=== PATIENT | male | born 1965 | race African-American/Black ===

== ENCOUNTER 2017-01-31 15:53 | Inpatient (IN) | payer OTHER ==
[2017-01-31 17:00] VITALS: BMI 33.5
--- NOTE | 2017-01-31 19:27 | HP ---
CIWA Score - CIWA Score Nausea/Vomitin Muscle Tremors: 4-Moderate,w/Arms Extend Anxiety: 5 Agitation: 5 Paroxysmal Sweats: 2 Orientation: 0-Oriented Tacttile Disturbances: 0-None Auditory Disturbances: 0-None Visual Disturbances: 0-None Headache: 1-Very Mild CIWA-Ar Total Score: 20 Admission ROS BHS - HPI Chief Complaint: WITHDRAWAL SYMPTOMS Allergies/Adverse Reactions: Allergies Allergy/AdvReac Type Severity Reaction Status Date / Time RASHAD Inhibitors Allergy Severe Swelling Verified 12/21/16 18:37 lisinopril Allergy Severe Swelling Verified 12/21/16 18:37 History of Present Illness: 51 Y.O. MAN WITH AN EXTENSIVE HISTORY OF ALCOHOL DEPENDENCE IS SEEKING DETOX. HE WAS LAST HERE FOR DETOX IN 12/2016. HE DENIES ANY SIGNIFICANT PERIOD OF SOBRIETY. Exam Limitations: Intoxication - Ebola screening Have you traveled outside of the country in the last 21 days: No Have you had contact with anyone from an Ebola affected area: No Have you been sick,other than usual withdrawal symptoms: No Do you have a fever: No - Review of Systems Constitutional: Chills, Diaphoresis EENT: reports: No Symptoms Reported Respiratory: reports: No Symptoms reported Cardiac: reports: No Symptoms Reported GI: reports: No Symptoms Reported : reports: No Symptoms Reported Musculoskeletal: reports: No Symptoms Reported Integumentary: reports: No Symptoms Reported Neuro: reports: Tremors Endocrine: reports: No Symptoms Reported Hematology: reports: No Symptoms Reported Psychiatric: reports: Anxious, Depressed Other Systems: Reviewed and Negative Patient History - Patient Medical History Hx Anemia: No Hx Asthma: No Hx Chronic Obstructive Pulmonary Disease (COPD): No Hx Cancer: No Hx Cardiac Disorders: Yes (CAD, REPORTS [place] IN 2013) Hx Congestive Heart Failure: No Hx Hypertension: Yes (on meds.) Hx Hypercholesterolemia: Yes (gemfibrozil 600 mg po bid) Hx Pacemaker: No HX Cerebrovascular Accident: No Hx Seizures: No Hx Dementia: No Hx Diabetes: Yes (Type II) Hx Gastrointestinal Disorders: No Hx Liver Disease: No Hx Genitourinary Disorders: No Hx Sexually Transmitted Disorders: No Hx Renal Disease (ESRD): No Hx Thyroid Disease: No Hx Human Immunodeficiency Virus (HIV): No (NEGATIVE HX) Hx Hepatitis C: No Hx Depression: Yes Hx Suicide Attempt: No Hx Bipolar Disorder: No Hx Schizophrenia: No - Patient Surgical History Past Surgical History: No Hx Neurologic Surgery: No Hx Cataract Extraction: No Hx Cardiac Surgery: No Hx Lung Surgery: No Hx Breast Surgery: No Hx Breast Biopsy: No Hx Abdominal Surgery: No Hx Appendectomy: No Hx Cholecystectomy: No Hx Genitourinary Surgery: Yes (left kidney stone 2015) Hx Section: No Hx Orthopedic Surgery: No Other Surgical History: left kidney stone removed 11/2015 Anesthesia Reaction: No - Reproductive History Patient is a Female of Child Bearing Age (11 -55 yrs old): No - Smoking Cessation Smoking history: Never smoked Have you smoked in the past 12 months: No If you are a former smoker, when did you quit?: STOPPED "IN MY TEENS" Cigars Per Day: 0 Hx Chewing Tobacco Use: No - Substance & Tx. History Hx Alcohol Use: Yes Hx Substance Use: No Substance Use Type: Alcohol Hx Substance Use Treatment: Yes (DETOX AND REHAB ) - Substances Abused Alcohol Route: Oral Frequency: Daily Amount used: 1-2 PINTS OF VODKA; 2-3 CANS 24 OZ OF BEER Age of first use: 19 Date of Last Use: 01/31/17 Family Disease History - Family Disease History Family Disease History: Heart Disease: Mother (HTN), Other: Mother Admission Physical Exam S - Vital Signs Vital Signs: Vital Signs - 24 hr 01/31/17 16:58 Temperature 99.8 F H Pulse Rate 127 H Respiratory 20 Rate Blood Pressure 138/82 - Physical General Appearance: Yes: Disheveled, Tremorous, Irritable, Anxious HEENTM: Yes: Hearing grossly Normal, Normal ENT Inspection, Normal Voice Respiratory: Yes: Chest Non-Tender, Lungs Clear, Normal Breath Sounds, No Respiratory Distress, No Accessory Muscle Use Neck: Yes: Trachea in good position Breast: Yes: Breast Exam Deferred Cardiology: Yes: Tachycardia Abdominal: Yes: Flat, Soft Genitourinary: Yes: Other (NO COMPLAINTS REPORTED) Back: Yes: Normal Inspection Musculoskeletal: Yes: Other (UNSTEADY GAIT) Extremities: Yes: Tremors Neurological: Yes: Alert Integumentary: Yes: Dry, Warm Lymphatic: Yes: Within Normal Limits - Diagnostic (1) Alcohol dependence with uncomplicated withdrawal Current Visit: Yes Status: Chronic (2) Essential (primary) hypertension Current Visit: Yes Status: Chronic Comment: 169/ atenolon 100 mg + amlodipine 10 mg now (3) Hyperlipemia Current Visit: Yes Status: Chronic Qualifiers: Hyperlipidemia type: pure hypercholesterolemia (4) Type 2 diabetes mellitus Current Visit: Yes Status: Chronic Qualifiers: Diabetes mellitus complication status: with hypoglycemia Diabetes mellitus complication detail: without coma Diabetes mellitus long term care administrator insulin use: unspecified nursing home insulin use status Qualified Code(s): E11.649 - Type 2 diabetes mellitus with hypoglycemia without coma; Z79.4 - custodial (current) use of insulin Comment: refuse metformin begin bgm qid + insulin coverage hgb a1c pending (5) History of positive PPD Current Visit: Yes Status: Chronic Cleared for Admission [facility] - Detox or Rehab [facility] Level of Care: Medically Managed Detox Regimen/Protocol: Valium [facility] Breath Alcohol Content Breath Alcohol Content: 0.219 Urine Drug Screen - Results Drug Screen Negative: No Urine Drug Screen Results: BZO-Benzodiazepines
[2017-01-31] MEDS ORDERED: diazePAM 5 MG TABLET PO ONE (19:40)
[2017-01-31] MEDS ORDERED: P-EPHED 60MG/TRIPROLIDI 2.5MG TABLET PO PRN (19:40)
[2017-01-31] MEDS ORDERED: LOPERAMIDE HCL 2 MG CAPSULE PO PRN (19:40)
[2017-01-31] MEDS ORDERED: guaiFENesin/D-METHORPHAN HB 10 ML UNIT-DOSE CUPS PO PRN (19:40)
[2017-01-31] MEDS ORDERED: MAG HYDROX/AL HYDROX/SIMETH 30 ML UNIT-DOSE CUP PO PRN (19:40)
[2017-01-31] MEDS ORDERED: IBUPROFEN 400 MG TABLET (FP) PO PRN (19:40)
[2017-01-31] MEDS ORDERED: ACETAMINOPHEN 325 MG TABLET (FP) PO PRN (19:40)
[2017-01-31] MEDS ORDERED: MAGNESIUM CITRATE 300 ML BOTTLE PO PRN (19:40)
[2017-01-31] MEDS ORDERED: MENTHOL/PHENOL 1 EACH UD MM PRN (19:40)
[2017-01-31] MEDS ORDERED: hydrOXYzine PAMOATE 50 MG CAPSULE (FP) PO PRN (19:40)
[2017-01-31] MEDS ORDERED: MAGNESIUM HYDROX 2400MG/30ML ORAL SUSPENSION 30 ML CUP PO PRN (19:40)
[2017-01-31] MEDS ORDERED: diphenhydrAMINE HCL 50 MG CAPSULE PO PRN (19:40)
[2017-01-31] MEDS ORDERED: THIAMINE HCL 100 MG TABLET (FP) PO SCH (22:00)
[2017-01-31] MEDS ORDERED: ATORVASTATIN CA 20 MG TABLET (FP) PO SCH (22:00)
[2017-01-31] MEDS: diazePAM 5 MG TABLET PO SCH (23:55)
[2017-02-01] MEDS: diazePAM 5 MG TABLET PO SCH ×3 (06:03→22:16)
[2017-02-01] MEDS: INSULIN SLIDING SCALE (NOVOLOG) 1 VIAL SQ SCH ×2 (07:45→18:15)
[2017-02-01] MEDS: metFORMIN HCL 500 MG TABLET (FP) PO SCH ×2 (08:48→18:51)
--- NOTE | 2017-02-01 08:52 | CONSULT ---
[facility] Psychiatric Consult - Data Date of interview: 02/01/17 Admission source: [facility] Identifying data: This is 51 years old male with no psychiatric hospitalization history intoxicated with: Alcohol Substance Abuse History: - Smoking Cessation. Smoking history: Never smoked. Have you smoked in the past 12 months: No. If you are a former smoker, when did you quit?: STOPPED "IN MY TEENS". Cigars Per Day: 0. Hx Chewing Tobacco Use: No. - Substance & Tx. History. Hx Alcohol Use: Yes. Hx Substance Use: No. Substance Use Type: Alcohol. Hx Substance Use Treatment: Yes (DETOX AND REHAB ). - Substances Abused. Alcohol. Route: Oral. Frequency: Daily. Amount used: 1-2 PINTS OF VODKA; 2-3 CANS 24 OZ OF BEER. Age of first use: 19. Date of Last Use: 01/31/17 Medical History: HTN, PPD+ history, Hyperlipidemia. History of VT, DM-2, Obesity , CAD, Psychiatric History: Patient reports history of depression , reports taking prior to admission Zoloft 50mg poqd, refusing to restart it Physical/Sexual Abuse/Trauma History: Denies Additional Comment: Observation. Detox Unit Care Protocol Mental Status Exam - Mental Status Exam Alert and Oriented to: Person Cognitive Function: Fair Patient Appearance: Unkempt Mood: Sad Affect: Flat Patient Behavior: Sedated Speech Pattern: Delayed Voice Loudness: Mildly Soft/Quiet Thought Process: Circumstantial Thought Disorder: Being Controlled Hallucinations: Denies Suicidal Ideation: Denies Homicidal Ideation: Denies Insight/Judgement: Fair Sleep: Difficulty falling asleep Appetite: Weight gain Muscle strength/Tone: Mild Hypotonicity Gait/Station: Shuffling Additional Comments: Observation. Detox Unit Care Protocol Psychiatric Findings - Problem List ([place] 1, 2,3) (1) Alcohol dependence with uncomplicated withdrawal Current Visit: Yes Status: Chronic (2) Depressive disorder Current Visit: No Status: Acute (3) Substance induced mood disorder Current Visit: No Status: Acute (4) Obesity Current Visit: No Status: Chronic Qualifiers: Obesity type: unspecified obesity type Obesity severity: morbid Qualified Code(s): E66.01 - Morbid (severe) obesity due to excess calories (5) Alcohol-induced mood disorder Current Visit: Yes Status: Acute - Initial Treatment Plan Initial Treatment Plan: Observation. Detox Unit Care Protocol
[2017-02-01] MEDS ORDERED: ATENOLOL 50 MG TABLET (FP) PO SCH (10:00)
[2017-02-01] MEDS ORDERED: ASPIRIN 81 MG CHEWABLE TABLETS PO SCH (10:00)
[2017-02-01] MEDS ORDERED: PRENATAL VITAMINS W/ FOLIC ACID TABLET (FP) PO SCH (10:00)
[2017-02-01] MEDS ORDERED: amLODIPine BESYLATE 10 MG TABLET (FP) PO SCH (10:00)
[2017-02-01] MEDS: diazePAM 5 MG TABLET PO PRN ×2 (10:20→18:15)
--- NOTE | 2017-02-01 10:41 | PN ---
BHS CIWA - CIWA Score Nausea/Vomitin Muscle Tremors: 2 Anxiety: 2 Agitation: 2 Paroxysmal Sweats: 3 Orientation: 0-Oriented Tacttile Disturbances: 2-Mild Itch/Numbness/Burn Auditory Disturbances: 0-None Visual Disturbances: 0-None Headache: 0-None Present CIWA-Ar Total Score: 13 BHS Progress Note (SOAP) Subjective: interrupted sleep, sweats but better Objective: 02/01/17 10:40 Vital Signs Temperature 98.2 F 02/01/17 09:57 Pulse Rate 117 H 02/01/17 09:57 Respiratory Rate 18 02/01/17 09:57 Blood Pressure 160/100 02/01/17 09:57 O2 Sat by Pulse Oximetry (%) Laboratory Tests 01/31/17 02/01/17 20:33 06:03 POC Glucometer 177 128 Laboratory Tests 01/31/17 02/01/17 20:33 06:03 POC Glucometer 177 128 pt aox3 in nad ambulating Assessment: 02/01/17 10:41 withdrawal sx's Plan: cont. detox increase fluids
[2017-02-01 10:42] LABS: MCH 28.7 pg (25.7-33.7); MCHC 33.8 g/dl (32.0-35.9); MEAN PLT VOLUME 7.2 fl (7.5-11.1); PLATELET COUNT 289 K/MM3 (134-434); RDW 13.8 % (11.9-15.9); WHITE BLOOD COUNT 4.1 K/mm3 (4.0-10.0)
[2017-02-01 11:09] LABS: ALBUMIN 3.7 g/dl (3.4-5.0); ALK PHOS 105 U/L (45-117); ANION GAP 11 (8-16); BILIRUBIN,TOTAL 0.3 mg/dL (0.2-1.0); CALCIUM 8.7 mg/dL (8.5-10.1); CO2 26 mmol/L (21-32); COCKROFT - GAULT 162.15; CREATININE 0.8 mg/dL (0.7-1.3); GLUCOSE,RANDOM 124 mg/dL (74-106); SGOT/AST 59 U/L (15-37); SGPT/ALT 58 U/L (12-78); TOT PROT 7.5 g/dl (6.4-8.2)
[2017-02-01 11:45] LABS: HIV 1 & 2 AB NEGATIVE; HIV 1 AGp24 NEGATIVE
[2017-02-01] MEDS: GEMFIBROZIL 600 MG TABLET (FP) PO SCH ×2 (12:22→18:51)
--- NOTE | 2017-02-01 12:32 | EKG ---
Test Reason : Blood Pressure : / mmHG Vent. Rate : 110 BPM Atrial Rate : 110 BPM P-R Int : 174 ms QRS Dur : 080 ms QT Int : 314 ms P-R-T Axes : 040 043 181 degrees QTc Int : 424 ms SINUS TACHYCARDIA POSSIBLE LEFT ATRIAL ENLARGEMENT T WAVE ABNORMALITY, CONSIDER INFERIOR ISCHEMIA ABNORMAL ECG WHEN COMPARED WITH ECG OF 22-DEC-2016 07:22, T WAVE INVERSION NOW EVIDENT IN INFERIOR LEADS Confirmed by SAM BISHOP, LISANDRO ([id number]) on 02/01/2017 12:32:03 PM Referred By: Confirmed By:LISANDRO VARGAS MD
[2017-02-01] MEDS ORDERED: ACETAMINOPHEN 325 MG TABLET (FP) PO PRN (17:33)
[2017-02-01] MEDS ORDERED: P-EPHED 60MG/TRIPROLIDI 2.5MG TABLET PO PRN (17:34)
[2017-02-01] MEDS ORDERED: guaiFENesin/D-METHORPHAN HB 10 ML UNIT-DOSE CUPS PO PRN (17:35)
[2017-02-01] MEDS ORDERED: LOPERAMIDE HCL 2 MG CAPSULE PO PRN (17:36)
[2017-02-01] MEDS ORDERED: hydrOXYzine PAMOATE 50 MG CAPSULE (FP) PO PRN (17:36)
[2017-02-01] MEDS ORDERED: MAGNESIUM HYDROX 2400MG/30ML ORAL SUSPENSION 30 ML CUP PO PRN (17:37)
[2017-02-01] MEDS ORDERED: MAGNESIUM CITRATE 300 ML BOTTLE PO PRN (17:37)
[2017-02-01] MEDS ORDERED: MAG HYDROX/AL HYDROX/SIMETH 30 ML UNIT-DOSE CUP PO PRN (17:37)
[2017-02-01] MEDS ORDERED: MENTHOL/PHENOL 1 EACH UD MM PRN (17:37)
[2017-02-01 17:41] LABS: URINE APPEARANCE CLEAR; URINE BILIRUBIN NEGATIVE (NEGATIVE); URINE COLOR STRAW; URINE GLUCOSE (UA) NEGATIVE (NEGATIVE); URINE KETONE NEGATIVE (NEGATIVE); URINE LEUK ESTERASE NEGATIVE (NEGATIVE); URINE NITRITE NEGATIVE (NEGATIVE); URINE UROBILINOGEN NEGATIVE E.U./dl (0.2-1.0)
[2017-02-01] MEDS ORDERED: INSULIN (NOVOLOG) ASPART 100 UNITS/ML 10ML VIAL ONE (17:58)
[2017-02-01 18:08] LABS: URINE BLOOD 1+ (NEGATIVE); URINE PROTEIN 1+ (NEGATIVE)
[2017-02-01] MEDS ORDERED: metFORMIN HCL 500 MG TABLET (FP) PO ONE (18:15)
[2017-02-01] MEDS ORDERED: GEMFIBROZIL 600 MG TABLET (FP) PO ONE (18:15)
[2017-02-01 19:13] LABS: URINE MUCUS RARE; URINE RBC 3 /hpf (0-3); URINE WBC 1 /hpf (3-5)
[2017-02-01] MEDS: ATORVASTATIN CA 20 MG TABLET (FP) PO SCH (22:16)
[2017-02-01] MEDS: THIAMINE HCL 100 MG TABLET (FP) PO SCH (22:16)
[2017-02-01] MEDS: diphenhydrAMINE HCL 50 MG CAPSULE PO PRN (22:17)
[2017-02-02] MEDS: GEMFIBROZIL 600 MG TABLET (FP) PO SCH ×2 (07:05→18:27)
[2017-02-02] MEDS: metFORMIN HCL 500 MG TABLET (FP) PO SCH ×2 (07:05→18:30)
[2017-02-02] MEDS: INSULIN SLIDING SCALE (NOVOLOG) 1 VIAL SQ SCH ×2 (07:06→18:30)
[2017-02-02] MEDS: ASPIRIN 81 MG CHEWABLE TABLETS PO SCH (10:35)
[2017-02-02] MEDS: PRENATAL VITAMINS W/ FOLIC ACID TABLET (FP) PO SCH (10:35)
[2017-02-02] MEDS: diazePAM 5 MG TABLET PO SCH ×2 (10:35→22:14)
[2017-02-02] MEDS: ATENOLOL 50 MG TABLET (FP) PO SCH (10:35)
--- NOTE | 2017-02-02 12:44 | PN ---
[facility] CIWA - CIWA Score Nausea/Vomitin-No Nausea/No Vomiting Muscle Tremors: 4-Moderate,w/Arms Extend Anxiety: 4-Mod. Anxious/Guarded Agitation: 4-Moderately Restless Paroxysmal Sweats: 1-Minimal Palms Moist Orientation: 0-Oriented Tacttile Disturbances: 2-Mild Itch/Numbness/Burn Auditory Disturbances: 2-Mild Harshness/Frighten Visual Disturbances: 0-None Headache: 0-None Present CIWA-Ar Total Score: 17 BHS Progress Note (SOAP) Subjective: Interrupted sleep, Body Aches, Tremors. Objective: PT. A & O X 3. 02/02/17 12:41 Vital Signs Temperature 97.7 F 02/02/17 11:57 Pulse Rate 97 H 02/02/17 11:57 Respiratory Rate 20 02/02/17 11:57 Blood Pressure 172/99 02/02/17 11:57 O2 Sat by Pulse Oximetry (%) Laboratory Last Values WBC 4.1 K/mm3 (4.0-10.0) 02/01/17 07:00 RBC 4.11 M/mm3 (4.00-5.60) 02/01/17 07:00 Hgb 11.8 GM/dL (11.7-16.9) D 02/01/17 07:00 Hct 34.9 % (35.4-49) L 02/01/17 07:00 MCV 85.0 fl (80-96) 02/01/17 07:00 MCHC 33.8 g/dl (32.0-35.9) 02/01/17 07:00 RDW 13.8 % (11.9-15.9) 02/01/17 07:00 Plt Count 289 K/MM3 (134-434) D 02/01/17 07:00 MPV 7.2 fl (7.5-11.1) L 02/01/17 07:00 Sodium 142 mmol/L (136-145) 02/01/17 07:00 Potassium 4.0 mmol/L (3.5-5.1) D 02/01/17 07:00 Chloride 105 mmol/L (98-107) 02/01/17 07:00 Carbon Dioxide 26 mmol/L (21-32) 02/01/17 07:00 Anion Gap 11 (8-16) 02/01/17 07:00 BUN 23 mg/dL (7-18) H D 02/01/17 07:00 Creatinine 0.8 mg/dL (0.7-1.3) 02/01/17 07:00 Creat Clearance w eGFR > 60 (>60) 02/01/17 07:00 POC Glucometer 144 UNITS (()) 02/02/17 05:35 Random Glucose 124 mg/dL (74-106) H D 02/01/17 07:00 Calcium 8.7 mg/dL (8.5-10.1) 02/01/17 07:00 Total Bilirubin 0.3 mg/dL (0.2-1.0) D 02/01/17 07:00 AST 59 U/L (15-37) H D 02/01/17 07:00 ALT 58 U/L (12-78) D 02/01/17 07:00 Alkaline Phosphatase 105 U/L (45-117) D 02/01/17 07:00 Total Protein 7.5 g/dl (6.4-8.2) 02/01/17 07:00 Albumin 3.7 g/dl (3.4-5.0) 02/01/17 07:00 Urine Color Straw 02/01/17 14:00 Urine Appearance Clear 02/01/17 14:00 Urine pH 7.0 (5.0-8.0) D 02/01/17 14:00 Ur Specific [place] 1.016 (1.001-1.035) 02/01/17 14:00 Urine Protein 1+ (NEGATIVE) H 02/01/17 14:00 Urine Glucose (UA) Negative (NEGATIVE) 02/01/17 14:00 Urine Ketones Negative (NEGATIVE) 02/01/17 14:00 Urine Blood 1+ (NEGATIVE) H 02/01/17 14:00 Urine Nitrite Negative (NEGATIVE) 02/01/17 14:00 Urine Bilirubin Negative (NEGATIVE) 02/01/17 14:00 Urine Urobilinogen Negative E.U./dl (0.2-1.0) 02/01/17 14:00 Ur Leukocyte Esterase Negative (NEGATIVE) 02/01/17 14:00 Urine RBC 3 /hpf (0-3) 02/01/17 14:00 Urine WBC 1 /hpf (3-5) 02/01/17 14:00 Urine Mucus Rare 02/01/17 14:00 RPR Titer Nonreactive (NONREACTIVE) 02/01/17 07:00 HIV 1&2 Antibody Screen Negative 02/01/17 08:00 HIV P24 Antigen Negative 02/01/17 08:00 LABS NOTED. Assessment: 02/02/17 12:43 WITHDRAWAL SYMPTOMS. Plan: CONTINUE DETOX. ADVISED PATIENT TO FOLLOW-UP WITH [facility] / REHAB MEDICAL PROVIDER AFTER DISCHARGE FROM DETOX FOR GENERAL MEDICAL ASSESSMENT AND FOR ABNORMAL ADMISSION LAB VALUES.
[2017-02-02] MEDS: amLODIPine BESYLATE 10 MG TABLET (FP) PO SCH (14:12)
[2017-02-02] MEDS ORDERED: INSULIN (NOVOLOG) ASPART 100 UNITS/ML 10ML VIAL ONE (17:06)
[2017-02-02] MEDS: diphenhydrAMINE HCL 50 MG CAPSULE PO PRN (22:14)
[2017-02-02] MEDS: THIAMINE HCL 100 MG TABLET (FP) PO SCH (22:14)
[2017-02-02] MEDS: ATORVASTATIN CA 20 MG TABLET (FP) PO SCH (22:14)
[2017-02-03] MEDS: GEMFIBROZIL 600 MG TABLET (FP) PO SCH ×2 (07:34→17:34)
[2017-02-03] MEDS: metFORMIN HCL 500 MG TABLET (FP) PO SCH ×2 (07:34→17:33)
[2017-02-03] MEDS: INSULIN SLIDING SCALE (NOVOLOG) 1 VIAL SQ SCH ×2 (08:32→17:38)
[2017-02-03] MEDS: ASPIRIN 81 MG CHEWABLE TABLETS PO SCH (10:20)
[2017-02-03] MEDS: ATENOLOL 50 MG TABLET (FP) PO SCH (10:20)
[2017-02-03] MEDS: diazePAM 5 MG TABLET PO SCH ×2 (10:20→22:15)
[2017-02-03] MEDS: amLODIPine BESYLATE 10 MG TABLET (FP) PO SCH (10:20)
[2017-02-03] MEDS: PRENATAL VITAMINS W/ FOLIC ACID TABLET (FP) PO SCH (10:20)
[2017-02-03] MEDS ORDERED: INSULIN (NOVOLOG) ASPART 100 UNITS/ML 10ML VIAL ONE (16:53)
--- NOTE | 2017-02-03 17:16 | PN ---
BHS Progress Note (SOAP) Subjective: Tremors, Interrupted sleep. Objective: PT. A & O X 3, OBSERVED AMBULATING ON UNIT. 02/03/17 17:14 Vital Signs Temperature 97.9 F 02/03/17 14:32 Pulse Rate 85 02/03/17 14:32 Respiratory Rate 16 02/03/17 14:32 Blood Pressure 159/91 02/03/17 14:32 O2 Sat by Pulse Oximetry (%) Laboratory Last Values WBC 4.1 K/mm3 (4.0-10.0) 02/01/17 07:00 RBC 4.11 M/mm3 (4.00-5.60) 02/01/17 07:00 Hgb 11.8 GM/dL (11.7-16.9) D 02/01/17 07:00 Hct 34.9 % (35.4-49) L 02/01/17 07:00 MCV 85.0 fl (80-96) 02/01/17 07:00 MCHC 33.8 g/dl (32.0-35.9) 02/01/17 07:00 RDW 13.8 % (11.9-15.9) 02/01/17 07:00 Plt Count 289 K/MM3 (134-434) D 02/01/17 07:00 MPV 7.2 fl (7.5-11.1) L 02/01/17 07:00 Sodium 142 mmol/L (136-145) 02/01/17 07:00 Potassium 4.0 mmol/L (3.5-5.1) D 02/01/17 07:00 Chloride 105 mmol/L (98-107) 02/01/17 07:00 Carbon Dioxide 26 mmol/L (21-32) 02/01/17 07:00 Anion Gap 11 (8-16) 02/01/17 07:00 BUN 23 mg/dL (7-18) H D 02/01/17 07:00 Creatinine 0.8 mg/dL (0.7-1.3) 02/01/17 07:00 Creat Clearance w eGFR > 60 (>60) 02/01/17 07:00 POC Glucometer 199 UNITS (()) 02/03/17 16:27 Random Glucose 124 mg/dL (74-106) H D 02/01/17 07:00 Calcium 8.7 mg/dL (8.5-10.1) 02/01/17 07:00 Total Bilirubin 0.3 mg/dL (0.2-1.0) D 02/01/17 07:00 AST 59 U/L (15-37) H D 02/01/17 07:00 ALT 58 U/L (12-78) D 02/01/17 07:00 Alkaline Phosphatase 105 U/L (45-117) D 02/01/17 07:00 Total Protein 7.5 g/dl (6.4-8.2) 02/01/17 07:00 Albumin 3.7 g/dl (3.4-5.0) 02/01/17 07:00 Urine Color Straw 02/01/17 14:00 Urine Appearance Clear 02/01/17 14:00 Urine pH 7.0 (5.0-8.0) D 02/01/17 14:00 Ur Specific [place] 1.016 (1.001-1.035) 02/01/17 14:00 Urine Protein 1+ (NEGATIVE) H 02/01/17 14:00 Urine Glucose (UA) Negative (NEGATIVE) 02/01/17 14:00 Urine Ketones Negative (NEGATIVE) 02/01/17 14:00 Urine Blood 1+ (NEGATIVE) H 02/01/17 14:00 Urine Nitrite Negative (NEGATIVE) 02/01/17 14:00 Urine Bilirubin Negative (NEGATIVE) 02/01/17 14:00 Urine Urobilinogen Negative E.U./dl (0.2-1.0) 02/01/17 14:00 Ur Leukocyte Esterase Negative (NEGATIVE) 02/01/17 14:00 Urine RBC 3 /hpf (0-3) 02/01/17 14:00 Urine WBC 1 /hpf (3-5) 02/01/17 14:00 Urine Mucus Rare 02/01/17 14:00 RPR Titer Nonreactive (NONREACTIVE) 02/01/17 07:00 HIV 1&2 Antibody Screen Negative 02/01/17 08:00 HIV P24 Antigen Negative 02/01/17 08:00 LABS NOTED. Assessment: 02/03/17 17:15 WITHDRAWAL SYMPTOMS. Plan: CONTINUE DETOX. ADVISED PATIENT TO FOLLOW-UP WITH [facility] / REHAB MEDICAL PROVIDER AFTER DISCHARGE FROM DETOX FOR GENERAL MEDICAL ASSESSMENT AND FOR ABNORMAL ADMISSION LAB VALUES.
[2017-02-03] MEDS: THIAMINE HCL 100 MG TABLET (FP) PO SCH (22:14)
[2017-02-03] MEDS: ATORVASTATIN CA 20 MG TABLET (FP) PO SCH (22:14)
[2017-02-03] MEDS: diphenhydrAMINE HCL 50 MG CAPSULE PO PRN (22:15)
[2017-02-04] MEDS: metFORMIN HCL 500 MG TABLET (FP) PO SCH (06:10)
[2017-02-04] MEDS: GEMFIBROZIL 600 MG TABLET (FP) PO SCH (06:10)
[2017-02-04 06:41] VITALS: BP 145/87; PULSE 79; TEMP 97
[2017-02-04] MEDS: INSULIN SLIDING SCALE (NOVOLOG) 1 VIAL SQ SCH (07:24)
[2017-02-04] MEDS ORDERED: diazePAM 5 MG TABLET PO SCH (10:00)
--- NOTE | 2017-02-04 13:49 | DS ---
[facility] Detox Discharge Summary Admission Date: 01/31/17 Discharge Date: 02/04/17 - History Present History: Alcohol Dependence Pertinent Past History: HTN Type II DM - Physical Exam Results Vital Signs: Vital Signs Temperature 97.0 F L 02/04/17 06:00 Pulse Rate 79 02/04/17 06:00 Respiratory Rate 18 02/04/17 06:00 Blood Pressure 145/87 02/04/17 06:00 O2 Sat by Pulse Oximetry (%) Pertinent Admission Physical Exam Findings: Withdrawal sx. Laboratory Last Values WBC 4.1 K/mm3 (4.0-10.0) 02/01/17 07:00 RBC 4.11 M/mm3 (4.00-5.60) 02/01/17 07:00 Hgb 11.8 GM/dL (11.7-16.9) D 02/01/17 07:00 Hct 34.9 % (35.4-49) L 02/01/17 07:00 MCV 85.0 fl (80-96) 02/01/17 07:00 MCHC 33.8 g/dl (32.0-35.9) 02/01/17 07:00 RDW 13.8 % (11.9-15.9) 02/01/17 07:00 Plt Count 289 K/MM3 (134-434) D 02/01/17 07:00 MPV 7.2 fl (7.5-11.1) L 02/01/17 07:00 Sodium 142 mmol/L (136-145) 02/01/17 07:00 Potassium 4.0 mmol/L (3.5-5.1) D 02/01/17 07:00 Chloride 105 mmol/L (98-107) 02/01/17 07:00 Carbon Dioxide 26 mmol/L (21-32) 02/01/17 07:00 Anion Gap 11 (8-16) 02/01/17 07:00 BUN 23 mg/dL (7-18) H D 02/01/17 07:00 Creatinine 0.8 mg/dL (0.7-1.3) 02/01/17 07:00 Creat Clearance w eGFR > 60 (>60) 02/01/17 07:00 POC Glucometer 163 UNITS (()) 02/04/17 06:08 Random Glucose 124 mg/dL (74-106) H D 02/01/17 07:00 Calcium 8.7 mg/dL (8.5-10.1) 02/01/17 07:00 Total Bilirubin 0.3 mg/dL (0.2-1.0) D 02/01/17 07:00 AST 59 U/L (15-37) H D 02/01/17 07:00 ALT 58 U/L (12-78) D 02/01/17 07:00 Alkaline Phosphatase 105 U/L (45-117) D 02/01/17 07:00 Total Protein 7.5 g/dl (6.4-8.2) 02/01/17 07:00 Albumin 3.7 g/dl (3.4-5.0) 02/01/17 07:00 Urine Color Straw 02/01/17 14:00 Urine Appearance Clear 02/01/17 14:00 Urine pH 7.0 (5.0-8.0) D 02/01/17 14:00 Ur Specific [place] 1.016 (1.001-1.035) 02/01/17 14:00 Urine Protein 1+ (NEGATIVE) H 02/01/17 14:00 Urine Glucose (UA) Negative (NEGATIVE) 02/01/17 14:00 Urine Ketones Negative (NEGATIVE) 02/01/17 14:00 Urine Blood 1+ (NEGATIVE) H 02/01/17 14:00 Urine Nitrite Negative (NEGATIVE) 02/01/17 14:00 Urine Bilirubin Negative (NEGATIVE) 02/01/17 14:00 Urine Urobilinogen Negative E.U./dl (0.2-1.0) 02/01/17 14:00 Ur Leukocyte Esterase Negative (NEGATIVE) 02/01/17 14:00 Urine RBC 3 /hpf (0-3) 02/01/17 14:00 Urine WBC 1 /hpf (3-5) 02/01/17 14:00 Urine Mucus Rare 02/01/17 14:00 RPR Titer Nonreactive (NONREACTIVE) 02/01/17 07:00 HIV 1&2 Antibody Screen Negative 02/01/17 08:00 HIV P24 Antigen Negative 02/01/17 08:00 labs noted - Treatment Hospital Course: Detox Protocol Followed, Detoxed Safely, Responded well, Discharged Condition Good, Rehab Referral Accepted Patient has Accepted a Rehab Referral to: [facility] - Medication Discharge Medications: Ambulatory Orders Aspirin [ASA -] 81 mg PO DAILY 11/20/14 Thiamine HCl [Vitamin B-1] 100 mg PO DAILY 02/11/16 Amlodipine Besylate [Norvasc -] 10 mg PO DAILY #0 tablet 02/15/16 Atenolol [Tenormin -] 100 mg PO DAILY #0 tablet 02/15/16 Gemfibrozil [Lopid -] 600 mg PO BID #0 tablet 02/15/16 Metformin HCl [Glucophage -] 500 mg PO BIDAC #0 tablet 02/15/16 Atorvastatin Calcium 20 mg PO DAILY 12/21/16 Multivitamins [Tab-A-Vit -] 1 tab PO DAILY 12/21/16 Sertraline HCl [Zoloft -] 50 mg PO DAILY 12/21/16 Ranitidine [Zantac -] 150 mg PO BID #60 tablet 12/25/16 - Diagnosis (1) Alcohol-induced mood disorder Status: Acute (2) Substance induced mood disorder Status: Acute (3) Alcohol dependence with uncomplicated withdrawal Status: Chronic (4) Essential (primary) hypertension Status: Chronic (5) Hx of coronary artery disease Status: Chronic (6) Hyperlipemia Status: Chronic Qualifiers: Hyperlipidemia type: pure hypercholesterolemia (7) Obesity Status: Chronic Qualifiers: Obesity type: unspecified obesity type Obesity severity: morbid Qualified Code(s): E66.01 - Morbid (severe) obesity due to excess calories (8) Type 2 diabetes mellitus Status: Chronic Qualifiers: Diabetes mellitus complication status: with hypoglycemia Diabetes mellitus complication detail: without coma Diabetes mellitus assisted insulin use: unspecified assisted insulin use status Qualified Code(s): E11.649 - Type 2 diabetes mellitus with hypoglycemia without coma; Z79.4 - terminal gauger (current) use of insulin (9) Depressive disorder Status: Acute (10) Insomnia Status: Acute - AMA Did Patient Leave Against Medical Advice: No
== END 2017-02-04 07:25 | disposition home or self-care (01) | DRG 775 ==
LOC: YASAS 15:53 → Y6N 20:24 → UNDODISIN 02-01 15:29
PROVIDERS: ADMIT Internal Medicine Addiction Medicine; ATTEND Internal Medicine Addiction Medicine
PROC: HZ2ZZZZ Detoxification Services for Substance Abuse Treatment (ICD-10-PCS; principal; 2017-01-31)
DX: F10.230 Alcohol dependence with withdrawal, uncomplicated (principal); F10.24 Alcohol dependence with alcohol-induced mood disorder; F19.24 Other psychoactive substance dependence with psychoactive substance-induced mood disorder; F32.9 Major depressive disorder, single episode, unspecified; I10 Essential (primary) hypertension; I25.10 Atherosclerotic heart disease of native coronary artery without angina pectoris; I25.2 Old myocardial infarction; E78.5 Hyperlipidemia, unspecified; E66.01 Morbid (severe) obesity due to excess calories; Z68.33 Body mass index [BMI] 33.0-33.9, adult; E11.649 Type 2 diabetes mellitus with hypoglycemia without coma; Z79.4 Long term (current) use of insulin; G47.00 Insomnia, unspecified; R00.0 Tachycardia, unspecified; Z59.0 Homelessness
CPT/HCPCS: 36415; 80053; 81003; 81015; 85027; 86593; 87389; 93005; 93010

== ENCOUNTER 2017-03-12 09:34 | Inpatient (IN) | payer OTHER ==
[2017-03-12 11:10] VITALS: BMI 32.3
[2017-03-12] MEDS ORDERED: MAGNESIUM CITRATE 300 ML BOTTLE PO PRN (14:26)
[2017-03-12] MEDS ORDERED: MAG HYDROX/AL HYDROX/SIMETH 30 ML UNIT-DOSE CUP PO PRN (14:26)
[2017-03-12] MEDS ORDERED: MAGNESIUM HYDROX 2400MG/30ML ORAL SUSPENSION 30 ML CUP PO PRN (14:26)
[2017-03-12] MEDS ORDERED: LOPERAMIDE HCL 2 MG CAPSULE PO PRN (14:26)
[2017-03-12] MEDS ORDERED: ACETAMINOPHEN 325 MG TABLET (FP) PO PRN (14:26)
[2017-03-12] MEDS ORDERED: diphenhydrAMINE HCL 50 MG CAPSULE PO PRN (14:26)
[2017-03-12] MEDS ORDERED: MENTHOL/PHENOL 1 EACH UD MM PRN (14:26)
[2017-03-12] MEDS ORDERED: chlordiazePOXIDE HCL 25 MG CAPSULE PO PRN (14:26)
[2017-03-12] MEDS ORDERED: guaiFENesin/D-METHORPHAN HB 10 ML UNIT-DOSE CUPS PO PRN (14:26)
[2017-03-12] MEDS ORDERED: hydrOXYzine PAMOATE 50 MG CAPSULE (FP) PO PRN (14:26)
[2017-03-12] MEDS ORDERED: P-EPHED 60MG/TRIPROLIDI 2.5MG TABLET PO PRN (14:26)
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
[2017-03-12] MEDS ORDERED: chlordiazePOXIDE HCL 25 MG CAPSULE PO ONE (15:52)
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
[2017-03-12] MEDS: metFORMIN HCL 500 MG TABLET (FP) PO SCH (16:51)
[2017-03-12] MEDS: ASPIRIN COATED 81 MG TABLET.EC PO SCH (16:51)
[2017-03-12] MEDS: INSULIN (NOVOLOG) ASPART 100 UNITS/ML 10ML VIAL SQ SCH ×2 (16:52→22:33)
[2017-03-12] MEDS: chlordiazePOXIDE HCL 25 MG CAPSULE PO SCH ×2 (16:52→22:33)
[2017-03-12] MEDS: amLODIPine BESYLATE 10 MG TABLET (FP) PO SCH (16:52)
[2017-03-12] MEDS: GEMFIBROZIL 600 MG TABLET (FP) PO SCH (16:54)
[2017-03-12 19:09] LABS: URINE APPEARANCE CLEAR; URINE BILIRUBIN NEGATIVE (NEGATIVE); URINE BLOOD NEGATIVE (NEGATIVE); URINE COLOR STRAW; URINE GLUCOSE (UA) NEGATIVE (NEGATIVE); URINE KETONE NEGATIVE (NEGATIVE); URINE LEUK ESTERASE NEGATIVE (NEGATIVE); URINE NITRITE NEGATIVE (NEGATIVE); URINE PROTEIN NEGATIVE (NEGATIVE); URINE UROBILINOGEN NEGATIVE E.U./dl (0.2-1.0)
[2017-03-12] MEDS: METOPROLOL TARTRATE 50 MG TABLET (FP) PO SCH (22:33)
[2017-03-12] MEDS: RANITIDINE HCL 150 MG TABLET (FP) PO SCH (22:33)
[2017-03-12] MEDS: ATORVASTATIN CA 20 MG TABLET (FP) PO SCH (22:33)
[2017-03-12] MEDS: THIAMINE HCL 100 MG TABLET (FP) PO SCH (22:33)
[2017-03-13] MEDS: metFORMIN HCL 500 MG TABLET (FP) PO SCH ×2 (05:59→17:08)
[2017-03-13] MEDS: chlordiazePOXIDE HCL 25 MG CAPSULE PO SCH ×4 (05:59→22:17)
[2017-03-13] MEDS: GEMFIBROZIL 600 MG TABLET (FP) PO SCH ×2 (07:32→17:08)
[2017-03-13] MEDS: INSULIN (NOVOLOG) ASPART 100 UNITS/ML 10ML VIAL SQ SCH ×4 (07:33→23:03)
[2017-03-13] MEDS: PRENATAL VITAMINS W/ FOLIC ACID TABLET (FP) PO SCH (10:33)
[2017-03-13] MEDS: amLODIPine BESYLATE 10 MG TABLET (FP) PO SCH (10:33)
[2017-03-13] MEDS: RANITIDINE HCL 150 MG TABLET (FP) PO SCH ×2 (10:33→22:18)
[2017-03-13] MEDS: METOPROLOL TARTRATE 50 MG TABLET (FP) PO SCH ×2 (10:33→22:17)
[2017-03-13] MEDS: ASPIRIN COATED 81 MG TABLET.EC PO SCH (10:34)
--- NOTE | 2017-03-13 11:09 | PN ---
[facility] CIWA - CIWA Score Nausea/Vomitin-No Nausea/No Vomiting Muscle Tremors: 4-Moderate,w/Arms Extend Anxiety: 4-Mod. Anxious/Guarded Agitation: 4-Moderately Restless Paroxysmal Sweats: 1-Minimal Palms Moist Orientation: 0-Oriented Tacttile Disturbances: 3-Moderate Itch/Numb/Burn Auditory Disturbances: 0-None Visual Disturbances: 0-None Headache: 0-None Present CIWA-Ar Total Score: 16 BHS Progress Note (SOAP) Subjective: ANXIETY,TREMORS,SWEATS,INTERMITTENT SLEEP Objective: 03/13/17 11:09 Vital Signs Temperature 98.3 F 03/13/17 09:18 Pulse Rate 96 H 03/13/17 09:18 Respiratory Rate 20 03/13/17 09:18 Blood Pressure 140/85 03/13/17 09:18 O2 Sat by Pulse Oximetry (%) Laboratory Last Values POC Glucometer 137 UNITS (()) 03/13/17 05:58 Urine Color Straw 03/12/17 18:56 Urine Appearance Clear 03/12/17 18:56 Urine pH 5.0 (5.0-8.0) D 03/12/17 18:56 Ur Specific [place] 1.015 (1.005-1.025) 03/12/17 18:56 Urine Protein Negative (NEGATIVE) 03/12/17 18:56 Urine Glucose (UA) Negative (NEGATIVE) 03/12/17 18:56 Urine Ketones Negative (NEGATIVE) 03/12/17 18:56 Urine Blood Negative (NEGATIVE) 03/12/17 18:56 Urine Nitrite Negative (NEGATIVE) 03/12/17 18:56 Urine Bilirubin Negative (NEGATIVE) 03/12/17 18:56 Urine Urobilinogen Negative E.U./dl (0.2-1.0) 03/12/17 18:56 Ur Leukocyte Esterase Negative (NEGATIVE) 03/12/17 18:56 Assessment: 03/13/17 11:09 WITHDRAWAL SX Plan: CONTINUE DETOX
[2017-03-13 12:08] LABS: MCH 29.7 pg (25.7-33.7); MCHC 33.3 g/dl (32.0-35.9); MEAN CELL VOLUME 89.4 fl (80-96); MEAN PLT VOLUME 7.5 fl (7.5-11.1); PLATELET COUNT 341 K/MM3 (134-434); RDW 16.6 % (11.9-15.9); WHITE BLOOD COUNT 5.9 K/mm3 (4.0-10.0)
[2017-03-13 12:17] LABS: ALBUMIN 3.3 g/dl (3.4-5.0); ANION GAP 12 (8-16); CALCIUM 8.5 mg/dL (8.5-10.1); CO2 25 mmol/L (21-32); GLUCOSE,RANDOM 178 mg/dL (74-106)
[2017-03-13 12:21] LABS: ALK PHOS 91 U/L (45-117); BILIRUBIN,TOTAL 0.5 mg/dL (0.2-1.0); COCKROFT - GAULT 154.15; CREATININE 0.8 mg/dL (0.7-1.3); SGOT/AST 39 U/L (15-37); SGPT/ALT 38 U/L (12-78); TOT PROT 7.2 g/dl (6.4-8.2)
[2017-03-13 12:32] LABS: HIV 1 & 2 AB NEGATIVE; HIV 1 AGp24 NEGATIVE
--- NOTE | 2017-03-13 14:23 | EKG ---
Test Reason : Blood Pressure : / mmHG Vent. Rate : 100 BPM Atrial Rate : 100 BPM P-R Int : 174 ms QRS Dur : 082 ms QT Int : 324 ms P-R-T Axes : 046 046 269 degrees QTc Int : 417 ms NORMAL SINUS RHYTHM T WAVE ABNORMALITY, CONSIDER INFERIOR ISCHEMIA ABNORMAL ECG WHEN COMPARED WITH ECG OF 31-JAN-2017 20:28, NO SIGNIFICANT CHANGE WAS FOUND Confirmed by RANCHO BRUMFIELD MD ([id number]) on 03/13/2017 2:22:33 PM Referred By: Confirmed By:RANCHO BRUMFIELD MD
[2017-03-13] MEDS ORDERED: INSULIN (NOVOLOG) ASPART 100 UNITS/ML 10ML VIAL ONE (16:43)
[2017-03-13] MEDS: IBUPROFEN 400 MG TABLET (FP) PO PRN (21:12)
[2017-03-13] MEDS: THIAMINE HCL 100 MG TABLET (FP) PO SCH (22:17)
[2017-03-13] MEDS: ZOLPIDEM TARTRATE 5 MG TABLET PO PRN (22:17)
[2017-03-13] MEDS: ATORVASTATIN CA 20 MG TABLET (FP) PO SCH (22:18)
[2017-03-14] MEDS: chlordiazePOXIDE HCL 25 MG CAPSULE PO SCH ×2 (05:44→10:20)
[2017-03-14] MEDS: GEMFIBROZIL 600 MG TABLET (FP) PO SCH ×2 (07:35→16:30)
[2017-03-14] MEDS: INSULIN (NOVOLOG) ASPART 100 UNITS/ML 10ML VIAL SQ SCH ×5 (07:35→22:21)
[2017-03-14] MEDS: metFORMIN HCL 500 MG TABLET (FP) PO SCH ×2 (07:35→16:30)
[2017-03-14] MEDS ORDERED: INSULIN (NOVOLOG) ASPART 100 UNITS/ML 10ML VIAL ONE ×2 (07:38→11:17)
[2017-03-14] MEDS: amLODIPine BESYLATE 10 MG TABLET (FP) PO SCH (10:20)
[2017-03-14] MEDS: PRENATAL VITAMINS W/ FOLIC ACID TABLET (FP) PO SCH (10:20)
[2017-03-14] MEDS: RANITIDINE HCL 150 MG TABLET (FP) PO SCH ×2 (10:20→22:18)
[2017-03-14] MEDS: ASPIRIN COATED 81 MG TABLET.EC PO SCH (10:20)
[2017-03-14] MEDS: METOPROLOL TARTRATE 50 MG TABLET (FP) PO SCH ×2 (10:20→22:18)
--- NOTE | 2017-03-14 12:08 | PN ---
[facility] CIWA - CIWA Score Nausea/Vomitin-No Nausea/No Vomiting Muscle Tremors: 4-Moderate,w/Arms Extend Anxiety: 4-Mod. Anxious/Guarded Agitation: 4-Moderately Restless Paroxysmal Sweats: 1-Minimal Palms Moist Orientation: 0-Oriented Tacttile Disturbances: 3-Moderate Itch/Numb/Burn Auditory Disturbances: 0-None Visual Disturbances: 0-None Headache: 0-None Present CIWA-Ar Total Score: 16 BHS Progress Note (SOAP) Subjective: ANXIETY,SWEATS, INTERMITTENT SLEEP. Objective: 03/14/17 12:07 Vital Signs Temperature 98.8 F 03/14/17 09:31 Pulse Rate 89 03/14/17 09:31 Respiratory Rate 18 03/14/17 09:31 Blood Pressure 151/94 03/14/17 09:31 O2 Sat by Pulse Oximetry (%) Laboratory Last Values WBC 5.9 K/mm3 (4.0-10.0) D 03/13/17 07:00 RBC 3.94 M/mm3 (4.00-5.60) L 03/13/17 07:00 Hgb 11.7 GM/dL (11.7-16.9) 03/13/17 07:00 Hct 35.2 % (35.4-49) L 03/13/17 07:00 MCV 89.4 fl (80-96) 03/13/17 07:00 MCHC 33.3 g/dl (32.0-35.9) 03/13/17 07:00 RDW 16.6 % (11.9-15.9) H D 03/13/17 07:00 Plt Count 341 K/MM3 (134-434) 03/13/17 07:00 MPV 7.5 fl (7.5-11.1) 03/13/17 07:00 Sodium 140 mmol/L (136-145) 03/13/17 07:00 Potassium 3.8 mmol/L (3.5-5.1) 03/13/17 07:00 Chloride 103 mmol/L (98-107) 03/13/17 07:00 Carbon Dioxide 25 mmol/L (21-32) 03/13/17 07:00 Anion Gap 12 (8-16) 03/13/17 07:00 BUN 20 mg/dL (7-18) H 03/13/17 07:00 Creatinine 0.8 mg/dL (0.7-1.3) 03/13/17 07:00 Creat Clearance w eGFR > 60 (>60) 03/13/17 07:00 POC Glucometer 174 UNITS (()) 03/14/17 11:14 Random Glucose 178 mg/dL (74-106) H D 03/13/17 07:00 Calcium 8.5 mg/dL (8.5-10.1) 03/13/17 07:00 Total Bilirubin 0.5 mg/dL (0.2-1.0) D 03/13/17 07:00 AST 39 U/L (15-37) H D 03/13/17 07:00 ALT 38 U/L (12-78) D 03/13/17 07:00 Alkaline Phosphatase 91 U/L (45-117) 03/13/17 07:00 Total Protein 7.2 g/dl (6.4-8.2) 03/13/17 07:00 Albumin 3.3 g/dl (3.4-5.0) L 03/13/17 07:00 Urine Color Straw 03/12/17 18:56 Urine Appearance Clear 03/12/17 18:56 Urine pH 5.0 (5.0-8.0) D 03/12/17 18:56 Ur Specific [place] 1.015 (1.005-1.025) 03/12/17 18:56 Urine Protein Negative (NEGATIVE) 03/12/17 18:56 Urine Glucose (UA) Negative (NEGATIVE) 03/12/17 18:56 Urine Ketones Negative (NEGATIVE) 03/12/17 18:56 Urine Blood Negative (NEGATIVE) 03/12/17 18:56 Urine Nitrite Negative (NEGATIVE) 03/12/17 18:56 Urine Bilirubin Negative (NEGATIVE) 03/12/17 18:56 Urine Urobilinogen Negative E.U./dl (0.2-1.0) 03/12/17 18:56 Ur Leukocyte Esterase Negative (NEGATIVE) 03/12/17 18:56 RPR Titer Nonreactive (NONREACTIVE) 03/13/17 07:00 HIV 1&2 Antibody Screen Negative 03/13/17 07:00 HIV P24 Antigen Negative 03/13/17 07:00 Assessment: 03/14/17 12:08 WITHDRAWAL SX Plan: CONTINUE DETOX
[2017-03-14] MEDS: IBUPROFEN 400 MG TABLET (FP) PO PRN (15:32)
[2017-03-14] MEDS: chlordiazePOXIDE 5 MG CAPSULE PO SCH ×3 (17:34→22:18)
[2017-03-14] MEDS: THIAMINE HCL 100 MG TABLET (FP) PO SCH (22:18)
[2017-03-14] MEDS: ATORVASTATIN CA 20 MG TABLET (FP) PO SCH (22:18)
[2017-03-15] MEDS: chlordiazePOXIDE 5 MG CAPSULE PO SCH ×2 (06:08→10:19)
[2017-03-15] MEDS: GEMFIBROZIL 600 MG TABLET (FP) PO SCH ×2 (06:09→16:30)
[2017-03-15] MEDS: metFORMIN HCL 500 MG TABLET (FP) PO SCH ×2 (06:09→16:30)
[2017-03-15] MEDS: INSULIN (NOVOLOG) ASPART 100 UNITS/ML 10ML VIAL SQ SCH ×4 (07:05→22:26)
[2017-03-15] MEDS ORDERED: INSULIN (NOVOLOG) ASPART 100 UNITS/ML 10ML VIAL ONE ×2 (07:08→21:35)
[2017-03-15] MEDS: ASPIRIN COATED 81 MG TABLET.EC PO SCH (10:19)
[2017-03-15] MEDS: METOPROLOL TARTRATE 50 MG TABLET (FP) PO SCH ×2 (10:19→22:22)
[2017-03-15] MEDS: RANITIDINE HCL 150 MG TABLET (FP) PO SCH ×2 (10:19→22:23)
[2017-03-15] MEDS: amLODIPine BESYLATE 10 MG TABLET (FP) PO SCH (10:19)
[2017-03-15] MEDS: PRENATAL VITAMINS W/ FOLIC ACID TABLET (FP) PO SCH (10:19)
--- NOTE | 2017-03-15 10:33 | PN ---
BHS Progress Note (SOAP) Subjective: ANXIETY,SWEATS. Objective: 03/15/17 10:32 Vital Signs Temperature 96.4 F L 03/15/17 09:25 Pulse Rate 92 H 03/15/17 09:25 Respiratory Rate 20 03/15/17 09:25 Blood Pressure 141/82 03/15/17 09:25 O2 Sat by Pulse Oximetry (%) Laboratory Last Values WBC 5.9 K/mm3 (4.0-10.0) D 03/13/17 07:00 RBC 3.94 M/mm3 (4.00-5.60) L 03/13/17 07:00 Hgb 11.7 GM/dL (11.7-16.9) 03/13/17 07:00 Hct 35.2 % (35.4-49) L 03/13/17 07:00 MCV 89.4 fl (80-96) 03/13/17 07:00 MCHC 33.3 g/dl (32.0-35.9) 03/13/17 07:00 RDW 16.6 % (11.9-15.9) H D 03/13/17 07:00 Plt Count 341 K/MM3 (134-434) 03/13/17 07:00 MPV 7.5 fl (7.5-11.1) 03/13/17 07:00 Sodium 140 mmol/L (136-145) 03/13/17 07:00 Potassium 3.8 mmol/L (3.5-5.1) 03/13/17 07:00 Chloride 103 mmol/L (98-107) 03/13/17 07:00 Carbon Dioxide 25 mmol/L (21-32) 03/13/17 07:00 Anion Gap 12 (8-16) 03/13/17 07:00 BUN 20 mg/dL (7-18) H 03/13/17 07:00 Creatinine 0.8 mg/dL (0.7-1.3) 03/13/17 07:00 Creat Clearance w eGFR > 60 (>60) 03/13/17 07:00 POC Glucometer 163 UNITS (()) 03/15/17 06:07 Random Glucose 178 mg/dL (74-106) H D 03/13/17 07:00 Calcium 8.5 mg/dL (8.5-10.1) 03/13/17 07:00 Total Bilirubin 0.5 mg/dL (0.2-1.0) D 03/13/17 07:00 AST 39 U/L (15-37) H D 03/13/17 07:00 ALT 38 U/L (12-78) D 03/13/17 07:00 Alkaline Phosphatase 91 U/L (45-117) 03/13/17 07:00 Total Protein 7.2 g/dl (6.4-8.2) 03/13/17 07:00 Albumin 3.3 g/dl (3.4-5.0) L 03/13/17 07:00 Urine Color Straw 03/12/17 18:56 Urine Appearance Clear 03/12/17 18:56 Urine pH 5.0 (5.0-8.0) D 03/12/17 18:56 Ur Specific [place] 1.015 (1.005-1.025) 03/12/17 18:56 Urine Protein Negative (NEGATIVE) 03/12/17 18:56 Urine Glucose (UA) Negative (NEGATIVE) 03/12/17 18:56 Urine Ketones Negative (NEGATIVE) 03/12/17 18:56 Urine Blood Negative (NEGATIVE) 03/12/17 18:56 Urine Nitrite Negative (NEGATIVE) 03/12/17 18:56 Urine Bilirubin Negative (NEGATIVE) 03/12/17 18:56 Urine Urobilinogen Negative E.U./dl (0.2-1.0) 03/12/17 18:56 Ur Leukocyte Esterase Negative (NEGATIVE) 03/12/17 18:56 RPR Titer Nonreactive (NONREACTIVE) 03/13/17 07:00 HIV 1&2 Antibody Screen Negative 03/13/17 07:00 HIV P24 Antigen Negative 03/13/17 07:00 Assessment: 03/15/17 10:32 WITHDRAWAL SX Plan: CONTINUE DETOX
[2017-03-15] MEDS: chlordiazePOXIDE HCL 10 MG CAPSULE PO SCH ×2 (17:53→22:23)
[2017-03-15] MEDS: ATORVASTATIN CA 20 MG TABLET (FP) PO SCH (22:23)
[2017-03-15] MEDS: THIAMINE HCL 100 MG TABLET (FP) PO SCH (22:23)
[2017-03-15] MEDS: ZOLPIDEM TARTRATE 5 MG TABLET PO PRN (22:26)
[2017-03-16] MEDS: IBUPROFEN 400 MG TABLET (FP) PO PRN (02:20)
[2017-03-16] MEDS: chlordiazePOXIDE HCL 10 MG CAPSULE PO SCH (05:38)
[2017-03-16 06:46] VITALS: BP 152/93; PULSE 88; TEMP 97.7
[2017-03-16] MEDS: metFORMIN HCL 500 MG TABLET (FP) PO SCH (07:21)
[2017-03-16] MEDS: GEMFIBROZIL 600 MG TABLET (FP) PO SCH (07:22)
[2017-03-16] MEDS: INSULIN (NOVOLOG) ASPART 100 UNITS/ML 10ML VIAL SQ SCH (07:22)
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
== END 2017-03-16 09:25 | disposition home or self-care (01) | DRG 775 ==
LOC: YASAS 09:34 → Y3N 15:46
PROVIDERS: ADMIT Internal Medicine; ATTEND Internal Medicine
PROC: HZ2ZZZZ Detoxification Services for Substance Abuse Treatment (ICD-10-PCS; principal; 2017-03-16)
DX: F10.230 Alcohol dependence with withdrawal, uncomplicated (principal); F10.24 Alcohol dependence with alcohol-induced mood disorder; G47.00 Insomnia, unspecified; E11.9 Type 2 diabetes mellitus without complications; Z79.4 Long term (current) use of insulin; I25.2 Old myocardial infarction; I10 Essential (primary) hypertension; E78.2 Mixed hyperlipidemia; E66.01 Morbid (severe) obesity due to excess calories; Z68.32 Body mass index [BMI] 32.0-32.9, adult; R76.11 Nonspecific reaction to tuberculin skin test without active tuberculosis; F32.9 Major depressive disorder, single episode, unspecified; Z87.442 Personal history of urinary calculi; Z59.0 Homelessness
CPT/HCPCS: 36415; 71020-TC; 80053; 81003; 85027; 86593; 87389; 93005; 93010

== ENCOUNTER 2017-09-02 13:30 | Inpatient (IN) | payer OTHER ==
[2017-09-02 15:02] VITALS: BMI 33.5
--- NOTE | 2017-09-02 17:09 | HP ---
CIWA Score - CIWA Score Nausea/Vomitin Muscle Tremors: 4-Moderate,w/Arms Extend Anxiety: 4-Mod. Anxious/Guarded Agitation: 4-Moderately Restless Paroxysmal Sweats: 3 Orientation: 1-Uncertain about Date Tacttile Disturbances: 0-None Auditory Disturbances: 0-None Visual Disturbances: 0-None Headache: 0-None Present CIWA-Ar Total Score: 18 Admission ROS BHS - HPI Chief Complaint: Withdrawal sx. Allergies/Adverse Reactions: Allergies Allergy/AdvReac Type Severity Reaction Status Date / Time RASHAD Inhibitors Allergy Severe Swelling Verified 03/12/17 15:13 lisinopril Allergy Severe Swelling Verified 03/12/17 15:13 History of Present Illness: 52 y/o man with a long hx. of alcoholism is admitted for detox. Pt. has been in previous detox, denies significant sobriety. When he registered his AUTUMN was .195 now it's .250 Exam Limitations: No Limitations - Ebola screening Have you traveled outside of the country in the last 21 days: No (') Have you had contact with anyone from an Ebola affected area: No Have you been sick,other than usual withdrawal symptoms: No Do you have a fever: No - Review of Systems Constitutional: Diaphoresis EENT: reports: Nose Congestion Respiratory: reports: No Symptoms reported Cardiac: reports: No Symptoms Reported GI: reports: Nausea, Abdominal cramping : reports: Frequency Musculoskeletal: reports: No Symptoms Reported Integumentary: reports: Sweating Neuro: reports: Tremors Endocrine: reports: No Symptoms Reported Hematology: reports: No Symptoms Reported Psychiatric: reports: No Sypmtoms Reported Other Systems: Reviewed and Negative Patient History - Patient Medical History Hx Anemia: No Hx Asthma: No Hx Chronic Obstructive Pulmonary Disease (COPD): No Hx Cancer: No Hx Cardiac Disorders: No Hx Congestive Heart Failure: No Hx Hypertension: No Hx Hypercholesterolemia: Yes (gemfibrozil 600 mg po bid ) Hx Pacemaker: No HX Cerebrovascular Accident: No Hx Seizures: No Hx Dementia: No Hx Diabetes: Yes Hx Gastrointestinal Disorders: No Hx Liver Disease: No Hx Genitourinary Disorders: No Hx Sexually Transmitted Disorders: No Hx Renal Disease (ESRD): No Hx Thyroid Disease: No Hx Human Immunodeficiency Virus (HIV): No Hx Hepatitis C: No Hx Depression: No Hx Suicide Attempt: No Hx Bipolar Disorder: No Hx Schizophrenia: No - Patient Surgical History Past Surgical History: No Hx Neurologic Surgery: No Hx Cataract Extraction: No Hx Cardiac Surgery: No Hx Lung Surgery: No Hx Breast Surgery: No Hx Breast Biopsy: No Hx Abdominal Surgery: No Hx Appendectomy: No Hx Cholecystectomy: No Hx Genitourinary Surgery: Yes (left kidney stone 2015) Hx Section: No Hx Orthopedic Surgery: No Other Surgical History: left kidney stone removed 11/2015 Anesthesia Reaction: No - PPD History Previous Implant?: No Documented Results: Positive w/o proof Implanted On Prior [facility] Admission?: No Results: CX-ray 02/2017 PPD to be Administered?: No - Smoking Cessation Smoking history: Never smoked Have you smoked in the past 12 months: No If you are a former smoker, when did you quit?: STOPPED "IN MY TEENS" Cigars Per Day: 0 Hx Chewing Tobacco Use: Yes Initiated information on smoking cessation: No - Substance & Tx. History Hx Alcohol Use: Yes Substance Use Type: Alcohol Hx Substance Use Treatment: Yes (Detox at [facility] 03/13/17) - Substances Abused Alcohol Route: Oral Frequency: Daily Amount used: Vodka 1-2 pints with or without Beer 1-2(6pack) Age of first use: 18 Date of Last Use: 09/02/17 Family Disease History - Family Disease History Family Disease History: Heart Disease: Mother (HTN), Other: Father (Alcohol), Mother, Brother (Alcohol) Admission Physical Exam S - Vital Signs Vital Signs: Vital Signs - 24 hr 09/02/17 15:01 Temperature 97.4 F L Pulse Rate 102 H Respiratory 20 Rate Blood Pressure 157/101 - Physical General Appearance: Yes: Alcohol on Breath, Tremorous, Irritable, Sweating, Anxious HEENTM: Yes: Within Normal Limits Respiratory: Yes: Chest Non-Tender, Lungs Clear, Normal Breath Sounds Neck: Yes: Supple Breast: Yes: Breast Exam Deferred Cardiology: Yes: Regular Rhythm, Regular Rate, S1, S2 Genitourinary: Yes: Within Normal Limits Back: Yes: Within Normal Limits Extremities: Yes: Tremors Neurological: Yes: Fully Oriented, Alert Integumentary: Yes: Diaphoresis Lymphatic: Yes: Within Normal Limits - Diagnostic (1) Alcohol dependence with uncomplicated withdrawal Current Visit: Yes Status: Acute (2) Essential (primary) hypertension Current Visit: Yes Status: Chronic Comment: 169/99 atenolon 100 mg + amlodipine 10 mg now (3) History of positive PPD Current Visit: No Status: Chronic (4) Hyperlipemia Current Visit: Yes Status: Chronic Qualifiers: Hyperlipidemia type: mixed hyperlipidemia Qualified Code(s): E78.2 - Mixed hyperlipidemia (5) Type 2 diabetes mellitus Current Visit: Yes Status: Chronic Qualifiers: Diabetes mellitus complication detail: without coma Diabetes mellitus half-way insulin use: without terminologist use Cleared for Admission [facility] - Detox or Rehab [facility] Level of Care: Medically Managed Detox Regimen/Protocol: Librium [facility] Breath Alcohol Content Breath Alcohol Content: 0.195 Urine Drug Screen - Results Drug Screen Negative: No Urine Drug Screen Results: BZO-Benzodiazepines
[2017-09-02] MEDS ORDERED: chlordiazePOXIDE HCL 25 MG CAPSULE PO PRN (17:19)
[2017-09-02] MEDS ORDERED: MAG HYDROX/AL HYDROX/SIMETH 30 ML UNIT-DOSE CUP PO PRN (17:19)
[2017-09-02] MEDS ORDERED: MENTHOL/PHENOL 1 EACH UD MM PRN (17:19)
[2017-09-02] MEDS ORDERED: guaiFENesin/D-METHORPHAN HB 10 ML UNIT-DOSE CUPS PO PRN (17:19)
[2017-09-02] MEDS ORDERED: ACETAMINOPHEN 325 MG TABLET (FP) PO PRN (17:19)
[2017-09-02] MEDS ORDERED: IBUPROFEN 400 MG TABLET (FP) PO PRN (17:19)
[2017-09-02] MEDS ORDERED: chlordiazePOXIDE HCL 25 MG CAPSULE PO ONE (17:19)
[2017-09-02] MEDS ORDERED: LOPERAMIDE HCL 2 MG CAPSULE PO PRN (17:19)
[2017-09-02] MEDS ORDERED: MAGNESIUM HYDROX 2400MG/30ML ORAL SUSPENSION 30 ML CUP PO PRN (17:19)
[2017-09-02] MEDS ORDERED: P-EPHED 60MG/TRIPROLIDI 2.5MG TABLET PO PRN (17:19)
[2017-09-02] MEDS ORDERED: MAGNESIUM CITRATE 300 ML BOTTLE PO PRN (17:19)
[2017-09-02] MEDS: amLODIPine BESYLATE 10 MG TABLET (FP) PO SCH (19:00)
[2017-09-02] MEDS: METOPROLOL TARTRATE 50 MG TABLET (FP) PO SCH ×2 (19:01→22:12)
[2017-09-02] MEDS: chlordiazePOXIDE HCL 25 MG CAPSULE PO SCH (22:11)
[2017-09-02] MEDS: GEMFIBROZIL 600 MG TABLET (FP) PO SCH (22:12)
[2017-09-02] MEDS: THIAMINE HCL 100 MG TABLET (FP) PO SCH (22:12)
[2017-09-03 01:40] LABS: URINE APPEARANCE CLEAR; URINE BILIRUBIN NEGATIVE (NEGATIVE); URINE BLOOD 1+ (NEGATIVE); URINE COLOR STRAW; URINE GLUCOSE (UA) NEGATIVE (NEGATIVE); URINE KETONE NEGATIVE (NEGATIVE); URINE NITRITE NEGATIVE (NEGATIVE); URINE UROBILINOGEN NEGATIVE mg/dL (0.2-1.0)
[2017-09-03 01:45] LABS: URINE PROTEIN 2+ (NEGATIVE)
[2017-09-03 01:52] LABS: URINE BACTERIA MANY /hpf (NONE SEEN); URINE RBC 0; URINE WBC < 1
[2017-09-03] MEDS: chlordiazePOXIDE HCL 25 MG CAPSULE PO SCH ×4 (05:41→22:13)
[2017-09-03] MEDS: INSULIN (NOVOLOG) ASPART 100 UNITS/ML 10ML VIAL SQ SCH ×2 (08:00→17:05)
--- NOTE | 2017-09-03 09:42 | EKG ---
Test Reason : Blood Pressure : / mmHG Vent. Rate : 102 BPM Atrial Rate : 102 BPM P-R Int : 170 ms QRS Dur : 084 ms QT Int : 344 ms P-R-T Axes : 049 040 160 degrees QTc Int : 448 ms SINUS TACHYCARDIA MODERATE VOLTAGE CRITERIA FOR LVH, MAY BE NORMAL VARIANT T WAVE ABNORMALITY, CONSIDER INFEROLATERAL ISCHEMIA ABNORMAL ECG WHEN COMPARED WITH ECG OF 12-MAR-2017 15:58, INVERTED T WAVES HAVE REPLACED NONSPECIFIC T WAVE ABNORMALITY IN ANTERIOR LEADS Confirmed by JAMES BISHOP, JUANA ([id number]) on 09/03/2017 9:42:28 AM Referred By: Confirmed By:JUANA RAMIREZ MD
[2017-09-03] MEDS ORDERED: PATIENT'S OWN MEDICATION (NON-FORMULARY) (Metformin Hcl [Metformin Hcl Er] 500 MG) PO SCH (10:00)
[2017-09-03 10:12] LABS: MCH 28.2 pg (25.7-33.7); MCHC 32.8 g/dl (32.0-35.9); MEAN PLT VOLUME 6.9 fl (7.5-11.1); PLATELET COUNT 252 K/MM3 (134-434); RDW 15.4 % (11.9-15.9); WHITE BLOOD COUNT 5.3 K/mm3 (4.0-10.0)
[2017-09-03] MEDS: METOPROLOL TARTRATE 50 MG TABLET (FP) PO SCH ×2 (10:19→22:13)
[2017-09-03] MEDS: PRENATAL VITAMINS W/ FOLIC ACID TABLET (FP) PO SCH (10:19)
[2017-09-03] MEDS: ASPIRIN 81 MG CHEWABLE TABLETS PO SCH (10:19)
[2017-09-03] MEDS: amLODIPine BESYLATE 10 MG TABLET (FP) PO SCH (10:20)
--- NOTE | 2017-09-03 10:20 | PN ---
S CIWA - CIWA Score Nausea/Vomitin Muscle Tremors: 3 Anxiety: 3 Agitation: 2 Paroxysmal Sweats: 1-Minimal Palms Moist Orientation: 0-Oriented Tacttile Disturbances: 1-Very Mild Itch/Numbness Auditory Disturbances: 1-Very Mild Visual Disturbances: 0-None Headache: 2-Mild CIWA-Ar Total Score: 16 BHS Progress Note (SOAP) Subjective: alert,irritable,anxious,interrupted sleep,tremor Objective: 09/03/17 10:17 Vital Signs Temperature 98.1 F 09/03/17 06:05 Pulse Rate 81 09/03/17 06:05 Respiratory Rate 18 09/03/17 06:05 Blood Pressure 135/87 09/03/17 06:05 O2 Sat by Pulse Oximetry (%) ekg sinus tachycardia 102/min,invertet t in 2,3,avf and v3 to v6 no chest pain,no sob,no dizziness Laboratory Last Values WBC 5.3 K/mm3 (4.0-10.0) 09/03/17 07:00 RBC 4.89 M/mm3 (4.00-5.60) D 09/03/17 07:00 Hgb 13.8 GM/dL (11.7-16.9) D 09/03/17 07:00 Hct 42.0 % (35.4-49) D 09/03/17 07:00 MCV 86.0 fl (80-96) 09/03/17 07:00 MCH 28.2 pg (25.7-33.7) 09/03/17 07:00 MCHC 32.8 g/dl (32.0-35.9) 09/03/17 07:00 RDW 15.4 % (11.9-15.9) 09/03/17 07:00 Plt Count 252 K/MM3 (134-434) D 09/03/17 07:00 MPV 6.9 fl (7.5-11.1) L 09/03/17 07:00 POC Glucometer 133 UNITS (80-120) 09/03/17 05:43 Urine Color Straw 09/02/17 18:26 Urine Appearance Clear 09/02/17 18:26 Urine pH 6.0 (5.0-8.0) 09/02/17 18:26 Ur Specific [place] 1.005 (1.001-1.035) 09/02/17 18:26 Urine Protein 2+ (NEGATIVE) H 09/02/17 18:26 Urine Glucose (UA) Negative (NEGATIVE) 09/02/17 18:26 Urine Ketones Negative (NEGATIVE) 09/02/17 18:26 Urine Blood 1+ (NEGATIVE) H 09/02/17 18:26 Urine Nitrite Negative (NEGATIVE) 09/02/17 18:26 Urine Bilirubin Negative (NEGATIVE) 09/02/17 18:26 Urine Urobilinogen Negative mg/dL (0.2-1.0) 09/02/17 18:26 Urine WBC (Auto) < 1 09/02/17 18:26 Urine RBC (Auto) 0 09/02/17 18:26 Urine Bacteria Many /hpf (NONE SEEN) 09/02/17 18:26 labs pending Assessment: 09/03/17 10:19 withdrawal symptom Plan: continue detox
[2017-09-03] MEDS: GEMFIBROZIL 600 MG TABLET (FP) PO SCH ×2 (10:32→17:39)
[2017-09-03 10:44] LABS: ALBUMIN 3.6 g/dl (3.4-5.0); ALK PHOS 96 U/L (45-117); ANION GAP 12 (8-16); BILIRUBIN,TOTAL 0.7 mg/dL (0.2-1.0); CALCIUM 8.1 mg/dL (8.5-10.1); CO2 25 mmol/L (21-32); CREATININE 0.9 mg/dL (0.7-1.3); GLUCOSE,RANDOM 133 mg/dL (74-106); SGOT/AST 145 U/L (15-37); SGPT/ALT 75 U/L (12-78); TOT PROT 7.6 g/dl (6.4-8.2)
[2017-09-03 11:46] LABS: URINE LEUK ESTERASE Negative (NEGATIVE)
[2017-09-03] MEDS: THIAMINE HCL 100 MG TABLET (FP) PO SCH (22:13)
[2017-09-04] MEDS: chlordiazePOXIDE HCL 25 MG CAPSULE PO SCH ×3 (05:50→17:10)
[2017-09-04] MEDS: GEMFIBROZIL 600 MG TABLET (FP) PO SCH ×2 (07:20→17:11)
[2017-09-04] MEDS ORDERED: INSULIN (NOVOLOG) ASPART 100 UNITS/ML 10ML VIAL ONE (07:23)
[2017-09-04] MEDS: INSULIN (NOVOLOG) ASPART 100 UNITS/ML 10ML VIAL SQ SCH ×2 (07:27→17:12)
--- NOTE | 2017-09-04 09:08 | PN ---
S CIWA - CIWA Score Nausea/Vomitin Muscle Tremors: 3 Anxiety: 3 Agitation: 2 Paroxysmal Sweats: 1-Minimal Palms Moist Orientation: 0-Oriented Tacttile Disturbances: 1-Very Mild Itch/Numbness Auditory Disturbances: 1-Very Mild Visual Disturbances: 0-None Headache: 2-Mild CIWA-Ar Total Score: 16 BHS Progress Note (SOAP) Subjective: alert,irritable,anxious,interrupted sleep,tremor,pain in the body Objective: 09/04/17 09:06 Vital Signs Temperature 97.8 F 09/04/17 06:27 Pulse Rate 75 09/04/17 06:27 Respiratory Rate 18 09/04/17 06:27 Blood Pressure 125/78 09/04/17 06:27 O2 Sat by Pulse Oximetry (%) Laboratory Last Values WBC 5.3 K/mm3 (4.0-10.0) 09/03/17 07:00 RBC 4.89 M/mm3 (4.00-5.60) D 09/03/17 07:00 Hgb 13.8 GM/dL (11.7-16.9) D 09/03/17 07:00 Hct 42.0 % (35.4-49) D 09/03/17 07:00 MCV 86.0 fl (80-96) 09/03/17 07:00 MCH 28.2 pg (25.7-33.7) 09/03/17 07:00 MCHC 32.8 g/dl (32.0-35.9) 09/03/17 07:00 RDW 15.4 % (11.9-15.9) 09/03/17 07:00 Plt Count 252 K/MM3 (134-434) D 09/03/17 07:00 MPV 6.9 fl (7.5-11.1) L 09/03/17 07:00 Sodium 136 mmol/L (136-145) 09/03/17 07:00 Potassium 3.2 mmol/L (3.5-5.1) L 09/03/17 07:00 Chloride 99 mmol/L (98-107) 09/03/17 07:00 Carbon Dioxide 25 mmol/L (21-32) 09/03/17 07:00 Anion Gap 12 (8-16) 09/03/17 07:00 BUN 10 mg/dL (7-18) D 09/03/17 07:00 Creatinine 0.9 mg/dL (0.7-1.3) 09/03/17 07:00 Creat Clearance w eGFR > 60 (>60) 09/03/17 07:00 POC Glucometer 123 UNITS (80-120) 09/03/17 16:19 Random Glucose 133 mg/dL (74-106) H D 09/03/17 07:00 Calcium 8.1 mg/dL (8.5-10.1) L 09/03/17 07:00 Total Bilirubin 0.7 mg/dL (0.2-1.0) D 09/03/17 07:00 AST 145 U/L (15-37) H D 09/03/17 07:00 ALT 75 U/L (12-78) D 09/03/17 07:00 Alkaline Phosphatase 96 U/L (45-117) 09/03/17 07:00 Total Protein 7.6 g/dl (6.4-8.2) 09/03/17 07:00 Albumin 3.6 g/dl (3.4-5.0) 09/03/17 07:00 Urine Color Straw 09/02/17 18:26 Urine Appearance Clear 09/02/17 18:26 Urine pH 6.0 (5.0-8.0) 09/02/17 18:26 Ur Specific [place] 1.005 (1.001-1.035) 09/02/17 18:26 Urine Protein 2+ (NEGATIVE) H 09/02/17 18:26 Urine Glucose (UA) Negative (NEGATIVE) 09/02/17 18:26 Urine Ketones Negative (NEGATIVE) 09/02/17 18:26 Urine Blood 1+ (NEGATIVE) H 09/02/17 18:26 Urine Nitrite Negative (NEGATIVE) 09/02/17 18:26 Urine Bilirubin Negative (NEGATIVE) 09/02/17 18:26 Urine Urobilinogen Negative mg/dL (0.2-1.0) 09/02/17 18:26 Ur Leukocyte Esterase Negative (NEGATIVE) 09/02/17 18:26 Urine WBC (Auto) < 1 09/02/17 18:26 Urine RBC (Auto) 0 09/02/17 18:26 Urine Bacteria Many /hpf (NONE SEEN) 09/02/17 18:26 RPR Titer Nonreactive (NONREACTIVE) 09/03/17 07:00 Assessment: 09/04/17 09:07 withdrawal symptom Plan: continue detox,bgm monitoring
[2017-09-04] MEDS: METOPROLOL TARTRATE 50 MG TABLET (FP) PO SCH ×2 (10:28→22:06)
[2017-09-04] MEDS: amLODIPine BESYLATE 10 MG TABLET (FP) PO SCH (10:28)
[2017-09-04] MEDS: ASPIRIN 81 MG CHEWABLE TABLETS PO SCH (10:28)
[2017-09-04] MEDS: PRENATAL VITAMINS W/ FOLIC ACID TABLET (FP) PO SCH (10:28)
[2017-09-04] MEDS: chlordiazePOXIDE 5 MG CAPSULE PO SCH (22:05)
[2017-09-04] MEDS: THIAMINE HCL 100 MG TABLET (FP) PO SCH (22:06)
[2017-09-05] MEDS: chlordiazePOXIDE 5 MG CAPSULE PO SCH ×3 (05:24→18:50)
[2017-09-05] MEDS: GEMFIBROZIL 600 MG TABLET (FP) PO SCH ×2 (06:53→18:51)
[2017-09-05] MEDS ORDERED: INSULIN (NOVOLOG) ASPART 100 UNITS/ML 10ML VIAL ONE (06:55)
[2017-09-05] MEDS: INSULIN (NOVOLOG) ASPART 100 UNITS/ML 10ML VIAL SQ SCH ×2 (06:56→18:00)
--- NOTE | 2017-09-05 10:24 | PN ---
BHS Progress Note (SOAP) Subjective: alert,irritable,anxious,interrupted sleep,aching pain Objective: 09/05/17 10:22 Vital Signs Temperature 98.1 F 09/05/17 10:09 Pulse Rate 99 H 09/05/17 10:09 Respiratory Rate 18 09/05/17 10:09 Blood Pressure 138/92 09/05/17 10:09 O2 Sat by Pulse Oximetry (%) Assessment: 09/05/17 10:22 withdrawal symptom,bgm is 172 Plan: continue detox,bgm monitoring
[2017-09-05] MEDS: amLODIPine BESYLATE 10 MG TABLET (FP) PO SCH (10:44)
[2017-09-05] MEDS: PRENATAL VITAMINS W/ FOLIC ACID TABLET (FP) PO SCH (10:44)
[2017-09-05] MEDS: METOPROLOL TARTRATE 50 MG TABLET (FP) PO SCH ×2 (10:44→22:37)
[2017-09-05] MEDS: ASPIRIN 81 MG CHEWABLE TABLETS PO SCH (10:44)
[2017-09-05] MEDS: THIAMINE HCL 100 MG TABLET (FP) PO SCH (22:37)
[2017-09-05] MEDS: chlordiazePOXIDE HCL 10 MG CAPSULE PO SCH (22:37)
[2017-09-06] MEDS: chlordiazePOXIDE HCL 10 MG CAPSULE PO SCH ×3 (05:55→17:35)
[2017-09-06] MEDS: GEMFIBROZIL 600 MG TABLET (FP) PO SCH ×2 (07:58→17:35)
[2017-09-06] MEDS: INSULIN (NOVOLOG) ASPART 100 UNITS/ML 10ML VIAL SQ SCH ×2 (08:00→17:36)
[2017-09-06] MEDS: METOPROLOL TARTRATE 50 MG TABLET (FP) PO SCH ×2 (10:44→22:27)
[2017-09-06] MEDS: amLODIPine BESYLATE 10 MG TABLET (FP) PO SCH (10:44)
[2017-09-06] MEDS: PRENATAL VITAMINS W/ FOLIC ACID TABLET (FP) PO SCH (10:44)
[2017-09-06] MEDS: ASPIRIN 81 MG CHEWABLE TABLETS PO SCH (10:44)
--- NOTE | 2017-09-06 11:38 | PN ---
BHS Progress Note (SOAP) Subjective: irritable sweats Objective: 09/06/17 11:38 Vital Signs Temperature 97.9 F 09/06/17 09:47 Pulse Rate 90 09/06/17 09:47 Respiratory Rate 19 09/06/17 09:47 Blood Pressure 142/90 09/06/17 09:47 O2 Sat by Pulse Oximetry (%) aaox3 ambulating no acute distress Assessment: 09/06/17 11:38 mild withdrawal sx Plan: continue detox increase fluids d/c in am
[2017-09-06] MEDS: THIAMINE HCL 100 MG TABLET (FP) PO SCH (22:27)
[2017-09-07 06:15] VITALS: BP 140/85; PULSE 82; TEMP 97.7
[2017-09-07] MEDS: INSULIN (NOVOLOG) ASPART 100 UNITS/ML 10ML VIAL SQ SCH (06:41)
[2017-09-07] MEDS: GEMFIBROZIL 600 MG TABLET (FP) PO SCH (06:41)
--- NOTE | 2017-09-07 07:45 | DS ---
[facility] Detox Discharge Summary Admission Date: 09/02/17 Discharge Date: 09/07/17 - History Present History: Alcohol Dependence Additional Comments: follow up with after care program as arrangement Pertinent Past History: essential hypertension hyperlipodemia history of coronary artery disease history of positive ppd - Physical Exam Results Vital Signs: Vital Signs Temperature 97.7 F 09/07/17 06:14 Pulse Rate 82 09/07/17 06:14 Respiratory Rate 18 09/07/17 06:14 Blood Pressure 140/85 09/07/17 06:14 O2 Sat by Pulse Oximetry (%) Pertinent Admission Physical Exam Findings: withdrawal symptom - Treatment Hospital Course: Detox Protocol Followed, Detoxed Safely, Responded well, Discharged Condition Good Patient has Accepted a Rehab Referral to: declined - Medication Discharge Medications: Ambulatory Orders Aspirin [ASA -] 81 mg PO DAILY 11/20/14 Thiamine HCl [Vitamin B-1] 100 mg PO DAILY 02/11/16 Amlodipine Besylate [Norvasc -] 10 mg PO DAILY #0 tablet 02/15/16 Atenolol [Tenormin -] 100 mg PO DAILY #0 tablet 02/15/16 Gemfibrozil [Lopid -] 600 mg PO BID #0 tablet 02/15/16 Multivitamins [Tab-A-Vit -] 1 tab PO DAILY 12/21/16 Metformin HCl [Metformin HCl ER] 500 mg PO DAILY 03/12/17 - Diagnosis (1) Alcohol dependence with uncomplicated withdrawal Status: Acute (2) Essential (primary) hypertension Status: Chronic (3) Hyperlipemia Status: Chronic Qualifiers: Hyperlipidemia type: mixed hyperlipidemia Qualified Code(s): E78.2 - Mixed hyperlipidemia (4) Type 2 diabetes mellitus Status: Chronic Qualifiers: Diabetes mellitus complication detail: without coma Diabetes mellitus halfway insulin use: without halfway use (5) History of positive PPD Status: Chronic (6) Hx of coronary artery disease Status: Chronic - AMA Did Patient Leave Against Medical Advice: No
== END 2017-09-07 06:39 | disposition home or self-care (01) | DRG 775 ==
LOC: YASAS 13:30 → Y6N 18:01
PROVIDERS: ADMIT Internal Medicine; ATTEND Internal Medicine
PROC: HZ2ZZZZ Detoxification Services for Substance Abuse Treatment (ICD-10-PCS; principal; 2017-09-02)
DX: F10.230 Alcohol dependence with withdrawal, uncomplicated (principal); I10 Essential (primary) hypertension; E11.9 Type 2 diabetes mellitus without complications; E78.2 Mixed hyperlipidemia; R00.0 Tachycardia, unspecified; R76.11 Nonspecific reaction to tuberculin skin test without active tuberculosis; I25.10 Atherosclerotic heart disease of native coronary artery without angina pectoris; Z88.8 Allergy status to other drugs, medicaments and biological substances; Z87.442 Personal history of urinary calculi; Z79.84 Long term (current) use of oral hypoglycemic drugs; Z59.0 Homelessness
CPT/HCPCS: 36415; 80053; 81003; 81015; 85027; 86593; 93005; 93010

== ENCOUNTER 2017-11-17 08:24 | Inpatient (IN) | payer OTHER ==
[2017-11-17 10:25] VITALS: BMI 34.4
--- NOTE | 2017-11-17 12:22 | HP ---
CIWA Score - CIWA Score Nausea/Vomitin-Mild Nausea/No Vomiting Muscle Tremors: 4-Moderate,w/Arms Extend Anxiety: 4-Mod. Anxious/Guarded Agitation: 1-Slight > Activity Paroxysmal Sweats: 1-Minimal Palms Moist Orientation: 3-Disoriented Date>2 days Tacttile Disturbances: 1-Very Mild Itch/Numbness Auditory Disturbances: 1-Very Mild Visual Disturbances: 1-Very Mild Sensitivity Headache: 1-Very Mild CIWA-Ar Total Score: 18 Admission ROS BHS - HPI Chief Complaint: I'm going to if I keep drinking like this Allergies/Adverse Reactions: Allergies Allergy/AdvReac Type Severity Reaction Status Date / Time RASHAD Inhibitors Allergy Severe Swelling Verified 11/17/17 10:45 lisinopril Allergy Severe Swelling Verified 11/17/17 10:45 History of Present Illness: 52 yo gentleman here for detox from alcohol - states he has black outs, no seizures, this is one of multiple detox admissions - also history of rehab. States last detox about two weeks ago - at [facility] but cannot remember well right now. Exam Limitations: Clinical Condition - Ebola screening Have you traveled outside of the country in the last 21 days: No (N) Have you had contact with anyone from an Ebola affected area: No Have you been sick,other than usual withdrawal symptoms: No Do you have a fever: No - Review of Systems Constitutional: Malaise, Changes in sleep EENT: reports: Blurred Vision Respiratory: reports: No Symptoms reported Cardiac: reports: No Symptoms Reported GI: reports: Indigestion : reports: Frequency Integumentary: reports: Dryness Neuro: reports: Headache Endocrine: reports: No Symptoms Reported Hematology: reports: No Symptoms Reported Psychiatric: reports: Judgement Intact, Mood/Affect Appropiate, Anxious Other Systems: Reviewed and Negative Patient History - Patient Medical History Hx Anemia: No Hx Asthma: No Hx Chronic Obstructive Pulmonary Disease (COPD): No Hx Cancer: No Hx Cardiac Disorders: No Hx Congestive Heart Failure: No Hx Hypertension: Yes Hx Hypercholesterolemia: Yes (gemfibrozil 600 mg po bid ) Hx Pacemaker: No HX Cerebrovascular Accident: No Hx Seizures: Yes (possible 'that's what they said') Hx Dementia: No Hx Diabetes: Yes (bgm-133) Hx Gastrointestinal Disorders: No Hx Liver Disease: No Hx Genitourinary Disorders: No Hx Sexually Transmitted Disorders: No Hx Renal Disease (ESRD): Yes (history renal stone 2016 removed) Hx Thyroid Disease: No Hx Human Immunodeficiency Virus (HIV): No Hx Hepatitis C: No Hx Depression: No (denies current problem) Hx Suicide Attempt: No Hx Bipolar Disorder: No Hx Schizophrenia: No - Patient Surgical History Past Surgical History: No Hx Neurologic Surgery: No Hx Cataract Extraction: No Hx Cardiac Surgery: No Hx Lung Surgery: No Hx Breast Surgery: No Hx Breast Biopsy: No Hx Abdominal Surgery: No Hx Appendectomy: No Hx Cholecystectomy: No Hx Genitourinary Surgery: Yes (left kidney stone 2016) Hx Section: No Hx Orthopedic Surgery: No Anesthesia Reaction: No - PPD History Previous Implant?: Yes Documented Results: Positive w/proof (took INH for six months in 1989) Results: CX-ray 02/2017 PPD to be Administered?: No - Reproductive History Patient is a Female of Child Bearing Age (11 -55 yrs old): No (male) - Smoking Cessation Smoking history: Current every day smoker (snuff 1/3 can daily) Have you smoked in the past 12 months: Yes Aproximately how many cigarettes per day: 1 (1/3 can snuff) Cigars Per Day: 0 Hx Chewing Tobacco Use: Yes Initiated information on smoking cessation: Yes 'Breaking Loose' booklet given: 11/17/17 (give on floor) - Substance & Tx. History Hx Alcohol Use: Yes Substance Use Type: Alcohol Hx Substance Use Treatment: Yes (detox) - Substances Abused Alcohol Route: Oral Frequency: Daily Amount used: beer(4-5 QUARTS)/VODKA(2 PINTS) Age of first use: 19 Date of Last Use: 11/17/17 Family Disease History - Family Disease History Family Disease History: Heart Disease: Mother (HTN), Other: Father (Alcohol), Mother, Brother (Alcohol) Admission Physical Exam BHS - Vital Signs Vital Signs: Vital Signs - 24 hr 11/17/17 10:22 Temperature 97.5 F L Pulse Rate 118 H Respiratory 18 Rate Blood Pressure 144/93 - Physical General Appearance: Yes: Nourished, Appropriately Dressed, Moderate Distress, Alcohol on Breath, Anxious HEENTM: Yes: Hearing grossly Normal, Normocephalic, Normal Voice, Pharynx Normal , Other (poor dentition) Respiratory: Yes: Normal Breath Sounds, No Respiratory Distress, Rhonchi Neck: Yes: No masses,lesions,Nodules, Supple Breast: Yes: Breast Exam Deferred Cardiology: Yes: Regular Rhythm, Regular Rate Abdominal: Yes: Soft, Protuberent Genitourinary: Yes: Frequency Musculoskeletal: Yes: full range of Motion, Gait Steady Extremities: Yes: Normal Inspection, Normal Range of Motion, Non-Tender Neurological: Yes: Alert, Normal Mood/Affect, Normal Response Integumentary: Yes: Normal Color, Warm Lymphatic: Yes: Within Normal Limits - Diagnostic (1) Alcohol dependence with uncomplicated withdrawal Current Visit: Yes Status: Acute (2) Essential (primary) hypertension Current Visit: Yes Status: Chronic Comment: atenolon 100 mg + amlodipine 10 mg now (3) Hx of coronary artery disease Current Visit: Yes Status: Chronic (4) Hyperlipemia Current Visit: Yes Status: Chronic Qualifiers: Hyperlipidemia type: unspecified Qualified Code(s): E78.5 - Hyperlipidemia , unspecified (5) Diabetes mellitus treated with oral medication Current Visit: Yes Status: Chronic (6) PPD positive, treated Current Visit: Yes Status: Chronic Comment: cxr 02/2017 normal Cleared for Admission [facility] - Detox or Rehab [facility] Level of Care: Medically Managed Detox Regimen/Protocol: Librium [facility] Breath Alcohol Content Breath Alcohol Content: 0.274 Urine Drug Screen - Results Drug Screen Negative: No Urine Drug Screen Results: BZO-Benzodiazepines
[2017-11-17] MEDS ORDERED: NICOTINE POLACRILEX 2 MG GUM BUC PRN (12:42)
[2017-11-17] MEDS ORDERED: IBUPROFEN 400 MG TABLET (FP) PO PRN (12:42)
[2017-11-17] MEDS ORDERED: guaiFENesin/D-METHORPHAN HB 10 ML UNIT-DOSE CUPS PO PRN (12:42)
[2017-11-17] MEDS ORDERED: MAG HYDROX/AL HYDROX/SIMETH 30 ML UNIT-DOSE CUP PO PRN (12:42)
[2017-11-17] MEDS ORDERED: chlordiazePOXIDE HCL 25 MG CAPSULE PO PRN (12:42)
[2017-11-17] MEDS ORDERED: chlordiazePOXIDE HCL 25 MG CAPSULE PO ONE (12:42)
[2017-11-17] MEDS ORDERED: P-EPHED 60MG/TRIPROLIDI 2.5MG TABLET PO PRN (12:42)
[2017-11-17] MEDS ORDERED: ACETAMINOPHEN 325 MG TABLET (FP) PO PRN (12:42)
[2017-11-17] MEDS ORDERED: hydrOXYzine PAMOATE 25 MG CAPSULE (FP) PO PRN (12:42)
[2017-11-17] MEDS ORDERED: LOPERAMIDE HCL 2 MG CAPSULE PO PRN (12:42)
[2017-11-17] MEDS ORDERED: MAGNESIUM HYDROX 2400MG/30ML ORAL SUSPENSION 30 ML CUP PO PRN (12:42)
[2017-11-17] MEDS ORDERED: MENTHOL/PHENOL 1 EACH UD MM PRN (12:42)
[2017-11-17] MEDS ORDERED: MAGNESIUM CITRATE 300 ML BOTTLE PO PRN (12:42)
[2017-11-17] MEDS: chlordiazePOXIDE HCL 25 MG CAPSULE PO SCH ×2 (17:13→22:18)
[2017-11-17 18:27] LABS: URINE APPEARANCE SLCLOUDY; URINE BILIRUBIN NEGATIVE (NEGATIVE); URINE BLOOD 1+ (NEGATIVE); URINE COLOR YELLOW; URINE GLUCOSE (UA) NEGATIVE (NEGATIVE); URINE KETONE NEGATIVE (NEGATIVE); URINE LEUK ESTERASE TRACE (NEGATIVE); URINE NITRITE NEGATIVE (NEGATIVE); URINE UROBILINOGEN NEGATIVE mg/dL (0.2-1.0)
[2017-11-17 18:46] LABS: URINE PROTEIN 2+ (NEGATIVE)
[2017-11-17 18:49] LABS: EPI CELLS RARE /HPF (FEW); URINE BACTERIA RARE /hpf (NONE SEEN); URINE MUCUS RARE
[2017-11-17] MEDS: THIAMINE HCL 100 MG TABLET (FP) PO SCH (22:18)
[2017-11-17] MEDS: GEMFIBROZIL 600 MG TABLET (FP) PO SCH (23:59)
[2017-11-18] MEDS: chlordiazePOXIDE HCL 25 MG CAPSULE PO SCH ×4 (05:20→22:22)
[2017-11-18] MEDS: metFORMIN HCL 500 MG TABLET (FP) PO SCH (06:25)
[2017-11-18 10:12] LABS: HEMATOCRIT 41.1 % (35.4-49); HEMOGLOBIN 14.4 GM/dL (11.7-16.9); MCH 29.8 pg (25.7-33.7); MCHC 35.1 g/dl (32.0-35.9); MEAN CELL VOLUME 84.8 fl (80-96); MEAN PLT VOLUME 7.3 fl (7.5-11.1); PLATELET COUNT 292 K/MM3 (134-434); RBC 4.85 M/mm3 (4.00-5.60); WHITE BLOOD COUNT 4.8 K/mm3 (4.0-10.0)
[2017-11-18] MEDS: ATENOLOL 50 MG TABLET (FP) PO SCH (10:13)
[2017-11-18] MEDS: PRENATAL VITAMINS W/ FOLIC ACID TABLET (FP) PO SCH (10:13)
[2017-11-18] MEDS: GEMFIBROZIL 600 MG TABLET (FP) PO SCH ×2 (10:13→22:22)
[2017-11-18] MEDS: amLODIPine BESYLATE 10 MG TABLET (FP) PO SCH (10:13)
[2017-11-18 10:16] LABS: ALBUMIN 3.6 g/dl (3.4-5.0); ANION GAP 9 (8-16); BILIRUBIN,TOTAL 0.9 mg/dL (0.2-1.0); CALCIUM 7.4 mg/dL (8.5-10.1); CHLORIDE 96 mmol/L (98-107); CO2 25 mmol/L (21-32); CREATININE 0.6 mg/dL (0.7-1.3); GLUCOSE,RANDOM 189 mg/dL (74-106); SODIUM 130 mmol/L (136-145)
[2017-11-18 10:17] LABS: ALK PHOS 110 U/L (45-117)
[2017-11-18 11:03] LABS: POTASSIUM 3.6 mmol/L (3.5-5.1)
[2017-11-18 11:22] LABS: TOT PROT 7.8 g/dl (6.4-8.2)
[2017-11-18 11:38] LABS: BLOOD UREA NITROGEN 14 mg/dL (7-18)
--- NOTE | 2017-11-18 13:15 | EKG ---
Test Reason : Blood Pressure : / mmHG Vent. Rate : 114 BPM Atrial Rate : 114 BPM P-R Int : 156 ms QRS Dur : 082 ms QT Int : 372 ms P-R-T Axes : 057 029 088 degrees QTc Int : 512 ms SINUS TACHYCARDIA NONSPECIFIC T WAVE ABNORMALITY ABNORMAL ECG WHEN COMPARED WITH ECG OF 02-SEP-2017 19:07, NON-SPECIFIC CHANGE IN ST SEGMENT IN ANTERIOR LEADS T WAVE INVERSION NO LONGER EVIDENT IN INFERIOR LEADS NONSPECIFIC T WAVE ABNORMALITY HAS REPLACED INVERTED T WAVES IN ANTERIOR LEADS CLINICAL CORRELATION IS RECOMMENDED BASELINE ARTIFACT Confirmed by TIM BISHOP, THOR ([id number]) on 11/18/2017 1:14:50 PM Referred By: Confirmed By:THOR DUMONT MD
--- NOTE | 2017-11-18 14:10 | PN ---
S CIWA - CIWA Score Nausea/Vomitin-Mild Nausea/No Vomiting Muscle Tremors: 3 Anxiety: 3 Agitation: 3 Paroxysmal Sweats: 1-Minimal Palms Moist Orientation: 0-Oriented Tacttile Disturbances: 1-Very Mild Itch/Numbness Auditory Disturbances: 0-None Visual Disturbances: 0-None Headache: 2-Mild CIWA-Ar Total Score: 14 BHS Progress Note (SOAP) Subjective: sweat tremor restlessness anxiety "feel better" Objective: 11/18/17 14:11 Vital Signs Temperature 98.6 F 11/18/17 10:12 Pulse Rate 115 H 11/18/17 10:12 Respiratory Rate 18 11/18/17 10:12 Blood Pressure 136/106 11/18/17 10:12 O2 Sat by Pulse Oximetry (%) Laboratory Last Values WBC 4.8 K/mm3 (4.0-10.0) 11/18/17 07:40 RBC 4.85 M/mm3 (4.00-5.60) 11/18/17 07:40 Hgb 14.4 GM/dL (11.7-16.9) 11/18/17 07:40 Hct 41.1 % (35.4-49) 11/18/17 07:40 MCV 84.8 fl (80-96) 11/18/17 07:40 MCH 29.8 pg (25.7-33.7) 11/18/17 07:40 MCHC 35.1 g/dl (32.0-35.9) 11/18/17 07:40 RDW 14.0 % (11.9-15.9) 11/18/17 07:40 Plt Count 292 K/MM3 (134-434) 11/18/17 07:40 MPV 7.3 fl (7.5-11.1) L 11/18/17 07:40 Sodium 130 mmol/L (136-145) L 11/18/17 07:40 Potassium 3.6 mmol/L (3.5-5.1) 11/18/17 07:40 Chloride 96 mmol/L (98-107) L 11/18/17 07:40 Carbon Dioxide 25 mmol/L (21-32) 11/18/17 07:40 Anion Gap 9 (8-16) 11/18/17 07:40 BUN 14 mg/dL (7-18) D 11/18/17 07:40 Creatinine 0.6 mg/dL (0.7-1.3) L D 11/18/17 07:40 Creat Clearance w eGFR > 60 (>60) 11/18/17 07:40 POC Glucometer 136 UNITS (80-120) 11/18/17 05:19 Random Glucose 189 mg/dL (74-106) H D 11/18/17 07:40 Calcium 7.4 mg/dL (8.5-10.1) L 11/18/17 07:40 Total Bilirubin 0.9 mg/dL (0.2-1.0) D 11/18/17 07:40 AST TNP 11/18/17 07:40 ALT TNP 11/18/17 07:40 Alkaline Phosphatase 110 U/L (45-117) 11/18/17 07:40 Total Protein 7.8 g/dl (6.4-8.2) 11/18/17 07:40 Albumin 3.6 g/dl (3.4-5.0) 11/18/17 07:40 Urine Color Yellow 11/17/17 10:30 Urine Appearance Slcloudy 11/17/17 10:30 Urine pH 5.0 (5.0-8.0) 11/17/17 10:30 Ur Specific [place] 1.024 (1.001-1.035) 11/17/17 10:30 Urine Protein 2+ (NEGATIVE) H 11/17/17 10:30 Urine Glucose (UA) Negative (NEGATIVE) 11/17/17 10:30 Urine Ketones Negative (NEGATIVE) 11/17/17 10:30 Urine Blood 1+ (NEGATIVE) H 11/17/17 10:30 Urine Nitrite Negative (NEGATIVE) 11/17/17 10:30 Urine Bilirubin Negative (NEGATIVE) 11/17/17 10:30 Urine Urobilinogen Negative mg/dL (0.2-1.0) 11/17/17 10:30 Ur Leukocyte Esterase Trace (NEGATIVE) 11/17/17 10:30 Urine WBC (Auto) 18 /hpf (3-5) 11/17/17 10:30 Urine RBC (Auto) 1 /hpf (0-3) 11/17/17 10:30 Ur Epithelial Cells Rare /HPF (FEW) 11/17/17 10:30 Urine Bacteria Rare /hpf (NONE SEEN) 11/17/17 10:30 Urine Mucus Rare 11/17/17 10:30 RPR Titer Nonreactive (NONREACTIVE) 11/18/17 07:40 lab noted Assessment: 11/18/17 14:11 withdrawal sx Plan: continue detox
[2017-11-18] MEDS: HYDROCHLOROTHIAZIDE 25 MG TABLET (FP) PO SCH (15:49)
[2017-11-18] MEDS: CALCIUM (OYSTER SHELL) 500 MG TABLET (FP) PO SCH (22:22)
[2017-11-18] MEDS: THIAMINE HCL 100 MG TABLET (FP) PO SCH (22:22)
[2017-11-19] MEDS: chlordiazePOXIDE HCL 25 MG CAPSULE PO SCH ×2 (05:35→10:08)
[2017-11-19] MEDS: metFORMIN HCL 500 MG TABLET (FP) PO SCH (06:28)
[2017-11-19] MEDS: ASPIRIN 81 MG CHEWABLE TABLETS PO SCH (10:07)
[2017-11-19] MEDS: GEMFIBROZIL 600 MG TABLET (FP) PO SCH ×2 (10:07→17:31)
[2017-11-19] MEDS: CALCIUM (OYSTER SHELL) 500 MG TABLET (FP) PO SCH ×2 (10:08→22:24)
[2017-11-19] MEDS: ATENOLOL 50 MG TABLET (FP) PO SCH (10:08)
[2017-11-19] MEDS: HYDROCHLOROTHIAZIDE 25 MG TABLET (FP) PO SCH (10:08)
[2017-11-19] MEDS: amLODIPine BESYLATE 10 MG TABLET (FP) PO SCH (10:08)
[2017-11-19] MEDS: PRENATAL VITAMINS W/ FOLIC ACID TABLET (FP) PO SCH (10:08)
--- NOTE | 2017-11-19 10:18 | PN ---
[facility] CIWA - CIWA Score Nausea/Vomitin-No Nausea/No Vomiting Muscle Tremors: 3 Anxiety: 3 Agitation: 3 Paroxysmal Sweats: 1-Minimal Palms Moist Orientation: 0-Oriented Tacttile Disturbances: 0-None Auditory Disturbances: 0-None Visual Disturbances: 0-None Headache: 0-None Present CIWA-Ar Total Score: 10 S Progress Note (SOAP) Subjective: sweat anxiety tremor agitation Objective: 11/19/17 10:17 Vital Signs Temperature 98.1 F 11/19/17 10:11 Pulse Rate 95 H 11/19/17 10:11 Respiratory Rate 20 11/19/17 10:11 Blood Pressure 149/94 11/19/17 10:11 O2 Sat by Pulse Oximetry (%) Laboratory Last Values WBC 4.8 K/mm3 (4.0-10.0) 11/18/17 07:40 RBC 4.85 M/mm3 (4.00-5.60) 11/18/17 07:40 Hgb 14.4 GM/dL (11.7-16.9) 11/18/17 07:40 Hct 41.1 % (35.4-49) 11/18/17 07:40 MCV 84.8 fl (80-96) 11/18/17 07:40 MCH 29.8 pg (25.7-33.7) 11/18/17 07:40 MCHC 35.1 g/dl (32.0-35.9) 11/18/17 07:40 RDW 14.0 % (11.9-15.9) 11/18/17 07:40 Plt Count 292 K/MM3 (134-434) 11/18/17 07:40 MPV 7.3 fl (7.5-11.1) L 11/18/17 07:40 Sodium 130 mmol/L (136-145) L 11/18/17 07:40 Potassium 3.6 mmol/L (3.5-5.1) 11/18/17 07:40 Chloride 96 mmol/L (98-107) L 11/18/17 07:40 Carbon Dioxide 25 mmol/L (21-32) 11/18/17 07:40 Anion Gap 9 (8-16) 11/18/17 07:40 BUN 14 mg/dL (7-18) D 11/18/17 07:40 Creatinine 0.6 mg/dL (0.7-1.3) L D 11/18/17 07:40 Creat Clearance w eGFR > 60 (>60) 11/18/17 07:40 POC Glucometer 198 UNITS (80-120) 11/19/17 05:37 Random Glucose 189 mg/dL (74-106) H D 11/18/17 07:40 Calcium 7.4 mg/dL (8.5-10.1) L 11/18/17 07:40 Total Bilirubin 0.9 mg/dL (0.2-1.0) D 11/18/17 07:40 AST 96 U/L (15-37) H D 11/19/17 07:00 ALT TNP 11/18/17 07:40 Alkaline Phosphatase 110 U/L (45-117) 11/18/17 07:40 Total Protein 7.8 g/dl (6.4-8.2) 11/18/17 07:40 Albumin 3.6 g/dl (3.4-5.0) 11/18/17 07:40 Urine Color Yellow 11/17/17 10:30 Urine Appearance Slcloudy 11/17/17 10:30 Urine pH 5.0 (5.0-8.0) 11/17/17 10:30 Ur Specific [place] 1.024 (1.001-1.035) 11/17/17 10:30 Urine Protein 2+ (NEGATIVE) H 11/17/17 10:30 Urine Glucose (UA) Negative (NEGATIVE) 11/17/17 10:30 Urine Ketones Negative (NEGATIVE) 11/17/17 10:30 Urine Blood 1+ (NEGATIVE) H 11/17/17 10:30 Urine Nitrite Negative (NEGATIVE) 11/17/17 10:30 Urine Bilirubin Negative (NEGATIVE) 11/17/17 10:30 Urine Urobilinogen Negative mg/dL (0.2-1.0) 11/17/17 10:30 Ur Leukocyte Esterase Trace (NEGATIVE) 11/17/17 10:30 Urine WBC (Auto) 18 /hpf (3-5) 11/17/17 10:30 Urine RBC (Auto) 1 /hpf (0-3) 11/17/17 10:30 Ur Epithelial Cells Rare /HPF (FEW) 11/17/17 10:30 Urine Bacteria Rare /hpf (NONE SEEN) 11/17/17 10:30 Urine Mucus Rare 11/17/17 10:30 RPR Titer Nonreactive (NONREACTIVE) 11/18/17 07:40 lab noted Assessment: 11/19/17 10:18 withdrawal sx Plan: continue detox
[2017-11-19] MEDS: chlordiazePOXIDE 5 MG CAPSULE PO SCH ×2 (17:31→22:22)
[2017-11-19] MEDS: THIAMINE HCL 100 MG TABLET (FP) PO SCH (22:22)
[2017-11-20] MEDS: chlordiazePOXIDE 5 MG CAPSULE PO SCH ×2 (05:18→10:26)
[2017-11-20] MEDS: GEMFIBROZIL 600 MG TABLET (FP) PO SCH ×2 (08:18→17:15)
[2017-11-20] MEDS: metFORMIN HCL 500 MG TABLET (FP) PO SCH (08:18)
--- NOTE | 2017-11-20 09:48 | PN ---
S Progress Note (SOAP) Subjective: reports less anxiety, no sweat, less tremor, no agitation Objective: 11/20/17 09:46 Vital Signs Temperature 97.3 F L 11/20/17 06:00 Pulse Rate 77 11/20/17 06:00 Respiratory Rate 18 11/20/17 06:00 Blood Pressure 119/70 11/20/17 06:00 O2 Sat by Pulse Oximetry (%) Laboratory Last Values WBC 4.8 K/mm3 (4.0-10.0) 11/18/17 07:40 RBC 4.85 M/mm3 (4.00-5.60) 11/18/17 07:40 Hgb 14.4 GM/dL (11.7-16.9) 11/18/17 07:40 Hct 41.1 % (35.4-49) 11/18/17 07:40 MCV 84.8 fl (80-96) 11/18/17 07:40 MCH 29.8 pg (25.7-33.7) 11/18/17 07:40 MCHC 35.1 g/dl (32.0-35.9) 11/18/17 07:40 RDW 14.0 % (11.9-15.9) 11/18/17 07:40 Plt Count 292 K/MM3 (134-434) 11/18/17 07:40 MPV 7.3 fl (7.5-11.1) L 11/18/17 07:40 Sodium 130 mmol/L (136-145) L 11/18/17 07:40 Potassium 3.6 mmol/L (3.5-5.1) 11/18/17 07:40 Chloride 96 mmol/L (98-107) L 11/18/17 07:40 Carbon Dioxide 25 mmol/L (21-32) 11/18/17 07:40 Anion Gap 9 (8-16) 11/18/17 07:40 BUN 14 mg/dL (7-18) D 11/18/17 07:40 Creatinine 0.6 mg/dL (0.7-1.3) L D 11/18/17 07:40 Creat Clearance w eGFR > 60 (>60) 11/18/17 07:40 POC Glucometer 205 UNITS (80-120) 11/20/17 05:17 Random Glucose 189 mg/dL (74-106) H D 11/18/17 07:40 Calcium 7.4 mg/dL (8.5-10.1) L 11/18/17 07:40 Total Bilirubin 0.9 mg/dL (0.2-1.0) D 11/18/17 07:40 AST 96 U/L (15-37) H D 11/19/17 07:00 ALT TNP 11/18/17 07:40 Alkaline Phosphatase 110 U/L (45-117) 11/18/17 07:40 Total Protein 7.8 g/dl (6.4-8.2) 11/18/17 07:40 Albumin 3.6 g/dl (3.4-5.0) 11/18/17 07:40 Urine Color Yellow 11/17/17 10:30 Urine Appearance Slcloudy 11/17/17 10:30 Urine pH 5.0 (5.0-8.0) 11/17/17 10:30 Ur Specific [place] 1.024 (1.001-1.035) 11/17/17 10:30 Urine Protein 2+ (NEGATIVE) H 11/17/17 10:30 Urine Glucose (UA) Negative (NEGATIVE) 11/17/17 10:30 Urine Ketones Negative (NEGATIVE) 11/17/17 10:30 Urine Blood 1+ (NEGATIVE) H 11/17/17 10:30 Urine Nitrite Negative (NEGATIVE) 11/17/17 10:30 Urine Bilirubin Negative (NEGATIVE) 11/17/17 10:30 Urine Urobilinogen Negative mg/dL (0.2-1.0) 11/17/17 10:30 Ur Leukocyte Esterase Trace (NEGATIVE) 11/17/17 10:30 Urine WBC (Auto) 18 /hpf (3-5) 11/17/17 10:30 Urine RBC (Auto) 1 /hpf (0-3) 11/17/17 10:30 Ur Epithelial Cells Rare /HPF (FEW) 11/17/17 10:30 Urine Bacteria Rare /hpf (NONE SEEN) 11/17/17 10:30 Urine Mucus Rare 11/17/17 10:30 RPR Titer Nonreactive (NONREACTIVE) 11/18/17 07:40 lab noted Assessment: 11/20/17 09:46 less withdrawal sx Plan: medically supervised detox
[2017-11-20] MEDS: ASPIRIN 81 MG CHEWABLE TABLETS PO SCH (10:26)
[2017-11-20] MEDS: HYDROCHLOROTHIAZIDE 25 MG TABLET (FP) PO SCH (10:26)
[2017-11-20] MEDS: amLODIPine BESYLATE 10 MG TABLET (FP) PO SCH (10:26)
[2017-11-20] MEDS: PRENATAL VITAMINS W/ FOLIC ACID TABLET (FP) PO SCH (10:26)
[2017-11-20] MEDS: ATENOLOL 50 MG TABLET (FP) PO SCH (10:27)
[2017-11-20] MEDS: CALCIUM (OYSTER SHELL) 500 MG TABLET (FP) PO SCH ×2 (10:27→22:33)
--- NOTE | 2017-11-20 15:04 | CONSULT ---
[facility] Psychiatric Consult - Data Date of interview: 11/20/17 Admission source: [facility] Identifying data: Pt. is a 52 year old single male, without kids, umemployed and currently homeless. This is one of multiple admissions for patient. Pt. admitted to for alcohol dependence. Substance Abuse History: Following information confirmed with Mr. Jade: - Smoking Cessation. Smoking history: Current every day smoker (snuff 1/3 can daily). Have you smoked in the past 12 months: Yes. Aproximately how many cigarettes per day: 1 (1/3 can snuff). Cigars Per Day: 0. Hx Chewing Tobacco Use: Yes. Initiated information on smoking cessation: Yes. 'Breaking Loose' booklet given: 11/17/17 (give on floor). - Substance & Tx. History. Hx Alcohol Use: Yes. Substance Use Type: Alcohol. Hx Substance Use Treatment: Yes (detox). - Substances Abused. Alcohol. Route: Oral. Frequency: Daily. Amount used: beer(4-5 QUARTS)/VODKA(2 PINTS). Age of first use: 19. Date of Last Use: 11/17/17 Medical History: Hypertension, hypercholesterolemia, Seizures, h/o renal stones Psychiatric History: Pt. denies h/o psychiatric hospitalization and suicide attempts. History of outpatient care is unclear. Pt. reports a diagnosis of MDD and was prescribed zoloft in December of 2016. Pt. reports medication nonadherence. Pt. denies suicidal and homicidal ideation. Physical/Sexual Abuse/Trauma History: Denies. Mental Status Exam - Mental Status Exam Alert and Oriented to: Time, Place, Person Cognitive Function: Good Patient Appearance: Well Groomed Mood: Withdrawn, Anxious Affect: Mood Congruent Patient Behavior: Cooperative Speech Pattern: Delayed Voice Loudness: Normal Thought Process: Goal Oriented Thought Disorder: Not Present Hallucinations: Denies Suicidal Ideation: Denies Homicidal Ideation: Denies Insight/Judgement: Poor Sleep: Fair Appetite: Fair Muscle strength/Tone: Normal Gait/Station: Normal Psychiatric Findings - Problem List ([place] 1, 2,3) (1) Alcohol dependence with uncomplicated withdrawal Current Visit: Yes Status: Acute (2) MDD (major depressive disorder) Current Visit: No Status: Suspected Comment: Self reports. Nonadherent to medications. (3) Substance induced mood disorder Current Visit: No Status: Suspected - Initial Treatment Plan Initial Treatment Plan: Psychoeducation provided. Detoxification provided. Observation.
[2017-11-20] MEDS: chlordiazePOXIDE HCL 10 MG CAPSULE PO SCH ×2 (17:14→22:33)
[2017-11-20] MEDS: THIAMINE HCL 100 MG TABLET (FP) PO SCH (22:33)
[2017-11-21] MEDS: chlordiazePOXIDE HCL 10 MG CAPSULE PO SCH (05:24)
[2017-11-21 06:22] VITALS: BP 140/90; PULSE 87; TEMP 97.8
[2017-11-21] MEDS: GEMFIBROZIL 600 MG TABLET (FP) PO SCH (06:35)
[2017-11-21] MEDS: metFORMIN HCL 500 MG TABLET (FP) PO SCH (06:35)
--- NOTE | 2017-11-21 08:53 | DS ---
[facility] Detox Discharge Summary Admission Date: 11/17/17 Discharge Date: 11/21/17 - History Present History: Alcohol Dependence - Physical Exam Results Vital Signs: Vital Signs Temperature 97.8 F 11/21/17 06:21 Pulse Rate 87 11/21/17 06:21 Respiratory Rate 19 11/21/17 06:21 Blood Pressure 140/90 11/21/17 06:21 O2 Sat by Pulse Oximetry (%) Pertinent Admission Physical Exam Findings: withdrawal sx Vital Signs Temperature 97.8 F 11/21/17 06:21 Pulse Rate 87 11/21/17 06:21 Respiratory Rate 19 11/21/17 06:21 Blood Pressure 140/90 11/21/17 06:21 O2 Sat by Pulse Oximetry (%) Laboratory Last Values WBC 4.8 K/mm3 (4.0-10.0) 11/18/17 07:40 RBC 4.85 M/mm3 (4.00-5.60) 11/18/17 07:40 Hgb 14.4 GM/dL (11.7-16.9) 11/18/17 07:40 Hct 41.1 % (35.4-49) 11/18/17 07:40 MCV 84.8 fl (80-96) 11/18/17 07:40 MCH 29.8 pg (25.7-33.7) 11/18/17 07:40 MCHC 35.1 g/dl (32.0-35.9) 11/18/17 07:40 RDW 14.0 % (11.9-15.9) 11/18/17 07:40 Plt Count 292 K/MM3 (134-434) 11/18/17 07:40 MPV 7.3 fl (7.5-11.1) L 11/18/17 07:40 Sodium 130 mmol/L (136-145) L 11/18/17 07:40 Potassium 3.6 mmol/L (3.5-5.1) 11/18/17 07:40 Chloride 96 mmol/L (98-107) L 11/18/17 07:40 Carbon Dioxide 25 mmol/L (21-32) 11/18/17 07:40 Anion Gap 9 (8-16) 11/18/17 07:40 BUN 14 mg/dL (7-18) D 11/18/17 07:40 Creatinine 0.6 mg/dL (0.7-1.3) L D 11/18/17 07:40 Creat Clearance w eGFR > 60 (>60) 11/18/17 07:40 POC Glucometer 195 UNITS (80-120) 11/21/17 05:23 Random Glucose 189 mg/dL (74-106) H D 11/18/17 07:40 Calcium 7.4 mg/dL (8.5-10.1) L 11/18/17 07:40 Total Bilirubin 0.9 mg/dL (0.2-1.0) D 11/18/17 07:40 AST 96 U/L (15-37) H D 11/19/17 07:00 ALT TNP 11/18/17 07:40 Alkaline Phosphatase 110 U/L (45-117) 11/18/17 07:40 Total Protein 7.8 g/dl (6.4-8.2) 11/18/17 07:40 Albumin 3.6 g/dl (3.4-5.0) 11/18/17 07:40 Urine Color Yellow 11/17/17 10:30 Urine Appearance Slcloudy 11/17/17 10:30 Urine pH 5.0 (5.0-8.0) 11/17/17 10:30 Ur Specific [place] 1.024 (1.001-1.035) 11/17/17 10:30 Urine Protein 2+ (NEGATIVE) H 11/17/17 10:30 Urine Glucose (UA) Negative (NEGATIVE) 11/17/17 10:30 Urine Ketones Negative (NEGATIVE) 11/17/17 10:30 Urine Blood 1+ (NEGATIVE) H 11/17/17 10:30 Urine Nitrite Negative (NEGATIVE) 11/17/17 10:30 Urine Bilirubin Negative (NEGATIVE) 11/17/17 10:30 Urine Urobilinogen Negative mg/dL (0.2-1.0) 11/17/17 10:30 Ur Leukocyte Esterase Trace (NEGATIVE) 11/17/17 10:30 Urine WBC (Auto) 18 /hpf (3-5) 11/17/17 10:30 Urine RBC (Auto) 1 /hpf (0-3) 11/17/17 10:30 Ur Epithelial Cells Rare /HPF (FEW) 11/17/17 10:30 Urine Bacteria Rare /hpf (NONE SEEN) 11/17/17 10:30 Urine Mucus Rare 11/17/17 10:30 RPR Titer Nonreactive (NONREACTIVE) 11/18/17 07:40 lab noted - Treatment Hospital Course: Detox Protocol Followed, Detoxed Safely, Responded well, Discharged Condition Good, Rehab Referral Accepted Patient has Accepted a Rehab Referral to: as per counselor arranged - Medication Discharge Medications: Ambulatory Orders Thiamine HCl [Vitamin B-1] 100 mg PO DAILY 02/11/16 Multivitamins [Tab-A-Vit -] 1 tab PO DAILY 12/21/16 Amlodipine Besylate [Norvasc -] 10 mg PO DAILY #30 tablet 11/21/17 Atenolol [Tenormin -] 100 mg PO DAILY #30 tablet 11/21/17 Gemfibrozil [Lopid -] 600 mg PO BID #60 tablet 11/21/17 Metformin HCl [Metformin HCl ER] 500 mg PO DAILY #30 tab.er.24 11/21/17 - Diagnosis (1) Alcohol dependence with uncomplicated withdrawal Status: Acute (2) Essential (primary) hypertension Status: Chronic - AMA Did Patient Leave Against Medical Advice: No
== END 2017-11-21 06:43 | disposition home or self-care (01) | DRG 775 ==
LOC: YASAS 08:24 → Y6N 11:13
PROVIDERS: ADMIT Internal Medicine; ATTEND Internal Medicine
PROC: HZ2ZZZZ Detoxification Services for Substance Abuse Treatment (ICD-10-PCS; principal; 2017-11-17)
DX: F10.230 Alcohol dependence with withdrawal, uncomplicated (principal); F33.9 Major depressive disorder, recurrent, unspecified; F19.24 Other psychoactive substance dependence with psychoactive substance-induced mood disorder; F17.228 Nicotine dependence, chewing tobacco, with other nicotine-induced disorders; I10 Essential (primary) hypertension; E78.5 Hyperlipidemia, unspecified; E11.9 Type 2 diabetes mellitus without complications; E66.9 Obesity, unspecified; Z68.34 Body mass index [BMI] 34.0-34.9, adult; Z87.442 Personal history of urinary calculi; Z88.8 Allergy status to other drugs, medicaments and biological substances; Z79.84 Long term (current) use of oral hypoglycemic drugs; Z59.0 Homelessness
CPT/HCPCS: 36415; 80053; 81003; 81015; 82962; 84450; 85027; 86593; 93005; 93010

== ENCOUNTER 2017-12-12 09:45 | Inpatient (IN) | payer OTHER ==
[2017-12-12 10:14] VITALS: BMI 34.4
--- NOTE | 2017-12-12 11:31 | HP ---
CIWA Score - CIWA Score Nausea/Vomitin-No Nausea/No Vomiting Muscle Tremors: 4-Moderate,w/Arms Extend Anxiety: 4-Mod. Anxious/Guarded Agitation: 4-Moderately Restless Paroxysmal Sweats: 3 Orientation: 0-Oriented Tacttile Disturbances: 0-None Auditory Disturbances: 0-None Visual Disturbances: 0-None Headache: 1-Very Mild CIWA-Ar Total Score: 16 Admission ROS BHS - HPI Chief Complaint: I am here for detox.I drink too much. Allergies/Adverse Reactions: Allergies Allergy/AdvReac Type Severity Reaction Status Date / Time RASHAD Inhibitors Allergy Severe Swelling Verified 12/12/17 11:10 lisinopril Allergy Severe Swelling Verified 12/12/17 11:10 History of Present Illness: pt is a 52yr old male with a history of alcohol dependence seeking detox for treatment. Exam Limitations: Intoxication - Ebola screening Have you traveled outside of the country in the last 21 days: No Have you had contact with anyone from an Ebola affected area: No Have you been sick,other than usual withdrawal symptoms: No Do you have a fever: No - Review of Systems Constitutional: Changes in sleep, Unintentional Wgt. Loss EENT: reports: Tearing Respiratory: reports: No Symptoms reported Cardiac: reports: No Symptoms Reported GI: reports: Poor Appetite, Poor Fluid Intake : reports: No Symptoms Reported Musculoskeletal: reports: Back Pain Integumentary: reports: Flushing, Sweating Endocrine: reports: Excessive Sweating, Flushing, Intolerance to Cold, Intolerance to Heat Hematology: reports: No Symptoms Reported Psychiatric: reports: Judgement Intact, Mood/Affect Appropiate, Orientated x3, Agitated, Anxious Other Systems: Reviewed and Negative Patient History - Patient Medical History Hx Anemia: No Hx Asthma: No Hx Chronic Obstructive Pulmonary Disease (COPD): No Hx Cancer: No Hx Cardiac Disorders: No Hx Congestive Heart Failure: No Hx Hypertension: Yes Hx Hypercholesterolemia: Yes (gemfibrozil 600 mg po bid ) Hx Pacemaker: No HX Cerebrovascular Accident: No Hx Seizures: Yes (possible 'that's what they said') Hx Dementia: No Hx Diabetes: Yes Hx Gastrointestinal Disorders: No Hx Liver Disease: No Hx Genitourinary Disorders: No Hx Sexually Transmitted Disorders: No Hx Renal Disease (ESRD): Yes (history renal stone 2016 removed) Hx Thyroid Disease: No Hx Human Immunodeficiency Virus (HIV): No Hx Hepatitis C: No Hx Depression: No (denies current problem) Hx Suicide Attempt: No Hx Bipolar Disorder: No Hx Schizophrenia: No - Patient Surgical History Past Surgical History: No Hx Neurologic Surgery: No Hx Cataract Extraction: No Hx Cardiac Surgery: No Hx Lung Surgery: No Hx Breast Surgery: No Hx Breast Biopsy: No Hx Abdominal Surgery: No Hx Appendectomy: No Hx Cholecystectomy: No Hx Genitourinary Surgery: Yes (left kidney stone 2015) Hx Section: No Hx Orthopedic Surgery: No Other Surgical History: left kidney stone removed 11/2015 Anesthesia Reaction: No - PPD History Previous Implant?: No Documented Results: Positive w/proof Results: CX-ray 02/2017 PPD to be Administered?: No - Reproductive History Patient is a Female of Child Bearing Age (11 -55 yrs old): No - Smoking Cessation Smoking history: Former smoker (snuff 1/3 can daily) Have you smoked in the past 12 months: No Aproximately how many cigarettes per day: 1 (1/3 can snuff) If you are a former smoker, when did you quit?: STOPPED "IN MY TEENS" Cigars Per Day: 0 Hx Chewing Tobacco Use: No Initiated information on smoking cessation: No 'Breaking Loose' booklet given: 12/12/17 - Substance & Tx. History Hx Alcohol Use: Yes Hx Substance Use: No Substance Use Type: Alcohol Hx Substance Use Treatment: Yes ([facility] last detox 11/2017) - Substances Abused Alcohol-vodka Route: Oral Frequency: Daily Amount used: 2 pts. Age of first use: 17 Date of Last Use: 12/12/17 Family Disease History - Family Disease History Family Disease History: Heart Disease: Mother (HTN), Other: Father (Alcohol), Mother, Brother (Alcohol) Admission Physical Exam BHS - Vital Signs Vital Signs: Vital Signs - 24 hr 12/12/17 10:12 Temperature 98.8 F Pulse Rate 110 H Respiratory 16 Rate Blood Pressure 121/77 - Physical General Appearance: Yes: Appropriately Dressed, Moderate Distress, Alcohol on Breath, Obese, Tremorous, Irritable, Sweating, Anxious HEENTM: Yes: Normal Voice, Nasal Congestion, Rhinorrhea Respiratory: Yes: Lungs Clear, Normal Breath Sounds, No Respiratory Distress Neck: Yes: No masses,lesions,Nodules Breast: Yes: Within Normal Limits Cardiology: Yes: Regular Rhythm, Regular Rate, S1, S2 Abdominal: Yes: Normal Bowel Sounds, Non Tender, Soft Genitourinary: Yes: Within Normal Limits Back: Yes: Normal Inspection Musculoskeletal: Yes: Within Normal Limits Extremities: Yes: Normal Capillary Refill, Normal Inspection, Non-Tender, Tremors Neurological: Yes: Fully Oriented, Alert, Normal Response Integumentary: Yes: Normal Color, Diaphoresis Lymphatic: Yes: Within Normal Limits - Diagnostic (1) Alcohol dependence with uncomplicated withdrawal Current Visit: Yes Status: Chronic (2) Diabetes mellitus treated with oral medication Current Visit: Yes Status: Chronic (3) Essential (primary) hypertension Current Visit: Yes Status: Chronic (4) Hx of coronary artery disease Current Visit: Yes Status: Chronic (5) Hyperlipemia Current Visit: Yes Status: Chronic Qualifiers: Hyperlipidemia type: pure hypercholesterolemia Qualified Code(s): E78.00 - Pure hypercholesterolemia, unspecified; E78.0 - Pure hypercholesterolemia (6) Obesity (BMI 30-39.9) Current Visit: Yes Status: Chronic (7) PPD positive, treated Current Visit: Yes Status: Chronic Comment: cxr 02/2017 normal Cleared for Admission [facility] - Detox or Rehab [facility] Level of Care: Medically Managed Detox Regimen/Protocol: Librium [facility] Breath Alcohol Content Breath Alcohol Content: 0.269 Urine Drug Screen - Results Drug Screen Negative: No Urine Drug Screen Results: BZO-Benzodiazepines
[2017-12-12] MEDS ORDERED: MAG HYDROX/AL HYDROX/SIMETH 30 ML UNIT-DOSE CUP PO PRN (11:37)
[2017-12-12] MEDS ORDERED: MAGNESIUM CITRATE 300 ML BOTTLE PO PRN (11:37)
[2017-12-12] MEDS ORDERED: MAGNESIUM HYDROX 2400MG/30ML ORAL SUSPENSION 30 ML CUP PO PRN (11:37)
[2017-12-12] MEDS ORDERED: IBUPROFEN 400 MG TABLET (FP) PO PRN (11:37)
[2017-12-12] MEDS ORDERED: LOPERAMIDE HCL 2 MG CAPSULE PO PRN (11:37)
[2017-12-12] MEDS ORDERED: P-EPHED 60MG/TRIPROLIDI 2.5MG TABLET PO PRN (11:37)
[2017-12-12] MEDS ORDERED: ACETAMINOPHEN 325 MG TABLET (FP) PO PRN (11:37)
[2017-12-12] MEDS ORDERED: guaiFENesin/D-METHORPHAN HB 10 ML UNIT-DOSE CUPS PO PRN (11:37)
[2017-12-12] MEDS ORDERED: hydrOXYzine PAMOATE 50 MG CAPSULE (FP) PO PRN (11:37)
[2017-12-12] MEDS ORDERED: MENTHOL/PHENOL 1 EACH UD MM PRN (11:37)
[2017-12-12] MEDS ORDERED: chlordiazePOXIDE HCL 25 MG CAPSULE PO PRN (11:37)
[2017-12-12] MEDS ORDERED: chlordiazePOXIDE HCL 25 MG CAPSULE PO ONE (12:10)
--- NOTE | 2017-12-12 15:05 | PN ---
[facility] Progress Note Note: received nurse reported that home medications had been modified
--- NOTE | 2017-12-12 15:45 | EKG ---
Test Reason : Blood Pressure : / mmHG Vent. Rate : 094 BPM Atrial Rate : 094 BPM P-R Int : 180 ms QRS Dur : 094 ms QT Int : 362 ms P-R-T Axes : 035 038 043 degrees QTc Int : 452 ms NORMAL SINUS RHYTHM NONSPECIFIC T WAVE ABNORMALITY ABNORMAL ECG WHEN COMPARED WITH ECG OF 17-NOV-2017 14:15, NO SIGNIFICANT CHANGE WAS FOUND Confirmed by JUANA RAMIREZ MD ([id number]) on 12/12/2017 3:45:32 PM Referred By: Confirmed By:JUANA RAMIREZ MD
[2017-12-12] MEDS: metFORMIN HCL 500 MG TABLET (FP) PO SCH (18:11)
[2017-12-12] MEDS: GEMFIBROZIL 600 MG TABLET (FP) PO SCH (18:12)
[2017-12-12] MEDS: chlordiazePOXIDE HCL 25 MG CAPSULE PO SCH ×2 (18:21→22:07)
[2017-12-12] MEDS: THIAMINE HCL 100 MG TABLET (FP) PO SCH (22:07)
[2017-12-12] MEDS: RANITIDINE HCL 150 MG TABLET (FP) PO SCH (22:07)
[2017-12-12 22:45] LABS: URINE APPEARANCE SLCLOUDY; URINE BILIRUBIN NEGATIVE (NEGATIVE); URINE BLOOD NEGATIVE (NEGATIVE); URINE COLOR YELLOW; URINE GLUCOSE (UA) NEGATIVE (NEGATIVE); URINE KETONE NEGATIVE (NEGATIVE); URINE LEUK ESTERASE NEGATIVE (NEGATIVE); URINE NITRITE POSITIVE (NEGATIVE); URINE UROBILINOGEN NEGATIVE mg/dL (0.2-1.0)
[2017-12-12 22:46] LABS: URINE PROTEIN 1+ (NEGATIVE)
[2017-12-12 23:18] LABS: EPI CELLS RARE /HPF (FEW); URINE BACTERIA RARE /hpf (NONE SEEN); URINE MUCUS RARE
[2017-12-13] MEDS: chlordiazePOXIDE HCL 25 MG CAPSULE PO SCH ×4 (05:48→22:08)
[2017-12-13] MEDS: metFORMIN HCL 500 MG TABLET (FP) PO SCH ×2 (06:42→17:23)
[2017-12-13] MEDS: GEMFIBROZIL 600 MG TABLET (FP) PO SCH ×2 (07:46→17:24)
[2017-12-13] MEDS ORDERED: ATENOLOL 50 MG TABLET (FP) PO SCH (10:00)
[2017-12-13 10:07] LABS: HEMOGLOBIN 12.5 GM/dL (11.7-16.9); MCHC 35.6 g/dl (32.0-35.9); MEAN CELL VOLUME 87.1 fl (80-96); MEAN PLT VOLUME 7.1 fl (7.5-11.1); PLATELET COUNT 230 K/MM3 (134-434); RBC 4.02 M/mm3 (4.00-5.60); RDW 15.6 % (11.9-15.9); WHITE BLOOD COUNT 4.3 K/mm3 (4.0-10.0)
[2017-12-13] MEDS: ATENOLOL 50 MG TABLET (FP) PO SCH (10:37)
[2017-12-13] MEDS: amLODIPine BESYLATE 10 MG TABLET (FP) PO SCH (10:37)
[2017-12-13] MEDS: PRENATAL VITAMINS W/ FOLIC ACID TABLET (FP) PO SCH (10:37)
[2017-12-13] MEDS: RANITIDINE HCL 150 MG TABLET (FP) PO SCH ×2 (10:37→22:08)
[2017-12-13] MEDS: ASPIRIN 81 MG CHEWABLE TABLETS PO SCH (10:38)
--- NOTE | 2017-12-13 11:14 | PN ---
[facility] CIWA - CIWA Score Nausea/Vomitin-No Nausea/No Vomiting Muscle Tremors: 4-Moderate,w/Arms Extend Anxiety: 4-Mod. Anxious/Guarded Agitation: 4-Moderately Restless Paroxysmal Sweats: 1-Minimal Palms Moist Orientation: 0-Oriented Tacttile Disturbances: 3-Moderate Itch/Numb/Burn Auditory Disturbances: 0-None Visual Disturbances: 0-None Headache: 0-None Present CIWA-Ar Total Score: 16 BHS Progress Note (SOAP) Subjective: ANXIETY,SWEATS,TREMORS,DIARRHEA. Objective: 12/13/17 11:10 Vital Signs Temperature 98.9 F 12/13/17 11:02 Pulse Rate 95 H 12/13/17 11:02 Respiratory Rate 19 12/13/17 11:02 Blood Pressure 149/93 12/13/17 11:02 O2 Sat by Pulse Oximetry (%) Laboratory Last Values WBC 4.3 K/mm3 (4.0-10.0) 12/13/17 06:00 RBC 4.02 M/mm3 (4.00-5.60) 12/13/17 06:00 Hgb 12.5 GM/dL (11.7-16.9) D 12/13/17 06:00 Hct 35.0 % (35.4-49) L 12/13/17 06:00 MCV 87.1 fl (80-96) 12/13/17 06:00 MCH 31.0 pg (25.7-33.7) 12/13/17 06:00 MCHC 35.6 g/dl (32.0-35.9) 12/13/17 06:00 RDW 15.6 % (11.9-15.9) D 12/13/17 06:00 Plt Count 230 K/MM3 (134-434) D 12/13/17 06:00 MPV 7.1 fl (7.5-11.1) L 12/13/17 06:00 POC Glucometer 139 UNITS (80-120) 12/13/17 05:47 Urine Color Yellow 12/12/17 20:00 Urine Appearance Slcloudy 12/12/17 20:00 Urine pH 5.0 (5.0-8.0) 12/12/17 20:00 Ur Specific [place] 1.016 (1.001-1.035) 12/12/17 20:00 Urine Protein 1+ (NEGATIVE) H 12/12/17 20:00 Urine Glucose (UA) Negative (NEGATIVE) 12/12/17 20:00 Urine Ketones Negative (NEGATIVE) 12/12/17 20:00 Urine Blood Negative (NEGATIVE) 12/12/17 20:00 Urine Nitrite Positive (NEGATIVE) 12/12/17 20:00 Urine Bilirubin Negative (NEGATIVE) 12/12/17 20:00 Urine Urobilinogen Negative mg/dL (0.2-1.0) 12/12/17 20:00 Ur Leukocyte Esterase Negative (NEGATIVE) 12/12/17 20:00 Urine WBC (Auto) 2 /hpf (3-5) 12/12/17 20:00 Urine RBC (Auto) <1 /hpf (0-3) 12/12/17 20:00 Ur Epithelial Cells Rare /HPF (FEW) 12/12/17 20:00 Urine Bacteria Rare /hpf (NONE SEEN) 12/12/17 20:00 Urine Mucus Rare 12/12/17 20:00 LABS NOTED OTHER RESULTS PENDING Assessment: 12/13/17 11:11 WITHDRAWAL SX Plan: CONTINUE DETOX
[2017-12-13 12:38] LABS: ALBUMIN 3.4 g/dl (3.4-5.0); ALK PHOS 134 U/L (45-117); ANION GAP 10 (8-16); BILIRUBIN,TOTAL 0.3 mg/dL (0.2-1.0); CALCIUM 7.5 mg/dL (8.5-10.1); CHLORIDE 108 mmol/L (98-107); CO2 23 mmol/L (21-32); CREATININE 0.8 mg/dL (0.7-1.3); GLUCOSE,RANDOM 210 mg/dL (74-106); POTASSIUM 3.6 mmol/L (3.5-5.1); SGOT/AST 118 U/L (15-37); SODIUM 141 mmol/L (136-145)
[2017-12-13 12:40] LABS: BLOOD UREA NITROGEN 23 mg/dL (7-18); TOT PROT 7.5 g/dl (6.4-8.2)
[2017-12-13 12:41] LABS: SGPT/ALT 118 U/L (12-78)
[2017-12-13] MEDS: THIAMINE HCL 100 MG TABLET (FP) PO SCH (22:08)
[2017-12-14] MEDS: chlordiazePOXIDE HCL 25 MG CAPSULE PO SCH ×2 (05:36→10:36)
[2017-12-14] MEDS: GEMFIBROZIL 600 MG TABLET (FP) PO SCH ×2 (08:24→17:53)
[2017-12-14] MEDS: metFORMIN HCL 500 MG TABLET (FP) PO SCH ×2 (08:24→17:53)
[2017-12-14] MEDS: ASPIRIN 81 MG CHEWABLE TABLETS PO SCH (10:36)
[2017-12-14] MEDS: ATENOLOL 50 MG TABLET (FP) PO SCH (10:36)
[2017-12-14] MEDS: RANITIDINE HCL 150 MG TABLET (FP) PO SCH ×2 (10:37→22:34)
[2017-12-14] MEDS: PRENATAL VITAMINS W/ FOLIC ACID TABLET (FP) PO SCH (10:37)
[2017-12-14] MEDS: amLODIPine BESYLATE 10 MG TABLET (FP) PO SCH (10:37)
--- NOTE | 2017-12-14 11:33 | PN ---
[facility] CIWA - CIWA Score Nausea/Vomitin-No Nausea/No Vomiting Muscle Tremors: 4-Moderate,w/Arms Extend Anxiety: 4-Mod. Anxious/Guarded Agitation: 3 Paroxysmal Sweats: 1-Minimal Palms Moist Orientation: 0-Oriented Tacttile Disturbances: 3-Moderate Itch/Numb/Burn Auditory Disturbances: 0-None Visual Disturbances: 0-None Headache: 0-None Present CIWA-Ar Total Score: 15 S Progress Note (SOAP) Subjective: ANXIETY,SWEATS,TREMORS,ACHES,FATIGUE. Objective: 12/14/17 11:30 Vital Signs Temperature 96.2 F L 12/14/17 09:36 Pulse Rate 88 12/14/17 09:36 Respiratory Rate 20 12/14/17 09:36 Blood Pressure 139/84 12/14/17 09:36 O2 Sat by Pulse Oximetry (%) Laboratory Last Values WBC 4.3 K/mm3 (4.0-10.0) 12/13/17 06:00 RBC 4.02 M/mm3 (4.00-5.60) 12/13/17 06:00 Hgb 12.5 GM/dL (11.7-16.9) D 12/13/17 06:00 Hct 35.0 % (35.4-49) L 12/13/17 06:00 MCV 87.1 fl (80-96) 12/13/17 06:00 MCH 31.0 pg (25.7-33.7) 12/13/17 06:00 MCHC 35.6 g/dl (32.0-35.9) 12/13/17 06:00 RDW 15.6 % (11.9-15.9) D 12/13/17 06:00 Plt Count 230 K/MM3 (134-434) D 12/13/17 06:00 MPV 7.1 fl (7.5-11.1) L 12/13/17 06:00 Sodium 141 mmol/L (136-145) 12/13/17 06:00 Potassium 3.6 mmol/L (3.5-5.1) 12/13/17 06:00 Chloride 108 mmol/L (98-107) H D 12/13/17 06:00 Carbon Dioxide 23 mmol/L (21-32) 12/13/17 06:00 Anion Gap 10 (8-16) 12/13/17 06:00 BUN 23 mg/dL (7-18) H D 12/13/17 06:00 Creatinine 0.8 mg/dL (0.7-1.3) D 12/13/17 06:00 Creat Clearance w eGFR > 60 (>60) 12/13/17 06:00 POC Glucometer 145 UNITS (80-120) 12/14/17 05:35 Random Glucose 210 mg/dL (74-106) H 12/13/17 06:00 Calcium 7.5 mg/dL (8.5-10.1) L 12/13/17 06:00 Total Bilirubin 0.3 mg/dL (0.2-1.0) D 12/13/17 06:00 AST 118 U/L (15-37) H D 12/13/17 06:00 ALT 118 U/L (12-78) H D 12/13/17 06:00 Alkaline Phosphatase 134 U/L (45-117) H D 12/13/17 06:00 Total Protein 7.5 g/dl (6.4-8.2) 12/13/17 06:00 Albumin 3.4 g/dl (3.4-5.0) 12/13/17 06:00 Urine Color Yellow 12/12/17 20:00 Urine Appearance Slcloudy 12/12/17 20:00 Urine pH 5.0 (5.0-8.0) 12/12/17 20:00 Ur Specific [place] 1.016 (1.001-1.035) 12/12/17 20:00 Urine Protein 1+ (NEGATIVE) H 12/12/17 20:00 Urine Glucose (UA) Negative (NEGATIVE) 12/12/17 20:00 Urine Ketones Negative (NEGATIVE) 12/12/17 20:00 Urine Blood Negative (NEGATIVE) 12/12/17 20:00 Urine Nitrite Positive (NEGATIVE) 12/12/17 20:00 Urine Bilirubin Negative (NEGATIVE) 12/12/17 20:00 Urine Urobilinogen Negative mg/dL (0.2-1.0) 12/12/17 20:00 Ur Leukocyte Esterase Negative (NEGATIVE) 12/12/17 20:00 Urine WBC (Auto) 2 /hpf (3-5) 12/12/17 20:00 Urine RBC (Auto) <1 /hpf (0-3) 12/12/17 20:00 Ur Epithelial Cells Rare /HPF (FEW) 12/12/17 20:00 Urine Bacteria Rare /hpf (NONE SEEN) 12/12/17 20:00 Urine Mucus Rare 12/12/17 20:00 RPR Titer Nonreactive (NONREACTIVE) 12/13/17 06:00 Assessment: 12/14/17 11:30 WITHDRAWAL SX Plan: CONTINUE DETOX REPEAT CMP;INR ON 12/16/17
[2017-12-14] MEDS: chlordiazePOXIDE 5 MG CAPSULE PO SCH ×2 (17:53→22:34)
[2017-12-14] MEDS: THIAMINE HCL 100 MG TABLET (FP) PO SCH (22:34)
[2017-12-15] MEDS: chlordiazePOXIDE 5 MG CAPSULE PO SCH ×2 (05:59→10:20)
[2017-12-15] MEDS: GEMFIBROZIL 600 MG TABLET (FP) PO SCH ×2 (07:13→18:09)
[2017-12-15] MEDS: metFORMIN HCL 500 MG TABLET (FP) PO SCH ×2 (07:13→18:08)
[2017-12-15] MEDS: RANITIDINE HCL 150 MG TABLET (FP) PO SCH ×2 (10:20→22:59)
[2017-12-15] MEDS: ASPIRIN 81 MG CHEWABLE TABLETS PO SCH (10:20)
[2017-12-15] MEDS: amLODIPine BESYLATE 10 MG TABLET (FP) PO SCH (10:20)
[2017-12-15] MEDS: PRENATAL VITAMINS W/ FOLIC ACID TABLET (FP) PO SCH (10:20)
[2017-12-15] MEDS: ATENOLOL 50 MG TABLET (FP) PO SCH (10:21)
--- NOTE | 2017-12-15 16:01 | PN ---
[facility] Progress Note (SOAP) Subjective: Diarrhea, Fatigue, Body Aches. Objective: PATIENT A & O X 3. NO ACUTE DISTRESS. 12/15/17 15:59 Vital Signs Temperature 96.0 F L 12/15/17 14:15 Pulse Rate 74 12/15/17 14:15 Respiratory Rate 18 12/15/17 14:15 Blood Pressure 130/83 12/15/17 14:15 O2 Sat by Pulse Oximetry (%) Laboratory Tests 12/12/17 12/12/17 12/12/17 11:32 16:39 20:00 WBC RBC Hgb Hct MCV MCH MCHC RDW Plt Count MPV Sodium Potassium Chloride Carbon Dioxide Anion Gap BUN Creatinine Creat Clearance w eGFR POC Glucometer 192 175 Random Glucose Calcium Total Bilirubin AST ALT Alkaline Phosphatase Total Protein Albumin Urine Color Yellow Urine Appearance Slcloudy Urine pH 5.0 Ur Specific [place] 1.016 Urine Protein 1+ H Urine Glucose (UA) Negative Urine Ketones Negative Urine Blood Negative Urine Nitrite Positive Urine Bilirubin Negative Urine Urobilinogen Negative Ur Leukocyte Esterase Negative Urine WBC (Auto) 2 Urine RBC (Auto) <1 Ur Epithelial Cells Rare Urine Bacteria Rare Urine Mucus Rare RPR Titer 12/13/17 12/13/17 12/13/17 05:47 06:00 06:00 WBC 4.3 RBC 4.02 Hgb 12.5 D Hct 35.0 L MCV 87.1 MCH 31.0 MCHC 35.6 RDW 15.6 D Plt Count 230 D MPV 7.1 L Sodium 141 Potassium 3.6 Chloride 108 H D Carbon Dioxide 23 Anion Gap 10 BUN 23 H D Creatinine 0.8 D Creat Clearance w eGFR > 60 POC Glucometer 139 Random Glucose 210 H Calcium 7.5 L Total Bilirubin 0.3 D AST 118 H D ALT 118 H D Alkaline Phosphatase 134 H D Total Protein 7.5 Albumin 3.4 Urine Color Urine Appearance Urine pH Ur Specific [place] Urine Protein Urine Glucose (UA) Urine Ketones Urine Blood Urine Nitrite Urine Bilirubin Urine Urobilinogen Ur Leukocyte Esterase Urine WBC (Auto) Urine RBC (Auto) Ur Epithelial Cells Urine Bacteria Urine Mucus RPR Titer 12/13/17 12/13/17 12/14/17 06:00 16:26 05:35 WBC RBC Hgb Hct MCV MCH MCHC RDW Plt Count MPV Sodium Potassium Chloride Carbon Dioxide Anion Gap BUN Creatinine Creat Clearance w eGFR POC Glucometer 182 145 Random Glucose Calcium Total Bilirubin AST ALT Alkaline Phosphatase Total Protein Albumin Urine Color Urine Appearance Urine pH Ur Specific [place] Urine Protein Urine Glucose (UA) Urine Ketones Urine Blood Urine Nitrite Urine Bilirubin Urine Urobilinogen Ur Leukocyte Esterase Urine WBC (Auto) Urine RBC (Auto) Ur Epithelial Cells Urine Bacteria Urine Mucus RPR Titer Nonreactive 12/15/17 06:01 WBC RBC Hgb Hct MCV MCH MCHC RDW Plt Count MPV Sodium Potassium Chloride Carbon Dioxide Anion Gap BUN Creatinine Creat Clearance w eGFR POC Glucometer 135 Random Glucose Calcium Total Bilirubin AST ALT Alkaline Phosphatase Total Protein Albumin Urine Color Urine Appearance Urine pH Ur Specific [place] Urine Protein Urine Glucose (UA) Urine Ketones Urine Blood Urine Nitrite Urine Bilirubin Urine Urobilinogen Ur Leukocyte Esterase Urine WBC (Auto) Urine RBC (Auto) Ur Epithelial Cells Urine Bacteria Urine Mucus RPR Titer LABS NOTED. CMP, PT/INR ALREADY SCHEDULED TO BE DRAWN TOMORROW AM. 12/15/17 16:03 Assessment: 12/15/17 15:59 WITHDRAWAL SYMPTOMS. Plan: CONTINUE DETOX.
[2017-12-15] MEDS: chlordiazePOXIDE HCL 10 MG CAPSULE PO SCH ×2 (18:08→22:59)
[2017-12-15] MEDS: THIAMINE HCL 100 MG TABLET (FP) PO SCH (22:59)
[2017-12-16] MEDS: chlordiazePOXIDE HCL 10 MG CAPSULE PO SCH ×2 (05:14→11:57)
[2017-12-16] MEDS: GEMFIBROZIL 600 MG TABLET (FP) PO SCH (08:05)
[2017-12-16] MEDS: metFORMIN HCL 500 MG TABLET (FP) PO SCH (08:05)
[2017-12-16 09:58] VITALS: BP 141/85; PULSE 92; TEMP 96.8
[2017-12-16 10:39] LABS: ALBUMIN 3.3 g/dl (3.4-5.0); ANION GAP 12 (8-16); BLOOD UREA NITROGEN 11 mg/dL (7-18); CALCIUM 8.5 mg/dL (8.5-10.1); CHLORIDE 105 mmol/L (98-107); CO2 23 mmol/L (21-32); CREATININE 0.8 mg/dL (0.7-1.3); GLUCOSE,RANDOM 163 mg/dL (74-106); POTASSIUM 3.7 mmol/L (3.5-5.1); SGOT/AST 51 U/L (15-37); SGPT/ALT 71 U/L (12-78); SODIUM 140 mmol/L (136-145)
[2017-12-16 10:41] LABS: ALK PHOS 87 U/L (45-117); BILIRUBIN,TOTAL 0.6 mg/dL (0.2-1.0); TOT PROT 7.5 g/dl (6.4-8.2)
[2017-12-16 10:57] LABS: INR 0.98 (0.82-1.09); PROTHROMBIN TIME (PATIENT) 11.1 SEC (9.98-11.88)
[2017-12-16] MEDS: ASPIRIN 81 MG CHEWABLE TABLETS PO SCH (11:57)
[2017-12-16] MEDS: ATENOLOL 50 MG TABLET (FP) PO SCH (11:57)
[2017-12-16] MEDS: PRENATAL VITAMINS W/ FOLIC ACID TABLET (FP) PO SCH (11:57)
[2017-12-16] MEDS: RANITIDINE HCL 150 MG TABLET (FP) PO SCH (11:57)
[2017-12-16] MEDS: amLODIPine BESYLATE 10 MG TABLET (FP) PO SCH (11:57)
--- NOTE | 2017-12-16 16:17 | DS ---
[facility] Detox Discharge Summary Admission Date: 12/12/17 - History Present History: Alcohol Dependence Pertinent Past History: DMT2 HLD HTN CAD PPD Positive Obesity - Physical Exam Results Vital Signs: Vital Signs Temperature 96.8 F L 12/16/17 09:57 Pulse Rate 92 H 12/16/17 09:57 Respiratory Rate 20 12/16/17 09:57 Blood Pressure 141/85 12/16/17 09:57 O2 Sat by Pulse Oximetry (%) Pertinent Admission Physical Exam Findings: Withdrawal symptoms Laboratory Tests 12/12/17 12/12/17 12/12/17 11:32 16:39 20:00 WBC RBC Hgb Hct MCV MCH MCHC RDW Plt Count MPV PT with INR INR Sodium Potassium Chloride Carbon Dioxide Anion Gap BUN Creatinine Creat Clearance w eGFR POC Glucometer 192 175 Random Glucose Calcium Total Bilirubin AST ALT Alkaline Phosphatase Total Protein Albumin Urine Color Yellow Urine Appearance Slcloudy Urine pH 5.0 Ur Specific [place] 1.016 Urine Protein 1+ H Urine Glucose (UA) Negative Urine Ketones Negative Urine Blood Negative Urine Nitrite Positive Urine Bilirubin Negative Urine Urobilinogen Negative Ur Leukocyte Esterase Negative Urine WBC (Auto) 2 Urine RBC (Auto) <1 Ur Epithelial Cells Rare Urine Bacteria Rare Urine Mucus Rare RPR Titer 12/13/17 12/13/17 12/13/17 05:47 06:00 06:00 WBC 4.3 RBC 4.02 Hgb 12.5 D Hct 35.0 L MCV 87.1 MCH 31.0 MCHC 35.6 RDW 15.6 D Plt Count 230 D MPV 7.1 L PT with INR INR Sodium 141 Potassium 3.6 Chloride 108 H D Carbon Dioxide 23 Anion Gap 10 BUN 23 H D Creatinine 0.8 D Creat Clearance w eGFR > 60 POC Glucometer 139 Random Glucose 210 H Calcium 7.5 L Total Bilirubin 0.3 D AST 118 H D ALT 118 H D Alkaline Phosphatase 134 H D Total Protein 7.5 Albumin 3.4 Urine Color Urine Appearance Urine pH Ur Specific [place] Urine Protein Urine Glucose (UA) Urine Ketones Urine Blood Urine Nitrite Urine Bilirubin Urine Urobilinogen Ur Leukocyte Esterase Urine WBC (Auto) Urine RBC (Auto) Ur Epithelial Cells Urine Bacteria Urine Mucus RPR Titer 12/13/17 12/13/17 12/14/17 06:00 16:26 05:35 WBC RBC Hgb Hct MCV MCH MCHC RDW Plt Count MPV PT with INR INR Sodium Potassium Chloride Carbon Dioxide Anion Gap BUN Creatinine Creat Clearance w eGFR POC Glucometer 182 145 Random Glucose Calcium Total Bilirubin AST ALT Alkaline Phosphatase Total Protein Albumin Urine Color Urine Appearance Urine pH Ur Specific [place] Urine Protein Urine Glucose (UA) Urine Ketones Urine Blood Urine Nitrite Urine Bilirubin Urine Urobilinogen Ur Leukocyte Esterase Urine WBC (Auto) Urine RBC (Auto) Ur Epithelial Cells Urine Bacteria Urine Mucus RPR Titer Nonreactive 12/15/17 12/15/17 12/16/17 06:01 16:14 07:01 WBC RBC Hgb Hct MCV MCH MCHC RDW Plt Count MPV PT with INR INR Sodium Potassium Chloride Carbon Dioxide Anion Gap BUN Creatinine Creat Clearance w eGFR POC Glucometer 135 187 204 Random Glucose Calcium Total Bilirubin AST ALT Alkaline Phosphatase Total Protein Albumin Urine Color Urine Appearance Urine pH Ur Specific [place] Urine Protein Urine Glucose (UA) Urine Ketones Urine Blood Urine Nitrite Urine Bilirubin Urine Urobilinogen Ur Leukocyte Esterase Urine WBC (Auto) Urine RBC (Auto) Ur Epithelial Cells Urine Bacteria Urine Mucus RPR Titer 12/16/17 12/16/17 08:00 08:00 WBC RBC Hgb Hct MCV MCH MCHC RDW Plt Count MPV PT with INR 11.10 INR 0.98 Sodium 140 Potassium 3.7 Chloride 105 Carbon Dioxide 23 Anion Gap 12 BUN 11 D Creatinine 0.8 Creat Clearance w eGFR > 60 POC Glucometer Random Glucose 163 H D Calcium 8.5 Total Bilirubin 0.6 D AST 51 H D ALT 71 D Alkaline Phosphatase 87 D Total Protein 7.5 Albumin 3.3 L Urine Color Urine Appearance Urine pH Ur Specific [place] Urine Protein Urine Glucose (UA) Urine Ketones Urine Blood Urine Nitrite Urine Bilirubin Urine Urobilinogen Ur Leukocyte Esterase Urine WBC (Auto) Urine RBC (Auto) Ur Epithelial Cells Urine Bacteria Urine Mucus RPR Titer Labs noted - Treatment Hospital Course: Detox Protocol Followed, Detoxed Safely, Responded well, Discharged Condition Good - Medication Discharge Medications: Ambulatory Orders Amlodipine Besylate [Norvasc -] 10 mg PO DAILY #30 tablet 11/21/17 Gemfibrozil [Lopid -] 600 mg PO BID #60 tablet 11/21/17 Aspirin [ASA -] 81 mg PO DAILY 12/12/17 Atenolol [Tenormin -] 50 mg PO DAILY 12/12/17 Folic Acid - 1 mg PO DAILY 12/12/17 Metformin HCl [Glucophage] 500 mg PO BID 12/12/17 Multivitamins [Tab-A-Vit -] 1 tab PO DAILY 12/12/17 Ranitidine [Zantac -] 150 mg PO BID 12/12/17 Thiamine HCl [Vitamin B1] 100 mg PO DAILY 12/12/17 - Diagnosis (1) Alcohol dependence with uncomplicated withdrawal Status: Acute (2) Insomnia Status: Acute (3) Diabetes mellitus treated with oral medication Status: Chronic (4) Essential (primary) hypertension Status: Chronic (5) Hx of coronary artery disease Status: Chronic (6) Hyperlipemia Status: Chronic Qualifiers: Hyperlipidemia type: pure hypercholesterolemia Qualified Code(s): E78.00 - Pure hypercholesterolemia, unspecified; E78.0 - Pure hypercholesterolemia (7) Obesity (BMI 30-39.9) Status: Chronic (8) PPD positive, treated Status: Chronic (9) Seizure disorder Status: Chronic (10) MDD (major depressive disorder) Status: Chronic (11) Substance induced mood disorder Status: Acute - AMA Did Patient Leave Against Medical Advice: No (Follow up with your PCP within 1- 2 weeks)
== END 2017-12-16 14:07 | disposition other institution (70) | DRG 775 ==
LOC: YASAS 09:45 → Y3N 12:06
PROVIDERS: ADMIT Internal Medicine; ATTEND Internal Medicine
PROC: HZ2ZZZZ Detoxification Services for Substance Abuse Treatment (ICD-10-PCS; principal; 2017-12-12)
DX: F10.230 Alcohol dependence with withdrawal, uncomplicated (principal); F33.9 Major depressive disorder, recurrent, unspecified; F19.24 Other psychoactive substance dependence with psychoactive substance-induced mood disorder; I10 Essential (primary) hypertension; E78.5 Hyperlipidemia, unspecified; G47.00 Insomnia, unspecified; I25.10 Atherosclerotic heart disease of native coronary artery without angina pectoris; E11.9 Type 2 diabetes mellitus without complications; E66.9 Obesity, unspecified; Z68.34 Body mass index [BMI] 34.0-34.9, adult; Z79.84 Long term (current) use of oral hypoglycemic drugs; Z86.69 Personal history of other diseases of the nervous system and sense organs; Z88.8 Allergy status to other drugs, medicaments and biological substances; Z87.442 Personal history of urinary calculi; Z87.891 Personal history of nicotine dependence
CPT/HCPCS: 36415; 80053; 81003; 81015; 82962; 85027; 85610; 86593; 93005; 93010

== ENCOUNTER 2017-12-16 15:12 | Inpatient (IN) | payer OTHER ==
--- NOTE | 2017-12-16 16:56 | HP ---
[facility] Rehab Assess/Revision - Admission History Date of Admission to Rehab: 12/16/17 - Vital signs Vital Signs: Vital Signs Period Temp Pulse Resp BP Sys/Torrez Pulse Ox Last 24 Hr 98.3 F 94 18 134/81 - Findings Detox History & Physical reviewed: Yes Concur with findings: Yes Comments/Additional Findings: FOR REHAB PROTOCOL Inpatient Rehab Admission - Initial Determination Are CD services needed?: Yes Free of communicable disease: Yes Not in need of hospitalization: Yes - Rehab Admission Criteria Previous failed treatment: Yes Poor recovery environment: Yes Comorbidities: Yes Lacks judgement: No Patient is meeting Inpatient Rehab admission criteria:: Yes
[2017-12-16] MEDS ORDERED: P-EPHED 60MG/TRIPROLIDI 2.5MG TABLET PO PRN (16:57)
[2017-12-16] MEDS ORDERED: ACETAMINOPHEN 325 MG TABLET (FP) PO PRN (16:57)
[2017-12-16] MEDS ORDERED: MENTHOL/PHENOL 1 EACH UD MM PRN (16:57)
[2017-12-16] MEDS ORDERED: MAG HYDROX/AL HYDROX/SIMETH 30 ML UNIT-DOSE CUP PO PRN (16:57)
[2017-12-16] MEDS ORDERED: MAGNESIUM HYDROX 2400MG/30ML ORAL SUSPENSION 30 ML CUP PO PRN (16:57)
[2017-12-16] MEDS ORDERED: NICOTINE POLACRILEX 2 MG GUM BUC PRN (16:57)
[2017-12-16] MEDS ORDERED: LOPERAMIDE HCL 2 MG CAPSULE PO PRN (16:57)
[2017-12-16] MEDS ORDERED: guaiFENesin/D-METHORPHAN HB 10 ML UNIT-DOSE CUPS PO PRN (16:57)
[2017-12-16] MEDS ORDERED: MAGNESIUM CITRATE 300 ML BOTTLE PO PRN (16:57)
[2017-12-16] MEDS ORDERED: IBUPROFEN 400 MG TABLET (FP) PO PRN (16:57)
[2017-12-16] MEDS: NICOTINE 21 MG/24 HOURS TOPICAL PATCH TD SCH (19:11)
[2017-12-16] MEDS: THIAMINE HCL 100 MG TABLET (FP) PO SCH (21:23)
--- NOTE | 2017-12-17 06:46 | HP ---
Psychiatrist Admission - Data Date of interview: 12/17/17 Admission source: 3N Identifying data: This is the third [facility] admission for this 52 years old single Black male, father of a 18 year ld son, unemployed with no source of income, homeless. , homeless Medical History: Significant for hypertension, hypercholesterolemia, alcohol- related seizures, diabetes mellitus, arthritis and a history of myocardial infarction in 2015, prophylactic treatment for TB and surgical procedure for removal of renal stones in 2016. Psychiatric History: Denies history of previous psychiatric treatment Physical/Sexual Abuse/Trauma History: Denies history of emotional, physical or sexual abuse as well as DV relationship. No service Additional Comment: Reports history of multiple pevious arrests including 2 felony convictions. Denies being on parole/probation at present Vital Signs: Vital Signs - 24 hr 12/16/17 12/17/17 12/17/17 15:29 00:30 03:30 Temperature 98.3 F Pulse Rate 94 H Respiratory 18 16 16 Rate Blood Pressure 134/81 12/17/17 06:42 Temperature 98.2 F Pulse Rate 87 Respiratory 16 Rate Blood Pressure 152/89 Allergies/Adverse Reactions: Allergies Allergy/AdvReac Type Severity Reaction Status Date / Time RASHAD Inhibitors Allergy Severe Swelling Verified 12/12/17 11:10 lisinopril Allergy Severe Swelling Verified 12/12/17 11:10 Date of last physical exam: 12/12/17 Concur with the findings of this exam: Yes - Substance Abuse/Tx History Hx Alcohol Use: Yes Hx Substance Use: No Substance Use Type: Alcohol (Started drinking alcohol at age 17, consumes 2 pints of vodka daily. Last drank on 12/12/17) Hx Substance Use Treatment: Yes (7 previous inpatient detox & 2 inpt rehab admissions @ [facility]) Mental Status Exam - Mental Status Exam Alert and Oriented to: Time, Place, Person Cognitive Function: Fair Patient Appearance: Disheveled Mood: Hopeful, Euthymic Patient Behavior: Cooperative Speech Pattern: Clear Voice Loudness: Normal Thought Process: Intact, Goal Oriented Thought Disorder: Not Present Hallucinations: Denies Suicidal Ideation: Denies Homicidal Ideation: Denies Insight/Judgement: Fair Sleep: Poorly Appetite: Good Muscle strength/Tone: Normal Gait/Station: Normal Psychiatric Findings - Problem List ([place] 1, 2,3) (1) Alcohol dependence Current Visit: Yes Status: Acute (2) Alcohol-induced sleep disorder Current Visit: Yes Status: Acute (3) Diabetes mellitus treated with oral medication Current Visit: No Status: Chronic (4) Essential (primary) hypertension Current Visit: No Status: Chronic (5) Hx of coronary artery disease Current Visit: No Status: Chronic (6) Hyperlipemia Current Visit: No Status: Chronic Qualifiers: Hyperlipidemia type: pure hypercholesterolemia Qualified Code(s): E78.00 - Pure hypercholesterolemia, unspecified; E78.0 - Pure hypercholesterolemia (7) Obesity (BMI 30-39.9) Current Visit: No Status: Chronic (8) PPD positive, treated Current Visit: No Status: Chronic Comment: cxr 02/2017 normal (9) Seizure disorder Current Visit: No Status: Chronic - Initial Treatment Plan Initial Treatment Plan: 1) Start Belsomra 10 mg po HS prn for insomnia. 2) Monitor progress
[2017-12-17] MEDS: NICOTINE 21 MG/24 HOURS TOPICAL PATCH TD SCH (09:58)
[2017-12-17] MEDS: PRENATAL VITAMINS W/ FOLIC ACID TABLET (FP) PO SCH (09:58)
[2017-12-17] MEDS: THIAMINE HCL 100 MG TABLET (FP) PO SCH (21:29)
[2017-12-17] MEDS: hydrOXYzine PAMOATE 50 MG CAPSULE (FP) PO PRN (21:42)
[2017-12-18] MEDS: metFORMIN HCL 500 MG TABLET (FP) PO SCH ×2 (06:19→17:07)
[2017-12-18] MEDS: GEMFIBROZIL 600 MG TABLET (FP) PO SCH ×2 (06:42→17:07)
[2017-12-18] MEDS ORDERED: MULTIVITAMINS (DAILY MVI) TABLET (FP) PO SCH (10:00)
[2017-12-18] MEDS ORDERED: FOLIC ACID 1 MG TABLET (FP) PO SCH (10:00)
[2017-12-18] MEDS: amLODIPine BESYLATE 10 MG TABLET (FP) PO SCH (10:06)
[2017-12-18] MEDS: NICOTINE 21 MG/24 HOURS TOPICAL PATCH TD SCH (10:06)
[2017-12-18] MEDS: ASPIRIN 81 MG CHEWABLE TABLETS PO SCH (10:06)
[2017-12-18] MEDS: PRENATAL VITAMINS W/ FOLIC ACID TABLET (FP) PO SCH (10:06)
[2017-12-18] MEDS: ATENOLOL 50 MG TABLET (FP) PO SCH (10:06)
[2017-12-18] MEDS: RANITIDINE HCL 150 MG TABLET (FP) PO SCH ×2 (10:06→22:08)
[2017-12-18] MEDS: THIAMINE HCL 100 MG TABLET (FP) PO SCH (22:08)
[2017-12-19] MEDS: GEMFIBROZIL 600 MG TABLET (FP) PO SCH ×2 (07:00→17:27)
[2017-12-19] MEDS: metFORMIN HCL 500 MG TABLET (FP) PO SCH ×2 (07:00→17:02)
[2017-12-19] MEDS: ASPIRIN 81 MG CHEWABLE TABLETS PO SCH (09:49)
[2017-12-19] MEDS: ATENOLOL 50 MG TABLET (FP) PO SCH (09:49)
[2017-12-19] MEDS: amLODIPine BESYLATE 10 MG TABLET (FP) PO SCH (09:49)
[2017-12-19] MEDS: NICOTINE 21 MG/24 HOURS TOPICAL PATCH TD SCH (09:49)
[2017-12-19] MEDS: RANITIDINE HCL 150 MG TABLET (FP) PO SCH ×2 (09:49→21:09)
[2017-12-19] MEDS: PRENATAL VITAMINS W/ FOLIC ACID TABLET (FP) PO SCH (09:49)
[2017-12-19] MEDS ORDERED: PT OWN MED DRAWER 7, Y5N ONE ×2 (17:04→20:20)
[2017-12-19] MEDS: THIAMINE HCL 100 MG TABLET (FP) PO SCH (21:09)
[2017-12-20] MEDS: GEMFIBROZIL 600 MG TABLET (FP) PO SCH ×2 (07:17→17:05)
[2017-12-20] MEDS: metFORMIN HCL 500 MG TABLET (FP) PO SCH ×2 (07:17→17:04)
[2017-12-20] MEDS: amLODIPine BESYLATE 10 MG TABLET (FP) PO SCH (09:46)
[2017-12-20] MEDS: ASPIRIN 81 MG CHEWABLE TABLETS PO SCH (09:46)
[2017-12-20] MEDS: RANITIDINE HCL 150 MG TABLET (FP) PO SCH ×2 (09:46→21:52)
[2017-12-20] MEDS: NICOTINE 21 MG/24 HOURS TOPICAL PATCH TD SCH (09:46)
[2017-12-20] MEDS: PRENATAL VITAMINS W/ FOLIC ACID TABLET (FP) PO SCH (09:46)
[2017-12-20] MEDS: ATENOLOL 50 MG TABLET (FP) PO SCH (09:46)
[2017-12-20] MEDS ORDERED: INSULIN (NOVOLOG) ASPART 100 UNITS/ML 10ML VIAL ONE (17:08)
[2017-12-20] MEDS: THIAMINE HCL 100 MG TABLET (FP) PO SCH (21:52)
[2017-12-21] MEDS: GEMFIBROZIL 600 MG TABLET (FP) PO SCH ×2 (07:10→16:44)
[2017-12-21] MEDS: metFORMIN HCL 500 MG TABLET (FP) PO SCH ×2 (07:10→16:44)
[2017-12-21] MEDS: ASPIRIN 81 MG CHEWABLE TABLETS PO SCH (10:15)
[2017-12-21] MEDS: RANITIDINE HCL 150 MG TABLET (FP) PO SCH ×2 (10:15→21:38)
[2017-12-21] MEDS: PRENATAL VITAMINS W/ FOLIC ACID TABLET (FP) PO SCH (10:15)
[2017-12-21] MEDS: ATENOLOL 50 MG TABLET (FP) PO SCH (10:15)
[2017-12-21] MEDS: amLODIPine BESYLATE 10 MG TABLET (FP) PO SCH (10:15)
[2017-12-21] MEDS: NICOTINE 21 MG/24 HOURS TOPICAL PATCH TD SCH (10:17)
[2017-12-21] MEDS: THIAMINE HCL 100 MG TABLET (FP) PO SCH (21:38)
[2017-12-22] MEDS: metFORMIN HCL 500 MG TABLET (FP) PO SCH ×2 (06:23→16:56)
[2017-12-22] MEDS: GEMFIBROZIL 600 MG TABLET (FP) PO SCH ×2 (07:16→16:56)
[2017-12-22] MEDS: amLODIPine BESYLATE 10 MG TABLET (FP) PO SCH (09:27)
[2017-12-22] MEDS: ASPIRIN 81 MG CHEWABLE TABLETS PO SCH (09:27)
[2017-12-22] MEDS: PRENATAL VITAMINS W/ FOLIC ACID TABLET (FP) PO SCH (09:27)
[2017-12-22] MEDS: RANITIDINE HCL 150 MG TABLET (FP) PO SCH ×2 (09:27→21:27)
[2017-12-22] MEDS: NICOTINE 21 MG/24 HOURS TOPICAL PATCH TD SCH (09:27)
[2017-12-22] MEDS: ATENOLOL 50 MG TABLET (FP) PO SCH (09:27)
[2017-12-22] MEDS: THIAMINE HCL 100 MG TABLET (FP) PO SCH (21:27)
[2017-12-22] MEDS ORDERED: INSULIN SLIDING SCALE (NOVOLOG) 1 VIAL SQ SCH (22:00)
[2017-12-23] MEDS: GEMFIBROZIL 600 MG TABLET (FP) PO SCH ×2 (07:00→17:25)
[2017-12-23] MEDS: INSULIN SLIDING SCALE (NOVOLOG) 1 VIAL SQ SCH ×2 (07:00→17:25)
[2017-12-23] MEDS: metFORMIN HCL 500 MG TABLET (FP) PO SCH ×2 (07:00→17:25)
[2017-12-23] MEDS: RANITIDINE HCL 150 MG TABLET (FP) PO SCH ×2 (09:50→21:46)
[2017-12-23] MEDS: NICOTINE 21 MG/24 HOURS TOPICAL PATCH TD SCH (09:50)
[2017-12-23] MEDS: ATENOLOL 50 MG TABLET (FP) PO SCH (09:50)
[2017-12-23] MEDS: PRENATAL VITAMINS W/ FOLIC ACID TABLET (FP) PO SCH (09:50)
[2017-12-23] MEDS: amLODIPine BESYLATE 10 MG TABLET (FP) PO SCH (09:50)
[2017-12-23] MEDS: ASPIRIN 81 MG CHEWABLE TABLETS PO SCH (09:50)
[2017-12-23] MEDS ORDERED: INSULIN (NOVOLOG) ASPART 100 UNITS/ML 10ML VIAL ONE ×2 (16:56→17:21)
[2017-12-23] MEDS: THIAMINE HCL 100 MG TABLET (FP) PO SCH (21:46)
[2017-12-24] MEDS: metFORMIN HCL 500 MG TABLET (FP) PO SCH ×2 (06:02→16:52)
[2017-12-24] MEDS ORDERED: INSULIN (NOVOLOG) ASPART 100 UNITS/ML 10ML VIAL ONE (06:04)
[2017-12-24] MEDS: INSULIN SLIDING SCALE (NOVOLOG) 1 VIAL SQ SCH ×2 (06:05→16:52)
[2017-12-24] MEDS: GEMFIBROZIL 600 MG TABLET (FP) PO SCH ×2 (06:40→16:52)
[2017-12-24] MEDS: PRENATAL VITAMINS W/ FOLIC ACID TABLET (FP) PO SCH (10:04)
[2017-12-24] MEDS: RANITIDINE HCL 150 MG TABLET (FP) PO SCH ×2 (10:04→21:32)
[2017-12-24] MEDS: ATENOLOL 50 MG TABLET (FP) PO SCH (10:04)
[2017-12-24] MEDS: amLODIPine BESYLATE 10 MG TABLET (FP) PO SCH (10:04)
[2017-12-24] MEDS: ASPIRIN 81 MG CHEWABLE TABLETS PO SCH (10:04)
[2017-12-24] MEDS: NICOTINE 21 MG/24 HOURS TOPICAL PATCH TD SCH (10:05)
[2017-12-24] MEDS: THIAMINE HCL 100 MG TABLET (FP) PO SCH (21:32)
[2017-12-25] MEDS ORDERED: INSULIN (NOVOLOG) ASPART 100 UNITS/ML 10ML VIAL ONE (07:08)
[2017-12-25] MEDS: INSULIN SLIDING SCALE (NOVOLOG) 1 VIAL SQ SCH ×2 (07:13→16:59)
[2017-12-25] MEDS: GEMFIBROZIL 600 MG TABLET (FP) PO SCH ×2 (07:13→16:58)
[2017-12-25] MEDS: metFORMIN HCL 500 MG TABLET (FP) PO SCH ×2 (07:13→16:58)
[2017-12-25] MEDS: amLODIPine BESYLATE 10 MG TABLET (FP) PO SCH (10:08)
[2017-12-25] MEDS: NICOTINE 21 MG/24 HOURS TOPICAL PATCH TD SCH (10:08)
[2017-12-25] MEDS: PRENATAL VITAMINS W/ FOLIC ACID TABLET (FP) PO SCH (10:08)
[2017-12-25] MEDS: ASPIRIN 81 MG CHEWABLE TABLETS PO SCH (10:08)
[2017-12-25] MEDS: ATENOLOL 50 MG TABLET (FP) PO SCH (10:08)
[2017-12-25] MEDS: RANITIDINE HCL 150 MG TABLET (FP) PO SCH ×2 (10:08→21:38)
[2017-12-25] MEDS: THIAMINE HCL 100 MG TABLET (FP) PO SCH (21:38)
[2017-12-26] MEDS: INSULIN SLIDING SCALE (NOVOLOG) 1 VIAL SQ SCH ×2 (07:12→16:57)
[2017-12-26] MEDS: metFORMIN HCL 500 MG TABLET (FP) PO SCH ×2 (07:12→16:56)
[2017-12-26] MEDS: GEMFIBROZIL 600 MG TABLET (FP) PO SCH ×2 (07:12→16:57)
[2017-12-26] MEDS: RANITIDINE HCL 150 MG TABLET (FP) PO SCH ×2 (10:02→21:33)
[2017-12-26] MEDS: amLODIPine BESYLATE 10 MG TABLET (FP) PO SCH (10:02)
[2017-12-26] MEDS: PRENATAL VITAMINS W/ FOLIC ACID TABLET (FP) PO SCH (10:02)
[2017-12-26] MEDS: NICOTINE 21 MG/24 HOURS TOPICAL PATCH TD SCH (10:02)
[2017-12-26] MEDS: ASPIRIN 81 MG CHEWABLE TABLETS PO SCH (10:02)
[2017-12-26] MEDS: ATENOLOL 50 MG TABLET (FP) PO SCH (10:02)
[2017-12-26] MEDS: THIAMINE HCL 100 MG TABLET (FP) PO SCH (21:33)
[2017-12-26] MEDS ORDERED: SUVOREXANT 10 MG TABLET PO PRN (22:00)
[2017-12-27] MEDS: metFORMIN HCL 500 MG TABLET (FP) PO SCH ×2 (06:21→16:52)
[2017-12-27] MEDS: INSULIN SLIDING SCALE (NOVOLOG) 1 VIAL SQ SCH ×2 (06:23→16:52)
[2017-12-27] MEDS: GEMFIBROZIL 600 MG TABLET (FP) PO SCH ×2 (06:40→16:53)
[2017-12-27] MEDS: RANITIDINE HCL 150 MG TABLET (FP) PO SCH ×2 (10:15→21:16)
[2017-12-27] MEDS: ASPIRIN 81 MG CHEWABLE TABLETS PO SCH (10:15)
[2017-12-27] MEDS: amLODIPine BESYLATE 10 MG TABLET (FP) PO SCH (10:15)
[2017-12-27] MEDS: PRENATAL VITAMINS W/ FOLIC ACID TABLET (FP) PO SCH (10:15)
[2017-12-27] MEDS: ATENOLOL 50 MG TABLET (FP) PO SCH (10:15)
[2017-12-27] MEDS ORDERED: INSULIN (NOVOLOG) ASPART 100 UNITS/ML 10ML VIAL ONE (16:52)
[2017-12-27] MEDS: THIAMINE HCL 100 MG TABLET (FP) PO SCH (21:16)
[2017-12-28] MEDS: metFORMIN HCL 500 MG TABLET (FP) PO SCH ×2 (07:31→17:02)
[2017-12-28] MEDS: INSULIN SLIDING SCALE (NOVOLOG) 1 VIAL SQ SCH ×2 (07:31→17:03)
[2017-12-28] MEDS: GEMFIBROZIL 600 MG TABLET (FP) PO SCH ×2 (07:31→17:02)
[2017-12-28] MEDS ORDERED: INSULIN (NOVOLOG) ASPART 100 UNITS/ML 10ML VIAL ONE (07:32)
[2017-12-28] MEDS: ATENOLOL 50 MG TABLET (FP) PO SCH (10:15)
[2017-12-28] MEDS: amLODIPine BESYLATE 10 MG TABLET (FP) PO SCH (10:15)
[2017-12-28] MEDS: RANITIDINE HCL 150 MG TABLET (FP) PO SCH ×2 (10:15→21:42)
[2017-12-28] MEDS: PRENATAL VITAMINS W/ FOLIC ACID TABLET (FP) PO SCH (10:15)
[2017-12-28] MEDS: ASPIRIN 81 MG CHEWABLE TABLETS PO SCH (10:15)
[2017-12-28] MEDS: THIAMINE HCL 100 MG TABLET (FP) PO SCH (21:42)
[2017-12-28] MEDS: SUVOREXANT 10 MG TABLET PO PRN (21:42)
[2017-12-29] MEDS: metFORMIN HCL 500 MG TABLET (FP) PO SCH ×2 (07:46→17:05)
[2017-12-29] MEDS: GEMFIBROZIL 600 MG TABLET (FP) PO SCH ×2 (07:46→17:05)
[2017-12-29] MEDS: INSULIN SLIDING SCALE (NOVOLOG) 1 VIAL SQ SCH ×2 (07:47→17:06)
[2017-12-29] MEDS ORDERED: INSULIN (NOVOLOG) ASPART 100 UNITS/ML 10ML VIAL ONE (07:47)
[2017-12-29] MEDS: PRENATAL VITAMINS W/ FOLIC ACID TABLET (FP) PO SCH (09:53)
[2017-12-29] MEDS: ATENOLOL 50 MG TABLET (FP) PO SCH (09:53)
[2017-12-29] MEDS: amLODIPine BESYLATE 10 MG TABLET (FP) PO SCH (09:53)
[2017-12-29] MEDS: RANITIDINE HCL 150 MG TABLET (FP) PO SCH ×2 (09:53→21:32)
[2017-12-29] MEDS: ASPIRIN 81 MG CHEWABLE TABLETS PO SCH (09:53)
[2017-12-29] MEDS: THIAMINE HCL 100 MG TABLET (FP) PO SCH (21:32)
[2017-12-29] MEDS: SUVOREXANT 10 MG TABLET PO PRN (21:33)
[2017-12-30] MEDS: metFORMIN HCL 500 MG TABLET (FP) PO SCH ×2 (07:11→16:59)
[2017-12-30] MEDS: GEMFIBROZIL 600 MG TABLET (FP) PO SCH ×2 (07:11→16:59)
[2017-12-30] MEDS: INSULIN SLIDING SCALE (NOVOLOG) 1 VIAL SQ SCH ×2 (07:11→17:00)
[2017-12-30] MEDS ORDERED: INSULIN (NOVOLOG) ASPART 100 UNITS/ML 10ML VIAL ONE (07:13)
[2017-12-30] MEDS: PRENATAL VITAMINS W/ FOLIC ACID TABLET (FP) PO SCH (10:37)
[2017-12-30] MEDS: amLODIPine BESYLATE 10 MG TABLET (FP) PO SCH (10:38)
[2017-12-30] MEDS: ATENOLOL 50 MG TABLET (FP) PO SCH (10:38)
[2017-12-30] MEDS: RANITIDINE HCL 150 MG TABLET (FP) PO SCH ×2 (10:38→21:37)
[2017-12-30] MEDS: ASPIRIN 81 MG CHEWABLE TABLETS PO SCH (10:38)
[2017-12-30] MEDS: hydrOXYzine PAMOATE 50 MG CAPSULE (FP) PO PRN (15:32)
[2017-12-30] MEDS: THIAMINE HCL 100 MG TABLET (FP) PO SCH (21:37)
[2017-12-30] MEDS: SUVOREXANT 10 MG TABLET PO PRN (21:37)
[2017-12-31] MEDS: metFORMIN HCL 500 MG TABLET (FP) PO SCH ×2 (06:22→16:59)
[2017-12-31] MEDS: GEMFIBROZIL 600 MG TABLET (FP) PO SCH ×2 (06:40→16:59)
[2017-12-31] MEDS: INSULIN SLIDING SCALE (NOVOLOG) 1 VIAL SQ SCH ×2 (06:40→17:00)
[2017-12-31] MEDS: ASPIRIN 81 MG CHEWABLE TABLETS PO SCH (10:14)
[2017-12-31] MEDS: RANITIDINE HCL 150 MG TABLET (FP) PO SCH ×2 (10:14→21:46)
[2017-12-31] MEDS: ATENOLOL 50 MG TABLET (FP) PO SCH (10:14)
[2017-12-31] MEDS: PRENATAL VITAMINS W/ FOLIC ACID TABLET (FP) PO SCH (10:14)
[2017-12-31] MEDS: amLODIPine BESYLATE 10 MG TABLET (FP) PO SCH (10:15)
[2017-12-31] MEDS: hydrOXYzine PAMOATE 50 MG CAPSULE (FP) PO PRN ×2 (10:16→21:46)
[2017-12-31] MEDS: SUVOREXANT 10 MG TABLET PO PRN (21:46)
[2017-12-31] MEDS: THIAMINE HCL 100 MG TABLET (FP) PO SCH (21:46)
[2018-01-01] MEDS: GEMFIBROZIL 600 MG TABLET (FP) PO SCH ×2 (07:24→17:01)
[2018-01-01] MEDS: metFORMIN HCL 500 MG TABLET (FP) PO SCH ×2 (07:24→17:01)
[2018-01-01] MEDS: INSULIN SLIDING SCALE (NOVOLOG) 1 VIAL SQ SCH ×2 (07:25→17:02)
[2018-01-01] MEDS ORDERED: INSULIN (NOVOLOG) ASPART 100 UNITS/ML 10ML VIAL ONE (07:25)
[2018-01-01] MEDS: RANITIDINE HCL 150 MG TABLET (FP) PO SCH ×2 (10:22→21:43)
[2018-01-01] MEDS: ATENOLOL 50 MG TABLET (FP) PO SCH (10:22)
[2018-01-01] MEDS: amLODIPine BESYLATE 10 MG TABLET (FP) PO SCH (10:22)
[2018-01-01] MEDS: ASPIRIN 81 MG CHEWABLE TABLETS PO SCH (10:22)
[2018-01-01] MEDS: PRENATAL VITAMINS W/ FOLIC ACID TABLET (FP) PO SCH (10:22)
[2018-01-01] MEDS: SUVOREXANT 10 MG TABLET PO PRN (21:43)
[2018-01-01] MEDS: THIAMINE HCL 100 MG TABLET (FP) PO SCH (21:43)
[2018-01-02] MEDS: INSULIN SLIDING SCALE (NOVOLOG) 1 VIAL SQ SCH ×2 (07:04→17:03)
[2018-01-02] MEDS: metFORMIN HCL 500 MG TABLET (FP) PO SCH ×2 (07:04→17:00)
[2018-01-02] MEDS: GEMFIBROZIL 600 MG TABLET (FP) PO SCH ×2 (07:04→17:00)
[2018-01-02] MEDS ORDERED: INSULIN (NOVOLOG) ASPART 100 UNITS/ML 10ML VIAL ONE (07:05)
[2018-01-02] MEDS: RANITIDINE HCL 150 MG TABLET (FP) PO SCH ×2 (10:20→21:35)
[2018-01-02] MEDS: ASPIRIN 81 MG CHEWABLE TABLETS PO SCH (10:20)
[2018-01-02] MEDS: ATENOLOL 50 MG TABLET (FP) PO SCH (10:20)
[2018-01-02] MEDS: amLODIPine BESYLATE 10 MG TABLET (FP) PO SCH (10:20)
[2018-01-02] MEDS: PRENATAL VITAMINS W/ FOLIC ACID TABLET (FP) PO SCH (10:20)
[2018-01-02] MEDS: THIAMINE HCL 100 MG TABLET (FP) PO SCH (21:34)
[2018-01-02] MEDS: SUVOREXANT 10 MG TABLET PO PRN (21:34)
[2018-01-03] MEDS: GEMFIBROZIL 600 MG TABLET (FP) PO SCH ×2 (07:19→17:35)
[2018-01-03] MEDS: INSULIN SLIDING SCALE (NOVOLOG) 1 VIAL SQ SCH ×2 (07:19→17:36)
[2018-01-03] MEDS: metFORMIN HCL 500 MG TABLET (FP) PO SCH ×2 (07:19→17:35)
[2018-01-03] MEDS ORDERED: INSULIN (NOVOLOG) ASPART 100 UNITS/ML 10ML VIAL ONE ×2 (07:20→17:10)
[2018-01-03] MEDS: RANITIDINE HCL 150 MG TABLET (FP) PO SCH ×2 (10:01→22:06)
[2018-01-03] MEDS: PRENATAL VITAMINS W/ FOLIC ACID TABLET (FP) PO SCH (10:01)
[2018-01-03] MEDS: ASPIRIN 81 MG CHEWABLE TABLETS PO SCH (10:01)
[2018-01-03] MEDS: amLODIPine BESYLATE 10 MG TABLET (FP) PO SCH (10:01)
[2018-01-03] MEDS: ATENOLOL 50 MG TABLET (FP) PO SCH (10:01)
[2018-01-03] MEDS ORDERED: SUVOREXANT 10 MG TABLET PO PRN (22:00)
[2018-01-03] MEDS: THIAMINE HCL 100 MG TABLET (FP) PO SCH (22:06)
[2018-01-04] MEDS: metFORMIN HCL 500 MG TABLET (FP) PO SCH ×2 (06:31→16:57)
[2018-01-04] MEDS: GEMFIBROZIL 600 MG TABLET (FP) PO SCH ×2 (06:31→16:57)
[2018-01-04] MEDS: INSULIN SLIDING SCALE (NOVOLOG) 1 VIAL SQ SCH ×2 (06:33→17:06)
[2018-01-04] MEDS ORDERED: INSULIN (NOVOLOG) ASPART 100 UNITS/ML 10ML VIAL ONE ×2 (06:38→17:07)
[2018-01-04] MEDS: ATENOLOL 50 MG TABLET (FP) PO SCH (10:17)
[2018-01-04] MEDS: RANITIDINE HCL 150 MG TABLET (FP) PO SCH ×2 (10:17→21:43)
[2018-01-04] MEDS: amLODIPine BESYLATE 10 MG TABLET (FP) PO SCH (10:17)
[2018-01-04] MEDS: ASPIRIN 81 MG CHEWABLE TABLETS PO SCH (10:17)
[2018-01-04] MEDS: PRENATAL VITAMINS W/ FOLIC ACID TABLET (FP) PO SCH (10:17)
[2018-01-04] MEDS: THIAMINE HCL 100 MG TABLET (FP) PO SCH (21:43)
[2018-01-05] MEDS ORDERED: INSULIN (NOVOLOG) ASPART 100 UNITS/ML 10ML VIAL ONE ×2 (06:24→17:07)
[2018-01-05] MEDS: metFORMIN HCL 500 MG TABLET (FP) PO SCH ×2 (06:24→17:08)
[2018-01-05] MEDS: INSULIN SLIDING SCALE (NOVOLOG) 1 VIAL SQ SCH ×2 (06:25→17:09)
[2018-01-05] MEDS: GEMFIBROZIL 600 MG TABLET (FP) PO SCH ×2 (06:49→17:08)
[2018-01-05] MEDS: amLODIPine BESYLATE 10 MG TABLET (FP) PO SCH (10:10)
[2018-01-05] MEDS: ASPIRIN 81 MG CHEWABLE TABLETS PO SCH (10:10)
[2018-01-05] MEDS: PRENATAL VITAMINS W/ FOLIC ACID TABLET (FP) PO SCH (10:10)
[2018-01-05] MEDS: RANITIDINE HCL 150 MG TABLET (FP) PO SCH ×2 (10:10→21:58)
[2018-01-05] MEDS: ATENOLOL 50 MG TABLET (FP) PO SCH (10:10)
[2018-01-05] MEDS: THIAMINE HCL 100 MG TABLET (FP) PO SCH (21:58)
[2018-01-06] MEDS ORDERED: SUVOREXANT 10 MG TABLET PO PRN (06:27)
[2018-01-06] MEDS: GEMFIBROZIL 600 MG TABLET (FP) PO SCH ×2 (06:30→16:46)
[2018-01-06] MEDS: metFORMIN HCL 500 MG TABLET (FP) PO SCH ×2 (06:30→16:46)
[2018-01-06] MEDS ORDERED: INSULIN (NOVOLOG) ASPART 100 UNITS/ML 10ML VIAL ONE ×2 (06:32→16:46)
[2018-01-06] MEDS: INSULIN SLIDING SCALE (NOVOLOG) 1 VIAL SQ SCH ×2 (06:33→16:45)
[2018-01-06] MEDS: PRENATAL VITAMINS W/ FOLIC ACID TABLET (FP) PO SCH (10:01)
[2018-01-06] MEDS: ASPIRIN 81 MG CHEWABLE TABLETS PO SCH (10:01)
[2018-01-06] MEDS: RANITIDINE HCL 150 MG TABLET (FP) PO SCH ×2 (10:01→21:36)
[2018-01-06] MEDS: ATENOLOL 50 MG TABLET (FP) PO SCH (10:01)
[2018-01-06] MEDS: amLODIPine BESYLATE 10 MG TABLET (FP) PO SCH (10:02)
--- NOTE | 2018-01-06 14:07 | PN ---
Psychiatric Progress Note Vital Signs: Vital Signs Period Temp Pulse Resp BP Sys/Torrez Pulse Ox Last 24 Hr 97.9 F 84-99 18-18 137-149/86-89 Date of Session: 01/06/18 Chief Complaint:: Discharge Note HPI: Patient addressing Alcohol Dependence comorbid with Alcohol-Induce Sleep Disorder ROS: HTN, HLD, DM, CAD/MS, PPD+ treated, Seizure were medically managed Current Medications: Active Medications Generic Name Dose Route Start Last Admin Trade Name Freq PRN Reason Stop Dose Admin Acetaminophen 650 mg 12/16/17 16:57 Tylenol - PO Q4H PRN FEVER Al Hydroxide/Mg Hydroxide 30 ml 12/16/17 16:57 Mylanta Oral Suspension - PO Q6H PRN DYSPEPSIA Amlodipine Besylate 10 mg 12/18/17 10:00 01/06/18 10:02 Norvasc - PO 10 mg DAILY GIACOMO Administration Aspirin 81 mg 12/18/17 10:00 01/06/18 10:01 Asa - PO 81 mg DAILY GIACOMO Administration Atenolol 50 mg 12/18/17 10:00 01/06/18 10:01 Tenormin - PO 50 mg DAILY GIACOMO Administration Eucalyptus/Menthol/Phenol/Sorbitol 1 each 12/16/17 16:57 Cepastat Lozenge - MM Q4H PRN SORE THROAT Gemfibrozil 600 mg 12/18/17 07:30 01/06/18 06:30 Lopid - PO 600 mg BID@0730,1700 GIACOMO Administration Guaifenesin 10 ml 12/16/17 16:57 Robitussin Dm - PO Q6H PRN COUGH Hydroxyzine Pamoate 50 mg 12/16/17 16:57 12/31/17 21:46 Vistaril - PO 50 mg Q4H PRN Administration AGITATION Insulin Aspart 1 vial 12/23/17 07:00 01/06/18 06:33 Novolog Vial Sliding Scale - SQ 2 units BIDAC GIACOMO Administration Protocol Loperamide HCl 4 mg 12/16/17 16:57 Imodium - PO Q6H PRN DIARRHEA Magnesium Citrate 300 ml 12/16/17 16:57 Citroma - PO Q48H PRN CONSTIPATION Magnesium Hydroxide 30 ml 12/16/17 16:57 Milk Of Magnesia - PO DAILY PRN CONSTIPATION Metformin HCl 500 mg 12/18/17 07:00 01/06/18 06:30 Glucophage - PO 500 mg BID@0700,1630 GIACOMO Administration Multivit/Folic Acid/Iron 1 tab 12/17/17 10:00 01/06/18 10:01 Vitamins (Sjr) - PO 1 tab DAILY GIACOMO Administration Pseudoephedrine/Triprolidine 1 combo 12/16/17 16:57 Actifed - PO TID PRN NASAL CONGESTION Ranitidine HCl 150 mg 12/18/17 10:00 01/06/18 10:01 Zantac - PO 150 mg BID GIACOMO Administration Thiamine HCl 100 mg 12/16/17 22:00 01/05/18 21:58 Vitamin B1 - PO 100 mg HS GIACOMO Administration Current Side Effect: No Lab tests ordered: Yes Lab tests reviewed: Yes Provider note:: Patient has completed this program. 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 He responded well to Belsomra as needed for insomnia. He is stable for discharge on 01/07/18 Total face to face time:: 35 Mental Status Exam - Mental Status Exam Alert and Oriented to: Time, Place, Person Cognitive Function: Fair Patient Appearance: Well Groomed Mood: Hopeful, Euthymic Affect: Appropriate Patient Behavior: Cooperative Speech Pattern: Clear Voice Loudness: Normal Thought Process: Intact, Goal Oriented Thought Disorder: Not Present Hallucinations: Denies Suicidal Ideation: Denies Homicidal Ideation: Denies Insight/Judgement: Fair Sleep: Fair Appetite: Good Muscle strength/Tone: Normal Gait/Station: Normal Psychiatric Treatment Plan - Problem List (1) Alcohol dependence Current Visit: Yes (2) Alcohol-induced sleep disorder Current Visit: Yes (3) Diabetes mellitus treated with oral medication Current Visit: No (4) Essential (primary) hypertension Current Visit: No (5) Hx of coronary artery disease Current Visit: No (6) Hyperlipemia Current Visit: No Qualifiers: Hyperlipidemia type: pure hypercholesterolemia Qualified Code(s): E78.00 - Pure hypercholesterolemia, unspecified; E78.0 - Pure hypercholesterolemia (7) Obesity (BMI 30-39.9) Current Visit: No (8) PPD positive, treated Current Visit: No Comment: cxr 02/2017 normal (9) Seizure disorder Current Visit: No Initial treatment plan: Patient will be discharged tomorrow and referred to [facility] for snf residential treatment
[2018-01-06] MEDS: THIAMINE HCL 100 MG TABLET (FP) PO SCH (21:36)
[2018-01-07 06:59] VITALS: BP 126/82; PULSE 83; TEMP 98.2
[2018-01-07] MEDS: INSULIN SLIDING SCALE (NOVOLOG) 1 VIAL SQ SCH (07:17)
[2018-01-07] MEDS: GEMFIBROZIL 600 MG TABLET (FP) PO SCH (07:17)
[2018-01-07] MEDS: metFORMIN HCL 500 MG TABLET (FP) PO SCH (07:17)
[2018-01-07] MEDS ORDERED: INSULIN (NOVOLOG) ASPART 100 UNITS/ML 10ML VIAL ONE (07:18)
[2018-01-07] MEDS: RANITIDINE HCL 150 MG TABLET (FP) PO SCH (09:16)
[2018-01-07] MEDS: amLODIPine BESYLATE 10 MG TABLET (FP) PO SCH (09:16)
[2018-01-07] MEDS: ATENOLOL 50 MG TABLET (FP) PO SCH (09:16)
[2018-01-07] MEDS: ASPIRIN 81 MG CHEWABLE TABLETS PO SCH (09:17)
[2018-01-07] MEDS: PRENATAL VITAMINS W/ FOLIC ACID TABLET (FP) PO SCH (09:17)
== END 2018-01-07 09:45 | disposition home or self-care (01) | DRG 58 ==
LOC: YASAS 15:12 → Y3W 15:15
PROVIDERS: ADMIT Psychiatry & Neurology Psychiatry; ATTEND Psychiatry & Neurology Psychiatry
PROC: HZ42ZZZ Group Counseling for Substance Abuse Treatment, Cognitive-Behavioral (ICD-10-PCS; principal; 2017-12-16)
DX: F10.282 Alcohol dependence with alcohol-induced sleep disorder (principal); I10 Essential (primary) hypertension; I25.2 Old myocardial infarction; I25.10 Atherosclerotic heart disease of native coronary artery without angina pectoris; E11.9 Type 2 diabetes mellitus without complications; E78.5 Hyperlipidemia, unspecified; E66.9 Obesity, unspecified; Z68.35 Body mass index [BMI] 35.0-35.9, adult; R76.11 Nonspecific reaction to tuberculin skin test without active tuberculosis; G40.909 Epilepsy, unspecified, not intractable, without status epilepticus; Z79.4 Long term (current) use of insulin; Z79.84 Long term (current) use of oral hypoglycemic drugs
CPT/HCPCS: 82962

== ENCOUNTER 2018-03-24 10:29 | Inpatient (IN) | payer OTHER ==
[2018-03-24 10:45] VITALS: BMI 43.9
--- NOTE | 2018-03-24 11:01 | HP ---
CIWA Score - CIWA Score Nausea/Vomitin Muscle Tremors: 3 Anxiety: 3 Agitation: 3 Paroxysmal Sweats: 1-Minimal Palms Moist Orientation: 0-Oriented Tacttile Disturbances: 1-Very Mild Itch/Numbness Auditory Disturbances: 1-Very Mild Visual Disturbances: 1-Very Mild Sensitivity Headache: 2-Mild CIWA-Ar Total Score: 18 Admission ROS BHS - HPI Chief Complaint: i need help to stop drinking alcohol Allergies/Adverse Reactions: Allergies Allergy/AdvReac Type Severity Reaction Status Date / Time RASHAD Inhibitors Allergy Severe Swelling Verified 03/24/18 13:12 lisinopril Allergy Severe Swelling Verified 03/24/18 13:12 History of Present Illness: this 53 years old male with alcohol dependence,seeking detox,last detox [facility] 12/16/17 to 01/07/18 htn and type 2 dm no significant period of sobriety Exam Limitations: No Limitations - Ebola screening Have you traveled outside of the country in the last 21 days: No (N) Have you had contact with anyone from an Ebola affected area: No Have you been sick,other than usual withdrawal symptoms: No Do you have a fever: No - Review of Systems Constitutional: Loss of Appetite, Night Sweats, Changes in sleep, Weakness EENT: reports: Nose Congestion Respiratory: reports: No Symptoms reported Cardiac: reports: No Symptoms Reported GI: reports: Nausea, Abdominal cramping : reports: No Symptoms Reported Musculoskeletal: reports: Back Pain, Muscle Pain Integumentary: reports: Dryness Neuro: reports: Headache, Tremors Endocrine: reports: No Symptoms Reported Hematology: reports: No Symptoms Reported Psychiatric: reports: No Sypmtoms Reported, Judgement Intact, Mood/Affect Appropiate Patient History - Patient Medical History Hx Anemia: No Hx Asthma: No Hx Chronic Obstructive Pulmonary Disease (COPD): No Hx Cancer: No Hx Cardiac Disorders: Yes Hx Congestive Heart Failure: No Hx Hypertension: Yes (non compliance) Hx Hypercholesterolemia: Yes (no med) Hx Pacemaker: No HX Cerebrovascular Accident: No Hx Seizures: No Hx Dementia: No Hx Diabetes: Yes (non compliance) Hx Gastrointestinal Disorders: No Hx Liver Disease: No Hx Genitourinary Disorders: No Hx Sexually Transmitted Disorders: No Hx Renal Disease (ESRD): No Hx Thyroid Disease: No Hx Human Immunodeficiency Virus (HIV): No Hx Hepatitis C: No Hx Depression: No Hx Suicide Attempt: No Hx Bipolar Disorder: No Hx Schizophrenia: No Other Medical History: no suicidal,no homicidal - Patient Surgical History Past Surgical History: No Hx Neurologic Surgery: No Hx Cataract Extraction: No Hx Cardiac Surgery: No Hx Lung Surgery: No Hx Breast Surgery: No Hx Breast Biopsy: No Hx Abdominal Surgery: No Hx Appendectomy: No Hx Cholecystectomy: No Hx Genitourinary Surgery: Yes (left kidney stone 2015) Hx Section: No Hx Orthopedic Surgery: No Other Surgical History: left kidney stone removed 11/2015 Anesthesia Reaction: No - PPD History Results: CX-ray 02/2017 - Smoking Cessation Smoking history: Former smoker Have you smoked in the past 12 months: No Aproximately how many cigarettes per day: 1 If you are a former smoker, when did you quit?: STOPPED "IN MY TEENS" Cigars Per Day: 0 Hx Chewing Tobacco Use: No Initiated information on smoking cessation: Yes 'Breaking Loose' booklet given: 03/24/18 - Substance & Tx. History Hx Alcohol Use: Yes Hx Substance Use: No Substance Use Type: Alcohol Hx Substance Use Treatment: Yes ([facility] 12/12/17 [facility] 12/16/17 to 01/07/18) - Substances Abused Alcohol Route: Oral Frequency: Daily Amount used: 1 pint of vodka/5 of 24 ozs of beer Age of first use: 19 Date of Last Use: 03/25/18 Family Disease History - Family Disease History Family Disease History: Heart Disease: Mother (HTN), Other: Father (Alcohol), Mother, Brother (Alcohol) Admission Physical Exam S - Vital Signs Vital Signs: Vital Signs - 24 hr 03/24/18 10:42 Temperature 96.6 F L Pulse Rate 88 Respiratory 19 Rate Blood Pressure 148/88 - Physical General Appearance: Yes: Moderate Distress, Tremorous, Irritable, Sweating, Anxious HEENTM: Yes: Normal ENT Inspection, FIDEL, Pharynx Normal Respiratory: Yes: Within Normal Limits, Lungs Clear, Normal Breath Sounds Neck: Yes: Within Normal Limits, Supple, Trachea in good position Breast: Yes: Within Normal Limits Cardiology: Yes: Within Normal Limits, Regular Rhythm, Regular Rate, S1, S2 Abdominal: Yes: Within Normal Limits, Normal Bowel Sounds, Non Tender, Soft Genitourinary: Yes: Within Normal Limits Back: Yes: Muscle Spasm Musculoskeletal: Yes: Back pain, Muscle Pain Extremities: Yes: Tremors Neurological: Yes: tenter feeder II-XII NML intact, Fully Oriented, Alert, Motor Strength 5/5 Integumentary: Yes: Dry Lymphatic: Yes: Within Normal Limits - Diagnostic (1) Alcohol dependence with uncomplicated withdrawal Current Visit: No Status: Acute (2) Essential (primary) hypertension Current Visit: No Status: Chronic (3) Hx of coronary artery disease Current Visit: No Status: Chronic (4) Hyperlipemia Current Visit: No Status: Chronic Qualifiers: Hyperlipidemia type: pure hypercholesterolemia Qualified Code(s): E78.00 - Pure hypercholesterolemia, unspecified; E78.0 - Pure hypercholesterolemia (5) Obesity (BMI 30-39.9) Current Visit: No Status: Chronic (6) PPD positive, treated Current Visit: No Status: Chronic Comment: cxr 02/2017 normal Cleared for Admission [facility] - Detox or Rehab [facility] Level of Care: Medically Managed Detox Regimen/Protocol: Valium [facility] Breath Alcohol Content Breath Alcohol Content: 0.158 Urine Drug Screen - Results Drug Screen Negative: No Urine Drug Screen Results: BZO-Benzodiazepines
[2018-03-24] MEDS ORDERED: diazePAM 5 MG TABLET PO ONE (11:16)
[2018-03-24] MEDS ORDERED: ACETAMINOPHEN 325 MG TABLET (FP) PO PRN (11:16)
[2018-03-24] MEDS ORDERED: MAG HYDROX/AL HYDROX/SIMETH 30 ML UNIT-DOSE CUP PO PRN (11:16)
[2018-03-24] MEDS ORDERED: IBUPROFEN 400 MG TABLET (FP) PO PRN (11:16)
[2018-03-24] MEDS ORDERED: hydrOXYzine PAMOATE 50 MG CAPSULE (FP) PO PRN (11:16)
[2018-03-24] MEDS ORDERED: MAGNESIUM HYDROX 2400MG/30ML ORAL SUSPENSION 30 ML CUP PO PRN (11:16)
[2018-03-24] MEDS ORDERED: MENTHOL/PHENOL 1 EACH UD MM PRN (11:16)
[2018-03-24] MEDS ORDERED: MAGNESIUM CITRATE 300 ML BOTTLE PO PRN (11:16)
[2018-03-24] MEDS ORDERED: P-EPHED 60MG/TRIPROLIDI 2.5MG TABLET PO PRN (11:16)
[2018-03-24] MEDS ORDERED: guaiFENesin/D-METHORPHAN HB 10 ML UNIT-DOSE CUPS PO PRN (11:16)
[2018-03-24] MEDS ORDERED: LOPERAMIDE HCL 2 MG CAPSULE PO PRN (11:16)
--- NOTE | 2018-03-24 11:19 | PN ---
[facility] Progress Note Note: patient requested valium regimen not librium
[2018-03-24] MEDS: diazePAM 5 MG TABLET PO PRN (14:06)
[2018-03-24 17:45] LABS: URINE APPEARANCE CLEAR; URINE BILIRUBIN NEGATIVE (<2.0 mg/dL); URINE COLOR LTYELLOW; URINE GLUCOSE (UA) NEGATIVE (NEGATIVE); URINE KETONE NEGATIVE (NEGATIVE); URINE LEUK ESTERASE NEGATIVE (NEGATIVE); URINE NITRITE NEGATIVE (NEGATIVE); URINE UROBILINOGEN NEGATIVE mg/dL (0.2-1.0)
[2018-03-24 17:54] LABS: URINE PROTEIN 2+ (NEGATIVE)
[2018-03-24 17:56] LABS: EPI CELLS RARE /HPF (FEW); URINE BACTERIA RARE /hpf (NONE SEEN); URINE MUCUS RARE
[2018-03-24] MEDS: metFORMIN HCL 500 MG TABLET (FP) PO SCH (19:09)
[2018-03-24] MEDS ORDERED: MELATONIN 5 MG TABLETS PO PRN (22:00)
[2018-03-24] MEDS: THIAMINE HCL 100 MG TABLET (FP) PO SCH (22:26)
[2018-03-24] MEDS: diazePAM 5 MG TABLET PO SCH (22:26)
[2018-03-24] MEDS: ATORVASTATIN CA 40 MG TABLET (FP) PO SCH (22:26)
[2018-03-25] MEDS: diazePAM 5 MG TABLET PO SCH ×3 (05:23→22:11)
[2018-03-25] MEDS: metFORMIN HCL 500 MG TABLET (FP) PO SCH ×2 (07:30→17:26)
--- NOTE | 2018-03-25 08:51 | EKG ---
Test Reason : Blood Pressure : / mmHG Vent. Rate : 082 BPM Atrial Rate : 082 BPM P-R Int : 178 ms QRS Dur : 096 ms QT Int : 410 ms P-R-T Axes : 046 024 090 degrees QTc Int : 479 ms NORMAL SINUS RHYTHM POSSIBLE LEFT ATRIAL ENLARGEMENT SEPTAL INFARCT , AGE UNDETERMINED ABNORMAL ECG WHEN COMPARED WITH ECG OF 12-DEC-2017 14:53, NO SIGNIFICANT CHANGE WAS FOUND Confirmed by NETTE EATON MD ([id number]) on 03/25/2018 8:51:37 AM Referred By: Confirmed By:NETTE EATON MD
[2018-03-25] MEDS: PRENATAL VITAMINS W/ FOLIC ACID TABLET (FP) PO SCH (10:08)
[2018-03-25] MEDS: amLODIPine BESYLATE 10 MG TABLET (FP) PO SCH (10:08)
[2018-03-25] MEDS: diazePAM 5 MG TABLET PO PRN (10:10)
--- NOTE | 2018-03-25 11:09 | PN ---
S CIWA - CIWA Score Nausea/Vomitin-No Nausea/No Vomiting Muscle Tremors: 4-Moderate,w/Arms Extend Anxiety: 4-Mod. Anxious/Guarded Agitation: 4-Moderately Restless Paroxysmal Sweats: 1-Minimal Palms Moist Orientation: 0-Oriented Tacttile Disturbances: 0-None Auditory Disturbances: 0-None Visual Disturbances: 0-None Headache: 0-None Present CIWA-Ar Total Score: 13 B[facility] Progress Note (SOAP) Subjective: ANXIETY,SWEATS,NAUSEA, FATIGUE. Objective: 03/25/18 11:08 Vital Signs 03/25/18 03/25/18 06:18 09:14 Temperature 98.8 F 98.7 F Pulse Rate 88 91 H Respiratory 20 20 Rate Blood Pressure 148/91 148/88 Laboratory Tests 03/24/18 03/24/18 03/24/18 13:34 16:18 Unknown POC Glucometer 155 229 Urine Color Ltyellow Urine Appearance Clear Urine pH 5.0 Ur Specific [place] 1.020 Urine Protein 2+ H Urine Glucose (UA) Negative Urine Ketones Negative Urine Blood 1+ H Urine Nitrite Negative Urine Bilirubin Negative Urine Urobilinogen Negative Ur Leukocyte Esterase Negative Urine WBC (Auto) 1 Urine RBC (Auto) 7 Ur Epithelial Cells Rare Urine Bacteria Rare Urine Mucus Rare 03/25/18 05:23 POC Glucometer 185 Urine Color Urine Appearance Urine pH Ur Specific [place] Urine Protein Urine Glucose (UA) Urine Ketones Urine Blood Urine Nitrite Urine Bilirubin Urine Urobilinogen Ur Leukocyte Esterase Urine WBC (Auto) Urine RBC (Auto) Ur Epithelial Cells Urine Bacteria Urine Mucus OTHER LABS PENDING Assessment: 03/25/18 11:08 WITHDRAWAL SX Plan: CONTINUE DETOX ALAN MALDONADO PRN
[2018-03-25 11:17] LABS: HEMATOCRIT 36.6 % (35.4-49); MCH 29.5 pg (25.7-33.7); MCHC 35.4 g/dl (32.0-35.9); MEAN CELL VOLUME 83.4 fl (80-96); MEAN PLT VOLUME 7.3 fl (7.5-11.1); PLATELET COUNT 199 K/MM3 (134-434); RBC 4.39 M/mm3 (4.00-5.60); RDW 16.7 % (11.9-15.9); WHITE BLOOD COUNT 4.1 K/mm3 (4.0-10.0)
[2018-03-25] MEDS ORDERED: ONDANSETRON *ODT* 4 MG TABLET SL PRN (11:34)
[2018-03-25 11:36] LABS: ALBUMIN 3.3 g/dl (3.4-5.0); ALK PHOS 108 U/L (45-117); ANION GAP 11 (8-16); BILIRUBIN,TOTAL 0.5 mg/dL (0.2-1.0); CALCIUM 7.2 mg/dL (8.5-10.1); CHLORIDE 99 mmol/L (98-107); CO2 25 mmol/L (21-32); CREATININE 0.7 mg/dL (0.7-1.3); SODIUM 135 mmol/L (136-145)
[2018-03-25 11:44] LABS: BLOOD UREA NITROGEN 13 mg/dL (7-18); GLUCOSE,RANDOM 188 mg/dL (74-106)
[2018-03-25 11:45] LABS: POTASSIUM 3.5 mmol/L (3.5-5.1); SGOT/AST 138 U/L (15-37); SGPT/ALT 78 U/L (12-78); TOT PROT 7.9 g/dl (6.4-8.2)
[2018-03-25] MEDS: ATORVASTATIN CA 40 MG TABLET (FP) PO SCH (22:11)
[2018-03-25] MEDS: THIAMINE HCL 100 MG TABLET (FP) PO SCH (22:11)
[2018-03-26] MEDS: diazePAM 5 MG TABLET PO PRN (05:57)
[2018-03-26] MEDS: metFORMIN HCL 500 MG TABLET (FP) PO SCH ×2 (06:21→17:30)
--- NOTE | 2018-03-26 10:08 | PN ---
S CIWA - CIWA Score Nausea/Vomitin-No Nausea/No Vomiting Muscle Tremors: 4-Moderate,w/Arms Extend Anxiety: 5 Agitation: 3 Paroxysmal Sweats: 1-Minimal Palms Moist Orientation: 0-Oriented Tacttile Disturbances: 0-None Auditory Disturbances: 0-None Visual Disturbances: 0-None Headache: 0-None Present CIWA-Ar Total Score: 13 BHS Progress Note (SOAP) Subjective: PT C/O ANXIETY,SWEATS,FATIGUE,TREMORS. REQUESTING PSYCH EVALUATION FOR ANXIETY AND PANIC ATTACKS. ALERT O X 3. DENIES S/I. PT DENIED PSYCH ON ADMISSION. Objective: 03/26/18 10:05 Vital Signs 03/26/18 03/26/18 03/26/18 03:30 06:19 06:30 Temperature 98.5 F Pulse Rate 88 Respiratory 18 18 18 Rate Blood Pressure 132/80 03/26/18 09:22 Temperature 97.6 F Pulse Rate 121 H Respiratory 20 Rate Blood Pressure 150/96 Laboratory Tests 03/24/18 03/24/18 03/24/18 13:34 16:18 Unknown WBC RBC Hgb Hct MCV MCH MCHC RDW Plt Count MPV Sodium Potassium Chloride Carbon Dioxide Anion Gap BUN Creatinine Creat Clearance w eGFR POC Glucometer 155 229 Random Glucose Calcium Total Bilirubin AST ALT Alkaline Phosphatase Total Protein Albumin Urine Color Ltyellow Urine Appearance Clear Urine pH 5.0 Ur Specific [place] 1.020 Urine Protein 2+ H Urine Glucose (UA) Negative Urine Ketones Negative Urine Blood 1+ H Urine Nitrite Negative Urine Bilirubin Negative Urine Urobilinogen Negative Ur Leukocyte Esterase Negative Urine WBC (Auto) 1 Urine RBC (Auto) 7 Ur Epithelial Cells Rare Urine Bacteria Rare Urine Mucus Rare RPR Titer 03/25/18 03/25/18 03/25/18 05:23 07:00 07:00 WBC 4.1 RBC 4.39 Hgb 13.0 Hct 36.6 MCV 83.4 MCH 29.5 MCHC 35.4 RDW 16.7 H Plt Count 199 MPV 7.3 L Sodium 135 L Potassium 3.5 Chloride 99 Carbon Dioxide 25 Anion Gap 11 BUN 13 Creatinine 0.7 Creat Clearance w eGFR > 60 POC Glucometer 185 Random Glucose 188 H Calcium 7.2 L Total Bilirubin 0.5 AST 138 H D ALT 78 Alkaline Phosphatase 108 D Total Protein 7.9 Albumin 3.3 L Urine Color Urine Appearance Urine pH Ur Specific [place] Urine Protein Urine Glucose (UA) Urine Ketones Urine Blood Urine Nitrite Urine Bilirubin Urine Urobilinogen Ur Leukocyte Esterase Urine WBC (Auto) Urine RBC (Auto) Ur Epithelial Cells Urine Bacteria Urine Mucus RPR Titer 03/25/18 03/25/18 03/26/18 07:00 16:18 05:56 WBC RBC Hgb Hct MCV MCH MCHC RDW Plt Count MPV Sodium Potassium Chloride Carbon Dioxide Anion Gap BUN Creatinine Creat Clearance w eGFR POC Glucometer 180 223 Random Glucose Calcium Total Bilirubin AST ALT Alkaline Phosphatase Total Protein Albumin Urine Color Urine Appearance Urine pH Ur Specific [place] Urine Protein Urine Glucose (UA) Urine Ketones Urine Blood Urine Nitrite Urine Bilirubin Urine Urobilinogen Ur Leukocyte Esterase Urine WBC (Auto) Urine RBC (Auto) Ur Epithelial Cells Urine Bacteria Urine Mucus RPR Titer Nonreactive Assessment: 03/26/18 10:06 WITHDRAWAL SX Plan: CONTINUE DETOX FOLLOW UP WITH PSYCH EVALUATION TODAY.
[2018-03-26] MEDS: PRENATAL VITAMINS W/ FOLIC ACID TABLET (FP) PO SCH (10:31)
[2018-03-26] MEDS: diazePAM 5 MG TABLET PO SCH ×2 (10:31→22:15)
[2018-03-26] MEDS: amLODIPine BESYLATE 10 MG TABLET (FP) PO SCH (11:31)
--- NOTE | 2018-03-26 15:03 | CONSULT ---
[facility] Psychiatric Consult - Data Date of interview: 03/26/18 Admission source: [facility] Identifying data: Readmission to [facility] for this 53 y/o AA male seeking detox treatment on for alcohol dependence.Patient is single without children,homeless (nursing home),unemployed and supported on food stamps. Substance Abuse History: Confirmed by patient in this interview.Smoking history : Former smoker. Have you smoked in the past 12 months: No. Aproximately how many cigarettes per day: 1. If you are a former smoker, when did you quit?: STOPPED "IN MY TEENS". Cigars Per Day: 0. Hx Chewing Tobacco Use: No. Initiated information on smoking cessation: Yes. 'Breaking Loose' booklet given : 03/24/18. - Substance & Tx. History. Hx Alcohol Use: Yes. Hx Substance Use : No. Substance Use Type: Alcohol. Hx [facility]). - Substances Abused. Alcohol. Route: Oral. Frequency: Daily. Amount used: 1 pint of vodka/5 of 24 ozs of beer. Age of first use: 19. Date of Last Use: 03/25/18 Medical History: Medical co-morbidities : obesity,arthritis,antecedent of withdrawal-related seizures,hypertension,dyslipidemia,diabetes mellitus, coronary artery disease and past history of myocardial infarction (2003).Noted history of + PPD and nephrolithiasis (lithototomy : left kidney in 2016). Psychiatric History: Patient is a bizarre,easily distracted and disorganized historian.Denies history of psychiatric hospitalizations but he endorses a three week stay at [facility] (psychiatric hospitalization versus admission to inpatient rehabilitation : still unclear).Indicates that, at the time, he was diagnosed with Panic Disorder and MDD.Prescribed sertraline (stopped due to sexual side effects).Also known to [facility].Mr Jade has been lost to follow up for several weeks." I don't take medications because they cause problems." Patient denies history of suicide attempts.Noted report of a previous elopement from [facility]- (2015). Physical/Sexual Abuse/Trauma History: No reported history of suicide attempts. Additional Comment: Urine Drug Screen Results: BZO-Benzodiazepines.Noted. Mental Status Exam - Mental Status Exam Alert and Oriented to: Time, Place, Person Cognitive Function: Good Patient Appearance: Unkempt (poor oral hygiene), Disheveled Mood: Withdrawn (neutral) Affect: Inappropriate (as evidence by bursts of inappropriate laughter) Patient Behavior: Talkative, Cooperative Speech Pattern: Slurred, Rambling (at times), Tangential (at intervals) Voice Loudness: Mildly Soft/Quiet Thought Process: Circumstantial, Disorganized Thought Disorder: Bizarre Hallucinations: Denies Suicidal Ideation: Denies Homicidal Ideation: Denies Insight/Judgement: Poor Sleep: Well Appetite: Good (patient has been observed eating all his meals) Muscle strength/Tone: Normal (no complaints offered) Gait/Station: Normal Psychiatric Findings - Problem List ([place] 1, 2,3) (1) Alcohol dependence with uncomplicated withdrawal Current Visit: Yes Status: Acute (2) Substance induced mood disorder Current Visit: Yes Status: Acute (3) Schizotypical personality disorder Current Visit: Yes Status: Suspected - Initial Treatment Plan Initial Treatment Plan: Psychoeducation and support.Sleep hygiene.Detoxification in progress.No clinical justification for addition of an SSRI agent to the current regimen of medications.Observation.
[2018-03-26] MEDS: THIAMINE HCL 100 MG TABLET (FP) PO SCH (22:15)
[2018-03-26] MEDS: ATORVASTATIN CA 40 MG TABLET (FP) PO SCH (22:15)
[2018-03-27] MEDS: diazePAM 5 MG TABLET PO PRN (06:04)
[2018-03-27] MEDS: metFORMIN HCL 500 MG TABLET (FP) PO SCH ×2 (06:04→17:31)
[2018-03-27] MEDS: diazePAM 5 MG TABLET PO SCH ×2 (10:50→22:15)
[2018-03-27] MEDS: PRENATAL VITAMINS W/ FOLIC ACID TABLET (FP) PO SCH (10:50)
[2018-03-27] MEDS: amLODIPine BESYLATE 10 MG TABLET (FP) PO SCH (10:50)
--- NOTE | 2018-03-27 12:02 | PN ---
[facility] Progress Note (SOAP) Subjective: ANXIETY SWEATS. OOB WITH STEADY GAIT. Objective: 03/27/18 12:00 Vital Signs 03/27/18 03/27/18 06:48 09:29 Temperature 98.4 F 98.9 F Pulse Rate 86 119 H Respiratory 18 20 Rate Blood Pressure 131/79 155/92 Laboratory Tests 03/24/18 03/24/18 03/24/18 13:34 16:18 Unknown WBC RBC Hgb Hct MCV MCH MCHC RDW Plt Count MPV Sodium Potassium Chloride Carbon Dioxide Anion Gap BUN Creatinine Creat Clearance w eGFR POC Glucometer 155 229 Random Glucose Calcium Total Bilirubin AST ALT Alkaline Phosphatase Total Protein Albumin Urine Color Ltyellow Urine Appearance Clear Urine pH 5.0 Ur Specific [place] 1.020 Urine Protein 2+ H Urine Glucose (UA) Negative Urine Ketones Negative Urine Blood 1+ H Urine Nitrite Negative Urine Bilirubin Negative Urine Urobilinogen Negative Ur Leukocyte Esterase Negative Urine WBC (Auto) 1 Urine RBC (Auto) 7 Ur Epithelial Cells Rare Urine Bacteria Rare Urine Mucus Rare RPR Titer 03/25/18 03/25/18 03/25/18 05:23 07:00 07:00 WBC 4.1 RBC 4.39 Hgb 13.0 Hct 36.6 MCV 83.4 MCH 29.5 MCHC 35.4 RDW 16.7 H Plt Count 199 MPV 7.3 L Sodium 135 L Potassium 3.5 Chloride 99 Carbon Dioxide 25 Anion Gap 11 BUN 13 Creatinine 0.7 Creat Clearance w eGFR > 60 POC Glucometer 185 Random Glucose 188 H Calcium 7.2 L Total Bilirubin 0.5 AST 138 H D ALT 78 Alkaline Phosphatase 108 D Total Protein 7.9 Albumin 3.3 L Urine Color Urine Appearance Urine pH Ur Specific [place] Urine Protein Urine Glucose (UA) Urine Ketones Urine Blood Urine Nitrite Urine Bilirubin Urine Urobilinogen Ur Leukocyte Esterase Urine WBC (Auto) Urine RBC (Auto) Ur Epithelial Cells Urine Bacteria Urine Mucus RPR Titer 03/25/18 03/25/18 03/26/18 07:00 16:18 05:56 WBC RBC Hgb Hct MCV MCH MCHC RDW Plt Count MPV Sodium Potassium Chloride Carbon Dioxide Anion Gap BUN Creatinine Creat Clearance w eGFR POC Glucometer 180 223 Random Glucose Calcium Total Bilirubin AST ALT Alkaline Phosphatase Total Protein Albumin Urine Color Urine Appearance Urine pH Ur Specific [place] Urine Protein Urine Glucose (UA) Urine Ketones Urine Blood Urine Nitrite Urine Bilirubin Urine Urobilinogen Ur Leukocyte Esterase Urine WBC (Auto) Urine RBC (Auto) Ur Epithelial Cells Urine Bacteria Urine Mucus RPR Titer Nonreactive 03/26/18 03/27/18 16:30 06:02 WBC RBC Hgb Hct MCV MCH MCHC RDW Plt Count MPV Sodium Potassium Chloride Carbon Dioxide Anion Gap BUN Creatinine Creat Clearance w eGFR POC Glucometer 232 196 Random Glucose Calcium Total Bilirubin AST ALT Alkaline Phosphatase Total Protein Albumin Urine Color Urine Appearance Urine pH Ur Specific [place] Urine Protein Urine Glucose (UA) Urine Ketones Urine Blood Urine Nitrite Urine Bilirubin Urine Urobilinogen Ur Leukocyte Esterase Urine WBC (Auto) Urine RBC (Auto) Ur Epithelial Cells Urine Bacteria Urine Mucus RPR Titer Assessment: 03/27/18 12:01 WITHDRAWAL SX Plan: CONTINUE DETOX
[2018-03-27 21:31] VITALS: BP 152/92; PULSE 105; TEMP 98.4
[2018-03-27] MEDS: THIAMINE HCL 100 MG TABLET (FP) PO SCH (22:15)
[2018-03-27] MEDS: ATORVASTATIN CA 40 MG TABLET (FP) PO SCH (22:15)
--- NOTE | 2018-03-28 09:40 | PN ---
BHS Progress Note (SOAP) Subjective: DETOX COMPLETED.
[2018-03-28] MEDS ORDERED: diazePAM 5 MG TABLET PO SCH (10:00)
--- NOTE | 2018-03-28 11:44 | DS ---
[facility] Detox Discharge Summary Admission Date: 03/24/18 Discharge Date: 03/28/18 - Physical Exam Results Vital Signs: Vital Signs Temperature 98.4 F 03/27/18 21:30 Pulse Rate 105 H 03/27/18 21:30 Respiratory Rate 18 03/28/18 00:30 Blood Pressure 152/92 03/27/18 21:30 O2 Sat by Pulse Oximetry (%) - Treatment Hospital Course: Detox Protocol Followed, Detoxed Safely, Responded well, Discharged Condition Good - Medication Discharge Medications: Ambulatory Orders Thiamine HCl [Vitamin B1] 100 mg PO DAILY 12/12/17 Amlodipine Besylate [Norvasc -] 10 mg PO DAILY #30 tablet 01/04/18 metFORMIN HCL [Glucophage -] 500 mg PO BID@0700,1630 #60 tablet 01/04/18 Atorvastatin Ca [Lipitor] 40 mg PO HS 03/24/18 - Diagnosis (1) Alcohol dependence with uncomplicated withdrawal Status: Acute (2) Diabetes mellitus treated with oral medication Status: Chronic (3) Essential (primary) hypertension Status: Chronic (4) Hx of coronary artery disease Status: Chronic (5) Hyperlipemia Status: Chronic Qualifiers: Hyperlipidemia type: pure hypercholesterolemia Qualified Code(s): E78.00 - Pure hypercholesterolemia, unspecified; E78.0 - Pure hypercholesterolemia (6) Obesity (BMI 30-39.9) Status: Chronic (7) Seizure disorder Status: Chronic - AMA Did Patient Leave Against Medical Advice: No
== END 2018-03-28 07:00 | disposition home or self-care (01) | DRG 775 ==
LOC: YASAS 10:29 → Y3N 11:27
PROVIDERS: ADMIT Surgery; ATTEND Surgery
PROC: HZ2ZZZZ Detoxification Services for Substance Abuse Treatment (ICD-10-PCS; principal; 2018-03-24)
DX: F10.230 Alcohol dependence with withdrawal, uncomplicated (principal); F19.24 Other psychoactive substance dependence with psychoactive substance-induced mood disorder; F60.1 Schizoid personality disorder; I10 Essential (primary) hypertension; I25.10 Atherosclerotic heart disease of native coronary artery without angina pectoris; E11.9 Type 2 diabetes mellitus without complications; E78.5 Hyperlipidemia, unspecified; E66.9 Obesity, unspecified; Z68.41 Body mass index [BMI] 40.0-44.9, adult; Z86.69 Personal history of other diseases of the nervous system and sense organs; Z88.8 Allergy status to other drugs, medicaments and biological substances; Z91.14 Patient's other noncompliance with medication regimen; Z87.891 Personal history of nicotine dependence; Z79.84 Long term (current) use of oral hypoglycemic drugs
CPT/HCPCS: 36415; 80053; 81003; 81015; 82962; 85027; 86593; 93005; 93010

== ENCOUNTER 2018-05-22 10:08 | Inpatient (IN) | payer OTHER ==
[2018-05-22 10:30] VITALS: BMI 35.9
--- NOTE | 2018-05-22 17:35 | HP ---
CIWA Score - CIWA Score Nausea/Vomitin-No Nausea/No Vomiting Muscle Tremors: 3 Anxiety: 4-Mod. Anxious/Guarded Agitation: 2 Paroxysmal Sweats: 3 Orientation: 1-Uncertain about Date (no distress) Tacttile Disturbances: 0-None Auditory Disturbances: 0-None Visual Disturbances: 1-Very Mild Sensitivity Headache: 0-None Present CIWA-Ar Total Score: 14 Admission ROS BHS - HPI Chief Complaint: alcohol withdrawal symptoms Allergies/Adverse Reactions: Allergies Allergy/AdvReac Type Severity Reaction Status Date / Time RASHAD Inhibitors Allergy Severe Swelling Verified 05/22/18 11:47 lisinopril Allergy Severe Swelling Verified 05/22/18 11:47 History of Present Illness: 53 yo male with hx of chronic alcohol dependence presents today for alcohol detox. Patient reports he was referred by his longterm to to be evaluated today at [facility] for alcohol intoxication. Last detox [facility] 04/26/18 -04/30/18. PMHX: HTN, DM II, cholesterol, Fatty Liver. Denies suicidal / homicidal ideation or hx of suicide attempts. Denies seizures or blackouts. Reports longest period of sobriety one month. Exam Limitations: No Limitations - Ebola screening Have you traveled outside of the country in the last 21 days: No Have you had contact with anyone from an Ebola affected area: No Have you been sick,other than usual withdrawal symptoms: No Do you have a fever: No - Review of Systems Constitutional: Chills, Changes in sleep EENT: reports: Dental Problems Respiratory: reports: No Symptoms reported Cardiac: reports: No Symptoms Reported GI: reports: Poor Fluid Intake, Indigestion : reports: No Symptoms Reported Musculoskeletal: reports: No Symptoms Reported Integumentary: reports: Pruritus Neuro: reports: No Symptoms reported Endocrine: reports: Increased Thirst Hematology: reports: No Symptoms Reported Psychiatric: reports: Orientated x3, Anxious Other Systems: Reviewed and Negative Patient History - Patient Medical History Hx Anemia: No Hx Asthma: No Hx Chronic Obstructive Pulmonary Disease (COPD): No Hx Cancer: No Hx Cardiac Disorders: No Hx Congestive Heart Failure: No Hx Hypertension: Yes Hx Hypercholesterolemia: Yes (no med) Hx Pacemaker: No HX Cerebrovascular Accident: No Hx Seizures: No Hx Dementia: No Hx Diabetes: Yes (NIDDM, on metformin ) Hx Gastrointestinal Disorders: Yes (acid reflux) Hx Liver Disease: No Hx Genitourinary Disorders: No Hx Sexually Transmitted Disorders: No Hx Renal Disease (ESRD): No Hx Thyroid Disease: No Hx Human Immunodeficiency Virus (HIV): No Hx Hepatitis C: No Hx Depression: No Hx Suicide Attempt: No Hx Bipolar Disorder: No Hx Schizophrenia: No - Patient Surgical History Past Surgical History: Yes Hx Neurologic Surgery: No Hx Cataract Extraction: No Hx Cardiac Surgery: No Hx Lung Surgery: No Hx Breast Surgery: No Hx Breast Biopsy: No Hx Abdominal Surgery: No Hx Appendectomy: No Hx Cholecystectomy: No Hx Genitourinary Surgery: Yes (left kidney stone removed in 2015) Hx Section: No Hx Orthopedic Surgery: No Other Surgical History: left kidney stone removed 11/2015 Anesthesia Reaction: No - PPD History Previous Implant?: Yes Documented Results: Positive w/o proof Results: cxray(-)04/29/18 PPD to be Administered?: No - Smoking Cessation Smoking history: Former smoker Have you smoked in the past 12 months: No Aproximately how many cigarettes per day: 1 If you are a former smoker, when did you quit?: at age 19 Cigars Per Day: 0 Hx Chewing Tobacco Use: No Initiated information on smoking cessation: No 'Breaking Loose' booklet given: 05/22/18 - Substance & Tx. History Hx Alcohol Use: Yes Hx Substance Use: Yes Substance Use Type: Alcohol Hx Substance Use Treatment: Yes (Last detox [facility] 04/26/18 -04/30/18.) - Substances Abused Alcohol-beer/vodka Route: Oral Frequency: Daily Amount used: 4-5 (40 oz.0/1 pt. Age of first use: 19 Date of Last Use: 05/22/18 Family Disease History - Family Disease History Family Disease History: Heart Disease: Mother (HTN), Other: Father (Alcohol), Mother, Brother (Alcohol) Admission Physical Exam BHS - Vital Signs Vital Signs: Vital Signs - 24 hr 05/22/18 10:28 Temperature 97.8 F Pulse Rate 105 H Respiratory 20 Rate Blood Pressure 153/88 - Physical General Appearance: Yes: Disheveled, Mild Distress, Sweating, Anxious HEENTM: Yes: EOMI, Hearing grossly Normal, Normal ENT Inspection, Normocephalic , Normal Voice, FIDEL, Pharynx Normal, Tm's normal, Other (poor dentition) Respiratory: Yes: Chest Non-Tender, Lungs Clear, Normal Breath Sounds, No Respiratory Distress, No Accessory Muscle Use Neck: Yes: No masses,lesions,Nodules, Trachea in good position Breast: Yes: Breast Exam Deferred Cardiology: Yes: Regular Rhythm, Regular Rate Abdominal: Yes: Normal Bowel Sounds, Non Tender, Flat, Protuberent Genitourinary: Yes: Within Normal Limits Back: Yes: Normal Inspection Musculoskeletal: Yes: full range of Motion, Gait Steady, Pelvis Stable Extremities: Yes: Normal Capillary Refill Neurological: Yes: prepress manager II-XII NML intact, Fully Oriented, Alert, Motor Strength 5/5, Depressed Affect Integumentary: Yes: Normal Color, Warm, Diaphoresis Lymphatic: Yes: Within Normal Limits - Diagnostic (1) Alcohol dependence with uncomplicated withdrawal Current Visit: Yes Status: Acute (2) Diabetes mellitus treated with oral medication Current Visit: Yes Status: Chronic (3) Essential (primary) hypertension Current Visit: Yes Status: Chronic (4) Hyperlipemia Current Visit: Yes Status: Chronic Qualifiers: Hyperlipidemia type: pure hypercholesterolemia Qualified Code(s): E78.00 - Pure hypercholesterolemia, unspecified; E78.0 - Pure hypercholesterolemia (5) Obesity (BMI 30-39.9) Current Visit: Yes Status: Chronic (6) Depressed Current Visit: Yes Status: Suspected Qualifiers: Depression Type: dysthymia Qualified Code(s): F34.1 - Dysthymic disorder Comment: los Cleared for Admission [facility] - Detox or Rehab [facility] Level of Care: Medically Managed Detox Regimen/Protocol: Valium [facility] Breath Alcohol Content Breath Alcohol Content: 0.215 Urine Drug Screen - Results Drug Screen Negative: No Urine Drug Screen Results: BZO-Benzodiazepines
[2018-05-22] MEDS ORDERED: guaiFENesin/D-METHORPHAN HB 10 ML UNIT-DOSE CUPS PO PRN (17:41)
[2018-05-22] MEDS ORDERED: P-EPHED 60MG/TRIPROLIDI 2.5MG TABLET PO PRN (17:41)
[2018-05-22] MEDS ORDERED: ACETAMINOPHEN 325 MG TABLET (FP) PO PRN (17:41)
[2018-05-22] MEDS ORDERED: diazePAM 5 MG TABLET PO PRN (17:41)
[2018-05-22] MEDS ORDERED: MAGNESIUM CITRATE 300 ML BOTTLE PO PRN (17:41)
[2018-05-22] MEDS ORDERED: LOPERAMIDE HCL 2 MG CAPSULE PO PRN (17:41)
[2018-05-22] MEDS ORDERED: MENTHOL/PHENOL 1 EACH UD MM PRN (17:41)
[2018-05-22] MEDS ORDERED: MAG HYDROX/AL HYDROX/SIMETH 30 ML UNIT-DOSE CUP PO PRN (17:41)
[2018-05-22] MEDS ORDERED: MAGNESIUM HYDROX 2400MG/30ML ORAL SUSPENSION 30 ML CUP PO PRN (17:41)
[2018-05-22] MEDS ORDERED: IBUPROFEN 400 MG TABLET (FP) PO PRN (17:41)
[2018-05-22] MEDS ORDERED: diazePAM 5 MG TABLET PO ONE (18:00)
[2018-05-22] MEDS ORDERED: MELATONIN 5 MG TABLETS PO PRN (22:00)
[2018-05-22] MEDS: diazePAM 5 MG TABLET PO SCH (22:35)
[2018-05-22] MEDS: THIAMINE HCL 100 MG TABLET (FP) PO SCH (22:35)
[2018-05-22] MEDS: RANITIDINE HCL 150 MG TABLET (FP) PO SCH (22:35)
[2018-05-22] MEDS: ATORVASTATIN CA 20 MG TABLET (FP) PO SCH (22:35)
[2018-05-23 02:21] LABS: URINE APPEARANCE SLCLOUDY; URINE BILIRUBIN NEGATIVE (<2.0 mg/dL); URINE COLOR YELLOW; URINE GLUCOSE (UA) NEGATIVE (NEGATIVE); URINE KETONE NEGATIVE (NEGATIVE); URINE LEUK ESTERASE NEGATIVE (NEGATIVE); URINE NITRITE POSITIVE (NEGATIVE); URINE UROBILINOGEN NEGATIVE mg/dL (0.2-1.0)
[2018-05-23 02:26] LABS: URINE PROTEIN 2+ (NEGATIVE)
[2018-05-23 02:37] LABS: EPI CELLS RARE /HPF (FEW); URINE BACTERIA MANY /hpf (NONE SEEN); URINE MUCUS RARE
[2018-05-23] MEDS: diazePAM 5 MG TABLET PO SCH ×3 (05:35→22:10)
[2018-05-23] MEDS: metFORMIN HCL 500 MG TABLET (FP) PO SCH ×2 (06:08→17:14)
[2018-05-23] MEDS: ATENOLOL 50 MG TABLET (FP) PO SCH (10:38)
[2018-05-23] MEDS: ASPIRIN 81 MG CHEWABLE TABLETS PO SCH (10:39)
[2018-05-23] MEDS: RANITIDINE HCL 150 MG TABLET (FP) PO SCH ×2 (10:39→22:11)
[2018-05-23] MEDS: amLODIPine BESYLATE 10 MG TABLET (FP) PO SCH (10:39)
[2018-05-23] MEDS: PRENATAL VITAMINS W/ FOLIC ACID TABLET (FP) PO SCH (10:39)
[2018-05-23 10:40] LABS: HEMATOCRIT 33.2 % (35.4-49); HEMOGLOBIN 12.8 GM/dL (11.7-16.9); MCH 32.6 pg (25.7-33.7); MCHC 38.5 g/dl (32.0-35.9); MEAN CELL VOLUME 84.6 fl (80-96); MEAN PLT VOLUME 7.5 fl (7.5-11.1); PLATELET COUNT 355 K/MM3 (134-434); RBC 3.92 M/mm3 (4.00-5.60); RDW 15.2 % (11.9-15.9)
[2018-05-23 11:10] LABS: ALBUMIN 3.4 g/dl (3.4-5.0); ANION GAP 13 (8-16); CHLORIDE 107 mmol/L (98-107); CO2 24 mmol/L (21-32); CREATININE 0.9 mg/dL (0.7-1.3); SODIUM 144 mmol/L (136-145)
[2018-05-23 11:35] LABS: ALK PHOS 102 U/L (45-117); BILIRUBIN,TOTAL 0.6 mg/dL (0.2-1.0)
--- NOTE | 2018-05-23 11:42 | CONSULT ---
[facility] Psychiatric Consult - Data Date of interview: 05/23/18 Admission source: [facility] Identifying data: Patient is a 53 year old single male, without kids, unemployed , homeless, and not receiving financial assistance. This is one of multiple admissions for patient. Pt admitted to for alcohol dependence. Substance Abuse History: Smoking Cessation. Smoking history: Former smoker. Have you smoked in the past 12 months: No. Aproximately how many cigarettes per day: 1. If you are a former smoker, when did you quit?: at age 19. Cigars Per Day: 0. Hx Chewing Tobacco Use: No. Initiated information on smoking cessation: No. 'Breaking Loose' booklet given: 05/22/18. - Substance & Tx. History. Hx Alcohol Use: Yes. Hx Substance Use: Yes. Substance Use Type: Alcohol. Hx Substance Use Treatment: Yes (Last detox [facility] 04/26/18 -04/30/18.). - Substances Abused. Alcohol-beer/vodka. Route: Oral. Frequency: Daily. Amount used: 4-5 (40 oz.0/1 pt. Age of first use: 19. Date of Last Use: Medical History: Left kidney stone removed in 2016, hypertension, diabetes, hypercholesterolemia Psychiatric History: Patient denies h/o psychiatric hospitalizations. Reports a history of accepting zoloft approximately 1-2 years ago while he was seeing a psychiatrist in [facility] and while receiving outpatient care at [facility]. Claims to have a diagnosis of anxiety and panic disorder. Pt. nonadherent to zoloft. Pt. denies h/o suicide attempt. Physical/Sexual Abuse/Trauma History: Denies. Mental Status Exam - Mental Status Exam Alert and Oriented to: Time, Place, Person Cognitive Function: Good Patient Appearance: Well Groomed Mood: Withdrawn, Euthymic Affect: Mood Congruent Patient Behavior: Appropriate Speech Pattern: Slurred Voice Loudness: Moderately Soft/Quiet Thought Process: Goal Oriented Thought Disorder: Not Present Hallucinations: Denies Suicidal Ideation: Denies Homicidal Ideation: Denies Insight/Judgement: Poor Sleep: Fair Appetite: Fair Muscle strength/Tone: Normal Gait/Station: Normal Psychiatric Findings - Problem List ([place] 1, 2,3) (1) Alcohol dependence with uncomplicated withdrawal Current Visit: Yes Status: Acute (2) Substance induced mood disorder Current Visit: Yes Status: Acute - Initial Treatment Plan Initial Treatment Plan: Psychoeducation provided. Detoxification provided. Observation.
[2018-05-23 12:14] LABS: GLUCOSE,RANDOM 230 mg/dL (74-106); POTASSIUM 3.6 mmol/L (3.5-5.1)
--- NOTE | 2018-05-23 13:23 | PN ---
S CIWA - CIWA Score Nausea/Vomitin Muscle Tremors: None Anxiety: 4-Mod. Anxious/Guarded Agitation: 4-Moderately Restless Paroxysmal Sweats: No Perspiration Orientation: 0-Oriented Tacttile Disturbances: 2-Mild Itch/Numbness/Burn Auditory Disturbances: 0-None Visual Disturbances: 3-Moderate Sensitivity Headache: 0-None Present CIWA-Ar Total Score: 16 BHS Progress Note (SOAP) Subjective: Anxious, Poor Appetite, Nausea. Objective: PATIENT A & O X 3, OBSERVED AMBULATING ON UNIT. NO ACUTE DISTRESS. 05/23/18 13:20 Vital Signs Temperature 98.3 F 05/23/18 09:35 Pulse Rate 96 H 05/23/18 09:35 Respiratory Rate 18 05/23/18 09:35 Blood Pressure 144/87 05/23/18 09:35 O2 Sat by Pulse Oximetry (%) Laboratory Tests 05/22/18 05/23/18 05/23/18 12:11 00:01 05:33 WBC RBC Hgb Hct MCV MCH MCHC RDW Plt Count MPV Sodium Potassium Chloride Carbon Dioxide Anion Gap BUN Creatinine Creat Clearance w eGFR POC Glucometer 197 166 Random Glucose Calcium Total Bilirubin AST ALT Alkaline Phosphatase Total Protein Albumin Urine Color Yellow Urine Appearance Slcloudy Urine pH 5.0 Ur Specific [place] 1.017 Urine Protein 2+ H Urine Glucose (UA) Negative Urine Ketones Negative Urine Blood Negative Urine Nitrite Positive Urine Bilirubin Negative Urine Urobilinogen Negative Ur Leukocyte Esterase Negative Urine WBC (Auto) 2 Urine RBC (Auto) <1 Ur Epithelial Cells Rare Urine Bacteria Many Urine Mucus Rare 05/23/18 05/23/18 06:00 06:00 WBC 6.0 RBC 3.92 L Hgb 12.8 Hct 33.2 L MCV 84.6 MCH 32.6 MCHC 38.5 H RDW 15.2 D Plt Count 355 D MPV 7.5 Sodium 144 Potassium 3.6 Chloride 107 Carbon Dioxide 24 Anion Gap 13 BUN TNP Creatinine 0.9 Creat Clearance w eGFR > 60 POC Glucometer Random Glucose 230 H D Calcium TNP Total Bilirubin 0.6 AST TNP ALT TNP Alkaline Phosphatase 102 D Total Protein TNP Albumin 3.4 Urine Color Urine Appearance Urine pH Ur Specific [place] Urine Protein Urine Glucose (UA) Urine Ketones Urine Blood Urine Nitrite Urine Bilirubin Urine Urobilinogen Ur Leukocyte Esterase Urine WBC (Auto) Urine RBC (Auto) Ur Epithelial Cells Urine Bacteria Urine Mucus LABS NOTED. RPR RESULT PENDING. 05/23/18 13:24 Assessment: 05/23/18 13:20 WITHDRAWAL SYMPTOMS. Plan: CONTINUE DETOX. INCREASE DAILY PO FLUID INTAKE.
--- NOTE | 2018-05-23 16:49 | EKG ---
Test Reason : Blood Pressure : / mmHG Vent. Rate : 100 BPM Atrial Rate : 100 BPM P-R Int : 180 ms QRS Dur : 096 ms QT Int : 360 ms P-R-T Axes : 047 049 106 degrees QTc Int : 464 ms NORMAL SINUS RHYTHM NONSPECIFIC T WAVE ABNORMALITY PROLONGED QT ABNORMAL ECG WHEN COMPARED WITH ECG OF 26-APR-2018 12:21, NONSPECIFIC T WAVE ABNORMALITY NOW EVIDENT IN INFERIOR LEADS NONSPECIFIC T WAVE ABNORMALITY, WORSE IN LATERAL LEADS Confirmed by SAM BISHOP, LISANDRO ([id number]) on 05/23/2018 3:51:24 PM Referred By: Confirmed By:LISANDRO VARGAS MD
[2018-05-23] MEDS ORDERED: hydrOXYzine PAMOATE 50 MG CAPSULE (FP) PO PRN (17:34)
--- NOTE | 2018-05-23 17:34 | PN ---
S Progress Note Note: Psychiatric nurse practitioner: Nursing staff informed filing writer of patient having a panic attack. Alarm Service Technician able to speak to patient. Pt. presented as calm, cooperative and mildly anxious. Pt. stated he jumped out of bed due to experiencing a panic attack. States he has had panic attacks in the past. Pt. with a history of nonadherence to medications. Will order vistaril 50mg q4h.
[2018-05-23] MEDS: ATORVASTATIN CA 20 MG TABLET (FP) PO SCH (22:10)
[2018-05-23] MEDS: THIAMINE HCL 100 MG TABLET (FP) PO SCH (22:10)
[2018-05-24] MEDS: metFORMIN HCL 500 MG TABLET (FP) PO SCH ×2 (06:40→17:37)
--- NOTE | 2018-05-24 08:45 | EKG ---
Test Reason : Blood Pressure : / mmHG Vent. Rate : 079 BPM Atrial Rate : 079 BPM P-R Int : 170 ms QRS Dur : 092 ms QT Int : 390 ms P-R-T Axes : 049 039 064 degrees QTc Int : 447 ms NORMAL SINUS RHYTHM NONSPECIFIC T WAVE ABNORMALITY ABNORMAL ECG Confirmed by CORY ONOFRE MD ([id number]) on 05/24/2018 8:45:44 AM Referred By: Confirmed By:CORY ONOFRE MD
[2018-05-24] MEDS: ASPIRIN 81 MG CHEWABLE TABLETS PO SCH (10:18)
[2018-05-24] MEDS: ATENOLOL 50 MG TABLET (FP) PO SCH (10:18)
[2018-05-24] MEDS: PRENATAL VITAMINS W/ FOLIC ACID TABLET (FP) PO SCH (10:18)
[2018-05-24] MEDS: amLODIPine BESYLATE 10 MG TABLET (FP) PO SCH (10:18)
[2018-05-24] MEDS: RANITIDINE HCL 150 MG TABLET (FP) PO SCH ×2 (10:18→22:06)
[2018-05-24] MEDS: diazePAM 5 MG TABLET PO SCH ×2 (10:18→22:06)
[2018-05-24 10:53] LABS: ALBUMIN 3.7 g/dl (3.4-5.0); ANION GAP 10 (8-16); BLOOD UREA NITROGEN 8 mg/dL (7-18); CALCIUM 8.6 mg/dL (8.5-10.1); CHLORIDE 96 mmol/L (98-107); CO2 30 mmol/L (21-32); CREATININE 0.8 mg/dL (0.7-1.3); GLUCOSE,RANDOM 191 mg/dL (74-106); POTASSIUM 3.2 mmol/L (3.5-5.1); SGOT/AST 56 U/L (15-37); SGPT/ALT 81 U/L (12-78); SODIUM 136 mmol/L (136-145)
[2018-05-24 10:55] LABS: ALK PHOS 95 U/L (45-117); BILIRUBIN,TOTAL 0.5 mg/dL (0.2-1.0); TOT PROT 8.3 g/dl (6.4-8.2)
--- NOTE | 2018-05-24 13:49 | PN ---
[facility] CIWA - CIWA Score Nausea/Vomitin-No Nausea/No Vomiting Muscle Tremors: 2 Anxiety: 4-Mod. Anxious/Guarded Agitation: 2 Paroxysmal Sweats: 3 Orientation: 2-Disoriented Date<2 days Tacttile Disturbances: 2-Mild Itch/Numbness/Burn Auditory Disturbances: 0-None Visual Disturbances: 0-None Headache: 0-None Present CIWA-Ar Total Score: 15 BHS Progress Note (SOAP) Subjective: Sweating, Anxious, Body Aches, Diarrhea. Objective: 05/24/18 13:48 Vital Signs Temperature 98.8 F 05/24/18 09:47 Pulse Rate 89 05/24/18 09:47 Respiratory Rate 20 05/24/18 09:47 Blood Pressure 153/91 05/24/18 09:47 O2 Sat by Pulse Oximetry (%) Laboratory Tests 05/22/18 05/23/18 05/23/18 12:11 00:01 05:33 WBC RBC Hgb Hct MCV MCH MCHC RDW Plt Count MPV Sodium Potassium Chloride Carbon Dioxide Anion Gap BUN Creatinine Creat Clearance w eGFR POC Glucometer 197 166 Random Glucose Calcium Total Bilirubin AST ALT Alkaline Phosphatase Total Protein Albumin Urine Color Yellow Urine Appearance Slcloudy Urine pH 5.0 Ur Specific [place] 1.017 Urine Protein 2+ H Urine Glucose (UA) Negative Urine Ketones Negative Urine Blood Negative Urine Nitrite Positive Urine Bilirubin Negative Urine Urobilinogen Negative Ur Leukocyte Esterase Negative Urine WBC (Auto) 2 Urine RBC (Auto) <1 Ur Epithelial Cells Rare Urine Bacteria Many Urine Mucus Rare 05/23/18 05/23/18 05/23/18 06:00 06:00 16:54 WBC 6.0 RBC 3.92 L Hgb 12.8 Hct 33.2 L MCV 84.6 MCH 32.6 MCHC 38.5 H RDW 15.2 D Plt Count 355 D MPV 7.5 Sodium 144 Potassium 3.6 Chloride 107 Carbon Dioxide 24 Anion Gap 13 BUN TNP Creatinine 0.9 Creat Clearance w eGFR > 60 POC Glucometer 142 Random Glucose 230 H D Calcium TNP Total Bilirubin 0.6 AST TNP ALT TNP Alkaline Phosphatase 102 D Total Protein TNP Albumin 3.4 Urine Color Urine Appearance Urine pH Ur Specific [place] Urine Protein Urine Glucose (UA) Urine Ketones Urine Blood Urine Nitrite Urine Bilirubin Urine Urobilinogen Ur Leukocyte Esterase Urine WBC (Auto) Urine RBC (Auto) Ur Epithelial Cells Urine Bacteria Urine Mucus 05/24/18 05/24/18 05:14 07:00 WBC RBC Hgb Hct MCV MCH MCHC RDW Plt Count MPV Sodium 136 Potassium 3.2 L Chloride 96 L D Carbon Dioxide 30 D Anion Gap 10 BUN 8 Creatinine 0.8 Creat Clearance w eGFR > 60 POC Glucometer 167 Random Glucose 191 H Calcium 8.6 Total Bilirubin 0.5 AST 56 H D ALT 81 H D Alkaline Phosphatase 95 Total Protein 8.3 H Albumin 3.7 Urine Color Urine Appearance Urine pH Ur Specific [place] Urine Protein Urine Glucose (UA) Urine Ketones Urine Blood Urine Nitrite Urine Bilirubin Urine Urobilinogen Ur Leukocyte Esterase Urine WBC (Auto) Urine RBC (Auto) Ur Epithelial Cells Urine Bacteria Urine Mucus LABS NOTED. RESULTS OF REPEAT CMP NOTED. 05/24/18 13:50 05/24/18 13:50 Assessment: 05/24/18 13:49 WITHDRAWAL SYMPTOMS. HYPOKALEMIA. 05/24/18 13:50 Plan: CONTINUE DETOX. K-DUR, 20 MEQ PO BID.
[2018-05-24] MEDS ORDERED: POTASSIUM CHLORIDE TABS 20 MEQ TABLET.ER (FP) PO ONE (14:05)
[2018-05-24] MEDS: POTASSIUM CHLORIDE TABS 20 MEQ TABLET.ER (FP) PO SCH (17:37)
[2018-05-24] MEDS: ATORVASTATIN CA 20 MG TABLET (FP) PO SCH (22:06)
[2018-05-24] MEDS: THIAMINE HCL 100 MG TABLET (FP) PO SCH (22:07)
[2018-05-25] MEDS: metFORMIN HCL 500 MG TABLET (FP) PO SCH ×2 (06:06→17:58)
[2018-05-25] MEDS: ASPIRIN 81 MG CHEWABLE TABLETS PO SCH (10:22)
[2018-05-25] MEDS: PRENATAL VITAMINS W/ FOLIC ACID TABLET (FP) PO SCH (10:22)
[2018-05-25] MEDS: POTASSIUM CHLORIDE TABS 20 MEQ TABLET.ER (FP) PO SCH ×2 (10:22→17:58)
[2018-05-25] MEDS: amLODIPine BESYLATE 10 MG TABLET (FP) PO SCH (10:22)
[2018-05-25] MEDS: RANITIDINE HCL 150 MG TABLET (FP) PO SCH ×2 (10:23→22:30)
[2018-05-25] MEDS: ATENOLOL 50 MG TABLET (FP) PO SCH (10:23)
[2018-05-25] MEDS: diazePAM 5 MG TABLET PO SCH ×2 (10:23→22:30)
--- NOTE | 2018-05-25 14:51 | PN ---
[facility] Progress Note (SOAP) Subjective: ANXIETY,IRRITABILITY,TREMORS,SWEATS. Objective: 05/25/18 14:48 Vital Signs 05/25/18 05/25/18 09:26 13:38 Temperature 96.1 F L 96.7 F L Pulse Rate 87 73 Respiratory 18 18 Rate Blood Pressure 146/87 102/61 Laboratory Tests 05/22/18 05/23/18 05/23/18 12:11 00:01 05:33 WBC RBC Hgb Hct MCV MCH MCHC RDW Plt Count MPV Sodium Potassium Chloride Carbon Dioxide Anion Gap BUN Creatinine Creat Clearance w eGFR POC Glucometer 197 166 Random Glucose Calcium Total Bilirubin AST ALT Alkaline Phosphatase Total Protein Albumin Urine Color Yellow Urine Appearance Slcloudy Urine pH 5.0 Ur Specific [place] 1.017 Urine Protein 2+ H Urine Glucose (UA) Negative Urine Ketones Negative Urine Blood Negative Urine Nitrite Positive Urine Bilirubin Negative Urine Urobilinogen Negative Ur Leukocyte Esterase Negative Urine WBC (Auto) 2 Urine RBC (Auto) <1 Ur Epithelial Cells Rare Urine Bacteria Many Urine Mucus Rare RPR Titer 05/23/18 05/23/18 05/23/18 06:00 06:00 06:00 WBC 6.0 RBC 3.92 L Hgb 12.8 Hct 33.2 L MCV 84.6 MCH 32.6 MCHC 38.5 H RDW 15.2 D Plt Count 355 D MPV 7.5 Sodium 144 Potassium 3.6 Chloride 107 Carbon Dioxide 24 Anion Gap 13 BUN TNP Creatinine 0.9 Creat Clearance w eGFR > 60 POC Glucometer Random Glucose 230 H D Calcium TNP Total Bilirubin 0.6 AST TNP ALT TNP Alkaline Phosphatase 102 D Total Protein TNP Albumin 3.4 Urine Color Urine Appearance Urine pH Ur Specific [place] Urine Protein Urine Glucose (UA) Urine Ketones Urine Blood Urine Nitrite Urine Bilirubin Urine Urobilinogen Ur Leukocyte Esterase Urine WBC (Auto) Urine RBC (Auto) Ur Epithelial Cells Urine Bacteria Urine Mucus RPR Titer Nonreactive 05/23/18 05/24/18 05/24/18 16:54 05:14 07:00 WBC RBC Hgb Hct MCV MCH MCHC RDW Plt Count MPV Sodium 136 Potassium 3.2 L Chloride 96 L D Carbon Dioxide 30 D Anion Gap 10 BUN 8 Creatinine 0.8 Creat Clearance w eGFR > 60 POC Glucometer 142 167 Random Glucose 191 H Calcium 8.6 Total Bilirubin 0.5 AST 56 H D ALT 81 H D Alkaline Phosphatase 95 Total Protein 8.3 H Albumin 3.7 Urine Color Urine Appearance Urine pH Ur Specific [place] Urine Protein Urine Glucose (UA) Urine Ketones Urine Blood Urine Nitrite Urine Bilirubin Urine Urobilinogen Ur Leukocyte Esterase Urine WBC (Auto) Urine RBC (Auto) Ur Epithelial Cells Urine Bacteria Urine Mucus RPR Titer 05/25/18 05:21 WBC RBC Hgb Hct MCV MCH MCHC RDW Plt Count MPV Sodium Potassium Chloride Carbon Dioxide Anion Gap BUN Creatinine Creat Clearance w eGFR POC Glucometer 226 Random Glucose Calcium Total Bilirubin AST ALT Alkaline Phosphatase Total Protein Albumin Urine Color Urine Appearance Urine pH Ur Specific [place] Urine Protein Urine Glucose (UA) Urine Ketones Urine Blood Urine Nitrite Urine Bilirubin Urine Urobilinogen Ur Leukocyte Esterase Urine WBC (Auto) Urine RBC (Auto) Ur Epithelial Cells Urine Bacteria Urine Mucus RPR Titer K+ =3.2 PT ON POTASSIUM SUPPLEMENT Assessment: 05/25/18 14:49 WOTHDRAWAL SX Plan: CONTINUE DETOX
[2018-05-25] MEDS: ATORVASTATIN CA 20 MG TABLET (FP) PO SCH (22:30)
[2018-05-25] MEDS: THIAMINE HCL 100 MG TABLET (FP) PO SCH (22:30)
[2018-05-26] MEDS: metFORMIN HCL 500 MG TABLET (FP) PO SCH (07:08)
[2018-05-26 09:18] VITALS: BP 147/88; PULSE 78; TEMP 98
[2018-05-26] MEDS ORDERED: diazePAM 5 MG TABLET PO SCH (10:00)
--- NOTE | 2018-05-26 16:26 | DS ---
[facility] Detox Discharge Summary Admission Date: 05/22/18 Discharge Date: 05/26/18 - History Present History: Alcohol Dependence Pertinent Past History: HLD HTN DMT2 PPD Positive Obesity - Physical Exam Results Vital Signs: Vital Signs Temperature 98.0 F 05/26/18 09:18 Pulse Rate 78 05/26/18 09:18 Respiratory Rate 18 05/26/18 09:18 Blood Pressure 147/88 05/26/18 09:18 O2 Sat by Pulse Oximetry (%) Pertinent Admission Physical Exam Findings: Withdrawal symptoms Laboratory Tests 05/22/18 05/23/18 05/23/18 12:11 00:01 05:33 WBC RBC Hgb Hct MCV MCH MCHC RDW Plt Count MPV Sodium Potassium Chloride Carbon Dioxide Anion Gap BUN Creatinine Creat Clearance w eGFR POC Glucometer 197 166 Random Glucose Calcium Total Bilirubin AST ALT Alkaline Phosphatase Total Protein Albumin Urine Color Yellow Urine Appearance Slcloudy Urine pH 5.0 Ur Specific [place] 1.017 Urine Protein 2+ H Urine Glucose (UA) Negative Urine Ketones Negative Urine Blood Negative Urine Nitrite Positive Urine Bilirubin Negative Urine Urobilinogen Negative Ur Leukocyte Esterase Negative Urine WBC (Auto) 2 Urine RBC (Auto) <1 Ur Epithelial Cells Rare Urine Bacteria Many Urine Mucus Rare RPR Titer 05/23/18 05/23/18 05/23/18 06:00 06:00 06:00 WBC 6.0 RBC 3.92 L Hgb 12.8 Hct 33.2 L MCV 84.6 MCH 32.6 MCHC 38.5 H RDW 15.2 D Plt Count 355 D MPV 7.5 Sodium 144 Potassium 3.6 Chloride 107 Carbon Dioxide 24 Anion Gap 13 BUN TNP Creatinine 0.9 Creat Clearance w eGFR > 60 POC Glucometer Random Glucose 230 H D Calcium TNP Total Bilirubin 0.6 AST TNP ALT TNP Alkaline Phosphatase 102 D Total Protein TNP Albumin 3.4 Urine Color Urine Appearance Urine pH Ur Specific [place] Urine Protein Urine Glucose (UA) Urine Ketones Urine Blood Urine Nitrite Urine Bilirubin Urine Urobilinogen Ur Leukocyte Esterase Urine WBC (Auto) Urine RBC (Auto) Ur Epithelial Cells Urine Bacteria Urine Mucus RPR Titer Nonreactive 05/23/18 05/24/18 05/24/18 16:54 05:14 07:00 WBC RBC Hgb Hct MCV MCH MCHC RDW Plt Count MPV Sodium 136 Potassium 3.2 L Chloride 96 L D Carbon Dioxide 30 D Anion Gap 10 BUN 8 Creatinine 0.8 Creat Clearance w eGFR > 60 POC Glucometer 142 167 Random Glucose 191 H Calcium 8.6 Total Bilirubin 0.5 AST 56 H D ALT 81 H D Alkaline Phosphatase 95 Total Protein 8.3 H Albumin 3.7 Urine Color Urine Appearance Urine pH Ur Specific [place] Urine Protein Urine Glucose (UA) Urine Ketones Urine Blood Urine Nitrite Urine Bilirubin Urine Urobilinogen Ur Leukocyte Esterase Urine WBC (Auto) Urine RBC (Auto) Ur Epithelial Cells Urine Bacteria Urine Mucus RPR Titer 05/24/18 05/24/18 05/25/18 16:26 16:28 05:21 WBC RBC Hgb Hct MCV MCH MCHC RDW Plt Count MPV Sodium Potassium Chloride Carbon Dioxide Anion Gap BUN Creatinine Creat Clearance w eGFR POC Glucometer 276 233 226 Random Glucose Calcium Total Bilirubin AST ALT Alkaline Phosphatase Total Protein Albumin Urine Color Urine Appearance Urine pH Ur Specific [place] Urine Protein Urine Glucose (UA) Urine Ketones Urine Blood Urine Nitrite Urine Bilirubin Urine Urobilinogen Ur Leukocyte Esterase Urine WBC (Auto) Urine RBC (Auto) Ur Epithelial Cells Urine Bacteria Urine Mucus RPR Titer 05/26/18 05:52 WBC RBC Hgb Hct MCV MCH MCHC RDW Plt Count MPV Sodium Potassium Chloride Carbon Dioxide Anion Gap BUN Creatinine Creat Clearance w eGFR POC Glucometer 282 Random Glucose Calcium Total Bilirubin AST ALT Alkaline Phosphatase Total Protein Albumin Urine Color Urine Appearance Urine pH Ur Specific [place] Urine Protein Urine Glucose (UA) Urine Ketones Urine Blood Urine Nitrite Urine Bilirubin Urine Urobilinogen Ur Leukocyte Esterase Urine WBC (Auto) Urine RBC (Auto) Ur Epithelial Cells Urine Bacteria Urine Mucus RPR Titer Labs reviewed: UA shows nitrite positive (ciprofloxacin 500mg PO q12hr x 10 days eRx to patient's pharmacy) - Treatment Hospital Course: Detox Protocol Followed, Detoxed Safely, Responded well, Discharged Condition Good - Medication Discharge Medications: Ambulatory Orders Amlodipine Besylate [Norvasc -] 10 mg PO DAILY #30 tablet 04/29/18 metFORMIN HCL [Glucophage -] 500 mg PO BID@0700,1630 #60 tablet 04/29/18 Aspirin [ASA -] 81 mg PO DAILY 05/22/18 Atenolol [Tenormin -] 100 mg PO DAILY 05/22/18 Atorvastatin Ca [Lipitor] 20 mg PO HS 05/22/18 Folic Acid - 1 mg PO DAILY 05/22/18 Ranitidine [Zantac -] 150 mg PO BID 05/22/18 Thiamine HCl [Vitamin B1] 100 mg PO DAILY 05/22/18 Ciprofloxacin [Cipro -] 500 mg PO Q12H #20 tablet 05/26/18 - Diagnosis (1) UTI (urinary tract infection) Status: Acute (2) Alcohol dependence with uncomplicated withdrawal Status: Acute (3) Diabetes mellitus treated with oral medication Status: Chronic (4) Essential (primary) hypertension Status: Chronic (5) Hyperlipemia Status: Chronic Qualifiers: Hyperlipidemia type: pure hypercholesterolemia Qualified Code(s): E78.00 - Pure hypercholesterolemia, unspecified; E78.0 - Pure hypercholesterolemia (6) Obesity (BMI 30-39.9) Status: Chronic (7) PPD positive, treated Status: Chronic (8) Depressive disorder Status: Chronic - AMA Did Patient Leave Against Medical Advice: No (F/U with your PCP within 1 week)
== END 2018-05-26 09:44 | disposition home or self-care (01) | DRG 775 ==
LOC: YASAS 10:08 → Y3N 16:24
PROVIDERS: ADMIT Surgery; ATTEND Surgery
PROC: HZ2ZZZZ Detoxification Services for Substance Abuse Treatment (ICD-10-PCS; principal; 2018-05-22)
DX: F10.230 Alcohol dependence with withdrawal, uncomplicated (principal); F34.1 Dysthymic disorder; F19.24 Other psychoactive substance dependence with psychoactive substance-induced mood disorder; I10 Essential (primary) hypertension; E11.9 Type 2 diabetes mellitus without complications; E78.5 Hyperlipidemia, unspecified; N39.0 Urinary tract infection, site not specified; R76.11 Nonspecific reaction to tuberculin skin test without active tuberculosis; E87.6 Hypokalemia; K21.9 Gastro-esophageal reflux disease without esophagitis; E66.9 Obesity, unspecified; Z68.35 Body mass index [BMI] 35.0-35.9, adult; Z79.84 Long term (current) use of oral hypoglycemic drugs; Z87.891 Personal history of nicotine dependence
CPT/HCPCS: 36415; 80053; 81003; 81015; 82962; 85027; 86593; 93005; 93010

== ENCOUNTER 2018-07-31 13:29 | Inpatient (IN) | payer OTHER ==
[2018-07-31 16:37] VITALS: BMI 35.2
--- NOTE | 2018-07-31 20:06 | HP ---
CIWA Score - CIWA Score Nausea/Vomitin-Mild Nausea/No Vomiting Muscle Tremors: 4-Moderate,w/Arms Extend Anxiety: 3 Agitation: 3 Paroxysmal Sweats: 1-Minimal Palms Moist Orientation: 2-Disoriented Date<2 days Tacttile Disturbances: 1-Very Mild Itch/Numbness Auditory Disturbances: 0-None Visual Disturbances: 0-None Headache: 0-None Present CIWA-Ar Total Score: 15 Admission ROS S - HPI Chief Complaint: Alcohol withdrawal symptoms Allergies/Adverse Reactions: Allergies Allergy/AdvReac Type Severity Reaction Status Date / Time RASHAD Inhibitors Allergy Severe Swelling Verified 07/31/18 17:46 lisinopril Allergy Severe Swelling Verified 07/31/18 17:46 History of Present Illness: 53 years old male with about 34 years of alcohol dependence is seeking admission to detox. Patient reports that he was referred from Hospital and reports insignificant period of sobriety. Patient reports that his last was at [facility] a month ago. He has medical history of hypertension, DM type 2, hyperlipidemia, seizure, obesity and fatty liver. He denies suicide attempt and suicidal ideation at this time Exam Limitations: Intoxication - Ebola screening Have you traveled outside of the country in the last 21 days: No (N) Have you had contact with anyone from an Ebola affected area: No Have you been sick,other than usual withdrawal symptoms: No Do you have a fever: No - Review of Systems Constitutional: Chills, Malaise, Changes in sleep EENT: reports: No Symptoms Reported Respiratory: reports: No Symptoms reported Cardiac: reports: No Symptoms Reported GI: reports: Poor Appetite, Poor Fluid Intake, Abdominal cramping : reports: No Symptoms Reported Musculoskeletal: reports: No Symptoms Reported Integumentary: reports: Dryness Neuro: reports: Headache, Tremors Endocrine: reports: No Symptoms Reported Hematology: reports: No Symptoms Reported Psychiatric: reports: Anxious Other Systems: Reviewed and Negative Patient History - Patient Medical History Hx Anemia: No Hx Asthma: No Hx Chronic Obstructive Pulmonary Disease (COPD): No Hx Cancer: No Hx Cardiac Disorders: No Hx Congestive Heart Failure: No Hx Hypertension: Yes (Atenolol and Novasc) Hx Hypercholesterolemia: Yes (Gemfibra) Hx Pacemaker: No HX Cerebrovascular Accident: No Hx Seizures: No Hx Dementia: No Hx Diabetes: Yes (Metformin) Hx Gastrointestinal Disorders: No Hx Liver Disease: No Hx Genitourinary Disorders: No Hx Sexually Transmitted Disorders: No Hx Renal Disease (ESRD): No Hx Thyroid Disease: No Hx Human Immunodeficiency Virus (HIV): No (Negative 2017) Hx Hepatitis C: No Hx Depression: No Hx Suicide Attempt: No (Denies suicidal ideation) Hx Bipolar Disorder: No Hx Schizophrenia: No - Patient Surgical History Past Surgical History: Yes Hx Neurologic Surgery: No Hx Cataract Extraction: No Hx Cardiac Surgery: No Hx Lung Surgery: No Hx Breast Surgery: No Hx Breast Biopsy: No Hx Abdominal Surgery: No Hx Appendectomy: No Hx Cholecystectomy: No Hx Genitourinary Surgery: Yes (left kidney stone removed in 2015) Hx Section: No Hx Orthopedic Surgery: No Other Surgical History: left kidney stone removed 11/2015 Anesthesia Reaction: No - PPD History Previous Implant?: Yes Documented Results: Positive w/proof Implanted On Prior [facility] Admission?: No Results: cxray(-)04/29/18 PPD to be Administered?: No - Reproductive History Patient is a Female of Child Bearing Age (11 -55 yrs old): No (Male) - Smoking Cessation Smoking history: Former smoker Have you smoked in the past 12 months: No If you are a former smoker, when did you quit?: at age 19 Cigars Per Day: 0 Hx Chewing Tobacco Use: No Initiated information on smoking cessation: No - Substance & Tx. History Hx Alcohol Use: Yes Hx Substance Use: No Substance Use Type: Alcohol Hx Substance Use Treatment: No - Substances Abused Alcohol Route: Oral Frequency: Daily Amount used: 1 PINT VODKA/ 2 QTS BEER Age of first use: 19 Date of Last Use: 07/31/18 Family Disease History - Family Disease History Family Disease History: Heart Disease: Mother (HTN), Other: Father (Alcohol), Mother, Brother (Alcohol) Admission Physical Exam BHS - Vital Signs Vital Signs: Vital Signs - 24 hr 07/31/18 16:35 Temperature 97.8 F Pulse Rate 120 H Respiratory 18 Rate Blood Pressure 160/100 - Physical General Appearance: Yes: Moderate Distress, Tremorous, Sweating HEENTM: Yes: EOMI, Normal ENT Inspection, Normocephalic, Normal Voice, FIDEL Respiratory: Yes: Within Normal Limits Neck: Yes: Supple Breast: Yes: Breast Exam Deferred Cardiology: Yes: Tachycardia Abdominal: Yes: Normal Bowel Sounds Genitourinary: Yes: Within Normal Limits Back: Yes: Normal Inspection Musculoskeletal: Yes: Muscle weakness Extremities: Yes: Tremors Neurological: Yes: Alert, Normal Mood/Affect Integumentary: Yes: Warm Lymphatic: Yes: Within Normal Limits - Diagnostic (1) Alcohol dependence with uncomplicated withdrawal Current Visit: Yes Status: Chronic (2) DM2 (diabetes mellitus, type 2) Current Visit: Yes Status: Chronic Qualifiers: Diabetes mellitus mcfp insulin use: without keno terminal operator use Diabetes mellitus complication status: without complication Qualified Code(s): E11.9 - Type 2 diabetes mellitus without complications (3) Essential (primary) hypertension Current Visit: Yes Status: Chronic (4) Hyperlipemia Current Visit: Yes Status: Chronic Qualifiers: Hyperlipidemia type: pure hypercholesterolemia Qualified Code(s): E78.00 - Pure hypercholesterolemia, unspecified; E78.0 - Pure hypercholesterolemia (5) Obesity (BMI 30-39.9) Current Visit: Yes Status: Chronic (6) Seizure disorder Current Visit: No Status: Chronic Cleared for Admission [facility] - Detox or Rehab [facility] Level of Care: Medically Managed Detox Regimen/Protocol: Librium [facility] Breath Alcohol Content Breath Alcohol Content: 0.100 Urine Drug Screen - Results Drug Screen Negative: No Urine Drug Screen Results: BZO-Benzodiazepines
[2018-07-31] MEDS ORDERED: MAGNESIUM CITRATE 300 ML BOTTLE PO PRN (20:15)
[2018-07-31] MEDS ORDERED: ACETAMINOPHEN 325 MG TABLET (FP) PO PRN (20:15)
[2018-07-31] MEDS ORDERED: MENTHOL/PHENOL 1 EACH UD MM PRN (20:15)
[2018-07-31] MEDS ORDERED: MAG HYDROX/AL HYDROX/SIMETH 30 ML UNIT-DOSE CUP PO PRN (20:15)
[2018-07-31] MEDS ORDERED: LOPERAMIDE HCL 2 MG CAPSULE PO PRN (20:15)
[2018-07-31] MEDS ORDERED: MAGNESIUM HYDROX 2400MG/30ML ORAL SUSPENSION 30 ML CUP PO PRN (20:15)
[2018-07-31] MEDS ORDERED: guaiFENesin/D-METHORPHAN HB 10 ML UNIT-DOSE CUPS PO PRN (20:15)
[2018-07-31] MEDS ORDERED: P-EPHED 60MG/TRIPROLIDI 2.5MG TABLET PO PRN (20:15)
[2018-07-31] MEDS: ATENOLOL 50 MG TABLET (FP) PO SCH (20:53)
[2018-07-31] MEDS: amLODIPine BESYLATE 10 MG TABLET (FP) PO SCH (20:53)
[2018-07-31] MEDS: chlordiazePOXIDE HCL 25 MG CAPSULE PO PRN (20:53)
[2018-07-31] MEDS: ASPIRIN 81 MG CHEWABLE TABLETS PO SCH (20:53)
[2018-07-31] MEDS ORDERED: MELATONIN 5 MG TABLETS PO PRN (22:00)
[2018-07-31] MEDS: THIAMINE HCL 100 MG TABLET (FP) PO SCH (23:40)
[2018-07-31] MEDS: ATORVASTATIN CA 40 MG TABLET (FP) PO SCH (23:40)
[2018-07-31] MEDS: chlordiazePOXIDE HCL 25 MG CAPSULE PO SCH (23:40)
[2018-08-01 01:08] LABS: URINE APPEARANCE CLEAR; URINE BILIRUBIN NEGATIVE (<2.0 mg/dL); URINE COLOR YELLOW; URINE GLUCOSE (UA) NEGATIVE (NEGATIVE); URINE KETONE NEGATIVE (NEGATIVE); URINE LEUK ESTERASE NEGATIVE (NEGATIVE); URINE NITRITE POSITIVE (NEGATIVE); URINE PROTEIN 2+ (NEGATIVE); URINE UROBILINOGEN NEGATIVE mg/dL (0.2-1.0)
[2018-08-01 02:32] LABS: EPI CELLS RARE /HPF (FEW); URINE BACTERIA MANY /hpf (NONE SEEN); URINE MUCUS RARE
[2018-08-01 02:34] LABS: AMORP URATES 1+ /hpf (NONE SEEN)
[2018-08-01] MEDS: chlordiazePOXIDE HCL 25 MG CAPSULE PO SCH ×4 (05:47→22:16)
[2018-08-01] MEDS: metFORMIN HCL 500 MG TABLET (FP) PO SCH ×2 (08:15→17:33)
--- NOTE | 2018-08-01 09:23 | EKG ---
Test Reason : Blood Pressure : / mmHG Vent. Rate : 121 BPM Atrial Rate : 121 BPM P-R Int : 162 ms QRS Dur : 076 ms QT Int : 308 ms P-R-T Axes : 050 039 108 degrees QTc Int : 437 ms SINUS TACHYCARDIA NONSPECIFIC T WAVE ABNORMALITY ABNORMAL ECG WHEN COMPARED WITH ECG OF 23-MAY-2018 11:30, VENT. RATE HAS INCREASED BY 42 BPM Confirmed by LISANDRO VARGAS MD ([id number]) on 08/01/2018 9:22:39 AM Referred By: Confirmed By:LISANDRO VARGAS MD
[2018-08-01 10:43] LABS: HEMATOCRIT 37.3 % (35.4-49); HEMOGLOBIN 12.1 GM/dL (11.7-16.9); MCH 28.3 pg (25.7-33.7); MCHC 32.5 g/dl (32.0-35.9); MEAN PLT VOLUME 7.4 fl (7.5-11.1); PLATELET COUNT 204 K/MM3 (134-434); RBC 4.28 M/mm3 (4.00-5.60); RDW 15.4 % (11.9-15.9); WHITE BLOOD COUNT 4.1 K/mm3 (4.0-10.0)
[2018-08-01 10:45] LABS: ALBUMIN 3.3 g/dl (3.4-5.0); ALK PHOS 112 U/L (45-117); ANION GAP 11 MMOL/L (8-16); BILIRUBIN,TOTAL 0.4 mg/dL (0.2-1); BLOOD UREA NITROGEN 10 mg/dL (7-18); CALCIUM 8.7 mg/dL (8.5-10.1); CHLORIDE 102 mmol/L (98-107); CO2 28 mmol/L (21-32); CREATININE 0.8 mg/dL (0.55-1.3); GLUCOSE,RANDOM 200 mg/dL (74-106); POTASSIUM 3.2 mmol/L (3.5-5.1); SGOT/AST 127 U/L (15-37); SGPT/ALT 187 U/L (13-61); SODIUM 140 mmol/L (136-145); TOT PROT 7.3 g/dl (6.4-8.2)
[2018-08-01] MEDS: amLODIPine BESYLATE 10 MG TABLET (FP) PO SCH (10:52)
[2018-08-01] MEDS: ASPIRIN 81 MG CHEWABLE TABLETS PO SCH (10:52)
[2018-08-01] MEDS: PRENATAL VITAMINS W/ FOLIC ACID TABLET (FP) PO SCH (10:52)
[2018-08-01] MEDS: ATENOLOL 50 MG TABLET (FP) PO SCH (10:52)
--- NOTE | 2018-08-01 11:45 | PN ---
[facility] CIWA - CIWA Score Nausea/Vomitin-No Nausea/No Vomiting Muscle Tremors: 4-Moderate,w/Arms Extend Anxiety: 3 Agitation: 3 Paroxysmal Sweats: 3 Orientation: 0-Oriented Tacttile Disturbances: 0-None Auditory Disturbances: 0-None Visual Disturbances: 0-None Headache: 1-Very Mild CIWA-Ar Total Score: 14 S Progress Note (SOAP) Subjective: body aches sweats shakes nausea interrupted sleep Objective: 08/01/18 11:46 Vital Signs Temperature 98.2 F 08/01/18 09:24 Pulse Rate 99 H 08/01/18 09:24 Respiratory Rate 19 08/01/18 09:24 Blood Pressure 157/80 08/01/18 09:24 O2 Sat by Pulse Oximetry (%) Laboratory Tests 07/31/18 08/01/18 08/01/18 17:56 00:05 05:48 WBC RBC Hgb Hct MCV MCH MCHC RDW Plt Count MPV Sodium Potassium Chloride Carbon Dioxide Anion Gap BUN Creatinine Creat Clearance w eGFR POC Glucometer 145 176 Random Glucose Calcium Total Bilirubin AST ALT Alkaline Phosphatase Total Protein Albumin Urine Color Yellow Urine Appearance Clear Urine pH 7.0 D Ur Specific [place] 1.019 Urine Protein 2+ H Urine Glucose (UA) Negative Urine Ketones Negative Urine Blood Negative Urine Nitrite Positive Urine Bilirubin Negative Urine Urobilinogen Negative Ur Leukocyte Esterase Negative Urine WBC (Auto) <1 Urine RBC (Auto) <1 Ur Epithelial Cells Rare Amorphous Urates 1+ Urine Bacteria Many Urine Mucus Rare 08/01/18 08/01/18 07:00 07:00 WBC 4.1 RBC 4.28 Hgb 12.1 Hct 37.3 MCV 87.0 MCH 28.3 D MCHC 32.5 RDW 15.4 Plt Count 204 D MPV 7.4 L Sodium 140 Potassium 3.2 L Chloride 102 Carbon Dioxide 28 Anion Gap 11 BUN 10 Creatinine 0.8 Creat Clearance w eGFR > 60 POC Glucometer Random Glucose 200 H Calcium 8.7 Total Bilirubin 0.4 AST 127 H ALT 187 H Alkaline Phosphatase 112 Total Protein 7.3 Albumin 3.3 L Urine Color Urine Appearance Urine pH Ur Specific [place] Urine Protein Urine Glucose (UA) Urine Ketones Urine Blood Urine Nitrite Urine Bilirubin Urine Urobilinogen Ur Leukocyte Esterase Urine WBC (Auto) Urine RBC (Auto) Ur Epithelial Cells Amorphous Urates Urine Bacteria Urine Mucus elevated ast/alt; d/c tylenol repeat labs aaox3 ambulating no acute distress Assessment: 08/01/18 11:49 withdrawal sx Plan: continue detox increase fluids f/u labs
[2018-08-01] MEDS: ATORVASTATIN CA 40 MG TABLET (FP) PO SCH (22:17)
[2018-08-01] MEDS: IBUPROFEN 400 MG TABLET (FP) PO PRN (22:18)
[2018-08-01] MEDS: THIAMINE HCL 100 MG TABLET (FP) PO SCH (22:19)
[2018-08-01] MEDS: ATORVASTATIN CA 20 MG TABLET (FP) PO SCH (23:06)
[2018-08-02] MEDS: chlordiazePOXIDE HCL 25 MG CAPSULE PO PRN (02:05)
[2018-08-02] MEDS: IBUPROFEN 400 MG TABLET (FP) PO PRN ×2 (04:20→21:13)
[2018-08-02] MEDS: chlordiazePOXIDE HCL 25 MG CAPSULE PO SCH ×3 (06:17→17:03)
[2018-08-02] MEDS: metFORMIN HCL 500 MG TABLET (FP) PO SCH ×2 (06:19→17:03)
[2018-08-02] MEDS: amLODIPine BESYLATE 10 MG TABLET (FP) PO SCH (10:19)
[2018-08-02] MEDS: ASPIRIN 81 MG CHEWABLE TABLETS PO SCH (10:19)
[2018-08-02] MEDS: ATENOLOL 50 MG TABLET (FP) PO SCH (10:19)
[2018-08-02] MEDS: PRENATAL VITAMINS W/ FOLIC ACID TABLET (FP) PO SCH (10:19)
[2018-08-02 10:29] LABS: SGOT/AST 111 U/L (15-37); SGPT/ALT 161 U/L (13-61)
[2018-08-02 10:38] LABS: INR 1.05 (0.83-1.09); PROTHROMBIN TIME (PATIENT) 12.4 SEC (9.7-13.0)
[2018-08-02] MEDS ORDERED: POTASSIUM CHLORIDE TABS 20 MEQ TABLET.ER (FP) PO ONE (10:50)
--- NOTE | 2018-08-02 11:38 | PN ---
S CIWA - CIWA Score Nausea/Vomitin-No Nausea/No Vomiting Muscle Tremors: 4-Moderate,w/Arms Extend Anxiety: 3 Agitation: 3 Paroxysmal Sweats: 3 Orientation: 0-Oriented Tacttile Disturbances: 0-None Auditory Disturbances: 0-None Visual Disturbances: 0-None Headache: 0-None Present CIWA-Ar Total Score: 13 BHS Progress Note (SOAP) Subjective: sweats irritable agitation interrupted sleep Objective: 08/02/18 11:35 Vital Signs Temperature 97.9 F 08/02/18 09:24 Pulse Rate 91 H 08/02/18 09:24 Respiratory Rate 20 08/02/18 09:24 Blood Pressure 144/81 08/02/18 09:24 O2 Sat by Pulse Oximetry (%) Laboratory Tests 07/31/18 08/01/18 08/01/18 17:56 00:05 05:48 WBC RBC Hgb Hct MCV MCH MCHC RDW Plt Count MPV PT with INR INR Sodium Potassium Chloride Carbon Dioxide Anion Gap BUN Creatinine Creat Clearance w eGFR POC Glucometer 145 176 Random Glucose Calcium Total Bilirubin AST ALT Alkaline Phosphatase Total Protein Albumin Urine Color Yellow Urine Appearance Clear Urine pH 7.0 D Ur Specific [place] 1.019 Urine Protein 2+ H Urine Glucose (UA) Negative Urine Ketones Negative Urine Blood Negative Urine Nitrite Positive Urine Bilirubin Negative Urine Urobilinogen Negative Ur Leukocyte Esterase Negative Urine WBC (Auto) <1 Urine RBC (Auto) <1 Ur Epithelial Cells Rare Amorphous Urates 1+ Urine Bacteria Many Urine Mucus Rare RPR Titer 08/01/18 08/01/18 08/01/18 07:00 07:00 07:00 WBC 4.1 RBC 4.28 Hgb 12.1 Hct 37.3 MCV 87.0 MCH 28.3 D MCHC 32.5 RDW 15.4 Plt Count 204 D MPV 7.4 L PT with INR INR Sodium 140 Potassium 3.2 L Chloride 102 Carbon Dioxide 28 Anion Gap 11 BUN 10 Creatinine 0.8 Creat Clearance w eGFR > 60 POC Glucometer Random Glucose 200 H Calcium 8.7 Total Bilirubin 0.4 AST 127 H ALT 187 H Alkaline Phosphatase 112 Total Protein 7.3 Albumin 3.3 L Urine Color Urine Appearance Urine pH Ur Specific [place] Urine Protein Urine Glucose (UA) Urine Ketones Urine Blood Urine Nitrite Urine Bilirubin Urine Urobilinogen Ur Leukocyte Esterase Urine WBC (Auto) Urine RBC (Auto) Ur Epithelial Cells Amorphous Urates Urine Bacteria Urine Mucus RPR Titer Nonreactive 08/01/18 08/02/18 08/02/18 16:45 06:18 07:00 WBC RBC Hgb Hct MCV MCH MCHC RDW Plt Count MPV PT with INR 12.40 INR 1.05 Sodium Potassium Chloride Carbon Dioxide Anion Gap BUN Creatinine Creat Clearance w eGFR POC Glucometer 219 213 Random Glucose Calcium Total Bilirubin AST ALT Alkaline Phosphatase Total Protein Albumin Urine Color Urine Appearance Urine pH Ur Specific [place] Urine Protein Urine Glucose (UA) Urine Ketones Urine Blood Urine Nitrite Urine Bilirubin Urine Urobilinogen Ur Leukocyte Esterase Urine WBC (Auto) Urine RBC (Auto) Ur Epithelial Cells Amorphous Urates Urine Bacteria Urine Mucus RPR Titer 08/02/18 07:00 WBC RBC Hgb Hct MCV MCH MCHC RDW Plt Count MPV PT with INR INR Sodium Potassium Chloride Carbon Dioxide Anion Gap BUN Creatinine Creat Clearance w eGFR POC Glucometer Random Glucose Calcium Total Bilirubin AST 111 H ALT 161 H Alkaline Phosphatase Total Protein Albumin Urine Color Urine Appearance Urine pH Ur Specific [place] Urine Protein Urine Glucose (UA) Urine Ketones Urine Blood Urine Nitrite Urine Bilirubin Urine Urobilinogen Ur Leukocyte Esterase Urine WBC (Auto) Urine RBC (Auto) Ur Epithelial Cells Amorphous Urates Urine Bacteria Urine Mucus RPR Titer potassium 3.2; kdur [id number] ordered liver enzymes improving aaox3 ambulating no acute distress Assessment: 08/02/18 11:36 withdrawal sx Plan: continue detox kdur ordered increase fluids
[2018-08-02] MEDS: THIAMINE HCL 100 MG TABLET (FP) PO SCH (22:14)
[2018-08-02] MEDS: ATORVASTATIN CA 20 MG TABLET (FP) PO SCH (22:14)
[2018-08-02] MEDS: chlordiazePOXIDE 5 MG CAPSULE PO SCH (22:14)
[2018-08-03] MEDS: chlordiazePOXIDE 5 MG CAPSULE PO SCH ×2 (06:10→10:29)
[2018-08-03] MEDS: metFORMIN HCL 500 MG TABLET (FP) PO SCH (06:53)
[2018-08-03 09:49] VITALS: BP 139/88; PULSE 85; TEMP 97.9
[2018-08-03] MEDS ORDERED: POTASSIUM CHLORIDE TABS 20 MEQ TABLET.ER (FP) PO SCH (10:00)
[2018-08-03] MEDS: ATENOLOL 50 MG TABLET (FP) PO SCH (10:29)
[2018-08-03] MEDS: PRENATAL VITAMINS W/ FOLIC ACID TABLET (FP) PO SCH (10:29)
[2018-08-03] MEDS: amLODIPine BESYLATE 10 MG TABLET (FP) PO SCH (10:29)
[2018-08-03] MEDS: ASPIRIN 81 MG CHEWABLE TABLETS PO SCH (10:29)
--- NOTE | 2018-08-03 14:48 | PN ---
[facility] Progress Note (SOAP) Subjective: Requesting to leave to go to [facility] to go get shoes and clothes Denies complaints Objective: 08/03/18 14:44 A & O x 3 Anxious agitated restless Vital Signs Temperature 97.9 F 08/03/18 09:49 Pulse Rate 85 08/03/18 09:49 Respiratory Rate 18 08/03/18 09:49 Blood Pressure 139/88 08/03/18 09:49 O2 Sat by Pulse Oximetry (%) Assessment: 08/03/18 14:45 withdrawal sx Anxiety Plan: continue detox This provider and Counselor Gloria told pt that we will attempt to get clothes and shoes for him Encouraged pt to stay to complete detox
--- NOTE | 2018-08-03 14:56 | PN ---
[facility] Progress Note Note: Pt very anxious, stating he wants to go to [facility] to go get shoes and clothes. pt also requesting refill of his meds. Encourgaed pt to stay to complete detox and that we will attempt to get him clothes. Also informed pt that he will get prescription refills sent to [place] [facility] at the time of d/c or wheever he is ready to leave. Pt will verbalize understanding one minute and asks again to leave the next. Explained to pt that the weather is cold and unsafe to go into without appropriate clothing for the weatehr. Spoke with pt numerous times to encourage him to stay. Pt insisted on leaving to his RN. Pt left unit against medical advice.
--- NOTE | 2018-08-03 14:59 | DS ---
[facility] Detox Discharge Summary Admission Date: 07/31/18 Discharge Date: 08/03/18 - History Additional Comments: Pt left the unit AMA - Physical Exam Results Vital Signs: Vital Signs Temperature 97.9 F 08/03/18 09:49 Pulse Rate 85 08/03/18 09:49 Respiratory Rate 18 08/03/18 09:49 Blood Pressure 139/88 08/03/18 09:49 O2 Sat by Pulse Oximetry (%) - Medication Discharge Medications: Ambulatory Orders Amlodipine Besylate [Norvasc -] 10 mg PO DAILY #30 tablet 04/29/18 metFORMIN HCL [Glucophage -] 500 mg PO BID@0700,1630 #60 tablet 04/29/18 Aspirin [ASA -] 81 mg PO DAILY 05/22/18 Atenolol [Tenormin -] 100 mg PO DAILY 05/22/18 Atorvastatin Ca [Lipitor] 20 mg PO HS 05/22/18 - Diagnosis (1) Alcohol dependence with uncomplicated withdrawal Current Visit: Yes Status: Chronic (2) DM2 (diabetes mellitus, type 2) Current Visit: Yes Status: Chronic Qualifiers: Diabetes mellitus fdc insulin use: without terminal gauger supervisor use Diabetes mellitus complication status: without complication Qualified Code(s): E11.9 - Type 2 diabetes mellitus without complications (3) Essential (primary) hypertension Current Visit: Yes Status: Chronic (4) Hyperlipemia Current Visit: Yes Status: Chronic Qualifiers: Hyperlipidemia type: pure hypercholesterolemia Qualified Code(s): E78.00 - Pure hypercholesterolemia, unspecified; E78.0 - Pure hypercholesterolemia (5) Obesity (BMI 30-39.9) Current Visit: Yes Status: Chronic (6) UTI (urinary tract infection) Current Visit: No Status: Acute (7) MDD (major depressive disorder) Current Visit: No Status: Chronic (8) PPD positive, treated Current Visit: No Status: Chronic (9) Seizure disorder Current Visit: No Status: Chronic - AMA Did Patient Leave Against Medical Advice: Yes
[2018-08-03] MEDS ORDERED: chlordiazePOXIDE HCL 10 MG CAPSULE PO SCH (23:00)
== END 2018-08-03 13:46 | disposition left against medical advice (07) | DRG 770 ==
LOC: YASAS 13:29 → Y6N 19:33
PROC: HZ2ZZZZ Detoxification Services for Substance Abuse Treatment (ICD-10-PCS; principal; 2018-07-31)
DX: F10.230 Alcohol dependence with withdrawal, uncomplicated (principal); F33.9 Major depressive disorder, recurrent, unspecified; I10 Essential (primary) hypertension; E78.00 Pure hypercholesterolemia, unspecified; E87.6 Hypokalemia; E11.9 Type 2 diabetes mellitus without complications; Z79.84 Long term (current) use of oral hypoglycemic drugs; G40.909 Epilepsy, unspecified, not intractable, without status epilepticus; N39.0 Urinary tract infection, site not specified; E66.9 Obesity, unspecified; Z68.30 Body mass index [BMI] 30.0-30.9, adult; Z59.0 Homelessness; Z88.8 Allergy status to other drugs, medicaments and biological substances
CPT/HCPCS: 36415; 80053; 81003; 81015; 82962; 84450; 84460; 85027; 85610; 86593; 93005; 93010

== ENCOUNTER 2018-09-27 10:18 | Inpatient (IN) | payer OTHER ==
[2018-09-27 10:47] VITALS: BMI 40.1
--- NOTE | 2018-09-27 16:56 | HP ---
CIWA Score Nausea/Vomitin Muscle Tremors: None Anxiety: 2 Agitation: 0-Normal Activity Paroxysmal Sweats: 3 Orientation: 2-Disoriented Date<2 days Tacttile Disturbances: 3-Moderate Itch/Numb/Burn Auditory Disturbances: 0-None Visual Disturbances: 0-None Headache: 0-None Present CIWA-Ar Total Score: 13 - Admission Criteria OASAS Guidelines: Admission for Medically Managed Detox: Requires at least one of the followin. CIWA greater than 12 2. Seizures within the past 24 hours 3. Delirium tremens within the past 24 hours 4. Hallucinations within the past 24 hours 5. Acute intervention needed for co occurring medical disorder 6. Acute intervention needed for co occurring psychiatric disorder 7. Severe withdrawal that cannot be handled at a lower level of care (continued vomiting, continued diarrhea, abnormal vital signs) requiring intravenous medication and/or fluids 8. Admission ROS S - [facility] Chief Complaint: ETOH WITHDRAWAL SYMPTOMS Allergies/Adverse Reactions: Allergies Allergy/AdvReac Type Severity Reaction Status Date / Time RASHAD Inhibitors Allergy Severe Swelling Verified 07/31/18 17:46 lisinopril Allergy Severe Swelling Verified 07/31/18 17:46 History of Present Illness: PATIENT PRESENTS INTOXICATED WITH AUTUMN 0.335. HAS LONG HX OF ETOH USE. PATIENT HAS HAD MULTIPLE ADMISSION TO [facility] FOR ALCOHOLISM AND IS HOMELESS. LIVES IN [place] AND WAS SENT TO ER RECENTLY, EXACT DATE UNSURE. UDS +BZO. PATIENT IS A + BINGE DRINKER, +H/O FALLS, DENIES H/O SEIZURES. REPORTS DRINKING ALL DAY WHEN HE CAN. PATIENT PMH DM, HTN, HLD AND +PPD. BLOOD SUGAR 163. PATIENT DENIES SI/ HI AND SUICIDE ATTEMPTS. Exam Limitations: Intoxication - Ebola screening Have you traveled outside of the country in the last 21 days: No Have you had contact with anyone from an Ebola affected area: No Have you been sick,other than usual withdrawal symptoms: No Do you have a fever: No - Review of Systems Constitutional: Changes in sleep EENT: reports: No Symptoms Reported Respiratory: reports: No Symptoms reported Cardiac: reports: No Symptoms Reported GI: reports: Diarrhea, Poor Fluid Intake, Abdominal cramping : reports: Frequency Musculoskeletal: reports: No Symptoms Reported Integumentary: reports: Sweating Neuro: reports: Numbness, Tingling, Unsteady Gait Endocrine: reports: No Symptoms Reported Hematology: reports: No Symptoms Reported Psychiatric: reports: Anxious, other (UNSURE OF DATE.) Patient History - Patient Medical History Hx Anemia: No Hx Asthma: No Hx Chronic Obstructive Pulmonary Disease (COPD): No Hx Cancer: No Hx Cardiac Disorders: No Hx Congestive Heart Failure: No Hx Hypertension: Yes (non compliant with meds.) Hx Hypercholesterolemia: Yes (Gemfibra) Hx Pacemaker: No HX Cerebrovascular Accident: No Hx Seizures: No Hx Dementia: No Hx Diabetes: Yes (Type II) Hx Gastrointestinal Disorders: No Hx Liver Disease: No Hx Genitourinary Disorders: No Hx Sexually Transmitted Disorders: No Hx Renal Disease (ESRD): No Hx Thyroid Disease: No Hx Human Immunodeficiency Virus (HIV): No (Negative 2017) Hx Hepatitis C: No Hx Depression: No Hx Suicide Attempt: No Hx Bipolar Disorder: No Hx Schizophrenia: No - Patient Surgical History Past Surgical History: Yes Hx Neurologic Surgery: No Hx Cataract Extraction: No Hx Cardiac Surgery: No Hx Lung Surgery: No Hx Breast Surgery: No Hx Breast Biopsy: No Hx Abdominal Surgery: No Hx Appendectomy: No Hx Cholecystectomy: No Hx Genitourinary Surgery: Yes (left kidney stone removed in 2015) Hx Section: No Hx Orthopedic Surgery: No Other Surgical History: left kidney stone removed 11/2015 Anesthesia Reaction: No - PPD History Previous Implant?: Yes Documented Results: Positive w/proof Implanted On Prior [facility] Admission?: No Results: cxray(-)04/29/18 PPD to be Administered?: No - Smoking Cessation Smoking history: Former smoker Have you smoked in the past 12 months: No Aproximately how many cigarettes per day: 1 If you are a former smoker, when did you quit?: at age 19 Cigars Per Day: 1 Hx Chewing Tobacco Use: No Initiated information on smoking cessation: No - Substance & Tx. History Hx Alcohol Use: Yes Hx Substance Use: No Substance Use Type: Alcohol Hx Substance Use Treatment: Yes - Substances Abused Alcohol Route: Oral Frequency: Daily Amount used: 1 CASE OF BEER Age of first use: 19 Date of Last Use: 09/27/18 Family Disease History - Family Disease History Family Disease History: Heart Disease: Mother (HTN), Other: Father (Alcohol), Mother, Brother (Alcohol) Admission Physical Exam [facility] - Vital Signs Vital Signs: Vital Signs - 24 hr 09/27/18 10:36 Temperature 98.1 F Pulse Rate 108 H Respiratory 20 Rate Blood Pressure 140/80 - Physical General Appearance: Yes: Disheveled, Intoxicated, Obese, Anxious HEENTM: Yes: EOMI, Hearing grossly Normal, Normocephalic, FIDEL, Pharynx Normal Respiratory: Yes: Chest Non-Tender, Lungs Clear, Normal Breath Sounds, No Respiratory Distress, No Accessory Muscle Use Neck: Yes: No masses,lesions,Nodules, Supple Breast: Yes: Breast Exam Deferred Cardiology: Yes: Regular Rhythm, Regular Rate, S1, S2 Abdominal: Yes: Normal Bowel Sounds, Non Tender, Soft Genitourinary: Yes: Frequency Back: Yes: Normal Inspection Musculoskeletal: Yes: full range of Motion, Other (UNSTEADY GAIT DUE TO INTOXICATION) Extremities: Yes: Normal Inspection Neurological: Yes: inspector structural bonding II-XII NML intact, Alert, Other (ANXIOUS) Integumentary: Yes: Normal Color, Warm, Moist Lymphatic: Yes: Within Normal Limits - Diagnostic (1) Alcohol dependence with uncomplicated withdrawal Current Visit: Yes Status: Acute (2) DM2 (diabetes mellitus, type 2) Current Visit: Yes Status: Chronic Qualifiers: Diabetes mellitus chcf insulin use: without chcf use Diabetes mellitus complication status: without complication Qualified Code(s): E11.9 - Type 2 diabetes mellitus without complications (3) Essential (primary) hypertension Current Visit: Yes Status: Chronic (4) Hyperlipemia Current Visit: Yes Status: Chronic Qualifiers: Hyperlipidemia type: pure hypercholesterolemia Qualified Code(s): E78.00 - Pure hypercholesterolemia, unspecified; E78.0 - Pure hypercholesterolemia (5) Alcohol-induced mood disorder Current Visit: Yes Status: Suspected Cleared for Admission [facility] - Detox or Rehab [facility] Level of Care: Medically Managed Detox Regimen/Protocol: Librium [facility] Breath Alcohol Content Breath Alcohol Content: 0.272 Urine Drug Screen - Results Drug Screen Negative: No Urine Drug Screen Results: BZO-Benzodiazepines
[2018-09-27] MEDS ORDERED: IBUPROFEN 400 MG TABLET (FP) PO PRN (17:08)
[2018-09-27] MEDS ORDERED: MAGNESIUM HYDROX 2400MG/30ML ORAL SUSPENSION 30 ML CUP PO PRN (17:08)
[2018-09-27] MEDS ORDERED: P-EPHED 60MG/TRIPROLIDI 2.5MG TABLET PO PRN (17:08)
[2018-09-27] MEDS ORDERED: LOPERAMIDE HCL 2 MG CAPSULE PO PRN (17:08)
[2018-09-27] MEDS ORDERED: MAGNESIUM CITRATE 300 ML BOTTLE PO PRN (17:08)
[2018-09-27] MEDS ORDERED: hydrOXYzine PAMOATE 50 MG CAPSULE (FP) PO PRN (17:08)
[2018-09-27] MEDS ORDERED: MENTHOL/PHENOL 1 EACH UD MM PRN (17:08)
[2018-09-27] MEDS ORDERED: MAG HYDROX/AL HYDROX/SIMETH 30 ML UNIT-DOSE CUP PO PRN (17:08)
[2018-09-27] MEDS ORDERED: guaiFENesin/D-METHORPHAN HB 10 ML UNIT-DOSE CUPS PO PRN (17:08)
[2018-09-27] MEDS ORDERED: ACETAMINOPHEN 325 MG TABLET (FP) PO PRN (17:08)
[2018-09-27] MEDS ORDERED: chlordiazePOXIDE HCL 25 MG CAPSULE PO PRN (17:13)
[2018-09-27] MEDS ORDERED: MELATONIN 5 MG TABLETS PO PRN (22:00)
[2018-09-27] MEDS: chlordiazePOXIDE HCL 25 MG CAPSULE PO SCH (22:36)
[2018-09-27] MEDS: THIAMINE HCL 100 MG TABLET (FP) PO SCH (22:36)
[2018-09-28] MEDS: chlordiazePOXIDE HCL 25 MG CAPSULE PO SCH ×4 (06:29→22:29)
[2018-09-28] MEDS: metFORMIN HCL 500 MG TABLET (FP) PO SCH ×2 (07:55→17:24)
[2018-09-28] MEDS: ASPIRIN 81 MG CHEWABLE TABLETS PO SCH (10:13)
[2018-09-28] MEDS: PRENATAL VITAMINS W/ FOLIC ACID TABLET (FP) PO SCH (10:13)
[2018-09-28] MEDS: amLODIPine BESYLATE 10 MG TABLET (FP) PO SCH (10:13)
[2018-09-28 10:48] LABS: HEMATOCRIT 37.4 % (35.4-49); RDW 15.5 % (11.9-15.9); WHITE BLOOD COUNT 3.8 K/mm3 (4.0-10.0)
[2018-09-28 10:53] LABS: HEMOGLOBIN 11.9 GM/dL (11.7-16.9); MCH 27.7 pg (25.7-33.7); MCHC 31.9 g/dl (32.0-35.9); MEAN PLT VOLUME 6.8 fl (7.5-11.1); PLATELET COUNT 221 K/MM3 (134-434); RBC 4.29 M/mm3 (4.00-5.60)
--- NOTE | 2018-09-28 10:53 | PN ---
[facility] CIWA - CIWA Score Nausea/Vomitin Muscle Tremors: 2 Anxiety: 2 Agitation: 2 Paroxysmal Sweats: 2 Orientation: 0-Oriented Tacttile Disturbances: 0-None Auditory Disturbances: 0-None Visual Disturbances: 0-None Headache: 1-Very Mild CIWA-Ar Total Score: 11 [facility] Progress Note (SOAP) Subjective: Interrupted sleep and generalized weakness Objective: 09/28/18 10:52 Vital Signs Temperature 98.6 F 09/28/18 09:41 Pulse Rate 117 H 09/28/18 09:41 Respiratory Rate 18 09/28/18 09:41 Blood Pressure 139/89 09/28/18 09:41 O2 Sat by Pulse Oximetry (%) Laboratory Last Values POC Glucometer 150 UNITS (80-120) 09/28/18 06:21 Labs pending Assessment: 09/28/18 10:52 Withdrawal sx Plan: Continue detox
[2018-09-28 11:04] LABS: ALBUMIN 3.1 g/dl (3.4-5.0); ALK PHOS 113 U/L (45-117); ANION GAP 8 MMOL/L (8-16); BILIRUBIN,TOTAL 0.2 mg/dL (0.2-1); BLOOD UREA NITROGEN 20 mg/dL (7-18); CALCIUM 7.6 mg/dL (8.5-10.1); CHLORIDE 109 mmol/L (98-107); CO2 25 mmol/L (21-32); CREATININE 0.8 mg/dL (0.55-1.3); GLUCOSE,RANDOM 145 mg/dL (74-106); SGOT/AST 94 U/L (15-37); SGPT/ALT 92 U/L (13-61); SODIUM 142 mmol/L (136-145); TOT PROT 7.3 g/dl (6.4-8.2)
[2018-09-28] MEDS: ATENOLOL 50 MG TABLET (FP) PO SCH (11:16)
[2018-09-28] MEDS: THIAMINE HCL 100 MG TABLET (FP) PO SCH (22:29)
[2018-09-29] MEDS: chlordiazePOXIDE HCL 25 MG CAPSULE PO SCH ×3 (05:55→17:33)
[2018-09-29] MEDS: metFORMIN HCL 500 MG TABLET (FP) PO SCH ×2 (07:55→17:20)
[2018-09-29] MEDS: PRENATAL VITAMINS W/ FOLIC ACID TABLET (FP) PO SCH (10:26)
[2018-09-29] MEDS: ATENOLOL 50 MG TABLET (FP) PO SCH (10:27)
[2018-09-29] MEDS: ASPIRIN 81 MG CHEWABLE TABLETS PO SCH (10:27)
[2018-09-29] MEDS: amLODIPine BESYLATE 10 MG TABLET (FP) PO SCH (10:27)
--- NOTE | 2018-09-29 16:01 | PN ---
[facility] CIWA - CIWA Score Nausea/Vomitin-No Nausea/No Vomiting Muscle Tremors: 2 Anxiety: 2 Agitation: 3 Paroxysmal Sweats: 2 Orientation: 0-Oriented Tacttile Disturbances: 0-None Auditory Disturbances: 0-None Visual Disturbances: 0-None Headache: 0-None Present CIWA-Ar Total Score: 9 S Progress Note (SOAP) Subjective: Sweating, interrupted sleep Objective: 09/29/18 15:55 Last Vital Signs Temp Pulse Resp BP Pulse Ox 99 F 87 18 101/70 09/29/18 13:16 09/29/18 13:16 09/29/18 13:16 09/29/18 13:16 Laboratory Tests 09/28/18 09/28/18 09/28/18 06:21 07:40 07:40 WBC 3.8 L RBC 4.29 Hgb 11.9 Hct 37.4 MCV 87.0 MCH 27.7 MCHC 31.9 L RDW 15.5 Plt Count 221 MPV 6.8 L Sodium 142 Potassium 4.0 Chloride 109 H Carbon Dioxide 25 Anion Gap 8 BUN 20 H Creatinine 0.8 Creat Clearance w eGFR > 60 POC Glucometer 150 Random Glucose 145 H Calcium 7.6 L Total Bilirubin 0.2 AST 94 H ALT 92 H Alkaline Phosphatase 113 Total Protein 7.3 Albumin 3.1 L RPR Titer 09/28/18 09/28/18 09/29/18 07:40 16:55 05:55 WBC RBC Hgb Hct MCV MCH MCHC RDW Plt Count MPV Sodium Potassium Chloride Carbon Dioxide Anion Gap BUN Creatinine Creat Clearance w eGFR POC Glucometer 134 182 Random Glucose Calcium Total Bilirubin AST ALT Alkaline Phosphatase Total Protein Albumin RPR Titer Nonreactive Labs reviewed: bun 20, calcium 7.6, elevated glucose due to DMT2 Assessment: 09/29/18 15:58 Withdrawal symptoms Noted with azotemia, hypocalcemia and hyperglycemia Plan: Continue detox Azotemia: encouraged PO water intake Hypocalcemia: start calcium carbonate 650mg PO bid, repeat serum calcium in 2 days Hyperglycemia secondary to DMT2: continue present regimen
[2018-09-29] MEDS: chlordiazePOXIDE 5 MG CAPSULE PO SCH (22:15)
[2018-09-29] MEDS: THIAMINE HCL 100 MG TABLET (FP) PO SCH (22:15)
[2018-09-29] MEDS: CALCIUM CARBONATE 650 MG TABLET PO SCH (22:15)
[2018-09-30] MEDS: chlordiazePOXIDE 5 MG CAPSULE PO SCH ×3 (05:10→17:10)
[2018-09-30] MEDS: metFORMIN HCL 500 MG TABLET (FP) PO SCH ×2 (06:20→17:10)
--- NOTE | 2018-09-30 09:45 | PN ---
[facility] Progress Note (SOAP) Subjective: feeling better no tremor sleep better at night social with peers in hallway and day room Objective: 09/30/18 09:44 Vital Signs Temperature 97.4 F L 09/30/18 05:56 Pulse Rate 73 09/30/18 05:56 Respiratory Rate 18 09/30/18 06:22 Blood Pressure 125/67 09/30/18 05:56 O2 Sat by Pulse Oximetry (%) Laboratory Last Values WBC 3.8 K/mm3 (4.0-10.0) L 09/28/18 07:40 RBC 4.29 M/mm3 (4.00-5.60) 09/28/18 07:40 Hgb 11.9 GM/dL (11.7-16.9) 09/28/18 07:40 Hct 37.4 % (35.4-49) 09/28/18 07:40 MCV 87.0 fl (80-96) 09/28/18 07:40 MCH 27.7 pg (25.7-33.7) 09/28/18 07:40 MCHC 31.9 g/dl (32.0-35.9) L 09/28/18 07:40 RDW 15.5 % (11.9-15.9) 09/28/18 07:40 Plt Count 221 K/MM3 (134-434) 09/28/18 07:40 MPV 6.8 fl (7.5-11.1) L 09/28/18 07:40 Sodium 142 mmol/L (136-145) 09/28/18 07:40 Potassium 4.0 mmol/L (3.5-5.1) 09/28/18 07:40 Chloride 109 mmol/L (98-107) H 09/28/18 07:40 Carbon Dioxide 25 mmol/L (21-32) 09/28/18 07:40 Anion Gap 8 MMOL/L (8-16) 09/28/18 07:40 BUN 20 mg/dL (7-18) H 09/28/18 07:40 Creatinine 0.8 mg/dL (0.55-1.3) 09/28/18 07:40 Creat Clearance w eGFR > 60 (>60) 09/28/18 07:40 POC Glucometer 174 UNITS (80-120) 09/30/18 05:09 Random Glucose 145 mg/dL (74-106) H 09/28/18 07:40 Calcium 7.6 mg/dL (8.5-10.1) L 09/28/18 07:40 Total Bilirubin 0.2 mg/dL (0.2-1) 09/28/18 07:40 AST 94 U/L (15-37) H 09/28/18 07:40 ALT 92 U/L (13-61) H 09/28/18 07:40 Alkaline Phosphatase 113 U/L (45-117) 09/28/18 07:40 Total Protein 7.3 g/dl (6.4-8.2) 09/28/18 07:40 Albumin 3.1 g/dl (3.4-5.0) L 09/28/18 07:40 RPR Titer Nonreactive (NONREACTIVE) 09/28/18 07:40 lab noted low calcium Assessment: 09/30/18 09:45 mild alcohol withdrawal sx Plan: medically supervised detox
[2018-09-30] MEDS: amLODIPine BESYLATE 10 MG TABLET (FP) PO SCH (10:19)
[2018-09-30] MEDS: CALCIUM CARBONATE 650 MG TABLET PO SCH ×2 (10:19→22:21)
[2018-09-30] MEDS: ATENOLOL 50 MG TABLET (FP) PO SCH (10:19)
[2018-09-30] MEDS: ASPIRIN 81 MG CHEWABLE TABLETS PO SCH (10:19)
[2018-09-30] MEDS: PRENATAL VITAMINS W/ FOLIC ACID TABLET (FP) PO SCH (10:19)
[2018-09-30] MEDS: THIAMINE HCL 100 MG TABLET (FP) PO SCH (22:21)
[2018-09-30] MEDS: chlordiazePOXIDE HCL 10 MG CAPSULE PO SCH (22:21)
[2018-10-01 06:14] VITALS: BP 149/98; PULSE 96; TEMP 97.3
[2018-10-01] MEDS: metFORMIN HCL 500 MG TABLET (FP) PO SCH (06:14)
[2018-10-01] MEDS: chlordiazePOXIDE HCL 10 MG CAPSULE PO SCH (06:14)
--- NOTE | 2018-10-01 11:37 | DS ---
[facility] Detox Discharge Summary Admission Date: 09/27/18 Discharge Date: 10/01/18 - History Present History: Alcohol Dependence Additional Comments: 53 years old male admitted on 09/27/18 for alcohol withdrawal stability completed detox regimen tolerated well alert no acute distress [facility] Pertinent Past History: patient preferred to [facility] today recommend path to sobriety through [facility] - Physical Exam Results Vital Signs: Vital Signs Temperature 97.3 F L 10/01/18 06:13 Pulse Rate 96 H 10/01/18 06:13 Respiratory Rate 18 10/01/18 06:13 Blood Pressure 149/98 10/01/18 06:13 O2 Sat by Pulse Oximetry (%) Pertinent Admission Physical Exam Findings: alcohol withdrawal sx Vital Signs Temperature 97.3 F L 10/01/18 06:13 Pulse Rate 96 H 10/01/18 06:13 Respiratory Rate 18 10/01/18 06:13 Blood Pressure 149/98 10/01/18 06:13 O2 Sat by Pulse Oximetry (%) Laboratory Last Values WBC 3.8 K/mm3 (4.0-10.0) L 09/28/18 07:40 RBC 4.29 M/mm3 (4.00-5.60) 09/28/18 07:40 Hgb 11.9 GM/dL (11.7-16.9) 09/28/18 07:40 Hct 37.4 % (35.4-49) 09/28/18 07:40 MCV 87.0 fl (80-96) 09/28/18 07:40 MCH 27.7 pg (25.7-33.7) 09/28/18 07:40 MCHC 31.9 g/dl (32.0-35.9) L 09/28/18 07:40 RDW 15.5 % (11.9-15.9) 09/28/18 07:40 Plt Count 221 K/MM3 (134-434) 09/28/18 07:40 MPV 6.8 fl (7.5-11.1) L 09/28/18 07:40 Sodium 142 mmol/L (136-145) 09/28/18 07:40 Potassium 4.0 mmol/L (3.5-5.1) 09/28/18 07:40 Chloride 109 mmol/L (98-107) H 09/28/18 07:40 Carbon Dioxide 25 mmol/L (21-32) 09/28/18 07:40 Anion Gap 8 MMOL/L (8-16) 09/28/18 07:40 BUN 20 mg/dL (7-18) H 09/28/18 07:40 Creatinine 0.8 mg/dL (0.55-1.3) 09/28/18 07:40 Creat Clearance w eGFR > 60 (>60) 09/28/18 07:40 POC Glucometer 207 UNITS (80-120) 09/30/18 16:30 Random Glucose 145 mg/dL (74-106) H 09/28/18 07:40 Calcium 7.6 mg/dL (8.5-10.1) L 09/28/18 07:40 Total Bilirubin 0.2 mg/dL (0.2-1) 09/28/18 07:40 AST 94 U/L (15-37) H 09/28/18 07:40 ALT 92 U/L (13-61) H 09/28/18 07:40 Alkaline Phosphatase 113 U/L (45-117) 09/28/18 07:40 Total Protein 7.3 g/dl (6.4-8.2) 09/28/18 07:40 Albumin 3.1 g/dl (3.4-5.0) L 09/28/18 07:40 RPR Titer Nonreactive (NONREACTIVE) 09/28/18 07:40 lab noted discuss ca++ rich food - Treatment Hospital Course: Detox Protocol Followed, Detoxed Safely, Responded well, Discharged Condition Good, Rehab Referral Accepted Patient has Accepted a Rehab Referral to: [facility] - Medication Discharge Medications: Ambulatory Orders Aspirin [ASA -] 81 mg PO DAILY 05/22/18 Amlodipine Besylate [Norvasc -] 10 mg PO DAILY #30 tablet 09/30/18 Atenolol [Tenormin -] 100 mg PO DAILY #30 tablet 09/30/18 Atorvastatin Ca [Lipitor] 20 mg PO HS #30 tablet 09/30/18 metFORMIN HCL [Glucophage -] 500 mg PO BID@0700,1630 #60 tablet 09/30/18 - Diagnosis (1) Alcohol dependence with uncomplicated withdrawal Status: Acute (2) Hypocalcemia Status: Chronic (3) Substance induced mood disorder Status: Suspected (4) DM2 (diabetes mellitus, type 2) Status: Chronic Qualifiers: Diabetes mellitus watermaster insulin use: without watermaster use Diabetes mellitus complication status: without complication Qualified Code(s): E11.9 - Type 2 diabetes mellitus without complications (5) Obesity (BMI 30-39.9) Status: Chronic (6) Hypertension Status: Chronic Qualifiers: Hypertension type: essential hypertension Qualified Code(s): I10 - Essential (primary) hypertension (7) PPD positive, treated Status: Resolved - AMA Did Patient Leave Against Medical Advice: No
== END 2018-10-01 06:34 | disposition home or self-care (01) | DRG 775 ==
LOC: YASAS 10:18 → Y3N 17:29
PROC: HZ2ZZZZ Detoxification Services for Substance Abuse Treatment (ICD-10-PCS; principal; 2018-09-27)
DX: F10.230 Alcohol dependence with withdrawal, uncomplicated (principal); F10.282 Alcohol dependence with alcohol-induced sleep disorder; F19.24 Other psychoactive substance dependence with psychoactive substance-induced mood disorder; I10 Essential (primary) hypertension; E11.65 Type 2 diabetes mellitus with hyperglycemia; E78.5 Hyperlipidemia, unspecified; E83.51 Hypocalcemia; R76.11 Nonspecific reaction to tuberculin skin test without active tuberculosis; R79.89 Other specified abnormal findings of blood chemistry; E66.9 Obesity, unspecified; Z68.41 Body mass index [BMI] 40.0-44.9, adult; Z87.891 Personal history of nicotine dependence; Z91.14 Patient's other noncompliance with medication regimen; Z79.84 Long term (current) use of oral hypoglycemic drugs; Z59.0 Homelessness
CPT/HCPCS: 36415; 80053; 82962; 85027; 86593

== ENCOUNTER 2018-11-15 14:18 | Emergency (ER) | payer OTHER ==
[2018-11-15 14:30] VITALS: TEMP 98; BMI 46.5
--- NOTE | 2018-11-15 15:03 | PDOC ---
History of Present Illness - General Chief Complaint: Alcohol intoxication Stated Complaint: INTOX Time Seen by Provider: 11/15/18 14:42 History Source: Patient Exam Limitations: Clinical Condition - History of Present Illness Initial Comments: 53 yo M w a pmh of HTN, HLD, T2DM, Obesity, seizures, alcohol abuse, kidney stones presents to the [facility] ER intoxicated from [facility]. He reports he does not want to be here and continuously requests to be discharged from the ED. He was sent from [facility] for medical clearance. He admits to drinking a significant amount of alcohol today. He is not very cooperative with providing history as he is unhappy to be here and wants to leave. He denies any chest pain, SOB, difficulty breathing, headache, nausea, vomiting , diarrhea, constipation, neck pain, blurry vision, fevers, chills, infections, weakness, numbness, tingling, or chills. Past History - Past Medical History Allergies/Adverse Reactions: Allergies Allergy/AdvReac Type Severity Reaction Status Date / Time RASHAD Inhibitors Allergy Severe Swelling Verified 11/15/18 14:26 lisinopril Allergy Severe Swelling Verified 11/15/18 14:26 Home Medications: Ambulatory Orders Aspirin [ASA -] 81 mg PO DAILY 05/22/18 Amlodipine Besylate [Norvasc -] 10 mg PO DAILY #30 tablet 09/30/18 Atenolol [Tenormin -] 100 mg PO DAILY #30 tablet 09/30/18 Atorvastatin Ca [Lipitor] 20 mg PO HS #30 tablet 09/30/18 metFORMIN HCL [Glucophage -] 500 mg PO BID@0700,1630 #60 tablet 09/30/18 Anemia: No Asthma: No Cancer: No Cardiac Disorders: Yes (mi) CVA: No COPD: No CHF: No Dementia: No Diabetes: Yes (Type II) GI Disorders: No Disorders: No HTN: Yes (non compliant with meds.) Hypercholesterolemia: Yes (Gemfibra) Kidney Stones: Yes (in 2016) Liver Disease: No Psychiatric Problems: Yes (etoh/) Seizures: No Thyroid Disease: No - Surgical History Abdominal Surgery: No Appendectomy: No Cardiac Surgery: No Cholecystectomy: No Lung Surgery: No Neurologic Surgery: No Orthopedic Surgery: No - Reproductive History Testicular Surgery: No - Suicide/Smoking/Psychosocial Hx Smoking History: Never smoked Have you smoked in the past 12 months: No Number of Cigarettes Smoked Daily: 1 If you are a former smoker, when did you quit?: at age 19 Cigars Per Day: 1 Information on smoking cessation initiated: No 'Breaking Loose' booklet given: 05/22/18 Hx Alcohol Use: No Drug/Substance Use Hx: No Substance Use Type: Alcohol Hx Substance Use Treatment: Yes Review of Systems - Review of Systems Able to Perform ROS?: Yes Comments:: CONSTITUTIONAL: Absent: fever, no chills, no fatigue EYES: Absent: visual changes ENT: Absent: ear pain, no sore throat CARDIOVASCULAR: Absent: chest pain, no palpitations RESPIRATORY: Absent: cough, no SOB GI: Absent: abdominal pain, no nausea, no vomiting, no constipation, no diarrhea GENITOURINARY: Absent: dysuria, no frequency, no hematuria MUSKULOSKELETAL: Absent: back pain, no arthralgia, no myalgia SKIN: Absent: rash NEURO: Present: Patient is slurring his words, able to ambulate straight without difficulty. Absent: headache. *Physical Exam - Vital Signs Last Vital Signs Temp Pulse Resp BP Pulse Ox 98.0 F 96 H 16 139/99 100 11/15/18 14:26 11/15/18 14:26 11/15/18 14:26 11/15/18 14:26 11/15/18 14:26 - Physical Exam Comments: GENERAL: Patint appears intoxicated and agitated. Well-appearing, well-nourished. No apparent distress. HEENT: Normocephalic, atraumatic. PERRL, EOM intact. CARDIOVASCULAR: Normal S1, S2. Regular rate and rhythm. PULMONARY: No evidence of respiratory distress. Lungs clear to auscultation bilaterally. No wheezing, rales or rhonchi. ABDOMEN: Soft, non-distended, non-tender. EXTREMITIES: Normal ROM in all four extremities. No gross deformities. SKIN: Warm, dry. No rash NEUROLOGICAL: No focal neurological deficits. Moderate Sedation - Procedure Monitoring Vital Signs: Procedure Monitoring Vital Signs Temperature 98.0 F 11/15/18 14:26 Pulse Rate 96 H 11/15/18 14:26 Respiratory Rate 16 11/15/18 14:26 Blood Pressure 139/99 11/15/18 14:26 O2 Sat by Pulse Oximetry (%) 100 11/15/18 14:26 Medical Decision Making - Medical Decision Making 53 yo M w a pmh of HTN, HLD, T2DM, Obesity, seizures, alcohol abuse, kidney stones presents to the [facility] ER intoxicated from [facility]. He reports he does not want to be here and continuously requests to be discharged from the ED. He was sent from [facility] for medical clearance. He admits to drinking a significant amount of alcohol today. He is not very cooperative with providing history as he is unhappy to be here and wants to leave. DDx IBNLT: Intoxication with alcohol vs other substance, alcohol withdrawal seizures vs agitation. - Will allow patient to sober up in the ED - He has woken up from a nap. [facility] - He is mildly tremulous as well as ataxic. - He also appears to be quite agitated. Will have security bring patient [facility] to [facility]. *DC/Admit/Observation/Transfer Diagnosis at time of Disposition: Alcohol withdrawal - Discharge Dispostion Disposition: HOME Condition at time of disposition: Stable Decision to Admit order: No - Referrals Referrals: [facility] [place] [Provider Group] - Patient Instructions Printed Discharge Instructions: DI for Alcohol Abuse Additional Instructions: You came into the ER intoxicated. After a few hours of rest you sobered up and are medically cleared [facility]. Come back to the ER if you get a headache start vomiting, or have any other new or worsening concerns. Thank you for coming to the [facility] ER. We hope you feel better soon! Print Language: [place] - Post Discharge Activity
--- NOTE | 2018-11-15 15:32 | PDOC ---
Attending Attestation - HPI HPI: This patient is a 53 year old male with PMHx of HTN, HLD, DM, who was BIBA from [facility] for alcohol intoxication (AUTUMN.432). Patient has abrasion to left elbow with some blood on pants. Patient does not have any complaints at this time and seeks detox. Social Hx: EtOH use. Undomiciled. Allergies: RASHAD inhibitors, lisinopril (severe swelling) 11/15/18 15:35 - Physicial Exam PE: Vitals: Triage Vital signs reviewed General Appearance: no acute distress, well nourished well developed Head: Atraumatic Eyes: Pupils equal reactive round, extraocular movement intact Throat: Posterior oropharynx without erythema, mucous membranes moist Neck: Supple; No Nuchal rigidity Chest Wall: Nontender Cardiac: Regular rate and rhythm, no murmurs, no rubs, no gallops Lungs: Clear to auscultation bilateral, good air movement bilaterally Abdomen: Soft, non distended, normal bowel sounds, non tender to palpation Extremities: Full range of motion to all extremities, no cyanosis, clubbing, or edema Skin: Warm and dry, no rashes or lesions, no rash, no petechiae Neuro: AOX3; Cranial Nerves 2-12 grossly intact, Strength intact to all extremities, Sensation intact to all extremities. Slighty intoxicated, able to ambulate comfortably. Psych: Normal mood, normal affect <Lucille Singh - Last Filed: 11/15/18 15:37> - Resident Resident Name: Magdiel Escobar - ED Attending Attestation I have performed the following: I have examined & evaluated the patient, The case was reviewed & discussed with the resident, I agree w/resident's findings & plan, Exceptions are as noted - Medical Decision Making 11/15/18 16:24 Patient moderately intoxicated able to ambulate with steady gait slight slurred speech now sleeping comfortably Patient does have a spot at [facility] once sober can be discharged to [facility]. Dr. Galloway to follow up patient and dispel. <Mingo Bernal - Last Filed: 11/15/18 16:24>
[2018-11-15 18:53] VITALS: BP 132/86; PULSE 89
== END 2018-11-15 18:53 | disposition short-term general hospital (02) ==
LOC: JER 14:18
DX: F10.239 Alcohol dependence with withdrawal, unspecified (principal); I10 Essential (primary) hypertension; E78.5 Hyperlipidemia, unspecified; E11.9 Type 2 diabetes mellitus without complications; E66.9 Obesity, unspecified; Z87.891 Personal history of nicotine dependence
CPT/HCPCS: 99282-25

== ENCOUNTER 2018-11-17 00:09 | Emergency (ER) | payer OTHER ==
[2018-11-17 00:14] VITALS: BMI 33.0
--- NOTE | 2018-11-17 00:23 | PDOC ---
Attending Attestation - HPI HPI: This patient is a 53 year old male with a PMHx of HTN, HLD, T2DM, Obesity, seizures, alcohol abuse, kidney stones presents to the [facility] ER from [facility] for alcohol intoxication. Patient states that he drinks hard liquor and beer. He was sent from [facility] for medical clearance. He denies any chest pain, SOB, difficulty breathing, headache, nausea, vomiting , diarrhea, constipation, neck pain, blurry vision, fevers, chills, infections, weakness, numbness, tingling, or chills. 11/17/18 01:15 - Physicial Exam PE: GENERAL: The patient is in no acute distress. HEAD: Normal with no signs of trauma. EYES: PERRLA, EOMI, sclera anicteric, conjunctiva clear. ENT: Ears with some cerumen, nares patent, oropharynx clear without exudates. Moist mucous membranes. NECK: Normal range of motion, supple without lymphadenopathy, JVD, or masses. LUNGS: Breath sounds equal, clear to auscultation bilaterally. No wheezes, and no crackles. HEART:tachycardic. Regular rhythm, normal S1 and S2 without murmur, rub or gallop. ABDOMEN: Soft, nontender, normoactive bowel sounds. No guarding, no rebound. EXTREMITIES: Normal range of motion, no edema. No clubbing or cyanosis. No erythema, or tenderness. NEUROLOGICAL: Cranial nerves II through XII grossly intact. Normal speech. No focal neurological deficits. MUSCULOSKELETAL: b/l tibial tubercle deformity/prominence. Back nontender to palpation, no CVA tenderness SKIN: old abrasion on left arm. Warm, Dry, normal turgor, no rashes noted. 11/17/18 01:36 11/17/18 01:38 <Lucille Singh - Last Filed: 11/17/18 01:38> - Resident Resident Name: Karina Zazueta - ED Attending Attestation I have performed the following: I have examined & evaluated the patient, The case was reviewed & discussed with the resident, I agree w/resident's findings & plan - Medical Decision Making 11/17/18 21:06 Pt was detoxed in the ER and watched overnight and he has been medically cleared to go to [facility] detox; PA is aware. <Jillian Argueta - Last Filed: 11/17/18 21:07>
--- NOTE | 2018-11-17 00:47 | PDOC ---
History of Present Illness - General Chief Complaint: Alcohol intoxication Stated Complaint: INTOX Time Seen by Provider: 11/17/18 00:21 - History of Present Illness Initial Comments: 11/17/18 00:49 53 year old man w/ a pmh of HTN, HLD, T2DM, Obesity, seizures, alcohol abuse, kidney stones presents to the [facility] ER from [facility] in attempt to be admitted for detox. Per [facility] note, the patient is "very intoxicated and appears confused. His alcohol level is 358." The patient reports that he drank liquor and beer today. He denies falling or injuring himself today, but notes that he fell several days ago and now has scrapes on his elbows. The patient provides a limited history 2/2 to intoxication. The patient denies chest pain, shortness of breath, headache, neck pain abdominal pain or any other complaints. Past History - Past Medical History Allergies/Adverse Reactions: Allergies Allergy/AdvReac Type Severity Reaction Status Date / Time RASHAD Inhibitors Allergy Severe Swelling Verified 11/17/18 00:13 lisinopril Allergy Severe Swelling Verified 11/17/18 00:13 Home Medications: Ambulatory Orders Aspirin [ASA -] 81 mg PO DAILY 05/22/18 Amlodipine Besylate [Norvasc -] 10 mg PO DAILY #30 tablet 09/30/18 Atenolol [Tenormin -] 100 mg PO DAILY #30 tablet 09/30/18 Atorvastatin Ca [Lipitor] 20 mg PO HS #30 tablet 09/30/18 metFORMIN HCL [Glucophage -] 500 mg PO BID@0700,1630 #60 tablet 09/30/18 Anemia: No Asthma: No Cancer: No Cardiac Disorders: Yes (mi) CVA: No COPD: No CHF: No Dementia: No Diabetes: Yes (Type II) GI Disorders: No Disorders: No HTN: Yes (non compliant with meds.) Hypercholesterolemia: Yes (Gemfibra) Kidney Stones: Yes (in 2016) Liver Disease: No Psychiatric Problems: Yes (etoh/) Seizures: No Thyroid Disease: No - Surgical History Abdominal Surgery: No Appendectomy: No Cardiac Surgery: No Cholecystectomy: No Lung Surgery: No Neurologic Surgery: No Orthopedic Surgery: No - Reproductive History Testicular Surgery: No - Suicide/Smoking/Psychosocial Hx Smoking History: Unknown if ever smoked Have you smoked in the past 12 months: No Number of Cigarettes Smoked Daily: 1 If you are a former smoker, when did you quit?: at age 19 Cigars Per Day: 1 Information on smoking cessation initiated: No 'Breaking Loose' booklet given: 05/22/18 Hx Alcohol Use: No Drug/Substance Use Hx: No Substance Use Type: Alcohol Hx Substance Use Treatment: Yes *Physical Exam - Vital Signs Last Vital Signs Temp Pulse Resp BP Pulse Ox 97.7 F 111 H 18 163/99 96 11/17/18 00:13 11/17/18 00:13 11/17/18 00:13 11/17/18 00:13 11/17/18 00:13 - Physical Exam Comments: 11/17/18 01:19 elbow abrasions otherwise unremarkable 11/17/18 01:20 Moderate Sedation - Procedure Monitoring Vital Signs: Procedure Monitoring Vital Signs Temperature 97.7 F 11/17/18 00:13 Pulse Rate 111 H 11/17/18 00:13 Respiratory Rate 18 11/17/18 00:13 Blood Pressure 163/99 11/17/18 00:13 O2 Sat by Pulse Oximetry (%) 96 11/17/18 00:13 Medical Decision Making - Medical Decision Making 11/17/18 01:18 53 year old man w/ a pmh of HTN, HLD, T2DM, Obesity, seizures, alcohol abuse, kidney stones presents to the [facility] ER from [facility] in attempt to be admitted for detox. Per [facility] note, the patient is "very intoxicated and appears confused. His alcohol level is 358." The patient reports that he drank liquor and beer today. He denies falling or injuring himself today, but notes that he fell several days ago and now has scrapes on his elbows. The patient provides a limited history 2/2 to intoxication. ED Course: patient with alcohol intoxication and without acute trauma will dose tetanus booster for elbow abrasions observe patient and metabolism to [facility] and back to [facility]. 11/17/18 04:45 blood alcohol 225 Patient ready for discharge back to [facility]. *DC/Admit/Observation/Transfer Diagnosis at time of Disposition: Alcohol intoxication - Discharge Dispostion Disposition: HOME Condition at time of disposition: Stable Decision to Admit order: No - Referrals - Patient Instructions Printed Discharge Instructions: DI for Alcohol Abuse Additional Instructions: You were seen in the ED for alcohol intoxication. You were examined and you were given a tetanus booster for elbow abrasions. You showed improvement of blood alcohol level to go to [facility]. - Post Discharge Activity
[2018-11-17] MEDS ORDERED: DIPHTH,PERTUSS(ACELL),TET 0.5 ML DISP.SYRIN IM ONE ×2 (01:16→01:31)
[2018-11-17 05:22] VITALS: BP 139/84; PULSE 91; TEMP 97.9
== END 2018-11-17 05:25 | disposition short-term general hospital (02) ==
LOC: JER 00:09
PROC: 3E0234Z Introduction of Serum, Toxoid and Vaccine into Muscle, Percutaneous Approach (ICD-10-PCS; principal; 2018-11-17)
DX: F10.120 Alcohol abuse with intoxication, uncomplicated (principal); I10 Essential (primary) hypertension; E78.5 Hyperlipidemia, unspecified; E11.9 Type 2 diabetes mellitus without complications; R56.9 Unspecified convulsions; E66.9 Obesity, unspecified
CPT/HCPCS: 36415; 80307; 90471; 90715; 99282-25

== ENCOUNTER 2018-11-17 08:12 | Inpatient (IN) | payer OTHER ==
[2018-11-17 08:23] VITALS: BMI 32.3
--- NOTE | 2018-11-17 08:32 | HP ---
CIWA Score Nausea/Vomitin Muscle Tremors: 2 Anxiety: 2 Agitation: 2 Paroxysmal Sweats: 1-Minimal Palms Moist Orientation: 0-Oriented Tacttile Disturbances: 1-Very Mild Itch/Numbness Auditory Disturbances: 1-Very Mild Visual Disturbances: 0-None Headache: 2-Mild CIWA-Ar Total Score: 13 - Admission Criteria OASAS Guidelines: Admission for Medically Managed Detox: Requires at least one of the followin. CIWA greater than 12 2. Seizures within the past 24 hours 3. Delirium tremens within the past 24 hours 4. Hallucinations within the past 24 hours 5. Acute intervention needed for co occurring medical disorder 6. Acute intervention needed for co occurring psychiatric disorder 7. Severe withdrawal that cannot be handled at a lower level of care (continued vomiting, continued diarrhea, abnormal vital signs) requiring intravenous medication and/or fluids 8. Patient presents the following: CIWA greater than 12 Admission Criteria Met: Admission criteria met Admission ROS S - HPI Chief Complaint: i need help to stop drinking alcohol,medically clear from [facility] to come for alcohol detox Allergies/Adverse Reactions: Allergies Allergy/AdvReac Type Severity Reaction Status Date / Time RASHAD Inhibitors Allergy Severe Swelling Verified 11/17/18 17:22 lisinopril Allergy Severe Swelling Verified 11/17/18 17:22 History of Present Illness: this 53 years old male with alcohol dependence seeking detox,medically clear from [facility] er for detox, multiple admissions to detox but keep relapsing,last detox [facility] 09/27/18 to syncope hypertension,type 2 dm,non compliance no significant period of sobriety Exam Limitations: No Limitations - Ebola screening Have you traveled outside of the country in the last 21 days: No (N) Have you had contact with anyone from an Ebola affected area: No Have you been sick,other than usual withdrawal symptoms: No Do you have a fever: No - Review of Systems Constitutional: Loss of Appetite, Malaise, Night Sweats, Changes in sleep, Weakness EENT: reports: No Symptoms Reported, Nose Congestion Respiratory: reports: No Symptoms reported Cardiac: reports: No Symptoms Reported GI: reports: Nausea, Poor Appetite, Abdominal cramping : reports: No Symptoms Reported Musculoskeletal: reports: Back Pain, Muscle Pain Integumentary: reports: Dryness Neuro: reports: Headache, Tremors Endocrine: reports: No Symptoms Reported Hematology: reports: No Symptoms Reported Psychiatric: reports: No Sypmtoms Reported, Judgement Intact, Mood/Affect Appropiate, Orientated x3 Patient History - Patient Medical History Hx Anemia: No Hx Asthma: No Hx Chronic Obstructive Pulmonary Disease (COPD): No Hx Cancer: No Hx Cardiac Disorders: Yes (mi in 2013) Hx Congestive Heart Failure: No Hx Hypertension: Yes (non compliant with meds.) Hx Hypercholesterolemia: Yes (Gemfibra) Hx Pacemaker: No HX Cerebrovascular Accident: No Hx Seizures: No Hx Dementia: No Hx Diabetes: Yes (Type II non compliance) Hx Gastrointestinal Disorders: No Hx Liver Disease: No Hx Genitourinary Disorders: No Hx Sexually Transmitted Disorders: No Hx Renal Disease (ESRD): No Hx Thyroid Disease: No Hx Human Immunodeficiency Virus (HIV): No (Negative 2018 in 09/01) Hx Hepatitis C: No Hx Depression: No Hx Suicide Attempt: No Hx Bipolar Disorder: No Hx Schizophrenia: No Other Medical History: no suicidal,no homicidal - Patient Surgical History Past Surgical History: Yes Hx Neurologic Surgery: No Hx Cataract Extraction: No Hx Cardiac Surgery: No Hx Lung Surgery: No Hx Breast Surgery: No Hx Breast Biopsy: No Hx Abdominal Surgery: No Hx Appendectomy: No Hx Cholecystectomy: No Hx Genitourinary Surgery: Yes (left kidney stone removed in 2015) Hx Section: No Hx Orthopedic Surgery: No Other Surgical History: left kidney stone removed 11/2015 Anesthesia Reaction: No - PPD History Previous Implant?: Yes Documented Results: Positive w/proof Results: cxray(-)04/29/18 PPD to be Administered?: No - Smoking Cessation Smoking history: Unknown if ever smoked Have you smoked in the past 12 months: No Aproximately how many cigarettes per day: 1 If you are a former smoker, when did you quit?: at age 19 Cigars Per Day: 1 Hx Chewing Tobacco Use: No - Substance & Tx. History Hx Alcohol Use: Yes Hx Substance Use: No Substance Use Type: Alcohol Hx Substance Use Treatment: Yes ([facility] 09/27/18 to 10/01/18) - Substances Abused Alcohol Route: Oral Frequency: Daily Amount used: 2 pints of vodka/4 of 24 ozs of beer Age of first use: 18 Date of Last Use: 11/16/18 Family Disease History - Family Disease History Family Disease History: Heart Disease: Mother (HTN), Other: Father (Alcohol), Mother, Brother (Alcohol) Admission Physical Exam [facility] - Vital Signs Vital Signs: Vital Signs - 24 hr 11/17/18 08:21 Temperature 98.8 F Pulse Rate 98 H Respiratory 18 Rate Blood Pressure 137/78 - Physical General Appearance: Yes: Moderate Distress, Tremorous, Irritable, Sweating, Anxious HEENTM: Yes: Normal ENT Inspection, FIDEL, Pharynx Normal Respiratory: Yes: Lungs Clear, Normal Breath Sounds, No Respiratory Distress Neck: Yes: Within Normal Limits Breast: Yes: Within Normal Limits Cardiology: Yes: Within Normal Limits, Regular Rhythm, Regular Rate, S1, S2 Abdominal: Yes: Within Normal Limits, Normal Bowel Sounds, Non Tender, Soft Genitourinary: Yes: Within Normal Limits Back: Yes: Muscle Spasm Musculoskeletal: Yes: Back pain, Muscle Pain Extremities: Yes: Tremors Neurological: Yes: lead radiologic technologist II-XII NML intact, Fully Oriented, Alert, Motor Strength 5/5 Integumentary: Yes: Dry Lymphatic: Yes: Within Normal Limits - Diagnostic (1) Alcohol dependence with uncomplicated withdrawal Status: Acute (2) Essential (primary) hypertension Status: Chronic (3) Hx of coronary artery disease Status: Chronic (4) Hyperlipemia Status: Chronic Qualifiers: Hyperlipidemia type: pure hypercholesterolemia Qualified Code(s): E78.00 - Pure hypercholesterolemia, unspecified; E78.0 - Pure hypercholesterolemia (5) Obesity (BMI 30-39.9) Status: Chronic (6) Seizure disorder Status: Chronic (7) DM2 (diabetes mellitus, type 2) Status: Acute (8) Syncope Status: Acute Cleared for Admission [facility] - Detox or Rehab [facility] Level of Care: Medically Managed Detox Regimen/Protocol: Librium [facility] Breath Alcohol Content Breath Alcohol Content: 0.142 Urine Drug Screen - Results Drug Screen Negative: Yes Urine Drug Screen Results: BZO-Benzodiazepines
[2018-11-17] MEDS ORDERED: ACETAMINOPHEN 325 MG TABLET (FP) PO PRN (08:48)
[2018-11-17] MEDS ORDERED: MENTHOL/PHENOL 1 EACH UD MM PRN (08:48)
[2018-11-17] MEDS ORDERED: hydrOXYzine PAMOATE 50 MG CAPSULE (FP) PO PRN (08:48)
[2018-11-17] MEDS ORDERED: P-EPHED 60MG/TRIPROLIDI 2.5MG TABLET PO PRN (08:48)
[2018-11-17] MEDS ORDERED: MAGNESIUM HYDROX 2400MG/30ML ORAL SUSPENSION 30 ML CUP PO PRN (08:48)
[2018-11-17] MEDS ORDERED: MAG HYDROX/AL HYDROX/SIMETH 30 ML UNIT-DOSE CUP PO PRN (08:48)
[2018-11-17] MEDS ORDERED: guaiFENesin/D-METHORPHAN HB 10 ML UNIT-DOSE CUPS PO PRN (08:48)
[2018-11-17] MEDS ORDERED: chlordiazePOXIDE HCL 25 MG CAPSULE PO PRN (08:48)
[2018-11-17] MEDS ORDERED: MAGNESIUM CITRATE 300 ML BOTTLE PO PRN (08:48)
[2018-11-17] MEDS ORDERED: LOPERAMIDE HCL 2 MG CAPSULE PO PRN (08:48)
[2018-11-17] MEDS ORDERED: IBUPROFEN 400 MG TABLET (FP) PO PRN (08:48)
[2018-11-17] MEDS ORDERED: ASPIRIN 81 MG CHEWABLE TABLETS PO SCH (10:00)
[2018-11-17] MEDS ORDERED: RANITIDINE HCL 150 MG TABLET (FP) PO SCH (10:00)
[2018-11-17] MEDS ORDERED: amLODIPine BESYLATE 10 MG TABLET (FP) PO SCH (10:00)
[2018-11-17] MEDS ORDERED: PATIENT'S OWN MEDICATION (NON-FORMULARY) (Atenolol [Tenormin -] 100 MG) PO SCH (10:00)
[2018-11-17] MEDS ORDERED: PRENATAL VITAMINS W/ FOLIC ACID TABLET (FP) PO SCH (10:00)
[2018-11-17] MEDS: chlordiazePOXIDE HCL 25 MG CAPSULE PO SCH ×3 (10:46→22:53)
[2018-11-17] MEDS: METOPROLOL TARTRATE 50 MG TABLET (FP) PO SCH ×2 (10:46→22:53)
--- NOTE | 2018-11-17 16:11 | PN ---
[facility] Progress Note Note: 53 years old male admitted on for alcohol withdrawal stabilization long history of alcohol abuse, treated at ER 11/15/18 and 11/16/[address] [facility] for alcohol detox today 11/17/18 received librium 50 mg lopressor 50 mg amlodopin 10 mg and zantac 150 mg po around 4 pm patient had seizure jerking movement fell on the floor right temporal skull hit the ground ambulance wasl called information provided to ER DR. Maria Fernanda montague noted from mouth jerking movement last about 4 seconds, post ictal disoriented to place disposition: return to detox or rehab once medically cleared
[2018-11-17] MEDS ORDERED: metFORMIN HCL 500 MG TABLET (FP) PO SCH (16:30)
[2018-11-17 18:52] VITALS: BP 100/78; PULSE 102; TEMP 97.7
[2018-11-17] MEDS ORDERED: MELATONIN 5 MG TABLETS PO PRN (22:00)
[2018-11-17] MEDS ORDERED: THIAMINE HCL 100 MG TABLET (FP) PO SCH (22:00)
[2018-11-17] MEDS ORDERED: ATORVASTATIN CA 40 MG TABLET (FP) PO SCH (22:00)
[2018-11-18] MEDS ORDERED: chlordiazePOXIDE HCL 25 MG CAPSULE PO SCH (11:00)
[2018-11-19] MEDS ORDERED: chlordiazePOXIDE 5 MG CAPSULE PO SCH (11:00)
[2018-11-20] MEDS ORDERED: chlordiazePOXIDE HCL 10 MG CAPSULE PO SCH (11:00)
== END 2018-11-17 23:44 | disposition short-term general hospital (02) | DRG 775 ==
LOC: YASAS 08:12 → Y6N 09:19
PROVIDERS: ADMIT Neuromusculoskeletal Medicine & OMM; ATTEND Neuromusculoskeletal Medicine & OMM
PROC: HZ2ZZZZ Detoxification Services for Substance Abuse Treatment (ICD-10-PCS; principal; 2018-11-17)
DX: F10.230 Alcohol dependence with withdrawal, uncomplicated (principal); I10 Essential (primary) hypertension; I25.10 Atherosclerotic heart disease of native coronary artery without angina pectoris; I25.2 Old myocardial infarction; E78.5 Hyperlipidemia, unspecified; E11.9 Type 2 diabetes mellitus without complications; G40.89 Other seizures; E66.9 Obesity, unspecified; Z68.32 Body mass index [BMI] 32.0-32.9, adult; Z91.14 Patient's other noncompliance with medication regimen
CPT/HCPCS: 82962

== ENCOUNTER 2018-11-17 16:47 | Inpatient (IN) | payer OTHER ==
[2018-11-17 16:51] VITALS: BMI 33.7
[2018-11-17 17:54] LABS: BASO % 1.3 % (0-2.0); EOS % 0.8 % (0-4.5); HEMATOCRIT 38.1 % (35.4-49); HEMOGLOBIN 13.3 GM/dL (11.7-16.9); LYMPH % 18.4 % (8-40); MCH 29.3 pg (25.7-33.7); MCHC 34.8 g/dl (32.0-35.9); MEAN PLT VOLUME 6.7 fl (7.5-11.1); MONO % 6.4 % (3.8-10.2); NEUT % 73.1 % (42.8-82.8); PLATELET COUNT 212 K/MM3 (134-434); RBC 4.54 M/mm3 (4.00-5.60); WHITE BLOOD COUNT 5.9 K/mm3 (4.0-10.0)
[2018-11-17] MEDS ORDERED: LORazepam 2 MG/ML SDV VIAL ONE ×2 (18:05→19:39)
--- NOTE | 2018-11-17 18:13 | PDOC ---
Attending Attestation - Resident Resident Name: Kiara Antoine - ED Attending Attestation I have performed the following: I have examined & evaluated the patient, The case was reviewed & discussed with the resident, I agree w/resident's findings & plan, Exceptions are as noted - HPI HPI: 11/17/18 18:15 53 year old man w/ a pmh of alcohol abuse, kidney stones presents to the [facility] ER from [facility] This patient is a 53 year old male with PMHx of alcohol dependence HTN, HLD, T2DM, Obesity, kidney stones, seizures, multiple admissions to detox but keep relapsing, who presents from [facility] s/p seizure episode at 4pm. As per S note, patient fell on floor and hit his head. EMS was called. Blood noted from mouth with jerking movement that lasted for about 4 seconds. Patient was postictal following seizure. Upon arrival to ER, patient was unaware of what had occured. denies any cp, sob, abd pain, n/v, headache, fever/chills, cough Patient had another seizure at 1800 here in the ED lasting approx 30 sec, given 2mg ativan. +postictal peiod with return to [facility]. +blood visible for oralharanx with tongue laceration pt states he is on gabapentin for his seizures recently moved from [place] no neurologist - Physicial Exam PE: 11/17/18 18:27 (exam performed after his seizure) GENERAL: The patient is somnolent but arousable to voice oriented, Nontoxic - in no acute distress. HEAD: Normocephalic, atraumatic. EYES: extraocular movements intact, sclera anicteric, conjunctiva clear. ENT: Normal voice, Moist mucous membranes, blood in the mouth, tongue abrasion at tip of tongue NECK: Normal range of motion, supple LUNGS: Breath sounds equal, clear to auscultation bilaterally. No wheezes, no rhonchi, no rales. HEART: tachycardic, no mrg ABDOMEN: Soft, nontender, normoactive bowel sounds. No guarding, no rebound. . No CVA tenderness EXTREMITIES: Normal range of motion, no edema. No clubbing or cyanosis. No cords, erythema, or tenderness. NEUROLOGICAL: No facial assymetry, Normal speech, moving all 4 extremities spontanoeusly and symmetircally PSYCH: Normal mood, normal affect. SKIN: Warm, Dry, normal turgor, - Critical Care Time Total Critical Care Time: 45 Critical Care Statement: The care of this patient involved high complexity decision making to prevent further life threatening deterioration of the patient 's condition and/or to evaluate & treat vital organ system(s) failure or risk of failure. - Medical Decision Making 11/17/18 18:38 53y M hx of htn, hl, DM2, seizures, chronic alcoholism presents from [facility] for evaluation of seizures. pt had a witnessed seizure lasting approx [address] [facility] with a short post ictal period and EMS was notified. Upon arrival the pt was awake, alert, but during evaluation by the resident had a witnessed tonic clonic seizure lasting approx 20 seconds with tongue biting. Pt had approx 5-10 min post ictal period and his mental status is improvement. pt was given 2mg of ativan after his episode. History limited as pt is postictal here ddx - primary seizrue vs withdrawal seziure will ck labs to henrik echeverria seizure precautions, caradiac monitor ekg benzos as needed for seizures 11/17/18 18:54 pt more awake and alert. able to tell us he came from [place], has a doctor in [place] but doesnt see a neurologist. notse the only me he is on is gabapentin for his seizure will obtain CT head labs to christina echeverria ativan given will continue to ovserve here - will discusss with neurology regarding need for antieplieptic 11/17/18 18:59 The rmedication history from his pharmacy shows the patient is on gabapentin 600 mg 3 times a day the patient does not seem to be getting his gabapentin while at [facility]. This may be the cause of his seizures will discuss with a neurology regarding loading his gabapentin. Will sign out to the evening team for further evaluation Heart Score/ECG Review - ECG Impressions Comment:: 11/17/18 19:00 Twelve-lead EKG was performed and reviewed by me. There is normal sinus rhythm with a rate of 113 LVH nonspecific tw changes
[2018-11-17 18:22] LABS: ALBUMIN 3.9 g/dl (3.4-5.0); ALK PHOS 114 U/L (45-117); BILIRUBIN,TOTAL 0.7 mg/dL (0.2-1); BLOOD UREA NITROGEN 9 mg/dL (7-18); CALCIUM 8.5 mg/dL (8.5-10.1); CHLORIDE 98 mmol/L (98-107); CO2 26 mmol/L (21-32); CREATININE 0.8 mg/dL (0.55-1.3); GLUCOSE,RANDOM 158 mg/dL (74-106); SGPT/ALT 71 U/L (13-61); SODIUM 134 mmol/L (136-145); TOT PROT 8.5 g/dl (6.4-8.2)
[2018-11-17 18:23] LABS: ANION GAP 9 MMOL/L (8-16); POTASSIUM 4.7 mmol/L (3.5-5.1); SGOT/AST 115 U/L (15-37)
[2018-11-17] MEDS ORDERED: LACTATED RINGERS SOLUTION 1000 ML INFUS.BAG IV ONE (18:28)
--- NOTE | 2018-11-17 19:21 | PDOC ---
*Physical Exam - Vital Signs Last Vital Signs Temp Pulse Resp BP Pulse Ox 99.3 F 113 H 18 172/101 H 96 11/17/18 16:49 11/17/18 18:10 11/17/18 18:10 11/17/18 18:10 11/17/18 18:10 <Lucille Singh - Last Filed: 11/17/18 19:39> - Vital Signs Last Vital Signs Temp Pulse Resp BP Pulse Ox 99.3 F 113 H 18 172/101 H 96 11/17/18 16:49 11/17/18 18:10 11/17/18 18:10 11/17/18 18:10 11/17/18 18:10 <Jillian Argueta - Last Filed: 11/18/18 01:14> ED Treatment Course - LABORATORY CBC & Chemistry Diagram: 11/17/18 17:45 11/17/18 17:45 - ADDITIONAL ORDERS Additional order review: Laboratory Results 11/17/18 11/17/18 17:45 17:45 Sodium 134 L Potassium 4.7 Chloride 98 Carbon Dioxide 26 Anion Gap 9 BUN 9 Creatinine 0.8 Creat Clearance w eGFR > 60 Random Glucose 158 H Lactic Acid 3.0 H* Calcium 8.5 Total Bilirubin 0.7 AST 115 H ALT 71 H Alkaline Phosphatase 114 Total Protein 8.5 H Albumin 3.9 11/17/18 17:45 RBC 4.54 MCV 84.0 MCHC 34.8 RDW 16.0 H MPV 6.7 L Neutrophils % 73.1 Lymphocytes % 18.4 Monocytes % 6.4 Eosinophils % 0.8 Basophils % 1.3 - Medications Given in the ED: ED Medications Discontinued Medications Generic Name Dose Route Start Last Admin Trade Name Freq PRN Reason Stop Dose Admin Lactated Ringer's 1,000 ml 11/17/18 18:28 11/17/18 18:32 Lactated Ringers Solution IV 11/17/18 18:29 1,000 ml NOW ONE Administration Lorazepam 2 mg 11/17/18 18:09 11/17/18 18:10 Ativan Injection - IVPUSH 11/17/18 18:10 2 mg ONCE ONE Administration <Lucille Singh - Last Filed: 11/17/18 19:39> - LABORATORY CBC & Chemistry Diagram: 11/17/18 17:45 11/17/18 17:45 - ADDITIONAL ORDERS Additional order review: Laboratory Results 11/17/18 11/17/18 17:45 17:45 Sodium 134 L Potassium 4.7 Chloride 98 Carbon Dioxide 26 Anion Gap 9 BUN 9 Creatinine 0.8 Creat Clearance w eGFR > 60 Random Glucose 158 H Lactic Acid 3.0 H* Calcium 8.5 Total Bilirubin 0.7 AST 115 H ALT 71 H Alkaline Phosphatase 114 Total Protein 8.5 H Albumin 3.9 11/17/18 17:45 RBC 4.54 MCV 84.0 MCHC 34.8 RDW 16.0 H MPV 6.7 L Neutrophils % 73.1 Lymphocytes % 18.4 Monocytes % 6.4 Eosinophils % 0.8 Basophils % 1.3 - Medications Given in the ED: ED Medications Discontinued Medications Generic Name Dose Route Start Last Admin Trade Name Scottq PRN Reason Stop Dose Admin Lactated Ringer's 1,000 ml 11/17/18 18:28 11/17/18 18:32 Lactated Ringers Solution IV 11/17/18 18:29 1,000 ml NOW ONE Administration Lorazepam 2 mg 11/17/18 18:09 11/17/18 18:10 Ativan Injection - IVPUSH 11/17/18 18:10 2 mg ONCE ONE Administration <Jillian Argueta - Last Filed: 11/18/18 01:14> Progress Note - Progress Note Progress Note: Patient had a witnessed seizure episode at 19:39 <Lucille Singh - Last Filed: 11/17/18 19:39> Medical Decision Making - Medical Decision Making 11/18/18 01:12 Pt signed out to me; he was sent from [facility] for seizures; had another seizure in the ER and he will require admission. He is not medically stable to go pback to [facility]. Pt was completely worked up and he is ready for admission Patient Name: SCOTT ORDOÑEZ THIS IS A PRELIMINARY REPORT FROM [facility] EXAM: CT Head wo IMAGES: 153 EXAM DATE AND TIME: 2018-11-17 19:01:31 HISTORY: 53 year old man: Head trauma following a fall. Seizures. COMPARISON: None TECHNIQUE: Non-contrast axial images were obtained. Coronal and sagittal images were also generated. FINDINGS: There are no intracranial hemorrhages, brain parenchymal contusion injuries, or imaged calvarial, facial or skull base fractures. There is no subcutaneous soft tissue swelling. There are no extra-axial fluid collections or evidence of an intra-axial mass lesion. The cerebral sulci and ventricles are normal in size for the patient's age. There is no clear evidence of chronic ischemic demyelination. Cerebral guo/white matter differentiation is preserved, without clear evidence of an acute ischemic lesion at this time. Orbital and petrous structures, cerebellopontine angles, and posterior fossa appear unremarkable. There is mucosal thickening in the right maxillary sinus, suggesting mild sinusitis. The remaining paranasal and mastoid sinuses are clear. IMPRESSION: Right maxillary sinusitis. <Jillian Argueta - Last Filed: 11/18/18 01:14> *DC/Admit/Observation/Transfer <Lucille Singh - Last Filed: 11/17/18 19:39> - Discharge Dispostion Decision to Admit order: Yes <Jillian Argueta - Last Filed: 11/18/18 01:14> Diagnosis at time of Disposition: Seizure - Discharge Dispostion Condition at time of disposition: Guarded
--- NOTE | 2018-11-17 19:56 | PDOC ---
History of Present Illness - General Chief Complaint: Seizure Stated Complaint: SEIZURE Time Seen by Provider: 11/17/18 16:59 History Source: Patient, Old Records Exam Limitations: No Limitations - History of Present Illness Initial Comments: 11/18/18 00:26 Pt is a 53yo M with PMH of alcohol use, DM, HTN, seizures BIBA from [facility] for seizure. Per chart, pt had witnessed seizure episode and fell to the ground hitting R side of head. Pt was sent here for evaluation. Pt does not recall having the seizure but states he has had seizures before. He does not know if they were due to alcohol withdrawal. Pt does not remember exactly when last drink was, but states it was 2 or 3 days ago because that is when he went to [facility]. He denies headache, chest pain, sob, cough, changes in vision, weakness, numbness/tingling, abdominal pain, n/v/d. He states he takes Gabapentin for his seizures but has not taken them in a week or so. PMD? PMH: see hpi Meds: see med rec Allergies: ACEI Social: drinks 1pt and acouple of beers. Past History - Past Medical History Allergies/Adverse Reactions: Allergies Allergy/AdvReac Type Severity Reaction Status Date / Time RASHAD Inhibitors Allergy Severe Swelling Verified 11/17/18 17:22 lisinopril Allergy Severe Swelling Verified 11/17/18 17:22 Home Medications: Ambulatory Orders Aspirin [ASA -] 81 mg PO DAILY 05/22/18 Amlodipine Besylate [Norvasc -] 10 mg PO DAILY #30 tablet 09/30/18 Atenolol [Tenormin -] 100 mg PO DAILY #30 tablet 09/30/18 Atorvastatin Ca [Lipitor] 20 mg PO DAILY 11/17/18 Folic Acid - 1 mg PO DAILY 11/17/18 Gabapentin 600 mg PO TID 11/17/18 Metoprolol Tartrate [Lopressor -] 50 mg PO BID 11/17/18 Naltrexone HCl 50 mg PO DAILY 11/17/18 Ranitidine [Zantac -] 150 mg PO DAILY 11/17/18 Thiamine Mononitrate [Vitamin B-1] 100 mg PO DAILY 11/17/18 Thiamine Mononitrate [Vitamin B-1] 100 mg PO DAILY 11/17/18 metFORMIN HCL [Glucophage -] 1,000 mg PO BID@0700,1630 11/17/18 Anemia: No Asthma: No Cancer: No Cardiac Disorders: Yes (mi in 2014) CVA: No COPD: No CHF: No Dementia: No Diabetes: Yes (Type II non compliance) GI Disorders: Yes (GERD) Disorders: No HTN: Yes (non compliant with meds.) Hypercholesterolemia: Yes (Gemfibra) Kidney Stones: No Liver Disease: No Psychiatric Problems: Yes (etoh/) Seizures: Yes (SEIZURE 6 MONTHS AGO) Thyroid Disease: No - Surgical History Abdominal Surgery: No Appendectomy: No Cardiac Surgery: No Cholecystectomy: No Lung Surgery: No Neurologic Surgery: No Orthopedic Surgery: No - Reproductive History Testicular Surgery: No - Suicide/Smoking/Psychosocial Hx Smoking History: Never smoked Have you smoked in the past 12 months: No Number of Cigarettes Smoked Daily: 1 If you are a former smoker, when did you quit?: at age 19 Cigars Per Day: 1 Information on smoking cessation initiated: No 'Breaking Loose' booklet given: 05/22/18 Hx Alcohol Use: Yes Drug/Substance Use Hx: No Substance Use Type: Alcohol Hx Substance Use Treatment: Yes ([facility] 09/27/18 to 10/01/18) *Physical Exam - Vital Signs Last Vital Signs Temp Pulse Resp BP Pulse Ox 99.3 F 113 H 18 172/101 H 96 11/17/18 16:49 11/17/18 18:10 11/17/18 18:10 11/17/18 18:10 11/17/18 18:10 Moderate Sedation - Procedure Monitoring Vital Signs: Procedure Monitoring Vital Signs Temperature 99.3 F 11/17/18 16:49 Pulse Rate 113 H 11/17/18 18:10 Respiratory Rate 18 11/17/18 18:10 Blood Pressure 172/101 H 11/17/18 18:10 O2 Sat by Pulse Oximetry (%) 96 11/17/18 18:10 ED Treatment Course - LABORATORY CBC & Chemistry Diagram: 11/17/18 17:45 11/17/18 17:45 - ADDITIONAL ORDERS Additional order review: Laboratory Results 11/17/18 11/17/18 17:45 17:45 Sodium 134 L Potassium 4.7 Chloride 98 Carbon Dioxide 26 Anion Gap 9 BUN 9 Creatinine 0.8 Creat Clearance w eGFR > 60 Random Glucose 158 H Lactic Acid 3.0 H* Calcium 8.5 Total Bilirubin 0.7 AST 115 H ALT 71 H Alkaline Phosphatase 114 Total Protein 8.5 H Albumin 3.9 11/17/18 17:45 RBC 4.54 MCV 84.0 MCHC 34.8 RDW 16.0 H MPV 6.7 L Neutrophils % 73.1 Lymphocytes % 18.4 Monocytes % 6.4 Eosinophils % 0.8 Basophils % 1.3 - RADIOLOGY Radiology Studies Ordered: Category Date Time Status HEAD CT WITHOUT CONTRAST [CT] Stat CT Scan 11/17/18 17:04 Taken - Medications Given in the ED: ED Medications Discontinued Medications Generic Name Dose Route Start Last Admin Trade Name John PRN Reason Stop Dose Admin Lactated Ringer's 1,000 ml 11/17/18 18:28 11/17/18 18:32 Lactated Ringers Solution IV 11/17/18 18:29 1,000 ml NOW ONE Administration Lorazepam 2 mg 11/17/18 18:09 11/17/18 18:10 Ativan Injection - IVPUSH 11/17/18 18:10 2 mg ONCE ONE Administration Medical Decision Making - Medical Decision Making Pt is a 53yo M with PMH of alcohol use, DM, HTN, seizures BIBA from [facility] for seizure. Per chart, pt had witnessed seizure episode and fell to the ground hitting R side of head. Pt was sent here for evaluation. Pt does not recall having the seizure but states he has had seizures before. He does not know if they were due to alcohol withdrawal. Pt does not remember exactly when last drink was, but states it was 2 or 3 days ago because that is when he went to [facility]. He denies headache, chest pain, sob, cough, changes in vision, weakness, numbness/tingling, abdominal pain, n/v/d. He states he takes Gabapentin for his seizures but has not taken them in a week or so. Vitals: wnl PE: small tongue laceration, tongue does not separate. Normal neurological exam. No deficits. Alcohol withdrawal seizure v. non compliance with medications. -lactic acid, cbc, cmp, coags ekg, ct head -will monitor. PT had seizure in ED. Given 2mg Ativan. Placed on monitor, was hypertensive, tachycardic. placed on NRB EKG done. sinus tachycardia. No signs of ischemia. Pt post ictal, is opening eyes when asked and protecting airway. Vomited. Labs significant for lact 3.0 and elevated LFTs (near baseline). 11/17/18 19:[address] Ortega Recommended Keppra 250 BID and continue Gabapentin 600mg TID. Pt had another seizure. Will admit. Given 2mg Ativan. *DC/Admit/Observation/Transfer - Discharge Dispostion Decision to Admit order Date/Time: Decision to Admit Order Category Date Time Status Decision to Admit to Hospital Routine Admission 11/17/18 19:45 Active - Referrals - Patient Instructions - Post Discharge Activity
[2018-11-17 20:16] LABS: INR 0.99 (0.83-1.09); PROTHROMBIN TIME (PATIENT) 11.7 SEC (9.7-13.0)
[2018-11-17] MEDS ORDERED: FOLIC ACID INJECTION - 1 MG, THIAMINE HCL 100 MG, MULTIVIT INJECTION ADULT 10 ML in SOD... IVPB ONE (20:20)
[2018-11-17] MEDS ORDERED: levETIRAcetam 500 MG/5 ML INJECTION VIAL IVPB ONE ×2 (20:42→20:45)
--- NOTE | 2018-11-17 20:57 | PN ---
Teaching Attending Note Name of Resident: Suzi Avila ATTENDING PHYSICIAN STATEMENT I saw and evaluated the patient. I reviewed the resident's note and discussed the case with the resident. I agree with the resident's findings and plan as documented. SUBJECTIVE: Patient is a 53 year old man with PMH of alcohol dependence, HTN, HLD, T2DM, Obesity, kidney stones, seizures, multiple admissions to Detox but kept relapsing, who presents from [facility] after a seizure episode at 4pm. As per [facility] note, patient fell on floor and hit his head. EMS was called. Blood noted from mouth with jerking movement that lasted for about 4 seconds. Patient was postictal following seizure. Upon arrival to ER, patient was unaware of what had occured. denies any cp, sob, abd pain, n/v, headache, fever/chills, cough. Had two witnessed siezures in the ER. OBJECTIVE: Somnolent but arousable Vital Signs Period Temp Pulse Resp BP Sys/Torrez Pulse Ox Last 24 Hr 99.3 F 92-113 18-22 119-172/76-101 96-98 HEENT: No Jaundice, eye redness or discharge, PERRLA, EOMI. Tongue laceration. Normocephalic, atraumatic. External ears are normal and hearing is grossly intact. No nasal discharge. Neck: Supple, nontender. No palpable adenopathy or thyromegaly. No JVD Chest: Good effort. Clear to auscultation and percussion. Heart: Regular. No S3, rub or murmur Abdomen: Not distended, soft, nontender and no HSM. No rebound or guarding. Normoactive bowel sounds. Ext: Peripheral pulses intact. No leg edema. Skin: Warm and dry. No petechiae, rash or ecchymosis. Neuro: Somnolent but arousable. Oriented x3. CN 2-12 grossly intact. Sensation grossly intact in all four extremities and DTR are symmetric. Current Medications Generic Name Dose Route Start Last Admin Trade Name Freq PRN Reason Stop Dose Admin Folic Acid 1 mg/ Thiamine HCl 1,000 mls @ 125 mls/hr 11/17/18 20:20 100 mg/ Multivitamins/Minerals IVPB 11/18/18 04:19 10 ml/ Sodium Chloride ONCE ONE Home Medications Medication Instructions Recorded Aspirin [ASA -] 81 mg PO DAILY 05/22/18 Amlodipine Besylate [Norvasc -] 10 mg PO DAILY #30 tablet 09/30/18 Atenolol [Tenormin -] 100 mg PO DAILY #30 tablet 09/30/18 Atorvastatin Ca [Lipitor] 20 mg PO DAILY 11/17/18 Folic Acid - 1 mg PO DAILY 11/17/18 Gabapentin 600 mg PO TID 11/17/18 Metoprolol Tartrate [Lopressor -] 50 mg PO BID 11/17/18 Naltrexone HCl 50 mg PO DAILY 11/17/18 Ranitidine [Zantac -] 150 mg PO DAILY 11/17/18 Thiamine Mononitrate [Vitamin B-1] 100 mg PO DAILY 11/17/18 Thiamine Mononitrate [Vitamin B-1] 100 mg PO DAILY 11/17/18 metFORMIN HCL [Glucophage -] 1,000 mg PO BID@0700,1630 11/17/18 Abnormal Lab Results 11/17/18 11/17/18 11/17/18 17:45 17:45 17:45 RDW 16.0 H MPV 6.7 L Sodium 134 L Random Glucose 158 H Lactic Acid 3.0 H* AST 115 H ALT 71 H Total Protein 8.5 H ASSESSMENT AND PLAN: 1. Seizure - Patient unclear when he had his last drink. Also known to have seizures and has not been taking his Gabapentin. Neurology consulted. Results of head CT pending and tongue laceration being addressed. Will load with IV Keppra and continue keppra daily. Consult ICU for overnight ICU care. Will implement [facility] alcohol withdrawal protocol, fall and aspiration precautions. Treat with thiamine and folic acid and monitor electrolytes (Ca,Mg, K,P). Continue IV fluid and trend lactic acid level. Rn Research patient about abstaining from alcohol and refer to alcohol detox upon discharge. 2. Tobacco Use We will provide patient all the necessary assistance to facilitate smoking cessation and prescribe Nicotine patch. 3. Obesity - Will provide patient all the necessary assistance, counseling and positive reinforcement to facilitate weight loss. Consult meter reading clerk. 4. DM For now, we will hold the home diabetes drugs and implement sliding scale insulin regimen. Provide comprehensive diabetes care with patient teaching and counseling about the importance of adherence to prescribed diabetes regimen, euglycemia, eye care and foot care. 5. DVT prophylaxis - Lovenox 40 mg SQ q 24 hours. 6. Advance directives - Full code
[2018-11-17] MEDS ORDERED: chlordiazePOXIDE HCL 25 MG CAPSULE PO PRN (21:12)
--- NOTE | 2018-11-17 22:01 | HP ---
CHIEF COMPLAINT: seziures PCP:unknown HISTORY OF PRESENT ILLNESS: 53 y/o male with PMH of HTN, HLD, seizures, DM, alcohol abuse was sent in from [facility] where he was there for alcohol withdrawal where he suffered a witnessed seizure- the seizure was apparently 4 minutes long with jerking motions of the extremities and patient apparently hit his head and bit his tongue suffering a laceration - he was postictal after the seizure. when he got to the ED he suffered 2 more seizures where he was given 2mg of ativan each time. patient has a known seizure disorder where he usually takes gabapentin 600 TID, however he apparently ran out and has not taken it for over a week and a half. it is unclear when patients last drink was and he was unable to say specifically how much he drank or when he stopped drinking as he was very somnolent post seizure. ER course was notable for: (1) 2 witnesses seizures each lasting about 2 mins- receiving 2 mg of ativan each time (2) BP on arrival 173/92; tachy 10 113 (3)dr joseph contacted from ED Recent Travel: none PAST MEDICAL HISTORY: see above PAST SURGICAL HISTORY: unknown Social History: Smoking:unknown Alcohol:drinks alcohol; unclear how much or what type Drugs: Family History: Allergies RASHAD Inhibitors Allergy (Severe, Verified 11/17/18 17:22) Swelling lisinopril Allergy (Severe, Verified 11/17/18 17:22) Swelling HOME MEDICATIONS: Home Medications Medication Instructions Recorded Aspirin [ASA -] 81 mg PO DAILY 05/22/18 Amlodipine Besylate [Norvasc -] 10 mg PO DAILY #30 tablet 09/30/18 Atenolol [Tenormin -] 100 mg PO DAILY #30 tablet 09/30/18 Atorvastatin Ca [Lipitor] 20 mg PO DAILY 11/17/18 Folic Acid - 1 mg PO DAILY 11/17/18 Gabapentin 600 mg PO TID 11/17/18 Metoprolol Tartrate [Lopressor -] 50 mg PO BID 11/17/18 Naltrexone HCl 50 mg PO DAILY 11/17/18 Ranitidine [Zantac -] 150 mg PO DAILY 11/17/18 Thiamine Mononitrate [Vitamin B-1] 100 mg PO DAILY 11/17/18 Thiamine Mononitrate [Vitamin B-1] 100 mg PO DAILY 11/17/18 metFORMIN HCL [Glucophage -] 1,000 mg PO BID@0700,1630 11/17/18 REVIEW OF SYSTEMS: unable to obtain as patient was postictal and very somnolent CONSTITUTIONAL: Absent: fever, chills, diaphoresis, generalized weakness, malaise, loss of appetite, weight change HEENT: Absent: rhinorrhea, nasal congestion, throat pain, throat swelling, difficulty swallowing, mouth swelling, ear pain, eye pain, visual changes CARDIOVASCULAR: Absent: chest pain, syncope, palpitations, irregular heart rate, lightheadedness , peripheral edema RESPIRATORY: Absent: cough, shortness of breath, dyspnea with exertion, orthopnea, wheezing, stridor, hemoptysis GASTROINTESTINAL: Absent: abdominal pain, abdominal distension, nausea, vomiting, diarrhea, constipation, melena, hematochezia GENITOURINARY: Absent: dysuria, frequency, urgency, hesitancy, hematuria, flank pain, genital pain MUSCULOSKELETAL: Absent: myalgia, arthralgia, joint swelling, back pain, neck pain SKIN: Absent: rash, itching, pallor HEMATOLOGIC/IMMUNOLOGIC: Absent: easy bleeding, easy bruising, lymphadenopathy, frequent infections ENDOCRINE: Absent: unexplained weight gain, unexplained weight loss, heat intolerance, cold intolerance NEUROLOGIC: Absent: headache, focal weakness or paresthesias, dizziness, unsteady gait, seizure, mental status changes, bladder or bowel incontinence PSYCHIATRIC: Absent: anxiety, depression, suicidal or homicidal ideation, hallucinations. PHYSICAL EXAMINATION Vital Signs - 24 hr 11/17/18 11/17/18 11/17/18 16:49 18:10 20:01 Temperature 99.3 F Pulse Rate 92 H Pulse Rate [ 113 H 105 H Apical] Respiratory 18 18 22 H Rate Blood Pressure 153/86 Blood Pressure 172/101 H 119/76 [Right Arm] O2 Sat by Pulse 97 96 98 Oximetry (%) GENERAL:lethergic, somnolent HEAD: Normal with no signs of trauma. EYES: EOMI; PEERLA; no scleral icterus EARS, NOSE, THROAT: blood in oropharynx; blood at tongue. NECK:no JVD, no lymphadenopathy LUNGS: slight crackles at bases HEART: tachycardic normal S1 and S2 without murmur, rub or gallop. ABDOMEN: Soft, nontender, not distended, normoactive bowel sounds, no guarding, no rebound, no masses. No hepatomegaly or splenomegaly. MUSCULOSKELETAL: Normal range of motion at all joints. No bony deformities or tenderness. No CVA tenderness. EXTREMITIES: warm; well-perfused,no clubbing.cyanosis or edema NEUROLOGICAL: unable to obtain; patient somnolent. PSYCHIATRIC: Cooperative. Good eye contact. Appropriate mood and affect. SKIN: Warm, dry, normal turgor, no rashes or lesions noted, normal capillary refill. Laboratory Results - last 24 hr 11/17/18 11/17/18 11/17/18 17:45 17:45 17:45 WBC 5.9 RBC 4.54 Hgb 13.3 Hct 38.1 MCV 84.0 MCH 29.3 MCHC 34.8 RDW 16.0 H Plt Count 212 MPV 6.7 L Absolute Neuts (auto) 4.3 Neutrophils % 73.1 Lymphocytes % 18.4 Monocytes % 6.4 Eosinophils % 0.8 Basophils % 1.3 Nucleated RBC % 0 PT with INR INR Sodium 134 L Potassium 4.7 Chloride 98 Carbon Dioxide 26 Anion Gap 9 BUN 9 Creatinine 0.8 Creat Clearance w eGFR > 60 Random Glucose 158 H Lactic Acid 3.0 H* Calcium 8.5 Magnesium Total Bilirubin 0.7 AST 115 H ALT 71 H Alkaline Phosphatase 114 Total Protein 8.5 H Albumin 3.9 11/17/18 11/17/18 11/17/18 19:04 19:45 19:45 WBC RBC Hgb Hct MCV MCH MCHC RDW Plt Count MPV Absolute Neuts (auto) Neutrophils % Lymphocytes % Monocytes % Eosinophils % Basophils % Nucleated RBC % PT with INR 11.70 INR 0.99 Sodium Potassium Chloride Carbon Dioxide Anion Gap BUN Creatinine Creat Clearance w eGFR Random Glucose Lactic Acid Calcium Magnesium Cancelled 2.0 Total Bilirubin AST ALT Alkaline Phosphatase Total Protein Albumin ASSESSMENT/PLAN: 53 y/o male with PMH of HTN HLD DM alcohol abuse was brought in from [facility] after having a witnessed seizure and subsequently had 2 more witnessed seizures while being in the ED #Miguelures possibly 2/2 alcohol withdrawal v. medication non-compliance -loaded with 1gram of Keppra daily -c/w kepprra 500 BID in addition to patients Gabapentin 600 TID -seizure precautions -aspiration precautions -Dr. Joseph consulted from the ED -NPO for now -telemetry monitoring #Alcohol Withdrawal -c/w librium protocol -monitor CIWA -banana bag; thiamine/folate --monitor electrolytes #HTN -c/w home medications #DM -ISS -BGMS ACHS F/E/N LR monitor electrolytes NPO for now DVT PPX: lovenox Problem List - Problem (1) Seizure Code(s): R56.9 - UNSPECIFIED CONVULSIONS (2) DM2 (diabetes mellitus, type 2) Code(s): E11.9 - TYPE 2 DIABETES MELLITUS WITHOUT COMPLICATIONS (3) Alcohol dependence Code(s): F10.20 - ALCOHOL DEPENDENCE, UNCOMPLICATED Visit type - Emergency Visit Emergency Visit: Yes ED Registration Date: 11/17/18 Care time: The patient presented to the Emergency Department on the above date and was hospitalized for further evaluation of their emergent condition. - New Patient This patient is new to me today: Yes Date on this admission: 11/17/18 - Critical Care Critical Care patient: No
[2018-11-17] MEDS: GABAPENTIN 300 MG CAPSULE (FP) PO SCH (23:16)
[2018-11-17] MEDS: chlordiazePOXIDE HCL 25 MG CAPSULE PO SCH (23:20)
[2018-11-17] MEDS: INSULIN SLIDING SCALE (NOVOLOG) 1 VIAL SQ SCH (23:23)
[2018-11-17] MEDS: METOPROLOL TARTRATE 50 MG TABLET (FP) PO SCH (23:55)
[2018-11-18] MEDS ORDERED: IBUPROFEN 600 MG TABLET (FP) PO PRN ×2 (05:57→16:15)
[2018-11-18] MEDS: INSULIN SLIDING SCALE (NOVOLOG) 1 VIAL SQ SCH ×4 (06:18→21:13)
[2018-11-18] MEDS: chlordiazePOXIDE HCL 25 MG CAPSULE PO SCH ×4 (06:18→22:18)
[2018-11-18] MEDS: GABAPENTIN 300 MG CAPSULE (FP) PO SCH ×3 (06:18→21:09)
[2018-11-18 06:37] LABS: BASO % 0.5 % (0-2.0); EOS % 0.3 % (0-4.5); HEMATOCRIT 36.3 % (35.4-49); HEMOGLOBIN 12.5 GM/dL (11.7-16.9); LYMPH % 19.7 % (8-40); MCHC 34.5 g/dl (32.0-35.9); MEAN CELL VOLUME 84.2 fl (80-96); MEAN PLT VOLUME 6.9 fl (7.5-11.1); MONO % 5.1 % (3.8-10.2); NEUT % 74.4 % (42.8-82.8); PLATELET COUNT 172 K/MM3 (134-434); RBC 4.31 M/mm3 (4.00-5.60); RDW 16.2 % (11.9-15.9); WHITE BLOOD COUNT 8.8 K/mm3 (4.0-10.0)
[2018-11-18 07:27] LABS: ALBUMIN 3.7 g/dl (3.4-5.0); ALK PHOS 99 U/L (45-117); ANION GAP 10 MMOL/L (8-16); BILIRUBIN,TOTAL 0.8 mg/dL (0.2-1); BLOOD UREA NITROGEN 7 mg/dL (7-18); CALCIUM 8.2 mg/dL (8.5-10.1); CHLORIDE 100 mmol/L (98-107); CO2 27 mmol/L (21-32); CREATININE 0.9 mg/dL (0.55-1.3); GLUCOSE,RANDOM 124 mg/dL (74-106); MAGNESIUM 1.8 mg/dL (1.8-2.4); SGOT/AST 85 U/L (15-37); SGPT/ALT 58 U/L (13-61); SODIUM 136 mmol/L (136-145); TOT PROT 7.7 g/dl (6.4-8.2)
[2018-11-18 07:33] LABS: POTASSIUM 2.7 mmol/L (3.5-5.1)
--- NOTE | 2018-11-18 09:34 | CON.NEURO ---
Consult Consult Specialty:: Opal Referred by:: ER - History of Present Illness History of Present Illness: this is a 53-year-old right-handed -[place] man with history of alcohol abuse history of seizure disorder and asking me to the emergency room last night from the detox program with the breakthrough seizure. Patient was evaluated in the emergency room according to the patient was given before gabapentin 600 mg twice daily when necessary out of the medicine a week ago. Patient does not see a neurologist as an outpatient. Patient is a poor historian most of the history was obtained from the emergency room notes. Since admission to the telemetry patient has been stable I spoke to the emergency room physician last night regarding the patient's care - History Source History Provided By: Medical Record Limitations to Obtaining History: Clinical Condition - Alcohol/Substance Use Hx Alcohol Use: Yes - Smoking History Smoking history: Never smoked Have you smoked in the past 12 months: No Aproximately how many cigarettes per day: 1 If you are a former smoker, when did you quit?: at age 19 Home Medications - Allergies Allergies/Adverse Reactions: Allergies Allergy/AdvReac Type Severity Reaction Status Date / Time RASHAD Inhibitors Allergy Severe Swelling Verified 11/17/18 17:22 lisinopril Allergy Severe Swelling Verified 11/17/18 17:22 - Home Medications Home Medications: Ambulatory Orders Aspirin [ASA -] 81 mg PO DAILY 05/22/18 Amlodipine Besylate [Norvasc -] 10 mg PO DAILY #30 tablet 09/30/18 Atenolol [Tenormin -] 100 mg PO DAILY #30 tablet 09/30/18 Atorvastatin Ca [Lipitor] 20 mg PO DAILY 11/17/18 Folic Acid - 1 mg PO DAILY 11/17/18 Gabapentin 600 mg PO TID 11/17/18 Metoprolol Tartrate [Lopressor -] 50 mg PO BID 11/17/18 Naltrexone HCl 50 mg PO DAILY 11/17/18 Ranitidine [Zantac -] 150 mg PO DAILY 11/17/18 Thiamine Mononitrate [Vitamin B-1] 100 mg PO DAILY 11/17/18 Thiamine Mononitrate [Vitamin B-1] 100 mg PO DAILY 11/17/18 metFORMIN HCL [Glucophage -] 1,000 mg PO BID@0700,1630 11/17/18 Family Disease History - Family Disease History Family History: Unable to Obtain Family Disease History: Heart Disease: Mother (HTN), Other: Father (Alcohol), Mother, Brother (Alcohol) Review of Systems - Review of Systems Constitutional: reports: No Symptoms Eyes: reports: No Symptoms Neurological: reports: Headache, Incoordination, Numbness Physical Exam-Neuro Vital Signs: Vital Signs Temperature 101.0 F H 11/18/18 06:00 Pulse Rate 120 H 11/18/18 06:00 Respiratory Rate 18 11/18/18 06:00 Blood Pressure 148/88 11/18/18 06:00 O2 Sat by Pulse Oximetry (%) 98 11/18/18 05:24 Constitutional: Yes: Well Nourished Neck: Yes: WNL Cardiovascular: Yes: WNL Labs: CBC, BMP 11/18/18 05:30 11/18/18 05:30 INR, PTT INR 0.99 (0.83-1.09) 11/17/18 19:45 - Neuro Exam Level Of Consciousness: Yes: Oriented to Person, Oriented to Place, Oriented to Time Eyes: Yes: PERRLA Speech: Garbled Dominant Hand: Right Cranial Nerves II-XII Intact: Yes Gag: Present DTR's: 1+ Left Bicep, 1+ Right Bicep, 1+ Left Brachioradialis, 1+ Right Brachioradialis Response to light touch: Normal Response to pain prick: Normal Response to temperature: Normal Motor Strength: 3/5: Left Arm, Right Arm, Left Leg, Right Leg Gait: Deferred Imaging - Results Cat Scan: Image Reviewed Problem List - Problems (1) Seizure Assessment/Plan: questionable alcohol withdrawal seizure DT prophylaxis eepilepsy 1. Seizure precautions. 2. Librium protocol. 3. Thiamine 100 mg by mouth daily. 4. Keppra 500 mg once daily. 6. Neurontin 600 mg twice a day this is a very weak antiseizure medication. 7. EEG 8. Patient does not need to be on telemetry Code(s): R56.9 - UNSPECIFIED CONVULSIONS
--- NOTE | 2018-11-18 09:51 | EKG ---
Test Reason : Blood Pressure : / mmHG Vent. Rate : 113 BPM Atrial Rate : 113 BPM P-R Int : 160 ms QRS Dur : 086 ms QT Int : 332 ms P-R-T Axes : 069 073 -56 degrees QTc Int : 455 ms SINUS TACHYCARDIA POSSIBLE LEFT ATRIAL ENLARGEMENT LEFT VENTRICULAR HYPERTROPHY T WAVE ABNORMALITY, CONSIDER INFEROLATERAL ISCHEMIA ABNORMAL ECG WHEN COMPARED WITH ECG OF 31-JUL-2018 20:30, T WAVE VARIATION Confirmed by BRISSA BISHOP, RANCHO ([id number]) on 11/18/2018 9:51:23 AM Referred By: Confirmed By:RANCHO BRUMFIELD MD
[2018-11-18] MEDS ORDERED: PATIENT'S OWN MEDICATION (NON-FORMULARY) (Atenolol [Tenormin -] 100 MG) PO SCH (10:00)
[2018-11-18] MEDS ORDERED: levETIRAcetam 500 MG/5 ML INJECTION VIAL IVPB SCH (10:00)
[2018-11-18] MEDS ORDERED: THIAMINE HCL 200 MG/2 ML VIAL IVPB SCH (10:00)
[2018-11-18] MEDS ORDERED: ASPIRIN 81 MG CHEWABLE TABLETS PO SCH (10:00)
[2018-11-18] MEDS ORDERED: RANITIDINE HCL 150 MG TABLET (FP) PO SCH (10:00)
[2018-11-18] MEDS ORDERED: FOLIC ACID 1 MG TABLET (FP) PO SCH (10:00)
[2018-11-18] MEDS ORDERED: amLODIPine BESYLATE 10 MG TABLET (FP) PO SCH (10:00)
[2018-11-18] MEDS ORDERED: ENOXAPARIN NA (PORCINE) 40 MG/0.4 ML DISP.SYRIN SQ SCH (10:00)
[2018-11-18] MEDS ORDERED: POTASSIUM PHOSPHATE 30 MM in SODIUM CHLORIDE 500 ML IVPB ONE (10:05)
[2018-11-18] MEDS: KCL 10 MEQ IVPB 10 MEQ/100 ML INFUS.BAG IVPB SCH ×3 (10:49→12:55)
[2018-11-18] MEDS: METOPROLOL TARTRATE 50 MG TABLET (FP) PO SCH ×2 (11:04→21:09)
--- NOTE | 2018-11-18 12:45 | CONSULT ---
Admitting History and Physical - Primary Care Physician PCP: Caroline Villafuerte - Admission History of Present Illness: Per EMR: HISTORY OF PRESENT ILLNESS: 53 y/o male with PMH of HTN, HLD, seizures, DM, alcohol abuse was sent in from [facility] where he was there for alcohol withdrawal where he suffered a witnessed seizure- the seizure was apparently 4 minutes long with jerking motions of the extremities and patient apparently hit his head and bit his tongue suffering a laceration - he was postictal after the seizure. when he got to the ED he suffered 2 more seizures where he was given 2mg of ativan each time. patient has a known seizure disorder where he usually takes gabapentin 600 TID, however he apparently ran out and has not taken it for over a week and a half. it is unclear when patients last drink was and he was unable to say specifically how much he drank or when he stopped drinking as he was very somnolent post seizure. ER course was notable for: (1) 2 witnesses seizures each lasting about 2 mins- receiving 2 mg of ativan each time (2) BP on arrival 173/92; tachy 10 113 (3)dr carson contacted from ED Selected Entries 11/17/18 11/17/18 11/18/18 16:49 22:45 02:46 Temperature 99.3 F 98.8 F 98 F 11/18/18 11/18/18 06:00 09:10 Temperature 101.0 F H 98.6 F Laboratory Tests 11/17/18 11/17/18 11/17/18 17:45 17:45 17:45 WBC 5.9 Potassium 4.7 Lactic Acid 3.0 H* 11/18/18 11/18/18 11/18/18 00:24 05:30 05:30 WBC 8.8 Potassium 2.7 L* Lactic Acid 1.4 My first consult with this pt. History Source: Patient, Medical Record Limitations to Obtaining History: Clinical Condition - Smoking History Smoking history: Never smoked Have you smoked in the past 12 months: No Aproximately how many cigarettes per day: 1 If you are a former smoker, when did you quit?: at age 19 - Alcohol/Substance Use Hx Alcohol Use: Yes - Social History Usual Living Arrangement: Yes: Other (Homeless for many years, moves around to dif shelters.) History - Admission Reason For Visit: SEIZURE DISORDER - Diagnostics X-ray: Report Reviewed - General Mental Status: Alert and Oriented, Awake and Alert, Able to Follow Commands Attention: Distractible, Mild Impairment (eyes closed, slow to respond) Head/Neck Control: Good - Hearing Hearing: Normal Hearing Aide: No Speech Evaluation - Communication Primary Language: FRENCH Communication: Yes: Simple Responses Oral Expression Ability: Yes: Mild Impairment - Speech Production Able to Make Needs Known: Yes: Mildly Impaired Intelligibility: Yes: Mildly Impaired - Speech Characteristics Voice Loudness: Mildly Soft/Quiet Voice Pitch: Yes: Normal Voice Phonatory-based Quality: Yes: Normal Speech Clarity: < 75% Nasal Resonance: Normal Articulation: Yes: Imprecise (seems sleepy) Voice, Other Observations: Yes: Progressively Weak Voice - Language/Auditory Comprehension Follows: Yes: 1 Stage Simple Commands Observation: Able to respond to yes/no queries: Yes, Comprehends Conversational Speech: Yes, Benefits from Repetiton: Yes - Language/Verbal Expression Able to Communicate Wants and Needs: Yes: Mildly Impaired Functional Communication Status: Yes: Mildly Impaired - Swallow Evaluation/Bedside Assessment Current Nutritional Intake: NPO Oral Secretions: Yes: WFL Dentition: Yes: Adequate Facial Symmetry at Rest: Symmetrical Facial Symmetry on Retraction: Symmetrical Against Resistance Opening: Weak Against Resistance Closing: Weak Smile: Weak Lingual Movement: Symmetric Lingual Speed of Movement: Reduced Lingual Movement Strgth Against Opposition: Reduced Lingual Movement Characteristics: Normal Velopharyngeal Movement: Normal Laryngeal Elevation: WFL Laryngeal Movement: Able to Palpate Rate of Intake: WFL Bolus Size: WFL Labial Seal: WFL Chewing: WFL Oral Prep Time: WFL A-P Transit: WFL Pocketing: None Timing of Swallow: WFL Coughing/Throat Clear: No Change in Voice: No Recommendations - Speech Evaluation, Impression/Plan Impression: Responsive. Appropriate. Sleepy, Good mastication, (-) 3 oz water test - Dysphagia Impressions/Plan Dysphagia Impressions: Mild Impairment (sleepy), Ongoing Evaluation *Silent aspiration: cannot be R/O at bedside Dysphagia Treatment Plan: Small Bites, Chin Tuck/Down, Clear Pocket Food, 1/2 tsp. at a time, Elevate HOB during feed, Other (Assist withy meals if sleepy) - Recommendations Diet Consistency: Regular (soft) Medication Administration: Whole with water Liquids: Thin Liquids
--- NOTE | 2018-11-18 15:33 | PN ---
Physical Exam: SUBJECTIVE: Patient seen and examined at bedside. Pt very lethargic, unable to obtain ROS. Per patient, pt was previously awake earlier this morning and able to take PO meds. OBJECTIVE: Last Vital Signs Temp Pulse Resp BP Pulse Ox 98.4 F 99 H 20 142/80 97 11/18/18 14:00 11/18/18 14:00 11/18/18 14:00 11/18/18 14:00 11/18/18 09:20 GENERAL: Lethargic, somnolent. Babbling words, incomprehensible. Resting comfortably in bed. CBC, BMP 11/18/18 05:30 11/18/18 05:30 Active Medications Amlodipine Besylate (Norvasc -) 10 mg PO DAILY [facility] Last Admin: 11/18/18 11:04 Dose: 10 mg Aspirin (Asa -) 81 mg PO DAILY [facility] Last Admin: 11/18/18 11:05 Dose: 81 mg Atorvastatin Calcium (Lipitor -) 20 mg PO [facility] Chlordiazepoxide HCl (Librium -) 50 mg PO [id number] [facility] Stop: 11/18/18 17:01 Last Admin: 11/18/18 13:48 Dose: 50 mg Chlordiazepoxide HCl (Librium -) 25 mg PO [id number] [facility] Stop: 11/19/18 17:01 Chlordiazepoxide HCl (Librium -) 15 mg PO [id number] [facility] Stop: 11/20/18 17:01 Chlordiazepoxide HCl (Librium -) 25 mg PO Q4H PRN PRN Reason: WITHDRAWAL(CONT SUBST) Stop: 11/20/18 21:11 Chlordiazepoxide HCl (Librium -) 10 mg PO [id number] [facility] Stop: 11/21/18 17:01 Enoxaparin Sodium (Lovenox -) 40 mg SQ DAILY [facility] Last Admin: 11/18/18 09:30 Dose: 40 mg Folic Acid (Folic Acid -) 1 mg PO DAILY [facility] Last Admin: 11/18/18 11:05 Dose: 1 mg Gabapentin (Neurontin -) 600 mg PO TID [facility] Last Admin: 11/18/18 13:49 Dose: 600 mg Potassium Phosphate 30 mm/ (Sodium Chloride) 510 mls @ 62.5 mls/hr IVPB ONCE ONE Stop: 11/18/18 18:14 Last Admin: 11/18/18 13:54 Dose: 62.5 mls/hr Ibuprofen (Motrin -) 600 mg PO Q6H PRN PRN Reason: FEVER Last Admin: 11/18/18 06:19 Dose: 600 mg Insulin Aspart (Novolog Vial Sliding Scale -) 1 vial SQ ACHS [facility]; Protocol Last Admin: 11/18/18 12:30 Dose: Not Given Levetiracetam (Keppra Injection -) 500 mg IVPB BID [facility] Last Admin: 11/18/18 09:27 Dose: 500 mg Metoprolol Tartrate (Lopressor -) 50 mg PO BID [facility] Last Admin: 11/18/18 11:04 Dose: 50 mg Ranitidine HCl (Zantac -) 150 mg PO DAILY [facility] Last Admin: 11/18/18 11:04 Dose: 150 mg Thiamine HCl (Vitamin B1 Injection -) 200 mg IVPB DAILY [facility] Last Admin: 11/18/18 09:27 Dose: 200 mg ASSESSMENT/PLAN: 53 y/o male with PMH of HTN HLD DM alcohol abuse was brought in from [facility] after having a witnessed seizure and subsequently had 2 more witnessed seizures while being in the ED. #Seizures; possibly 2/2 alcohol withdrawal v. medication non-compliance -Keppra 500 mg BID -seizure precautions/aspiration precautions -Per neuro, cont Keppra, Gabapentin 600 mg TID (per neuro, this is a very weak seizure medication) -Per swallow eval, OK to start soft diet -telemetry monitoring #Alcohol Withdrawal; no signs of withdrawal at this time. -c/w librium protocol -monitor CIWA -banana bag; Thiamine 200 mg QD, Folate 1 mg QD -monitor electrolytes #Hypokalemia; today K+ 2.7 -K-Phos 30 mmol given -recheck BMP today -replete PRN #HTN Cont home meds: Amlodipine 10 QD, Lopressor 50 BID #HLD Cont home med: Atorvastatin 20 HS, Asp 81 #Ppx -Zantac 150 PO QD -Lovenox 40 #NIDDM -ISS -BGMS ACHS F/E/N -no IVf needed -monitor electrolytes -soft diet dispo -transfer to med-surg Visit type - Emergency Visit Emergency Visit: Yes ED Registration Date: 11/18/18 Care time: The patient presented to the Emergency Department on the above date and was hospitalized for further evaluation of their emergent condition. - New Patient This patient is new to me today: Yes Date on this admission: 11/18/18 - Critical Care Critical Care patient: No
[2018-11-18] MEDS ORDERED: chlordiazePOXIDE HCL 25 MG CAPSULE PO PRN (16:15)
[2018-11-18] MEDS ORDERED: chlordiazePOXIDE HCL 25 MG CAPSULE PO SCH ×2 (17:00→23:00)
--- NOTE | 2018-11-18 19:29 | PN ---
Teaching Attending Note Name of Resident: Nasima Byeer ATTENDING PHYSICIAN STATEMENT I saw and evaluated the patient. I reviewed the resident's note and discussed the case with the resident. I agree with the resident's findings and plan as documented. SUBJECTIVE: Patient is lying in bed comfortably, with no acute distress. OBJECTIVE: Vital Signs Temperature 98.4 F 11/18/18 14:00 Pulse Rate 99 H 11/18/18 14:00 Respiratory Rate 20 11/18/18 14:00 Blood Pressure 142/80 11/18/18 14:00 O2 Sat by Pulse Oximetry (%) 97 11/18/18 09:20 GENERAL:lethergic, somnolent HEAD: Normal with no signs of trauma. EYES: EOMI; PEERLA; no scleral icterus EARS, NOSE, THROAT: No exudate, no erythema. NECK:no JVD, no lymphadenopathy LUNGS: decreased BS at the bases. HEART: RRR, S1 and S2 positive , no murmur, rub or gallop appreciated. ABDOMEN: Soft,Nt, ND, normoactive bowel sounds, no guarding, no rebound, no masses. No hepatomegaly or splenomegaly. MUSCULOSKELETAL: Normal range of motion at all joints. No bony deformities or tenderness. No CVA tenderness. EXTREMITIES: warm; well-perfused,no clubbing.cyanosis or edema NEUROLOGICAL: unable to obtain; patient somnolent. PSYCHIATRIC: Cooperative. Good eye contact. Appropriate mood and affect. SKIN: Warm, dry, normal turgor, no rashes or lesions noted, normal capillary refill. CBCD WBC 8.8 K/mm3 (4.0-10.0) 11/18/18 05:30 RBC 4.31 M/mm3 (4.00-5.60) 11/18/18 05:30 Hgb 12.5 GM/dL (11.7-16.9) 11/18/18 05:30 Hct 36.3 % (35.4-49) 11/18/18 05:30 MCV 84.2 fl (80-96) 11/18/18 05:30 MCHC 34.5 g/dl (32.0-35.9) 11/18/18 05:30 RDW 16.2 % (11.9-15.9) H 11/18/18 05:30 Plt Count 172 K/MM3 (134-434) 11/18/18 05:30 MPV 6.9 fl (7.5-11.1) L 11/18/18 05:30 CMP Sodium 136 mmol/L (136-145) 11/18/18 05:30 Potassium 2.7 mmol/L (3.5-5.1) L* 11/18/18 05:30 Chloride 100 mmol/L (98-107) 11/18/18 05:30 Carbon Dioxide 27 mmol/L (21-32) 11/18/18 05:30 Anion Gap 10 MMOL/L (8-16) 11/18/18 05:30 BUN 7 mg/dL (7-18) 11/18/18 05:30 Creatinine 0.9 mg/dL (0.55-1.3) 11/18/18 05:30 Creat Clearance w eGFR > 60 (>60) 11/18/18 05:30 Random Glucose 124 mg/dL (74-106) H 11/18/18 05:30 Calcium 8.2 mg/dL (8.5-10.1) L 11/18/18 05:30 Total Bilirubin 0.8 mg/dL (0.2-1) 11/18/18 05:30 AST 85 U/L (15-37) H 11/18/18 05:30 ALT 58 U/L (13-61) 11/18/18 05:30 Alkaline Phosphatase 99 U/L (45-117) 11/18/18 05:30 Total Protein 7.7 g/dl (6.4-8.2) 11/18/18 05:30 Albumin 3.7 g/dl (3.4-5.0) 11/18/18 05:30 Current Medications Generic Name Dose Route Start Last Admin Trade Name Freq PRN Reason Stop Dose Admin Amlodipine Besylate 10 mg 11/19/18 10:00 Norvasc - PO DAILY [facility] Aspirin 81 mg 11/19/18 10:00 Asa - PO DAILY [facility] Atorvastatin Calcium 20 mg 11/18/18 22:00 Lipitor - PO HS [facility] Chlordiazepoxide HCl 25 mg 11/18/18 16:15 Librium - PO 11/20/18 21:11 Q4H PRN WITHDRAWAL(CONT SUBST) Chlordiazepoxide HCl 25 mg 11/18/18 23:00 Librium - PO 11/19/18 17:01 [id number] [facility] Chlordiazepoxide HCl 15 mg 11/19/18 23:00 Librium - PO 11/20/18 17:01 [id number] [facility] Chlordiazepoxide HCl 10 mg 11/20/18 23:00 Librium - PO 11/21/18 17:01 [id number] [facility] Enoxaparin Sodium 40 mg 11/19/18 10:00 Lovenox - SQ DAILY [facility] Folic Acid 1 mg 11/19/18 10:00 Folic Acid - PO DAILY [facility] Gabapentin 600 mg 11/18/18 22:00 Neurontin - PO TID [facility] Ibuprofen 600 mg 11/18/18 16:15 Motrin - PO Q6H PRN FEVER Insulin Aspart 1 vial 11/18/18 16:30 11/18/18 17:33 Novolog Vial Sliding Scale - SQ 2 unit ACHS [facility] Administration Protocol Levetiracetam 500 mg 11/18/18 22:00 Keppra Injection - IVPB BID [facility] Metoprolol Tartrate 50 mg 11/18/18 22:00 Lopressor - PO BID [facility] Ranitidine HCl 150 mg 11/19/18 10:00 Zantac - PO DAILY [facility] Thiamine HCl 200 mg 11/19/18 10:00 Vitamin B1 Injection - IVPB DAILY [facility] Home Medications Medication Instructions Recorded Aspirin [ASA -] 81 mg PO DAILY 05/22/18 Amlodipine Besylate [Norvasc -] 10 mg PO DAILY #30 tablet 09/30/18 Atenolol [Tenormin -] 100 mg PO DAILY #30 tablet 09/30/18 Atorvastatin Ca [Lipitor] 20 mg PO DAILY 11/17/18 Folic Acid - 1 mg PO DAILY 11/17/18 Gabapentin 600 mg PO TID 11/17/18 Metoprolol Tartrate [Lopressor -] 50 mg PO BID 11/17/18 Naltrexone HCl 50 mg PO DAILY 11/17/18 Ranitidine [Zantac -] 150 mg PO DAILY 11/17/18 Thiamine Mononitrate [Vitamin B-1] 100 mg PO DAILY 11/17/18 Thiamine Mononitrate [Vitamin B-1] 100 mg PO DAILY 11/17/18 metFORMIN HCL [Glucophage -] 1,000 mg PO BID@0700,1630 11/17/18 ASSESSMENT AND PLAN: 53 y/o male with PMH of HTN HLD DM alcohol abuse was brought in from [facility] after having a witnessed seizure and subsequently had 2 more witnessed seizures while being in the ED. #Hx of Seizures with seizure activity due to alcohol withdrawal on Keppra 500 mg BID, also patient is noncompliant with his seizure medications. seizure precautions/aspiration precautions, alcohol withdrawal. #Alcohol Withdrawal: on librium protocol, on Thiamine 200 mg QD, Folate 1 mg QD #Hypokalemia: K+ 2.7, will replete # hypophosphetemia will replete with K-Phos 30 mmol #HTN continue home meds: Amlodipine 10 QD, Lopressor 50 BID #HLD cont home med: Atorvastatin 20 HS, Asp 81 #NIDDM ss with coverage DVT px: Lovenox 40 GI Px: Zantac
[2018-11-18 20:30] LABS: ANION GAP 10 MMOL/L (8-16); BLOOD UREA NITROGEN 8 mg/dL (7-18); CALCIUM 7.9 mg/dL (8.5-10.1); CHLORIDE 104 mmol/L (98-107); CO2 24 mmol/L (21-32); CREATININE 0.8 mg/dL (0.55-1.3); GLUCOSE,RANDOM 115 mg/dL (74-106); POTASSIUM 3.4 mmol/L (3.5-5.1); SODIUM 138 mmol/L (136-145)
[2018-11-18] MEDS ORDERED: INSULIN (NOVOLOG) ASPART 100 UNITS/ML 10ML VIAL ONE (20:59)
[2018-11-18 21:03] LABS: URINE APPEARANCE CLEAR; URINE BILIRUBIN NEGATIVE (<2.0 mg/dL); URINE COLOR YELLOW; URINE GLUCOSE (UA) NEGATIVE (NEGATIVE); URINE KETONE NEGATIVE (NEGATIVE); URINE LEUK ESTERASE NEGATIVE (NEGATIVE); URINE NITRITE NEGATIVE (NEGATIVE); URINE PROTEIN 2+ (NEGATIVE); URINE UROBILINOGEN NEGATIVE mg/dL (0.2-1.0)
[2018-11-18] MEDS: ATORVASTATIN CA 20 MG TABLET (FP) PO SCH (21:09)
[2018-11-18] MEDS: levETIRAcetam 500 MG/5 ML INJECTION VIAL IVPB SCH (21:09)
[2018-11-18 21:17] LABS: EPI CELLS RARE /HPF (FEW); URINE BACTERIA RARE /hpf (NONE SEEN); URINE MUCUS RARE
[2018-11-18 21:26] LABS: COCAINE, UR NEGATIVE ng/ml (CUTOFF=300); METHADONE, UR NEGATIVE ng/ml (CUTOFF=300); OPIATES, URI NEGATIVE ng/ml (CUTOFF=300); PHENCYCLIDINE,URINE NEGATIVE ng/ml (CUTOFF=25); URINE AMPHETAMINES NEGATIVE ng/ml (CUTOFF=500); URINE BARBITURATES NEGATIVE ng/ml (CUTOFF=200)
[2018-11-18 21:34] LABS: URINE BENZODIAZEPINES POSITIVE ng/ml (CUTOFF=200)
[2018-11-18] MEDS ORDERED: ATORVASTATIN CA 20 MG TABLET (FP) PO SCH (22:00)
[2018-11-19] MEDS: chlordiazePOXIDE HCL 25 MG CAPSULE PO SCH ×3 (05:14→16:48)
[2018-11-19] MEDS: GABAPENTIN 300 MG CAPSULE (FP) PO SCH ×3 (05:37→21:10)
[2018-11-19] MEDS: INSULIN SLIDING SCALE (NOVOLOG) 1 VIAL SQ SCH ×4 (06:07→22:12)
--- NOTE | 2018-11-19 07:58 | PN ---
Teaching Attending Note Name of Resident: Nasima Beyer ATTENDING PHYSICIAN STATEMENT I saw and evaluated the patient. I reviewed the resident's note and discussed the case with the resident. I agree with the resident's findings and plan as documented. SUBJECTIVE: Patient is better with no acute distress. awake, alert. OBJECTIVE: Vital Signs Temperature 98.5 F 11/19/18 06:27 Pulse Rate 109 H 11/19/18 06:27 Respiratory Rate 20 11/19/18 06:27 Blood Pressure 113/74 11/19/18 06:27 O2 Sat by Pulse Oximetry (%) 96 11/18/18 21:00 GENERAL:lethergic, somnolent HEAD: Normal with no signs of trauma. EYES: EOMI; PEERLA; no scleral icterus EARS, NOSE, THROAT: No exudate, no erythema. NECK:no JVD, no lymphadenopathy LUNGS: decreased BS at the bases. HEART: RRR, S1 and S2 positive , no murmur, rub or gallop appreciated. ABDOMEN: Soft,Nt, ND, normoactive bowel sounds, no guarding, no rebound, no masses. No hepatomegaly or splenomegaly. MUSCULOSKELETAL: Normal range of motion at all joints. No bony deformities or tenderness. No CVA tenderness. EXTREMITIES: warm; well-perfused,no clubbing.cyanosis or edema NEUROLOGICAL: comfortable, CN 2-12 grossly intact. nt. PSYCHIATRIC: Cooperative. Good eye contact. Appropriate mood and affect. SKIN: Warm, dry, normal turgor, no rashes or lesions noted, normal capillary refill. CBCD WBC 8.8 K/mm3 (4.0-10.0) 11/18/18 05:30 RBC 4.31 M/mm3 (4.00-5.60) 11/18/18 05:30 Hgb 12.5 GM/dL (11.7-16.9) 11/18/18 05:30 Hct 36.3 % (35.4-49) 11/18/18 05:30 MCV 84.2 fl (80-96) 11/18/18 05:30 MCHC 34.5 g/dl (32.0-35.9) 11/18/18 05:30 RDW 16.2 % (11.9-15.9) H 11/18/18 05:30 Plt Count 172 K/MM3 (134-434) 11/18/18 05:30 MPV 6.9 fl (7.5-11.1) L 11/18/18 05:30 CMP Sodium 138 mmol/L (136-145) 11/18/18 19:00 Potassium 3.4 mmol/L (3.5-5.1) L 11/18/18 19:00 Chloride 104 mmol/L (98-107) 11/18/18 19:00 Carbon Dioxide 24 mmol/L (21-32) 11/18/18 19:00 Anion Gap 10 MMOL/L (8-16) 11/18/18 19:00 BUN 8 mg/dL (7-18) 11/18/18 19:00 Creatinine 0.8 mg/dL (0.55-1.3) 11/18/18 19:00 Creat Clearance w eGFR > 60 (>60) 11/18/18 19:00 Random Glucose 115 mg/dL (74-106) H 11/18/18 19:00 Calcium 7.9 mg/dL (8.5-10.1) L 11/18/18 19:00 Total Bilirubin 0.8 mg/dL (0.2-1) 11/18/18 05:30 AST 85 U/L (15-37) H 11/18/18 05:30 ALT 58 U/L (13-61) 11/18/18 05:30 Alkaline Phosphatase 99 U/L (45-117) 11/18/18 05:30 Total Protein 7.7 g/dl (6.4-8.2) 11/18/18 05:30 Albumin 3.7 g/dl (3.4-5.0) 11/18/18 05:30 Current Medications Generic Name Dose Route Start Last Admin Trade Name Freq PRN Reason Stop Dose Admin Amlodipine Besylate 10 mg 11/19/18 10:00 Norvasc - PO DAILY [facility] Aspirin 81 mg 11/19/18 10:00 Asa - PO DAILY [facility] Atorvastatin Calcium 20 mg 11/18/18 22:00 11/18/18 21:09 Lipitor - PO 20 mg HS [facility] Administration Chlordiazepoxide HCl 25 mg 11/18/18 16:15 Librium - PO 11/20/18 21:11 Q4H PRN WITHDRAWAL(CONT SUBST) Chlordiazepoxide HCl 25 mg 11/18/18 23:00 11/19/18 05:14 Librium - PO 11/19/18 17:01 25 mg [id number] [facility] Administration Chlordiazepoxide HCl 15 mg 11/19/18 23:00 Librium - PO 11/20/18 17:01 [id number] [facility] Chlordiazepoxide HCl 10 mg 11/20/18 23:00 Librium - PO 11/21/18 17:01 [id number] [facility] Enoxaparin Sodium 40 mg 11/19/18 10:00 Lovenox - SQ DAILY [facility] Folic Acid 1 mg 11/19/18 10:00 Folic Acid - PO DAILY [facility] Gabapentin 600 mg 11/18/18 22:00 11/19/18 05:37 Neurontin - PO 600 mg TID [facility] Administration Ibuprofen 600 mg 11/18/18 16:15 Motrin - PO Q6H PRN FEVER Insulin Aspart 1 vial 11/18/18 16:30 11/19/18 06:07 Novolog Vial Sliding Scale - SQ Not Given [facility] Protocol Levetiracetam 500 mg 11/18/18 22:00 11/18/18 21:09 Keppra Injection - IVPB 500 mg BID [facility] Administration Metoprolol Tartrate 50 mg 11/18/18 22:00 11/18/18 21:09 Lopressor - PO 50 mg BID [facility] Administration Ranitidine HCl 150 mg 11/19/18 10:00 Zantac - PO DAILY [facility] Thiamine HCl 200 mg 11/19/18 10:00 Vitamin B1 Injection - IVPB DAILY [facility] Home Medications Medication Instructions Recorded Aspirin [ASA -] 81 mg PO DAILY 05/22/18 Amlodipine Besylate [Norvasc -] 10 mg PO DAILY #30 tablet 09/30/18 Atenolol [Tenormin -] 100 mg PO DAILY #30 tablet 09/30/18 Atorvastatin Ca [Lipitor] 20 mg PO DAILY 11/17/18 Folic Acid - 1 mg PO DAILY 11/17/18 Gabapentin 600 mg PO TID 11/17/18 Metoprolol Tartrate [Lopressor -] 50 mg PO BID 11/17/18 Naltrexone HCl 50 mg PO DAILY 11/17/18 Ranitidine [Zantac -] 150 mg PO DAILY 11/17/18 Thiamine Mononitrate [Vitamin B-1] 100 mg PO DAILY 11/17/18 Thiamine Mononitrate [Vitamin B-1] 100 mg PO DAILY 11/17/18 metFORMIN HCL [Glucophage -] 1,000 mg PO BID@0700,1630 11/17/18 ASSESSMENT AND PLAN: 53 y/o male with PMH of HTN HLD DM alcohol abuse was brought in from [facility] after having a witnessed seizure and subsequently had 2 more witnessed seizures while being in the ED. #Hx of Seizures with seizure activity due to alcohol withdrawal on Keppra 500 mg BID, no further seizure , also patient is noncompliant with his seizure medications. seizure precautions/aspiration precautions, alcohol withdrawal. #Alcohol Withdrawal: on librium protocol, on Thiamine 200 mg QD, Folate 1 mg QD #Hypokalemia: K+ 2.7,-->3.4 willcontinue to monitor and replete # hypophosphetemia will replete with K-Phos 30 mmol #HTN continue home meds: Amlodipine 10 QD, Lopressor 50 BID #HLD cont home med: Atorvastatin 20 HS, Asp 81 #NIDDM ss with coverage DVT px: Lovenox 40 GI Px: Zantac once stable will tx back to detox.
[2018-11-19] MEDS: levETIRAcetam 500 MG/5 ML INJECTION VIAL IVPB SCH ×2 (09:17→21:10)
[2018-11-19] MEDS: METOPROLOL TARTRATE 50 MG TABLET (FP) PO SCH ×2 (09:20→21:09)
[2018-11-19 09:30] LABS: HEMATOCRIT 35.6 % (35.4-49); HEMOGLOBIN 12.3 GM/dL (11.7-16.9); MCH 29.2 pg (25.7-33.7); MCHC 34.5 g/dl (32.0-35.9); MEAN CELL VOLUME 84.7 fl (80-96); MEAN PLT VOLUME 7.4 fl (7.5-11.1); PLATELET COUNT 144 K/MM3 (134-434); RDW 16.1 % (11.9-15.9); WHITE BLOOD COUNT 9.6 K/mm3 (4.0-10.0)
[2018-11-19] MEDS ORDERED: RANITIDINE HCL 150 MG TABLET (FP) PO SCH (10:00)
[2018-11-19] MEDS ORDERED: ENOXAPARIN NA (PORCINE) 40 MG/0.4 ML DISP.SYRIN SQ SCH (10:00)
[2018-11-19] MEDS ORDERED: ASPIRIN 81 MG CHEWABLE TABLETS PO SCH (10:00)
[2018-11-19] MEDS ORDERED: FOLIC ACID 1 MG TABLET (FP) PO SCH (10:00)
[2018-11-19] MEDS ORDERED: amLODIPine BESYLATE 10 MG TABLET (FP) PO SCH (10:00)
[2018-11-19] MEDS ORDERED: THIAMINE HCL 200 MG/2 ML VIAL IVPB SCH (10:00)
[2018-11-19 10:04] LABS: ANION GAP 11 MMOL/L (8-16); BLOOD UREA NITROGEN 10 mg/dL (7-18); CALCIUM 8.1 mg/dL (8.5-10.1); CHLORIDE 102 mmol/L (98-107); CO2 24 mmol/L (21-32); GLUCOSE,RANDOM 235 mg/dL (74-106); SODIUM 137 mmol/L (136-145)
[2018-11-19 10:11] LABS: POTASSIUM 2.8 mmol/L (3.5-5.1)
[2018-11-19] MEDS ORDERED: POTASSIUM CHLORIDE TABS 10 MEQ TABLET.ER (FP) PO SCH (10:15)
[2018-11-19] MEDS ORDERED: MAGNESIUM CITRATE 300 ML BOTTLE PO ONE (10:30)
[2018-11-19 10:53] LABS: MAGNESIUM 1.5 mg/dL (1.8-2.4)
[2018-11-19] MEDS: KCL 10 MEQ IVPB 10 MEQ/100 ML INFUS.BAG IVPB SCH ×3 (10:55→14:37)
[2018-11-19] MEDS ORDERED: INSULIN (NOVOLOG) ASPART 100 UNITS/ML 10ML VIAL ONE ×2 (11:21→16:38)
--- NOTE | 2018-11-19 13:02 | PN ---
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
--- NOTE | 2018-11-19 13:51 | PN ---
Physical Exam: SUBJECTIVE: Patient seen and examined at bedside. Per nurse, pt kept getting out of bed overnight and had to be watched in hallway. Otherwise, no other acute events overnight. Pt requesting to have his "clothes and money" that he left in [facility] to be brought to him. No seizure activity witnessed overnight. Pt denies chest pain, sob, abd pain, urinary/bowel symptoms. OBJECTIVE: Last Vital Signs Temp Pulse Resp BP Pulse Ox 98.8 F 109 H 20 122/78 98 11/19/18 10:00 11/19/18 10:00 11/19/18 10:00 11/19/18 10:00 11/19/18 09:00 GENERAL: Awake and alert. Responds to commands. Resting comfortably. HEENT: AT/NC. EOMI. FIDEL. Facial symmetry noted. No droop. Slightly slurred speech. NECK:no JVD, no lymphadenopathy LUNGS: CTA B/L. No wheezes heard. HEART: RRR. Normal S1, S2. ABDOMEN: Obese. Soft, NT/ND. +BS in all 4Qs. MUSCULOSKELETAL: No deformities. EXTREMITIES: warm; well-perfused,no clubbing.cyanosis or edema PSYCHIATRIC: Cooperative. Good eye contact. Appropriate mood and affect. SKIN: Warm, dry, normal turgor, no rashes or lesions noted, normal capillary refill. CBCD WBC 9.6 K/mm3 (4.0-10.0) 11/19/18 08:50 RBC 4.20 M/mm3 (4.00-5.60) 11/19/18 08:50 Hgb 12.3 GM/dL (11.7-16.9) 11/19/18 08:50 Hct 35.6 % (35.4-49) 11/19/18 08:50 MCV 84.7 fl (80-96) 11/19/18 08:50 MCHC 34.5 g/dl (32.0-35.9) 11/19/18 08:50 RDW 16.1 % (11.9-15.9) H 11/19/18 08:50 Plt Count 144 K/MM3 (134-434) 11/19/18 08:50 MPV 7.4 fl (7.5-11.1) L 11/19/18 08:50 CMP Sodium 137 mmol/L (136-145) 11/19/18 08:50 Potassium 2.8 mmol/L (3.5-5.1) L* 11/19/18 08:50 Chloride 102 mmol/L (98-107) 11/19/18 08:50 Carbon Dioxide 24 mmol/L (21-32) 11/19/18 08:50 Anion Gap 11 MMOL/L (8-16) 11/19/18 08:50 BUN 10 mg/dL (7-18) 11/19/18 08:50 Creatinine 1.0 mg/dL (0.55-1.3) 11/19/18 08:50 Creat Clearance w eGFR > 60 (>60) 11/19/18 08:50 Calcium 8.1 mg/dL (8.5-10.1) L 11/19/18 08:50 Total Bilirubin 0.8 mg/dL (0.2-1) 11/18/18 05:30 AST 85 U/L (15-37) H 11/18/18 05:30 ALT 58 U/L (13-61) 11/18/18 05:30 Alkaline Phosphatase 99 U/L (45-117) 11/18/18 05:30 Total Protein 7.7 g/dl (6.4-8.2) 11/18/18 05:30 Albumin 3.7 g/dl (3.4-5.0) 11/18/18 05:30 Active Medications Amlodipine Besylate (Norvasc -) 10 mg PO DAILY [facility] Last Admin: 11/19/18 09:23 Dose: 10 mg Aspirin (Asa -) 81 mg PO DAILY [facility] Last Admin: 11/19/18 09:20 Dose: 81 mg Atorvastatin Calcium (Lipitor -) 20 mg PO HS [facility] Last Admin: 11/18/18 21:09 Dose: 20 mg Chlordiazepoxide HCl (Librium -) 25 mg PO Q4H PRN PRN Reason: WITHDRAWAL(CONT SUBST) Stop: 11/20/18 21:11 Chlordiazepoxide HCl (Librium -) 25 mg PO [id number] [facility] Stop: 11/19/18 17:01 Last Admin: 11/19/18 10:54 Dose: 25 mg Chlordiazepoxide HCl (Librium -) 15 mg PO [id number] [facility] Stop: 11/20/18 17:01 Chlordiazepoxide HCl (Librium -) 10 mg PO [id number] [facility] Stop: 11/21/18 17:01 Enoxaparin Sodium (Lovenox -) 40 mg SQ DAILY [facility] Last Admin: 11/19/18 09:20 Dose: 40 mg Folic Acid (Folic Acid -) 1 mg PO DAILY [facility] Last Admin: 11/19/18 09:20 Dose: 1 mg Gabapentin (Neurontin -) 600 mg PO TID [facility] Last Admin: 11/19/18 05:37 Dose: 600 mg Ibuprofen (Motrin -) 600 mg PO Q6H PRN PRN Reason: FEVER Insulin Aspart (Novolog Vial Sliding Scale -) 1 vial SQ ACHS [facility]; Protocol Last Admin: 11/19/18 11:22 Dose: 2 unit Levetiracetam (Keppra Injection -) 500 mg IVPB BID [facility] Last Admin: 11/19/18 09:17 Dose: 500 mg Metoprolol Tartrate (Lopressor -) 50 mg PO BID [facility] Last Admin: 11/19/18 09:20 Dose: 50 mg Potassium Chloride (K-Dur -) 40 meq PO DAILY [facility] Last Admin: 11/19/18 10:54 Dose: 40 meq Ranitidine HCl (Zantac -) 150 mg PO DAILY [facility] Last Admin: 11/19/18 09:21 Dose: 150 mg Thiamine HCl (Vitamin B1 Injection -) 200 mg IVPB DAILY [facility] Last Admin: 11/19/18 10:15 Dose: 200 mg ASSESSMENT/PLAN: 53 y/o male with PMH of HTN HLD DM alcohol abuse was brought in from [facility] after having a witnessed seizure and subsequently had 2 more witnessed seizures while being in the ED. #Seizures; possibly 2/2 alcohol withdrawal v. medication non-compliance. Pt states he was diagnosed with seizure disorder about 6 months ago and was started on Gabapentin by his PCP 2-3 months ago. He admits to non-compliance with his seizure med especially when he is drinking alcohol. He does not remember his last known seizure episode prior to this hospital admission. -Keppra 500 mg BID -Seizure precautions/aspiration precautions -Per neuro, cont Keppra 500 mg BID IVPB, Gabapentin 600 mg TID (Per neuro, this is a very weak seizure medication) -Per swallow eval, OK to start soft diet -telemetry monitoring -EEG results pending #Positive blood culture; seen only in 1 bottle, Gram + cocci in clusters -repeat BCx ordered -Pt w/o leukocytosis and with one febrile episode yesterday AM, but has been afebrile ever since. -Hold on IV abx for now #Alcohol Withdrawal; no signs of withdrawal at this time. -c/w librium protocol -monitor CIWA -banana bag; Thiamine 200 mg QD, Folate 1 mg QD -monitor electrolytes #Hypokalemia; today K+ 2.8 -KCl 40 PO, KCl 10 mEq x3 bags given -recheck BMP today -replete PRN #HTN Cont home meds: Amlodipine 10 QD, Lopressor 50 BID #HLD Cont home med: Atorvastatin 20 HS, Asp 81 #Ppx -Zantac 150 PO QD -Lovenox 40 #NIDDM -ISS -BGMS ACHS #F/E/N -no IVf needed -monitor electrolytes -soft diet dispo -monitor in med-surg Visit type - Emergency Visit Emergency Visit: Yes ED Registration Date: 11/18/18 Care time: The patient presented to the Emergency Department on the above date and was hospitalized for further evaluation of their emergent condition. - New Patient This patient is new to me today: No - Critical Care Critical Care patient: No
[2018-11-19 19:19] LABS: ANION GAP 10 MMOL/L (8-16); BLOOD UREA NITROGEN 13 mg/dL (7-18); CALCIUM 7.8 mg/dL (8.5-10.1); CHLORIDE 107 mmol/L (98-107); CO2 22 mmol/L (21-32); GLUCOSE,RANDOM 168 mg/dL (74-106); POTASSIUM 3.6 mmol/L (3.5-5.1); SODIUM 138 mmol/L (136-145)
[2018-11-19] MEDS: ATORVASTATIN CA 20 MG TABLET (FP) PO SCH (21:09)
[2018-11-19 21:29] VITALS: BP 123/79; PULSE 90; TEMP 98.3
[2018-11-19] MEDS: chlordiazePOXIDE 5 MG CAPSULE PO SCH (22:25)
[2018-11-19] MEDS ORDERED: chlordiazePOXIDE 5 MG CAPSULE PO SCH (23:00)
[2018-11-20] MEDS: chlordiazePOXIDE 5 MG CAPSULE PO SCH (05:32)
[2018-11-20] MEDS: GABAPENTIN 300 MG CAPSULE (FP) PO SCH (05:32)
[2018-11-20] MEDS: INSULIN SLIDING SCALE (NOVOLOG) 1 VIAL SQ SCH (06:29)
--- NOTE | 2018-11-20 09:44 | DS ---
Physical Exam: SUBJECTIVE: Patient seen and examined at bedside. Per nurse, pt seen trying to leave the building. Pt offer no complaints, but wants to go home. OBJECTIVE: Vital Signs Period Temp Pulse Resp BP Sys/Torrez Pulse Ox Last 24 Hr 98.1 F-98.8 F 90-109 16-20 122-132/75-79 96 PHYSICAL EXAM GENERAL: Awake and alert. Responds to commands. Resting comfortably. HEENT: AT/NC. EOMI. FIDEL. Facial symmetry noted. No droop. Slightly slurred speech. NECK:no JVD, no lymphadenopathy LUNGS: CTA B/L. No wheezes heard. HEART: RRR. Normal S1, S2. ABDOMEN: Obese. Soft, NT/ND. +BS in all 4Qs. MUSCULOSKELETAL: No deformities. EXTREMITIES: warm; well-perfused,no clubbing.cyanosis or edema PSYCHIATRIC: Cooperative. Good eye contact. Appropriate mood and affect. SKIN: Warm, dry, normal turgor, no rashes or lesions noted, normal capillary refill. LABS Laboratory Results - last 24 hr 11/19/18 11/19/18 11/19/18 08:50 08:50 11:16 Sodium 137 Potassium 2.8 L* Chloride 102 Carbon Dioxide 24 Anion Gap 11 BUN 10 Creatinine 1.0 Creat Clearance w eGFR > 60 POC Glucometer 156 Random Glucose 235 H Hemoglobin A1c % 8.0 H Calcium 8.1 L Magnesium 1.5 L 11/19/18 11/19/18 11/19/18 16:35 18:10 22:06 Sodium 138 Potassium 3.6 Chloride 107 Carbon Dioxide 22 Anion Gap 10 BUN 13 Creatinine 1.0 Creat Clearance w eGFR > 60 POC Glucometer 176 175 Random Glucose 168 H Hemoglobin A1c % Calcium 7.8 L Magnesium 11/20/18 05:55 Sodium Potassium Chloride Carbon Dioxide Anion Gap BUN Creatinine Creat Clearance w eGFR POC Glucometer 167 Random Glucose Hemoglobin A1c % Calcium Magnesium HOSPITAL COURSE: Date of Admission:11/18/18 IMAGING: * Head CT: No acute IC pathology * CXR: No acute chest process. 53 y/o male with PMH of HTN HLD DM alcohol abuse was brought in from [facility] after having a witnessed seizure and subsequently had 2 more witnessed seizures while being in the ED. In the ED pt, was given 2 doses of Ativan [address] and CXR were both neg. Neuro was contacted and pt was subsequently started on Keppra in addition to pt's home med of Gabapentin. Due to pt's hx of alcohol abuse, he was started on Librium protocol and admitted to tele for further monitoring. Upon further neurological eval, pt underwent EEG, results pending. Blood culture was done that showed +staph coag pos in 1 bottle. Before workup and treatment could be completed pt left AMA despite risks and benefits of treatment explained. He was advised to come back to the ED if he has any medical emergencies in the future. Date of Discharge: 11/20/18 Minutes to complete discharge: 36 Discharge Summary Reason For Visit: SEIZURE DISORDER Current Active Problems Seizure (Acute) Condition: Guarded - Instructions Disposition: AGAINST MEDICAL ADVICE - Home Medications Comprehensive Discharge Medication List: Ambulatory Orders Aspirin [ASA -] 81 mg PO DAILY 05/22/18 Amlodipine Besylate [Norvasc -] 10 mg PO DAILY #30 tablet 09/30/18 Atenolol [Tenormin -] 100 mg PO DAILY #30 tablet 09/30/18 Atorvastatin Ca [Lipitor] 20 mg PO DAILY 11/17/18 Folic Acid - 1 mg PO DAILY 11/17/18 Gabapentin 600 mg PO TID 11/17/18 Metoprolol Tartrate [Lopressor -] 50 mg PO BID 11/17/18 Naltrexone HCl 50 mg PO DAILY 11/17/18 Ranitidine [Zantac -] 150 mg PO DAILY 11/17/18 Thiamine Mononitrate [Vitamin B-1] 100 mg PO DAILY 11/17/18 Thiamine Mononitrate [Vitamin B-1] 100 mg PO DAILY 11/17/18 metFORMIN HCL [Glucophage -] 1,000 mg PO BID@0700,1630 11/17/18 This patient is new to me today: No Emergency Visit: Yes ED Registration Date: 11/18/18 Care time: The patient presented to the Emergency Department on the above date and was hospitalized for further evaluation of their emergent condition. Critical Care patient: No - Discharge Referral Referred to [facility] Med [facility].C.: No
--- NOTE | 2018-11-20 15:40 | HOSP ---
Subjective - Review of Symptoms Events since last encounter: patient left AMA before my evaluation Physical Examination Vital Signs: Vital Signs Temperature 98.3 F 11/19/18 21:27 Pulse Rate 90 11/19/18 21:27 Respiratory Rate 18 11/19/18 21:27 Blood Pressure 123/79 11/19/18 21:27 O2 Sat by Pulse Oximetry (%) 96 11/20/18 09:00 Labs: CBC, BMP 11/19/18 08:50 11/19/18 18:10
[2018-11-20] MEDS ORDERED: chlordiazePOXIDE 5 MG CAPSULE PO SCH ×2 (23:00)
== END 2018-11-20 10:03 | disposition left against medical advice (07) | DRG 770 ==
LOC: JER 16:47 → JERBED 19:45 → J4W 23:13 → OBSVTOIN 11-18 10:09 → J8W 11-18 16:47
PROVIDERS: ADMIT Internal Medicine; ATTEND Internal Medicine
DX: F10.239 Alcohol dependence with withdrawal, unspecified (principal); R56.9 Unspecified convulsions; E83.39 Other disorders of phosphorus metabolism; F32.0 Major depressive disorder, single episode, mild; S01.512A Laceration without foreign body of oral cavity, initial encounter; S09.90XA Unspecified injury of head, initial encounter; W01.0XXA Fall on same level from slipping, tripping and stumbling without subsequent striking against object, initial encounter; Y93.89 Activity, other specified; Y92.89 Other specified places as the place of occurrence of the external cause; Y99.8 Other external cause status; K21.9 Gastro-esophageal reflux disease without esophagitis; E66.9 Obesity, unspecified; F17.210 Nicotine dependence, cigarettes, uncomplicated; E87.6 Hypokalemia; Z68.33 Body mass index [BMI] 33.0-33.9, adult; I10 Essential (primary) hypertension; E11.9 Type 2 diabetes mellitus without complications; E78.5 Hyperlipidemia, unspecified; Z79.84 Long term (current) use of oral hypoglycemic drugs; I25.2 Old myocardial infarction; Z91.14 Patient's other noncompliance with medication regimen
CPT/HCPCS: 36415; 70450-TC; 71045-TC-FY; 80048; 80053; 80307; 81003; 81015; 82962; 83036; 83605; 83735; 84100; 85025; 85027; 85610; 87040; 87186; 93005; 93010; 95816; 99283-25; G0378; J7030

== ENCOUNTER 2018-11-21 02:05 | Emergency (ER) | payer OTHER ==
[2018-11-21 02:46] VITALS: TEMP 98.1; BMI 34.4
--- NOTE | 2018-11-21 04:30 | PDOC ---
History of Present Illness - General Chief Complaint: Pain, Acute Stated Complaint: ABD PAIN History Source: Patient Exam Limitations: No Limitations - History of Present Illness Initial Comments: 11/21/18 06:56 53 yo M with a hx of HTN, HLD, ETOH abuse, and DM presents to the emergency department with lower abdominal pain after drinking. The patient was recently discharged on 11/20/2018 for seizure possibly secondary to alcohol withdrawal. Per the patient, he began drinking that afternoon with 1 pint of vodka and a few 12 ox beers. The patient states he normally gets lower suprapubic pain when he drinks. Described as cramping, 8/10, without radiation, and no aggravating or relieving factors. Denies the following: fever, chills, nausea, vomiting, chest pain, SOB, visual changes, dysuria, hematuria, diarrhea, and leg pain/ swelling. Past History - Past Medical History Allergies/Adverse Reactions: Allergies Allergy/AdvReac Type Severity Reaction Status Date / Time RASHAD Inhibitors Allergy Severe Swelling Verified 11/21/18 02:38 lisinopril Allergy Severe Swelling Verified 11/21/18 02:38 Home Medications: Ambulatory Orders Aspirin [ASA -] 81 mg PO DAILY 05/22/18 Amlodipine Besylate [Norvasc -] 10 mg PO DAILY #30 tablet 09/30/18 Atenolol [Tenormin -] 100 mg PO DAILY #30 tablet 09/30/18 Atorvastatin Ca [Lipitor] 20 mg PO DAILY 11/17/18 Folic Acid - 1 mg PO DAILY 11/17/18 Gabapentin 600 mg PO TID 11/17/18 Metoprolol Tartrate [Lopressor -] 50 mg PO BID 11/17/18 Naltrexone HCl 50 mg PO DAILY 11/17/18 Ranitidine [Zantac -] 150 mg PO DAILY 11/17/18 Thiamine Mononitrate [Vitamin B-1] 100 mg PO DAILY 11/17/18 Thiamine Mononitrate [Vitamin B-1] 100 mg PO DAILY 11/17/18 metFORMIN HCL [Glucophage -] 1,000 mg PO BID@0700,1630 11/17/18 Anemia: No Asthma: No Cancer: No Cardiac Disorders: Yes (mi in 2013) CVA: No COPD: No CHF: No Dementia: No Diabetes: Yes (Type II non compliance) GI Disorders: No Disorders: No HTN: Yes (non compliant with meds.) Hypercholesterolemia: Yes (Gemfibra) Kidney Stones: No Liver Disease: No Psychiatric Problems: Yes (etoh/) Seizures: No Thyroid Disease: No - Surgical History Abdominal Surgery: No Appendectomy: No Cardiac Surgery: No Cholecystectomy: No Lung Surgery: No Neurologic Surgery: No Orthopedic Surgery: No - Reproductive History Testicular Surgery: No - Suicide/Smoking/Psychosocial Hx Smoking History: Never smoked Have you smoked in the past 12 months: No Number of Cigarettes Smoked Daily: 1 If you are a former smoker, when did you quit?: at age 19 Cigars Per Day: 1 Information on smoking cessation initiated: No 'Breaking Loose' booklet given: 05/22/18 Hx Alcohol Use: No Drug/Substance Use Hx: No Substance Use Type: Alcohol Hx Substance Use Treatment: Yes ([facility] 09/27/18 to 10/01/18) Review of Systems - Review of Systems Able to Perform ROS?: Yes Is the patient limited Citizen [place] proficient: No Constitutional: No: Chills, Diaphoresis, Fever, Weakness HEENTM: No: Eye Pain, Recent change in vision, Ear Pain, Nose Pain, Throat Pain , Mouth Pain Respiratory: No: Cough, Shortness of Breath, SOB with Exertion, Hemoptysis Cardiac (ROS): No: Chest Pain, Lightheadedness, Palpitations, Syncope, Chest Tightness ABD/GI: Yes: Abdominal cramping. No: Constipated, Diarrhea, Nausea, Rectal Bleeding, Vomiting, Tarry Stools : No: Burning, Dysuria, Hematuria Musculoskeletal: No: Back Pain, Joint Pain, Neck Pain Integumentary: No: Bruising, Erythema, Rash Neurological: No: Headache, Numbness, Tingling, Tremors, Ataxia, Dizziness Psychiatric: No: Change in Appetite Endocrine: No: Unexplained Weight Gain Hematologic/Lymphatic: No: Anemia *Physical Exam - Vital Signs Last Vital Signs Temp Pulse Resp BP Pulse Ox 98.1 F 97 H 20 133/70 98 11/21/18 02:10 11/21/18 02:10 11/21/18 02:10 11/21/18 02:10 11/21/18 02:10 - Physical Exam General Appearance: Yes: Nourished, Appropriately Dressed, Intoxicated. No: Apparent Distress HEENT: positive: EOMI, FIDEL, Normal Voice, Symmetrical, Pharynx Normal, Hearing Grossly Normal. negative: Pale Conjunctivae, Scleral Icterus (R), Scleral Icterus (L), Muffled/Hoarse voice, Pharyngeal Erythema, Tonsillar Exudate, Tonsillar Erythema, Nasal Congestion, Rhinorrhea, Sinus Tenderness, Excessive drooling Neck: positive: Trachea midline, Supple. negative: Tender, Lymphadenopathy (R) , Lymphadenopathy (L), Tender lateral, Tender midline Respiratory/Chest: positive: Lungs Clear, Normal Breath Sounds. negative: Chest Tender, Respiratory Distress, Accessory Muscle Use, Crackles, Rales, Rhonchi, Stridor, Wheezing, Hyperresonant Cardiovascular: positive: Regular Rhythm, Regular Rate, S1, S2. negative: Systolic Murmur Gastrointestinal/Abdominal: positive: Normal Bowel Sounds, Tender (suprapubic region), Flat, Soft. negative: Rebound, Tenderness Lymphatic: negative: Adenopathy Musculoskeletal: positive: Normal Inspection. negative: CVA Tenderness, Vertebral Tenderness Extremity: positive: Normal Capillary Refill, Normal Inspection, Normal Range of Motion. negative: Tender Integumentary: positive: Normal Color, Dry, Warm Neurologic: positive: blade balancer II-XII NML intact, Alert, Normal Mood/Affect Moderate Sedation - Procedure Monitoring Vital Signs: Procedure Monitoring Vital Signs Temperature 98.1 F 11/21/18 02:10 Pulse Rate 97 H 11/21/18 02:10 Respiratory Rate 20 11/21/18 02:10 Blood Pressure 133/70 11/21/18 02:10 O2 Sat by Pulse Oximetry (%) 98 11/21/18 02:10 ED Treatment Course - LABORATORY CBC & Chemistry Diagram: 11/21/18 06:26 11/21/18 06:26 Medical Decision Making - Medical Decision Making 53 yo M with a hx of HTN, HLD, ETOH abuse, and DM presents to the emergency department with lower abdominal pain after drinking. Initial vitals: Initial Vital Signs Temp Pulse Resp BP Pulse Ox 98.1 F 97 H 20 133/70 98 11/21/18 02:10 11/21/18 02:10 11/21/18 02:10 11/21/18 02:10 11/21/18 02:10 Work up: ddx: cystitis vs UTI vs colitis vs msk strain Patient was signed out to Dr. Zavala *DC/Admit/Observation/Transfer Diagnosis at time of Disposition: Alcohol dependence Qualifiers: Substance use status: unspecified alcohol-induced disorder Qualified Code(s): F10.29 - Alcohol dependence with unspecified alcohol-induced disorder - Referrals - Patient Instructions - Post Discharge Activity
--- NOTE | 2018-11-21 04:38 | PDOC ---
Attending Attestation - Resident Resident Name: Larry Griffin - ED Attending Attestation I have performed the following: I have examined & evaluated the patient, The case was reviewed & discussed with the resident, I agree w/resident's findings & plan - HPI HPI: 11/21/18 06:30 53-year-old male status post recent admission in this facility for possible alcohol withdrawal seizures now with diffuse abdominal pain. Patient is a poor historian, there is a noted history of alcohol abuse. He describes the pain as uncomfortable and involving the entire abdomen. - Physicial Exam PE: 11/21/18 06:30 Agree with resident's exam - Medical Decision Making 11/21/18 06:31 53-year-old male with a history of abdominal pain and alcohol abuse Labs and CT scan pending Case signed out with oncoming shift for further evaluation and disposition.
[2018-11-21] MEDS ORDERED: ACETAMINOPHEN 1000 MG/100 ML VIAL (NON FORMULARY) IVPB ONE (05:58)
[2018-11-21] MEDS ORDERED: ACETAMINOPHEN INJECTION 100 ML IVPB ONE (06:27)
[2018-11-21 07:15] LABS: BASO % 0.5 % (0-2.0); EOS % 0.9 % (0-4.5); HEMATOCRIT 32.2 % (35.4-49); LYMPH % 20.8 % (8-40); MCH 29.4 pg (25.7-33.7); MCHC 34.3 g/dl (32.0-35.9); MEAN PLT VOLUME 7.8 fl (7.5-11.1); MONO % 9.7 % (3.8-10.2); NEUT % 68.1 % (42.8-82.8); PLATELET COUNT 145 K/MM3 (134-434); RBC 3.74 M/mm3 (4.00-5.60); RDW 16.1 % (11.9-15.9); WHITE BLOOD COUNT 7.6 K/mm3 (4.0-10.0)
[2018-11-21 08:39] LABS: ALBUMIN 3.3 g/dl (3.4-5.0); ALK PHOS 78 U/L (45-117); ANION GAP 10 MMOL/L (8-16); BILIRUBIN,TOTAL 0.9 mg/dL (0.2-1); BLOOD UREA NITROGEN 22 mg/dL (7-18); CALCIUM 8.4 mg/dL (8.5-10.1); CHLORIDE 103 mmol/L (98-107); CO2 24 mmol/L (21-32); CREATININE 0.8 mg/dL (0.55-1.3); GLUCOSE,RANDOM 135 mg/dL (74-106); POTASSIUM 3.2 mmol/L (3.5-5.1); SGOT/AST 213 U/L (15-37); SGPT/ALT 73 U/L (13-61); SODIUM 137 mmol/L (136-145); TOT PROT 7.3 g/dl (6.4-8.2)
--- NOTE | 2018-11-21 08:53 | PDOC ---
*Physical Exam - Vital Signs Last Vital Signs Temp Pulse Resp BP Pulse Ox 98.1 F 97 H 20 133/70 98 11/21/18 02:10 11/21/18 02:10 11/21/18 02:10 11/21/18 02:10 11/21/18 02:10 ED Treatment Course - LABORATORY CBC & Chemistry Diagram: 11/21/18 06:26 11/21/18 06:26 - ADDITIONAL ORDERS Additional order review: Laboratory Results 11/21/18 06:26 Sodium 137 Potassium 3.2 L Chloride 103 Carbon Dioxide 24 Anion Gap 10 BUN 22 H Creatinine 0.8 Creat Clearance w eGFR > 60 Random Glucose 135 H Calcium 8.4 L Total Bilirubin 0.9 AST 213 H ALT 73 H Alkaline Phosphatase 78 Creatine Kinase 74265 H Troponin I 0.05 Total Protein 7.3 Albumin 3.3 L Alcohol, Quantitative < 3.0 11/21/18 06:26 RBC 3.74 L MCV 86.0 MCHC 34.3 RDW 16.1 H MPV 7.8 Neutrophils % 68.1 Lymphocytes % 20.8 Monocytes % 9.7 D Eosinophils % 0.9 D Basophils % 0.5 - Medications Given in the ED: ED Medications Discontinued Medications Generic Name Dose Route Start Last Admin Trade Name Freq PRN Reason Stop Dose Admin Acetaminophen 1,000 mg 11/21/18 05:58 11/21/18 06:31 Ofirmev Injection - IVPB 11/21/18 05:59 Not Given ONCE ONE Medical Decision Making - Medical Decision Making 11/21/18 08:[address] Griffin. Patient is a 53 yo male w/ pmh of HTN, HLD, ETOH abuse, DM who presents for evaluation of lower abdominal pain after drinking 1 pint vodka and several 12 oz beers. Currently pending CT abdomen for further evaluation. 11/21/18 10:56 Discussed patient with admitting doctor from [facility] [Irene Gallo )] who ok'ed patient for return for evaluation and rehab/detox following medical clearance. 11/21/18 11:40 Patient CK / CK-MB noted to be elevated as below. 11/21/18 12:03 CXR suspicious for right parahilar airspace opacitiy concerning for pneumonia vs. cancerious process. CT significant for enlarged left psoas muscle concerning for hematoma vs. neoplasm; inflammatory process tracking to left colon/kidney. Hepatomegaly with fatty liver and enhancing mass suspicious for hemangioma. Also large groundglass opacity right base and left lung concerning for neoplasm. Discussed with patient who verbalized understanding of his diagnosis and the possibility that this may be cancer. Suggested admission for further evaluation. Patient alert and oriented at this time, refuses admission and wishes to follow-up outpatient with [facility]. [facility] and discussed with "Kira" and will transfer results. Patient scheduled for evaluation tomorrow at 0945 am. Signing out patient AMA per patient's wishes. ABX sent for r/o pneumonia to patient's pharmacy. Laboratory Results - last 24 hr 11/21/18 11/21/18 11/21/18 06:26 06:26 10:57 WBC 7.6 RBC 3.74 L Hgb 11.0 L Hct 32.2 L MCV 86.0 MCH 29.4 MCHC 34.3 RDW 16.1 H Plt Count 145 MPV 7.8 Absolute Neuts (auto) 5.2 Neutrophils % 68.1 Lymphocytes % 20.8 Monocytes % 9.7 D Eosinophils % 0.9 D Basophils % 0.5 Nucleated RBC % 0 Sodium 137 Potassium 3.2 L Chloride 103 Carbon Dioxide 24 Anion Gap 10 BUN 22 H Creatinine 0.8 Creat Clearance w eGFR > 60 Random Glucose 135 H Calcium 8.4 L Total Bilirubin 0.9 AST 213 H ALT 73 H Alkaline Phosphatase 78 Creatine Kinase 58507 H Creatine Kinase Index 0.0 CK-MB (CK-2) 3.7 H Troponin I 0.05 Total Protein 7.3 Albumin 3.3 L Urine Color Yellow Urine Appearance Clear Urine pH 6.0 Ur Specific [place] 1.049 H Urine Protein 1+ H Urine Glucose (UA) Negative Urine Ketones Negative Urine Blood 1+ H Urine Nitrite Negative Urine Bilirubin Negative Urine Urobilinogen Negative Ur Leukocyte Esterase Negative Urine WBC (Auto) 1 Urine RBC (Auto) 4 Ur Epithelial Cells Rare Urine Mucus Rare Alcohol, Quantitative < 3.0 *DC/Admit/Observation/Transfer Diagnosis at time of Disposition: Hematoma Alcohol dependence Qualifiers: Substance use status: unspecified alcohol-induced disorder Qualified Code(s): F10.29 - Alcohol dependence with unspecified alcohol-induced disorder Pneumonia Qualifiers: Pneumonia type: due to unspecified organism Laterality: unspecified laterality Lung location: unspecified part of lung Qualified Code(s): J18.9 - Pneumonia, unspecified organism - Discharge Dispostion Disposition: AGAINST MEDICAL ADVICE - Prescriptions Prescriptions: Doxycycline Hyclate 100 mg PO BID #14 tablet - Referrals - Patient Instructions Printed Discharge Instructions: DI for Pneumonia -- Adult, DI for Hematoma ( [place]ise) Additional Instructions: You were evaluated today in the ER for your back pain and found to have findings concerning for pneumonia as well as lung cancer and a back mass. We discussed your results with you and suggested admission however you elected to sign out of the hospital against medical advice. We contacted [facility] per your request and discussed your case with them. They will evaluate you tomorrow at their facility at 9:45am. Please follow-up at this appointment. Return to ER immediately if any difficulty making appointment, fever, chills, or other concerning findings. - Post Discharge Activity
[2018-11-21 10:45] VITALS: BP 108/56; PULSE 101
[2018-11-21 11:31] LABS: URINE APPEARANCE CLEAR; URINE BILIRUBIN NEGATIVE (<2.0 mg/dL); URINE COLOR YELLOW; URINE GLUCOSE (UA) NEGATIVE (NEGATIVE); URINE KETONE NEGATIVE (NEGATIVE); URINE LEUK ESTERASE NEGATIVE (NEGATIVE); URINE NITRITE NEGATIVE (NEGATIVE); URINE PROTEIN 1+ (NEGATIVE); URINE UROBILINOGEN NEGATIVE mg/dL (0.2-1.0)
[2018-11-21 11:36] LABS: EPI CELLS RARE /HPF (FEW); URINE MUCUS RARE
--- NOTE | 2018-11-21 16:42 | EKG ---
Test Reason : Blood Pressure : / mmHG Vent. Rate : 107 BPM Atrial Rate : 107 BPM P-R Int : 160 ms QRS Dur : 084 ms QT Int : 334 ms P-R-T Axes : 048 032 140 degrees QTc Int : 445 ms SINUS TACHYCARDIA T WAVE ABNORMALITY, CONSIDER INFEROLATERAL ISCHEMIA ABNORMAL ECG WHEN COMPARED WITH ECG OF 17-NOV-2018 18:14, T WAVE INVERSION LESS EVIDENT IN INFERIOR LEADS Confirmed by SAM BISHOP, LISANDRO ([id number]) on 11/21/2018 4:42:44 PM Referred By: Confirmed By:LISANDRO VARGAS MD
== END 2018-11-21 12:15 | disposition left against medical advice (07) ==
LOC: JER 02:05
DX: F10.29 Alcohol dependence with unspecified alcohol-induced disorder (principal); I25.10 Atherosclerotic heart disease of native coronary artery without angina pectoris; I10 Essential (primary) hypertension; I25.2 Old myocardial infarction; E11.9 Type 2 diabetes mellitus without complications; Z79.4 Long term (current) use of insulin; E78.00 Pure hypercholesterolemia, unspecified; Z91.14 Patient's other noncompliance with medication regimen
CPT/HCPCS: 36415; 71045-TC-FY; 74177-TC; 80053; 80307; 81003; 81015; 82550; 82553; 84484; 85025; 93005; 93010; 99281-25

== ENCOUNTER 2018-12-08 08:19 | Inpatient (IN) | payer OTHER ==
[2018-12-08 08:37] VITALS: BMI 33.4
--- NOTE | 2018-12-08 10:18 | HP ---
CIWA Score Nausea/Vomitin-Mild Nausea/No Vomiting (pt is intoxicated- left [facility] after overnight stay and started drinking again) Muscle Tremors: 2 Anxiety: 1-Mildly Anxious Agitation: 1-Slight > Activity Paroxysmal Sweats: 1-Minimal Palms Moist Orientation: 0-Oriented Tacttile Disturbances: 0-None Auditory Disturbances: 0-None Visual Disturbances: 0-None Headache: 0-None Present CIWA-Ar Total Score: 6 - Admission Criteria OASAS Guidelines: Admission for Medically Managed Detox: Requires at least one of the followin. CIWA greater than 12 2. Seizures within the past 24 hours 3. Delirium tremens within the past 24 hours 4. Hallucinations within the past 24 hours 5. Acute intervention needed for co occurring medical disorder 6. Acute intervention needed for co occurring psychiatric disorder 7. Severe withdrawal that cannot be handled at a lower level of care (continued vomiting, continued diarrhea, abnormal vital signs) requiring intravenous medication and/or fluids 8. Patient presents the following: Seizures, delirium tremens or hallucinations in the past 12 hours Admission Criteria Met: Admission criteria met Admission [facility] Chief Complaint: here alcohol detox- 53 yo with long h/o alcohol use and multiple admissions here- h/o DM, HTN. States he was at [facility] last augustin, as soon as he was discharged from ER this morning, he went to liquor store and 2 bottles of beer. Pt was last here 11/17/18 in detox- was transferred to [facility] for eval of seizure- pt had 2 more episodes there. Seen by neurology- who thought his seizures were not due to alcohol withdrawal- headt CT- negative, suggested adding Keppra to neurontin- which he was not taking as an outpt. Pt was/is a poor historian re past history of seizures. Pt left AMA from [facility] on 11/20 alcohol- beer and vodka- 1 pint DUR-no meds, Utox-BZO ( from [place]) Allergies/Adverse Reactions: Allergies Allergy/AdvReac Type Severity Reaction Status Date / Time RASHAD Inhibitors Allergy Severe Swelling Verified 12/08/18 10:02 lisinopril Allergy Severe Swelling Verified 12/08/18 10:02 - Ebola screening Have you traveled outside of the country in the last 21 days: No (N) Have you had contact with anyone from an Ebola affected area: No Have you been sick,other than usual withdrawal symptoms: No Do you have a fever: No Patient History - Patient Medical History Hx Anemia: No Hx Asthma: No Hx Chronic Obstructive Pulmonary Disease (COPD): No Hx Cancer: No Hx Cardiac Disorders: No Hx Congestive Heart Failure: No Hx Hypertension: No Hx Hypercholesterolemia: Yes (Gemfibra) Hx Pacemaker: No HX Cerebrovascular Accident: No Hx Seizures: No Hx Dementia: No Hx Diabetes: Yes Hx Gastrointestinal Disorders: No Hx Liver Disease: No Hx Genitourinary Disorders: No Hx Sexually Transmitted Disorders: No Hx Renal Disease (ESRD): No Hx Thyroid Disease: No Hx Human Immunodeficiency Virus (HIV): No (Negative 2018 in 09/01) Hx Hepatitis C: No Hx Depression: No Hx Suicide Attempt: No Hx Bipolar Disorder: No Hx Schizophrenia: No - Patient Surgical History Past Surgical History: Yes Hx Neurologic Surgery: No Hx Cataract Extraction: No Hx Cardiac Surgery: No Hx Lung Surgery: No Hx Breast Surgery: No Hx Breast Biopsy: No Hx Abdominal Surgery: No Hx Appendectomy: No Hx Cholecystectomy: No Hx Genitourinary Surgery: Yes (left kidney stone removed in 2015) Hx Section: No Hx Orthopedic Surgery: No Other Surgical History: left kidney stone removed 11/2015 Anesthesia Reaction: No - PPD History Documented Results: Positive w/o proof Results: cxray(-)04/29/18 - Reproductive History Patient : No - Smoking Cessation Smoking history: Never smoked Have you smoked in the past 12 months: No Aproximately how many cigarettes per day: 1 If you are a former smoker, when did you quit?: at age 19 Cigars Per Day: 1 Hx Chewing Tobacco Use: No - Substance & Tx. History Hx Alcohol Use: Yes Hx Substance Use: No - Substances Abused etoh Route: Oral Frequency: Daily Amount used: 3 Pt. beer Age of first use: 19 Date of Last Use: 12/08/18 Family Disease History - Family Disease History Family Disease History: Heart Disease: Mother (HTN), Other: Father (Alcohol), Mother, Brother (Alcohol) Admission Physical Exam BHS - Vital Signs Vital Signs: Vital Signs - 24 hr 12/08/18 08:35 Temperature 98.3 F Pulse Rate 98 H Respiratory 18 Rate Blood Pressure 137/93 - Physical General Appearance: Yes: Disheveled, Intoxicated, Obese HEENTM: Yes: Normal ENT Inspection, Normal Voice, FIDEL Respiratory: Yes: Within Normal Limits Neck: Yes: Within Normal Limits Breast: Yes: Within Normal Limits Cardiology: Yes: Within Normal Limits, Regular Rhythm Abdominal: Yes: Within Normal Limits, Protuberent Back: Yes: Within Normal Limits Musculoskeletal: Yes: Within Normal Limits (pt is mildly intoxicated) Integumentary: Yes: Within Normal Limits Lymphatic: Yes: Within Normal Limits - Diagnostic (1) Alcohol dependence with uncomplicated withdrawal Current Visit: No Status: Acute (2) Alcohol intoxication Current Visit: No Status: Acute (3) DM2 (diabetes mellitus, type 2) Current Visit: No Status: Acute (4) Seizure disorder Current Visit: Yes Status: Chronic (5) Hypertension Current Visit: No Status: Chronic Qualifiers: Hypertension type: essential hypertension Qualified Code(s): I10 - Essential (primary) hypertension BHS Breath Alcohol Content Breath Alcohol Content: 0.223 Urine Drug Screen - Results Drug Screen Negative: No Urine Drug Screen Results: BZO-Benzodiazepines Inpatient Rehab Admission - Rehab Decision to Admit Inpatient rehab admission?: No
[2018-12-08] MEDS ORDERED: MAGNESIUM HYDROX 2400MG/30ML ORAL SUSPENSION 30 ML CUP PO PRN (10:44)
[2018-12-08] MEDS ORDERED: P-EPHED 60MG/TRIPROLIDI 2.5MG TABLET PO PRN (10:44)
[2018-12-08] MEDS ORDERED: MAGNESIUM CITRATE 300 ML BOTTLE PO PRN (10:44)
[2018-12-08] MEDS ORDERED: MENTHOL/PHENOL 1 EACH UD MM PRN (10:44)
[2018-12-08] MEDS ORDERED: IBUPROFEN 400 MG TABLET (FP) PO PRN (10:44)
[2018-12-08] MEDS ORDERED: MAG HYDROX/AL HYDROX/SIMETH 30 ML UNIT-DOSE CUP PO PRN (10:44)
[2018-12-08] MEDS ORDERED: guaiFENesin/D-METHORPHAN HB 10 ML UNIT-DOSE CUPS PO PRN (10:44)
[2018-12-08] MEDS ORDERED: hydrOXYzine PAMOATE 25 MG CAPSULE (FP) PO PRN (10:44)
[2018-12-08] MEDS ORDERED: ACETAMINOPHEN 325 MG TABLET (FP) PO PRN (10:44)
[2018-12-08] MEDS ORDERED: LOPERAMIDE HCL 2 MG CAPSULE PO PRN (10:44)
[2018-12-08] MEDS ORDERED: chlordiazePOXIDE HCL 25 MG CAPSULE PO PRN (10:45)
[2018-12-08] MEDS: GABAPENTIN 300 MG CAPSULE (FP) PO SCH ×2 (11:04→22:19)
[2018-12-08] MEDS: levETIRAcetam 500 MG TABLET (FP) PO SCH ×2 (11:04→22:19)
[2018-12-08 15:09] LABS: URINE APPEARANCE CLEAR; URINE BILIRUBIN NEGATIVE (<2.0 mg/dL); URINE COLOR LTYELLOW; URINE GLUCOSE (UA) NEGATIVE (NEGATIVE); URINE KETONE NEGATIVE (NEGATIVE); URINE LEUK ESTERASE 1+ (NEGATIVE); URINE NITRITE NEGATIVE (NEGATIVE); URINE PROTEIN 2+ (NEGATIVE); URINE UROBILINOGEN NEGATIVE mg/dL (0.2-1.0)
[2018-12-08 15:11] LABS: EPI CELLS RARE /HPF (FEW); URINE MUCUS RARE
[2018-12-08] MEDS: chlordiazePOXIDE HCL 25 MG CAPSULE PO SCH ×2 (18:03→22:19)
[2018-12-08] MEDS: metFORMIN HCL 500 MG TABLET (FP) PO SCH (18:03)
[2018-12-08] MEDS ORDERED: MELATONIN 5 MG TABLETS PO PRN (22:00)
[2018-12-08] MEDS: THIAMINE HCL 100 MG TABLET (FP) PO SCH (22:19)
[2018-12-08] MEDS: METOPROLOL TARTRATE 50 MG TABLET (FP) PO SCH (22:19)
[2018-12-09] MEDS: chlordiazePOXIDE HCL 25 MG CAPSULE PO SCH ×4 (05:24→22:41)
[2018-12-09] MEDS: metFORMIN HCL 500 MG TABLET (FP) PO SCH ×2 (06:56→17:42)
[2018-12-09 10:07] LABS: HEMATOCRIT 35.5 % (35.4-49); HEMOGLOBIN 12.1 GM/dL (11.7-16.9); MCH 29.5 pg (25.7-33.7); MCHC 34.2 g/dl (32.0-35.9); MEAN CELL VOLUME 86.5 fl (80-96); MEAN PLT VOLUME 6.8 fl (7.5-11.1); PLATELET COUNT 218 K/MM3 (134-434); RDW 16.8 % (11.9-15.9); WHITE BLOOD COUNT 3.3 K/mm3 (4.0-10.0)
[2018-12-09 10:38] LABS: ALBUMIN 3.3 g/dl (3.4-5.0); ALK PHOS 132 U/L (45-117); ANION GAP 13 MMOL/L (8-16); BILIRUBIN,TOTAL 0.9 mg/dL (0.2-1); BLOOD UREA NITROGEN 14 mg/dL (7-18); CALCIUM 8.2 mg/dL (8.5-10.1); CHLORIDE 98 mmol/L (98-107); CO2 26 mmol/L (21-32); CREATININE 0.7 mg/dL (0.55-1.3); GLUCOSE,RANDOM 119 mg/dL (74-106); POTASSIUM 3.4 mmol/L (3.5-5.1); SGOT/AST 163 U/L (15-37); SGPT/ALT 71 U/L (13-61); SODIUM 136 mmol/L (136-145); TOT PROT 7.7 g/dl (6.4-8.2)
[2018-12-09] MEDS: ATORVASTATIN CA 40 MG TABLET (FP) PO SCH (10:42)
[2018-12-09] MEDS: METOPROLOL TARTRATE 50 MG TABLET (FP) PO SCH ×2 (10:42→22:46)
[2018-12-09] MEDS: amLODIPine BESYLATE 10 MG TABLET (FP) PO SCH (10:43)
[2018-12-09] MEDS: ASPIRIN 81 MG CHEWABLE TABLETS PO SCH (10:43)
[2018-12-09] MEDS: RANITIDINE HCL 150 MG TABLET (FP) PO SCH (10:43)
[2018-12-09] MEDS: GABAPENTIN 300 MG CAPSULE (FP) PO SCH ×2 (10:43→22:39)
[2018-12-09] MEDS: levETIRAcetam 500 MG TABLET (FP) PO SCH ×2 (10:43→22:40)
[2018-12-09] MEDS: PRENATAL VITAMINS W/ FOLIC ACID TABLET (FP) PO SCH (10:43)
[2018-12-09] MEDS ORDERED: METOPROLOL TARTRATE 50 MG TABLET (FP) PO SCH (15:50)
--- NOTE | 2018-12-09 15:54 | PN ---
S CIWA - CIWA Score Nausea/Vomitin-Mild Nausea/No Vomiting Muscle Tremors: 3 Anxiety: 2 Agitation: 1-Slight > Activity Paroxysmal Sweats: 1-Minimal Palms Moist Orientation: 1-Uncertain about Date Tacttile Disturbances: 0-None Auditory Disturbances: 0-None Visual Disturbances: 0-None Headache: 1-Very Mild CIWA-Ar Total Score: 10 S Progress Note (SOAP) Subjective: tremor sweating low energy abscess left inner buttock tender on palpation skin color no drainage hard to determine the depth of the abscess about 2.5 cm wide irregular border Objective: 12/09/18 15:54 Vital Signs Temperature 98.5 F 12/09/18 13:24 Pulse Rate 86 12/09/18 13:24 Respiratory Rate 18 12/09/18 13:24 Blood Pressure 159/96 12/09/18 13:24 O2 Sat by Pulse Oximetry (%) Laboratory Last Values WBC 3.3 K/mm3 (4.0-10.0) L 12/09/18 07:40 RBC 4.10 M/mm3 (4.00-5.60) 12/09/18 07:40 Hgb 12.1 GM/dL (11.7-16.9) 12/09/18 07:40 Hct 35.5 % (35.4-49) 12/09/18 07:40 MCV 86.5 fl (80-96) 12/09/18 07:40 MCH 29.5 pg (25.7-33.7) 12/09/18 07:40 MCHC 34.2 g/dl (32.0-35.9) 12/09/18 07:40 RDW 16.8 % (11.9-15.9) H 12/09/18 07:40 Plt Count 218 K/MM3 (134-434) D 12/09/18 07:40 MPV 6.8 fl (7.5-11.1) L D 12/09/18 07:40 Sodium 136 mmol/L (136-145) 12/09/18 07:40 Potassium 3.4 mmol/L (3.5-5.1) L 12/09/18 07:40 Chloride 98 mmol/L (98-107) 12/09/18 07:40 Carbon Dioxide 26 mmol/L (21-32) 12/09/18 07:40 Anion Gap 13 MMOL/L (8-16) 12/09/18 07:40 BUN 14 mg/dL (7-18) 12/09/18 07:40 Creatinine 0.7 mg/dL (0.55-1.3) 12/09/18 07:40 Creat Clearance w eGFR > 60 (>60) 12/09/18 07:40 POC Glucometer 143 UNITS (80-120) 12/09/18 05:24 Random Glucose 119 mg/dL (74-106) H 12/09/18 07:40 Calcium 8.2 mg/dL (8.5-10.1) L 12/09/18 07:40 Total Bilirubin 0.9 mg/dL (0.2-1) 12/09/18 07:40 AST 163 U/L (15-37) H 12/09/18 07:40 ALT 71 U/L (13-61) H 12/09/18 07:40 Alkaline Phosphatase 132 U/L (45-117) H 12/09/18 07:40 Total Protein 7.7 g/dl (6.4-8.2) 12/09/18 07:40 Albumin 3.3 g/dl (3.4-5.0) L 12/09/18 07:40 Urine Color Ltyellow 12/08/18 14:12 Urine Appearance Clear 12/08/18 14:12 Urine pH 5.0 (5.0-8.0) 12/08/18 14:12 Ur Specific [place] 1.015 (1.010-1.035) 12/08/18 14:12 Urine Protein 2+ (NEGATIVE) H 12/08/18 14:12 Urine Glucose (UA) Negative (NEGATIVE) 12/08/18 14:12 Urine Ketones Negative (NEGATIVE) 12/08/18 14:12 Urine Blood 1+ (NEGATIVE) H 12/08/18 14:12 Urine Nitrite Negative (NEGATIVE) 12/08/18 14:12 Urine Bilirubin Negative (<2.0 mg/dL) 12/08/18 14:12 Urine Urobilinogen Negative mg/dL (0.2-1.0) 12/08/18 14:12 Ur Leukocyte Esterase 1+ (NEGATIVE) H 12/08/18 14:12 Urine WBC (Auto) 31 /hpf (3-5) 12/08/18 14:12 Urine RBC (Auto) <1 /hpf (0-3) 12/08/18 14:12 Ur Epithelial Cells Rare /HPF (FEW) 12/08/18 14:12 Urine Mucus Rare 12/08/18 14:12 RPR Titer Nonreactive (NONREACTIVE) 12/09/18 07:40 lab noted low K+ repeat ast low Ca++ Assessment: 12/09/18 15:57 withdrawal sx hypertension increase metoprolol to 75 mg bid potassium 40 meq x 2 Plan: continue detox repeat ast repeat K+
[2018-12-09] MEDS: POTASSIUM CHLORIDE ORAL LIQUID 20 MEQ/15 ML PO SCH ×2 (20:08→22:41)
[2018-12-09] MEDS: DOXYCYCLINE HYCLATE 100 MG TABLET PO SCH (20:08)
[2018-12-09] MEDS: THIAMINE HCL 100 MG TABLET (FP) PO SCH (22:40)
[2018-12-10] MEDS: chlordiazePOXIDE HCL 25 MG CAPSULE PO SCH ×2 (05:31→10:17)
[2018-12-10] MEDS: metFORMIN HCL 500 MG TABLET (FP) PO SCH ×2 (06:10→17:45)
[2018-12-10] MEDS: ASPIRIN 81 MG CHEWABLE TABLETS PO SCH (10:15)
[2018-12-10] MEDS: GABAPENTIN 300 MG CAPSULE (FP) PO SCH ×2 (10:16→22:22)
[2018-12-10] MEDS: levETIRAcetam 500 MG TABLET (FP) PO SCH ×2 (10:16→22:23)
[2018-12-10] MEDS: ATORVASTATIN CA 40 MG TABLET (FP) PO SCH (10:16)
[2018-12-10] MEDS: DOXYCYCLINE HYCLATE 100 MG TABLET PO SCH ×2 (10:18→18:10)
[2018-12-10] MEDS: METOPROLOL TARTRATE 50 MG TABLET (FP) PO SCH ×2 (10:18→22:23)
[2018-12-10] MEDS: RANITIDINE HCL 150 MG TABLET (FP) PO SCH (10:18)
[2018-12-10] MEDS: amLODIPine BESYLATE 10 MG TABLET (FP) PO SCH (10:18)
[2018-12-10] MEDS: PRENATAL VITAMINS W/ FOLIC ACID TABLET (FP) PO SCH (10:18)
--- NOTE | 2018-12-10 14:06 | PN ---
S CIWA - CIWA Score Nausea/Vomitin-Mild Nausea/No Vomiting Muscle Tremors: 1-None Visible, but [place] Anxiety: 1-Mildly Anxious Agitation: 1-Slight > Activity Paroxysmal Sweats: 1-Minimal Palms Moist Orientation: 0-Oriented Tacttile Disturbances: 0-None Auditory Disturbances: 0-None Visual Disturbances: 0-None Headache: 1-Very Mild CIWA-Ar Total Score: 6 BHS Progress Note (SOAP) Subjective: tremor sweating low energy Objective: 12/10/18 14:00 Vital Signs Temperature 98.8 F 12/10/18 13:28 Pulse Rate 84 12/10/18 13:28 Respiratory Rate 20 12/10/18 13:28 Blood Pressure 148/95 12/10/18 13:28 O2 Sat by Pulse Oximetry (%) Laboratory Last Values WBC 3.3 K/mm3 (4.0-10.0) L 12/09/18 07:40 RBC 4.10 M/mm3 (4.00-5.60) 12/09/18 07:40 Hgb 12.1 GM/dL (11.7-16.9) 12/09/18 07:40 Hct 35.5 % (35.4-49) 12/09/18 07:40 MCV 86.5 fl (80-96) 12/09/18 07:40 MCH 29.5 pg (25.7-33.7) 12/09/18 07:40 MCHC 34.2 g/dl (32.0-35.9) 12/09/18 07:40 RDW 16.8 % (11.9-15.9) H 12/09/18 07:40 Plt Count 218 K/MM3 (134-434) D 12/09/18 07:40 MPV 6.8 fl (7.5-11.1) L D 12/09/18 07:40 Sodium 136 mmol/L (136-145) 12/09/18 07:40 Potassium 3.4 mmol/L (3.5-5.1) L 12/09/18 07:40 Chloride 98 mmol/L (98-107) 12/09/18 07:40 Carbon Dioxide 26 mmol/L (21-32) 12/09/18 07:40 Anion Gap 13 MMOL/L (8-16) 12/09/18 07:40 BUN 14 mg/dL (7-18) 12/09/18 07:40 Creatinine 0.7 mg/dL (0.55-1.3) 12/09/18 07:40 Creat Clearance w eGFR > 60 (>60) 12/09/18 07:40 POC Glucometer 164 UNITS (80-120) 12/10/18 05:31 Random Glucose 119 mg/dL (74-106) H 12/09/18 07:40 Calcium 8.2 mg/dL (8.5-10.1) L 12/09/18 07:40 Total Bilirubin 0.9 mg/dL (0.2-1) 12/09/18 07:40 AST 163 U/L (15-37) H 12/09/18 07:40 ALT 71 U/L (13-61) H 12/09/18 07:40 Alkaline Phosphatase 132 U/L (45-117) H 12/09/18 07:40 Total Protein 7.7 g/dl (6.4-8.2) 12/09/18 07:40 Albumin 3.3 g/dl (3.4-5.0) L 12/09/18 07:40 Urine Color Ltyellow 12/08/18 14:12 Urine Appearance Clear 12/08/18 14:12 Urine pH 5.0 (5.0-8.0) 12/08/18 14:12 Ur Specific [place] 1.015 (1.010-1.035) 12/08/18 14:12 Urine Protein 2+ (NEGATIVE) H 12/08/18 14:12 Urine Glucose (UA) Negative (NEGATIVE) 12/08/18 14:12 Urine Ketones Negative (NEGATIVE) 12/08/18 14:12 Urine Blood 1+ (NEGATIVE) H 12/08/18 14:12 Urine Nitrite Negative (NEGATIVE) 12/08/18 14:12 Urine Bilirubin Negative (<2.0 mg/dL) 12/08/18 14:12 Urine Urobilinogen Negative mg/dL (0.2-1.0) 12/08/18 14:12 Ur Leukocyte Esterase 1+ (NEGATIVE) H 12/08/18 14:12 Urine WBC (Auto) 31 /hpf (3-5) 12/08/18 14:12 Urine RBC (Auto) <1 /hpf (0-3) 12/08/18 14:12 Ur Epithelial Cells Rare /HPF (FEW) 12/08/18 14:12 Urine Mucus Rare 12/08/18 14:12 RPR Titer Nonreactive (NONREACTIVE) 12/09/18 07:40 lab noted Assessment: 12/10/18 14:03 withdrawal sx chronic abscess formation around anus Plan: continue detox no discharge no bleeding at the present time continue doxycycline encourage the patient return to primary care provider for follow up if continue flare-up for underline cause
[2018-12-10 15:40] LABS: POTASSIUM 3.4 mmol/L (3.5-5.1)
[2018-12-10] MEDS: chlordiazePOXIDE 5 MG CAPSULE PO SCH ×2 (17:45→22:22)
[2018-12-10] MEDS: THIAMINE HCL 100 MG TABLET (FP) PO SCH (22:23)
[2018-12-11] MEDS: chlordiazePOXIDE 5 MG CAPSULE PO SCH ×2 (05:50→10:25)
[2018-12-11] MEDS: metFORMIN HCL 500 MG TABLET (FP) PO SCH ×2 (07:53→16:33)
[2018-12-11] MEDS: DOXYCYCLINE HYCLATE 100 MG TABLET PO SCH ×2 (10:24→18:13)
[2018-12-11] MEDS: ASPIRIN 81 MG CHEWABLE TABLETS PO SCH (10:24)
[2018-12-11] MEDS: METOPROLOL TARTRATE 50 MG TABLET (FP) PO SCH (10:24)
[2018-12-11] MEDS: ATORVASTATIN CA 40 MG TABLET (FP) PO SCH (10:24)
[2018-12-11] MEDS: GABAPENTIN 300 MG CAPSULE (FP) PO SCH ×2 (10:24→21:53)
[2018-12-11] MEDS: RANITIDINE HCL 150 MG TABLET (FP) PO SCH (10:24)
[2018-12-11] MEDS: amLODIPine BESYLATE 10 MG TABLET (FP) PO SCH (10:25)
[2018-12-11] MEDS: levETIRAcetam 500 MG TABLET (FP) PO SCH ×2 (10:25→21:57)
[2018-12-11] MEDS: PRENATAL VITAMINS W/ FOLIC ACID TABLET (FP) PO SCH (10:25)
--- NOTE | 2018-12-11 16:05 | PN ---
S CIWA - CIWA Score Nausea/Vomitin-No Nausea/No Vomiting Muscle Tremors: 1-None Visible, but [place] Anxiety: 1-Mildly Anxious Agitation: 1-Slight > Activity Paroxysmal Sweats: 1-Minimal Palms Moist Orientation: 1-Uncertain about Date Tacttile Disturbances: 0-None Auditory Disturbances: 0-None Visual Disturbances: 0-None Headache: 0-None Present CIWA-Ar Total Score: 5 BHS Progress Note (SOAP) Subjective: feeling better less sweating mild tremor Objective: 12/11/18 16:07 Vital Signs Temperature 97.7 F 12/11/18 09:23 Pulse Rate 78 12/11/18 09:23 Respiratory Rate 18 12/11/18 09:23 Blood Pressure 120/74 12/11/18 09:23 O2 Sat by Pulse Oximetry (%) Laboratory Last Values WBC 3.3 K/mm3 (4.0-10.0) L 12/09/18 07:40 RBC 4.10 M/mm3 (4.00-5.60) 12/09/18 07:40 Hgb 12.1 GM/dL (11.7-16.9) 12/09/18 07:40 Hct 35.5 % (35.4-49) 12/09/18 07:40 MCV 86.5 fl (80-96) 12/09/18 07:40 MCH 29.5 pg (25.7-33.7) 12/09/18 07:40 MCHC 34.2 g/dl (32.0-35.9) 12/09/18 07:40 RDW 16.8 % (11.9-15.9) H 12/09/18 07:40 Plt Count 218 K/MM3 (134-434) D 12/09/18 07:40 MPV 6.8 fl (7.5-11.1) L D 12/09/18 07:40 Sodium 136 mmol/L (136-145) 12/09/18 07:40 Potassium 3.4 mmol/L (3.5-5.1) L 12/10/18 11:20 Chloride 98 mmol/L (98-107) 12/09/18 07:40 Carbon Dioxide 26 mmol/L (21-32) 12/09/18 07:40 Anion Gap 13 MMOL/L (8-16) 12/09/18 07:40 BUN 14 mg/dL (7-18) 12/09/18 07:40 Creatinine 0.7 mg/dL (0.55-1.3) 12/09/18 07:40 Creat Clearance w eGFR > 60 (>60) 12/09/18 07:40 POC Glucometer 146 UNITS (80-120) 12/11/18 05:49 Random Glucose 119 mg/dL (74-106) H 12/09/18 07:40 Calcium 8.2 mg/dL (8.5-10.1) L 12/09/18 07:40 Total Bilirubin 0.9 mg/dL (0.2-1) 12/09/18 07:40 AST 134 U/L (15-37) H 12/10/18 11:20 ALT 71 U/L (13-61) H 12/09/18 07:40 Alkaline Phosphatase 132 U/L (45-117) H 12/09/18 07:40 Total Protein 7.7 g/dl (6.4-8.2) 12/09/18 07:40 Albumin 3.3 g/dl (3.4-5.0) L 12/09/18 07:40 Urine Color Ltyellow 12/08/18 14:12 Urine Appearance Clear 12/08/18 14:12 Urine pH 5.0 (5.0-8.0) 12/08/18 14:12 Ur Specific [place] 1.015 (1.010-1.035) 12/08/18 14:12 Urine Protein 2+ (NEGATIVE) H 12/08/18 14:12 Urine Glucose (UA) Negative (NEGATIVE) 12/08/18 14:12 Urine Ketones Negative (NEGATIVE) 12/08/18 14:12 Urine Blood 1+ (NEGATIVE) H 12/08/18 14:12 Urine Nitrite Negative (NEGATIVE) 12/08/18 14:12 Urine Bilirubin Negative (<2.0 mg/dL) 12/08/18 14:12 Urine Urobilinogen Negative mg/dL (0.2-1.0) 12/08/18 14:12 Ur Leukocyte Esterase 1+ (NEGATIVE) H 12/08/18 14:12 Urine WBC (Auto) 31 /hpf (3-5) 12/08/18 14:12 Urine RBC (Auto) <1 /hpf (0-3) 12/08/18 14:12 Ur Epithelial Cells Rare /HPF (FEW) 12/08/18 14:12 Urine Mucus Rare 12/08/18 14:12 RPR Titer Nonreactive (NONREACTIVE) 12/09/18 07:40 lab noted low K+ ast elevation 12/11/18 16:14 Assessment: 12/11/18 16:13 mild withdrawal sx Plan: continued detox K+ 40 meq bid repeat ast
[2018-12-11] MEDS ORDERED: METOPROLOL TARTRATE 50 MG TABLET (FP) PO SCH ×2 (16:10→22:00)
[2018-12-11] MEDS: chlordiazePOXIDE HCL 10 MG CAPSULE PO SCH ×2 (16:33→22:50)
[2018-12-11] MEDS: POTASSIUM CHLORIDE ORAL LIQUID 20 MEQ/15 ML PO SCH ×2 (18:20→21:52)
[2018-12-11] MEDS: THIAMINE HCL 100 MG TABLET (FP) PO SCH (21:53)
[2018-12-12 06:15] VITALS: BP 112/65; PULSE 67; TEMP 98
[2018-12-12] MEDS: chlordiazePOXIDE HCL 10 MG CAPSULE PO SCH (07:51)
[2018-12-12] MEDS: metFORMIN HCL 500 MG TABLET (FP) PO SCH (07:51)
--- NOTE | 2018-12-12 13:17 | DS ---
[facility] Detox Discharge Summary Admission Date: 12/08/18 Discharge Date: 12/12/18 - History Present History: Alcohol Dependence Additional Comments: 53 years old male admitted on 12/08/18 for alcohol withdrawal stabilization completed detox regimen aftercare [facility] services Pertinent Past History: keep medication list in wallet bring-in bottles of medication and medication list to aftercare appointment important of medication adherence update medication list when change of medication bring-in lab report to follow up and aftercare appointments patient agrees to follow up with his primary care provider for elevated liver enzyme and low K+ - Physical Exam Results Vital Signs: Vital Signs Temperature 98 F 12/12/18 06:15 Pulse Rate 67 12/12/18 06:15 Respiratory Rate 20 12/12/18 06:15 Blood Pressure 112/65 12/12/18 06:15 O2 Sat by Pulse Oximetry (%) Pertinent Admission Physical Exam Findings: alcohol withdrawal sx Laboratory Last Values WBC 3.3 K/mm3 (4.0-10.0) L 12/09/18 07:40 RBC 4.10 M/mm3 (4.00-5.60) 12/09/18 07:40 Hgb 12.1 GM/dL (11.7-16.9) 12/09/18 07:40 Hct 35.5 % (35.4-49) 12/09/18 07:40 MCV 86.5 fl (80-96) 12/09/18 07:40 MCH 29.5 pg (25.7-33.7) 12/09/18 07:40 MCHC 34.2 g/dl (32.0-35.9) 12/09/18 07:40 RDW 16.8 % (11.9-15.9) H 12/09/18 07:40 Plt Count 218 K/MM3 (134-434) D 12/09/18 07:40 MPV 6.8 fl (7.5-11.1) L D 12/09/18 07:40 Sodium 136 mmol/L (136-145) 12/09/18 07:40 Potassium 3.4 mmol/L (3.5-5.1) L 12/10/18 11:20 Chloride 98 mmol/L (98-107) 12/09/18 07:40 Carbon Dioxide 26 mmol/L (21-32) 12/09/18 07:40 Anion Gap 13 MMOL/L (8-16) 12/09/18 07:40 BUN 14 mg/dL (7-18) 12/09/18 07:40 Creatinine 0.7 mg/dL (0.55-1.3) 12/09/18 07:40 Creat Clearance w eGFR > 60 (>60) 12/09/18 07:40 POC Glucometer 141 UNITS (80-120) 12/12/18 06:08 Random Glucose 119 mg/dL (74-106) H 12/09/18 07:40 Calcium 8.2 mg/dL (8.5-10.1) L 12/09/18 07:40 Total Bilirubin 0.9 mg/dL (0.2-1) 12/09/18 07:40 AST 134 U/L (15-37) H 12/10/18 11:20 ALT 71 U/L (13-61) H 12/09/18 07:40 Alkaline Phosphatase 132 U/L (45-117) H 12/09/18 07:40 Total Protein 7.7 g/dl (6.4-8.2) 12/09/18 07:40 Albumin 3.3 g/dl (3.4-5.0) L 12/09/18 07:40 Urine Color Ltyellow 12/08/18 14:12 Urine Appearance Clear 12/08/18 14:12 Urine pH 5.0 (5.0-8.0) 12/08/18 14:12 Ur Specific [place] 1.015 (1.010-1.035) 12/08/18 14:12 Urine Protein 2+ (NEGATIVE) H 12/08/18 14:12 Urine Glucose (UA) Negative (NEGATIVE) 12/08/18 14:12 Urine Ketones Negative (NEGATIVE) 12/08/18 14:12 Urine Blood 1+ (NEGATIVE) H 12/08/18 14:12 Urine Nitrite Negative (NEGATIVE) 12/08/18 14:12 Urine Bilirubin Negative (<2.0 mg/dL) 12/08/18 14:12 Urine Urobilinogen Negative mg/dL (0.2-1.0) 12/08/18 14:12 Ur Leukocyte Esterase 1+ (NEGATIVE) H 12/08/18 14:12 Urine WBC (Auto) 31 /hpf (3-5) 12/08/18 14:12 Urine RBC (Auto) <1 /hpf (0-3) 12/08/18 14:12 Ur Epithelial Cells Rare /HPF (FEW) 12/08/18 14:12 Urine Mucus Rare 12/08/18 14:12 RPR Titer Nonreactive (NONREACTIVE) 12/09/18 07:40 lab noted - Treatment Hospital Course: Detox Protocol Followed, Detoxed Safely, Responded well, Discharged Condition Good, Rehab Referral Accepted Patient [facility] - Medication Discharge Medications: Ambulatory Orders Aspirin [ASA -] 81 mg PO DAILY 05/22/18 Folic Acid - 1 mg PO DAILY 11/17/18 Gabapentin 600 mg PO TID 11/17/18 Naltrexone HCl 50 mg PO DAILY 11/17/18 Ranitidine [Zantac -] 150 mg PO DAILY 11/17/18 Thiamine Mononitrate [Vitamin B-1] 100 mg PO DAILY 11/17/18 Thiamine Mononitrate [Vitamin B-1] 100 mg PO DAILY 11/17/18 Doxycycline Hyclate 100 mg PO BID #14 tablet 11/21/18 Amlodipine Besylate [Norvasc -] 10 mg PO DAILY #30 tablet 12/11/18 Atenolol [Tenormin -] 100 mg PO DAILY #30 tablet 12/11/18 Atorvastatin Ca [Lipitor] 20 mg PO DAILY #14 tablet 12/11/18 Metoprolol Tartrate [Lopressor -] 50 mg PO BID #60 tablet 12/11/18 levETIRAcetam [Keppra -] 500 mg PO BID #60 tablet 12/11/18 metFORMIN HCL [Glucophage -] 1,000 mg PO BID@0700,1630 #30 tablet 12/11/18 - Diagnosis (1) Alcohol dependence with uncomplicated withdrawal Status: Acute (2) Seizure Status: Chronic (3) DM2 (diabetes mellitus, type 2) Status: Chronic Qualifiers: Diabetes mellitus termination clerk insulin use: without intermediate use Diabetes mellitus complication status: without complication Qualified Code(s): E11.9 - Type 2 diabetes mellitus without complications (4) Essential (primary) hypertension Status: Chronic (5) Hyperlipemia Status: Chronic Qualifiers: Hyperlipidemia type: pure hypercholesterolemia Qualified Code(s): E78.00 - Pure hypercholesterolemia, unspecified; E78.0 - Pure hypercholesterolemia (6) Substance induced mood disorder Status: Suspected (7) PPD positive, treated Status: Resolved - AMA Did Patient Leave Against Medical Advice: No
== END 2018-12-12 08:50 | disposition home or self-care (01) | DRG 775 ==
LOC: YASAS 08:19 → Y3N 09:43
PROVIDERS: ADMIT Surgery; ATTEND Surgery
PROC: HZ2ZZZZ Detoxification Services for Substance Abuse Treatment (ICD-10-PCS; principal; 2018-12-08)
DX: F10.230 Alcohol dependence with withdrawal, uncomplicated (principal); F10.220 Alcohol dependence with intoxication, uncomplicated; F19.24 Other psychoactive substance dependence with psychoactive substance-induced mood disorder; I10 Essential (primary) hypertension; E78.5 Hyperlipidemia, unspecified; E11.9 Type 2 diabetes mellitus without complications; R76.11 Nonspecific reaction to tuberculin skin test without active tuberculosis; G40.909 Epilepsy, unspecified, not intractable, without status epilepticus; K61.0 Anal abscess; Z59.0 Homelessness
CPT/HCPCS: 36415; 80053; 81003; 81015; 82962; 84132; 84450; 85027; 86593

== ENCOUNTER 2019-01-31 08:47 | Inpatient (IN) | payer OTHER ==
[2019-01-31 09:46] VITALS: BMI 34.1
--- NOTE | 2019-01-31 10:30 | HP ---
CIWA Score Nausea/Vomitin Muscle Tremors: 2 Anxiety: 2 Agitation: 2 Paroxysmal Sweats: 1-Minimal Palms Moist Orientation: 0-Oriented Tacttile Disturbances: 1-Very Mild Itch/Numbness Auditory Disturbances: 1-Very Mild Visual Disturbances: 0-None Headache: 2-Mild CIWA-Ar Total Score: 13 - Admission Criteria OASAS Guidelines: Admission for Medically Managed Detox: Requires at least one of the followin. CIWA greater than 12 2. Seizures within the past 24 hours 3. Delirium tremens within the past 24 hours 4. Hallucinations within the past 24 hours 5. Acute intervention needed for co occurring medical disorder 6. Acute intervention needed for co occurring psychiatric disorder 7. Severe withdrawal that cannot be handled at a lower level of care (continued vomiting, continued diarrhea, abnormal vital signs) requiring intravenous medication and/or fluids 8. Admission ROS BHS - HPI Chief Complaint: i need help to stop drinking alcohol Allergies/Adverse Reactions: Allergies Allergy/AdvReac Type Severity Reaction Status Date / Time RASHAD Inhibitors Allergy Severe Swelling Verified 01/31/19 09:37 lisinopril Allergy Severe Swelling Verified 01/31/19 09:37 History of Present Illness: this 53 years old male with alcohol dependence seeking detox,withdrawal symptom, seen in [place] last night multiple admissions in detox,last [facility] 12/08/18 to 12/12/18 history of hypertension,type 2 d,hypercholesterolemia, old mi 5 years ago kidney stones multiple admissions in the past but keep relapsing plan for rehab after rehab Exam Limitations: No Limitations - Ebola screening Have you traveled outside of the country in the last 21 days: No (N) Have you had contact with anyone from an Ebola affected area: No Do you have a fever: No - Review of Systems Constitutional: Loss of Appetite, Malaise, Night Sweats, Changes in sleep EENT: reports: Nose Congestion Respiratory: reports: No Symptoms reported Cardiac: reports: No Symptoms Reported GI: reports: Nausea, Poor Appetite, Vomiting : reports: No Symptoms Reported Integumentary: reports: Dryness Neuro: reports: Headache, Seizure Endocrine: reports: No Symptoms Reported Hematology: reports: No Symptoms Reported Psychiatric: reports: No Sypmtoms Reported, Judgement Intact, Mood/Affect Appropiate, Orientated x3 Other Systems: Reviewed and Negative Patient History - Patient Medical History Hx Anemia: No Hx Asthma: No Hx Chronic Obstructive Pulmonary Disease (COPD): No Hx Cancer: No Hx Cardiac Disorders: No Hx Congestive Heart Failure: No Hx Hypertension: No Hx Hypercholesterolemia: Yes (Gemfibra) Hx Pacemaker: No HX Cerebrovascular Accident: No Hx Seizures: No Hx Dementia: No Hx Diabetes: Yes (type 2 dm) Hx Gastrointestinal Disorders: No Hx Liver Disease: No Hx Genitourinary Disorders: No Hx Sexually Transmitted Disorders: No Hx Renal Disease (ESRD): No Hx Thyroid Disease: No Hx Human Immunodeficiency Virus (HIV): No (Negative 2018 in 09/01) Hx Hepatitis C: No Hx Depression: No Hx Suicide Attempt: No Hx Bipolar Disorder: No Hx Schizophrenia: No Other Medical History: o suicidal,no homcidal,frequent falls - Patient Surgical History Past Surgical History: Yes Hx Neurologic Surgery: No Hx Cataract Extraction: No Hx Cardiac Surgery: No Hx Lung Surgery: No Hx Breast Surgery: No Hx Breast Biopsy: No Hx Abdominal Surgery: No Hx Appendectomy: No Hx Cholecystectomy: No Hx Genitourinary Surgery: Yes (left kidney stone removed in 2015) Hx Section: No Hx Orthopedic Surgery: No Other Surgical History: left kidney stone removed 11/2015 Anesthesia Reaction: No - PPD History Documented Results: Positive w/proof Implanted On Prior [facility] Admission?: No Results: cxray(-)04/29/18 PPD to be Administered?: No - Smoking Cessation Smoking history: Never smoked Have you smoked in the past 12 months: No Aproximately how many cigarettes per day: 1 If you are a former smoker, when did you quit?: at age 19 Cigars Per Day: 1 Hx Chewing Tobacco Use: No Initiated information on smoking cessation: Yes 'Breaking Loose' booklet given: 01/31/19 - Substances abused Alcohol Substance route: Oral Frequency: Daily Amount used: 1 PINT VODKA + 2PACK BEER Age of first use: 18 Date of last use: 01/31/19 Family Disease History - Family Disease History Family Disease History: Heart Disease: Mother (HTN), Other: Father (Alcohol), Mother, Brother (Alcohol) Admission Physical Exam BHS - Vital Signs Vital Signs: Vital Signs - 24 hr 01/31/19 09:36 Temperature 99 F Pulse Rate 94 H Respiratory 20 Rate Blood Pressure 107/70 - Physical General Appearance: Yes: Moderate Distress, Sweating, Anxious HEENTM: Yes: Normal ENT Inspection, FIDEL, Pharynx Normal Respiratory: Yes: Within Normal Limits, Lungs Clear, Normal Breath Sounds Neck: Yes: No masses,lesions,Nodules, Supple, Trachea in good position Breast: Yes: Within Normal Limits Cardiology: Yes: Within Normal Limits, Regular Rhythm, Regular Rate, S1, S2 Abdominal: Yes: Normal Bowel Sounds, Non Tender, Flat, Soft Genitourinary: Yes: Within Normal Limits Back: Yes: Muscle Spasm Musculoskeletal: Yes: Back pain, Muscle Pain Extremities: Yes: Tremors Neurological: Yes: inspector type II-XII NML intact, Fully Oriented, Alert, Motor Strength 5/5 Integumentary: Yes: Dry Lymphatic: Yes: Within Normal Limits - Diagnostic (1) Alcohol dependence with uncomplicated withdrawal Current Visit: No Status: Acute (2) Syncope Current Visit: No Status: Acute (3) DM2 (diabetes mellitus, type 2) Current Visit: No Status: Chronic Qualifiers: Diabetes mellitus correction insulin use: without correction use Diabetes mellitus complication status: without complication Qualified Code(s): E11.9 - Type 2 diabetes mellitus without complications (4) Seizure Current Visit: No Status: Chronic (5) Frequent falls Current Visit: Yes Status: Acute Cleared for Admission BHS - Detox or Rehab S Level of Care: Medically Managed (ativan regimen by patient's request) Breathalyzer - Breathalyzer Breathalyzer: 0.110 Urine Drug Screen - Test Device Lot number: [id number] Expiration date: 09/13/20 - Control Is test valid?: Yes - Results Drug screen NEGATIVE: No Urine drug screen results: BZO-Benzodiazepines Inpatient Rehab Admission - Rehab Decision to Admit Inpatient rehab admission?: No
[2019-01-31] MEDS ORDERED: METHOCARBAMOL 500 MG TABLET PO PRN (10:38)
[2019-01-31] MEDS ORDERED: LORazepam 1 MG TABLET PO PRN (10:38)
[2019-01-31] MEDS ORDERED: ACETAMINOPHEN 325 MG TABLET (FP) PO PRN ×2 (10:38)
[2019-01-31] MEDS ORDERED: MAGNESIUM CITRATE 300 ML BOTTLE PO PRN (10:38)
[2019-01-31] MEDS ORDERED: IBUPROFEN 400 MG TABLET (FP) PO PRN (10:38)
[2019-01-31] MEDS ORDERED: MAG HYDROX/AL HYDROX/SIMETH 30 ML UNIT-DOSE CUP PO PRN (10:38)
[2019-01-31] MEDS ORDERED: BISMUTH SUBSALICYLATE 262 MG/15 ML BTL PO PRN (10:38)
[2019-01-31] MEDS ORDERED: MAGNESIUM HYDROX 2400MG/30ML ORAL SUSPENSION 30 ML CUP PO PRN (10:38)
[2019-01-31] MEDS ORDERED: hydrOXYzine PAMOATE 25 MG CAPSULE (FP) PO PRN (10:38)
[2019-01-31] MEDS ORDERED: MENTHOL/PHENOL 1 EACH UD MM PRN (10:38)
[2019-01-31 14:54] LABS: HEMOGLOBIN 11.4 GM/dL (11.7-16.9); MCH 30.2 pg (25.7-33.7); MCHC 33.5 g/dl (32.0-35.9); MEAN CELL VOLUME 90.1 fl (80-96); MEAN PLT VOLUME 7.6 fl (7.5-11.1); PLATELET COUNT 177 K/MM3 (134-434); RBC 3.77 M/mm3 (4.00-5.60); RDW 15.8 % (11.9-15.9); WHITE BLOOD COUNT 5.1 K/mm3 (4.0-10.0)
[2019-01-31 15:06] LABS: ALBUMIN 3.3 g/dl (3.4-5.0); ALK PHOS 107 U/L (45-117); ANION GAP 10 MMOL/L (8-16); BILIRUBIN,TOTAL 0.3 mg/dL (0.2-1); BLOOD UREA NITROGEN 21 mg/dL (7-18); CALCIUM 8.5 mg/dL (8.5-10.1); CHLORIDE 107 mmol/L (98-107); CO2 24 mmol/L (21-32); CREATININE 0.8 mg/dL (0.55-1.3); GLUCOSE,RANDOM 144 mg/dL (74-106); POTASSIUM 3.2 mmol/L (3.5-5.1); SGOT/AST 101 U/L (15-37); SGPT/ALT 60 U/L (13-61); SODIUM 141 mmol/L (136-145); TOT PROT 7.2 g/dl (6.4-8.2)
[2019-01-31] MEDS: metFORMIN HCL 500 MG TABLET (FP) PO SCH (17:42)
[2019-01-31] MEDS: LORazepam 2 MG TABLET PO SCH ×2 (17:42→22:28)
[2019-01-31] MEDS: METOPROLOL TARTRATE 50 MG TABLET (FP) PO SCH (22:28)
[2019-01-31] MEDS: BACITRACIN 0.9 GM PACKET TP SCH (22:28)
[2019-01-31] MEDS: THIAMINE HCL 100 MG TABLET (FP) PO SCH (22:28)
[2019-02-01] MEDS ORDERED: POTASSIUM CHLORIDE TABS 20 MEQ TABLET.ER (FP) PO ONE (02:42)
[2019-02-01] MEDS: LORazepam 2 MG TABLET PO SCH ×2 (05:40→10:20)
[2019-02-01] MEDS: metFORMIN HCL 500 MG TABLET (FP) PO SCH ×2 (07:32→17:22)
[2019-02-01] MEDS: RANITIDINE HCL 150 MG TABLET (FP) PO SCH (10:19)
[2019-02-01] MEDS: ASPIRIN 81 MG CHEWABLE TABLETS PO SCH (10:19)
[2019-02-01] MEDS: BACITRACIN 0.9 GM PACKET TP SCH ×2 (10:19→22:36)
[2019-02-01] MEDS: PRENATAL VITAMINS W/ FOLIC ACID TABLET (FP) PO SCH (10:19)
[2019-02-01] MEDS: ATORVASTATIN CA 20 MG TABLET (FP) PO SCH (10:19)
[2019-02-01] MEDS: METOPROLOL TARTRATE 50 MG TABLET (FP) PO SCH (10:19)
--- NOTE | 2019-02-01 17:02 | PN ---
S CIWA - CIWA Score Nausea/Vomitin Muscle Tremors: None Anxiety: 0-No Anxiety, at Ease Agitation: 0-Normal Activity Paroxysmal Sweats: 2 Orientation: 0-Oriented Tacttile Disturbances: 2-Mild Itch/Numbness/Burn Auditory Disturbances: 2-Mild Harshness/Frighten Visual Disturbances: 3-Moderate Sensitivity Headache: 0-None Present CIWA-Ar Total Score: 12 BHS Progress Note (SOAP) Subjective: Body Aches, Nausea, Diarrhea, Sweating. Objective: PATIENT A & O X 3. IN NO ACUTE DISTRESS. PATIENT DENIES CHEST PAIN. 02/01/19 17:06 Vital Signs Temperature 98.8 F 02/01/19 13:57 Pulse Rate 78 02/01/19 13:57 Respiratory Rate 18 02/01/19 13:57 Blood Pressure 145/84 02/01/19 13:57 O2 Sat by Pulse Oximetry (%) Laboratory Tests 01/31/19 01/31/19 01/31/19 10:28 10:55 10:55 WBC 5.1 RBC 3.77 L Hgb 11.4 L Hct 34.0 L MCV 90.1 MCH 30.2 MCHC 33.5 RDW 15.8 Plt Count 177 MPV 7.6 D Sodium 141 Potassium 3.2 L Chloride 107 Carbon Dioxide 24 Anion Gap 10 BUN 21 H Creatinine 0.8 Creat Clearance w eGFR 100.74 POC Glucometer 166 Random Glucose 144 H Calcium 8.5 Total Bilirubin 0.3 AST 101 H ALT 60 Alkaline Phosphatase 107 Total Protein 7.2 Albumin 3.3 L RPR Titer HIV 1&2 Antibody Screen HIV P24 Antigen 01/31/19 01/31/19 01/31/19 10:55 10:55 17:19 WBC RBC Hgb Hct MCV MCH MCHC RDW Plt Count MPV Sodium Potassium Chloride Carbon Dioxide Anion Gap BUN Creatinine Creat Clearance w eGFR POC Glucometer 184 Random Glucose Calcium Total Bilirubin AST ALT Alkaline Phosphatase Total Protein Albumin RPR Titer Nonreactive HIV 1&2 Antibody Screen Negative HIV P24 Antigen Negative 02/01/19 02/01/19 05:39 16:45 WBC RBC Hgb Hct MCV MCH MCHC RDW Plt Count MPV Sodium Potassium Chloride Carbon Dioxide Anion Gap BUN Creatinine Creat Clearance w eGFR POC Glucometer 140 185 Random Glucose Calcium Total Bilirubin AST ALT Alkaline Phosphatase Total Protein Albumin RPR Titer HIV 1&2 Antibody Screen HIV P24 Antigen LABS NOTED. Assessment: 02/01/19 17:06 WITHDRAWAL SYMPTOMS. HYPOKALEMIA. ELEVATED AST LEVEL. HYPERTENSION. Plan: CONTINUE DETOX. INCREASE DAILY PO FLUID / WATER INTAKE. PATIENT REPORTED RECENT HISTORY OF TAKING ATENOLOL, 100 MG PO DAILY OUTPATIENT (THIS CONFIR[facility] [place] [facility] WILL START WITH ATENOLOL, 25 MG PO DAILY AND TITRATE UPWARD NECESSARY. K-DUR, 20 MEQ PO BID. RE-CHECK K LEVEL ON 02/03/2019. RE-CHECK AST LEVEL ON 02/03/2019 FOR ELEVATED ADMISSION AST LEVEL.
[2019-02-01] MEDS ORDERED: ATENOLOL 25 MG TABLET (FP) PO ONE (17:15)
[2019-02-01] MEDS: LORazepam 1 MG TABLET PO SCH ×2 (17:22→22:36)
[2019-02-01] MEDS: POTASSIUM CHLORIDE TABS 20 MEQ TABLET.ER (FP) PO SCH (18:28)
[2019-02-01] MEDS: MELATONIN 5 MG TABLETS PO PRN (22:36)
[2019-02-01] MEDS: THIAMINE HCL 100 MG TABLET (FP) PO SCH (22:36)
[2019-02-02] MEDS: LORazepam 1 MG TABLET PO SCH ×2 (05:48→10:27)
[2019-02-02] MEDS: metFORMIN HCL 500 MG TABLET (FP) PO SCH ×2 (07:07→16:38)
[2019-02-02 10:25] LABS: ALBUMIN 3.4 g/dl (3.4-5.0); ALK PHOS 87 U/L (45-117); ANION GAP 11 MMOL/L (8-16); BILIRUBIN,TOTAL 0.7 mg/dL (0.2-1); BLOOD UREA NITROGEN 13 mg/dL (7-18); CALCIUM 8.7 mg/dL (8.5-10.1); CHLORIDE 103 mmol/L (98-107); CO2 23 mmol/L (21-32); CREATININE 0.7 mg/dL (0.55-1.3); GLUCOSE,RANDOM 137 mg/dL (74-106); POTASSIUM 3.6 mmol/L (3.5-5.1); SGOT/AST 121 U/L (15-37); SGPT/ALT 79 U/L (13-61); SODIUM 137 mmol/L (136-145); TOT PROT 7.6 g/dl (6.4-8.2)
[2019-02-02] MEDS: ATORVASTATIN CA 20 MG TABLET (FP) PO SCH (10:25)
[2019-02-02] MEDS: PRENATAL VITAMINS W/ FOLIC ACID TABLET (FP) PO SCH (10:25)
[2019-02-02] MEDS: RANITIDINE HCL 150 MG TABLET (FP) PO SCH (10:25)
[2019-02-02] MEDS: ASPIRIN 81 MG CHEWABLE TABLETS PO SCH (10:25)
[2019-02-02] MEDS: BACITRACIN 0.9 GM PACKET TP SCH ×2 (10:25→22:37)
[2019-02-02] MEDS: ATENOLOL 25 MG TABLET (FP) PO SCH (10:25)
[2019-02-02] MEDS: POTASSIUM CHLORIDE TABS 20 MEQ TABLET.ER (FP) PO SCH ×2 (10:26→17:22)
--- NOTE | 2019-02-02 10:33 | PN ---
S CIWA - CIWA Score Nausea/Vomitin-Mild Nausea/No Vomiting Muscle Tremors: 2 Anxiety: 2 Agitation: 2 Paroxysmal Sweats: 1-Minimal Palms Moist Orientation: 0-Oriented Tacttile Disturbances: 0-None Auditory Disturbances: 0-None Visual Disturbances: 0-None Headache: 0-None Present CIWA-Ar Total Score: 8 BHS Progress Note (SOAP) Subjective: feeling better tolerate food well report long history of liver enzyme elevation patient agrees to bring in lab report to primary care follow up appointment Objective: 02/02/19 10:36 Vital Signs Temperature 97.8 F 02/02/19 09:13 Pulse Rate 95 H 02/02/19 09:13 Respiratory Rate 20 02/02/19 09:13 Blood Pressure 149/97 02/02/19 09:13 O2 Sat by Pulse Oximetry (%) Laboratory Last Values WBC 5.1 K/mm3 (4.0-10.0) 01/31/19 10:55 RBC 3.77 M/mm3 (4.00-5.60) L 01/31/19 10:55 Hgb 11.4 GM/dL (11.7-16.9) L 01/31/19 10:55 Hct 34.0 % (35.4-49) L 01/31/19 10:55 MCV 90.1 fl (80-96) 01/31/19 10:55 MCH 30.2 pg (25.7-33.7) 01/31/19 10:55 MCHC 33.5 g/dl (32.0-35.9) 01/31/19 10:55 RDW 15.8 % (11.9-15.9) 01/31/19 10:55 Plt Count 177 K/MM3 (134-434) 01/31/19 10:55 MPV 7.6 fl (7.5-11.1) D 01/31/19 10:55 Sodium 137 mmol/L (136-145) 02/02/19 07:40 Potassium 3.6 mmol/L (3.5-5.1) 02/02/19 07:40 Chloride 103 mmol/L (98-107) 02/02/19 07:40 Carbon Dioxide 23 mmol/L (21-32) 02/02/19 07:40 Anion Gap 11 MMOL/L (8-16) 02/02/19 07:40 BUN 13 mg/dL (7-18) 02/02/19 07:40 Creatinine 0.7 mg/dL (0.55-1.3) 02/02/19 07:40 Creat Clearance w eGFR 117.52 (>60) 02/02/19 07:40 POC Glucometer 130 UNITS (80-120) 02/02/19 05:48 Random Glucose 137 mg/dL (74-106) H 02/02/19 07:40 Calcium 8.7 mg/dL (8.5-10.1) 02/02/19 07:40 Total Bilirubin 0.7 mg/dL (0.2-1) 02/02/19 07:40 AST 121 U/L (15-37) H 02/02/19 07:40 ALT 79 U/L (13-61) H 02/02/19 07:40 Alkaline Phosphatase 87 U/L (45-117) 02/02/19 07:40 Total Protein 7.6 g/dl (6.4-8.2) 02/02/19 07:40 Albumin 3.4 g/dl (3.4-5.0) 02/02/19 07:40 RPR Titer Nonreactive (NONREACTIVE) 01/31/19 10:55 HIV 1&2 Antibody Screen Negative 01/31/19 10:55 HIV P24 Antigen Negative 01/31/19 10:55 lab noted repeat ast patient has month supply of medications at home last filled 01/10/19 02/02/19 10:39 Assessment: 02/02/19 10:37 mild withdrawal sx Plan: continue detox
[2019-02-02] MEDS: LORazepam 0.5 MG TABLET PO SCH ×2 (16:38→22:38)
[2019-02-02] MEDS ORDERED: LORazepam 0.5 MG TABLET PO PRN (17:00)
[2019-02-02] MEDS: THIAMINE HCL 100 MG TABLET (FP) PO SCH (22:38)
[2019-02-02] MEDS: MELATONIN 5 MG TABLETS PO PRN (22:39)
[2019-02-03] MEDS: LORazepam 0.5 MG TABLET PO SCH ×2 (05:28→10:37)
[2019-02-03] MEDS: metFORMIN HCL 500 MG TABLET (FP) PO SCH (07:36)
[2019-02-03 09:24] VITALS: BP 164/96; PULSE 84; TEMP 98.1
[2019-02-03 09:51] LABS: POTASSIUM 3.7 mmol/L (3.5-5.1)
[2019-02-03] MEDS: BACITRACIN 0.9 GM PACKET TP SCH (10:36)
[2019-02-03] MEDS: RANITIDINE HCL 150 MG TABLET (FP) PO SCH (10:36)
[2019-02-03] MEDS: ATENOLOL 25 MG TABLET (FP) PO SCH (10:36)
[2019-02-03] MEDS: ATORVASTATIN CA 20 MG TABLET (FP) PO SCH (10:36)
[2019-02-03] MEDS: POTASSIUM CHLORIDE TABS 20 MEQ TABLET.ER (FP) PO SCH (10:36)
[2019-02-03] MEDS: ASPIRIN 81 MG CHEWABLE TABLETS PO SCH (10:36)
[2019-02-03] MEDS: PRENATAL VITAMINS W/ FOLIC ACID TABLET (FP) PO SCH (10:37)
--- NOTE | 2019-02-03 17:20 | PN ---
S CIWA - CIWA Score Nausea/Vomitin-No Nausea/No Vomiting Muscle Tremors: None Anxiety: 1-Mildly Anxious Agitation: 0-Normal Activity Paroxysmal Sweats: No Perspiration Orientation: 0-Oriented Tacttile Disturbances: 1-Very Mild Itch/Numbness Auditory Disturbances: 0-None Visual Disturbances: 1-Very Mild Sensitivity Headache: 0-None Present CIWA-Ar Total Score: 3 BHS Progress Note (SOAP) Subjective: Body Aches (Mild). Objective: PATIENT A & O X 3, OBSERVED AMBULATING ON UNIT UNASSISTED. IN NO ACUTE DISTRESS. 02/03/19 17:19 Vital Signs Temperature 98.1 F 02/03/19 09:22 Pulse Rate 84 02/03/19 09:22 Respiratory Rate 20 02/03/19 09:22 Blood Pressure 164/96 02/03/19 09:22 O2 Sat by Pulse Oximetry (%) Laboratory Tests 01/31/19 01/31/19 01/31/19 10:28 10:55 10:55 WBC 5.1 RBC 3.77 L Hgb 11.4 L Hct 34.0 L MCV 90.1 MCH 30.2 MCHC 33.5 RDW 15.8 Plt Count 177 MPV 7.6 D Sodium 141 Potassium 3.2 L Chloride 107 Carbon Dioxide 24 Anion Gap 10 BUN 21 H Creatinine 0.8 Creat Clearance w eGFR 100.74 POC Glucometer 166 Random Glucose 144 H Calcium 8.5 Total Bilirubin 0.3 AST 101 H ALT 60 Alkaline Phosphatase 107 Total Protein 7.2 Albumin 3.3 L RPR Titer HIV 1&2 Antibody Screen HIV P24 Antigen 01/31/19 01/31/19 01/31/19 10:55 10:55 17:19 WBC RBC Hgb Hct MCV MCH MCHC RDW Plt Count MPV Sodium Potassium Chloride Carbon Dioxide Anion Gap BUN Creatinine Creat Clearance w eGFR POC Glucometer 184 Random Glucose Calcium Total Bilirubin AST ALT Alkaline Phosphatase Total Protein Albumin RPR Titer Nonreactive HIV 1&2 Antibody Screen Negative HIV P24 Antigen Negative 02/01/19 02/01/19 02/02/19 05:39 16:45 05:48 WBC RBC Hgb Hct MCV MCH MCHC RDW Plt Count MPV Sodium Potassium Chloride Carbon Dioxide Anion Gap BUN Creatinine Creat Clearance w eGFR POC Glucometer 140 185 130 Random Glucose Calcium Total Bilirubin AST ALT Alkaline Phosphatase Total Protein Albumin RPR Titer HIV 1&2 Antibody Screen HIV P24 Antigen 02/02/19 02/02/19 02/03/19 07:40 16:35 05:27 WBC RBC Hgb Hct MCV MCH MCHC RDW Plt Count MPV Sodium 137 Potassium 3.6 Chloride 103 Carbon Dioxide 23 Anion Gap 11 BUN 13 Creatinine 0.7 Creat Clearance w eGFR 117.52 POC Glucometer 132 124 Random Glucose 137 H Calcium 8.7 Total Bilirubin 0.7 AST 121 H ALT 79 H Alkaline Phosphatase 87 Total Protein 7.6 Albumin 3.4 RPR Titer HIV 1&2 Antibody Screen HIV P24 Antigen 02/03/19 07:45 WBC RBC Hgb Hct MCV MCH MCHC RDW Plt Count MPV Sodium Potassium 3.7 Chloride Carbon Dioxide Anion Gap BUN Creatinine Creat Clearance w eGFR POC Glucometer Random Glucose Calcium Total Bilirubin AST 149 H ALT 116 H Alkaline Phosphatase Total Protein Albumin RPR Titer HIV 1&2 Antibody Screen HIV P24 Antigen LABS NOTED. Assessment: 02/03/19 17:19 COMPLETION OF DETOX REGIMEN. Plan: SINCE PATIENT REPORTS THAT CURRENT WITHDRAWAL / DETOX SYMPTOMS ARE MINIMAL IN DEGREE AND THAT HE FEELS WELL OVERALL, AT PATIENTS REQUEST, HE WAS GRANTED AN EARLY DISCHARGE FROM DETOX UNIT TODAY SO THAT HE MAY PROCEED ON TO AFTERCARE PLAN - [facility] ([place], [place]).
--- NOTE | 2019-02-03 17:23 | DS ---
[facility] Detox Discharge Summary Admission Date: 01/31/19 Discharge Date: 02/03/19 - History Present History: Alcohol Dependence Additional Comments: PATIENT REPORTS THAT HE FEELS WELL OVERALL AT TIME OF DISCHARGE FROM DETOX UNIT. PATIENT SCHEDULED FOR DISCHARGE FROM DETOX UNIT TODAY. PATIENT WILL GO TO [facility] ([place], [place] FOR AFTERCARE. PATIENT DECLINED OFFER OF MEDICATION PRESCRIPTION FOR HOME MEDICATION AT TIME OF DISCHARGE FROM DETOX, NOTING THAT HE CURRENTLY HAS ADEQUATE SUPPLIES OF ALL PRESCRIBED HOME MEDICATIONS WITH THE BELONGINGS THAT HE BROUGHT WITH HIM AT TIME OF ADMISSION TO DETOX UNIT. PATIENT WAS DISCHARGED FROM DETOX UNIT IN STABLE MEDICAL CONDITION. Pertinent Past History: HTN, Hypercholesterolemia, History Of MD, History Of Kidney Stones, Type II DM, History Of Syncope, History Of Frequent Falls, History of Seizure, Elevated Liver Enzymes. - Physical Exam Results Vital Signs: Vital Signs Temperature 98.1 F 02/03/19 09:22 Pulse Rate 84 02/03/19 09:22 Respiratory Rate 20 02/03/19 09:22 Blood Pressure 164/96 02/03/19 09:22 O2 Sat by Pulse Oximetry (%) Pertinent Admission Physical Exam Findings: WITHDRAWAL SYMPTOMS. Laboratory Tests 01/31/19 01/31/19 01/31/19 10:28 10:55 10:55 WBC 5.1 RBC 3.77 L Hgb 11.4 L Hct 34.0 L MCV 90.1 MCH 30.2 MCHC 33.5 RDW 15.8 Plt Count 177 MPV 7.6 D Sodium 141 Potassium 3.2 L Chloride 107 Carbon Dioxide 24 Anion Gap 10 BUN 21 H Creatinine 0.8 Creat Clearance w eGFR 100.74 POC Glucometer 166 Random Glucose 144 H Calcium 8.5 Total Bilirubin 0.3 AST 101 H ALT 60 Alkaline Phosphatase 107 Total Protein 7.2 Albumin 3.3 L RPR Titer HIV 1&2 Antibody Screen HIV P24 Antigen 01/31/19 01/31/19 01/31/19 10:55 10:55 17:19 WBC RBC Hgb Hct MCV MCH MCHC RDW Plt Count MPV Sodium Potassium Chloride Carbon Dioxide Anion Gap BUN Creatinine Creat Clearance w eGFR POC Glucometer 184 Random Glucose Calcium Total Bilirubin AST ALT Alkaline Phosphatase Total Protein Albumin RPR Titer Nonreactive HIV 1&2 Antibody Screen Negative HIV P24 Antigen Negative 02/01/19 02/01/19 02/02/19 05:39 16:45 05:48 WBC RBC Hgb Hct MCV MCH MCHC RDW Plt Count MPV Sodium Potassium Chloride Carbon Dioxide Anion Gap BUN Creatinine Creat Clearance w eGFR POC Glucometer 140 185 130 Random Glucose Calcium Total Bilirubin AST ALT Alkaline Phosphatase Total Protein Albumin RPR Titer HIV 1&2 Antibody Screen HIV P24 Antigen 02/02/19 02/02/19 02/03/19 07:40 16:35 05:27 WBC RBC Hgb Hct MCV MCH MCHC RDW Plt Count MPV Sodium 137 Potassium 3.6 Chloride 103 Carbon Dioxide 23 Anion Gap 11 BUN 13 Creatinine 0.7 Creat Clearance w eGFR 117.52 POC Glucometer 132 124 Random Glucose 137 H Calcium 8.7 Total Bilirubin 0.7 AST 121 H ALT 79 H Alkaline Phosphatase 87 Total Protein 7.6 Albumin 3.4 RPR Titer HIV 1&2 Antibody Screen HIV P24 Antigen 02/03/19 07:45 WBC RBC Hgb Hct MCV MCH MCHC RDW Plt Count MPV Sodium Potassium 3.7 Chloride Carbon Dioxide Anion Gap BUN Creatinine Creat Clearance w eGFR POC Glucometer Random Glucose Calcium Total Bilirubin AST 149 H ALT 116 H Alkaline Phosphatase Total Protein Albumin RPR Titer HIV 1&2 Antibody Screen HIV P24 Antigen LABS NOTED. - Treatment Hospital Course: Detox Protocol Followed, Detoxed Safely, Responded well, Discharged Condition Good, Rehab Referral Accepted Patient has Accepted a Rehab Referral to: Pending sale to [facility] ([place], [place]). - Medication Discharge Medications: Ambulatory Orders Aspirin [ASA -] 81 mg PO DAILY 05/22/18 Gabapentin 600 mg PO TID 11/17/18 Ranitidine [Zantac -] 150 mg PO DAILY 11/17/18 Atenolol [Tenormin -] 100 mg PO DAILY #30 tablet 12/11/18 Atorvastatin Ca [Lipitor] 20 mg PO DAILY #14 tablet 12/11/18 Metoprolol Tartrate [Lopressor -] 50 mg PO BID #60 tablet 12/11/18 metFORMIN HCL [Glucophage -] 1,000 mg PO BID@0700,1630 #30 tablet 12/11/18 - Diagnosis (1) Elevated liver enzymes Status: Acute (2) Alcohol dependence with uncomplicated withdrawal Status: Acute (3) Frequent falls Status: Acute (4) Syncope Status: Acute Qualifiers: Syncope type: unspecified Qualified Code(s): R55 - Syncope and collapse (5) DM2 (diabetes mellitus, type 2) Status: Chronic Qualifiers: Diabetes mellitus longterm insulin use: without predatory animal exterminator use Diabetes mellitus complication status: without complication Qualified Code(s): E11.9 - Type 2 diabetes mellitus without complications (6) Seizure Status: Chronic - AMA Did Patient Leave Against Medical Advice: No
== END 2019-02-03 11:01 | disposition home or self-care (01) | DRG 775 ==
LOC: YASAS 08:47 → Y3N 10:47
PROVIDERS: ADMIT Surgery; ATTEND Surgery
PROC: HZ2ZZZZ Detoxification Services for Substance Abuse Treatment (ICD-10-PCS; principal; 2019-01-31)
DX: F10.230 Alcohol dependence with withdrawal, uncomplicated (principal); I10 Essential (primary) hypertension; E87.6 Hypokalemia; E11.9 Type 2 diabetes mellitus without complications; Z79.84 Long term (current) use of oral hypoglycemic drugs; R94.5 Abnormal results of liver function studies; M62.830 Muscle spasm of back; R29.6 Repeated falls; R55 Syncope and collapse; Z59.0 Homelessness; Z88.8 Allergy status to other drugs, medicaments and biological substances
CPT/HCPCS: 36415; 80053; 82962; 84132; 84450; 84460; 85027; 86593; 87389

== ENCOUNTER 2019-03-11 13:57 | Inpatient (IN) | payer OTHER ==
[2019-03-11 18:24] VITALS: BMI 33.0
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
[2019-03-11] MEDS ORDERED: chlordiazePOXIDE HCL 25 MG CAPSULE PO PRN (19:36)
[2019-03-11] MEDS ORDERED: MENTHOL/PHENOL 1 EACH UD MM PRN (19:36)
[2019-03-11] MEDS ORDERED: ACETAMINOPHEN 325 MG TABLET (FP) PO PRN ×2 (19:36)
[2019-03-11] MEDS ORDERED: IBUPROFEN 400 MG TABLET (FP) PO PRN (19:36)
[2019-03-11] MEDS ORDERED: MAGNESIUM CITRATE 300 ML BOTTLE PO PRN (19:36)
[2019-03-11] MEDS ORDERED: MAGNESIUM HYDROX 2400MG/30ML ORAL SUSPENSION 30 ML CUP PO PRN (19:36)
[2019-03-11] MEDS ORDERED: hydrOXYzine PAMOATE 25 MG CAPSULE (FP) PO PRN (19:36)
[2019-03-11] MEDS ORDERED: MELATONIN 5 MG TABLETS PO PRN (19:36)
[2019-03-11] MEDS ORDERED: MAG HYDROX/AL HYDROX/SIMETH 30 ML UNIT-DOSE CUP PO PRN (19:36)
[2019-03-11] MEDS ORDERED: BISMUTH SUBSALICYLATE 262 MG/15 ML BTL PO PRN (19:36)
[2019-03-11] MEDS: METOPROLOL TARTRATE 50 MG TABLET (FP) PO SCH (21:22)
[2019-03-11] MEDS: ATORVASTATIN CA 40 MG TABLET (FP) PO SCH (22:13)
[2019-03-11] MEDS: THIAMINE HCL 100 MG TABLET (FP) PO SCH (22:14)
[2019-03-11] MEDS: chlordiazePOXIDE HCL 25 MG CAPSULE PO SCH (22:14)
[2019-03-12] MEDS: chlordiazePOXIDE HCL 25 MG CAPSULE PO SCH ×4 (06:36→22:15)
[2019-03-12] MEDS ORDERED: metFORMIN HCL 500 MG TABLET (FP) PO SCH (07:00)
[2019-03-12] MEDS: metFORMIN HCL 500 MG TABLET (FP) PO SCH ×2 (07:40→17:16)
[2019-03-12] MEDS: INSULIN SLIDING SCALE (NOVOLOG) 1 VIAL SQ SCH ×2 (07:40→17:16)
[2019-03-12 10:10] LABS: HEMATOCRIT 35.8 % (35.4-49); HEMOGLOBIN 12.2 GM/dL (11.7-16.9); MCH 29.6 pg (25.7-33.7); MCHC 34.1 g/dl (32.0-35.9); MEAN CELL VOLUME 86.6 fl (80-96); MEAN PLT VOLUME 6.6 fl (7.5-11.1); PLATELET COUNT 197 K/MM3 (134-434); RBC 4.13 M/mm3 (4.00-5.60); RDW 14.8 % (11.9-15.9); WHITE BLOOD COUNT 3.5 K/mm3 (4.0-10.0)
[2019-03-12 10:27] LABS: ALBUMIN 3.2 g/dl (3.4-5.0); BILIRUBIN,TOTAL 0.7 mg/dL (0.2-1); CREATININE 0.8 mg/dL (0.55-1.3); TOT PROT 7.3 g/dl (6.4-8.2)
[2019-03-12] MEDS: RANITIDINE HCL 150 MG TABLET (FP) PO SCH (10:30)
[2019-03-12] MEDS: PRENATAL VITAMINS W/ FOLIC ACID TABLET (FP) PO SCH (10:30)
[2019-03-12] MEDS: METOPROLOL TARTRATE 50 MG TABLET (FP) PO SCH ×2 (10:30→22:15)
[2019-03-12] MEDS: ASPIRIN 81 MG CHEWABLE TABLETS PO SCH (10:30)
--- NOTE | 2019-03-12 11:11 | PN ---
[facility] CIWA - CIWA Score Nausea/Vomitin-Mild Nausea/No Vomiting Muscle Tremors: 3 Anxiety: 3 Agitation: 3 Paroxysmal Sweats: 1-Minimal Palms Moist Orientation: 1-Uncertain about Date Tacttile Disturbances: 0-None Auditory Disturbances: 0-None Visual Disturbances: 0-None Headache: 2-Mild CIWA-Ar Total Score: 14 [facility] Progress Note (SOAP) Subjective: tremor tired resting on bed hesitating to talk about relapse coping Objective: 03/12/19 11:10 Vital Signs Temperature 96 F L 03/12/19 09:13 Pulse Rate 94 H 03/12/19 10:30 Respiratory Rate 20 03/12/19 10:30 Blood Pressure 138/85 03/12/19 09:13 O2 Sat by Pulse Oximetry (%) Laboratory Last Values WBC 3.5 K/mm3 (4.0-10.0) L 03/12/19 07:00 RBC 4.13 M/mm3 (4.00-5.60) 03/12/19 07:00 Hgb 12.2 GM/dL (11.7-16.9) 03/12/19 07:00 Hct 35.8 % (35.4-49) 03/12/19 07:00 MCV 86.6 fl (80-96) 03/12/19 07:00 MCH 29.6 pg (25.7-33.7) 03/12/19 07:00 MCHC 34.1 g/dl (32.0-35.9) 03/12/19 07:00 RDW 14.8 % (11.9-15.9) 03/12/19 07:00 Plt Count 197 K/MM3 (134-434) 03/12/19 07:00 MPV 6.6 fl (7.5-11.1) L D 03/12/19 07:00 Sodium 135 mmol/L (136-145) L 03/12/19 07:00 Potassium 3.0 mmol/L (3.5-5.1) L 03/12/19 07:00 Chloride 97 mmol/L (98-107) L 03/12/19 07:00 Carbon Dioxide 26 mmol/L (21-32) 03/12/19 07:00 Anion Gap 13 MMOL/L (8-16) 03/12/19 07:00 BUN 11 mg/dL (7-18) 03/12/19 07:00 Creatinine 0.8 mg/dL (0.55-1.3) 03/12/19 07:00 Est GFR (CKD-EPI)AfAm 116.56 03/12/19 07:00 Est GFR (CKD-EPI)NonAf 100.57 03/12/19 07:00 POC Glucometer 133 UNITS (80-120) 03/12/19 05:43 Random Glucose 151 mg/dL (74-106) H 03/12/19 07:00 Calcium 8.0 mg/dL (8.5-10.1) L 03/12/19 07:00 Total Bilirubin 0.7 mg/dL (0.2-1) 03/12/19 07:00 AST 271 U/L (15-37) H 03/12/19 07:00 ALT 128 U/L (13-61) H 03/12/19 07:00 Alkaline Phosphatase 125 U/L (45-117) H 03/12/19 07:00 Total Protein 7.3 g/dl (6.4-8.2) 03/12/19 07:00 Albumin 3.2 g/dl (3.4-5.0) L 03/12/19 07:00 lab noted low K+ ast elevation 03/12/19 11:19 discontinue tylenal and motrin K+ 40 meq x 2 doses repeat K+ Assessment: 03/12/19 11:11 alcohol withdrawal sx Plan: continue detox repeat K+ repeat ast
[2019-03-12] MEDS: POTASSIUM CHLORIDE ORAL LIQUID 20 MEQ/15 ML PO SCH ×2 (14:21→17:15)
--- NOTE | 2019-03-12 17:18 | PN ---
[facility] Progress Note Note: pt has a BP 170/60, pt normally is prescribed atenalol 100mg daily; this medication was ordered first dose now.
[2019-03-12] MEDS ORDERED: PATIENT'S OWN MEDICATION (NON-FORMULARY) (Atenolol [Tenormin -] 100 MG) PO SCH (17:30)
[2019-03-12] MEDS ORDERED: amLODIPine BESYLATE 10 MG TABLET (FP) PO ONE (17:45)
[2019-03-12] MEDS: THIAMINE HCL 100 MG TABLET (FP) PO SCH (22:15)
[2019-03-12] MEDS: ATORVASTATIN CA 40 MG TABLET (FP) PO SCH (22:15)
[2019-03-13] MEDS: chlordiazePOXIDE HCL 25 MG CAPSULE PO SCH ×3 (05:43→17:10)
[2019-03-13] MEDS: INSULIN SLIDING SCALE (NOVOLOG) 1 VIAL SQ SCH ×2 (06:38→17:10)
[2019-03-13] MEDS: metFORMIN HCL 500 MG TABLET (FP) PO SCH ×2 (08:03→17:10)
[2019-03-13] MEDS ORDERED: POTASSIUM CHLORIDE ORAL LIQUID 20 MEQ/15 ML PO SCH (10:00)
[2019-03-13] MEDS: METOPROLOL TARTRATE 50 MG TABLET (FP) PO SCH (10:03)
[2019-03-13] MEDS: ASPIRIN 81 MG CHEWABLE TABLETS PO SCH (10:03)
[2019-03-13] MEDS: PRENATAL VITAMINS W/ FOLIC ACID TABLET (FP) PO SCH (10:03)
[2019-03-13] MEDS: RANITIDINE HCL 150 MG TABLET (FP) PO SCH (10:04)
[2019-03-13 10:09] LABS: POTASSIUM 3.2 mmol/L (3.5-5.1)
[2019-03-13] MEDS ORDERED: METOPROLOL TARTRATE 50 MG TABLET (FP) PO SCH (11:50)
--- NOTE | 2019-03-13 11:54 | PN ---
[facility] CIWA - CIWA Score Nausea/Vomitin-Mild Nausea/No Vomiting Muscle Tremors: 3 Anxiety: 2 Agitation: 3 Paroxysmal Sweats: 1-Minimal Palms Moist Orientation: 1-Uncertain about Date Tacttile Disturbances: 0-None Auditory Disturbances: 0-None Visual Disturbances: 0-None Headache: 0-None Present CIWA-Ar Total Score: 11 [facility] Progress Note (SOAP) Subjective: increase metoprolol to 75 mg po bid mild headache discuss important of medication adherence Objective: 03/13/19 11:56 Vital Signs Temperature 99.1 F 03/13/19 09:20 Pulse Rate 86 03/13/19 09:20 Respiratory Rate 20 03/13/19 09:20 Blood Pressure 116/69 03/13/19 09:20 O2 Sat by Pulse Oximetry (%) Laboratory Last Values WBC 3.5 K/mm3 (4.0-10.0) L 03/12/19 07:00 RBC 4.13 M/mm3 (4.00-5.60) 03/12/19 07:00 Hgb 12.2 GM/dL (11.7-16.9) 03/12/19 07:00 Hct 35.8 % (35.4-49) 03/12/19 07:00 MCV 86.6 fl (80-96) 03/12/19 07:00 MCH 29.6 pg (25.7-33.7) 03/12/19 07:00 MCHC 34.1 g/dl (32.0-35.9) 03/12/19 07:00 RDW 14.8 % (11.9-15.9) 03/12/19 07:00 Plt Count 197 K/MM3 (134-434) 03/12/19 07:00 MPV 6.6 fl (7.5-11.1) L D 03/12/19 07:00 Sodium 135 mmol/L (136-145) L 03/12/19 07:00 Potassium 3.2 mmol/L (3.5-5.1) L 03/13/19 07:30 Chloride 97 mmol/L (98-107) L 03/12/19 07:00 Carbon Dioxide 26 mmol/L (21-32) 03/12/19 07:00 Anion Gap 13 MMOL/L (8-16) 03/12/19 07:00 BUN 11 mg/dL (7-18) 03/12/19 07:00 Creatinine 0.8 mg/dL (0.55-1.3) 03/12/19 07:00 Est GFR (CKD-EPI)AfAm 116.56 03/12/19 07:00 Est GFR (CKD-EPI)NonAf 100.57 03/12/19 07:00 POC Glucometer 175 UNITS (80-120) 03/13/19 05:43 Random Glucose 151 mg/dL (74-106) H 03/12/19 07:00 Calcium 8.0 mg/dL (8.5-10.1) L 03/12/19 07:00 Total Bilirubin 0.7 mg/dL (0.2-1) 03/12/19 07:00 AST 191 U/L (15-37) H 03/13/19 07:30 ALT 128 U/L (13-61) H 03/12/19 07:00 Alkaline Phosphatase 125 U/L (45-117) H 03/12/19 07:00 Total Protein 7.3 g/dl (6.4-8.2) 03/12/19 07:00 Albumin 3.2 g/dl (3.4-5.0) L 03/12/19 07:00 RPR Titer Nonreactive (NONREACTIVE) 03/12/19 07:00 lab noted low K+ ast elevation Assessment: 03/13/19 12:00 alcohol withdrawal sx discuss alcohol misuse related cardiovascular complications Plan: continue detox
[2019-03-13] MEDS ORDERED: METOPROLOL TARTRATE 25 MG TABLET (FP) PO ONE (12:20)
[2019-03-13] MEDS: POTASSIUM CHLORIDE ORAL LIQUID 20 MEQ/15 ML PO SCH ×2 (13:47→17:11)
[2019-03-13] MEDS: THIAMINE HCL 100 MG TABLET (FP) PO SCH (22:11)
[2019-03-13] MEDS: METOPROLOL TARTRATE 25 MG TABLET (FP) PO SCH (22:11)
[2019-03-13] MEDS: ATORVASTATIN CA 40 MG TABLET (FP) PO SCH (22:11)
[2019-03-13] MEDS: chlordiazePOXIDE HCL 10 MG CAPSULE PO SCH (22:12)
[2019-03-13] MEDS ORDERED: chlordiazePOXIDE HCL 10 MG CAPSULE PO PRN (23:00)
[2019-03-14] MEDS: chlordiazePOXIDE HCL 10 MG CAPSULE PO SCH ×2 (05:46→10:24)
[2019-03-14] MEDS: metFORMIN HCL 500 MG TABLET (FP) PO SCH (06:25)
[2019-03-14] MEDS: INSULIN SLIDING SCALE (NOVOLOG) 1 VIAL SQ SCH (06:41)
[2019-03-14] MEDS ORDERED: POTASSIUM CHLORIDE TABS 20 MEQ TABLET.ER (FP) PO SCH (10:00)
[2019-03-14] MEDS: METOPROLOL TARTRATE 25 MG TABLET (FP) PO SCH (10:23)
[2019-03-14] MEDS: ASPIRIN 81 MG CHEWABLE TABLETS PO SCH (10:23)
[2019-03-14] MEDS: PRENATAL VITAMINS W/ FOLIC ACID TABLET (FP) PO SCH (10:23)
[2019-03-14] MEDS: RANITIDINE HCL 150 MG TABLET (FP) PO SCH (10:24)
[2019-03-14 12:11] LABS: POTASSIUM 3.5 mmol/L (3.5-5.1)
--- NOTE | 2019-03-14 12:41 | PN ---
[facility] CIWA - CIWA Score Nausea/Vomitin-No Nausea/No Vomiting Muscle Tremors: 1-None Visible, but [place] Anxiety: 1-Mildly Anxious Agitation: 1-Slight > Activity Paroxysmal Sweats: No Perspiration Orientation: 0-Oriented Tacttile Disturbances: 1-Very Mild Itch/Numbness Auditory Disturbances: 0-None Visual Disturbances: 0-None Headache: 1-Very Mild CIWA-Ar Total Score: 5 [facility] Progress Note (SOAP) Subjective: alert,irritable,anxious,interrupted sleep, Objective: 03/14/19 12:40 Vital Signs Temperature 97.1 F L 03/14/19 09:41 Pulse Rate 90 03/14/19 09:41 Respiratory Rate 20 03/14/19 09:41 Blood Pressure 140/91 03/14/19 09:41 O2 Sat by Pulse Oximetry (%) Assessment: 03/14/19 12:40 withdrawal symptom Plan: continue detox,discharge in am
[2019-03-14 13:04] VITALS: BP 137/89; PULSE 85; TEMP 98.9
--- NOTE | 2019-03-14 14:44 | PN ---
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
--- NOTE | 2019-03-14 14:45 | DS ---
[facility] Detox Discharge Summary Admission Date: 03/11/19 Discharge Date: 03/14/19 - History Present History: Alcohol Dependence Additional Comments: patient is stable for discharge today Pertinent Past History: hypertension gerd - Physical Exam Results Vital Signs: Vital Signs Temperature 98.9 F 03/14/19 13:04 Pulse Rate 85 03/14/19 13:04 Respiratory Rate 18 03/14/19 13:04 Blood Pressure 137/89 03/14/19 13:04 O2 Sat by Pulse Oximetry (%) Pertinent Admission Physical Exam Findings: withdrawal signs and symptom - Treatment Hospital Course: Detox Protocol Followed, Detoxed Safely, Responded well, Discharged Condition Good Patient has Accepted a Rehab Referral to: declined - Medication Discharge Medications: Ambulatory Orders Aspirin [ASA -] 81 mg PO DAILY 05/22/18 Gabapentin 600 mg PO TID 11/17/18 Ranitidine [Zantac -] 150 mg PO DAILY 11/17/18 Atenolol [Tenormin -] 100 mg PO DAILY #30 tablet 12/11/18 Atorvastatin Ca [Lipitor] 20 mg PO DAILY #14 tablet 12/11/18 Metoprolol Tartrate [Lopressor -] 50 mg PO BID #60 tablet 12/11/18 metFORMIN HCL [Glucophage -] 1,000 mg PO BID@0700,1630 #30 tablet 12/11/18 - Diagnosis (1) Alcohol dependence with uncomplicated withdrawal Current Visit: Yes Status: Acute (2) DM2 (diabetes mellitus, type 2) Current Visit: No Status: Chronic Qualifiers: Diabetes mellitus manager terminal insulin use: without halfway use Diabetes mellitus complication status: without complication Qualified Code(s): E11.9 - Type 2 diabetes mellitus without complications (3) Hypertension Current Visit: No Status: Chronic Qualifiers: Hypertension type: essential hypertension Qualified Code(s): I10 - Essential (primary) hypertension (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
--- NOTE | 2019-03-14 14:58 | PN ---
[facility] Progress Note Note: patient has his own pmd dr UGALDE ,has his medication and will see his PMD on Sun03/17/19for follow up
[2019-03-14] MEDS ORDERED: metFORMIN HCL 500 MG TABLET (FP) PO SCH (16:30)
[2019-03-14] MEDS ORDERED: chlordiazePOXIDE HCL 10 MG CAPSULE PO SCH (23:00)
== END 2019-03-14 15:22 | disposition home or self-care (01) | DRG 775 ==
LOC: YASAS 13:57 → Y3N 20:24
PROVIDERS: ADMIT Surgery; ATTEND Surgery
PROC: HZ2ZZZZ Detoxification Services for Substance Abuse Treatment (ICD-10-PCS; principal; 2019-03-11)
DX: F10.230 Alcohol dependence with withdrawal, uncomplicated (principal); F10.220 Alcohol dependence with intoxication, uncomplicated; F60.1 Schizoid personality disorder; I10 Essential (primary) hypertension; E11.9 Type 2 diabetes mellitus without complications; R74.0 Nonspecific elevation of levels of transaminase and lactic acid dehydrogenase [LDH]; E78.00 Pure hypercholesterolemia, unspecified; R00.0 Tachycardia, unspecified; Z59.0 Homelessness
CPT/HCPCS: 36415; 80053; 82962; 84132; 84450; 85027; 86593

== ENCOUNTER 2019-04-15 20:52 | Inpatient (IN) | payer OTHER ==
[2019-04-15 23:47] VITALS: BMI 33.0
--- NOTE | 2019-04-16 06:45 | HP ---
CIWA Score Nausea/Vomitin-Mild Nausea/No Vomiting Muscle Tremors: 4-Moderate,w/Arms Extend Anxiety: 3 Agitation: 3 Paroxysmal Sweats: No Perspiration Orientation: 2-Disoriented Date<2 days Tacttile Disturbances: 0-None Auditory Disturbances: 0-None Visual Disturbances: 0-None Headache: 3-Moderate CIWA-Ar Total Score: 16 - Admission Criteria OASAS Guidelines: Admission for Medically Managed Detox: Requires at least one of the followin. CIWA greater than 12 2. Seizures within the past 24 hours 3. Delirium tremens within the past 24 hours 4. Hallucinations within the past 24 hours 5. Acute intervention needed for co occurring medical disorder 6. Acute intervention needed for co occurring psychiatric disorder 7. Severe withdrawal that cannot be handled at a lower level of care (continued vomiting, continued diarrhea, abnormal vital signs) requiring intravenous medication and/or fluids 8. Admission ROS [facility] Chief Complaint: Alcohol withdrawal symptoms Allergies/Adverse Reactions: Allergies Allergy/AdvReac Type Severity Reaction Status Date / Time RASHAD Inhibitors Allergy Severe Swelling Verified 04/15/19 23:32 lisinopril Allergy Severe Swelling Verified 04/15/19 23:32 History of Present Illness: 54 years old male with a long history of alcohol dependence is seeking admission to detox. Patient has been in detox multiple times and reports insignificant period of sobriety. He has medical history of DM Type 2, hypertension and hyperlipidemia. He denies suicidal ideation at this time Exam Limitations: No Limitations - Ebola screening Have you traveled outside of the country in the last 21 days: No (N) Have you had contact with anyone from an Ebola affected area: No Do you have a fever: No - Review of Systems Constitutional: Chills, Loss of Appetite, Malaise, Weakness EENT: reports: Nose Congestion Respiratory: reports: No Symptoms reported Cardiac: reports: No Symptoms Reported GI: reports: Nausea, Poor Appetite, Poor Fluid Intake, Vomiting, Abdominal cramping : reports: No Symptoms Reported Musculoskeletal: reports: Back Pain, Muscle Pain Integumentary: reports: Dryness, Flushing Neuro: reports: Tremors Endocrine: reports: No Symptoms Reported Hematology: reports: No Symptoms Reported Psychiatric: reports: Anxious Other Systems: Reviewed and Negative Patient History - Patient Medical History Hx Anemia: No Hx Asthma: No Hx Chronic Obstructive Pulmonary Disease (COPD): No Hx Cancer: No Hx Cardiac Disorders: No Hx Congestive Heart Failure: No Hx Hypertension: Yes (Atenonol and Norvasc) Hx Hypercholesterolemia: Yes (Gemfibra) Hx Pacemaker: No HX Cerebrovascular Accident: No Hx Seizures: No Hx Dementia: No Hx Diabetes: Yes (DM Type 2 - Metformin) Hx Gastrointestinal Disorders: No Hx Liver Disease: No Hx Genitourinary Disorders: No Hx Sexually Transmitted Disorders: No Hx Renal Disease (ESRD): No Hx Thyroid Disease: No Hx Human Immunodeficiency Virus (HIV): No (Negative 2018 in 09/01) Hx Hepatitis C: No Hx Depression: No Hx Suicide Attempt: No Hx Bipolar Disorder: No Hx Schizophrenia: No - Patient Surgical History Past Surgical History: Yes Hx Neurologic Surgery: No Hx Cataract Extraction: No Hx Cardiac Surgery: No Hx Lung Surgery: No Hx Breast Surgery: No Hx Breast Biopsy: No Hx Abdominal Surgery: No Hx Appendectomy: No Hx Cholecystectomy: No Hx Genitourinary Surgery: Yes (left kidney stone removed in 2015) Hx Section: No Hx Orthopedic Surgery: No Other Surgical History: left kidney stone removed 11/2015 Anesthesia Reaction: No - PPD History Results: cxray(-)04/29/18 - Reproductive History Patient is a Female of Child Bearing Age (11 -55 yrs old): No (male) - Smoking Cessation Smoking history: Never smoked Have you smoked in the past 12 months: No Aproximately how many cigarettes per day: 1 If you are a former smoker, when did you quit?: at age 19 Cigars Per Day: 1 Hx Chewing Tobacco Use: No - Substance & Tx. History Hx Alcohol Use: Yes Hx Substance Use: No Substance Use Type: Alcohol Hx Substance Use Treatment: Yes ([facility]) - Substances abused Alcohol Substance route: Oral Frequency: Daily Amount used: 1 PINT VODKA + 2PACK BEER Age of first use: 18 Date of last use: 04/15/19 Family Disease History - Family Disease History Family Disease History: Heart Disease: Mother (HTN), Other: Father (Alcohol), Mother, Brother (Alcohol) Admission Physical Exam [facility] - Vital Signs Vital Signs: Vital Signs - 24 hr 04/15/19 23:32 Temperature 97.8 F Pulse Rate 101 H Respiratory 16 Rate Blood Pressure 138/79 - Physical General Appearance: Yes: Moderate Distress, Tremorous, Anxious HEENTM: Yes: Within Normal Limits, Normal Voice Respiratory: Yes: Normal Breath Sounds, Decreased Breath Sounds, No Respiratory Distress, No Accessory Muscle Use Neck: Yes: Supple Breast: Yes: Breast Exam Deferred Cardiology: Yes: Tachycardia Abdominal: Yes: Normal Bowel Sounds Genitourinary: Yes: Within Normal Limits Back: Yes: Normal Inspection Musculoskeletal: Yes: Back pain, Muscle Pain Extremities: Yes: Tremors Neurological: Yes: Normal Mood/Affect Integumentary: Yes: Warm Lymphatic: Yes: Within Normal Limits Cleared for Admission S - Detox or Rehab [facility] Level of Care: Medically Managed Detox Regimen/Protocol: Librium Breathalyzer - Breathalyzer Breathalyzer: 0.074 Urine Drug Screen - Test Device Lot number: [id number] Expiration date: 12/12/20 - Control Is test valid?: Yes - Results Drug screen NEGATIVE: No Urine drug screen results: BZO-Benzodiazepines Inpatient Rehab Admission - Rehab Decision to Admit Inpatient rehab admission?: No
[2019-04-16] MEDS ORDERED: chlordiazePOXIDE HCL 25 MG CAPSULE PO PRN (06:53)
[2019-04-16] MEDS: metFORMIN HCL 500 MG TABLET (FP) PO SCH ×2 (07:39→19:18)
[2019-04-16] MEDS: chlordiazePOXIDE HCL 25 MG CAPSULE PO SCH ×3 (07:41→19:19)
[2019-04-16] MEDS: GABAPENTIN 300 MG CAPSULE (FP) PO SCH ×3 (08:00→23:47)
[2019-04-16] MEDS ORDERED: ASPIRIN 81 MG CHEWABLE TABLETS PO SCH (10:00)
[2019-04-16] MEDS ORDERED: ATORVASTATIN CA 20 MG TABLET (FP) PO SCH (10:00)
[2019-04-16] MEDS ORDERED: PATIENT'S OWN MEDICATION (NON-FORMULARY) (Atenolol [Tenormin -] 100 MG) PO SCH (10:00)
--- NOTE | 2019-04-16 11:00 | PN ---
[facility] CIWA - CIWA Score Nausea/Vomitin-No Nausea/No Vomiting Muscle Tremors: 2 Anxiety: 2 Agitation: 0-Normal Activity Paroxysmal Sweats: 2 Orientation: 2-Disoriented Date<2 days Tacttile Disturbances: 2-Mild Itch/Numbness/Burn Auditory Disturbances: 0-None Visual Disturbances: 2-Mild Sensitivity Headache: 0-None Present CIWA-Ar Total Score: 12 S Progress Note (SOAP) Subjective: Diarrhea, Stomach Cramping, Fatigue, Anxious. Objective: PATIENT A & O X 2 (UNCERTAIN ABOUT CURRENT DAY / DATE). PATIENT OBSERVED AMBULATING ON UNIT UNASSISTED. IN NO ACUTE DISTRESS. 04/16/19 10:54 Vital Signs Temperature 97.7 F 04/16/19 09:09 Pulse Rate 96 H 04/16/19 10:30 Respiratory Rate 16 04/16/19 09:09 Blood Pressure 122/73 04/16/19 09:09 O2 Sat by Pulse Oximetry (%) Laboratory Tests 04/16/19 07:39 POC Glucometer 145 ADMISSION LAB RESULTS PENDING. Assessment: 04/16/19 10:55 WITHDRAWAL SYMPTOMS. Plan: CONTINUE DETOX. INCREASE DAILY PO WATER INTAKE. PER MONIKA VAZQUEZ AT PATIENT'S PHARMACY ([facility], [place]), PATIENT IS CURRENTLY PRESCRIBED ATENOLOL (100 MG PO DAILY), METOPROLOL TARTRATE (50 MG PO BID), AND AMLODIPINE (10 MG PO DAILY) ON AN OUTPATIENT BASIS FOR TREATMENT OF HYPERTENSION. PER MONIKA VAZQUEZ, PATIENT HAS BEEN PRESCRIBED ALL THREE OF THE AFOREMENTIONED MEDICATIONS ON THE SAME DATES BY THE SAME MEDICAL PROVIDER FOR AT LEAST THE LAST THREE MONTHS. DUE TO FACT THAT METOPROLOL TARTRATE AND ATENOLOL ARE IN SAME ANTI-HYPERTENSIVE CATEGORY, PER RECOMMENDATION OF [facility]IST MR. BROOKS, ATENOLOL TO BE HELD FOR TIME BEING. WILL CONTINUE TO MONITOR PATIENT'S BLOOD PRESSURE AND MAKE SUBSEQUENT MODIFICATIONS ACCORDINGLY.
[2019-04-16] MEDS: RANITIDINE HCL 150 MG TABLET (FP) PO SCH ×2 (11:33→23:47)
[2019-04-16] MEDS: METOPROLOL TARTRATE 50 MG TABLET (FP) PO SCH ×2 (11:33→23:46)
[2019-04-16 14:50] LABS: BASO % 1.2 % (0-2.0); EOS % 0.6 % (0-4.5); HEMATOCRIT 34.7 % (35.4-49); HEMOGLOBIN 12.1 GM/dL (11.7-16.9); MCH 30.8 pg (25.7-33.7); MEAN CELL VOLUME 87.9 fl (80-96); MEAN PLT VOLUME 6.8 fl (7.5-11.1); MONO % 4.7 % (3.8-10.2); NEUT % 58.5 % (42.8-82.8); PLATELET COUNT 272 K/MM3 (134-434); RBC 3.94 M/mm3 (4.00-5.60); RDW 15.6 % (11.9-15.9); WHITE BLOOD COUNT 5.1 K/mm3 (4.0-10.0)
[2019-04-16 15:28] LABS: ALBUMIN 2.8 g/dl (3.4-5.0); ALK PHOS 109 U/L (45-117); ANION GAP 11 MMOL/L (8-16); BILIRUBIN,TOTAL 0.5 mg/dL (0.2-1); BLOOD UREA NITROGEN 16.2 mg/dL (7-18); CALCIUM 7.3 mg/dL (8.5-10.1); CHLORIDE 99 mmol/L (98-107); CO2 22 mmol/L (21-32); CREATININE 0.9 mg/dL (0.55-1.3); GLUCOSE,RANDOM 222 mg/dL (74-106); POTASSIUM 3.1 mmol/L (3.5-5.1); SODIUM 132 mmol/L (136-145); TOT PROT 7.2 g/dl (6.4-8.2)
[2019-04-16 21:44] VITALS: TEMP 99.7
[2019-04-17] MEDS: chlordiazePOXIDE HCL 25 MG CAPSULE PO SCH (00:12)
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
[2019-04-17 01:05] VITALS: BP 149/96; PULSE 91
[2019-04-17] MEDS ORDERED: chlordiazePOXIDE HCL 25 MG CAPSULE PO SCH (05:00)
[2019-04-17] MEDS: metFORMIN HCL 500 MG TABLET (FP) PO SCH (06:22)
[2019-04-17] MEDS: GABAPENTIN 300 MG CAPSULE (FP) PO SCH (06:22)
[2019-04-18] MEDS ORDERED: chlordiazePOXIDE HCL 10 MG CAPSULE PO PRN
[2019-04-18] MEDS ORDERED: chlordiazePOXIDE HCL 10 MG CAPSULE PO SCH (05:00)
[2019-04-19] MEDS ORDERED: chlordiazePOXIDE HCL 10 MG CAPSULE PO SCH (05:00)
[2019-04-20] MEDS ORDERED: chlordiazePOXIDE HCL 10 MG CAPSULE PO ONE (05:00)
== END 2019-04-17 07:44 | disposition short-term general hospital (02) | DRG 775 ==
LOC: YASAS 20:52 → Y3N 04-16 07:00
PROVIDERS: ADMIT Surgery; ATTEND Surgery
PROC: HZ2ZZZZ Detoxification Services for Substance Abuse Treatment (ICD-10-PCS; principal; 2019-04-16)
DX: F10.230 Alcohol dependence with withdrawal, uncomplicated (principal); F13.20 Sedative, hypnotic or anxiolytic dependence, uncomplicated; G40.89 Other seizures; I10 Essential (primary) hypertension; E78.5 Hyperlipidemia, unspecified; E11.9 Type 2 diabetes mellitus without complications; Z79.84 Long term (current) use of oral hypoglycemic drugs; Z87.442 Personal history of urinary calculi; Z59.0 Homelessness
CPT/HCPCS: 36415; 80053; 82962; 85025

== ENCOUNTER 2019-04-17 00:52 | Inpatient (IN) | payer OTHER ==
--- NOTE | 2019-04-17 01:30 | PDOC ---
History of Present Illness - General Chief Complaint: Seizure Stated Complaint: SEIZURES - History of Present Illness Initial Comments: 04/17/19 01:16 54 yo M h/o HTN,DM, Seizure disorder, MDD, Etoh dependence, seizure disorder who p/w convulsions. Patient does not recall convulsions. EMS reports that patient with tonic-clonic whole body convulsions for 45 seconds en route to hospital. Received 5 Versed en route. [facility] reports patient with witnessed convulsion in facility less than one minute at rest. No fall, or LOC. POC GLU ~ 161. Pt. difficult to obtain history from patient. Patient somnolent, partially responsive, and difficult to arouse. He reports last alcoholic beverage x 2 days BALER. Patient reports typically drinks 1 pint of liquor a day. On home Librium 25 mg. Received Librium 04-16-19. Patient denies QUEZADA, vision change, palpitations, cough, wheezing, orthopena, PND , leg swelling/pain, N/V, F,C, CP, SOB, urinary complaints, hematuria, BPR, abdominal pain, diarrhea, constipation, lightheadedness, weakness, sensory changes. PMHx: as noted above ROS: as noted SHx: Denies IVDA Allergies:RASHAD-I Past History - Past Medical History Allergies/Adverse Reactions: Allergies Allergy/AdvReac Type Severity Reaction Status Date / Time RASHAD Inhibitors Allergy Severe Swelling Verified 04/17/19 01:04 lisinopril Allergy Severe Swelling Verified 04/17/19 01:04 Home Medications: Ambulatory Orders Atorvastatin Ca [Lipitor] 20 mg PO DAILY #14 tablet 12/11/18 metFORMIN HCL [Glucophage -] 1,000 mg PO BID@0700,1630 #30 tablet 12/11/18 Aspirin [ASA -] 81 mg PO DAILY #30 tab.chew 03/14/19 Metoprolol Tartrate [Lopressor -] 50 mg PO BID #60 tablet 03/14/19 Ranitidine [Zantac -] 150 mg PO BID 04/16/19 Gabapentin [Neurontin] 600 mg PO TID 04/17/19 Anemia: No Asthma: No Cancer: No Cardiac Disorders: No CVA: No COPD: No CHF: No Dementia: No Diabetes: Yes GI Disorders: No Disorders: No HTN: Yes Hypercholesterolemia: Yes (Gemfibra) Kidney Stones: No Liver Disease: No Psychiatric Problems: Yes (etoh/) Seizures: No Thyroid Disease: No - Surgical History Abdominal Surgery: No Appendectomy: No Cardiac Surgery: No Cholecystectomy: No Lung Surgery: No Neurologic Surgery: No Orthopedic Surgery: No - Reproductive History Testicular Surgery: No - Immunization History Immunization Up to Date: No - Suicide/Smoking/Psychosocial Hx Smoking History: Unknown if ever smoked Have you smoked in the past 12 months: No Number of Cigarettes Smoked Daily: 1 If you are a former smoker, when did you quit?: at age 19 Cigars Per Day: 1 Information on smoking cessation initiated: No 'Breaking Loose' booklet given: 01/31/19 Hx Alcohol Use: Yes Drug/Substance Use Hx: Yes Substance Use Type: Alcohol Hx Substance Use Treatment: No Review of Systems - Review of Systems Comments:: 04/17/19 01:47 GENERAL/CONSTITUTIONAL: No fever or chills. No weakness. HEAD, EYES, EARS, NOSE AND THROAT: No change in vision. No ear pain or discharge. No sore throat. CARDIOVASCULAR: No chest pain or shortness of breath RESPIRATORY: No cough, wheezing, or hemoptysis. GASTROINTESTINAL: No nausea, vomiting, diarrhea or constipation. GENITOURINARY: No dysuria, frequency, or change in urination. MUSCULOSKELETAL: No joint or muscle swelling or pain. No neck or back pain. SKIN: No rash NEUROLOGIC: + Convulsions. No headache, vertigo, loss of consciousness, or change in strength/sensation. ENDOCRINE: No increased thirst. No abnormal weight change HEMATOLOGIC/LYMPHATIC: No anemia, easy bleeding, or history of blood clots. ALLERGIC/IMMUNOLOGIC: No hives or skin allergy. *Physical Exam - Vital Signs Last Vital Signs Temp Pulse Resp BP Pulse Ox 98.7 F 94 H 18 167/104 H 96 04/17/19 01:04 04/17/19 01:04 04/17/19 01:04 04/17/19 01:04 04/17/19 01:04 - Physical Exam Comments: 04/17/19 01:48 GENERAL: Awake, alert, and fully oriented, in no acute distress HEAD: No signs of trauma, normocephalic, atraumatic EYES: PERRLA, EOMI, sclera anicteric, conjunctiva clear ENT: Auricles normal inspection, hearing grossly normal, nares patent, oropharynx clear without exudates. Moist mucosa NECK: Normal ROM, supple, no lymphadenopathy, JVD, or masses LUNGS: No distress, speaks full sentences, clear to auscultation bilaterally HEART: Regular rate and rhythm, normal S1 and S2, no murmurs, rubs or gallops, peripheral pulses normal and equal bilaterally. ABDOMEN: Soft, nontender, normoactive bowel sounds. No guarding, no rebound. No masses EXTREMITIES : Normal inspection, Normal range of motion, no edema. No clubbing or cyanosis. NEUROLOGICAL: Cranial nerves II through XII grossly intact. Normal speech, normal gait, no focal sensorimotor deficits SKIN: Warm, Dry, normal turgor, no rashes or lesions noted ED Treatment Course - LABORATORY CBC & Chemistry Diagram: 04/17/19 01:45 04/17/19 01:45 - RADIOLOGY Radiology Studies Ordered: Category Date Time Status CXRPORT [CHEST X-RAY PORTABLE*] [RAD] Stat Radiology 04/17/19 01:14 Ordered Medical Decision Making - Medical Decision Making 04/17/19 01:45 54 yo M h/o HTN,DM, Seizure disorder, MDD, Etoh dependence, seizure disorder who p/w witnessed tonic-clonic convulsions. BP 167/104, HR 94, vitals otherwise wnl, AF, A&Ox3. Physical exam unremarkable. Will consider DT, Etoh withdrawal. Will assess for hypoglycemia, electrolyte abnml, metabolic and toxic derangements, acid-base disturbances, infection. 04/17/19 01:48 Ed Course: 04/17/19 01:51 Patient with witnessed seizure in ED IV Ativan 2 mg EKG: NSR with LVH. Asbent CAROLINE, STD. Nml interval duration and axis. 04/17/19 04:15 Laboratory Tests 04/17/19 04/17/19 04/17/19 01:43 01:45 01:45 WBC 9.6 Hgb 13.8 Hct 40.7 D Plt Count 243 Sodium Potassium Lactic Acid 10.6 H* Creatine Kinase 716 H Troponin I < 0.02 Urine Color Urine Appearance Urine Blood Urine Nitrite Urine RBC (Auto) 04/17/19 04/17/19 01:45 02:00 WBC Hgb Hct Plt Count Sodium 135 L Potassium 5.6 H Lactic Acid Creatine Kinase Troponin I Urine Color Yellow Urine Appearance Cloudy Urine Blood 2+ H Urine Nitrite Negative Urine RBC (Auto) 3 04/17/19 05:36 CTH: Unremarkable Patient endorsed to medicine Dr. Avila Admit tele/inpt *DC/Admit/Observation/Transfer Diagnosis at time of Disposition: Alcohol withdrawal Qualifiers: Complication of substance-induced condition: with unspecified complication Qualified Code(s): F10.239 - Alcohol dependence with withdrawal, unspecified - Discharge Dispostion Condition at time of disposition: Stable Decision to Admit order: Yes - Referrals - Patient Instructions - Post Discharge Activity
--- NOTE | 2019-04-17 01:30 | PDOC ---
Attending Attestation - Resident Resident Name: Wesly Story - ED Attending Attestation I have performed the following: I have examined & evaluated the patient, The case was reviewed & discussed with the resident, I agree w/resident's findings & plan - HPI HPI: 04/17/19 01:53 54-year-old male with seizure activity while undergoing alcohol detox - Physicial Exam PE: 04/17/19 01:56 agree with resident exam - Medical Decision Making 04/17/19 01:57 54-year-old male with seizure activity, patient had a total of 3 witnessed seizures this evening Versed 5 mg IV given and route by EMS Ativan 2 mg IV given in the emergency department Patient is currently without seizure activity and resting comfortably, he is currently maintaining his airway Plan for labs and admission to ICU for multiple alcohol withdrawal seizures and impending DTs
[2019-04-17] MEDS ORDERED: LORazepam 2 MG/ML SDV VIAL ONE ×2 (01:37→02:31)
[2019-04-17] MEDS ORDERED: chlordiazePOXIDE HCL 25 MG CAPSULE PO ONE (01:37)
[2019-04-17 01:52] LABS: BASO % 1.2 % (0-2.0); EOS % 0.2 % (0-4.5); HEMATOCRIT 40.7 % (35.4-49); HEMOGLOBIN 13.8 GM/dL (11.7-16.9); MCH 30.2 pg (25.7-33.7); MCHC 33.9 g/dl (32.0-35.9); MEAN PLT VOLUME 6.6 fl (7.5-11.1); MONO % 4.3 % (3.8-10.2); NEUT % 65.3 % (42.8-82.8); PLATELET COUNT 243 K/MM3 (134-434); RBC 4.57 M/mm3 (4.00-5.60); RDW 15.6 % (11.9-15.9); WHITE BLOOD COUNT 9.6 K/mm3 (4.0-10.0)
[2019-04-17 02:19] LABS: EPI CELLS 0.5 /HPF (0-5/HPF); HYALINE CASTS 22 /lpf (0-8); PH,URINE 5.5 (5.0-8.0); URINE APPEARANCE CLOUDY; URINE BACTERIA 1467.6 /hpf (NEGATIVE); URINE BILIRUBIN NEGATIVE (NEGATIVE); URINE COLOR YELLOW; URINE GLUCOSE (UA) NEGATIVE (NEGATIVE); URINE KETONE NEGATIVE (NEGATIVE); URINE LEUK ESTERASE TRACE (NEGATIVE); URINE NITRITE NEGATIVE (NEGATIVE); URINE PROTEIN 4+ (NEGATIVE); URINE RBC 3 /hpf (0-4); URINE UROBILINOGEN 0.2 mg/dL (0.2-1.0); URINE WBC 92 /hpf (0-5)
[2019-04-17 02:42] LABS: MAGNESIUM 1.3 mg/dL (1.8-2.4)
[2019-04-17 02:44] LABS: ALBUMIN 3.3 g/dl (3.4-5.0); ALK PHOS 124 U/L (45-117); ANION GAP 11 MMOL/L (8-16); BILIRUBIN,TOTAL 0.6 mg/dL (0.2-1); BLOOD UREA NITROGEN 11.9 mg/dL (7-18); CALCIUM 8.4 mg/dL (8.5-10.1); CHLORIDE 99 mmol/L (98-107); CO2 26 mmol/L (21-32); CREATININE 1.3 mg/dL (0.55-1.3); GLUCOSE,RANDOM 177 mg/dL (74-106); POTASSIUM 5.6 mmol/L (3.5-5.1); SGOT/AST 162 U/L (15-37); SODIUM 135 mmol/L (136-145); TOT PROT 8.2 g/dl (6.4-8.2)
[2019-04-17] MEDS ORDERED: SODIUM CHLORIDE 1,000 ML IV STA ×2 (03:03→06:24)
[2019-04-17 03:36] LABS: SGPT/ALT 92 U/L (13-61)
[2019-04-17 03:55] LABS: INR 1.17 (0.83-1.09); PROTHROMBIN TIME (PATIENT) 13.8 SEC (9.7-13.0)
--- NOTE | 2019-04-17 04:23 | PN ---
Progress Note (short form) - Note Progress Note: ICU Resident HPI: 54yo M with h/o of HTN, DM, CAD, h/o nephrolithiasis and alcohol abuse who presents from [facility] today after witnessed seizure. Pt was noted to seize for roughly 1-2 minutes at facility, once more in EMS vehicle and during his ER visit. Pt received Versed 5mg once en route to ER which controlled his seizure and received another regiment of Ativan for his seizing in the ER which controlled his regiment. During his episodes pt was noted to only decrease saturation to mid 80's which resolved once seizure was under control. Pt currently is slightly hazy, however he is oriented x3 and verbal at this point. Pt reports he has had DT's in the past when he stopped drinking. He reports drinking a total of 1 pint of vodka daily for many years and recently stopped (~ 2-3 days prior) because he ran out of money for his vodka. Pt currently denies any blurry vision, headache, shortness of breath, chest pain, palpitations, abdominal pain, dysuria, polyuria. No tactile, auditory, or visual disturbances at this time. PE: VS at bedside: SpO2 100%, HR 80's, BP 170/90 GEN: alert, oriented x3, NAD HEENT: NC/AT, EOMI, SADIQ, sclera anicteric, no mucosal jaundice seen, dry-to- moist mucosa, no thrush NECK: No JVD noted, supple LUNGS: CTA b/l with good inspiratory effort without evidence of wheezes or crackles. Currently RA SpO2 100% CARDIAC: RRR, no murmurs appreciated ABDOMEN: Soft, nondistended, nontender, no guarding, hepatomegaly ~2cm past rib angle, no hepatic nodularity appreciated. No asterixis EXT: 2+ DP pulses b/l, no edema NEURO: CN II-XII currently intact. Strength 5/5 b/l throughout with sensation intact. No dysarthria, no dysmetria, no dysdiadocokinesia, normal speech, gait not assessed at this time. No tremulousness noted CIWA 2 A/P: Delerium tremens 2/2 to alcohol withdrawal HTN Transaminitis Lactic Acidosis Elevated CK Hyperkalemia HypoNatremia HypoMg Hypoalbuminemia --Given pt is controlled and protecting his airway at this time; would recommend monitoring telemetry vs. med/surg floor. --If pt continues to seize would likely intubate and start on Versed gtt due to severe DT's minimally controllable with IVP benzodiazepines --Pt noted to be on Librium outside of hospital, however would recommend switching to Ativan protocol given transaminitis and preclivity to seize --Lactic acidosis likely 2/2 to seizure episode --Continue to trend to note downtrending clearance of lactate --Recommend Banana bag plus daily thiamine and folic acid --Seizure precautions, fall precautions, aspiration precautions --Elevated CK likely 2/2 to muscle breakdown product given seizure activity --Recommend IVF given UA with Blood 2+ and minimal RBCs to avoid progression to rhabdomyolysis/myoglobinuria --Replete electrolytes --Monitor BP and if continues to have SBP of 160+ despite home dose Metoprolol would start second antihypertensive agent --Recommend holding Metformin in inpatient setting given elevated LA and switch to ISS coverage ACHS --Hypoalbuminemia likely multifactorial: nutritional status vs. renal losses given proteinuria FEN: Fluids: NS@100cc/hr Electrolyte abnormalities: HypoNa mild; trend, HypoMg; replete, HyperKalemia possibly 2/2 to metabolic breakdown; monitor and if steady increase would treat Nutrition: NPO until AM and advance as pt's seizures become more controlled PPX: DVT - Heparin SQ Dispo: Recommend Telemetry or Med-surg mgmt at this point given hemodynamically stable and airway is currently protected; if destabilizes or further seizures occur please recall for ICU placement Case discussed with EM Physicians Wilbert Holden, DO - IM PGY-3
[2019-04-17] MEDS ORDERED: hydrALAZINE HCL 20 MG/ML VIAL IVPUSH ONE (05:48)
[2019-04-17] MEDS ORDERED: hydrALAZINE HCL 20 MG/ML VIAL ONE (05:52)
--- NOTE | 2019-04-17 05:55 | PN ---
Teaching Attending Note Name of Resident: Suzi Avila ATTENDING PHYSICIAN STATEMENT I saw and evaluated the patient. I reviewed the resident's note and discussed the case with the resident. I agree with the resident's findings and plan as documented. SUBJECTIVE: Patient is a 54 year old man with PMH of HTN, NIDDM, Seizure disorder, MDD, Alcohol abuse and ?Seizure disorder who after three witnessed seizures while undergoing alcohol detox. Patient does not recall convulsions. EMS reports that patient with tonic-clonic whole body convulsions for 45 seconds en route to hospital. Received 5 Versed en route. [facility] reports patient with witnessed convulsion in facility less than one minute at rest. No fall, or LOC and glucose was ~ 161. Patient somnolent, partially responsive, and difficult to arouse on arrival in the ER. He reports last alcoholic beverage x 2 days [employer]. Patient reports typically drinks 1 pint of liquor a day and two cans of beer. On home Librium 25 mg. Received Librium 04-16-19. Patient denies headache, vision change, palpitations, cough, wheezing, orthopena, PND, leg swelling/pain , nausea, vomiting, chest pain, fever, chills, SOB, urinary complaints, hematuria, BPR, abdominal pain, diarrhea, constipation, lightheadedness, weakness, sensory changes. OBJECTIVE: Somnolent but arousable Vital Signs Period Temp Pulse Resp BP Sys/Torrez Pulse Ox Last 24 Hr 98.7 F 94-97 18-20 156-178/96-104 96-98 HEENT: No Jaundice, eye redness or discharge, PERRLA, EOMI. Normocephalic, atraumatic. External ears are normal and hearing is grossly intact. No nasal discharge. Neck: Supple, nontender. No palpable adenopathy or thyromegaly. No JVD Chest: Good effort. Clear to auscultation and percussion. Heart: Regular. No S3, rub or murmur Abdomen: Not distended, soft, nontender and no HSM. No rebound or guarding. Normal bowel sounds. Ext: Peripheral pulses intact. No leg edema. Skin: Warm and dry. No petechiae, rash or ecchymosis. Neuro: Somnolent but arousable. Oriented to person and place. CN 2-12 grossly intact. Sensation grossly intact in all four extremities and DTR are symmetric. Psych: Appropriate mood and affect. Good insight. Home Medications Medication Instructions Recorded Atorvastatin Ca [Lipitor] 20 mg PO DAILY #14 tablet 12/11/18 metFORMIN HCL [Glucophage -] 1,000 mg PO BID@0700,1630 #30 12/11/18 tablet Aspirin [ASA -] 81 mg PO DAILY #30 tab.chew 03/14/19 Metoprolol Tartrate [Lopressor -] 50 mg PO BID #60 tablet 03/14/19 Ranitidine [Zantac -] 150 mg PO BID 04/16/19 Gabapentin [Neurontin] 600 mg PO TID 04/17/19 Abnormal Lab Results 04/17/19 04/17/19 04/17/19 01:43 01:45 01:45 MPV 6.6 L PT with INR INR Sodium Potassium Random Glucose Lactic Acid 10.6 H* Calcium Magnesium 1.3 L AST ALT Alkaline Phosphatase Creatine Kinase 716 H CK-MB (CK-2) 5.8 H Albumin Urine Protein Urine Blood 04/17/19 04/17/19 04/17/19 01:45 02:00 03:37 MPV PT with INR 13.80 H INR 1.17 H Sodium 135 L Potassium 5.6 H Random Glucose 177 H Lactic Acid Calcium 8.4 L Magnesium AST 162 H ALT 92 H Alkaline Phosphatase 124 H Creatine Kinase CK-MB (CK-2) Albumin 3.3 L Urine Protein 4+ H Urine Blood 2+ H ASSESSMENT AND PLAN: 1. Seizures/Alcohol withdrawal - Unclear whether he has underlying seizure disorder as well as alcohol withdrawal seizures - he said he was prescribed Neurontin for seizures. Will consult neurology and get EEG. No acute pathology on head CT. Will get C-spine CT scan. Being treated with banana bag. Will monitor closely due to the risk of delirium tremens. Patient being evaluated by the ICU team. May have associated alcoholic hepatitis - will trend LFTs. Hyperglycemia may partly explain hyperkalemia -will continue hydration to enhance renal potassium excretion. Getting banana bag, IV MgSO4 and will trend lactic acid level. Will implement CIWA ativan alcohol withdrawal protocol and do neurochecks. Implement seizure, fall and aspiration precautions. Treat with thiamine and folic acid and monitor electrolytes (Ca,Mg,K,P). Counseled patient about abstaining from alcohol. Will consult [facility] specialists and refer to alcohol detox upon discharge. 2. Hypoalbuminemia - Possibly due to combined effects of proteinuria, malnutrition and inflammation associated with comorbid chronic conditions. Will ensure adequate dietary protein intake and also consult road monkey. 3. DM For now, we will hold the home diabetes drugs and implement sliding scale insulin regimen. Provide comprehensive diabetes care with patient teaching and counseling about the importance of adherence to prescribed diabetes regimen, euglycemia, eye care and foot care. 4. Hypertension - Restart suitable outpatient antihypertensive drugs when clinically appropriate. Revise regimen to ensure good BP control. Will add an ACEI/ARB upon discharge in view of NIDDM/proteinuria. Nonpharmacologic measures to control hypertension like weight loss, salt restriction and exercise discussed. 5. DVT prophylaxis - Lovenox 40 mg SQ q 24 hours. 6. Advance directives - Full code
[2019-04-17] MEDS ORDERED: chlordiazePOXIDE HCL 10 MG CAPSULE PO PRN (06:13)
[2019-04-17] MEDS ORDERED: D5-1/2NS+20 MEQ KCL - 20 MEQ/1,000 ML INFUS.BAG IV SCH (06:15)
[2019-04-17] MEDS ORDERED: chlordiazePOXIDE HCL 25 MG CAPSULE ONE (06:24)
[2019-04-17] MEDS ORDERED: INSULIN REGULAR HUMAN 100 UNITS/ML *VIAL SQ ONE (06:26)
[2019-04-17] MEDS: chlordiazePOXIDE HCL 25 MG CAPSULE PO SCH ×3 (06:29→21:01)
[2019-04-17] MEDS ORDERED: levETIRAcetam 500 MG/5 ML INJECTION VIAL IVPB ONE ×2 (06:30→06:42)
[2019-04-17] MEDS ORDERED: CALCIUM GLUCONATE 10% - 1,000 MG/10 ML VIAL IVPUSH ONE (06:45)
[2019-04-17] MEDS ORDERED: DEXTROSE 50%-WATER - 25 GM/50 ML VIAL IVPUSH ONE (06:45)
[2019-04-17] MEDS ORDERED: FOLIC ACID INJECTION - 1 MG, THIAMINE HCL 100 MG, MULTIVIT INJECTION ADULT 10 ML in SOD... IVPB ONE (07:00)
[2019-04-17] MEDS ORDERED: DEXTROSE 50%-WATER 25 GM/50 ML DISP.SYRIN ONE (07:14)
[2019-04-17] MEDS ORDERED: CALCIUM GLUCONATE 10% - 1,000 MG/10 ML VIAL ONE (07:14)
[2019-04-17] MEDS ORDERED: INSULIN REGULAR HUMAN 100 UNITS/ML *VIAL ONE (07:15)
--- NOTE | 2019-04-17 07:17 | HP ---
CHIEF COMPLAINT: seizure-like activity PCP: HISTORY OF PRESENT ILLNESS: 54M with PMH of homlessness, HTN, DM, CAD("minor [place]", 2013), h/o kidney stones, chronic EtOH usage(1-2 "quarts" beer/daily, 1-2 "pints" hard liquor/daily) with last drink on morning of ED presentation; presents to [facility] after witnessed seizure at [facility]. Has associated frontal headache, nausea, vomitting, difficulty initiating void. Reports previously having 5x episodes of seizures requiring hospital visits, occurring every few months. Was told that they were related to alcohol withdrawal. Had episode of seizure-like activity in the ED, given ativan. Denies h/o of hematemesis, lower GIB, PRBPR, hemorrhoids, esophageal varices, Hep C. ER course was notable for: (1) seizure, prompting ativan (2) CT H -- neg (3) CXR Recent Travel: PAST MEDICAL HISTORY: HTN, DM, CAD("minor [place]", 2013), h/o kidney stones, chronic EtOH usage(1-2 "quarts" beer/daily, 1-2 "pints" hard liquor/daily) PAST SURGICAL HISTORY: none Social History: Smoking: social in the Alcohol: 1-2 "quarts" beer/daily, 1-2 "pints" hard liquor/daily for 10ys Drugs: cocaine Family History: HTN, DM Allergies: RASHAD-I(neck swelling, mouth swelling) RASHAD Inhibitors Allergy (Severe, Verified 04/17/19 01:04) Swelling lisinopril Allergy (Severe, Verified 04/17/19 01:04) Swelling HOME MEDICATIONS: Home Medications Medication Instructions Recorded Atorvastatin Ca [Lipitor] 20 mg PO DAILY #14 tablet 12/11/18 metFORMIN HCL [Glucophage -] 1,000 mg PO BID@0700,1630 #30 12/11/18 tablet Aspirin [ASA -] 81 mg PO DAILY #30 tab.chew 03/14/19 Metoprolol Tartrate [Lopressor -] 50 mg PO BID #60 tablet 03/14/19 Ranitidine [Zantac -] 150 mg PO BID 04/16/19 Gabapentin [Neurontin] 600 mg PO TID 04/17/19 REVIEW OF SYSTEMS CONSTITUTIONAL: Absent: fever, chills, diaphoresis, generalized weakness, malaise, loss of appetite, weight change HEENT: Absent: visual changes CARDIOVASCULAR: Absent: chest pain, syncope, palpitations, lightheadedness, peripheral edema RESPIRATORY: Absent: cough, shortness of breath, dyspnea with exertion, orthopnea, wheezing, hemoptysis GASTROINTESTINAL: positive for nausea, vomiting Absent: abdominal pain, abdominal distension, , diarrhea, constipation, melena, hematochezia GENITOURINARY: positive for hesitancy Absent: dysuria, frequency, urgency, hematuria, flank pain, genital pain MUSCULOSKELETAL: Absent: back pain, neck pain SKIN: Absent: rash, itching, pallor HEMATOLOGIC/IMMUNOLOGIC: Absent: lymphadenopathy ENDOCRINE: Absent: unexplained weight gain, unexplained weight loss, heat intolerance, cold intolerance NEUROLOGIC: positive for QUEZADA Absent: focal weakness or paresthesias, dizziness, unsteady gait, seizure, mental status changes, bladder or bowel incontinence PSYCHIATRIC: Absent: anxiety, depression, suicidal or homicidal ideation, hallucinations. PHYSICAL EXAMINATION Vital Signs - 24 hr 04/17/19 04/17/19 04/17/19 01:00 01:04 02:00 Temperature 98.7 F Pulse Rate 94 H Pulse Rate [ Radial] Respiratory 18 Rate Blood Pressure 167/104 H Blood Pressure [Right Arm] O2 Sat by Pulse 98 96 98 Oximetry (%) 04/17/19 04/17/19 04/17/19 02:27 03:14 03:46 Temperature Pulse Rate Pulse Rate [ 97 H 94 H Radial] Respiratory 20 Rate Blood Pressure Blood Pressure 156/102 H 165/98 169/96 [Right Arm] O2 Sat by Pulse 98 96 Oximetry (%) 04/17/19 04/17/19 04/17/19 04:08 04:59 06:05 Temperature Pulse Rate Pulse Rate [ 94 H 94 H 108 H Radial] Respiratory Rate Blood Pressure Blood Pressure 178/98 H 163/102 H 163/100 [Right Arm] O2 Sat by Pulse 98 98 Oximetry (%) 04/17/19 04/17/19 06:06 06:20 Temperature Pulse Rate Pulse Rate [ 100 H Radial] Respiratory Rate Blood Pressure Blood Pressure 150/89 148/88 [Right Arm] O2 Sat by Pulse 100 Oximetry (%) GENERAL: no acute distress, A&O x2, GCS 14, somnolent-appearing HEAD: Normal with no signs of trauma. EYES: extraocular movements intact, sclera anicteric, conjunctiva clear. No lid lag. EARS, NOSE, THROAT: Ears normal, nares patent, oropharynx clear without exudates. Moist mucous membranes. NECK: Normal range of motion, supple without lymphadenopathy, JVD, or masses. LUNGS: Breath sounds equal, clear to auscultation bilaterally. No wheezes, and no crackles. No accessory muscle use. HEART: Regular rate and rhythm, normal S1 and S2 without murmur, rub or gallop. ABDOMEN: Soft, nontender, not distended, no guarding, no rebound, no masses. Umbilical henia w/ reducible fat MUSCULOSKELETAL: Normal range of motion at all joints. No bony deformities or tenderness. No CVA tenderness. UPPER EXTREMITIES:warm, well-perfused. No cyanosis. No peripheral edema. LOWER EXTREMITIES: 2+ pulses, warm, well-perfused. No calf tenderness. No peripheral edema. NEUROLOGICAL: grossly normal PSYCHIATRIC: Cooperative. Appropriate mood and affect. SKIN: Warm, dry, normal turgor, no rashes or lesions noted. Laboratory Results - last 24 hr 04/17/19 04/17/19 04/17/19 01:43 01:45 01:45 WBC 9.6 RBC 4.57 Hgb 13.8 Hct 40.7 D MCV 89.0 MCH 30.2 MCHC 33.9 RDW 15.6 Plt Count 243 MPV 6.6 L Absolute Neuts (auto) 6.3 Neutrophils % 65.3 Lymphocytes % 29.0 Monocytes % 4.3 Eosinophils % 0.2 Basophils % 1.2 Nucleated RBC % 0 PT with INR INR Sodium Potassium Chloride Carbon Dioxide Anion Gap BUN Creatinine Est GFR (CKD-EPI)AfAm Est GFR (CKD-EPI)NonAf POC Glucometer Random Glucose Lactic Acid 10.6 H* Calcium Magnesium 1.3 L Total Bilirubin AST ALT Alkaline Phosphatase Creatine Kinase 716 H Creatine Kinase Index 0.8 CK-MB (CK-2) 5.8 H Troponin I < 0.02 Total Protein Albumin Urine Color Urine Appearance Urine pH Ur Specific [place] Urine Protein Urine Glucose (UA) Urine Ketones Urine Blood Urine Nitrite Urine Bilirubin Urine Urobilinogen Ur Leukocyte Esterase Urine WBC (Auto) Urine RBC (Auto) Urine Casts (Auto) U Epithel Cells (Auto) Urine Bacteria (Auto) 04/17/19 04/17/19 04/17/19 01:45 02:00 02:24 WBC RBC Hgb Hct MCV MCH MCHC RDW Plt Count MPV Absolute Neuts (auto) Neutrophils % Lymphocytes % Monocytes % Eosinophils % Basophils % Nucleated RBC % PT with INR INR Sodium 135 L Potassium 5.6 H Chloride 99 Carbon Dioxide 26 Anion Gap 11 BUN 11.9 Creatinine 1.3 Est GFR (CKD-EPI)AfAm 71.19 Est GFR (CKD-EPI)NonAf 61.43 POC Glucometer 140 Random Glucose 177 H Lactic Acid Calcium 8.4 L Magnesium Total Bilirubin 0.6 AST 162 H ALT 92 H Alkaline Phosphatase 124 H Creatine Kinase Creatine Kinase Index CK-MB (CK-2) Troponin I Total Protein 8.2 Albumin 3.3 L Urine Color Yellow Urine Appearance Cloudy Urine pH 5.5 Ur Specific [place] 1.018 Urine Protein 4+ H Urine Glucose (UA) Negative Urine Ketones Negative Urine Blood 2+ H Urine Nitrite Negative Urine Bilirubin Negative Urine Urobilinogen 0.2 Ur Leukocyte Esterase Trace Urine WBC (Auto) 92 Urine RBC (Auto) 3 Urine Casts (Auto) 22 U Epithel Cells (Auto) 0.5 Urine Bacteria (Auto) 1467.6 04/17/19 03:37 WBC RBC Hgb Hct MCV MCH MCHC RDW Plt Count MPV Absolute Neuts (auto) Neutrophils % Lymphocytes % Monocytes % Eosinophils % Basophils % Nucleated RBC % PT with INR 13.80 H INR 1.17 H Sodium Potassium Chloride Carbon Dioxide Anion Gap BUN Creatinine Est GFR (CKD-EPI)AfAm Est GFR (CKD-EPI)NonAf POC Glucometer Random Glucose Lactic Acid Calcium Magnesium Total Bilirubin AST ALT Alkaline Phosphatase Creatine Kinase Creatine Kinase Index CK-MB (CK-2) Troponin I Total Protein Albumin Urine Color Urine Appearance Urine pH Ur Specific [place] Urine Protein Urine Glucose (UA) Urine Ketones Urine Blood Urine Nitrite Urine Bilirubin Urine Urobilinogen Ur Leukocyte Esterase Urine WBC (Auto) Urine RBC (Auto) Urine Casts (Auto) U Epithel Cells (Auto) Urine Bacteria (Auto) ASSESSMENT/PLAN: 54M with PMH of homelessness, HTN, DM, CAD("minor [place]", 2013), h/o kidney stones , chronic EtOH usage with possible alcohol withdrawal-related seizure vs seizure of other etiology. # seizure possibly 2/2 EtOH withdrawal >CT H(04/16/19) -- prelim read neg for path - Neuro consult, pending: rec Linette - tele floor admit # chronic EtOH usage - CIOK protocol - banana bag - fu serum EtOH # Hyperkalemia - calcium gluconate, D50, insulin 10U - fu BMP @1200 # elevated lactate(10.6) - bolus NS 1L - fu lactate 2h, post-bolus Nader Rodriguez DO PGY-1 Medicine, PM Float [id number] 04/17/19 Visit type - Emergency Visit Emergency Visit: Yes ED Registration Date: 04/17/19 Care time: The patient presented to the Emergency Department on the above date and was hospitalized for further evaluation of their emergent condition. - New Patient This patient is new to me today: Yes Date on this admission: 04/17/19 - Critical Care Critical Care patient: No
--- NOTE | 2019-04-17 07:24 | PN ---
Physical Exam: SUBJECTIVE: Patient seen and examined. Reported seizures broken with versed and ativan. Pt sent from [facility]. Report up to 4 prior seizures. last less than a month ago. Not documented to be on any AEDs. Pt is an everyday alcohol consumer last intake of liquor about a pint and quart prior to going to detox yesterday. During the seizure, was was said to have desated to 80s. Currently sating fine off supplemental oxygen. No CP, no SOB. Does not remember seizing. Reports he was told that he seized. Started on librium protocol. OBJECTIVE: Vital Signs Period Temp Pulse Resp BP Sys/Torrez Pulse Ox Last 24 Hr 98.7 F 94-108 18-24 148-178/88-104 96-100 Vital Signs Temp 98.7 F 04/17/19 01:04 Pulse 104 H 04/17/19 07:21 Resp 24 H 04/17/19 07:21 BP 166/92 04/17/19 07:21 Pulse Ox 100 04/17/19 07:21 Intake & Output 04/16/19 04/16/19 04/17/19 11:59 23:59 11:59 Weight 81.647 kg Other: Voiding Method Toilet Height 1.8 m Body Mass Index (BMI) 25.1 Weight Measurement Method Estimated by Staff GENERAL: The patient is obese, drowsy but arousable, fully oriented, in no acute distress. HEAD: Normal with no signs of trauma. EYES: PERRL, extraocular movements intact ENT: moist mucous membranes. NECK: supple. LUNGS: Breath sounds equal, clear to auscultation bilaterally, no wheezes, no crackles, no accessory muscle use. HEART: Regular rate and rhythm, S1, S2 ABDOMEN: Soft, nontender, obese, normoactive bowel sounds, no guarding EXTREMITIES: 2+ pulses, warm, well-perfused, no edema. NEUROLOGICAL: AAOx3. No tremors. No diaphoresis. CIWA-0. Cranial nerves II through XII grossly intact. Normal speech, gait not observed. CBC, BMP 04/17/19 01:45 04/17/19 08:45 Laboratory Results - last 24 hr 04/17/19 04/17/19 04/17/19 01:43 01:45 01:45 WBC 9.6 RBC 4.57 Hgb 13.8 Hct 40.7 D MCV 89.0 MCH 30.2 MCHC 33.9 RDW 15.6 Plt Count 243 MPV 6.6 L Absolute Neuts (auto) 6.3 Neutrophils % 65.3 Lymphocytes % 29.0 Monocytes % 4.3 Eosinophils % 0.2 Basophils % 1.2 Nucleated RBC % 0 PT with INR INR Sodium Potassium Chloride Carbon Dioxide Anion Gap BUN Creatinine Est GFR (CKD-EPI)AfAm Est GFR (CKD-EPI)NonAf POC Glucometer Random Glucose Lactic Acid 10.6 H* Calcium Magnesium 1.3 L Total Bilirubin AST ALT Alkaline Phosphatase Creatine Kinase 716 H Creatine Kinase Index 0.8 CK-MB (CK-2) 5.8 H Troponin I < 0.02 Total Protein Albumin Urine Color Urine Appearance Urine pH Ur Specific [place] Urine Protein Urine Glucose (UA) Urine Ketones Urine Blood Urine Nitrite Urine Bilirubin Urine Urobilinogen Ur Leukocyte Esterase Urine WBC (Auto) Urine RBC (Auto) Urine Casts (Auto) U Epithel Cells (Auto) Urine Bacteria (Auto) Alcohol, Quantitative 04/17/19 04/17/19 04/17/19 01:45 02:00 02:24 WBC RBC Hgb Hct MCV MCH MCHC RDW Plt Count MPV Absolute Neuts (auto) Neutrophils % Lymphocytes % Monocytes % Eosinophils % Basophils % Nucleated RBC % PT with INR INR Sodium 135 L Potassium 5.6 H Chloride 99 Carbon Dioxide 26 Anion Gap 11 BUN 11.9 Creatinine 1.3 Est GFR (CKD-EPI)AfAm 71.19 Est GFR (CKD-EPI)NonAf 61.43 POC Glucometer 140 Random Glucose 177 H Lactic Acid Calcium 8.4 L Magnesium Total Bilirubin 0.6 AST 162 H ALT 92 H Alkaline Phosphatase 124 H Creatine Kinase Creatine Kinase Index CK-MB (CK-2) Troponin I Total Protein 8.2 Albumin 3.3 L Urine Color Yellow Urine Appearance Cloudy Urine pH 5.5 Ur Specific [place] 1.018 Urine Protein 4+ H Urine Glucose (UA) Negative Urine Ketones Negative Urine Blood 2+ H Urine Nitrite Negative Urine Bilirubin Negative Urine Urobilinogen 0.2 Ur Leukocyte Esterase Trace Urine WBC (Auto) 92 Urine RBC (Auto) 3 Urine Casts (Auto) 22 U Epithel Cells (Auto) 0.5 Urine Bacteria (Auto) 1467.6 Alcohol, Quantitative < 3.0 04/17/19 04/17/19 03:37 06:32 WBC RBC Hgb Hct MCV MCH MCHC RDW Plt Count MPV Absolute Neuts (auto) Neutrophils % Lymphocytes % Monocytes % Eosinophils % Basophils % Nucleated RBC % PT with INR 13.80 H INR 1.17 H Sodium Potassium Chloride Carbon Dioxide Anion Gap BUN Creatinine Est GFR (CKD-EPI)AfAm Est GFR (CKD-EPI)NonAf POC Glucometer 132 Random Glucose Lactic Acid Calcium Magnesium Total Bilirubin AST ALT Alkaline Phosphatase Creatine Kinase Creatine Kinase Index CK-MB (CK-2) Troponin I Total Protein Albumin Urine Color Urine Appearance Urine pH Ur Specific [place] Urine Protein Urine Glucose (UA) Urine Ketones Urine Blood Urine Nitrite Urine Bilirubin Urine Urobilinogen Ur Leukocyte Esterase Urine WBC (Auto) Urine RBC (Auto) Urine Casts (Auto) U Epithel Cells (Auto) Urine Bacteria (Auto) Alcohol, Quantitative Active Medications Generic Name Dose Route Start Last Admin Trade Name Freq PRN Reason Stop Dose Admin Chlordiazepoxide HCl 10 mg 04/19/19 00:00 Librium - PO 04/20/19 00:00 Q12H PRN Signs/symptoms of Withdrawal Chlordiazepoxide HCl 10 mg 04/17/19 06:13 Librium - PO 04/18/19 06:12 Q8H PRN Signs/symptoms of Withdrawal Chlordiazepoxide HCl 25 mg 04/17/19 05:00 04/17/19 06:29 Librium - PO 04/17/19 21:01 25 mg Q8H GIACOMO Administration Chlordiazepoxide HCl 15 mg 04/18/19 05:00 Librium - PO 04/18/19 21:01 Q8H GIACOMO Chlordiazepoxide HCl 10 mg 04/19/19 05:00 Librium - PO 04/19/19 21:01 Q8H GIACOMO Chlordiazepoxide HCl 10 mg 04/20/19 05:00 Librium - PO 04/20/19 05:01 ONCE ONE Enoxaparin Sodium 40 mg 04/17/19 10:00 Lovenox - SQ DAILY [facility] Folic Acid 1 mg/ Thiamine HCl 1,000 mls @ 125 mls/hr 04/17/19 07:00 04/17/19 07:13 100 mg/ Multivitamins/Minerals IVPB 04/17/19 14:59 125 mls/hr 10 ml/ Sodium Chloride ONCE ONE Administration Levetiracetam 500 mg 04/18/19 10:00 Keppra Injection - IVPB BID [facility] Laboratory Tests 04/17/19 04/17/19 04/17/19 01:43 01:45 01:45 Sodium 135 L Potassium 5.6 H Random Glucose 177 H Lactic Acid 10.6 H* Magnesium 1.3 L 04/17/19 04/17/19 08:45 08:45 Sodium 135 L Potassium 2.7 L* Random Glucose 124 H Lactic Acid 1.4 Magnesium Ambulatory Orders Atorvastatin Ca [Lipitor] 20 mg PO DAILY #14 tablet 12/11/18 metFORMIN HCL [Glucophage -] 1,000 mg PO BID@0700,1630 #30 tablet 12/11/18 Aspirin [ASA -] 81 mg PO DAILY #30 tab.chew 03/14/19 Metoprolol Tartrate [Lopressor -] 50 mg PO BID #60 tablet 03/14/19 Ranitidine [Zantac -] 150 mg PO BID 04/16/19 Gabapentin [Neurontin] 600 mg PO TID 04/17/19 Current Medications Aspirin (Asa -) 81 mg PO DAILY [facility] Last Admin: 04/17/19 11:36 Dose: 81 mg Atorvastatin Calcium (Lipitor -) 20 mg PO HS [facility] Calcium Carbonate/Cholecalciferol (Os-Jarrett 500+D -) 2 tab PO DAILY [facility] Chlordiazepoxide HCl (Librium -) 10 mg PO Q12H PRN PRN Reason: Signs/symptoms of Withdrawal Stop: 04/20/19 00:00 Chlordiazepoxide HCl (Librium -) 10 mg PO Q8H PRN PRN Reason: Signs/symptoms of Withdrawal Stop: 04/18/19 06:12 Chlordiazepoxide HCl (Librium -) 25 mg PO Q8H [facility] Stop: 04/17/19 21:01 Last Admin: 04/17/19 06:29 Dose: 25 mg Chlordiazepoxide HCl (Librium -) 15 mg PO Q8H [facility] Stop: 04/18/19 21:01 Chlordiazepoxide HCl (Librium -) 10 mg PO Q8H [facility] Stop: 04/19/19 21:01 Chlordiazepoxide HCl (Librium -) 10 mg PO ONCE ONE Stop: 04/20/19 05:01 Enoxaparin Sodium (Lovenox -) 40 mg SQ DAILY [facility] Last Admin: 04/17/19 10:07 Dose: 40 mg Gabapentin (Neurontin -) 600 mg PO TID [facility] Folic Acid 1 mg/ Thiamine HCl 100 mg/ Multivitamins/Minerals 10 ml/ Sodium Chloride 1,000 mls @ 125 mls/hr IVPB ONCE ONE Stop: 04/17/19 14:59 Last Admin: 04/17/19 07:13 Dose: 125 mls/hr Potassium Chloride (Potassium Chloride 10 Meq Premix Ivpb -) 10 meq in 100 mls @ 100 mls/hr IVPB Q60M [facility] Stop: 04/17/19 13:44 Last Admin: 04/17/19 12:06 Dose: 100 mls/hr Potassium Chloride 20 meq/ (Sodium Chloride) 1,010 mls @ 100 mls/hr IVPB ASDIR [facility] Insulin Aspart (Novolog Vial Sliding Scale -) 1 vial SQ ACHS [facility]; Protocol Last Admin: 04/17/19 12:07 Dose: Not Given Levetiracetam (Keppra Injection -) 500 mg IVPB BID [facility] Magnesium Sulfate (Magnesium Sulfate) 2 gm IVPB ONCE ONE Stop: 04/17/19 12:08 Metoprolol Tartrate (Lopressor -) 50 mg PO BID [facility] Last Admin: 04/17/19 11:36 Dose: 50 mg Ranitidine HCl (Zantac -) 150 mg PO BID [facility] Last Admin: 04/17/19 11:36 Dose: 150 mg ASSESSMENT/PLAN: Pt is a 54M with PMH of homelessness, HTN, DM, CAD("minor [place]", 2013), h/o kidney stones, chronic EtOH usage with possible alcohol withdrawal-related seizure vs seizure of other etiology. # seizure possibly 2/[address] H(04/16/19) negative - Neuro consult, pending: rec Keppra - Keppra 500 bid -per Dr Joseph - tele floor admit #Elevated CK -Could be in setting of seizure -Received fluids, banana bag -Trend -LR @100 # chronic EtOH usage -Pt sent [facility] from [facility], pt started on librium protocol - banana bag - fu serum EtOH # Hyperkalemia -resolved, now hypok -Pt came in at 5.6 - calcium gluconate, D50, insulin 10U - fu BMP @1200 #Hypokalemia -2.7 Likely iatrogenic - KCL 10meq x3 runs -LR @100 # elevated lactate(10.6) -Likely secondary to seizure, has normalized - bolus NS 1L - resolved #Elevated transaminases -R/O alcoholic hepatitis -Maddrey's discriminant function-4.3 (good prognosis) Pt does not need glucocorticoid therapy #HTN -Cont home meds #DM ISS BGM DM diet #CAD("minor [place]", 2013) Cont metoprolol #h/o kidney stones No hx of colic #FEN Cont LR Visit type - Emergency Visit Emergency Visit: Yes ED Registration Date: 04/17/19 Care time: The patient presented to the Emergency Department on the above date and was hospitalized for further evaluation of their emergent condition. - New Patient This patient is new to me today: Yes Date on this admission: 04/17/19 - Critical Care Critical Care patient: No - Discharge Referral Referred to [facility] Med P.C.: No
[2019-04-17 09:28] LABS: BLOOD UREA NITROGEN 7.4 mg/dL (7-18); CALCIUM 7.4 mg/dL (8.5-10.1); CREATININE 0.8 mg/dL (0.55-1.3)
[2019-04-17 09:52] LABS: POTASSIUM 2.7 mmol/L (3.5-5.1)
[2019-04-17] MEDS: ENOXAPARIN NA (PORCINE) 40 MG/0.4 ML DISP.SYRIN SQ SCH (10:07)
--- NOTE | 2019-04-17 10:13 | EKG ---
Test Reason : Blood Pressure : / mmHG Vent. Rate : 092 BPM Atrial Rate : 092 BPM P-R Int : 166 ms QRS Dur : 088 ms QT Int : 358 ms P-R-T Axes : 050 053 053 degrees QTc Int : 442 ms NORMAL SINUS RHYTHM MINIMAL VOLTAGE CRITERIA FOR LVH, MAY BE NORMAL VARIANT NONSPECIFIC T WAVE ABNORMALITY ABNORMAL ECG WHEN COMPARED WITH ECG OF 21-NOV-2018 06:37, NO SIGNIFICANT CHANGE WAS FOUND Confirmed by CORY ONOFRE MD ([id number]) on 04/17/2019 10:13:17 AM Referred By: Confirmed By:CORY ONOFRE MD
[2019-04-17] MEDS ORDERED: CALCIUM GLUCONATE 10% - 1,000 MG/10 ML VIAL IVPB ONE (10:35)
[2019-04-17] MEDS ORDERED: LACTATED RINGERS SOLUTION 1,000 ML/1,000 ML INFUS.BAG IV SCH (10:45)
[2019-04-17] MEDS: METOPROLOL TARTRATE 50 MG TABLET (FP) PO SCH ×2 (11:36→21:01)
[2019-04-17] MEDS: ASPIRIN 81 MG CHEWABLE TABLETS PO SCH (11:36)
[2019-04-17] MEDS: RANITIDINE HCL 150 MG TABLET (FP) PO SCH ×2 (11:36→21:01)
[2019-04-17] MEDS: KCL 10 MEQ IVPB 10 MEQ/100 ML INFUS.BAG IVPB SCH ×3 (12:06→15:28)
[2019-04-17] MEDS: INSULIN SLIDING SCALE (NOVOLOG) 1 VIAL SQ SCH ×3 (12:07→21:02)
[2019-04-17] MEDS ORDERED: MAGNESIUM SULF 50% (8.12 MEQ/2 ML-1 GM VIAL) IVPB ONE (12:07)
[2019-04-17] MEDS ORDERED: MAGNESIUM OXIDE 400 MG TABLET (FP) PO ONE ×2 (12:07→17:05)
[2019-04-17] MEDS ORDERED: SODIUM CHLORIDE 1,000 ML with POTASSIUM CHLORIDE 20 MEQ IVPB SCH ×2 (12:15)
[2019-04-17] MEDS ORDERED: POTASSIUM CHLORIDE 20 MEQ in SODIUM CHLORIDE 1,000 ML IVPB SCH (12:15)
--- NOTE | 2019-04-17 12:24 | CON.NEURO ---
Consult Consult Specialty:: Opal Referred by:: ER Reason for Consultation:: Sz - History of Present Illness History of Present Illness: this is a very pleasant 54-year-old right-handed -Swiss man with history of alcohol abuse Coronary artery disease Bronchial asthma Questionable seizure in the past Presented from [facility] with a chief complaint of witnessed seizure. Patient had episodes similar to this patient drinks beer and hard liquor. Patient had 5 witnessed seizure in the past with multiple hospital admission. In the emergency room CAT scan of the head revealed no evidence of acute pathology. Patient is a poor historian seen on the telemetry she received Librium and Ativan Keppra. No seizure since admission patient was groggy he knew the Keppra - History Source History Provided By: Patient, Medical Record Limitations to Obtaining History: Clinical Condition - Alcohol/Substance Use Hx Alcohol Use: Yes - Smoking History Smoking history: Unknown if ever smoked Have you smoked in the past 12 months: No Aproximately how many cigarettes per day: 1 If you are a former smoker, when did you quit?: at age 19 Home Medications - Allergies Allergies/Adverse Reactions: Allergies Allergy/AdvReac Type Severity Reaction Status Date / Time RASHAD Inhibitors Allergy Severe Swelling Verified 04/17/19 01:04 lisinopril Allergy Severe Swelling Verified 04/17/19 01:04 - Home Medications Home Medications: Ambulatory Orders Atorvastatin Ca [Lipitor] 20 mg PO DAILY #14 tablet 12/11/18 metFORMIN HCL [Glucophage -] 1,000 mg PO BID@0700,1630 #30 tablet 12/11/18 Aspirin [ASA -] 81 mg PO DAILY #30 tab.chew 03/14/19 Metoprolol Tartrate [Lopressor -] 50 mg PO BID #60 tablet 03/14/19 Ranitidine [Zantac -] 150 mg PO BID 04/16/19 Gabapentin [Neurontin] 600 mg PO TID 04/17/19 Family Disease History - Family Disease History Family Disease History: Heart Disease: Mother (HTN), Other: Father (Alcohol), Mother, Brother (Alcohol) Review of Systems - Review of Systems Constitutional: reports: No Symptoms Eyes: reports: No Symptoms Neurological: reports: Headache, Incoordination, Numbness Physical Exam-Neuro Vital Signs: Vital Signs Temperature 98.7 F 04/17/19 01:04 Pulse Rate 104 H 04/17/19 07:21 Respiratory Rate 24 H 04/17/19 07:21 Blood Pressure 166/92 04/17/19 07:21 O2 Sat by Pulse Oximetry (%) 100 04/17/19 07:21 Constitutional: Yes: Well Nourished Neck: Yes: WNL Cardiovascular: Yes: WNL Labs: CBC, BMP 04/17/19 01:45 04/17/19 08:45 INR, PTT INR 1.17 (0.83-1.09) H 04/17/19 03:37 - Neuro Exam Level Of Consciousness: Yes: Oriented to Person, Oriented to Place Eyes: Yes: PERRLA Speech: WNL Dominant Hand: Right Cranial Nerves II-XII Intact: Yes Gag: Present DTR's: 0 Left Bicep, 0 Right Bicep, 0 Left Tricep, 0 Right Tricep, 0 Left Brachioradialis, 0 Right Brachioradialis Response to light touch: Normal Response to pain prick: Normal Response to temperature: Abnormal Response to vibration: Abnormal Motor Strength: 3/5: Left Arm, Right Arm, Left Leg, Right Leg Gait: Deferred Imaging - Results Cat Scan: Image Reviewed Assessment/Plan 54-year-old man with history of alcohol abuse presents with a breakthrough seizure witnessed Currently with no seizure Neurological differential diagnoses #1 alcohol withdrawal seizure #2 delirium terminus 1. Seizure precautions. 2. EEG. 3. Keppra 500 mg by mouth twice a day. 4. Ativan when necessary seizure. 5. DT prophylaxis with the Librium protocol/thiamine/folic acid Thank you very much for referring this patient for neurological consultation
[2019-04-17 13:45] VITALS: BMI 31.1
[2019-04-17] MEDS: CALCIUM 500MG/VIT-D 200 UNITS COMBO TABLET (FP) PO SCH (14:00)
[2019-04-17] MEDS: GABAPENTIN 300 MG CAPSULE (FP) PO SCH ×2 (14:01→21:01)
[2019-04-17] MEDS: POTASSIUM CHLORIDE 20 MEQ in SODIUM CHLORIDE 1,000 ML IVPB SCH (15:45)
[2019-04-17 16:37] LABS: BLOOD UREA NITROGEN 5.5 mg/dL (7-18); CREATININE 0.8 mg/dL (0.55-1.3); MAGNESIUM 1.8 mg/dL (1.8-2.4); POTASSIUM 3.1 mmol/L (3.5-5.1)
[2019-04-17] MEDS ORDERED: POTASSIUM CHLORIDE ORAL LIQUID 20 MEQ/15 ML PO ONE (18:49)
[2019-04-17] MEDS: levETIRAcetam 500 MG TABLET (FP) PO SCH (21:01)
[2019-04-17] MEDS ORDERED: ATORVASTATIN CA 20 MG TABLET (FP) PO SCH (22:00)
[2019-04-18] MEDS: chlordiazePOXIDE 5 MG CAPSULE PO SCH ×2 (05:44→12:50)
[2019-04-18] MEDS: GABAPENTIN 300 MG CAPSULE (FP) PO SCH (05:56)
[2019-04-18] MEDS: POTASSIUM CHLORIDE 20 MEQ in SODIUM CHLORIDE 1,000 ML IVPB SCH (05:59)
[2019-04-18] MEDS: INSULIN SLIDING SCALE (NOVOLOG) 1 VIAL SQ SCH ×2 (06:00→11:19)
[2019-04-18 08:18] LABS: BASO % 1.1 % (0-2.0); EOS % 3.4 % (0-4.5); HEMATOCRIT 35.6 % (35.4-49); LYMPH % 27.2 % (8-40); MCH 29.2 pg (25.7-33.7); MCHC 33.7 g/dl (32.0-35.9); MEAN CELL VOLUME 86.7 fl (80-96); MONO % 4.7 % (3.8-10.2); NEUT % 63.6 % (42.8-82.8); PLATELET COUNT 184 K/MM3 (134-434); RBC 4.11 M/mm3 (4.00-5.60); RDW 15.8 % (11.9-15.9); WHITE BLOOD COUNT 4.6 K/mm3 (4.0-10.0)
[2019-04-18] MEDS ORDERED: levETIRAcetam 500 MG/5 ML INJECTION VIAL IVPB SCH (10:00)
[2019-04-18] MEDS: RANITIDINE HCL 150 MG TABLET (FP) PO SCH (10:01)
[2019-04-18] MEDS: CALCIUM 500MG/VIT-D 200 UNITS COMBO TABLET (FP) PO SCH (10:01)
[2019-04-18] MEDS: ENOXAPARIN NA (PORCINE) 40 MG/0.4 ML DISP.SYRIN SQ SCH (10:01)
[2019-04-18] MEDS: METOPROLOL TARTRATE 50 MG TABLET (FP) PO SCH (10:01)
[2019-04-18] MEDS: levETIRAcetam 500 MG TABLET (FP) PO SCH (10:01)
[2019-04-18] MEDS: ASPIRIN 81 MG CHEWABLE TABLETS PO SCH (10:01)
--- NOTE | 2019-04-18 10:01 | PN ---
Physical Exam: SUBJECTIVE: Patient seen and examined OBJECTIVE: Vital Signs Period Temp Pulse Resp BP Sys/Torrez Pulse Ox Last 24 Hr 97.8 F-99.7 F 71-108 18-22 115-168/76-94 96-96 GENERAL: The patient is awake, alert, and fully oriented, in no acute distress. HEAD: Normal with no signs of trauma. EYES: PERRL, extraocular movements intact, sclera anicteric, conjunctiva clear. No ptosis. ENT: Ears normal, nares patent, oropharynx clear without exudates, moist mucous membranes. NECK: Trachea midline, full range of motion, supple. LUNGS: Breath sounds equal, clear to auscultation bilaterally, no wheezes, no crackles, no accessory muscle use. HEART: Regular rate and rhythm, S1, S2 without murmur, rub or gallop. ABDOMEN: Soft, nontender, nondistended, normoactive bowel sounds, no guarding, no rebound, no hepatosplenomegaly, no masses. EXTREMITIES: 2+ pulses, warm, well-perfused, no edema. NEUROLOGICAL: Cranial nerves II through XII grossly intact. Normal speech, gait not observed. PSYCH: Normal mood, normal affect. SKIN: Warm, dry, normal turgor, no rashes or lesions noted Laboratory Results - last 24 hr 04/17/19 04/17/19 04/17/19 08:45 13:04 15:56 WBC RBC Hgb Hct MCV MCH MCHC RDW Plt Count MPV Absolute Neuts (auto) Neutrophils % Lymphocytes % Monocytes % Eosinophils % Basophils % Nucleated RBC % Sodium 135 L 136 Potassium 2.7 L* 3.1 L Chloride 100 102 Carbon Dioxide 25 25 Anion Gap 11 9 BUN 7.4 5.5 L Creatinine 0.8 0.8 Est GFR (CKD-EPI)AfAm 116.56 116.56 Est GFR (CKD-EPI)NonAf 100.57 100.57 POC Glucometer Random Glucose 124 H 150 H Calcium 7.4 L 8.0 L Magnesium 1.8 Creatine Kinase 844 H Creatine Kinase Index 0.4 CK-MB (CK-2) 3.8 H Troponin I < 0.02 Albumin 3.0 L 04/17/19 04/18/19 04/18/19 20:59 05:55 07:00 WBC 4.6 RBC 4.11 Hgb 12.0 Hct 35.6 MCV 86.7 MCH 29.2 MCHC 33.7 RDW 15.8 Plt Count 184 D MPV 7.0 L Absolute Neuts (auto) 3.0 Neutrophils % 63.6 Lymphocytes % 27.2 Monocytes % 4.7 Eosinophils % 3.4 D Basophils % 1.1 Nucleated RBC % 0 Sodium Potassium Chloride Carbon Dioxide Anion Gap BUN Creatinine Est GFR (CKD-EPI)AfAm Est GFR (CKD-EPI)NonAf POC Glucometer 153 136 Random Glucose Calcium Magnesium Creatine Kinase Creatine Kinase Index CK-MB (CK-2) Troponin I Albumin Active Medications Generic Name Dose Route Start Last Admin Trade Name Freq PRN Reason Stop Dose Admin Aspirin 81 mg 04/17/19 10:45 04/17/19 11:36 Asa - PO 81 mg DAILY GIACOMO Administration Atorvastatin Calcium 20 mg 04/17/19 22:00 04/17/19 21:01 Lipitor - PO 20 mg HS GIACOMO Administration Calcium Carbonate/Cholecalciferol 2 tab 04/17/19 12:15 04/17/19 14:00 Os-Jarrett 500+D - PO 2 tab DAILY GIACOMO Administration Chlordiazepoxide HCl 10 mg 04/19/19 00:00 Librium - PO 04/20/19 00:00 Q12H PRN Signs/symptoms of Withdrawal Chlordiazepoxide HCl 15 mg 04/18/19 05:00 04/18/19 05:44 Librium - PO 04/18/19 21:01 15 mg Q8H GIACOMO Administration Chlordiazepoxide HCl 10 mg 04/19/19 05:00 Librium - PO 04/19/19 21:01 Q8H GIACOMO Chlordiazepoxide HCl 10 mg 04/20/19 05:00 Librium - PO 04/20/19 05:01 ONCE ONE Enoxaparin Sodium 40 mg 04/17/19 10:00 04/17/19 10:07 Lovenox - SQ 40 mg DAILY GIACOMO Administration Gabapentin 600 mg 04/17/19 14:00 04/18/19 05:56 Neurontin - PO 600 mg TID GIACOMO Administration Potassium Chloride 20 meq/ 1,010 mls @ 100 mls/hr 04/17/19 12:15 04/18/19 05: 59 Sodium Chloride IVPB 100 mls/hr ASDIR GIACOMO Administration Insulin Aspart 1 vial 04/17/19 11:00 04/18/19 06:00 Novolog Vial Sliding Scale - SQ Not Given ACHS GIACOMO Protocol Levetiracetam 500 mg 04/17/19 22:00 04/17/19 21:01 Keppra - PO 500 mg BID GIACOMO Administration Metoprolol Tartrate 50 mg 04/17/19 10:45 04/17/19 21:01 Lopressor - PO 50 mg BID GIACOMO Administration Ranitidine HCl 150 mg 04/17/19 10:45 04/17/19 21:01 Zantac - PO 150 mg BID GIACOMO Administration ASSESSMENT/PLAN:
[2019-04-18 10:10] LABS: ALBUMIN 2.8 g/dl (3.4-5.0); BILIRUBIN,TOTAL 0.7 mg/dL (0.2-1); BLOOD UREA NITROGEN 4.4 mg/dL (7-18); CALCIUM 7.5 mg/dL (8.5-10.1); CREATININE 0.7 mg/dL (0.55-1.3); MAGNESIUM 1.5 mg/dL (1.8-2.4); POTASSIUM 3.1 mmol/L (3.5-5.1); TOT PROT 7.1 g/dl (6.4-8.2)
[2019-04-18 10:37] LABS: PHOSPHOROUS 2.8 mg/dL (2.5-4.9)
[2019-04-18] MEDS ORDERED: MAGNESIUM SULF 50% (8.12 MEQ/2 ML-1 GM VIAL) IVPB ONE (10:39)
[2019-04-18] MEDS ORDERED: KCL 10 MEQ IVPB 10 MEQ/100 ML INFUS.BAG IVPB SCH (10:45)
[2019-04-18] MEDS ORDERED: POTASSIUM CHLORIDE TABS 20 MEQ TABLET.ER (FP) PO ONE (10:53)
[2019-04-18] MEDS ORDERED: MAGNESIUM OXIDE 400 MG TABLET (FP) PO ONE (10:58)
[2019-04-18 13:31] VITALS: BP 148/95; PULSE 78; TEMP 98.2
--- NOTE | 2019-04-18 13:45 | DS ---
Physical Exam: SUBJECTIVE: Patient seen and examined. No more seizures. No SOB, no chest pain, no nausea, no vomiting, no diaphoresis. Started on keppra yesterday. OBJECTIVE: Vital Signs Period Temp Pulse Resp BP Sys/Torrez Pulse Ox Last 24 Hr 97.8 F-99.7 F 71-89 17-20 115-164/76-95 96 Vital Signs Temp 98.2 F 04/18/19 09:00 Pulse 78 04/18/19 09:00 Resp 17 04/18/19 09:00 BP 148/95 04/18/19 09:00 Pulse Ox 98 04/18/19 09:00 Intake & Output 04/17/19 04/18/19 04/18/19 23:59 11:59 23:59 Intake Total 1250 240 Output Total 550 300 Balance 700 -60 Intake: IVPB 500 Oral 750 240 Output: Urine 550 300 Void 550 300 Other: Voiding Method Toilet Toilet # Unmeasured Voids Void 2 Bowel Movement No No # Bowel Movements 1 PHYSICAL EXAM GENERAL: The patient is awake, alert, and fully oriented, in no acute distress. HEAD: Normal with no signs of trauma. EYES: PERRL ENT: moist mucous membranes. NECK: supple. LUNGS: Breath sounds equal, clear to auscultation bilaterally, no wheezes, no crackles HEART: Regular rate and rhythm, S1, S2 ABDOMEN: Soft, nontender, nondistended, normoactive bowel sounds EXTREMITIES: 2+ pulses, warm, well-perfused, no edema. NEUROLOGICAL: Cranial nerves II through XII grossly intact. Normal speech, gait not observed. CIWA-0 LABS Laboratory Results - last 24 hr 04/17/19 04/17/19 04/17/19 13:04 15:56 20:59 WBC RBC Hgb Hct MCV MCH MCHC RDW Plt Count MPV Absolute Neuts (auto) Neutrophils % Lymphocytes % Monocytes % Eosinophils % Basophils % Nucleated RBC % Sodium 136 Potassium 3.1 L Chloride 102 Carbon Dioxide 25 Anion Gap 9 BUN 5.5 L Creatinine 0.8 Est GFR (CKD-EPI)AfAm 116.56 Est GFR (CKD-EPI)NonAf 100.57 POC Glucometer 153 Random Glucose 150 H Lactic Acid Calcium 8.0 L Phosphorus Magnesium 1.8 Total Bilirubin AST ALT Alkaline Phosphatase Creatine Kinase 844 H Creatine Kinase Index 0.4 CK-MB (CK-2) 3.8 H Troponin I < 0.02 Total Protein Albumin 04/18/19 04/18/19 04/18/19 05:55 07:00 07:00 WBC 4.6 RBC 4.11 Hgb 12.0 Hct 35.6 MCV 86.7 MCH 29.2 MCHC 33.7 RDW 15.8 Plt Count 184 D MPV 7.0 L Absolute Neuts (auto) 3.0 Neutrophils % 63.6 Lymphocytes % 27.2 Monocytes % 4.7 Eosinophils % 3.4 D Basophils % 1.1 Nucleated RBC % 0 Sodium 139 Potassium 3.1 L Chloride 104 Carbon Dioxide 25 Anion Gap 9 BUN 4.4 L Creatinine 0.7 Est GFR (CKD-EPI)AfAm 123.13 Est GFR (CKD-EPI)NonAf 106.24 POC Glucometer 136 Random Glucose 136 H Lactic Acid Calcium 7.5 L Phosphorus 2.8 Magnesium 1.5 L Total Bilirubin 0.7 AST 129 H ALT 60 Alkaline Phosphatase 96 Creatine Kinase 650 H Creatine Kinase Index 0.4 CK-MB (CK-2) 3.0 Troponin I Total Protein 7.1 Albumin 2.8 L 04/18/19 04/18/19 10:11 11:17 WBC RBC Hgb Hct MCV MCH MCHC RDW Plt Count MPV Absolute Neuts (auto) Neutrophils % Lymphocytes % Monocytes % Eosinophils % Basophils % Nucleated RBC % Sodium Potassium Chloride Carbon Dioxide Anion Gap BUN Creatinine Est GFR (CKD-EPI)AfAm Est GFR (CKD-EPI)NonAf POC Glucometer 147 Random Glucose Lactic Acid 0.3 L Calcium Phosphorus Magnesium Total Bilirubin AST ALT Alkaline Phosphatase Creatine Kinase Creatine Kinase Index CK-MB (CK-2) Troponin I Total Protein Albumin HOSPITAL COURSE: Date of Admission:04/17/19 Date of Discharge: 04/18/19 Pt is a 54M with PMH of homelessness, HTN, DM, CAD("minor [place]", 2014), h/o kidney stones, chronic EtOH usage with possible alcohol withdrawal-related seizure vs seizure of other etiology sent from [facility]. Seen by neurology and started on keppra and librium protocol. No more seizures since admission. Pt on librium protocol, noted to have elevated CK,and hyperk initially, then hypok, hypomagnesemia which were treated. Pt's statins were stopped due to CK elevation and mild transaminitis. He was transferred back to [facility] and continued on his home medications for diabetes and HTN/CAD. Minutes to complete discharge: 40 Discharge Summary Reason For Visit: ALCOHOL WITHDRAWAL SYNDROME Condition: Stable - Instructions Diet, Activity, Other Instructions: You came in with a seizure and you were treated. You have high numbers of your liver enzymes related to your alcohol drinking. Medications started You have been started on medications to prevent seizures Take Keppra 500mg daily twice a day by mouth Your potassium and magnesium numbers are low Continue potassium chloride 40mg by mouth daily for 3 days Cont magnesium oxide 800mg daily by mouth for the next 5 days Medication stopped We are holding your cholesterol medication -Lipitor in the meantime until your muscle and liver numbers get better Discuss with your primary care doctor about resuming your cholesterol medication. Increase water intake You had high numbers indicating breakdown of muscle, which could be as a result of the seizure. You received intravenous fluids, continue to drink a lot of fluids by mouth Laboratory Follow up Have repeat checks on potassium, magnesium, CPK and liver numbers (CMP) in 1 week Follow up Please follow up withy your primary care doctor in one week to have a repeat blood check for your muscle numbers -potassium, CPK and liver numbers CMP Follow up with your neurologist- Dr Joseph in one week Follow up with your primary care doctor Seizure related advise The seizures could be related to your alcohol ingestion/withdrawal. We recommend your stopping drinking. We are sending you back to [facility] for detoxication and rehabilitation. We advise you not to drive, not to swim alone, not be be around children alone or to be at heights Continue all your medications. If you have shortness of breath, chest pain, or worsening seizures despite being compliant on your medications, go to the nearest emergency room. Referrals: Ricardo Joseph MD [Staff Physician] - Disposition: I.P. ALCOHOL/SUBS ABUSE REHAB - Home Medications Comprehensive Discharge Medication List: Ambulatory Orders metFORMIN HCL [Glucophage -] 1,000 mg PO BID@0700,1630 #30 tablet 12/11/18 Aspirin [ASA -] 81 mg PO DAILY #30 tab.chew 03/14/19 Metoprolol Tartrate [Lopressor -] 50 mg PO BID #60 tablet 03/14/19 Ranitidine [Zantac -] 150 mg PO BID 04/16/19 Gabapentin [Neurontin] 600 mg PO TID 04/17/19 Magnesium Oxide [Mag-Ox -] 800 mg PO DAILY 5 Days #10 tablet 04/18/19 Potassium Chloride [K-Dur -] 40 meq PO DAILY 3 Days #2 tablet.er 04/18/19 levETIRAcetam [Keppra -] 500 mg PO BID #0 tablet 04/18/19 This patient is new to me today: No Emergency Visit: Yes ED Registration Date: 04/17/19 Care time: The patient presented to the Emergency Department on the above date and was hospitalized for further evaluation of their emergent condition. Critical Care patient: No - Discharge Referral Referred to [facility] No
[2019-04-19] MEDS ORDERED: chlordiazePOXIDE 5 MG CAPSULE PO PRN
[2019-04-19] MEDS ORDERED: chlordiazePOXIDE 5 MG CAPSULE PO SCH (05:00)
[2019-04-20] MEDS ORDERED: chlordiazePOXIDE 5 MG CAPSULE PO ONE (05:00)
== END 2019-04-18 13:40 | disposition other institution (70) | DRG 53 ==
LOC: JER 00:52 → UNDOADMIN 01:49 → JERBED 01:49 → J4S 10:31
PROVIDERS: ADMIT Internal Medicine; ATTEND Hospitalist
PROC: HZ2ZZZZ Detoxification Services for Substance Abuse Treatment (ICD-10-PCS; principal; 2019-04-17)
DX: G40.802 Other epilepsy, not intractable, without status epilepticus (principal); E88.09 Other disorders of plasma-protein metabolism, not elsewhere classified; I25.10 Atherosclerotic heart disease of native coronary artery without angina pectoris; R80.9 Proteinuria, unspecified; E11.9 Type 2 diabetes mellitus without complications; E87.6 Hypokalemia; E46 Unspecified protein-calorie malnutrition; F10.239 Alcohol dependence with withdrawal, unspecified; I10 Essential (primary) hypertension; F32.9 Major depressive disorder, single episode, unspecified; E87.2 Acidosis; E87.5 Hyperkalemia; E87.1 Hypo-osmolality and hyponatremia; E83.42 Hypomagnesemia; F10.231 Alcohol dependence with withdrawal delirium; Z59.0 Homelessness
CPT/HCPCS: 36415; 70450-TC; 71045-TC-FY; 72125-TC; 80048; 80053; 80307; 81003; 82040; 82550; 82553; 82962; 83605; 83735; 84100; 84484; 85025; 85610; 93005; 93010; 99285-25; J7030

== ENCOUNTER 2019-04-18 13:52 | Inpatient (IN) | payer OTHER ==
--- NOTE | 2019-04-18 14:18 | HP ---
CIWA Score Nausea/Vomitin-No Nausea/No Vomiting Muscle Tremors: None Anxiety: 0-No Anxiety, at Ease Agitation: 0-Normal Activity Paroxysmal Sweats: No Perspiration Orientation: 0-Oriented Tacttile Disturbances: 0-None Auditory Disturbances: 0-None Visual Disturbances: 0-None Headache: 0-None Present CIWA-Ar Total Score: 0 - Admission Criteria OASAS Guidelines: Admission for Medically Managed Detox: Requires at least one of the followin. CIWA greater than 12 2. Seizures within the past 24 hours 3. Delirium tremens within the past 24 hours 4. Hallucinations within the past 24 hours 5. Acute intervention needed for co occurring medical disorder 6. Acute intervention needed for co occurring psychiatric disorder 7. Severe withdrawal that cannot be handled at a lower level of care (continued vomiting, continued diarrhea, abnormal vital signs) requiring intravenous medication and/or fluids 8. Admission ROS S - HPI Allergies/Adverse Reactions: Allergies Allergy/AdvReac Type Severity Reaction Status Date / Time RASHAD Inhibitors Allergy Severe Swelling Verified 04/18/19 13:59 lisinopril Allergy Severe Swelling Verified 04/18/19 13:59 History of Present Illness: pt transferred from [facility] 2/ seizure while in detox , admitted 04/16/19 ,seen by neurology , started on Keppra 500 bid , on Librium taper while in facility , latest dose given today . . Exam Limitations: No Limitations - Ebola screening Have you traveled outside of the country in the last 21 days: No Have you had contact with anyone from an Ebola affected area: No Do you have a fever: No - Review of Systems Constitutional: No Symptoms Reported EENT: reports: No Symptoms Reported Respiratory: reports: No Symptoms reported Cardiac: reports: No Symptoms Reported GI: reports: No Symptoms Reported : reports: No Symptoms Reported Musculoskeletal: reports: No Symptoms Reported Integumentary: reports: No Symptoms Reported Neuro: reports: See HPI, Seizure Endocrine: reports: See HPI Psychiatric: reports: Orientated x3 Patient History - Patient Medical History Hx Anemia: No Hx Asthma: No Hx Chronic Obstructive Pulmonary Disease (COPD): No Hx Cancer: No Hx Cardiac Disorders: No Hx Congestive Heart Failure: No Hx Hypertension: Yes Hx Hypercholesterolemia: Yes (Gemfibra) Hx Pacemaker: No HX Cerebrovascular Accident: No Hx Seizures: No Hx Dementia: No Hx Diabetes: Yes Hx Gastrointestinal Disorders: No Hx Liver Disease: No Hx Genitourinary Disorders: No Hx Sexually Transmitted Disorders: No Hx Renal Disease (ESRD): No Hx Thyroid Disease: No Hx Human Immunodeficiency Virus (HIV): No (Negative 2018 in 09/01) Hx Hepatitis C: No Hx Depression: No Hx Suicide Attempt: No Hx Bipolar Disorder: No Hx Schizophrenia: No - Patient Surgical History Past Surgical History: Yes Hx Neurologic Surgery: No Hx Cataract Extraction: No Hx Cardiac Surgery: No Hx Lung Surgery: No Hx Breast Surgery: No Hx Breast Biopsy: No Hx Abdominal Surgery: No Hx Appendectomy: No Hx Cholecystectomy: No Hx Genitourinary Surgery: Yes (left kidney stone removed in 2016) Hx Section: No Hx Orthopedic Surgery: No Other Surgical History: left nephrectomy 2016 Anesthesia Reaction: No - PPD History Results: cxray(-)04/29/18 - Smoking Cessation Smoking history: Unknown if ever smoked Have you smoked in the past 12 months: No Aproximately how many cigarettes per day: 1 If you are a former smoker, when did you quit?: at age 19 Cigars Per Day: 1 Hx Chewing Tobacco Use: No - Substances abused Alcohol Substance route: Oral Frequency: Daily Amount used: 1 PINT VODKA + 2PACK BEER Age of first use: 18 Date of last use: 04/15/19 Family Disease History - Family Disease History Family Disease History: Heart Disease: Mother (HTN), Other: Father (Alcohol), Mother, Brother (Alcohol) Admission Physical Exam BHS - Physical General Appearance: Yes: No Apparent Distress HEENTM: Yes: Hearing grossly Normal, Normal Voice Respiratory: Yes: Lungs Clear Cardiology: Yes: Regular Rhythm, Regular Rate, S1, S2 Musculoskeletal: Yes: Gait Steady Neurological: Yes: Fully Oriented, Alert, Motor Strength 5/5 - Diagnostic (1) Alcohol dependence with uncomplicated withdrawal Current Visit: Yes Status: Acute Breathalyzer - Breathalyzer Breathalyzer: 0.074 Urine Drug Screen - Test Device Lot number: [id number] Expiration date: 12/12/20 - Control Is test valid?: Yes - Results Drug screen NEGATIVE: No Urine drug screen results: BZO-Benzodiazepines Inpatient Rehab Admission - Rehab Decision to Admit Inpatient rehab admission?: No
[2019-04-18] MEDS ORDERED: MAGNESIUM CITRATE 300 ML BOTTLE PO PRN (14:21)
[2019-04-18] MEDS ORDERED: MAGNESIUM HYDROX 2400MG/30ML ORAL SUSPENSION 30 ML CUP PO PRN (14:21)
[2019-04-18] MEDS ORDERED: BISMUTH SUBSALICYLATE 524 MG/30 ML UD PO PRN (14:21)
[2019-04-18] MEDS ORDERED: IBUPROFEN 400 MG TABLET (FP) PO PRN (14:21)
[2019-04-18] MEDS ORDERED: MENTHOL/PHENOL 1 EACH UD MM PRN (14:21)
[2019-04-18] MEDS ORDERED: ACETAMINOPHEN 325 MG TABLET (FP) PO PRN ×2 (14:21)
[2019-04-18] MEDS ORDERED: chlordiazePOXIDE HCL 10 MG CAPSULE PO PRN (14:21)
[2019-04-18] MEDS ORDERED: MAG HYDROX/AL HYDROX/SIMETH 30 ML UNIT-DOSE CUP PO PRN (14:21)
[2019-04-18] MEDS ORDERED: MELATONIN 5 MG TABLETS PO PRN (14:21)
[2019-04-18] MEDS ORDERED: hydrOXYzine PAMOATE 25 MG CAPSULE (FP) PO PRN (14:21)
[2019-04-18 14:48] VITALS: BMI 32.1
[2019-04-18] MEDS ORDERED: chlordiazePOXIDE HCL 25 MG CAPSULE PO ONE (15:20)
[2019-04-18] MEDS: metFORMIN HCL 500 MG TABLET (FP) PO SCH (16:59)
[2019-04-18] MEDS: INSULIN SLIDING SCALE (NOVOLOG) 1 VIAL SQ SCH (17:00)
[2019-04-18] MEDS: METOPROLOL TARTRATE 50 MG TABLET (FP) PO SCH (22:20)
[2019-04-18] MEDS: levETIRAcetam 500 MG TABLET (FP) PO SCH (22:20)
[2019-04-18] MEDS: ATORVASTATIN CA 10 MG TABLET (FP) PO SCH (22:20)
[2019-04-18] MEDS: GABAPENTIN 300 MG CAPSULE (FP) PO SCH (22:20)
[2019-04-18] MEDS: THIAMINE HCL 100 MG TABLET (FP) PO SCH (22:20)
[2019-04-18] MEDS: RANITIDINE HCL 150 MG TABLET (FP) PO SCH (22:20)
[2019-04-18] MEDS: chlordiazePOXIDE HCL 25 MG CAPSULE PO SCH (22:20)
[2019-04-19] MEDS: chlordiazePOXIDE HCL 25 MG CAPSULE PO SCH ×3 (05:33→22:29)
[2019-04-19] MEDS: GABAPENTIN 300 MG CAPSULE (FP) PO SCH ×3 (05:33→22:29)
[2019-04-19] MEDS: metFORMIN HCL 500 MG TABLET (FP) PO SCH ×2 (07:42→18:25)
[2019-04-19] MEDS: INSULIN SLIDING SCALE (NOVOLOG) 1 VIAL SQ SCH ×2 (07:44→16:25)
[2019-04-19] MEDS: METOPROLOL TARTRATE 50 MG TABLET (FP) PO SCH ×2 (10:36→22:29)
[2019-04-19] MEDS: POTASSIUM CHLORIDE TABS 20 MEQ TABLET.ER (FP) PO SCH (10:37)
[2019-04-19] MEDS ORDERED: hydrOXYzine HCL 25 MG TABLET (FP) PO PRN (10:38)
[2019-04-19] MEDS: ASPIRIN 81 MG CHEWABLE TABLETS PO SCH (10:40)
[2019-04-19] MEDS: levETIRAcetam 500 MG TABLET (FP) PO SCH ×2 (10:41→22:29)
[2019-04-19] MEDS: RANITIDINE HCL 150 MG TABLET (FP) PO SCH ×2 (10:41→22:29)
[2019-04-19] MEDS: PRENATAL VITAMINS W/ FOLIC ACID TABLET (FP) PO SCH (10:41)
[2019-04-19] MEDS: CALCIUM 500MG/VIT-D 200 UNITS COMBO TABLET (FP) PO SCH (10:42)
[2019-04-19] MEDS: MAGNESIUM OXIDE 400 MG TABLET (FP) PO SCH (13:33)
--- NOTE | 2019-04-19 13:51 | PN ---
[facility] CIWA - CIWA Score Nausea/Vomitin-No Nausea/No Vomiting Muscle Tremors: None Anxiety: 4-Mod. Anxious/Guarded Agitation: 1-Slight > Activity Paroxysmal Sweats: 2 Orientation: 0-Oriented Tacttile Disturbances: 0-None Auditory Disturbances: 0-None Visual Disturbances: 1-Very Mild Sensitivity Headache: 0-None Present CIWA-Ar Total Score: 8 S Progress Note (SOAP) Subjective: Anxious, Fatigue, Sweating. Objective: PATIENT A & O X 3, OBSERVED AMBULATING ON UNIT UNASSISTED. IN NO ACUTE DISTRESS. 04/19/19 13:47 Vital Signs Temperature 98.5 F 04/19/19 09:41 Pulse Rate 84 04/19/19 09:41 Respiratory Rate 18 04/19/19 09:41 Blood Pressure 158/97 04/19/19 09:41 O2 Sat by Pulse Oximetry (%) Laboratory Tests 04/18/19 04/18/19 04/19/19 14:42 16:16 05:35 POC Glucometer 147 192 148 RESULTS OF DETOX ADMISSION LABS NOTED. 04/19/19 13:49 Assessment: 04/19/19 13:49 WITHDRAWAL SYMPTOMS. HYPOKALEMIA. HYPOCALCEMIA. Plan: CONTINUE DETOX. CONTINUE K-DUR FOR LOW ADMISSION K LEVEL. RE-CHECK K LEVEL TOMORROW AM TO SEE IF ANY IMPROVEMENT. CONTINUE OSCAL FOR LOW ADMISSION CA LEVEL.
[2019-04-19] MEDS: THIAMINE HCL 100 MG TABLET (FP) PO SCH (22:29)
[2019-04-19] MEDS: ATORVASTATIN CA 10 MG TABLET (FP) PO SCH (22:29)
[2019-04-20] MEDS: chlordiazePOXIDE 5 MG CAPSULE PO SCH ×3 (05:48→22:22)
[2019-04-20] MEDS: GABAPENTIN 300 MG CAPSULE (FP) PO SCH ×3 (05:48→22:22)
[2019-04-20] MEDS: INSULIN SLIDING SCALE (NOVOLOG) 1 VIAL SQ SCH ×2 (08:31→16:59)
[2019-04-20] MEDS: metFORMIN HCL 500 MG TABLET (FP) PO SCH ×2 (08:33→16:58)
[2019-04-20] MEDS: POTASSIUM CHLORIDE TABS 20 MEQ TABLET.ER (FP) PO SCH (10:47)
[2019-04-20] MEDS: MAGNESIUM OXIDE 400 MG TABLET (FP) PO SCH (10:47)
[2019-04-20] MEDS: METOPROLOL TARTRATE 50 MG TABLET (FP) PO SCH ×2 (10:47→22:22)
[2019-04-20] MEDS: RANITIDINE HCL 150 MG TABLET (FP) PO SCH ×2 (10:48→22:23)
[2019-04-20] MEDS: ASPIRIN 81 MG CHEWABLE TABLETS PO SCH (10:48)
[2019-04-20] MEDS: levETIRAcetam 500 MG TABLET (FP) PO SCH ×2 (10:48→22:22)
[2019-04-20] MEDS: CALCIUM 500MG/VIT-D 200 UNITS COMBO TABLET (FP) PO SCH (10:48)
[2019-04-20] MEDS: PRENATAL VITAMINS W/ FOLIC ACID TABLET (FP) PO SCH (10:48)
[2019-04-20 10:56] LABS: POTASSIUM 3.6 mmol/L (3.5-5.1)
--- NOTE | 2019-04-20 11:39 | PN ---
S CIWA - CIWA Score Nausea/Vomitin-No Nausea/No Vomiting Muscle Tremors: 2 Anxiety: 1-Mildly Anxious Agitation: 2 Paroxysmal Sweats: No Perspiration Orientation: 0-Oriented Tacttile Disturbances: 0-None Auditory Disturbances: 0-None Visual Disturbances: 0-None Headache: 1-Very Mild CIWA-Ar Total Score: 6 BHS Progress Note (SOAP) Subjective: feeling fine today mild tremor social with peers in day room less anxious mild headache long history of hypertension resume amlodipine 10 mg po daily Objective: 04/20/19 11:40 Vital Signs Temperature 97.6 F 04/20/19 09:33 Pulse Rate 90 04/20/19 09:33 Respiratory Rate 20 04/20/19 09:33 Blood Pressure 149/94 04/20/19 09:33 O2 Sat by Pulse Oximetry (%) Laboratory Last Values Potassium 3.6 mmol/L (3.5-5.1) 04/20/19 07:42 POC Glucometer 114 UNITS (80-120) 04/20/19 05:51 AST 195 U/L (15-37) H 04/20/19 07:42 lab noted discontinue K+ supplement Assessment: 04/20/19 11:40 alcohol withdrawal sx Plan: continue alcohol detox
[2019-04-20] MEDS: amLODIPine BESYLATE 10 MG TABLET (FP) PO SCH (14:54)
[2019-04-20] MEDS: THIAMINE HCL 100 MG TABLET (FP) PO SCH (22:22)
[2019-04-20] MEDS: ATORVASTATIN CA 10 MG TABLET (FP) PO SCH (22:23)
[2019-04-21] MEDS ORDERED: chlordiazePOXIDE HCL 10 MG CAPSULE PO PRN
[2019-04-21] MEDS: GABAPENTIN 300 MG CAPSULE (FP) PO SCH ×3 (05:59→22:26)
[2019-04-21] MEDS: chlordiazePOXIDE HCL 10 MG CAPSULE PO SCH ×3 (05:59→22:26)
[2019-04-21] MEDS: metFORMIN HCL 500 MG TABLET (FP) PO SCH ×2 (06:00→17:37)
[2019-04-21] MEDS: INSULIN SLIDING SCALE (NOVOLOG) 1 VIAL SQ SCH ×2 (06:50→17:37)
[2019-04-21] MEDS: RANITIDINE HCL 150 MG TABLET (FP) PO SCH ×2 (10:18→22:26)
[2019-04-21] MEDS: levETIRAcetam 500 MG TABLET (FP) PO SCH ×2 (10:18→22:26)
[2019-04-21] MEDS: MAGNESIUM OXIDE 400 MG TABLET (FP) PO SCH (10:18)
[2019-04-21] MEDS: PRENATAL VITAMINS W/ FOLIC ACID TABLET (FP) PO SCH (10:18)
[2019-04-21] MEDS: amLODIPine BESYLATE 10 MG TABLET (FP) PO SCH (10:18)
[2019-04-21] MEDS: ASPIRIN 81 MG CHEWABLE TABLETS PO SCH (10:18)
[2019-04-21] MEDS: CALCIUM 500MG/VIT-D 200 UNITS COMBO TABLET (FP) PO SCH (10:20)
[2019-04-21] MEDS: METOPROLOL TARTRATE 50 MG TABLET (FP) PO SCH ×2 (10:21→22:26)
--- NOTE | 2019-04-21 11:56 | PN ---
S CIWA - CIWA Score Nausea/Vomitin-No Nausea/No Vomiting Muscle Tremors: 2 Anxiety: 1-Mildly Anxious Agitation: 1-Slight > Activity Paroxysmal Sweats: No Perspiration Orientation: 0-Oriented Tacttile Disturbances: 0-None Auditory Disturbances: 0-None Visual Disturbances: 0-None Headache: 0-None Present CIWA-Ar Total Score: 4 BHS Progress Note (SOAP) Subjective: feeling better today asking for clothing preparing for discharge tomorrow less tremor encourage aftercare at [facility] Objective: 04/21/19 11:57 Vital Signs Temperature 96.7 F L 04/21/19 09:02 Pulse Rate 79 04/21/19 09:02 Respiratory Rate 16 04/21/19 09:02 Blood Pressure 119/73 04/21/19 09:02 O2 Sat by Pulse Oximetry (%) Laboratory Last Values Potassium 3.6 mmol/L (3.5-5.1) 04/20/19 07:42 POC Glucometer 153 UNITS (80-120) 04/21/19 06:01 AST 195 U/L (15-37) H 04/20/19 07:42 04/21/19 11:57 lab noted patient has appointment with his primary care provider 04/22/10 Assessment: 04/21/19 12:01 alcohol withdrawal sx Plan: continue alcohol detox
[2019-04-21] MEDS: THIAMINE HCL 100 MG TABLET (FP) PO SCH (22:26)
[2019-04-21] MEDS: ATORVASTATIN CA 10 MG TABLET (FP) PO SCH (22:26)
[2019-04-22] MEDS ORDERED: chlordiazePOXIDE HCL 10 MG CAPSULE PO ONE (05:00)
[2019-04-22] MEDS: metFORMIN HCL 500 MG TABLET (FP) PO SCH (06:12)
[2019-04-22] MEDS: GABAPENTIN 300 MG CAPSULE (FP) PO SCH (06:12)
[2019-04-22] MEDS: INSULIN SLIDING SCALE (NOVOLOG) 1 VIAL SQ SCH (06:12)
[2019-04-22 06:53] VITALS: BP 137/88; PULSE 89; TEMP 98.7
--- NOTE | 2019-04-22 13:27 | DS ---
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 the opportunity to assess nor evaluate the patient Pertinent Past History: encourage the patient to bring in medication list and lab report to follow up health service - Physical Exam Results Vital Signs: Vital Signs Temperature 98.7 F 04/22/19 06:53 Pulse Rate 89 04/22/19 06:53 Respiratory Rate 18 04/22/19 06:53 Blood Pressure 137/88 04/22/19 06:53 O2 Sat by Pulse Oximetry (%) Pertinent Admission Physical Exam Findings: alcohol withdrawal sx Laboratory Last Values Potassium 3.6 mmol/L (3.5-5.1) 04/20/19 07:42 POC Glucometer 163 UNITS (80-120) 04/21/19 16:21 AST 195 U/L (15-37) H 04/20/19 07:42 see ER 04/18/19lab report - Treatment Hospital Course: Detox Protocol Followed, Detoxed Safely, Responded well, Discharged Condition Good, Rehab Referral Accepted Patient has Accepted a Rehab Referral to: [facility] - Medication Discharge Medications: Ambulatory Orders Aspirin [ASA -] 81 mg PO DAILY #30 tab.chew 03/14/19 Ranitidine [Zantac -] 150 mg PO BID 04/16/19 Atorvastatin Calcium [Lipitor] 10 mg PO HS 04/18/19 Calcium 500Mg/Vit-D 200 Units [Os-Jarrett 500+D -] 1 combo PO DAILY 04/18/19 Magnesium Oxide [Mag-Ox -] 800 mg PO DAILY 5 Days #10 tablet 04/18/19 Potassium Chloride [K-Dur -] 40 meq PO DAILY 3 Days #2 tablet.er 04/18/19 Amlodipine Besylate [Norvasc -] 10 mg PO DAILY #30 tablet 04/21/19 Gabapentin [Neurontin] 600 mg PO TID #90 tablet 04/21/19 Metoprolol Tartrate [Lopressor -] 50 mg PO BID #60 tablet 04/21/19 levETIRAcetam [Keppra -] 500 mg PO BID #60 tablet 07/08/19 metFORMIN HCL [Glucophage -] 1,000 mg PO BID@0700,0489 #60 tablet 04/21/19 - Diagnosis (1) Alcohol dependence with uncomplicated withdrawal Status: Acute (2) DM2 (diabetes mellitus, type 2) Status: Chronic Qualifiers: Diabetes mellitus nursing home insulin use: without nursing home use Diabetes mellitus complication status: without complication Qualified Code(s): E11.9 - Type 2 diabetes mellitus without complications (3) Essential (primary) hypertension Status: Chronic (4) Hyperlipemia Status: Chronic Qualifiers: Hyperlipidemia type: pure hypercholesterolemia Qualified Code(s): E78.00 - Pure hypercholesterolemia, unspecified; E78.0 - Pure hypercholesterolemia (5) Hypertension Status: Chronic Qualifiers: Hypertension type: essential hypertension Qualified Code(s): I10 - Essential (primary) hypertension (6) PPD positive, treated Status: Resolved - AMA Did Patient Leave Against Medical Advice: No
== END 2019-04-22 07:41 | disposition home or self-care (01) | DRG 775 ==
LOC: YASAS 13:52 → Y3N 14:52
PROVIDERS: ADMIT Surgery; ATTEND Surgery
PROC: HZ2ZZZZ Detoxification Services for Substance Abuse Treatment (ICD-10-PCS; principal; 2019-04-18)
DX: F10.230 Alcohol dependence with withdrawal, uncomplicated (principal); E83.51 Hypocalcemia; E87.6 Hypokalemia; I10 Essential (primary) hypertension; E78.00 Pure hypercholesterolemia, unspecified; E11.9 Type 2 diabetes mellitus without complications; Z59.0 Homelessness
CPT/HCPCS: 36415; 82962; 84132; 84450

== ENCOUNTER 2019-05-27 10:24 | Inpatient (IN) | payer OTHER ==
[2019-05-27 10:52] VITALS: BMI 33.0
--- NOTE | 2019-05-27 11:32 | HP ---
CIWA Score Nausea/Vomitin-Mild Nausea/No Vomiting Muscle Tremors: 3 Anxiety: 2 Agitation: 1-Slight > Activity Paroxysmal Sweats: 4-Forehead w/Sweat Beads Orientation: 3-Disoriented Date>2 days Tacttile Disturbances: 1-Very Mild Itch/Numbness Auditory Disturbances: 0-None Visual Disturbances: 0-None Headache: 1-Very Mild (appropriate for alcohol detox) CIWA-Ar Total Score: 16 - Admission Criteria [facility]AS[facility] Guidelines: Admission for Medically Managed Detox: Requires at least one of the followin. CIWA greater than 12 2. Seizures within the past 24 hours 3. Delirium tremens within the past 24 hours 4. Hallucinations within the past 24 hours 5. Acute intervention needed for co occurring medical disorder 6. Acute intervention needed for co occurring psychiatric disorder 7. Severe withdrawal that cannot be handled at a lower level of care (continued vomiting, continued diarrhea, abnormal vital signs) requiring intravenous medication and/or fluids 8. Admission ROS S - HPI Chief Complaint: " I am drinking too much and I had to go to the alf to sleep it off" Allergies/Adverse Reactions: Allergies Allergy/AdvReac Type Severity Reaction Status Date / Time RASHAD Inhibitors Allergy Severe Swelling Verified 05/27/19 10:37 lisinopril Allergy Severe Swelling Verified 05/27/19 10:37 History of Present Illness: Patient is 54 year old black male with multiple admissions to detox. Last admission in 04/2019. Patient has had blackouts in the past. Patient also has had seizures upon withdrawing. Patient is drinking 6 pack of beers daily. He is drinking a pint of vodka per day. Patient chew tobacco $10 per day PMHx: DM, SD 5 years ago, History of Pancreatitis, HTN , Hypercholesterolemia PsurgHx: Kidney stones 2 years ago, removed Patient has no legal issues pending. Homeless and in alf system. Patient has no family support here, but [place] . Exam Limitations: No Limitations - Ebola screening Have you traveled outside of the country in the last 21 days: No Have you had contact with anyone from an Ebola affected area: No Have you been sick,other than usual withdrawal symptoms: No Do you have a fever: No - Review of Systems Constitutional: Diaphoresis, Loss of Appetite EENT: reports: No Symptoms Reported Respiratory: reports: No Symptoms reported Cardiac: reports: No Symptoms Reported GI: reports: Nausea, Indigestion, Abdominal cramping : reports: No Symptoms Reported Musculoskeletal: reports: Muscle Pain Integumentary: reports: No Symptoms Reported Neuro: reports: Headache Endocrine: reports: No Symptoms Reported Hematology: reports: No Symptoms Reported Psychiatric: reports: Judgement Intact (not fully oriented to time.) Other Systems: Reviewed and Negative Patient History - Patient Medical History Hx Anemia: No Hx Asthma: No Hx Chronic Obstructive Pulmonary Disease (COPD): No Hx Cancer: No Hx Cardiac Disorders: No Hx Congestive Heart Failure: No Hx Hypertension: Yes Hx Hypercholesterolemia: Yes (Gemfibra) Hx Pacemaker: No HX Cerebrovascular Accident: No Hx Seizures: No Hx Dementia: No Hx Diabetes: Yes Hx Gastrointestinal Disorders: No Hx Liver Disease: No Hx Genitourinary Disorders: No Hx Sexually Transmitted Disorders: No Hx Renal Disease (ESRD): No Hx Thyroid Disease: No Hx Human Immunodeficiency Virus (HIV): No (Negative 2018 in 09/01) Hx Hepatitis C: No Hx Depression: No Hx Suicide Attempt: No Hx Bipolar Disorder: No Hx Schizophrenia: No - Patient Surgical History Past Surgical History: Yes Hx Neurologic Surgery: No Hx Cataract Extraction: No Hx Cardiac Surgery: No Hx Lung Surgery: No Hx Breast Surgery: No Hx Breast Biopsy: No Hx Abdominal Surgery: No Hx Appendectomy: No Hx Cholecystectomy: No Hx Genitourinary Surgery: Yes (left kidney stone removed in 2015) Hx Section: No Hx Orthopedic Surgery: No Other Surgical History: left nephrectomy 2016 Anesthesia Reaction: No - PPD History Results: cxray(-)04/29/18 - Smoking Cessation Smoking history: Unknown if ever smoked Have you smoked in the past 12 months: No Aproximately how many cigarettes per day: 1 If you are a former smoker, when did you quit?: at age 19 Cigars Per Day: 1 Hx Chewing Tobacco Use: No - Substances abused Alcohol Substance route: Oral Frequency: Daily Amount used: 1 PINT VODKA + 2PACK BEER Age of first use: 18 Date of last use: 05/27/19 Family Disease History - Family Disease History Family Disease History: Heart Disease: Mother (HTN), Other: Father (Alcohol), Mother, Brother (Alcohol) Admission Physical Exam BHS - Vital Signs Vital Signs: Vital Signs - 24 hr 05/27/19 10:36 Temperature 98.1 F Pulse Rate 113 H Respiratory 15 Rate Blood Pressure 125/77 - Physical General Appearance: Yes: Mild Distress, Alcohol on Breath HEENTM: Yes: EOMI, Hearing grossly Normal, Normal ENT Inspection, Normal Voice, FIDEL, Pharynx Normal Respiratory: Yes: Chest Non-Tender, Lungs Clear, Normal Breath Sounds Neck: Yes: No masses,lesions,Nodules, Supple, Trachea in good position Breast: Yes: Within Normal Limits Cardiology: Yes: Regular Rhythm, Regular Rate, S1, S2, Tachycardia Abdominal: Yes: Flat, Increased Bowel Sounds, Protuberent Genitourinary: Yes: Burning Back: Yes: Normal Inspection Musculoskeletal: Yes: full range of Motion, Other (unsteady gait, intoxicated.) Extremities: Yes: Normal Capillary Refill, Normal Inspection, Normal Range of Motion Neurological: Yes: traffic attendant II-XII NML intact, Fully Oriented, Alert, Motor Strength 5/5, Normal Mood/Affect Integumentary: Yes: Normal Color, Warm Lymphatic: Yes: Within Normal Limits - Diagnostic (1) Alcohol dependence with uncomplicated withdrawal Current Visit: Yes Status: Acute (2) Diabetes mellitus treated with oral medication Current Visit: Yes Status: Chronic (3) Essential (primary) hypertension Current Visit: Yes Status: Chronic (4) Hx of coronary artery disease Current Visit: No Status: Chronic (5) Hyperlipemia Current Visit: Yes Status: Chronic Qualifiers: Hyperlipidemia type: pure hypercholesterolemia Qualified Code(s): E78.00 - Pure hypercholesterolemia, unspecified; E78.0 - Pure hypercholesterolemia (6) Hypertension Current Visit: No Status: Chronic Qualifiers: Hypertension type: essential hypertension Qualified Code(s): I10 - Essential (primary) hypertension (7) Seizure disorder Current Visit: No Status: Chronic Cleared for Admission [facility] - Detox or Rehab [facility] Level of Care: Medically Managed Detox Regimen/Protocol: Librium Screened but not Admitted - Documentation of Visit Screened but not Admitted: No Breathalyzer - Breathalyzer Breathalyzer: 0.074 Vital Signs - Vital Signs Vital signs refused: No Temperature: 98.1 F Temperature source: Oral Pulse Rate: 113 Respiratory Rate: 15 Blood Pressure: 125/77 BP Location: Left Arm Blood Pressure position: Sitting - Height Height: 5 ft 11 in - Weight Weight: 237 lb Weight measurement method: Standing scale - BMI Body Mass Index (BMI): 33.0 - Bowel Function Bowel Movement: No Urine Drug Screen - Test Device Lot number: [id number] Expiration date: 12/12/20 - Control Is test valid?: Yes - Results Drug screen NEGATIVE: No Urine drug screen results: BZO-Benzodiazepines Inpatient Rehab Admission - Rehab Decision to Admit Inpatient rehab admission?: No
[2019-05-27] MEDS ORDERED: MELATONIN 5 MG TABLETS PO PRN (11:49)
[2019-05-27] MEDS ORDERED: IBUPROFEN 400 MG TABLET (FP) PO PRN (11:49)
[2019-05-27] MEDS ORDERED: MAG HYDROX/AL HYDROX/SIMETH 30 ML UNIT-DOSE CUP PO PRN (11:49)
[2019-05-27] MEDS ORDERED: MAGNESIUM CITRATE 300 ML BOTTLE PO PRN (11:49)
[2019-05-27] MEDS ORDERED: ACETAMINOPHEN 325 MG TABLET (FP) PO PRN ×2 (11:49)
[2019-05-27] MEDS ORDERED: MENTHOL/PHENOL 1 EACH UD MM PRN (11:49)
[2019-05-27] MEDS ORDERED: BISMUTH SUBSALICYLATE 524 MG/30 ML UD PO PRN (11:49)
[2019-05-27] MEDS ORDERED: MAGNESIUM HYDROX 2400MG/30ML ORAL SUSPENSION 30 ML CUP PO PRN (11:49)
[2019-05-27] MEDS ORDERED: METHOCARBAMOL 500 MG TABLET PO PRN (11:49)
[2019-05-27] MEDS ORDERED: hydrOXYzine PAMOATE 25 MG CAPSULE (FP) PO PRN (11:49)
[2019-05-27] MEDS ORDERED: PATIENT'S OWN MEDICATION (NON-FORMULARY) (Lisinopril [Prinivil -] 40 MG) PO SCH (12:00)
[2019-05-27] MEDS: ASPIRIN 81 MG CHEWABLE TABLETS PO SCH (13:31)
[2019-05-27] MEDS: ATENOLOL 50 MG TABLET (FP) PO SCH (13:32)
[2019-05-27] MEDS: GABAPENTIN 300 MG CAPSULE (FP) PO SCH ×2 (13:32→22:36)
[2019-05-27] MEDS: chlordiazePOXIDE HCL 25 MG CAPSULE PO PRN ×2 (13:32→22:45)
[2019-05-27] MEDS: levETIRAcetam 500 MG TABLET (FP) PO SCH ×2 (13:32→22:36)
[2019-05-27 15:38] LABS: HEMATOCRIT 32.3 % (35.4-49); MCHC 33.9 g/dl (32.0-35.9); MEAN CELL VOLUME 88.3 fl (80-96); PLATELET COUNT 271 K/MM3 (134-434); RBC 3.65 M/mm3 (4.00-5.60); RDW 16.1 % (11.9-15.9); WHITE BLOOD COUNT 4.8 K/mm3 (4.0-10.0)
[2019-05-27 15:45] LABS: ALBUMIN 3.4 g/dl (3.4-5.0); BILIRUBIN,TOTAL 0.2 mg/dL (0.2-1); BLOOD UREA NITROGEN 32.9 mg/dL (7-18); CALCIUM 8.3 mg/dL (8.5-10.1); CREATININE 1.1 mg/dL (0.55-1.3); POTASSIUM 3.9 mmol/L (3.5-5.1); TOT PROT 7.8 g/dl (6.4-8.2)
[2019-05-27] MEDS: metFORMIN HCL 500 MG TABLET (FP) PO SCH (16:43)
[2019-05-27] MEDS: GEMFIBROZIL 600 MG TABLET (FP) PO SCH (17:06)
[2019-05-27] MEDS: chlordiazePOXIDE HCL 25 MG CAPSULE PO SCH (22:36)
[2019-05-27] MEDS: THIAMINE HCL 100 MG TABLET (FP) PO SCH (22:37)
[2019-05-28] MEDS: GABAPENTIN 300 MG CAPSULE (FP) PO SCH ×3 (05:20→22:33)
[2019-05-28] MEDS: chlordiazePOXIDE HCL 25 MG CAPSULE PO SCH ×4 (05:21→22:33)
[2019-05-28] MEDS: metFORMIN HCL 500 MG TABLET (FP) PO SCH ×2 (07:47→18:00)
[2019-05-28] MEDS: GEMFIBROZIL 600 MG TABLET (FP) PO SCH ×2 (07:47→18:00)
[2019-05-28] MEDS: ATENOLOL 50 MG TABLET (FP) PO SCH (10:25)
[2019-05-28] MEDS: PRENATAL VITAMINS W/ FOLIC ACID TABLET (FP) PO SCH (10:26)
[2019-05-28] MEDS: levETIRAcetam 500 MG TABLET (FP) PO SCH ×2 (10:26→22:33)
[2019-05-28] MEDS: ASPIRIN 81 MG CHEWABLE TABLETS PO SCH (10:26)
--- NOTE | 2019-05-28 13:56 | PN ---
[facility] CIWA - CIWA Score Nausea/Vomitin-Mild Nausea/No Vomiting Muscle Tremors: 4-Moderate,w/Arms Extend Anxiety: 3 Agitation: 3 Paroxysmal Sweats: 2 Orientation: 0-Oriented Tacttile Disturbances: 1-Very Mild Itch/Numbness Auditory Disturbances: 0-None Visual Disturbances: 0-None Headache: 0-None Present CIWA-Ar Total Score: 14 S Progress Note (SOAP) Subjective: 54 years old male admitted on 05/27/19 for acute alcohol withdrawal sx management doing well with librium detox protocol less tremor worry about his insurance status collaborate with counselor that insurance asset management coordinator will contact the patient Objective: 05/28/19 14:00 Vital Signs Temperature 98.7 F 05/28/19 13:31 Pulse Rate 83 05/28/19 13:31 Respiratory Rate 18 05/28/19 13:31 Blood Pressure 137/83 05/28/19 13:31 O2 Sat by Pulse Oximetry (%) Laboratory Last Values WBC 4.8 K/mm3 (4.0-10.0) 05/27/19 11:40 RBC 3.65 M/mm3 (4.00-5.60) L 05/27/19 11:40 Hgb 11.0 GM/dL (11.7-16.9) L 05/27/19 11:40 Hct 32.3 % (35.4-49) L 05/27/19 11:40 MCV 88.3 fl (80-96) 05/27/19 11:40 MCH 30.0 pg (25.7-33.7) 05/27/19 11:40 MCHC 33.9 g/dl (32.0-35.9) 05/27/19 11:40 RDW 16.1 % (11.9-15.9) H 05/27/19 11:40 Plt Count 271 K/MM3 (134-434) D 05/27/19 11:40 MPV 7.0 fl (7.5-11.1) L 05/27/19 11:40 Sodium 142 mmol/L (136-145) 05/27/19 11:40 Potassium 3.9 mmol/L (3.5-5.1) 05/27/19 11:40 Chloride 110 mmol/L (98-107) H 05/27/19 11:40 Carbon Dioxide 24 mmol/L (21-32) 05/27/19 11:40 Anion Gap 8 MMOL/L (8-16) 05/27/19 11:40 BUN 32.9 mg/dL (7-18) H 05/27/19 11:40 Creatinine 1.1 mg/dL (0.55-1.3) 05/27/19 11:40 Est GFR (CKD-EPI)AfAm 87.13 05/27/19 11:40 Est GFR (CKD-EPI)NonAf 75.17 05/27/19 11:40 POC Glucometer 145 UNITS (80-120) 05/28/19 05:19 Random Glucose 150 mg/dL (74-106) H 05/27/19 11:40 Calcium 8.3 mg/dL (8.5-10.1) L 05/27/19 11:40 Total Bilirubin 0.2 mg/dL (0.2-1) 05/27/19 11:40 AST 106 U/L (15-37) H 05/27/19 11:40 ALT 74 U/L (13-61) H 05/27/19 11:40 Alkaline Phosphatase 123 U/L (45-117) H 05/27/19 11:40 Total Protein 7.8 g/dl (6.4-8.2) 05/27/19 11:40 Albumin 3.4 g/dl (3.4-5.0) 05/27/19 11:40 RPR Titer Nonreactive (NONREACTIVE) 05/27/19 11:40 lab noted bun 32.9 ast 106 encourage oral fluid and repeat K+ and bun discuss alcohol misuse related liver enzyme elevation 05/28/19 14:02 Assessment: 05/28/19 14:02 alcohol withdrawal sx Plan: continue librium detox regimen
[2019-05-28] MEDS ORDERED: cloNIDine HCL 0.1 MG TABLET PO PRN (21:51)
[2019-05-28] MEDS: THIAMINE HCL 100 MG TABLET (FP) PO SCH (22:33)
[2019-05-28] MEDS ORDERED: cloNIDine HCL 0.1 MG TABLET PO ONE (23:33)
[2019-05-29] MEDS: chlordiazePOXIDE HCL 25 MG CAPSULE PO SCH ×4 (05:18→22:34)
[2019-05-29] MEDS: metFORMIN HCL 500 MG TABLET (FP) PO SCH ×2 (06:08→17:20)
[2019-05-29] MEDS: GEMFIBROZIL 600 MG TABLET (FP) PO SCH ×2 (06:08→17:20)
[2019-05-29] MEDS: GABAPENTIN 300 MG CAPSULE (FP) PO SCH ×3 (06:13→22:34)
[2019-05-29 10:14] LABS: BLOOD UREA NITROGEN 10.3 mg/dL (7-18)
[2019-05-29] MEDS: levETIRAcetam 500 MG TABLET (FP) PO SCH ×2 (10:17→22:34)
[2019-05-29] MEDS: PRENATAL VITAMINS W/ FOLIC ACID TABLET (FP) PO SCH (10:17)
[2019-05-29] MEDS: ASPIRIN 81 MG CHEWABLE TABLETS PO SCH (10:17)
[2019-05-29] MEDS: ATENOLOL 50 MG TABLET (FP) PO SCH (10:18)
--- NOTE | 2019-05-29 16:49 | PN ---
[facility] CIWA - CIWA Score Nausea/Vomitin-Mild Nausea/No Vomiting Muscle Tremors: 3 Anxiety: 3 Agitation: 3 Paroxysmal Sweats: 2 Orientation: 0-Oriented Tacttile Disturbances: 1-Very Mild Itch/Numbness Auditory Disturbances: 0-None Visual Disturbances: 0-None Headache: 0-None Present CIWA-Ar Total Score: 13 S Progress Note (SOAP) Subjective: doing well with librium detox regimen less tremor encourage move slow avoid sudden movement Objective: 05/29/19 16:49 Vital Signs Temperature 99.4 F 05/29/19 13:46 Pulse Rate 93 H 05/29/19 13:46 Respiratory Rate 18 05/29/19 13:46 Blood Pressure 135/91 05/29/19 13:46 O2 Sat by Pulse Oximetry (%) Laboratory Last Values WBC 4.8 K/mm3 (4.0-10.0) 05/27/19 11:40 RBC 3.65 M/mm3 (4.00-5.60) L 05/27/19 11:40 Hgb 11.0 GM/dL (11.7-16.9) L 05/27/19 11:40 Hct 32.3 % (35.4-49) L 05/27/19 11:40 MCV 88.3 fl (80-96) 05/27/19 11:40 MCH 30.0 pg (25.7-33.7) 05/27/19 11:40 MCHC 33.9 g/dl (32.0-35.9) 05/27/19 11:40 RDW 16.1 % (11.9-15.9) H 05/27/19 11:40 Plt Count 271 K/MM3 (134-434) D 05/27/19 11:40 MPV 7.0 fl (7.5-11.1) L 05/27/19 11:40 Sodium 142 mmol/L (136-145) 05/27/19 11:40 Potassium 3.9 mmol/L (3.5-5.1) 05/27/19 11:40 Chloride 110 mmol/L (98-107) H 05/27/19 11:40 Carbon Dioxide 24 mmol/L (21-32) 05/27/19 11:40 Anion Gap 8 MMOL/L (8-16) 05/27/19 11:40 BUN 10.3 mg/dL (7-18) 05/29/19 07:00 Creatinine 1.1 mg/dL (0.55-1.3) 05/27/19 11:40 Est GFR (CKD-EPI)AfAm 87.13 05/27/19 11:40 Est GFR (CKD-EPI)NonAf 75.17 05/27/19 11:40 POC Glucometer 165 UNITS (80-120) 05/29/19 16:12 Random Glucose 150 mg/dL (74-106) H 05/27/19 11:40 Calcium 8.3 mg/dL (8.5-10.1) L 05/27/19 11:40 Total Bilirubin 0.2 mg/dL (0.2-1) 05/27/19 11:40 AST 73 U/L (15-37) H 05/29/19 07:00 ALT 74 U/L (13-61) H 05/27/19 11:40 Alkaline Phosphatase 123 U/L (45-117) H 05/27/19 11:40 Total Protein 7.8 g/dl (6.4-8.2) 05/27/19 11:40 Albumin 3.4 g/dl (3.4-5.0) 05/27/19 11:40 RPR Titer Nonreactive (NONREACTIVE) 05/27/19 11:40 lab noted
--- NOTE | 2019-05-29 16:54 | PN ---
[facility] CIWA - CIWA Score Nausea/Vomitin-Mild Nausea/No Vomiting Muscle Tremors: 3 Anxiety: 3 Agitation: 2 Paroxysmal Sweats: 2 Orientation: 0-Oriented Tacttile Disturbances: 0-None Auditory Disturbances: 0-None Visual Disturbances: 0-None Headache: 0-None Present CIWA-Ar Total Score: 11 [facility] Progress Note (SOAP) Subjective: doing better today tolerate librium well ambulating without assistance from bed to bathroom less tremor c/0 burning on urination Objective: 05/29/19 16:51 Vital Signs Temperature 99.4 F 05/29/19 13:46 Pulse Rate 93 H 05/29/19 13:46 Respiratory Rate 18 05/29/19 13:46 Blood Pressure 135/91 05/29/19 13:46 O2 Sat by Pulse Oximetry (%) Laboratory Last Values WBC 4.8 K/mm3 (4.0-10.0) 05/27/19 11:40 RBC 3.65 M/mm3 (4.00-5.60) L 05/27/19 11:40 Hgb 11.0 GM/dL (11.7-16.9) L 05/27/19 11:40 Hct 32.3 % (35.4-49) L 05/27/19 11:40 MCV 88.3 fl (80-96) 05/27/19 11:40 MCH 30.0 pg (25.7-33.7) 05/27/19 11:40 MCHC 33.9 g/dl (32.0-35.9) 05/27/19 11:40 RDW 16.1 % (11.9-15.9) H 05/27/19 11:40 Plt Count 271 K/MM3 (134-434) D 05/27/19 11:40 MPV 7.0 fl (7.5-11.1) L 05/27/19 11:40 Sodium 142 mmol/L (136-145) 05/27/19 11:40 Potassium 3.9 mmol/L (3.5-5.1) 05/27/19 11:40 Chloride 110 mmol/L (98-107) H 05/27/19 11:40 Carbon Dioxide 24 mmol/L (21-32) 05/27/19 11:40 Anion Gap 8 MMOL/L (8-16) 05/27/19 11:40 BUN 10.3 mg/dL (7-18) 05/29/19 07:00 Creatinine 1.1 mg/dL (0.55-1.3) 05/27/19 11:40 Est GFR (CKD-EPI)AfAm 87.13 05/27/19 11:40 Est GFR (CKD-EPI)NonAf 75.17 05/27/19 11:40 POC Glucometer 165 UNITS (80-120) 05/29/19 16:12 Random Glucose 150 mg/dL (74-106) H 05/27/19 11:40 Calcium 8.3 mg/dL (8.5-10.1) L 05/27/19 11:40 Total Bilirubin 0.2 mg/dL (0.2-1) 05/27/19 11:40 AST 73 U/L (15-37) H 05/29/19 07:00 ALT 74 U/L (13-61) H 05/27/19 11:40 Alkaline Phosphatase 123 U/L (45-117) H 05/27/19 11:40 Total Protein 7.8 g/dl (6.4-8.2) 05/27/19 11:40 Albumin 3.4 g/dl (3.4-5.0) 05/27/19 11:40 RPR Titer Nonreactive (NONREACTIVE) 05/27/19 11:40 lab noted ua 05/27/19 not collected reorder ua Assessment: 05/29/19 16:52 alcohol withdrawal sx alert oriented x 3 no wheezing no shortness of breathe Plan: continue librium detox regimen
[2019-05-29] MEDS: THIAMINE HCL 100 MG TABLET (FP) PO SCH (22:34)
[2019-05-30] MEDS ORDERED: chlordiazePOXIDE HCL 10 MG CAPSULE PO PRN
[2019-05-30] MEDS: GABAPENTIN 300 MG CAPSULE (FP) PO SCH ×3 (05:17→22:33)
[2019-05-30] MEDS: chlordiazePOXIDE HCL 10 MG CAPSULE PO SCH ×4 (05:18→22:33)
[2019-05-30] MEDS: GEMFIBROZIL 600 MG TABLET (FP) PO SCH ×2 (06:28→18:10)
[2019-05-30] MEDS: metFORMIN HCL 500 MG TABLET (FP) PO SCH ×2 (06:28→18:10)
[2019-05-30] MEDS: ASPIRIN 81 MG CHEWABLE TABLETS PO SCH (10:37)
[2019-05-30] MEDS: levETIRAcetam 500 MG TABLET (FP) PO SCH ×2 (10:37→22:34)
[2019-05-30] MEDS: PRENATAL VITAMINS W/ FOLIC ACID TABLET (FP) PO SCH (10:38)
[2019-05-30] MEDS: ATENOLOL 50 MG TABLET (FP) PO SCH (10:38)
[2019-05-30 15:35] LABS: EPI CELLS 5.1 /HPF (0-5/HPF); HYALINE CASTS 18 /lpf (0-8); URINE APPEARANCE CLEAR; URINE BACTERIA 2.2 /hpf (NEGATIVE); URINE BILIRUBIN NEGATIVE (NEGATIVE); URINE COLOR YELLOW; URINE GLUCOSE (UA) NEGATIVE (NEGATIVE); URINE KETONE NEGATIVE (NEGATIVE); URINE LEUK ESTERASE NEGATIVE (NEGATIVE); URINE NITRITE NEGATIVE (NEGATIVE); URINE PROTEIN TRACE (NEGATIVE); URINE RBC 1 /hpf (0-4); URINE UROBILINOGEN 0.2 mg/dL (0.2-1.0); URINE WBC 1 /hpf (0-5)
--- NOTE | 2019-05-30 16:07 | PN ---
[facility] CIWA - CIWA Score Nausea/Vomitin-No Nausea/No Vomiting Muscle Tremors: 3 Anxiety: 3 Agitation: 1-Slight > Activity Paroxysmal Sweats: No Perspiration Orientation: 2-Disoriented Date<2 days Tacttile Disturbances: 0-None Auditory Disturbances: 0-None Visual Disturbances: 2-Mild Sensitivity Headache: 0-None Present CIWA-Ar Total Score: 11 S Progress Note (SOAP) Subjective: Tremors, Fatigue, Anxious. Objective: PATIENT A & O X 2 (UNCERTAIN ABOUT CURRENT DAY / DATE). PATIENT OBSERVED AMBULATING ON UNIT UNASSISTED. IN NO ACUTE DISTRESS. 05/30/19 16:04 Vital Signs Temperature 96.8 F L 05/30/19 13:30 Pulse Rate 86 05/30/19 13:30 Respiratory Rate 18 05/30/19 13:30 Blood Pressure 148/93 05/30/19 13:30 O2 Sat by Pulse Oximetry (%) Laboratory Tests 05/27/19 05/27/19 05/27/19 11:40 11:40 11:40 WBC 4.8 RBC 3.65 L Hgb 11.0 L Hct 32.3 L MCV 88.3 MCH 30.0 MCHC 33.9 RDW 16.1 H Plt Count 271 D MPV 7.0 L Sodium 142 Potassium 3.9 Chloride 110 H Carbon Dioxide 24 Anion Gap 8 BUN 32.9 H Creatinine 1.1 Est GFR (CKD-EPI)AfAm 87.13 Est GFR (CKD-EPI)NonAf 75.17 POC Glucometer Random Glucose 150 H Calcium 8.3 L Total Bilirubin 0.2 AST 106 H ALT 74 H Alkaline Phosphatase 123 H Total Protein 7.8 Albumin 3.4 Urine Color Urine Appearance Urine pH Ur Specific [employer] Urine Protein Urine Glucose (UA) Urine Ketones Urine Blood Urine Nitrite Urine Bilirubin Urine Urobilinogen Ur Leukocyte Esterase Urine WBC (Auto) Urine RBC (Auto) Urine Casts (Auto) U Epithel Cells (Auto) Urine Bacteria (Auto) RPR Titer Nonreactive 05/27/19 05/27/19 05/28/19 12:16 16:20 05:19 WBC RBC Hgb Hct MCV MCH MCHC RDW Plt Count MPV Sodium Potassium Chloride Carbon Dioxide Anion Gap BUN Creatinine Est GFR (CKD-EPI)AfAm Est GFR (CKD-EPI)NonAf POC Glucometer 152 202 145 Random Glucose Calcium Total Bilirubin AST ALT Alkaline Phosphatase Total Protein Albumin Urine Color Urine Appearance Urine pH Ur Specific [employer] Urine Protein Urine Glucose (UA) Urine Ketones Urine Blood Urine Nitrite Urine Bilirubin Urine Urobilinogen Ur Leukocyte Esterase Urine WBC (Auto) Urine RBC (Auto) Urine Casts (Auto) U Epithel Cells (Auto) Urine Bacteria (Auto) RPR Titer 05/28/19 05/29/19 05/29/19 16:20 05:18 07:00 WBC RBC Hgb Hct MCV MCH MCHC RDW Plt Count MPV Sodium Potassium Chloride Carbon Dioxide Anion Gap BUN 10.3 Creatinine Est GFR (CKD-EPI)AfAm Est GFR (CKD-EPI)NonAf POC Glucometer 145 223 Random Glucose Calcium Total Bilirubin AST 73 H ALT Alkaline Phosphatase Total Protein Albumin Urine Color Urine Appearance Urine pH Ur Specific [employer] Urine Protein Urine Glucose (UA) Urine Ketones Urine Blood Urine Nitrite Urine Bilirubin Urine Urobilinogen Ur Leukocyte Esterase Urine WBC (Auto) Urine RBC (Auto) Urine Casts (Auto) U Epithel Cells (Auto) Urine Bacteria (Auto) RPR Titer 05/29/19 05/30/19 05/30/19 16:12 05:17 07:30 WBC RBC Hgb Hct MCV MCH MCHC RDW Plt Count MPV Sodium Potassium Chloride Carbon Dioxide Anion Gap BUN Creatinine Est GFR (CKD-EPI)AfAm Est GFR (CKD-EPI)NonAf POC Glucometer 165 162 Random Glucose Calcium Total Bilirubin AST ALT Alkaline Phosphatase Total Protein Albumin Urine Color Yellow Urine Appearance Clear Urine pH 6.0 Ur Specific [employer] 1.015 Urine Protein Trace Urine Glucose (UA) Negative Urine Ketones Negative Urine Blood 1+ H Urine Nitrite Negative Urine Bilirubin Negative Urine Urobilinogen 0.2 Ur Leukocyte Esterase Negative Urine WBC (Auto) 1 Urine RBC (Auto) 1 Urine Casts (Auto) 18 U Epithel Cells (Auto) 5.1 Urine Bacteria (Auto) 2.2 RPR Titer LABS NOTED. PATIENT HAS BEEN ANEMIC ON PREVIOUS ADMISSIONS. 05/30/19 16:06 Assessment: 05/30/19 16:05 WITHDRAWAL SYMPTOMS. ANEMIA. Plan: CONTINUE DETOX. INCREASE DAILY PO WATER INTAKE. PATIENT IS CURRENTLY RECEIVING DAILY MVI CONTAINING B VITAMINS AND IRON WHILE ADMITTED FOR DETOX.
[2019-05-30] MEDS: THIAMINE HCL 100 MG TABLET (FP) PO SCH (22:33)
[2019-05-31] MEDS: chlordiazePOXIDE HCL 10 MG CAPSULE PO SCH ×2 (05:58→17:52)
[2019-05-31] MEDS: GABAPENTIN 300 MG CAPSULE (FP) PO SCH ×3 (05:59→22:26)
[2019-05-31] MEDS: GEMFIBROZIL 600 MG TABLET (FP) PO SCH ×2 (05:59→17:52)
[2019-05-31] MEDS: metFORMIN HCL 500 MG TABLET (FP) PO SCH ×2 (05:59→17:52)
[2019-05-31] MEDS: ATENOLOL 50 MG TABLET (FP) PO SCH (11:05)
[2019-05-31] MEDS: levETIRAcetam 500 MG TABLET (FP) PO SCH ×2 (11:05→22:26)
[2019-05-31] MEDS: ASPIRIN 81 MG CHEWABLE TABLETS PO SCH (11:05)
[2019-05-31] MEDS: PRENATAL VITAMINS W/ FOLIC ACID TABLET (FP) PO SCH (11:05)
--- NOTE | 2019-05-31 14:52 | PN ---
[facility] CIWA - CIWA Score Nausea/Vomitin-No Nausea/No Vomiting Muscle Tremors: 2 Anxiety: 3 Agitation: 1-Slight > Activity Paroxysmal Sweats: No Perspiration Orientation: 0-Oriented Tacttile Disturbances: 0-None Auditory Disturbances: 0-None Visual Disturbances: 2-Mild Sensitivity Headache: 0-None Present CIWA-Ar Total Score: 8 [facility] Progress Note (SOAP) Subjective: Tremors, Fatigue, Anxious. Objective: PATIENT A & O X 3, OBSERVED AMBULATING ON UNIT UNASSISTED. IN NO ACUTE DISTRESS. 05/31/19 14:53 Vital Signs Temperature 97.4 F L 05/31/19 09:50 Pulse Rate 81 05/31/19 09:50 Respiratory Rate 18 05/31/19 09:50 Blood Pressure 161/96 05/31/19 09:50 O2 Sat by Pulse Oximetry (%) Laboratory Tests 05/27/19 05/27/19 05/27/19 11:40 11:40 11:40 WBC 4.8 RBC 3.65 L Hgb 11.0 L Hct 32.3 L MCV 88.3 MCH 30.0 MCHC 33.9 RDW 16.1 H Plt Count 271 D MPV 7.0 L Sodium 142 Potassium 3.9 Chloride 110 H Carbon Dioxide 24 Anion Gap 8 BUN 32.9 H Creatinine 1.1 Est GFR (CKD-EPI)AfAm 87.13 Est GFR (CKD-EPI)NonAf 75.17 POC Glucometer Random Glucose 150 H Calcium 8.3 L Total Bilirubin 0.2 AST 106 H ALT 74 H Alkaline Phosphatase 123 H Total Protein 7.8 Albumin 3.4 Urine Color Urine Appearance Urine pH Ur Specific [place] Urine Protein Urine Glucose (UA) Urine Ketones Urine Blood Urine Nitrite Urine Bilirubin Urine Urobilinogen Ur Leukocyte Esterase Urine WBC (Auto) Urine RBC (Auto) Urine Casts (Auto) U Epithel Cells (Auto) Urine Bacteria (Auto) RPR Titer Nonreactive 05/27/19 05/27/19 05/28/19 12:16 16:20 05:19 WBC RBC Hgb Hct MCV MCH MCHC RDW Plt Count MPV Sodium Potassium Chloride Carbon Dioxide Anion Gap BUN Creatinine Est GFR (CKD-EPI)AfAm Est GFR (CKD-EPI)NonAf POC Glucometer 152 202 145 Random Glucose Calcium Total Bilirubin AST ALT Alkaline Phosphatase Total Protein Albumin Urine Color Urine Appearance Urine pH Ur Specific [place] Urine Protein Urine Glucose (UA) Urine Ketones Urine Blood Urine Nitrite Urine Bilirubin Urine Urobilinogen Ur Leukocyte Esterase Urine WBC (Auto) Urine RBC (Auto) Urine Casts (Auto) U Epithel Cells (Auto) Urine Bacteria (Auto) RPR Titer 05/28/19 05/29/19 05/29/19 16:20 05:18 07:00 WBC RBC Hgb Hct MCV MCH MCHC RDW Plt Count MPV Sodium Potassium Chloride Carbon Dioxide Anion Gap BUN 10.3 Creatinine Est GFR (CKD-EPI)AfAm Est GFR (CKD-EPI)NonAf POC Glucometer 145 223 Random Glucose Calcium Total Bilirubin AST 73 H ALT Alkaline Phosphatase Total Protein Albumin Urine Color Urine Appearance Urine pH Ur Specific [place] Urine Protein Urine Glucose (UA) Urine Ketones Urine Blood Urine Nitrite Urine Bilirubin Urine Urobilinogen Ur Leukocyte Esterase Urine WBC (Auto) Urine RBC (Auto) Urine Casts (Auto) U Epithel Cells (Auto) Urine Bacteria (Auto) RPR Titer 05/29/19 05/30/19 05/30/19 16:12 05:17 07:30 WBC RBC Hgb Hct MCV MCH MCHC RDW Plt Count MPV Sodium Potassium Chloride Carbon Dioxide Anion Gap BUN Creatinine Est GFR (CKD-EPI)AfAm Est GFR (CKD-EPI)NonAf POC Glucometer 165 162 Random Glucose Calcium Total Bilirubin AST ALT Alkaline Phosphatase Total Protein Albumin Urine Color Yellow Urine Appearance Clear Urine pH 6.0 Ur Specific [place] 1.015 Urine Protein Trace Urine Glucose (UA) Negative Urine Ketones Negative Urine Blood 1+ H Urine Nitrite Negative Urine Bilirubin Negative Urine Urobilinogen 0.2 Ur Leukocyte Esterase Negative Urine WBC (Auto) 1 Urine RBC (Auto) 1 Urine Casts (Auto) 18 U Epithel Cells (Auto) 5.1 Urine Bacteria (Auto) 2.2 RPR Titer 05/30/19 05/31/19 05/31/19 16:32 05:57 05:57 WBC RBC Hgb Hct MCV MCH MCHC RDW Plt Count MPV Sodium Potassium Chloride Carbon Dioxide Anion Gap BUN Creatinine Est GFR (CKD-EPI)AfAm Est GFR (CKD-EPI)NonAf POC Glucometer 158 139 150 Random Glucose Calcium Total Bilirubin AST ALT Alkaline Phosphatase Total Protein Albumin Urine Color Urine Appearance Urine pH Ur Specific [place] Urine Protein Urine Glucose (UA) Urine Ketones Urine Blood Urine Nitrite Urine Bilirubin Urine Urobilinogen Ur Leukocyte Esterase Urine WBC (Auto) Urine RBC (Auto) Urine Casts (Auto) U Epithel Cells (Auto) Urine Bacteria (Auto) RPR Titer LABS NOTED. PATIENT HAS HAD ELEVATED LIVER ENZYME VALUES ON PREVIOUS ADMISSIONS. 05/31/19 14:53 Assessment: 05/31/19 14:53 WITHDRAWAL SYMPTOMS. ANEMIA. ELEVATED LIVER ENZYMES. Plan: CONTINUE DETOX. PATIENT SCHEDULED FOR D/C FROM DETOX UNIT TOMORROW.
[2019-05-31] MEDS: THIAMINE HCL 100 MG TABLET (FP) PO SCH (22:26)
[2019-06-01] MEDS ORDERED: chlordiazePOXIDE HCL 10 MG CAPSULE PO ONE (05:00)
[2019-06-01] MEDS: GABAPENTIN 300 MG CAPSULE (FP) PO SCH (05:38)
[2019-06-01] MEDS: metFORMIN HCL 500 MG TABLET (FP) PO SCH (07:18)
[2019-06-01] MEDS: GEMFIBROZIL 600 MG TABLET (FP) PO SCH (07:18)
[2019-06-01 09:35] VITALS: BP 149/99; PULSE 93; TEMP 97.9
[2019-06-01] MEDS: ATENOLOL 50 MG TABLET (FP) PO SCH (10:39)
[2019-06-01] MEDS: levETIRAcetam 500 MG TABLET (FP) PO SCH (10:39)
[2019-06-01] MEDS: ASPIRIN 81 MG CHEWABLE TABLETS PO SCH (10:39)
[2019-06-01] MEDS: PRENATAL VITAMINS W/ FOLIC ACID TABLET (FP) PO SCH (10:39)
--- NOTE | 2019-06-01 12:25 | DS ---
[facility] Detox Discharge Summary Admission Date: 05/27/19 Discharge Date: 06/01/19 - History Present History: Alcohol Dependence Additional Comments: 54 years old male admitted on 05/27/19 for acute alcohol withdrawal sx management doing well with libirum detox regimen no complication through out the detox stay , alert oriented x 3 speech clearly cardiac S1S2 regular pulmonary: clear lung bilaterally abdomen: soft none tenderness Pertinent Past History: anemia diabetes II hyper lipidemia - Physical Exam Results Vital Signs: Vital Signs Temperature 97.9 F 06/01/19 09:35 Pulse Rate 93 H 06/01/19 09:35 Respiratory Rate 19 06/01/19 09:35 Blood Pressure 149/99 06/01/19 09:35 O2 Sat by Pulse Oximetry (%) Pertinent Admission Physical Exam Findings: alcohol withdrawal sx Laboratory Last Values WBC 4.8 K/mm3 (4.0-10.0) 05/27/19 11:40 RBC 3.65 M/mm3 (4.00-5.60) L 05/27/19 11:40 Hgb 11.0 GM/dL (11.7-16.9) L 05/27/19 11:40 Hct 32.3 % (35.4-49) L 05/27/19 11:40 MCV 88.3 fl (80-96) 05/27/19 11:40 MCH 30.0 pg (25.7-33.7) 05/27/19 11:40 MCHC 33.9 g/dl (32.0-35.9) 05/27/19 11:40 RDW 16.1 % (11.9-15.9) H 05/27/19 11:40 Plt Count 271 K/MM3 (134-434) D 05/27/19 11:40 MPV 7.0 fl (7.5-11.1) L 05/27/19 11:40 Sodium 142 mmol/L (136-145) 05/27/19 11:40 Potassium 3.9 mmol/L (3.5-5.1) 05/27/19 11:40 Chloride 110 mmol/L (98-107) H 05/27/19 11:40 Carbon Dioxide 24 mmol/L (21-32) 05/27/19 11:40 Anion Gap 8 MMOL/L (8-16) 05/27/19 11:40 BUN 10.3 mg/dL (7-18) 05/29/19 07:00 Creatinine 1.1 mg/dL (0.55-1.3) 05/27/19 11:40 Est GFR (CKD-EPI)AfAm 87.13 05/27/19 11:40 Est GFR (CKD-EPI)NonAf 75.17 05/27/19 11:40 POC Glucometer 184 UNITS (80-120) 06/01/19 05:37 Random Glucose 150 mg/dL (74-106) H 05/27/19 11:40 Calcium 8.3 mg/dL (8.5-10.1) L 05/27/19 11:40 Total Bilirubin 0.2 mg/dL (0.2-1) 05/27/19 11:40 AST 73 U/L (15-37) H 05/29/19 07:00 ALT 74 U/L (13-61) H 05/27/19 11:40 Alkaline Phosphatase 123 U/L (45-117) H 05/27/19 11:40 Total Protein 7.8 g/dl (6.4-8.2) 05/27/19 11:40 Albumin 3.4 g/dl (3.4-5.0) 05/27/19 11:40 Urine Color Yellow 05/30/19 07:30 Urine Appearance Clear 05/30/19 07:30 Urine pH 6.0 (5.0-8.0) 05/30/19 07:30 Ur Specific [place] 1.015 (1.010-1.035) 05/30/19 07:30 Urine Protein Trace (NEGATIVE) 05/30/19 07:30 Urine Glucose (UA) Negative (NEGATIVE) 05/30/19 07:30 Urine Ketones Negative (NEGATIVE) 05/30/19 07:30 Urine Blood 1+ (NEGATIVE) H 05/30/19 07:30 Urine Nitrite Negative (NEGATIVE) 05/30/19 07:30 Urine Bilirubin Negative (NEGATIVE) 05/30/19 07:30 Urine Urobilinogen 0.2 mg/dL (0.2-1.0) 05/30/19 07:30 Ur Leukocyte Esterase Negative (NEGATIVE) 05/30/19 07:30 Urine WBC (Auto) 1 /hpf (0-5) 05/30/19 07:30 Urine RBC (Auto) 1 /hpf (0-4) 05/30/19 07:30 Urine Casts (Auto) 18 /lpf (0-8) 05/30/19 07:30 U Epithel Cells (Auto) 5.1 /HPF (0-5/HPF) 05/30/19 07:30 Urine Bacteria (Auto) 2.2 /hpf (NEGATIVE) 05/30/19 07:30 RPR Titer Nonreactive (NONREACTIVE) 05/27/19 11:40 lab noted - Treatment Hospital Course: Detox Protocol Followed, Detoxed Safely, Responded well, Discharged Condition Good, Rehab Referral Accepted Patient has Accepted a Rehab Referral to: [facility] - Medication Discharge Medications: Ambulatory Orders Aspirin [ASA -] 81 mg PO DAILY #30 tab.chew 03/14/19 Gabapentin [Neurontin] 600 mg PO TID #90 tablet 04/21/19 levETIRAcetam [Keppra -] 500 mg PO BID #60 tablet 04/21/19 metFORMIN HCL [Glucophage -] 1,000 mg PO BID@0700,1630 #60 tablet 04/21/19 Atenolol [Tenormin -] 100 mg PO DAILY 05/27/19 Gemfibrozil 600 mg PO ONCE 05/27/19 Lisinopril [Prinivil -] 40 mg PO DAILY 05/27/19 - Diagnosis (1) Anemia Status: Chronic Qualifiers: Anemia type: iron deficiency Iron deficiency anemia type: unspecified iron deficiency Qualified Code(s): D50.9 - Iron deficiency anemia, unspecified (2) Diabetes mellitus treated with oral medication Status: Chronic (3) Obesity (BMI 30-39.9) Status: Chronic (4) Seizure disorder Status: Chronic (5) Hypertension Status: Chronic Qualifiers: Hypertension type: essential hypertension Qualified Code(s): I10 - Essential (primary) hypertension (6) PPD positive, treated Status: Resolved (7) Substance induced mood disorder Status: Suspected - AMA Did Patient Leave Against Medical Advice: No
== END 2019-06-01 09:00 | disposition home or self-care (01) | DRG 775 ==
LOC: YASAS 10:24 → Y3N 11:54
PROVIDERS: ADMIT Surgery; ATTEND Surgery
PROC: HZ2ZZZZ Detoxification Services for Substance Abuse Treatment (ICD-10-PCS; principal; 2019-05-27)
DX: F10.230 Alcohol dependence with withdrawal, uncomplicated (principal); F19.24 Other psychoactive substance dependence with psychoactive substance-induced mood disorder; I10 Essential (primary) hypertension; I25.10 Atherosclerotic heart disease of native coronary artery without angina pectoris; I25.2 Old myocardial infarction; E11.9 Type 2 diabetes mellitus without complications; E78.5 Hyperlipidemia, unspecified; D50.9 Iron deficiency anemia, unspecified; G40.909 Epilepsy, unspecified, not intractable, without status epilepticus; R00.0 Tachycardia, unspecified; R76.11 Nonspecific reaction to tuberculin skin test without active tuberculosis; R94.5 Abnormal results of liver function studies; E66.9 Obesity, unspecified; Z68.33 Body mass index [BMI] 33.0-33.9, adult; Z79.84 Long term (current) use of oral hypoglycemic drugs; Z90.5 Acquired absence of kidney
CPT/HCPCS: 36415; 80053; 81003; 82962; 84450; 84520; 85027; 86593; J0735

== ENCOUNTER 2019-07-13 15:05 | Emergency (ER) | payer OTHER ==
[2019-07-13 15:14] VITALS: BMI 30.7
--- NOTE | 2019-07-13 15:18 | PDOC ---
History of Present Illness - General Chief Complaint: Alcohol intoxication Stated Complaint: INTOX - History of Present Illness Initial Comments: The pt is a 54M w/ a history of HTN, DM, EtOH abuse, hx of withdrawal seizures/ DTs who presents from [facility] for evaluation of alcohol intoxication, HTN to 152/103 and tachycardia to 135. Upon arrival the pt is intoxicated and history is limited. However, pt denies any current complaints, is unable to quantify how much he had to drink today, and states he wants detox. He denies pain and reports being compliant with his DM medications. 07/13/19 15:53 Past History - Past Medical History Allergies/Adverse Reactions: Allergies Allergy/AdvReac Type Severity Reaction Status Date / Time RASHAD Inhibitors Allergy Severe Swelling Verified 07/13/19 13:28 lisinopril Allergy Severe Swelling Verified 07/13/19 13:28 Home Medications: Ambulatory Orders Aspirin [ASA -] 81 mg PO DAILY #30 tab.chew 03/14/19 levETIRAcetam [Keppra -] 500 mg PO BID #60 tablet 04/21/19 metFORMIN HCL [Glucophage -] 1,000 mg PO BID@0700,1630 #60 tablet 04/21/19 Atenolol [Tenormin -] 100 mg PO DAILY 05/27/19 Gemfibrozil 600 mg PO BID 05/27/19 Lisinopril [Prinivil -] 40 mg PO DAILY 05/27/19 Folic Acid 1 tab PO DAILY 07/13/19 Gabapentin [Neurontin] 300 mg PO TID 07/13/19 Anemia: No Asthma: No Cancer: No Cardiac Disorders: Yes (heart attack 6 year ago, HTN, HLD) CVA: No COPD: No CHF: No Dementia: No Diabetes: Yes (on metformin) GI Disorders: No Disorders: No HTN: Yes Hypercholesterolemia: Yes (Gemfibra) Kidney Stones: Yes Liver Disease: No Psychiatric Problems: Yes (etoh/) Seizures: Yes (april 2019 while detoxing from alcohol) Thyroid Disease: No - Surgical History Abdominal Surgery: No Appendectomy: No Cardiac Surgery: No Cholecystectomy: No Lung Surgery: No Neurologic Surgery: No Orthopedic Surgery: No - Reproductive History Testicular Surgery: No - Immunization History Immunization Up to Date: No - Psycho Social/Smoking Cessation Hx Smoking History: Never smoked Have you smoked in the past 12 months: No Number of Cigarettes Smoked Daily: 1 If you are a former smoker, when did you quit?: at age 19 Cigars Per Day: 1 'Breaking Loose' booklet given: 01/31/19 Hx Alcohol Use: Yes (daily) Drug/Substance Use Hx: (denies) Substance Use Type: Alcohol Hx Substance Use Treatment: No Review of Systems - Review of Systems Able to Perform ROS?: Yes Comments:: GENERAL/CONSTITUTIONAL: No fever or chills HEAD, EYES, EARS, NOSE AND THROAT: No change in vision. No change in hearing CARDIOVASCULAR: No chest pain or shortness of breath RESPIRATORY: Denies cough GASTROINTESTINAL: No nausea, vomiting GENITOURINARY: No dysuria MUSCULOSKELETAL: No joint or muscle swelling or pain. No neck or back pain SKIN: No rash NEUROLOGIC: No headache or numbness/tingling 07/13/19 15:17 Is the patient limited Cuban proficient: No *Physical Exam - Vital Signs Last Vital Signs Temp Pulse Resp BP Pulse Ox 98.4 F 98 H 17 138/89 98 07/13/19 15:10 07/13/19 15:10 07/13/19 15:10 07/13/19 15:10 07/13/19 15:10 - Physical Exam Comments: GENERAL: Intoxicated, easily arousable, and oriented to person HEAD: No signs of trauma, normocephalic, atraumatic EYES: PERRLA, EOMI, sclera anicteric, conjunctiva clear ENT: Hearing grossly normal, nares patent, oropharynx clear without exudates. Moist mucosa LUNGS: No distress, speaks in full sentences, clear to auscultation bilaterally HEART: Regular rate and rhythm, normal S1 and S2, no murmurs appreciated, peripheral pulses normal and equal bilaterally ABDOMEN: Soft, nontender, normoactive bowel sounds. No guarding, no rebound EXTREMITIES: Normal inspection, Normal range of motion, no edema. No clubbing or cyanosis NEUROLOGICAL: Cranial nerves II through XII grossly intact. Slurred speech no focal sensorimotor deficits SKIN: Warm, Dry 07/13/19 15:18 ED Treatment Course - LABORATORY CBC & Chemistry Diagram: 07/13/19 15:45 07/13/19 15:45 Medical Decision Making - Medical Decision Making The pt is a 54M w/ a history of EtOH abuse w/ history of withdrawal seizure and DT who presents intoxicated for medical evaluation ED Course CMP, CBC, UA, UDS IVF Banana bag Ativan 1m IV once given for agitation 07/13/19 16:13 LFT elevation and anemia likely 2/2 EtOH abuse Lytes unremarkable No YAJAIRA UDS notable for benzos Pt continues to have slurred speech and unstable gait Receiving fluids and resting Will reassess 07/13/19 17:17 Pt speaking with clear speech Pt continues to have unsteady gait Pt requesting EtOH detox [facility] contacted, per staff, provider will call back 07/13/19 21:13 Discussed case w/ [facility] provider who stated a repeat EtOH and BGM was required for transfer despite pt having improved BP, HR, clearer speech and ambulating in ED. EtOH and BGM sent 07/13/19 22:12 Repeat EtOH 297 from 420 BGM 120 Pt accepted to , will transfer for detox 07/13/19 22:17 Discharge - Discharge Information Problems reviewed: Yes Clinical Impression/Diagnosis: Alcohol intoxication Qualifiers: Complication of substance-induced condition: uncomplicated Qualified Code(s): F10.920 - Alcohol use, unspecified with intoxication, uncomplicated Condition: Improved Disposition: HOME - Admission No - Follow up/Referral - Patient Discharge Instructions Patient Printed Discharge Instructions: DI for Alcohol Abuse Additional Instructions: You were seen in the Emergency Department for evaluation of alcohol intoxication. Review the handout provided at discharge. Per your request, your are being transferred to [facility] for detox. You were treated with Librium prior to departure for withdrawal prophylaxis. - Post Discharge Activity
[2019-07-13] MEDS ORDERED: SODIUM CHLORIDE 0.9% 500 ML INFUS.BAG IV ONE (15:22)
--- NOTE | 2019-07-13 15:45 | PDOC ---
Attending Attestation - Resident Resident Name: Riccardo Lei - ED Attending Attestation I have performed the following: I have examined & evaluated the patient, The case was reviewed & discussed with the resident, I agree w/resident's findings & plan, Exceptions are as noted - HPI HPI: 07/13/19 16:09 54yo male who is undomiciled and lives in a long term in [place] who presents for eval of alcohol intox from [facility]. Pt sent from [facility] for elevated bp and hr. Pt with elevated brac at [facility] to 400. Pt states drinking all day yesterday and today. Denies drug use. Pt speaking in clear sentences and moving all extremities. Pt denies falls. Denies si/hi. Denies all other complaints. - Physicial Exam PE: 07/13/19 16:13 Gen: sleeping, easily arousable, nad, intoxicated, smell of etoh on breath heart: +s1s2 reg lungs: cta b/l abd: soft, nt/nd +bs, obese ext: no c/c/e neuro: no focal deficits, speaking in clear sentences - Medical Decision Making 07/13/19 16:14 a/p: 54yo male from [facility] for clearance for detox -pt arrives with vss -pt intoxicated -will send labs, ivf hydration 07/13/19 16:15 pt now states he does not want to stay or go to detox, states he wants to call a medicaid cab and go to his long term in pt willing to wait for labs and medicaid cab 07/13/19 16:20 pt started to become angry - tried to get up and almost fell from etoh and intoxication given 1mg ativan will continue to monitor 07/13/19 16:39 elevated lft from etoh low wbc from etoh 07/13/19 16:39 +benzos in ua
[2019-07-13] MEDS ORDERED: FOLIC ACID INJECTION - 1 MG, THIAMINE HCL 100 MG, MULTIVIT INJECTION ADULT 10 ML in SOD... IVPB ONE (15:50)
[2019-07-13 15:55] LABS: PH,URINE 5.5 (5.0-8.0); URINE APPEARANCE CLEAR; URINE BILIRUBIN NEGATIVE (NEGATIVE); URINE COLOR YELLOW; URINE GLUCOSE (UA) NEGATIVE (NEGATIVE); URINE KETONE NEGATIVE (NEGATIVE); URINE LEUK ESTERASE NEGATIVE (NEGATIVE); URINE NITRITE NEGATIVE (NEGATIVE); URINE PROTEIN TRACE (NEGATIVE); URINE UROBILINOGEN 0.2 mg/dL (0.2-1.0)
[2019-07-13 15:58] LABS: BASO % 0.4 % (0-2.0); EOS % 0.4 % (0-4.5); HEMOGLOBIN 11.5 GM/dL (11.7-16.9); LYMPH % 45.1 % (8-40); MCH 30.3 pg (25.7-33.7); MCHC 33.9 g/dl (32.0-35.9); MEAN CELL VOLUME 89.4 fl (80-96); MEAN PLT VOLUME 7.2 fl (7.5-11.1); MONO % 17.9 % (3.8-10.2); NEUT % 36.2 % (42.8-82.8); PLATELET COUNT 184 K/MM3 (134-434); RDW 16.3 % (11.9-15.9); WHITE BLOOD COUNT 3.3 K/mm3 (4.0-10.0)
[2019-07-13] MEDS ORDERED: LORazepam 2 MG/ML SDV VIAL ONE (16:07)
[2019-07-13 16:20] LABS: COCAINE, UR NEGATIVE ng/ml (CUTOFF=300); METHADONE, UR NEGATIVE ng/ml (CUTOFF=300); OPIATES, URI NEGATIVE ng/ml (CUTOFF=300); PHENCYCLIDINE,URINE NEGATIVE ng/ml (CUTOFF=25); URINE AMPHETAMINES NEGATIVE ng/ml (CUTOFF=500); URINE BARBITURATES NEGATIVE ng/ml (CUTOFF=200)
[2019-07-13 16:25] LABS: URINE BENZODIAZEPINES POSITIVE ng/ml (CUTOFF=200)
[2019-07-13 16:29] LABS: ALBUMIN 3.4 g/dl (3.4-5.0); BILIRUBIN,TOTAL 0.4 mg/dL (0.2-1); BLOOD UREA NITROGEN 26.6 mg/dL (7-18); CALCIUM 7.9 mg/dL (8.5-10.1); CREATININE 1.1 mg/dL (0.55-1.3); POTASSIUM 4.1 mmol/L (3.5-5.1)
[2019-07-13 18:16] LABS: MAGNESIUM 2.1 mg/dL (1.8-2.4)
[2019-07-13 19:25] VITALS: BP 107/62; PULSE 89; TEMP 97.9
[2019-07-13] MEDS ORDERED: chlordiazePOXIDE HCL 25 MG CAPSULE PO ONE (22:16)
[2019-07-13] MEDS ORDERED: chlordiazePOXIDE HCL 25 MG CAPSULE ONE (22:19)
== END 2019-07-13 23:44 | disposition home or self-care (01) ==
LOC: JER 15:05
PROC: 3E033GC Introduction of Other Therapeutic Substance into Peripheral Vein, Percutaneous Approach (ICD-10-PCS; principal; 2019-07-13)
PROC: 3E033NZ Introduction of Analgesics, Hypnotics, Sedatives into Peripheral Vein, Percutaneous Approach (ICD-10-PCS; 2019-07-13)
DX: F10.220 Alcohol dependence with intoxication, uncomplicated (principal); Y90.8 Blood alcohol level of 240 mg/100 ml or more; I25.10 Atherosclerotic heart disease of native coronary artery without angina pectoris; I10 Essential (primary) hypertension; I25.2 Old myocardial infarction; E11.9 Type 2 diabetes mellitus without complications; Z79.84 Long term (current) use of oral hypoglycemic drugs; E78.00 Pure hypercholesterolemia, unspecified; G40.509 Epileptic seizures related to external causes, not intractable, without status epilepticus; Z88.8 Allergy status to other drugs, medicaments and biological substances; Z59.0 Homelessness
CPT/HCPCS: 36415; 80053; 80307; 81003; 82962; 83735; 85025; 96365; 96366; 96367; 99283-25; J7030

== ENCOUNTER 2019-07-13 23:55 | Inpatient (IN) | payer OTHER ==
--- NOTE | 2019-07-13 14:02 | HP ---
Screened but not Admitted - Documentation of Visit Screened but not Admitted: Yes Level of Care Recommended at this Time: ER Evaluation/Care Additional Information/Explanation: patient present in [facility] in alter mental status,unable to give information. isela is 0.420,bp 152/103,p135,r20,t98.5, unstable gait. bgm is 148. patient to be transfer to [facility] er for evaluation, stabilization,. to be transported by [facility]. spoke with Dr.Miriam Headley
--- NOTE | 2019-07-14 01:31 | HP ---
CIWA Score Nausea/Vomitin Muscle Tremors: 3 Anxiety: 3 Agitation: 3 Paroxysmal Sweats: 3 Orientation: 1-Uncertain about Date Tacttile Disturbances: 0-None Auditory Disturbances: 0-None Visual Disturbances: 0-None Headache: 2-Mild CIWA-Ar Total Score: 18 - Admission Criteria OASAS Guidelines: Admission for Medically Managed Detox: Requires at least one of the followin. CIWA greater than 12 2. Seizures within the past 24 hours 3. Delirium tremens within the past 24 hours 4. Hallucinations within the past 24 hours 5. Acute intervention needed for co occurring medical disorder 6. Acute intervention needed for co occurring psychiatric disorder 7. Severe withdrawal that cannot be handled at a lower level of care (continued vomiting, continued diarrhea, abnormal vital signs) requiring intravenous medication and/or fluids 8. Admission ROS [facility] Chief Complaint: Alcohol withdrawal symptoms Allergies/Adverse Reactions: Allergies Allergy/AdvReac Type Severity Reaction Status Date / Time RASHAD Inhibitors Allergy Severe Swelling Verified 07/14/19 00:03 lisinopril Allergy Severe Swelling Verified 07/14/19 00:03 History of Present Illness: Received 54 years old male with a long history of alcohol dependence seeking admission to detox from [facility]. Patient was transferred to ER earlier today from [facility] because his AUTUMN was .406 and his blood pressure was B/P 152/103 and HR 135n respectively. He has a history of withdrawal seizures, hypertension , hyperlipidemia, heart attack, and DM Type 2. Patient has slurred speech, unsteady gait and appears intoxicated but is able to answer questions. He denies suicidal ideation at this time Exam Limitations: Intoxication - Ebola screening Have you traveled outside of the country in the last 21 days: No (N) Have you had contact with anyone from an Ebola affected area: No Do you have a fever: No - Review of Systems Constitutional: Night Sweats, Changes in sleep, Unintentional Wgt. Loss EENT: reports: No Symptoms Reported Respiratory: reports: No Symptoms reported Cardiac: reports: No Symptoms Reported GI: reports: Poor Appetite, Poor Fluid Intake, Abdominal cramping : reports: No Symptoms Reported Musculoskeletal: reports: Back Pain Integumentary: reports: Dryness, Flushing Neuro: reports: Headache, Tremors Endocrine: reports: No Symptoms Reported Hematology: reports: No Symptoms Reported Psychiatric: reports: Anxious Other Systems: Reviewed and Negative Patient History - Patient Medical History Hx Anemia: No Hx Asthma: No Hx Chronic Obstructive Pulmonary Disease (COPD): No Hx Cancer: No Hx Cardiac Disorders: Yes (heart attack 6 year ago, HTN, HLD) Hx Congestive Heart Failure: No Hx Hypertension: Yes Hx Hypercholesterolemia: Yes (Gemfibra) Hx Pacemaker: No HX Cerebrovascular Accident: No Hx Seizures: Yes (april 2019 while detoxing from alcohol) Hx Dementia: No Hx Diabetes: Yes (on metformin) Hx Gastrointestinal Disorders: No Hx Liver Disease: No Hx Genitourinary Disorders: No Hx Sexually Transmitted Disorders: No Hx Renal Disease (ESRD): No Hx Thyroid Disease: No Hx Human Immunodeficiency Virus (HIV): No (Negative 2018 in 09/01) Hx Hepatitis C: No Hx Depression: No Hx Suicide Attempt: No Hx Bipolar Disorder: No Hx Schizophrenia: No - Patient Surgical History Past Surgical History: Yes Hx Neurologic Surgery: No Hx Cataract Extraction: No Hx Cardiac Surgery: No Hx Lung Surgery: No Hx Breast Surgery: No Hx Breast Biopsy: No Hx Abdominal Surgery: No Hx Appendectomy: No Hx Cholecystectomy: No Hx Genitourinary Surgery: Yes (left kidney stone removed in 2015) Hx Section: No Hx Orthopedic Surgery: No Other Surgical History: left nephrectomy 2016 Anesthesia Reaction: No - PPD History Previous Implant?: Yes Documented Results: Positive w/proof Implanted On Prior [facility] Admission?: No Results: cxray(-)04/29/18 PPD to be Administered?: No - Reproductive History Patient is a Female of Child Bearing Age (11 -55 yrs old): No (male) - Smoking Cessation Smoking history: Former smoker Have you smoked in the past 12 months: No Aproximately how many cigarettes per day: 1 If you are a former smoker, when did you quit?: at age 19 Cigars Per Day: 1 Hx Chewing Tobacco Use: No Initiated information on smoking cessation: No - Substance & Tx. History Hx Alcohol Use: Yes Hx Substance Use: No Substance Use Type: Alcohol Hx Substance Use Treatment: Yes ([facility]) - Substances abused Alcohol Substance route: Oral Frequency: Daily Amount used: 1 PINT VODKA + 2PACK BEER Age of first use: 18 Date of last use: 07/13/19 Admission Physical Exam BHS - Vital Signs Vital Signs: Vital Signs - 24 hr 07/13/19 07/14/19 07/14/19 13:16 00:04 01:20 Temperature 98.5 F 98.1 F 98.1 F Pulse Rate 135 H 102 H 102 H Respiratory 20 20 20 Rate Blood Pressure 152/103 H 150/95 150/95 - Physical General Appearance: Yes: Moderate Distress, Tremorous, Sweating, Anxious HEENTM: Yes: Within Normal Limits Respiratory: Yes: Within Normal Limits Breast: Yes: Breast Exam Deferred Cardiology: Yes: Tachycardia Abdominal: Yes: Normal Bowel Sounds, Soft Genitourinary: Yes: Within Normal Limits Back: Yes: Normal Inspection Extremities: Yes: Tremors Neurological: Yes: Within Normal Limits Integumentary: Yes: Warm Lymphatic: Yes: Within Normal Limits - Diagnostic (1) Alcohol dependence with uncomplicated withdrawal Current Visit: Yes Status: Chronic (2) Anemia Current Visit: Yes Status: Chronic Qualifiers: Anemia type: iron deficiency Iron deficiency anemia type: unspecified iron deficiency Qualified Code(s): D50.9 - Iron deficiency anemia, unspecified (3) DM2 (diabetes mellitus, type 2) Current Visit: Yes Status: Chronic Qualifiers: 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: without 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 use Diabetes mellitus complication status: without complication Qualified Code(s): E11.9 - Type 2 diabetes mellitus without complications (4) Hyperlipemia Current Visit: Yes Status: Chronic Qualifiers: Hyperlipidemia type: pure hypercholesterolemia Qualified Code(s): E78.00 - Pure hypercholesterolemia, unspecified; E78.0 - Pure hypercholesterolemia (5) Hypertension Current Visit: Yes Status: Chronic Qualifiers: Hypertension type: essential hypertension Qualified Code(s): I10 - Essential (primary) hypertension (6) Seizure disorder Current Visit: No Status: Chronic (7) PPD positive, treated Current Visit: Yes Status: Resolved Comment: cxr 02/2017 normal Cleared for Admission S - Detox or Rehab [facility] Level of Care: Medically Managed Detox Regimen/Protocol: Librium Breathalyzer - Breathalyzer Breathalyzer: 0.190 Urine Drug Screen - Test Device Lot number: [id number] Expiration date: 03/13/21 - Control Is test valid?: Yes - Results Drug screen NEGATIVE: No Urine drug screen results: BZO-Benzodiazepines Inpatient Rehab Admission - Rehab Decision to Admit Inpatient rehab admission?: No
[2019-07-14] MEDS ORDERED: BISMUTH SUBSALICYLATE 524 MG/30 ML UD PO PRN (01:53)
[2019-07-14] MEDS ORDERED: ACETAMINOPHEN 325 MG TABLET (FP) PO PRN ×2 (01:53)
[2019-07-14] MEDS ORDERED: MAG HYDROX/AL HYDROX/SIMETH 30 ML UNIT-DOSE CUP PO PRN (01:53)
[2019-07-14] MEDS ORDERED: IBUPROFEN 400 MG TABLET (FP) PO PRN (01:53)
[2019-07-14] MEDS ORDERED: MAGNESIUM CITRATE 300 ML BOTTLE PO PRN (01:53)
[2019-07-14] MEDS ORDERED: MELATONIN 5 MG TABLETS PO PRN (01:53)
[2019-07-14] MEDS ORDERED: METHOCARBAMOL 500 MG TABLET PO PRN (01:53)
[2019-07-14] MEDS ORDERED: hydrOXYzine PAMOATE 25 MG CAPSULE (FP) PO PRN (01:53)
[2019-07-14] MEDS ORDERED: MENTHOL/PHENOL 1 EACH UD MM PRN (01:53)
[2019-07-14] MEDS ORDERED: chlordiazePOXIDE HCL 25 MG CAPSULE PO PRN (01:53)
[2019-07-14] MEDS ORDERED: MAGNESIUM HYDROX 2400MG/30ML ORAL SUSPENSION 30 ML CUP PO PRN (01:53)
[2019-07-14 03:05] VITALS: TEMP 97.9
[2019-07-14] MEDS ORDERED: chlordiazePOXIDE HCL 25 MG CAPSULE PO SCH (05:00)
[2019-07-14] MEDS ORDERED: metFORMIN HCL 500 MG TABLET (FP) PO SCH (07:00)
[2019-07-14 07:44] VITALS: PULSE 118
--- NOTE | 2019-07-14 07:57 | PN ---
[facility] Progress Note Note: Patient fell in front of room 677 and had a seizure. As per nurse, Ms. Jane Dangelo, she heard a loud "thud" sound and found patient in tonic clonic seizure that lasted about 15 seconds. patient had bitten his tongue and was bleeding from the mouth. Vital Signs - 24 hr 07/14/19 07/14/19 07/14/19 00:04 01:20 03:04 Temperature 98.1 F 98.1 F 97.9 F Pulse Rate 102 H 102 H 97 H Respiratory 20 20 20 Rate Blood Pressure 150/95 150/95 147/87 07/14/19 07/14/19 07/14/19 03:56 07:43 07:50 Temperature Pulse Rate 97 H 118 H 118 H Respiratory 20 20 20 Rate Blood Pressure 181/71 H 161/71 PHYSICAL ASSESMEMT General: Patient is agitated. S/P tonic clonic seizure. Lying on the side . Aspiration precaution maintained Head: No signs of trauma, normocephalic, atraumatic Eyes: PERRLA, EOMI, sclera is white, conjunctiva clear ENT: Auricles normal inspection, hearing normal, nares patent, unable to assess oropharynx. Patient not cooperating .Bleeding tongue due a bite during seizure. Unable to evaluate as patient refused to open his mouth Neck: Supple, no lymphadenopathy, JVD, or masses Lungs: No distress, clear to auscultation bilaterally Heart: Regular rate and rhythm, normal S1 and S2, no murmurs, rubs or gallops, peripheral pulses normal and equal bilaterally. Abdomen: Soft, non-tender, bowel sounds normal. No guarding, no rebound. No palpable masses Extremities: Normal inspection, Normal range of motion, no edema. No clubbing or cyanosis. Neurological: +Unable to assess further. Skins: Warm, Dry, normal turgor, no rashes Home Medications: Ambulatory Orders Aspirin [ASA -] 81 mg PO DAILY #30 tab.chew 03/14/19 levETIRAcetam [Keppra -] 500 mg PO BID #60 tablet 04/21/19 metFORMIN HCL [Glucophage -] 1,000 mg PO BID@0700,1630 #60 tablet 04/21/19 Atenolol [Tenormin -] 100 mg PO DAILY 05/27/19 Gemfibrozil 600 mg PO BID 05/27/19 Lisinopril [Prinivil -] 40 mg PO DAILY 05/27/19 Folic Acid 1 tab PO DAILY 07/13/19 Gabapentin [Neurontin] 300 mg PO TID 07/13/19 Action: Transfer to ER for further evaluation Endorsed to Brionna Saini NP
[2019-07-14 08:16] VITALS: BP 161/71
--- NOTE | 2019-07-14 09:57 | DS ---
[facility] Detox Discharge Summary Admission Date: 07/14/19 Discharge Date: 07/14/19 - History Present History: Alcohol Dependence - Physical Exam Results Vital Signs: Vital Signs Temperature 97.9 F 07/14/19 03:04 Pulse Rate 118 H 07/14/19 07:50 Respiratory Rate 20 07/14/19 07:50 Blood Pressure 161/71 07/14/19 07:50 O2 Sat by Pulse Oximetry (%) Pertinent Admission Physical Exam Findings: pt arrived in withdrawals Laboratory Tests 07/13/19 07/14/19 07/14/19 13:57 07:16 08:22 POC Glucometer 148 170 183 pt was admitted to [facility] [place] [facility] after being sent there for a seizure episode pt experienced in detox. - Treatment Patient has Accepted a Rehab Referral to: sent to ED at [facility] - Medication Discharge Medications: Ambulatory Orders Aspirin [ASA -] 81 mg PO DAILY #30 tab.chew 03/14/19 levETIRAcetam [Keppra -] 500 mg PO BID #60 tablet 04/21/19 metFORMIN HCL [Glucophage -] 1,000 mg PO BID@0700,1630 #60 tablet 04/21/19 Atenolol [Tenormin -] 100 mg PO DAILY 05/27/19 Gemfibrozil 600 mg PO BID 05/27/19 Lisinopril [Prinivil -] 40 mg PO DAILY 05/27/19 Folic Acid 1 tab PO DAILY 07/13/19 Gabapentin [Neurontin] 300 mg PO TID 07/13/19 - Diagnosis (1) Alcohol dependence with uncomplicated withdrawal Current Visit: Yes Status: Chronic (2) Anemia Current Visit: Yes Status: Chronic Qualifiers: Anemia type: iron deficiency Iron deficiency anemia type: unspecified iron deficiency Qualified Code(s): D50.9 - Iron deficiency anemia, unspecified (3) DM2 (diabetes mellitus, type 2) Current Visit: Yes Status: Chronic Qualifiers: Diabetes mellitus director validation insulin use: without jail use Diabetes mellitus complication status: without complication Qualified Code(s): E11.9 - Type 2 diabetes mellitus without complications (4) Essential (primary) hypertension Current Visit: Yes Status: Chronic (5) Hyperlipemia Current Visit: Yes Status: Chronic Qualifiers: Hyperlipidemia type: unspecified Qualified Code(s): E78.5 - Hyperlipidemia , unspecified (6) Hypertension Current Visit: Yes Status: Chronic Qualifiers: Hypertension type: essential hypertension Qualified Code(s): I10 - Essential (primary) hypertension (7) PPD positive, treated Current Visit: Yes Status: Resolved (8) Alcohol-induced sleep disorder Current Visit: No Status: Acute (9) Elevated aspartate aminotransferase level Current Visit: Yes Status: Chronic (10) Frequent falls Current Visit: No Status: Acute (11) Hyperglycemia Current Visit: Yes Status: Chronic (12) Hypokalemia Current Visit: Yes Status: Chronic (13) Insomnia Current Visit: No Status: Acute (14) Syncope Current Visit: No Status: Acute Qualifiers: Syncope type: unspecified Qualified Code(s): R55 - Syncope and collapse (15) Alcohol dependence with uncomplicated withdrawal Current Visit: Yes Status: Chronic (16) Depressive disorder Current Visit: No Status: Chronic (17) Diabetes mellitus treated with oral medication Current Visit: No Status: Chronic (18) Hx of coronary artery disease Current Visit: No Status: Chronic (19) Hyperglycemia due to type 2 diabetes mellitus Current Visit: No Status: Chronic (20) MDD (major depressive disorder) Current Visit: Yes Status: Chronic (21) Obesity (BMI 30-39.9) Current Visit: No Status: Chronic (22) Seizure disorder Current Visit: Yes Status: Chronic (23) Alcohol-induced mood disorder Current Visit: No Status: Suspected (24) Depressed Current Visit: No Status: Suspected Qualifiers: Depression Type: dysthymia Qualified Code(s): F34.1 - Dysthymic disorder (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
[2019-07-14] MEDS ORDERED: ATENOLOL 50 MG TABLET (FP) PO SCH (10:00)
[2019-07-14] MEDS ORDERED: PRENATAL VITAMINS W/ FOLIC ACID TABLET (FP) PO SCH (10:00)
[2019-07-14] MEDS ORDERED: PATIENT'S OWN MEDICATION (NON-FORMULARY) (Atenolol [Tenormin -] 100 MG) PO SCH (10:00)
[2019-07-14] MEDS ORDERED: FOLIC ACID 1 MG TABLET (FP) PO SCH (10:00)
[2019-07-14] MEDS ORDERED: PATIENT'S OWN MEDICATION (NON-FORMULARY) (Lisinopril [Prinivil -] 40 MG) PO SCH (10:00)
[2019-07-14] MEDS ORDERED: ASPIRIN 81 MG CHEWABLE TABLETS PO SCH (10:00)
[2019-07-14] MEDS ORDERED: GEMFIBROZIL 600 MG TABLET (FP) PO SCH (10:00)
[2019-07-14] MEDS ORDERED: levETIRAcetam 500 MG TABLET (FP) PO SCH (10:00)
[2019-07-14] MEDS ORDERED: THIAMINE HCL 100 MG TABLET (FP) PO SCH (22:00)
[2019-07-15] MEDS ORDERED: chlordiazePOXIDE HCL 25 MG CAPSULE PO SCH (05:00)
[2019-07-16] MEDS ORDERED: chlordiazePOXIDE HCL 10 MG CAPSULE PO PRN
[2019-07-16] MEDS ORDERED: chlordiazePOXIDE HCL 10 MG CAPSULE PO SCH (05:00)
[2019-07-17] MEDS ORDERED: chlordiazePOXIDE HCL 10 MG CAPSULE PO SCH (05:00)
[2019-07-18] MEDS ORDERED: chlordiazePOXIDE HCL 10 MG CAPSULE PO ONE (05:00)
== END 2019-07-14 10:46 | disposition short-term general hospital (02) | DRG 775 ==
LOC: YASAS 23:55 → Y6N 07-14 02:06
PROVIDERS: ADMIT Surgery; ATTEND Surgery
PROC: HZ2ZZZZ Detoxification Services for Substance Abuse Treatment (ICD-10-PCS; principal; 2019-07-14)
DX: F10.230 Alcohol dependence with withdrawal, uncomplicated (principal); F10.24 Alcohol dependence with alcohol-induced mood disorder; F10.282 Alcohol dependence with alcohol-induced sleep disorder; F60.1 Schizoid personality disorder; F34.1 Dysthymic disorder; F19.24 Other psychoactive substance dependence with psychoactive substance-induced mood disorder; I10 Essential (primary) hypertension; D50.9 Iron deficiency anemia, unspecified; E78.5 Hyperlipidemia, unspecified; E11.65 Type 2 diabetes mellitus with hyperglycemia; R76.11 Nonspecific reaction to tuberculin skin test without active tuberculosis; R74.0 Nonspecific elevation of levels of transaminase and lactic acid dehydrogenase [LDH]; E87.6 Hypokalemia; G47.00 Insomnia, unspecified; G40.909 Epilepsy, unspecified, not intractable, without status epilepticus; Z87.891 Personal history of nicotine dependence; E66.9 Obesity, unspecified; Z68.30 Body mass index [BMI] 30.0-30.9, adult; Z86.79 Personal history of other diseases of the circulatory system; Z88.8 Allergy status to other drugs, medicaments and biological substances; Z90.5 Acquired absence of kidney; Z79.82 Long term (current) use of aspirin; Z59.0 Homelessness
CPT/HCPCS: 82962

== ENCOUNTER 2019-07-14 08:06 | Inpatient (IN) | payer OTHER ==
[2019-07-14] MEDS ORDERED: LORazepam 2 MG/ML SDV VIAL ONE ×2 (08:17→09:15)
[2019-07-14] MEDS ORDERED: diazePAM CARPU-JECT 10 MG/2 ML DISP.SYRIN IVPUSH ONE ×3 (08:21→10:29)
[2019-07-14] MEDS ORDERED: SODIUM CHLORIDE 1,000 ML IV STA (08:21)
--- NOTE | 2019-07-14 08:24 | PDOC ---
History of Present Illness - General Chief Complaint: Seizure Stated Complaint: SEIZURE Time Seen by Provider: 07/14/19 08:16 - History of Present Illness Initial Comments: 07/14/19 08:25 Mr. Jade is a 54 yo male w/ pmh of HTN, ETOH abuse w/ hx of withdrawal seizures, DM who presents from [facility] rehab facility for evaluation of seizure. Of note, patient was evaluated in same ER yesterday for alcohol intoxication and was sent to [facility] for management of withdrawal. Patient had limited seizure upon arrival to ED prior to interview for which IM ativan was given w/ seizure cessation. Past History - Past Medical History Allergies/Adverse Reactions: Allergies Allergy/AdvReac Type Severity Reaction Status Date / Time RASHAD Inhibitors Allergy Severe Swelling Verified 07/14/19 00:03 lisinopril Allergy Severe Swelling Verified 07/14/19 00:03 Home Medications: Ambulatory Orders Aspirin [ASA -] 81 mg PO DAILY #30 tab.chew 03/14/19 levETIRAcetam [Keppra -] 500 mg PO BID #60 tablet 04/21/19 metFORMIN HCL [Glucophage -] 1,000 mg PO BID@0700,1630 #60 tablet 04/21/19 Atenolol [Tenormin -] 100 mg PO DAILY 05/27/19 Gemfibrozil 600 mg PO BID 05/27/19 Lisinopril [Prinivil -] 40 mg PO DAILY 05/27/19 Folic Acid 1 tab PO DAILY 07/13/19 Gabapentin [Neurontin] 300 mg PO TID 07/13/19 Anemia: No Asthma: No Cancer: No Cardiac Disorders: Yes (heart attack 6 year ago, HTN, HLD) CVA: No COPD: No CHF: No Dementia: No Diabetes: Yes (on metformin) GI Disorders: No Disorders: No HTN: Yes Hypercholesterolemia: Yes (Gemfibra) Kidney Stones: No Liver Disease: No Psychiatric Problems: Yes (etoh/) Seizures: Yes (april 2019 while detoxing from alcohol) Thyroid Disease: No - Surgical History Abdominal Surgery: No Appendectomy: No Cardiac Surgery: No Cholecystectomy: No Lung Surgery: No Neurologic Surgery: No Orthopedic Surgery: No - Reproductive History Testicular Surgery: No - Immunization History Immunization Up to Date: No - Psycho Social/Smoking Cessation Hx Smoking History: Never smoked Have you smoked in the past 12 months: No Number of Cigarettes Smoked Daily: 1 If you are a former smoker, when did you quit?: at age 19 Cigars Per Day: 1 'Breaking Loose' booklet given: 01/31/19 Hx Alcohol Use: Yes (daily) Drug/Substance Use Hx: (denies) Substance Use Type: Alcohol Hx Substance Use Treatment: Yes ([facility]) Review of Systems - Review of Systems Comments:: 07/14/19 08:28 Unable to obtain further. *Physical Exam - Physical Exam Comments: 07/14/19 08:29 GENERAL: Patient sleeping soundly s/p ativan administration. In no acute distress HEAD: No signs of trauma, normocephalic, atraumatic EYES: PERRLA, EOMI, sclera anicteric, conjunctiva clear ENT: Auricles normal inspection, hearing grossly normal, nares patent, oropharynx clear without exudates. Moist mucosa NECK: Normal ROM, supple, no lymphadenopathy, JVD, or masses LUNGS: No distress, clear to auscultation bilaterally HEART: Regular rate and rhythm, normal S1 and S2, no murmurs, rubs or gallops, peripheral pulses normal and equal bilaterally. ABDOMEN: Soft, nontender, normoactive bowel sounds. No guarding, no rebound. No masses EXTREMITIES: Normal inspection, Normal range of motion, no edema. No clubbing or cyanosis. NEUROLOGICAL: +Unable to assess further. SKIN: Warm, Dry, normal turgor, no rashes or lesions noted. ED Treatment Course - LABORATORY CBC & Chemistry Diagram: 07/14/19 08:30 07/14/19 10:34 - RADIOLOGY Radiology Studies Ordered: Category Date Time Status CHEST X-RAY PORTABLE* [RAD] Stat Radiology 07/14/19 08:21 Ordered - Medications Given in the ED: ED Medications Discontinued Medications Generic Name Dose Route Start Last Admin Trade Name Freq PRN Reason Stop Dose Admin Lorazepam 2 mg 07/14/19 08:20 07/14/19 08:22 Ativan Injection - IM 07/14/19 08:21 2 mg ONCE ONE Administration Medical Decision Making - Medical Decision Making 07/14/19 08:30 Mr. Jade is a 54 yo male w/ pmh as described who presents for seizure evaluation w/ seizure upon arrival to ED concerning for active withdrawal from ETOH. Patient evaluation started with BGM (170's), EKG, laboratory evaluation, and cardiac monitoring. Given 10mg valium IV for prophylaxis 07/14/19 09:51 Patient noted to be seizing; additional 10mg valium given. Patient noted to have unclear history of seizures and has been on keppra in the past. 1gm Keppra given for prophylaxis. 07/14/19 11:29 Patient requiring another 10mg valium. Admitting to hospitalist for further withdrawal care. EKG normal sinus rhythm. 07/14/19 11:45 Patient admitted to hospitalist for further care. Discharge - Discharge Information Problems reviewed: Yes Clinical Impression/Diagnosis: Withdrawal symptoms, alcohol Qualifiers: Complication of substance-induced condition: with unspecified complication Qualified Code(s): F10.239 - Alcohol dependence with withdrawal, unspecified - Admission Yes - Follow up/Referral - Patient Discharge Instructions - Post Discharge Activity
[2019-07-14] MEDS ORDERED: diazePAM CARPU-JECT 10 MG/2 ML DISP.SYRIN ONE ×3 (08:27→10:30)
--- NOTE | 2019-07-14 08:56 | PDOC ---
Attending Attestation - Resident Resident Name: Petar Zavala - HPI HPI: 07/14/19 08:57 Pt presents to the ED after sent in from [facility] for seizure today. History of chronic heavy ETOH use. On arrival to the ED, found to be actively seizing. REsolved with 2 mg ativan IM. Patient is now sleeping, opens eyes to sternal rub but is unable to give history. - Physicial Exam PE: 07/14/19 09:18 agree with resident exam. Patient is post ictal and arousable to sternal rub. + small abrasion to upper lip. No other signs of trauma. - Medical Decision Making 07/14/19 09:20 Pt presents to the ED after sent in from [facility] for seizure. Patient found to be actively seizing on arrival to the ED, broke with 2 mg of ativan. Given 10mg valium to treat for ETOH withdrawal, but then had another witnessed tonic clonic seizure. Given another 10 mg valium and loaded with keppra. Will continue to treat with valium and admit to medicine for ETOH withdrawal.
[2019-07-14 09:03] LABS: BASO % 1.3 % (0-2.0); EOS % 0.2 % (0-4.5); HEMATOCRIT 32.9 % (35.4-49); HEMOGLOBIN 11.6 GM/dL (11.7-16.9); LYMPH % 62.4 % (8-40); MCH 31.1 pg (25.7-33.7); MCHC 35.1 g/dl (32.0-35.9); MEAN CELL VOLUME 88.5 fl (80-96); MEAN PLT VOLUME 7.2 fl (7.5-11.1); MONO % 10.8 % (3.8-10.2); NEUT % 25.3 % (42.8-82.8); PLATELET COUNT 201 K/MM3 (134-434); RBC 3.72 M/mm3 (4.00-5.60); RDW 16.9 % (11.9-15.9); WHITE BLOOD COUNT 4.2 K/mm3 (4.0-10.0)
[2019-07-14] MEDS ORDERED: levETIRAcetam 500 MG/5 ML INJECTION VIAL IVPB ONE ×2 (09:19→09:20)
[2019-07-14 11:10] LABS: ANISOCYTOSIS 0; MACROCYTOSIS 0; PLATELET ESTIMATE NORMAL
[2019-07-14 11:11] LABS: ALBUMIN 3.3 g/dl (3.4-5.0); BILIRUBIN,TOTAL 0.3 mg/dL (0.2-1); BLOOD UREA NITROGEN 16.4 mg/dL (7-18); CALCIUM 8.2 mg/dL (8.5-10.1); CREATININE 0.9 mg/dL (0.55-1.3); POTASSIUM 4.3 mmol/L (3.5-5.1); TOT PROT 7.9 g/dl (6.4-8.2)
[2019-07-14] MEDS ORDERED: ACETAMINOPHEN 500 MG TABLET (FP) PO ONE (14:54)
--- NOTE | 2019-07-14 17:37 | HP ---
Admitting History and Physical - Primary Care Physician PCP: Donato Castorena - Admission History of Present Illness: Mr. Jade is a 54 yo male w/ pmh of HTN, ETOH abuse w/ hx of withdrawal seizures, DM who presents from [facility] rehab facility for evaluation of seizure. Of note, patient was evaluated in same ER yesterday for alcohol intoxication and was sent to [facility] for management of withdrawal. Patient had limited seizure upon arrival to ED prior to interview for which IM ativan was given w/ seizure cessation. - Smoking History Smoking history: Never smoked Have you smoked in the past 12 months: No Aproximately how many cigarettes per day: 1 If you are a former smoker, when did you quit?: at age 19 - Alcohol/Substance Use Hx Alcohol Use: Yes (daily) Home Medications - Allergies Allergies/Adverse Reactions: Allergies Allergy/AdvReac Type Severity Reaction Status Date / Time RASHAD Inhibitors Allergy Severe Swelling Verified 07/14/19 00:03 lisinopril Allergy Severe Swelling Verified 07/14/19 00:03 - Home Medications Home Medications: Ambulatory Orders Aspirin [ASA -] 81 mg PO DAILY #30 tab.chew 03/14/19 levETIRAcetam [Keppra -] 500 mg PO BID #60 tablet 04/21/19 metFORMIN HCL [Glucophage -] 1,000 mg PO BID@0700,1630 #60 tablet 04/21/19 Atenolol [Tenormin -] 100 mg PO DAILY 05/27/19 Gemfibrozil 600 mg PO BID 05/27/19 Lisinopril [Prinivil -] 40 mg PO DAILY 05/27/19 Folic Acid 1 tab PO DAILY 07/13/19 Gabapentin [Neurontin] 300 mg PO TID 07/13/19 Physical Examination Vital Signs: Vital Signs Temperature 100 F H 07/14/19 11:45 Pulse Rate 106 H 07/14/19 14:56 Respiratory Rate 16 07/14/19 14:56 Blood Pressure 154/74 07/14/19 14:56 O2 Sat by Pulse Oximetry (%) 99 07/14/19 14:56 Constitutional: Yes: Calm HENT: Yes: Atraumatic Neck: Yes: Supple Cardiovascular: Yes: Regular Rate and Rhythm Respiratory: Yes: CTA Bilaterally Gastrointestinal: Yes: Normal Bowel Sounds Extremities: Yes: WNL Labs: CBC, BMP 07/14/19 08:30 07/14/19 10:34 Problem List - Problems (1) Withdrawal symptoms, alcohol Assessment/Plan: prn ativan detox consult Code(s): F10.239 - ALCOHOL DEPENDENCE WITH WITHDRAWAL, UNSPECIFIED Qualifiers: Complication of substance-induced condition: with unspecified complication Qualified Code(s): F10.239 - Alcohol dependence with withdrawal, unspecified (2) DM2 (diabetes mellitus, type 2) Assessment/Plan: monitor bgms Code(s): E11.9 - TYPE 2 DIABETES MELLITUS WITHOUT COMPLICATIONS Qualifiers: (3) Depressive disorder Code(s): F32.9 - MAJOR DEPRESSIVE DISORDER, SINGLE EPISODE, UNSPECIFIED (4) Essential (primary) hypertension Code(s): I10 - ESSENTIAL (PRIMARY) HYPERTENSION (5) Hyperlipemia Code(s): E78.5 - HYPERLIPIDEMIA, UNSPECIFIED Qualifiers: (6) Seizure disorder Assessment/Plan: on [facility] neuro consult Code(s): G40.909 - EPILEPSY, UNSP, NOT INTRACTABLE, WITHOUT STATUS EPILEPTICUS Assessment/Plan Laboratory Tests 07/14/19 07/14/19 07/14/19 08:30 08:30 08:30 WBC 4.2 RBC 3.72 L Hgb 11.6 L Hct 32.9 L MCV 88.5 MCH 31.1 MCHC 35.1 RDW 16.9 H Plt Count 201 MPV 7.2 L Absolute Neuts (auto) 1.1 L Neutrophils % 25.3 L D Neutrophils % (Manual) 28.4 L Band Neutrophils % 2.0 Lymphocytes % 62.4 H D Lymphocytes % (Manual) 58.8 H Monocytes % 10.8 H Monocytes % (Manual) 4 Eosinophils % 0.2 Eosinophils % (Manual) 0.0 Basophils % 1.3 D Basophils % (Manual) 1.0 Myelocytes % (Man) 2 Promyelocytes % (Man) 0 Blast Cells % (Manual) 0 Nucleated RBC % 0 Metamyelocytes 1 Hypochromia 0 Platelet Estimate Normal Polychromasia 0 Poikilocytosis 0 Anisocytosis 0 Microcytosis 0 Macrocytosis 0 Sodium Cancelled Potassium Cancelled Chloride Cancelled Carbon Dioxide Cancelled Anion Gap Cancelled BUN Cancelled Creatinine Cancelled Est GFR (CKD-EPI)AfAm Cancelled Est GFR (CKD-EPI)NonAf Cancelled Random Glucose Cancelled Calcium Cancelled Total Bilirubin Cancelled AST Cancelled ALT Cancelled Alkaline Phosphatase Cancelled Total Protein Cancelled Albumin Cancelled Alcohol, Quantitative Cancelled 07/14/19 10:34 WBC RBC Hgb Hct MCV MCH MCHC RDW Plt Count MPV Absolute Neuts (auto) Neutrophils % Neutrophils % (Manual) Band Neutrophils % Lymphocytes % Lymphocytes % (Manual) Monocytes % Monocytes % (Manual) Eosinophils % Eosinophils % (Manual) Basophils % Basophils % (Manual) Myelocytes % (Man) Promyelocytes % (Man) Blast Cells % (Manual) Nucleated RBC % Metamyelocytes Hypochromia Platelet Estimate Polychromasia Poikilocytosis Anisocytosis Microcytosis Macrocytosis Sodium 137 Potassium 4.3 Chloride 102 Carbon Dioxide 25 Anion Gap 10 BUN 16.4 Creatinine 0.9 Est GFR (CKD-EPI)AfAm 111.05 Est GFR (CKD-EPI)NonAf 95.81 Random Glucose 142 H Calcium 8.2 L Total Bilirubin 0.3 AST 112 H ALT 79 H Alkaline Phosphatase 130 H Total Protein 7.9 Albumin 3.3 L Alcohol, Quantitative 61.8 H Active Medications Generic Name Dose Route Start Last Admin Trade Name Freq PRN Reason Stop Dose Admin Acetaminophen 650 mg 07/14/19 20:41 07/14/19 21:18 Tylenol - PO 650 mg Q6H PRN Administration PAIN SCALE 5-10/ HEADACHE Aspirin 81 mg 07/15/19 10:00 07/15/19 09:46 Asa - PO 81 mg DAILY GIACOMO Administration Atenolol 100 mg 07/15/19 10:00 07/15/19 09:46 Tenormin - PO 100 mg DAILY GIACOMO Administration Folic Acid 1 mg 07/15/19 10:00 07/15/19 09:46 Folic Acid - PO 1 mg DAILY GIACOMO Administration Gabapentin 300 mg 07/14/19 22:00 07/15/19 13:31 Neurontin - PO 300 mg TID GIACOMO Administration Gemfibrozil 600 mg 07/14/19 22:00 07/15/19 09:46 Lopid - PO 600 mg BID GIACOMO Administration Heparin Sodium (Porcine) 5,000 unit 07/14/19 22:00 07/15/19 09:46 Heparin - SQ 5,000 unit BID GIACOMO Administration Levetiracetam 500 mg 07/14/19 22:00 07/15/19 09:46 Keppra - PO 500 mg BID GIACOMO Administration Non-Formulary Medication 40 mg 07/15/19 10:00 Lisinopril [Prinivil -] PO DAILY GIACOMO
[2019-07-14] MEDS ORDERED: ACETAMINOPHEN 325 MG TABLET (FP) PO PRN (20:41)
[2019-07-14] MEDS: levETIRAcetam 500 MG TABLET (FP) PO SCH (21:17)
[2019-07-14] MEDS: GABAPENTIN 300 MG CAPSULE (FP) PO SCH (21:17)
[2019-07-14] MEDS: HEPARIN NA (PORCINE) 5,000 UNITS/ML 1ML VIAL SQ SCH (21:19)
[2019-07-14] MEDS: GEMFIBROZIL 600 MG TABLET (FP) PO SCH (23:02)
[2019-07-15 02:28] VITALS: BMI 30.5
[2019-07-15] MEDS: GABAPENTIN 300 MG CAPSULE (FP) PO SCH ×3 (06:14→21:19)
[2019-07-15] MEDS ORDERED: PT OWN MED DRAWER 7, Y5N ONE (09:37)
[2019-07-15] MEDS: ATENOLOL 50 MG TABLET (FP) PO SCH (09:46)
[2019-07-15] MEDS: FOLIC ACID 1 MG TABLET (FP) PO SCH (09:46)
[2019-07-15] MEDS: levETIRAcetam 500 MG TABLET (FP) PO SCH ×2 (09:46→21:19)
[2019-07-15] MEDS: HEPARIN NA (PORCINE) 5,000 UNITS/ML 1ML VIAL SQ SCH ×2 (09:46→21:20)
[2019-07-15] MEDS: GEMFIBROZIL 600 MG TABLET (FP) PO SCH ×2 (09:46→21:20)
[2019-07-15] MEDS: ASPIRIN 81 MG CHEWABLE TABLETS PO SCH (09:46)
[2019-07-15] MEDS ORDERED: PATIENT'S OWN MEDICATION (NON-FORMULARY) (Lisinopril [Prinivil -] 40 MG) PO SCH (10:00)
--- NOTE | 2019-07-15 10:13 | EKG ---
Test Reason : Blood Pressure : / mmHG Vent. Rate : 105 BPM Atrial Rate : 105 BPM P-R Int : 182 ms QRS Dur : 084 ms QT Int : 344 ms P-R-T Axes : 047 040 082 degrees QTc Int : 454 ms SINUS TACHYCARDIA NONSPECIFIC T WAVE ABNORMALITY ABNORMAL ECG WHEN COMPARED WITH ECG OF 17-APR-2019 01:03, NONSPECIFIC T WAVE ABNORMALITY NO LONGER EVIDENT IN INFERIOR LEADS Confirmed by Serge Fatima MD ([id number]) on 07/15/2019 10:13:20 AM Referred By: Confirmed By:Serge Fatima MD
--- NOTE | 2019-07-15 15:55 | CON.NEURO ---
Consult - History of Present Illness History of Present Illness: 54 yo male w/ pmh of HTN, ETOH abuse w/ hx of withdrawal seizures, DM who presents from [facility] rehab facility for evaluation of seizure. Of note, patient was evaluated in same ER yesterday for alcohol intoxication and was sent to [facility] for management of withdrawal. Patient had limited seizure upon arrival to ED prior to interview for which IM ativan was given w/ seizure cessation + etoh level CT HD (-) - Alcohol/Substance Use Hx Alcohol Use: Yes (daily) - Smoking History Smoking history: Never smoked Have you smoked in the past 12 months: No Aproximately how many cigarettes per day: 1 If you are a former smoker, when did you quit?: at age 19 Home Medications - Allergies Allergies/Adverse Reactions: Allergies Allergy/AdvReac Type Severity Reaction Status Date / Time RASHAD Inhibitors Allergy Severe Swelling Verified 07/14/19 00:03 lisinopril Allergy Severe Swelling Verified 07/14/19 00:03 - Home Medications Home Medications: Ambulatory Orders Aspirin [ASA -] 81 mg PO DAILY #30 tab.chew 03/14/19 levETIRAcetam [Keppra -] 500 mg PO BID #60 tablet 04/21/19 metFORMIN HCL [Glucophage -] 1,000 mg PO BID@0700,1630 #60 tablet 04/21/19 Atenolol [Tenormin -] 100 mg PO DAILY 05/27/19 Gemfibrozil 600 mg PO BID 05/27/19 Lisinopril [Prinivil -] 40 mg PO DAILY 05/27/19 Folic Acid 1 tab PO DAILY 07/13/19 Gabapentin [Neurontin] 300 mg PO TID 07/13/19 Physical Exam-Neuro Vital Signs: Vital Signs Temperature 98.8 F 07/15/19 15:35 Pulse Rate 72 07/15/19 15:35 Respiratory Rate 18 07/15/19 15:35 Blood Pressure 124/74 07/15/19 15:35 O2 Sat by Pulse Oximetry (%) 100 07/15/19 09:00 Labs: CBC, BMP 07/14/19 08:30 07/14/19 10:34 - Neuro Exam Level Of Consciousness: Yes: Alert (awake, alert, OEMi, on facial, no drift, no focal weakness ) Imaging - Results Cat Scan: Report Reviewed, Image Reviewed Problem List - Problems (1) Withdrawal symptoms, alcohol Code(s): F10.239 - ALCOHOL DEPENDENCE WITH WITHDRAWAL, UNSPECIFIED Qualifiers: Complication of substance-induced condition: with unspecified complication Qualified Code(s): F10.239 - Alcohol dependence with withdrawal, unspecified (2) Alcohol-induced sleep disorder Code(s): F10.982 - ALCOHOL USE, UNSPECIFIED WITH ALCOHOL-INDUCED SLEEP DISORDER Assessment/Plan 54 yo male w/ pmh of HTN, ETOH abuse w/ hx of withdrawal seizures, DM who presents from [facility] rehab facility for evaluation of seizure. Of note, patient was evaluated in same ER yesterday for alcohol intoxication and was sent to [facility] for management of withdrawal. Patient had limited seizure upon arrival to ED prior to interview for which IM ativan was given w/ seizure cessation. states he stake keppra for Seizure, ? compliance + etoh level CT HD (-) AP : HX of seizure in setting of ETOH , back to baseline cont keppra 500BID librium or ativan protocol as per primary team neurologically stable DR REBOLLAR
--- NOTE | 2019-07-15 19:15 | PN ---
Progress Note, Physician History of Present Illness: stable - Current Medication List Current Medications: Active Medications Acetaminophen (Tylenol -) 650 mg PO Q6H PRN PRN Reason: PAIN SCALE 5-10/ HEADACHE Last Admin: 07/14/19 21:18 Dose: 650 mg Aspirin (Asa -) 81 mg PO DAILY [facility] Last Admin: 07/15/19 09:46 Dose: 81 mg Atenolol (Tenormin -) 100 mg PO DAILY [facility] Last Admin: 07/15/19 09:46 Dose: 100 mg Folic Acid (Folic Acid -) 1 mg PO DAILY [facility] Last Admin: 07/15/19 09:46 Dose: 1 mg Gabapentin (Neurontin -) 300 mg PO TID [facility] Last Admin: 07/15/19 13:31 Dose: 300 mg Gemfibrozil (Lopid -) 600 mg PO BID [facility] Last Admin: 07/15/19 09:46 Dose: 600 mg Heparin Sodium (Porcine) (Heparin -) 5,000 unit SQ BID [facility] Last Admin: 07/15/19 09:46 Dose: 5,000 unit Levetiracetam (Keppra -) 500 mg PO BID [facility] Last Admin: 07/15/19 09:46 Dose: 500 mg Non-Formulary Medication (Lisinopril [Prinivil -]) 40 mg PO DAILY [facility] - Objective Vital Signs: Vital Signs Temperature 98.8 F 07/15/19 15:35 Pulse Rate 72 07/15/19 15:35 Respiratory Rate 18 07/15/19 17:00 Blood Pressure 124/74 07/15/19 15:35 O2 Sat by Pulse Oximetry (%) 99 07/15/19 17:00 Constitutional: Yes: No Distress HENT: Yes: Atraumatic Neck: Yes: Supple Cardiovascular: Yes: Regular Rate and Rhythm Respiratory: Yes: CTA Bilaterally Gastrointestinal: Yes: Normal Bowel Sounds Extremities: Yes: WNL Edema: No Neurological: Yes: Alert, Oriented Labs: CBC, BMP 07/14/19 08:30 07/14/19 10:34 Problem List - Problems (1) Withdrawal symptoms, alcohol Assessment/Plan: prn ativan detox consult stable Code(s): F10.239 - ALCOHOL DEPENDENCE WITH WITHDRAWAL, UNSPECIFIED Qualifiers: Complication of substance-induced condition: with unspecified complication Qualified Code(s): F10.239 - Alcohol dependence with withdrawal, unspecified (2) DM2 (diabetes mellitus, type 2) Assessment/Plan: monitor bgms Code(s): E11.9 - TYPE 2 DIABETES MELLITUS WITHOUT COMPLICATIONS Qualifiers: (3) Depressive disorder Code(s): F32.9 - MAJOR DEPRESSIVE DISORDER, SINGLE EPISODE, UNSPECIFIED (4) Essential (primary) hypertension Code(s): I10 - ESSENTIAL (PRIMARY) HYPERTENSION (5) Hyperlipemia Code(s): E78.5 - HYPERLIPIDEMIA, UNSPECIFIED Qualifiers: (6) Seizure disorder Assessment/Plan: on keppra can be dc back to [facility] Code(s): G40.909 - EPILEPSY, UNSP, NOT INTRACTABLE, WITHOUT STATUS EPILEPTICUS
[2019-07-16 05:43] VITALS: BP 127/82; PULSE 72; TEMP 98.4
[2019-07-16] MEDS: GABAPENTIN 300 MG CAPSULE (FP) PO SCH (05:44)
[2019-07-16] MEDS ORDERED: PT OWN MED DRAWER 7, Y5N ONE (10:26)
[2019-07-16] MEDS: levETIRAcetam 500 MG TABLET (FP) PO SCH (10:31)
[2019-07-16] MEDS: ATENOLOL 50 MG TABLET (FP) PO SCH (10:31)
[2019-07-16] MEDS: GEMFIBROZIL 600 MG TABLET (FP) PO SCH (10:31)
[2019-07-16] MEDS: ASPIRIN 81 MG CHEWABLE TABLETS PO SCH (10:32)
[2019-07-16] MEDS: HEPARIN NA (PORCINE) 5,000 UNITS/ML 1ML VIAL SQ SCH (10:32)
[2019-07-16] MEDS: FOLIC ACID 1 MG TABLET (FP) PO SCH (10:32)
== END 2019-07-16 11:11 | disposition short-term general hospital (02) | DRG 53 ==
LOC: JER 08:06 → JERBED 09:05 → UNDOADMOB 09:05 → INTOOBSV 09:05 → JERBED 17:37 → J4W 19:13 → OBSVTOIN 07-15 14:10
PROVIDERS: ADMIT Internal Medicine; ATTEND Internal Medicine
DX: R56.9 Unspecified convulsions (principal); F10.239 Alcohol dependence with withdrawal, unspecified; E11.9 Type 2 diabetes mellitus without complications; E78.5 Hyperlipidemia, unspecified; F32.9 Major depressive disorder, single episode, unspecified; I10 Essential (primary) hypertension
CPT/HCPCS: 36415; 70450-TC; 71045-TC-FY; 80053; 80307; 82962; 85025; 93005; 93010; 99285-25; G0378; J1644; J7030

== ENCOUNTER 2019-07-16 11:57 | Inpatient (IN) | payer OTHER ==
[2019-07-16 12:13] VITALS: BMI 30.7
--- NOTE | 2019-07-16 13:37 | HP ---
CIWA Score Nausea/Vomitin Muscle Tremors: 2 Anxiety: 2 Agitation: 1-Slight > Activity Paroxysmal Sweats: 5 Orientation: 0-Oriented Tacttile Disturbances: 0-None Auditory Disturbances: 0-None Visual Disturbances: 0-None Headache: 0-None Present (patient needs to continue detox because he was sent to ER [facility] with seizure probably caused by withdrawals from alcohol yesterday. ) CIWA-Ar Total Score: 16 - Admission Criteria OASAS Guidelines: Admission for Medically Managed Detox: Requires at least one of the followin. CIWA greater than 12 2. Seizures within the past 24 hours 3. Delirium tremens within the past 24 hours 4. Hallucinations within the past 24 hours 5. Acute intervention needed for co occurring medical disorder 6. Acute intervention needed for co occurring psychiatric disorder 7. Severe withdrawal that cannot be handled at a lower level of care (continued vomiting, continued diarrhea, abnormal vital signs) requiring intravenous medication and/or fluids 8. Admitting History and Physical - Admission Chief Complaint: Patient returning from [facility] after suffering a seizure. Keppra was re-initiated on patient. History of Present Illness: 54 year old black male with history of alcohol dependence with withdrawals. Patient has HTN, Seizure Disorder, Hypercholesterolemia, NIDDM. Though been admitted the day prior he suffered a seizure and was sent to [facility] ER and now returns for readmission. Please see prior admission for detox. Psurg: Left Kidney stone removal History Source: Patient Limitations to Obtaining History: No Limitations - Smoking History Smoking history: Never smoked Have you smoked in the past 12 months: No Aproximately how many cigarettes per day: 1 If you are a former smoker, when did you quit?: at age 19 - Alcohol/Substance Use Hx Alcohol Use: Yes (daily) Number of Drinks Daily: 5 (hard liquor) Date of Last Use: 07/14/19 - Social History Usual Living Arrangement: Yes: Alone Do you think of yourself as: Straight/Heterosexual ADL: Independent 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 History of Recent Travel: No Admission ROS [facility] - [facility] Chief Complaint: "I want to finish my detox." Allergies/Adverse Reactions: Allergies Allergy/AdvReac Type Severity Reaction Status Date / Time RASHAD Inhibitors Allergy Severe Swelling Verified 07/14/19 00:03 lisinopril Allergy Severe Swelling Verified 07/14/19 00:03 History of Present Illness: See PMH section. Exam Limitations: No Limitations - Ebola screening Have you traveled outside of the country in the last 21 days: No (N) Have you had contact with anyone from an Ebola affected area: No Have you been sick,other than usual withdrawal symptoms: No Do you have a fever: No Patient History - Patient Medical History Hx Anemia: No Hx Asthma: No Hx Chronic Obstructive Pulmonary Disease (COPD): No Hx Cancer: No Hx Cardiac Disorders: No Hx Congestive Heart Failure: No Hx Hypertension: Yes Hx Hypercholesterolemia: Yes (Gemfibra) Hx Pacemaker: No HX Cerebrovascular Accident: No Hx Seizures: Yes (etoh related seizures last 07/14/19) Hx Dementia: No Hx Diabetes: Yes (Type II BGM 220mg/dl) Hx Gastrointestinal Disorders: No Hx Liver Disease: No Hx Genitourinary Disorders: No Hx Sexually Transmitted Disorders: No Hx Renal Disease (ESRD): No Hx Thyroid Disease: No Hx Human Immunodeficiency Virus (HIV): No (Negative 2018 in 09/01) Hx Hepatitis C: No Hx Depression: No Hx Suicide Attempt: No Hx Bipolar Disorder: No Hx Schizophrenia: No - Patient Surgical History Past Surgical History: Yes Hx Neurologic Surgery: No Hx Cataract Extraction: No Hx Cardiac Surgery: No Hx Lung Surgery: No Hx Breast Surgery: No Hx Breast Biopsy: No Hx Abdominal Surgery: No Hx Appendectomy: No Hx Cholecystectomy: No Hx Genitourinary Surgery: Yes (L kidney stone removed 2015) Hx Section: No Hx Orthopedic Surgery: No Other Surgical History: left nephrectomy 2016 Anesthesia Reaction: No - PPD History Previous Implant?: Yes Documented Results: Positive w/proof Implanted On Prior [facility] Admission?: No Results: cxray(-)07/14/19 PPD to be Administered?: No - Smoking Cessation Smoking history: Never smoked Have you smoked in the past 12 months: No Aproximately how many cigarettes per day: 1 If you are a former smoker, when did you quit?: at age 19 Cigars Per Day: 1 Hx Chewing Tobacco Use: No Initiated information on smoking cessation: No - Substances abused Alcohol Substance route: Oral Frequency: Daily Amount used: 1 PINT VODKA + 2PACK BEER Age of first use: 18 Date of last use: 07/13/19 Admission Physical Exam BHS - Vital Signs Vital Signs: Vital Signs - 24 hr 07/16/19 12:11 Pulse Rate 70 Respiratory 18 Rate Blood Pressure 141/83 - Physical General Appearance: Yes: Mild Distress HEENTM: Yes: EOMI, Hearing grossly Normal, Normocephalic, Normal Voice, FIDEL, Pharynx Normal, Tm's normal Respiratory: Yes: Chest Non-Tender, Lungs Clear, Normal Breath Sounds, No Respiratory Distress, No Accessory Muscle Use Neck: Yes: No masses,lesions,Nodules, Trachea in good position Breast: Yes: Within Normal Limits, Axillae without masses, Breasts Symetrical, No Discharge, No masses Cardiology: Yes: Regular Rhythm, Regular Rate, S1, S2 Abdominal: Yes: Normal Bowel Sounds, Non Tender, Flat, Soft Genitourinary: Yes: Within Normal Limits Back: Yes: Normal Inspection Musculoskeletal: Yes: Within Normal Limits, full range of Motion, Gait Steady Extremities: Yes: Normal Capillary Refill, Normal Inspection, Normal Range of Motion, Non-Tender Neurological: Yes: Within Normal Limits, 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, Fully Oriented, Alert, Motor Strength 5/5 Integumentary: Yes: Normal Color, Warm Lymphatic: Yes: Within Normal Limits - Diagnostic (1) Alcohol-induced sleep disorder Current Visit: Yes Status: Acute (2) Frequent falls Current Visit: Yes Status: Acute (3) Syncope Current Visit: Yes Status: Acute Qualifiers: Syncope type: unspecified Qualified Code(s): R55 - Syncope and collapse (4) Alcohol dependence with uncomplicated withdrawal Current Visit: Yes Status: Chronic Cleared for Admission S - Detox or Rehab [facility] Level of Care: Medically Managed Screened but not Admitted - Documentation of Visit Screened but not Admitted: No Breathalyzer - Breathalyzer Breathalyzer: 0.190 (from prior day) Urine Drug Screen - Test Device Lot number: [id number] Expiration date: 03/13/21 - Control Is test valid?: Yes - Results Drug screen NEGATIVE: No Urine drug screen results: BZO-Benzodiazepines Inpatient Rehab Admission - Rehab Decision to Admit Inpatient rehab admission?: No
[2019-07-16] MEDS ORDERED: MAGNESIUM HYDROX 2400MG/30ML ORAL SUSPENSION 30 ML CUP PO PRN (13:42)
[2019-07-16] MEDS ORDERED: chlordiazePOXIDE HCL 10 MG CAPSULE PO PRN (13:42)
[2019-07-16] MEDS ORDERED: BISMUTH SUBSALICYLATE 524 MG/30 ML UD PO PRN (13:42)
[2019-07-16] MEDS ORDERED: ACETAMINOPHEN 325 MG TABLET (FP) PO PRN ×2 (13:42)
[2019-07-16] MEDS ORDERED: METHOCARBAMOL 500 MG TABLET PO PRN (13:42)
[2019-07-16] MEDS ORDERED: IBUPROFEN 400 MG TABLET (FP) PO PRN (13:42)
[2019-07-16] MEDS ORDERED: hydrOXYzine PAMOATE 25 MG CAPSULE (FP) PO PRN (13:42)
[2019-07-16] MEDS ORDERED: MAG HYDROX/AL HYDROX/SIMETH 30 ML UNIT-DOSE CUP PO PRN (13:42)
[2019-07-16] MEDS ORDERED: MAGNESIUM CITRATE 300 ML BOTTLE PO PRN (13:42)
[2019-07-16] MEDS ORDERED: MELATONIN 5 MG TABLETS PO PRN (13:42)
[2019-07-16] MEDS ORDERED: MENTHOL/PHENOL 1 EACH UD MM PRN (13:42)
[2019-07-16] MEDS: chlordiazePOXIDE HCL 25 MG CAPSULE PO SCH ×2 (14:29→21:23)
[2019-07-16] MEDS: metFORMIN HCL 500 MG TABLET (FP) PO SCH (17:25)
[2019-07-16] MEDS: GABAPENTIN 300 MG CAPSULE (FP) PO SCH ×2 (17:56→21:23)
[2019-07-16] MEDS: GEMFIBROZIL 600 MG TABLET (FP) PO SCH (20:24)
[2019-07-16] MEDS: THIAMINE HCL 100 MG TABLET (FP) PO SCH (21:23)
[2019-07-16] MEDS: levETIRAcetam 500 MG TABLET (FP) PO SCH (21:23)
[2019-07-16] MEDS ORDERED: GEMFIBROZIL 600 MG TABLET (FP) PO SCH (22:00)
[2019-07-17] MEDS: chlordiazePOXIDE HCL 25 MG CAPSULE PO SCH ×3 (05:50→22:26)
[2019-07-17] MEDS: GABAPENTIN 300 MG CAPSULE (FP) PO SCH ×3 (05:50→22:26)
[2019-07-17] MEDS: metFORMIN HCL 500 MG TABLET (FP) PO SCH ×2 (07:39→17:30)
[2019-07-17] MEDS: GEMFIBROZIL 600 MG TABLET (FP) PO SCH ×2 (08:53→18:12)
[2019-07-17] MEDS ORDERED: PATIENT'S OWN MEDICATION (NON-FORMULARY) (Lisinopril [Prinivil -] 40 MG) PO SCH (10:00)
[2019-07-17] MEDS: PRENATAL VITAMINS W/ FOLIC ACID TABLET (FP) PO SCH (10:36)
[2019-07-17] MEDS: ATENOLOL 50 MG TABLET (FP) PO SCH (10:36)
[2019-07-17] MEDS: levETIRAcetam 500 MG TABLET (FP) PO SCH ×2 (10:36→22:26)
[2019-07-17] MEDS: ASPIRIN 81 MG CHEWABLE TABLETS PO SCH (10:36)
--- NOTE | 2019-07-17 13:21 | PN ---
S CIWA - CIWA Score Nausea/Vomitin Muscle Tremors: 2 Anxiety: 2 Agitation: 0-Normal Activity Paroxysmal Sweats: 1-Minimal Palms Moist Orientation: 0-Oriented Tacttile Disturbances: 0-None Auditory Disturbances: 0-None Visual Disturbances: 1-Very Mild Sensitivity Headache: 2-Mild CIWA-Ar Total Score: 10 BHS Progress Note (SOAP) Subjective: c/o of body aches, interrupted sleep, chills. Reports was seen at [facility] ED from 07/15/19 -07/16/19 for seizure, started on keprrpa. Objective: 07/17/19 13:20 Vital Signs Temperature 97.7 F 07/17/19 09:34 Pulse Rate 70 07/17/19 09:34 Respiratory Rate 18 07/17/19 09:34 Blood Pressure 141/72 07/17/19 09:34 O2 Sat by Pulse Oximetry (%) Laboratory Last Values POC Glucometer 148 UNITS (80-120) 07/17/19 05:49 labs 07/14/19 reviewed , re: elevated LFTS repeat CMP Assessment: Aox3 no acute distress EENT WNL no adventitious breath sounds full ROM, no gait disturbance withdrawal sx Plan: increase fluids repeat CMP continue to monitor continue detox
[2019-07-17] MEDS: THIAMINE HCL 100 MG TABLET (FP) PO SCH (22:26)
[2019-07-18] MEDS: chlordiazePOXIDE 5 MG CAPSULE PO SCH ×3 (06:10→22:13)
[2019-07-18] MEDS: GABAPENTIN 300 MG CAPSULE (FP) PO SCH ×3 (06:11→22:14)
[2019-07-18] MEDS: metFORMIN HCL 500 MG TABLET (FP) PO SCH ×2 (07:11→17:32)
[2019-07-18] MEDS: GEMFIBROZIL 600 MG TABLET (FP) PO SCH ×2 (09:13→17:33)
[2019-07-18] MEDS: ATENOLOL 50 MG TABLET (FP) PO SCH (10:33)
[2019-07-18] MEDS: levETIRAcetam 500 MG TABLET (FP) PO SCH ×2 (10:33→22:13)
[2019-07-18] MEDS: ASPIRIN 81 MG CHEWABLE TABLETS PO SCH (10:33)
[2019-07-18] MEDS: PRENATAL VITAMINS W/ FOLIC ACID TABLET (FP) PO SCH (10:33)
--- NOTE | 2019-07-18 14:30 | PN ---
S CIWA - CIWA Score Nausea/Vomitin-No Nausea/No Vomiting Muscle Tremors: 1-None Visible, but [place] Anxiety: 3 Agitation: 3 Paroxysmal Sweats: No Perspiration Orientation: 0-Oriented Tacttile Disturbances: 0-None Auditory Disturbances: 0-None Visual Disturbances: 0-None Headache: 0-None Present CIWA-Ar Total Score: 7 BHS Progress Note (SOAP) Subjective: Patient c/o anxiety, restlessness and mild shakes. Objective: 07/18/19 14:30 Vital Signs Temperature 98.1 F 07/18/19 13:05 Pulse Rate 82 07/18/19 13:05 Respiratory Rate 18 07/18/19 13:05 Blood Pressure 157/90 07/18/19 13:05 O2 Sat by Pulse Oximetry (%) Laboratory Tests 07/16/19 07/16/19 07/17/19 12:42 16:39 05:49 POC Glucometer 202 165 148 07/17/19 07/18/19 16:42 07:09 POC Glucometer 190 154 PE alert and oriented x 3 skin warm and dry +perrla, eoms intact bl gi nt, nd ext full rom, mild tremors felt amb ad gini Assessment: 07/18/19 14:32 ETOH withdrawal symptoms Plan: continue detox encourage oral fluids monitor clinically
[2019-07-18 15:18] LABS: ALBUMIN 3.6 g/dl (3.4-5.0); BILIRUBIN,TOTAL 0.4 mg/dL (0.2-1); BLOOD UREA NITROGEN 14.3 mg/dL (7-18); CALCIUM 9.5 mg/dL (8.5-10.1); CREATININE 0.9 mg/dL (0.55-1.3); POTASSIUM 3.6 mmol/L (3.5-5.1); TOT PROT 8.3 g/dl (6.4-8.2)
[2019-07-18] MEDS: THIAMINE HCL 100 MG TABLET (FP) PO SCH (22:13)
[2019-07-19] MEDS ORDERED: chlordiazePOXIDE HCL 10 MG CAPSULE PO PRN
[2019-07-19] MEDS: GABAPENTIN 300 MG CAPSULE (FP) PO SCH ×3 (05:39→22:41)
[2019-07-19] MEDS: metFORMIN HCL 500 MG TABLET (FP) PO SCH ×2 (06:11→17:07)
[2019-07-19] MEDS: chlordiazePOXIDE HCL 10 MG CAPSULE PO SCH ×3 (06:11→22:41)
[2019-07-19] MEDS: levETIRAcetam 500 MG TABLET (FP) PO SCH ×2 (11:10→22:41)
[2019-07-19] MEDS: ATENOLOL 50 MG TABLET (FP) PO SCH (11:10)
[2019-07-19] MEDS: PRENATAL VITAMINS W/ FOLIC ACID TABLET (FP) PO SCH (11:10)
[2019-07-19] MEDS: ASPIRIN 81 MG CHEWABLE TABLETS PO SCH (11:10)
--- NOTE | 2019-07-19 12:42 | PN ---
S CIWA - CIWA Score Nausea/Vomitin-No Nausea/No Vomiting Muscle Tremors: None Anxiety: 2 Agitation: 0-Normal Activity Paroxysmal Sweats: 2 Orientation: 0-Oriented Tacttile Disturbances: 0-None Auditory Disturbances: 0-None Visual Disturbances: 0-None Headache: 0-None Present CIWA-Ar Total Score: 4 BHS Progress Note (SOAP) Subjective: c/o anxiety and sweats. Objective: 07/19/19 12:41 Vital Signs 07/19/19 06:00 Temperature 97.7 F Pulse Rate 66 Respiratory 18 Rate Blood Pressure 154/86 Lab Results Sodium 140 mmol/L (136-145) 07/18/19 09:00 Potassium 3.6 mmol/L (3.5-5.1) 07/18/19 09:00 Chloride 105 mmol/L (98-107) 07/18/19 09:00 Carbon Dioxide 26 mmol/L (21-32) 07/18/19 09:00 Anion Gap 9 MMOL/L (8-16) 07/18/19 09:00 BUN 14.3 mg/dL (7-18) 07/18/19 09:00 Creatinine 0.9 mg/dL (0.55-1.3) 07/18/19 09:00 Random Glucose 119 mg/dL (74-106) H 07/18/19 09:00 Calcium 9.5 mg/dL (8.5-10.1) 07/18/19 09:00 Labs noted. Assessment: 07/19/19 12:41 AOX3, in no acute respiratory distress. Full ROM, ambulating in the unit. mild withdrawal symptoms. For d/c tomorrow. Plan: continue detox. D/C in AM.
[2019-07-19] MEDS: GEMFIBROZIL 600 MG TABLET (FP) PO SCH (17:07)
[2019-07-19] MEDS: THIAMINE HCL 100 MG TABLET (FP) PO SCH (22:41)
[2019-07-20] MEDS ORDERED: chlordiazePOXIDE HCL 10 MG CAPSULE PO ONE (05:00)
[2019-07-20] MEDS: GABAPENTIN 300 MG CAPSULE (FP) PO SCH (06:07)
[2019-07-20] MEDS: metFORMIN HCL 500 MG TABLET (FP) PO SCH (06:07)
[2019-07-20 06:22] VITALS: BP 133/80; PULSE 65; TEMP 96.8
[2019-07-20] MEDS: GEMFIBROZIL 600 MG TABLET (FP) PO SCH (07:09)
--- NOTE | 2019-07-20 14:06 | PN ---
[facility] CIWA - CIWA Score Nausea/Vomitin-No Nausea/No Vomiting Muscle Tremors: 1-None Visible, but [place] Anxiety: 0-No Anxiety, at Ease Agitation: 0-Normal Activity Paroxysmal Sweats: No Perspiration Orientation: 0-Oriented Tacttile Disturbances: 0-None Auditory Disturbances: 0-None Visual Disturbances: 0-None Headache: 0-None Present CIWA-Ar Total Score: 1 S Progress Note (SOAP) Subjective: 07/20/19 14:04 no complaints offered Objective: A & O x3 no acute distress noted Vital Signs Temperature 96.8 F L 07/20/19 06:00 Pulse Rate 65 07/20/19 06:00 Respiratory Rate 20 07/20/19 06:00 Blood Pressure 133/80 07/20/19 06:00 O2 Sat by Pulse Oximetry (%) Assessment: 07/20/19 14:06 detox completed Plan: for d/c
--- NOTE | 2019-07-20 14:12 | DS ---
[facility] Detox Discharge Summary Admission Date: 07/16/19 Discharge Date: 07/20/19 - History Additional Comments: Pt for d/c s/p successful completion of detox. In no acute distress, denies QUEZADA, CP, dizziness or any discomfort Ambulates steadily, no s/s of hypo/hyperglycemia noted States he will return tomorrow for Rehab at [facility]. Declines med refills, states "I still gat enough medication downstairs in my belongings". - Physical Exam Results Vital Signs: Vital Signs Temperature 96.8 F L 07/20/19 06:00 Pulse Rate 65 07/20/19 06:00 Respiratory Rate 20 07/20/19 06:00 Blood Pressure 133/80 07/20/19 06:00 O2 Sat by Pulse Oximetry (%) - Treatment Hospital Course: Detox Protocol Followed, Detoxed Safely, Responded well, Discharged Condition Good - Medication Discharge Medications: Ambulatory Orders Gemfibrozil 600 mg PO BID 05/27/19 Lisinopril [Prinivil -] 40 mg PO DAILY 05/27/19 Folic Acid 1 tab PO DAILY 07/13/19 Gabapentin [Neurontin] 300 mg PO TID 07/13/19 Aspirin [ASA -] 81 mg PO DAILY #30 tab.chew 07/19/19 Atenolol [Tenormin -] 100 mg PO DAILY 14 Days #14 tablet 07/19/19 levETIRAcetam [Keppra -] 500 mg PO BID #60 tablet 07/19/19 metFORMIN HCL [Glucophage -] 1,000 mg PO BID@0700,1630 #60 tablet 07/19/19 - Diagnosis (1) Alcohol-induced sleep disorder Status: Acute (2) Insomnia Status: Acute (3) Withdrawal symptoms, alcohol Status: Acute Qualifiers: Complication of substance-induced condition: with unspecified complication Qualified Code(s): F10.239 - Alcohol dependence with withdrawal, unspecified (4) Alcohol dependence with uncomplicated withdrawal Status: Chronic (5) Anemia Status: Chronic Qualifiers: Anemia type: iron deficiency Iron deficiency anemia type: unspecified iron deficiency Qualified Code(s): D50.9 - Iron deficiency anemia, unspecified (6) DM2 (diabetes mellitus, type 2) Status: Chronic Qualifiers: (7) Depressive disorder Status: Chronic (8) Diabetes mellitus treated with oral medication Status: Chronic (9) Essential (primary) hypertension Status: Chronic (10) Hx of coronary artery disease Status: Chronic (11) Hypertension Status: Chronic Qualifiers: Hypertension type: essential hypertension Qualified Code(s): I10 - Essential (primary) hypertension (12) Obesity (BMI 30-39.9) Status: Chronic (13) Seizure disorder Status: Chronic (14) 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
== END 2019-07-20 08:40 | disposition home or self-care (01) | DRG 775 ==
LOC: YASAS 11:57 → Y6N 13:49
PROVIDERS: ADMIT Surgery; ATTEND Surgery
PROC: HZ2ZZZZ Detoxification Services for Substance Abuse Treatment (ICD-10-PCS; principal; 2019-07-16)
DX: F10.230 Alcohol dependence with withdrawal, uncomplicated (principal); F10.282 Alcohol dependence with alcohol-induced sleep disorder; F10.24 Alcohol dependence with alcohol-induced mood disorder; F34.1 Dysthymic disorder; I25.10 Atherosclerotic heart disease of native coronary artery without angina pectoris; I10 Essential (primary) hypertension; E78.00 Pure hypercholesterolemia, unspecified; E11.9 Type 2 diabetes mellitus without complications; Z79.84 Long term (current) use of oral hypoglycemic drugs; G40.909 Epilepsy, unspecified, not intractable, without status epilepticus; D50.9 Iron deficiency anemia, unspecified; R76.11 Nonspecific reaction to tuberculin skin test without active tuberculosis; R29.6 Repeated falls; E66.9 Obesity, unspecified; Z68.30 Body mass index [BMI] 30.0-30.9, adult; Z59.0 Homelessness; Z88.8 Allergy status to other drugs, medicaments and biological substances; Z90.5 Acquired absence of kidney
CPT/HCPCS: 36415; 80053; 82962

== ENCOUNTER 2019-08-11 13:45 | Inpatient (IN) | payer OTHER ==
[2019-08-11 20:06] VITALS: BMI 32.1
--- NOTE | 2019-08-11 20:56 | HP ---
CIWA Score Nausea/Vomitin-Mild Nausea/No Vomiting Muscle Tremors: 3 Anxiety: 2 Agitation: 2 Paroxysmal Sweats: 1-Minimal Palms Moist Orientation: 1-Uncertain about Date Tacttile Disturbances: 0-None Auditory Disturbances: 1-Very Mild Visual Disturbances: 0-None Headache: 1-Very Mild CIWA-Ar Total Score: 12 - Admission Criteria OASAS Guidelines: Admission for Medically Managed Detox: Requires at least one of the followin. CIWA greater than 12 2. Seizures within the past 24 hours 3. Delirium tremens within the past 24 hours 4. Hallucinations within the past 24 hours 5. Acute intervention needed for co occurring medical disorder 6. Acute intervention needed for co occurring psychiatric disorder 7. Severe withdrawal that cannot be handled at a lower level of care (continued vomiting, continued diarrhea, abnormal vital signs) requiring intravenous medication and/or fluids 8. Patient presents the following: CIWA greater than 12 Admission Criteria Met: Admission criteria met Admitting History and Physical - Smoking History Smoking history: Never smoked Have you smoked in the past 12 months: No Aproximately how many cigarettes per day: 1 If you are a former smoker, when did you quit?: at age 19 - Alcohol/Substance Use Hx Alcohol Use: Yes (daily) Number of Drinks Daily: 5 (hard liquor) Date of Last Use: 07/14/19 - Social History ADL: Independent 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 History of Recent Travel: No Admission ROS [facility] Chief Complaint: alcohol detox Allergies/Adverse Reactions: Allergies Allergy/AdvReac Type Severity Reaction Status Date / Time RASHAD Inhibitors Allergy Severe Swelling Verified 08/11/19 20:07 lisinopril Allergy Severe Swelling Verified 08/11/19 20:07 History of Present Illness: 54 year old black male with history of alcohol dependence. Pt was at [facility] yesterday and brought here today for detox. Pt was last here for detox about a month ago. Had a seizure and was transferred to [facility] and came back here to complete detox. Says he relapsed as soon as he left here and is drinking too much and needs help. Says he is homeless in [place]. Sleeps on the streets. Does not take any medications. Pt would like to restart Gemfibrozil, metformin and keppra. Pt states he does not have high BP if he does not drink and does not want to be on BP meds PMH: Patient has HTN, Seizure Disorder, Hypercholesterolemia, NIDDM. AUTUMN- 0.189 Utox-BZO alcohol- drinks all day long- vodka. h/o seizures in the past. DUR- no controlled substances - Ebola screening Have you traveled outside of the country in the last 21 days: No Have you had contact with anyone from an Ebola affected area: No Do you have a fever: No - Review of Systems Constitutional: No Symptoms Reported EENT: reports: No Symptoms Reported Respiratory: reports: No Symptoms reported Cardiac: reports: No Symptoms Reported GI: reports: No Symptoms Reported : reports: No Symptoms Reported Musculoskeletal: reports: No Symptoms Reported Integumentary: reports: No Symptoms Reported Neuro: reports: No Symptoms reported Endocrine: reports: No Symptoms Reported Hematology: reports: No Symptoms Reported Psychiatric: reports: No Sypmtoms Reported Other Systems: Reviewed and Negative Patient History - Patient Medical History Hx Anemia: No Hx Asthma: No Hx Chronic Obstructive Pulmonary Disease (COPD): No Hx Cancer: No Hx Cardiac Disorders: No Hx Congestive Heart Failure: No Hx Hypertension: Yes Hx Hypercholesterolemia: Yes (Gemfibra) Hx Pacemaker: No HX Cerebrovascular Accident: No Hx Seizures: Yes (etoh related seizures last 07/14/19) Hx Dementia: No Hx Diabetes: Yes (Type II BGM 220mg/dl) Hx Gastrointestinal Disorders: No Hx Liver Disease: No Hx Genitourinary Disorders: No Hx Sexually Transmitted Disorders: No Hx Renal Disease (ESRD): No Hx Thyroid Disease: No Hx Human Immunodeficiency Virus (HIV): No (Negative 2018 in 09/01) Hx Hepatitis C: No Hx Depression: No Hx Suicide Attempt: No Hx Bipolar Disorder: No Hx Schizophrenia: No - Patient Surgical History Past Surgical History: Yes Hx Neurologic Surgery: No Hx Cataract Extraction: No Hx Cardiac Surgery: No Hx Lung Surgery: No Hx Breast Surgery: No Hx Breast Biopsy: No Hx Abdominal Surgery: No Hx Appendectomy: No Hx Cholecystectomy: No Hx Genitourinary Surgery: Yes (L kidney stone removed 2015) Hx Section: No Hx Orthopedic Surgery: No Other Surgical History: left nephrectomy 2016 Anesthesia Reaction: No - PPD History Results: cxray(-)07/14/19 - Smoking Cessation Smoking history: Never smoked Have you smoked in the past 12 months: No Aproximately how many cigarettes per day: 0 If you are a former smoker, when did you quit?: at age 19 Cigars Per Day: 0 Hx Chewing Tobacco Use: No Initiated information on smoking cessation: No - Substances abused Alcohol Substance route: Oral Frequency: Daily Amount used: 1 PINT VODKA + 2PACK BEER Age of first use: 18 Date of last use: 08/11/19 Admission Physical Exam BHS - Vital Signs Vital Signs: Vital Signs - 24 hr 08/11/19 20:01 Temperature 98.5 F Pulse Rate 110 H Respiratory 18 Rate Blood Pressure 155/98 - Physical General Appearance: Yes: Disheveled, Intoxicated HEENTM: Yes: Within Normal Limits, Other (puffy face) Respiratory: Yes: Within Normal Limits, Lungs Clear Neck: Yes: Within Normal Limits Cardiology: Yes: Within Normal Limits, Regular Rhythm, Regular Rate Abdominal: Yes: Within Normal Limits, Normal Bowel Sounds, Protuberent Genitourinary: Yes: Within Normal Limits Back: Yes: Within Normal Limits, Normal Inspection Musculoskeletal: Yes: Within Normal Limits, full range of Motion Extremities: Yes: Within Normal Limits, Other (a few superficial scrapes) Neurological: Yes: Within Normal Limits Integumentary: Yes: Within Normal Limits Lymphatic: Yes: Within Normal Limits - Diagnostic (1) Alcohol dependence with uncomplicated withdrawal Current Visit: No Status: Chronic (2) Hx of coronary artery disease Current Visit: No Status: Chronic (3) Hyperglycemia Current Visit: No Status: Chronic (4) Hyperglycemia due to type 2 diabetes mellitus Current Visit: No Status: Chronic Breathalyzer - Breathalyzer Breathalyzer: 0.174 Urine Drug Screen - Test Device Lot number: [id number] Expiration date: 03/13/21 - Control Is test valid?: Yes - Results Drug screen NEGATIVE: No Urine drug screen results: BZO-Benzodiazepines Inpatient Rehab Admission - Rehab Decision to Admit Inpatient rehab admission?: No
[2019-08-11] MEDS ORDERED: MAGNESIUM CITRATE 300 ML BOTTLE PO PRN (21:16)
[2019-08-11] MEDS ORDERED: MENTHOL/PHENOL 1 EACH UD MM PRN (21:16)
[2019-08-11] MEDS ORDERED: MELATONIN 5 MG TABLETS PO PRN (21:16)
[2019-08-11] MEDS ORDERED: METHOCARBAMOL 500 MG TABLET PO PRN (21:16)
[2019-08-11] MEDS ORDERED: BISMUTH SUBSALICYLATE 524 MG/30 ML UD PO PRN (21:16)
[2019-08-11] MEDS ORDERED: ONDANSETRON *ODT* 4 MG TABLET SL PRN (21:16)
[2019-08-11] MEDS ORDERED: hydrOXYzine PAMOATE 25 MG CAPSULE (FP) PO PRN (21:16)
[2019-08-11] MEDS ORDERED: chlordiazePOXIDE HCL 25 MG CAPSULE PO PRN (21:16)
[2019-08-11] MEDS ORDERED: MAG HYDROX/AL HYDROX/SIMETH 30 ML UNIT-DOSE CUP PO PRN (21:16)
[2019-08-11] MEDS ORDERED: IBUPROFEN 400 MG TABLET (FP) PO PRN (21:16)
[2019-08-11] MEDS ORDERED: MAGNESIUM HYDROX 2400MG/30ML ORAL SUSPENSION 30 ML CUP PO PRN (21:16)
[2019-08-11] MEDS ORDERED: LORazepam 1 MG TABLET PO PRN (21:19)
--- NOTE | 2019-08-11 22:15 | PN ---
BHS Progress Note Note: Hx PPD +. 07/14/19 - neg CXR
[2019-08-11] MEDS: LORazepam 2 MG TABLET PO SCH (22:47)
[2019-08-11] MEDS: levETIRAcetam 500 MG TABLET (FP) PO SCH (22:47)
[2019-08-11] MEDS: THIAMINE HCL 100 MG TABLET (FP) PO SCH (22:47)
[2019-08-11] MEDS ORDERED: chlordiazePOXIDE HCL 25 MG CAPSULE PO SCH (23:00)
[2019-08-12] MEDS: LORazepam 2 MG TABLET PO SCH ×4 (05:47→22:07)
[2019-08-12] MEDS: metFORMIN HCL 500 MG TABLET (FP) PO SCH ×2 (06:59→17:02)
[2019-08-12 09:57] LABS: HEMATOCRIT 33.5 % (35.4-49); HEMOGLOBIN 11.3 GM/dL (11.7-16.9); MCH 31.2 pg (25.7-33.7); MCHC 33.7 g/dl (32.0-35.9); MEAN CELL VOLUME 92.5 fl (80-96); MEAN PLT VOLUME 7.1 fl (7.5-11.1); PLATELET COUNT 283 K/MM3 (134-434); RBC 3.62 M/mm3 (4.00-5.60); RDW 16.5 % (11.9-15.9); WHITE BLOOD COUNT 2.7 K/mm3 (4.0-10.0)
[2019-08-12 10:44] LABS: ALBUMIN 3.2 g/dl (3.4-5.0); ALK PHOS 103 U/L (45-117); ANION GAP 10 MMOL/L (8-16); BILIRUBIN,TOTAL 0.2 mg/dL (0.2-1); BLOOD UREA NITROGEN 22.1 mg/dL (7-18); CHLORIDE 106 mmol/L (98-107); CO2 25 mmol/L (21-32); CREATININE 0.7 mg/dL (0.55-1.3); GLUCOSE,RANDOM 102 mg/dL (74-106); POTASSIUM 3.8 mmol/L (3.5-5.1); SGOT/AST 75 U/L (15-37); SODIUM 141 mmol/L (136-145); TOT PROT 7.4 g/dl (6.4-8.2)
[2019-08-12] MEDS: levETIRAcetam 500 MG TABLET (FP) PO SCH ×2 (10:47→22:07)
[2019-08-12] MEDS: PRENATAL VITAMINS W/ FOLIC ACID TABLET (FP) PO SCH (10:47)
--- NOTE | 2019-08-12 12:33 | PN ---
S CIWA - CIWA Score Nausea/Vomitin-Mild Nausea/No Vomiting Muscle Tremors: 4-Moderate,w/Arms Extend Anxiety: 3 Agitation: 2 Paroxysmal Sweats: 1-Minimal Palms Moist Orientation: 0-Oriented Tacttile Disturbances: 1-Very Mild Itch/Numbness Auditory Disturbances: 0-None Visual Disturbances: 0-None Headache: 1-Very Mild CIWA-Ar Total Score: 13 BHS Progress Note (SOAP) Subjective: 54 years old male admitted on 08/11 for alcohol withdrawal sx management treated with librium detox regimen patient tolerate well ambulating on hallway social with peers in day room Objective: 08/12/19 12:31 Vital Signs Temperature 97.5 F L 08/12/19 09:16 Pulse Rate 105 H 08/12/19 09:16 Respiratory Rate 18 08/12/19 09:16 Blood Pressure 159/96 08/12/19 09:16 O2 Sat by Pulse Oximetry (%) Laboratory Last Values WBC 2.7 K/mm3 (4.0-10.0) L 08/12/19 08:15 RBC 3.62 M/mm3 (4.00-5.60) L 08/12/19 08:15 Hgb 11.3 GM/dL (11.7-16.9) L 08/12/19 08:15 Hct 33.5 % (35.4-49) L 08/12/19 08:15 MCV 92.5 fl (80-96) 08/12/19 08:15 MCH 31.2 pg (25.7-33.7) 08/12/19 08:15 MCHC 33.7 g/dl (32.0-35.9) 08/12/19 08:15 RDW 16.5 % (11.9-15.9) H 08/12/19 08:15 Plt Count 283 K/MM3 (134-434) D 08/12/19 08:15 MPV 7.1 fl (7.5-11.1) L 08/12/19 08:15 Sodium 141 mmol/L (136-145) 08/12/19 08:15 Potassium 3.8 mmol/L (3.5-5.1) 08/12/19 08:15 Chloride 106 mmol/L (98-107) 08/12/19 08:15 Carbon Dioxide 25 mmol/L (21-32) 08/12/19 08:15 Anion Gap 10 MMOL/L (8-16) 08/12/19 08:15 BUN 22.1 mg/dL (7-18) H 08/12/19 08:15 Creatinine 0.7 mg/dL (0.55-1.3) 08/12/19 08:15 Est GFR (CKD-EPI)AfAm 123.13 08/12/19 08:15 Est GFR (CKD-EPI)NonAf 106.24 08/12/19 08:15 POC Glucometer 96 UNITS (80-120) 08/12/19 05:46 Random Glucose 102 mg/dL (74-106) 08/12/19 08:15 Calcium 8.0 mg/dL (8.5-10.1) L 08/12/19 08:15 Total Bilirubin 0.2 mg/dL (0.2-1) 08/12/19 08:15 AST 75 U/L (15-37) H 08/12/19 08:15 ALT TNP 08/12/19 08:15 Alkaline Phosphatase 103 U/L (45-117) 08/12/19 08:15 Total Protein 7.4 g/dl (6.4-8.2) 08/12/19 08:15 Albumin 3.2 g/dl (3.4-5.0) L 08/12/19 08:15 RPR Titer Nonreactive (NONREACTIVE) 08/12/19 08:15 lab noted 08/12/19 12:32 08/12/19 12:34 low wbc repeat cbc Assessment: 08/12/19 12:34 alcohol withdrawal sx Plan: continue librium detox regimen
[2019-08-12] MEDS: GEMFIBROZIL 600 MG TABLET (FP) PO SCH ×2 (14:45→22:07)
[2019-08-12] MEDS: THIAMINE HCL 100 MG TABLET (FP) PO SCH (22:07)
[2019-08-13] MEDS ORDERED: chlordiazePOXIDE HCL 25 MG CAPSULE PO SCH (05:00)
[2019-08-13] MEDS: LORazepam 1 MG TABLET PO SCH ×4 (05:36→22:00)
[2019-08-13] MEDS: metFORMIN HCL 500 MG TABLET (FP) PO SCH ×2 (08:01→17:40)
[2019-08-13 10:00] LABS: HEMATOCRIT 37.3 % (35.4-49); HEMOGLOBIN 12.3 GM/dL (11.7-16.9); MCH 30.2 pg (25.7-33.7); MEAN CELL VOLUME 91.6 fl (80-96); PLATELET COUNT 381 K/MM3 (134-434); RBC 4.07 M/mm3 (4.00-5.60); RDW 16.1 % (11.9-15.9); WHITE BLOOD COUNT 4.4 K/mm3 (4.0-10.0)
[2019-08-13] MEDS: GEMFIBROZIL 600 MG TABLET (FP) PO SCH ×2 (10:03→22:00)
[2019-08-13] MEDS: levETIRAcetam 500 MG TABLET (FP) PO SCH ×2 (10:03→22:00)
[2019-08-13] MEDS: PRENATAL VITAMINS W/ FOLIC ACID TABLET (FP) PO SCH (10:03)
--- NOTE | 2019-08-13 11:54 | PN ---
[facility] CIWA - CIWA Score Nausea/Vomitin-No Nausea/No Vomiting Muscle Tremors: 2 Anxiety: 3 Agitation: 2 Paroxysmal Sweats: 1-Minimal Palms Moist Orientation: 0-Oriented Tacttile Disturbances: 0-None Auditory Disturbances: 0-None Visual Disturbances: 0-None Headache: 1-Very Mild CIWA-Ar Total Score: 9 S Progress Note (SOAP) Subjective: 54 years old male admitted on 08/11/19 for alcohol withdrawal sx management treated with librium detox regimen repeat cbc normal wbc Objective: 08/13/19 11:54 Vital Signs Temperature 96.7 F L 08/13/19 09:13 Pulse Rate 91 H 08/13/19 09:13 Respiratory Rate 18 08/13/19 09:13 Blood Pressure 134/84 08/13/19 09:13 O2 Sat by Pulse Oximetry (%) Laboratory Last Values WBC 4.4 K/mm3 (4.0-10.0) 08/13/19 08:00 RBC 4.07 M/mm3 (4.00-5.60) 08/13/19 08:00 Hgb 12.3 GM/dL (11.7-16.9) 08/13/19 08:00 Hct 37.3 % (35.4-49) 08/13/19 08:00 MCV 91.6 fl (80-96) 08/13/19 08:00 MCH 30.2 pg (25.7-33.7) 08/13/19 08:00 MCHC 33.0 g/dl (32.0-35.9) 08/13/19 08:00 RDW 16.1 % (11.9-15.9) H 08/13/19 08:00 Plt Count 381 K/MM3 (134-434) D 08/13/19 08:00 MPV 7.0 fl (7.5-11.1) L 08/13/19 08:00 Sodium 141 mmol/L (136-145) 08/12/19 08:15 Potassium 3.8 mmol/L (3.5-5.1) 08/12/19 08:15 Chloride 106 mmol/L (98-107) 08/12/19 08:15 Carbon Dioxide 25 mmol/L (21-32) 08/12/19 08:15 Anion Gap 10 MMOL/L (8-16) 08/12/19 08:15 BUN 22.1 mg/dL (7-18) H 08/12/19 08:15 Creatinine 0.7 mg/dL (0.55-1.3) 08/12/19 08:15 Est GFR (CKD-EPI)AfAm 123.13 08/12/19 08:15 Est GFR (CKD-EPI)NonAf 106.24 08/12/19 08:15 POC Glucometer 167 UNITS (80-120) 08/13/19 05:34 Random Glucose 102 mg/dL (74-106) 08/12/19 08:15 Calcium 8.0 mg/dL (8.5-10.1) L 08/12/19 08:15 Total Bilirubin 0.2 mg/dL (0.2-1) 08/12/19 08:15 AST 75 U/L (15-37) H 08/12/19 08:15 ALT TNP 08/12/19 08:15 Alkaline Phosphatase 103 U/L (45-117) 08/12/19 08:15 Total Protein 7.4 g/dl (6.4-8.2) 08/12/19 08:15 Albumin 3.2 g/dl (3.4-5.0) L 08/12/19 08:15 RPR Titer Nonreactive (NONREACTIVE) 08/12/19 08:15 lab noted Assessment: 08/13/19 11:54 alcohol withdrawal sx Plan: continue librium detox regimen
[2019-08-13] MEDS ORDERED: AZITHROMYCIN 250 MG TABLET PO ONE (14:55)
[2019-08-13] MEDS: THIAMINE HCL 100 MG TABLET (FP) PO SCH (22:00)
[2019-08-14] MEDS ORDERED: LORazepam 0.5 MG TABLET PO PRN
[2019-08-14] MEDS ORDERED: chlordiazePOXIDE HCL 10 MG CAPSULE PO PRN
[2019-08-14] MEDS ORDERED: chlordiazePOXIDE HCL 10 MG CAPSULE PO SCH (05:00)
[2019-08-14] MEDS: LORazepam 0.5 MG TABLET PO SCH ×4 (06:10→22:01)
[2019-08-14] MEDS: metFORMIN HCL 500 MG TABLET (FP) PO SCH ×2 (06:11→17:12)
[2019-08-14] MEDS: PRENATAL VITAMINS W/ FOLIC ACID TABLET (FP) PO SCH (09:51)
[2019-08-14] MEDS: levETIRAcetam 500 MG TABLET (FP) PO SCH ×2 (09:51→22:01)
[2019-08-14] MEDS: GEMFIBROZIL 600 MG TABLET (FP) PO SCH ×2 (09:51→22:01)
[2019-08-14] MEDS ORDERED: AZITHROMYCIN 250 MG TABLET PO SCH (10:00)
--- NOTE | 2019-08-14 12:16 | PN ---
S CIWA - CIWA Score Nausea/Vomitin-No Nausea/No Vomiting Muscle Tremors: 2 Anxiety: 2 Agitation: 1-Slight > Activity Paroxysmal Sweats: No Perspiration Orientation: 0-Oriented Tacttile Disturbances: 0-None Auditory Disturbances: 0-None Visual Disturbances: 0-None Headache: 0-None Present CIWA-Ar Total Score: 5 BHS Progress Note (SOAP) Subjective: 54 years old male admitted on 08/11/19 for alcohol withdrawal sx management treated with ativan detox regimen patient tolerated well patient is going to be discharged on 08/15/19 aftercare at [facility] patient requests to leave the detox around 7 am tomorrow patient informed that hospital policy not to discharge from 6 pm to 8 am if medically cleared and condition suitable for 08/15/19 7 am discharged patient may possible been discharged on 08/15/19 around 7 am Objective: 08/14/19 12:15 Vital Signs Temperature 98.6 F 08/14/19 09:21 Pulse Rate 85 08/14/19 09:21 Respiratory Rate 18 08/14/19 09:21 Blood Pressure 131/73 08/14/19 09:21 O2 Sat by Pulse Oximetry (%) Laboratory Last Values WBC 4.4 K/mm3 (4.0-10.0) 08/13/19 08:00 RBC 4.07 M/mm3 (4.00-5.60) 08/13/19 08:00 Hgb 12.3 GM/dL (11.7-16.9) 08/13/19 08:00 Hct 37.3 % (35.4-49) 08/13/19 08:00 MCV 91.6 fl (80-96) 08/13/19 08:00 MCH 30.2 pg (25.7-33.7) 08/13/19 08:00 MCHC 33.0 g/dl (32.0-35.9) 08/13/19 08:00 RDW 16.1 % (11.9-15.9) H 08/13/19 08:00 Plt Count 381 K/MM3 (134-434) D 08/13/19 08:00 MPV 7.0 fl (7.5-11.1) L 08/13/19 08:00 Sodium 141 mmol/L (136-145) 08/12/19 08:15 Potassium 3.8 mmol/L (3.5-5.1) 08/12/19 08:15 Chloride 106 mmol/L (98-107) 08/12/19 08:15 Carbon Dioxide 25 mmol/L (21-32) 08/12/19 08:15 Anion Gap 10 MMOL/L (8-16) 08/12/19 08:15 BUN 22.1 mg/dL (7-18) H 08/12/19 08:15 Creatinine 0.7 mg/dL (0.55-1.3) 08/12/19 08:15 Est GFR (CKD-EPI)AfAm 123.13 08/12/19 08:15 Est GFR (CKD-EPI)NonAf 106.24 08/12/19 08:15 POC Glucometer 133 UNITS (80-120) 08/14/19 06:09 Random Glucose 102 mg/dL (74-106) 08/12/19 08:15 Calcium 8.0 mg/dL (8.5-10.1) L 08/12/19 08:15 Total Bilirubin 0.2 mg/dL (0.2-1) 08/12/19 08:15 AST 75 U/L (15-37) H 08/12/19 08:15 ALT TNP 08/12/19 08:15 Alkaline Phosphatase 103 U/L (45-117) 08/12/19 08:15 Total Protein 7.4 g/dl (6.4-8.2) 08/12/19 08:15 Albumin 3.2 g/dl (3.4-5.0) L 08/12/19 08:15 RPR Titer Nonreactive (NONREACTIVE) 08/12/19 08:15 lab noted Assessment: 08/14/19 12:15 alcohol withdrawal sx Plan: continue ativan detox regimen
[2019-08-14] MEDS: THIAMINE HCL 100 MG TABLET (FP) PO SCH (22:01)
[2019-08-15] MEDS ORDERED: chlordiazePOXIDE HCL 10 MG CAPSULE PO SCH (05:00)
[2019-08-15] MEDS ORDERED: LORazepam 0.5 MG TABLET PO ONE (05:00)
[2019-08-15] MEDS: metFORMIN HCL 500 MG TABLET (FP) PO SCH (06:13)
[2019-08-15 06:27] VITALS: PULSE 81; TEMP 97.4
[2019-08-15 07:10] VITALS: BP 145/89
--- NOTE | 2019-08-15 09:43 | DS ---
[facility] Detox Discharge Summary Admission Date: 08/11/19 Discharge Date: 08/15/19 - History Present History: Alcohol Dependence - Physical Exam Results Vital Signs: Vital Signs Temperature 97.4 F L 08/15/19 06:27 Pulse Rate 81 08/15/19 06:27 Respiratory Rate 18 08/15/19 06:27 Blood Pressure 145/89 08/15/19 07:09 O2 Sat by Pulse Oximetry (%) Pertinent Admission Physical Exam Findings: Vital Signs Temperature 97.4 F L 08/15/19 06:27 Pulse Rate 81 08/15/19 06:27 Respiratory Rate 18 08/15/19 06:27 Blood Pressure 145/89 08/15/19 07:09 O2 Sat by Pulse Oximetry (%) Laboratory Last Values WBC 4.4 K/mm3 (4.0-10.0) 08/13/19 08:00 RBC 4.07 M/mm3 (4.00-5.60) 08/13/19 08:00 Hgb 12.3 GM/dL (11.7-16.9) 08/13/19 08:00 Hct 37.3 % (35.4-49) 08/13/19 08:00 MCV 91.6 fl (80-96) 08/13/19 08:00 MCH 30.2 pg (25.7-33.7) 08/13/19 08:00 MCHC 33.0 g/dl (32.0-35.9) 08/13/19 08:00 RDW 16.1 % (11.9-15.9) H 08/13/19 08:00 Plt Count 381 K/MM3 (134-434) D 08/13/19 08:00 MPV 7.0 fl (7.5-11.1) L 08/13/19 08:00 Sodium 141 mmol/L (136-145) 08/12/19 08:15 Potassium 3.8 mmol/L (3.5-5.1) 08/12/19 08:15 Chloride 106 mmol/L (98-107) 08/12/19 08:15 Carbon Dioxide 25 mmol/L (21-32) 08/12/19 08:15 Anion Gap 10 MMOL/L (8-16) 08/12/19 08:15 BUN 22.1 mg/dL (7-18) H 08/12/19 08:15 Creatinine 0.7 mg/dL (0.55-1.3) 08/12/19 08:15 Est GFR (CKD-EPI)AfAm 123.13 08/12/19 08:15 Est GFR (CKD-EPI)NonAf 106.24 08/12/19 08:15 POC Glucometer 132 UNITS (80-120) 08/15/19 05:40 Random Glucose 102 mg/dL (74-106) 08/12/19 08:15 Calcium 8.0 mg/dL (8.5-10.1) L 08/12/19 08:15 Total Bilirubin 0.2 mg/dL (0.2-1) 08/12/19 08:15 AST 75 U/L (15-37) H 08/12/19 08:15 ALT TNP 08/12/19 08:15 Alkaline Phosphatase 103 U/L (45-117) 08/12/19 08:15 Total Protein 7.4 g/dl (6.4-8.2) 08/12/19 08:15 Albumin 3.2 g/dl (3.4-5.0) L 08/12/19 08:15 RPR Titer Nonreactive (NONREACTIVE) 08/12/19 08:15 - Treatment Hospital Course: Detox Protocol Followed, Detoxed Safely, Responded well, Discharged Condition Good, Rehab Referral Accepted Patient has Accepted a Rehab Referral to: [facility] - Medication Discharge Medications: Ambulatory Orders Gemfibrozil 600 mg PO BID 05/27/19 Lisinopril [Prinivil -] 40 mg PO DAILY 05/27/19 Folic Acid 1 tab PO DAILY 07/13/19 Gabapentin [Neurontin] 300 mg PO TID 07/13/19 Aspirin [ASA -] 81 mg PO DAILY #30 tab.chew 07/19/19 Atenolol [Tenormin -] 100 mg PO DAILY 14 Days #14 tablet 07/19/19 levETIRAcetam [Keppra -] 500 mg PO BID #60 tablet 07/19/19 metFORMIN HCL [Glucophage -] 1,000 mg PO BID@0700,1630 #60 tablet 07/19/19 - Diagnosis (1) Alcohol dependence with uncomplicated withdrawal Status: Chronic (2) Anemia Status: Chronic Qualifiers: Anemia type: iron deficiency Iron deficiency anemia type: unspecified iron deficiency Qualified Code(s): D50.9 - Iron deficiency anemia, unspecified (3) DM2 (diabetes mellitus, type 2) Status: Chronic Qualifiers: (4) Essential (primary) hypertension Status: Chronic (5) Hx of coronary artery disease Status: Chronic (6) Substance induced mood disorder Status: Suspected (7) PPD positive, treated Status: Resolved - AMA Did Patient Leave Against Medical Advice: No
[2019-08-16] MEDS ORDERED: chlordiazePOXIDE HCL 10 MG CAPSULE PO ONE (05:00)
== END 2019-08-15 07:11 | disposition home or self-care (01) | DRG 775 ==
LOC: YASAS 13:45 → Y3N 21:46
PROVIDERS: ADMIT Allergy & Immunology; ATTEND Allergy & Immunology
PROC: HZ2ZZZZ Detoxification Services for Substance Abuse Treatment (ICD-10-PCS; principal; 2019-08-11)
DX: F10.230 Alcohol dependence with withdrawal, uncomplicated (principal); F19.24 Other psychoactive substance dependence with psychoactive substance-induced mood disorder; D50.9 Iron deficiency anemia, unspecified; E78.00 Pure hypercholesterolemia, unspecified; E11.65 Type 2 diabetes mellitus with hyperglycemia; Z79.84 Long term (current) use of oral hypoglycemic drugs; I25.10 Atherosclerotic heart disease of native coronary artery without angina pectoris; I10 Essential (primary) hypertension; I25.2 Old myocardial infarction; R76.11 Nonspecific reaction to tuberculin skin test without active tuberculosis; Z88.8 Allergy status to other drugs, medicaments and biological substances; Z59.0 Homelessness
CPT/HCPCS: 36415; 80053; 82962; 85027; 86593

== ENCOUNTER 2019-11-14 08:05 | Inpatient (IN) | payer OTHER ==
[2019-11-14 09:11] VITALS: BMI 32.6
[2019-11-14] MEDS ORDERED: PNEUMOC 13-VAL CONJ-DIP CRM/PF 0.5 ML DISP.SYRIN IM ONE (09:31)
--- NOTE | 2019-11-14 09:50 | HP ---
CIWA Score Nausea/Vomitin-Mild Nausea/No Vomiting Muscle Tremors: 3 Anxiety: 2 Agitation: 2 Paroxysmal Sweats: 2 Orientation: 1-Uncertain about Date Tacttile Disturbances: 1-Very Mild Itch/Numbness Auditory Disturbances: 0-None Visual Disturbances: 0-None Headache: 0-None Present CIWA-Ar Total Score: 12 - Admission Criteria OASAS Guidelines: Admission for Medically Managed Detox: Requires at least one of the followin. CIWA greater than 12 2. Seizures within the past 24 hours 3. Delirium tremens within the past 24 hours 4. Hallucinations within the past 24 hours 5. Acute intervention needed for co occurring medical disorder 6. Acute intervention needed for co occurring psychiatric disorder 7. Severe withdrawal that cannot be handled at a lower level of care (continued vomiting, continued diarrhea, abnormal vital signs) requiring intravenous medication and/or fluids 8. Admitting History and Physical - Admission Chief Complaint: Mr. Machado presents for admission for detox from alcohol. History of Present Illness: Mr. Machado is a 54 yo gentleman with a PMH of NIDDM, KS, seizures and hyperlipidemia who presents to [facility] requesting admission to detox for alcohol use disorder. He drinks one pint of Vodka daily in addition to 3 x 24 ounces of beer daily. He began drinking at the age of 18 y. His last drink was yesterday. He has had seizures in the past, the most recent being in July of 2019. He states that he has had blackouts while drinking, perhaps 5 years ago. Tobacco: snuff Cocaine: last use in 2006 Last evening the patient was asleep on the floor of the waiting room. Per the overnight provider he was treated with Narcan and sent out via ambulance. He was taken to the ED at [facility] and released. Details of the ED visit are unknown. History Source: Patient Limitations to Obtaining History: No Limitations - Past Medical History Cardiovascular: Yes: [place] Hepatobiliary: Yes: Other (Pt states elevated LFTs) Psych: Yes: Anxiety, Panic Musculoskeletal: Yes: Chronic low back pain, Other (states he fell a few months ago and, since, has had low back pain) Endocrine: Yes: Diabetes Mellitus - Past Surgical History Additional Past Surgical History: Kidney stone - Smoking History Smoking history: Never smoked Have you smoked in the past 12 months: No Aproximately how many cigarettes per day: 0 (daily snuff use) If you are a former smoker, when did you quit?: at age 19 - Alcohol/Substance Use Hx Alcohol Use: Yes (daily) Number of Drinks Daily: 16 (hard liquor, beer) History of Substance Use: reports: Cocaine (last used in 2006) Date of Last Use: 07/14/19 - Social History Usual Living Arrangement: Yes: Other (Homeless) Do you think of yourself as: Straight/Heterosexual ADL: Independent 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, 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 History of Recent Travel: No Admission ROS S - HPI Chief Complaint: Pt presents requesting admission for detox from alcohol Allergies/Adverse Reactions: Allergies Allergy/AdvReac Type Severity Reaction Status Date / Time RASHAD Inhibitors Allergy Severe Swelling Verified 11/14/19 08:58 lisinopril Allergy Severe Swelling Verified 11/14/19 08:58 Exam Limitations: No Limitations - Ebola screening Have you traveled outside of the country in the last 21 days: No Have you had contact with anyone from an Ebola affected area: No Have you been sick,other than usual withdrawal symptoms: No Do you have a fever: No - Review of Systems Constitutional: No Symptoms Reported EENT: reports: No Symptoms Reported Respiratory: reports: No Symptoms reported Cardiac: reports: No Symptoms Reported GI: reports: No Symptoms Reported : reports: No Symptoms Reported Musculoskeletal: reports: Back Pain Integumentary: reports: Dryness Neuro: reports: No Symptoms reported, Seizure, Other (last seizure documented in July) Endocrine: reports: No Symptoms Reported Hematology: reports: No Symptoms Reported Psychiatric: reports: Anxious Patient History - Patient Medical History Hx Anemia: No Hx Asthma: No Hx Chronic Obstructive Pulmonary Disease (COPD): No Hx Cancer: No Hx Cardiac Disorders: No Hx Congestive Heart Failure: No Hx Hypertension: Yes Hx Hypercholesterolemia: Yes (Gemfibra) Hx Pacemaker: No HX Cerebrovascular Accident: No Hx Seizures: Yes Hx Dementia: No Hx Diabetes: Yes (BGM 121 iN PWC) Hx Gastrointestinal Disorders: No Hx Liver Disease: No Hx Genitourinary Disorders: No Hx Sexually Transmitted Disorders: No Hx Renal Disease (ESRD): No Hx Thyroid Disease: No Hx Human Immunodeficiency Virus (HIV): No (Negative 2018 in 09/01) Hx Hepatitis C: No Hx Depression: No Hx Suicide Attempt: No Hx Bipolar Disorder: No Hx Schizophrenia: No - Patient Surgical History Past Surgical History: Yes Hx Neurologic Surgery: No Hx Cataract Extraction: No Hx Cardiac Surgery: No Hx Lung Surgery: No Hx Breast Surgery: No Hx Breast Biopsy: No Hx Abdominal Surgery: No Hx Appendectomy: No Hx Cholecystectomy: No Hx Genitourinary Surgery: Yes (L kidney stone removed 2015) Hx Section: No Hx Orthopedic Surgery: No Other Surgical History: left nephrectomy 2016 Anesthesia Reaction: No - PPD History Previous Implant?: Yes Documented Results: Positive w/o proof Implanted On Prior [facility] Admission?: No Results: cxray(-)07/14/19 - Reproductive History Patient is a Female of Child Bearing Age (11 -55 yrs old): No - Smoking Cessation Smoking history: Never smoked Have you smoked in the past 12 months: No Aproximately how many cigarettes per day: 0 If you are a former smoker, when did you quit?: at age 19 Cigars Per Day: 0 Hx Chewing Tobacco Use: No Initiated information on smoking cessation: No - Substance & Tx. History Hx Alcohol Use: Yes - Substances abused Alcohol Substance route: Oral Frequency: Daily Amount used: a pint of vodka daily, 3 x 24 ounce beer daily Age of first use: 18 Date of last use: 11/14/19 Admission Physical Exam [facility] - Vital Signs Vital Signs: Vital Signs - 24 hr 11/14/19 09:04 Temperature 97.7 F Pulse Rate 109 H Respiratory 20 Rate Blood Pressure 162/94 - Physical General Appearance: Yes: Within Normal Limits, Intoxicated HEENTM: Yes: EOMI, Hearing grossly Normal, Other (right lateral tongue laceration (pt states one month old)) Respiratory: Yes: Lungs Clear, Normal Breath Sounds Neck: Yes: Supple Breast: Yes: Breast Exam Deferred Cardiology: Yes: Regular Rate, S1, S2 Abdominal: Yes: Normal Bowel Sounds Genitourinary: Yes: Other (deferred) Back: Yes: Normal Inspection Extremities: Yes: Other (Left medial forearm skin breakdown with erythema, ~ 1 cm) 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 Multiple scars bilateral anterior leg, few scabs distal patella, small abrasion left suprascapular 4 mm) Lymphatic: Yes: Within Normal Limits Cleared for Admission S - Detox or Rehab B[facility] Level of Care: Medically Managed Detox Regimen/Protocol: Librium Screened but not Admitted - Documentation of Visit Screened but not Admitted: No Breathalyzer - Breathalyzer Breathalyzer: 0.158 (last drink ? today) Urine Drug Screen - Test Device Lot number: [id number] Expiration date: 09/08/21 - Control Is test valid?: Yes - Results Drug screen NEGATIVE: No Urine drug screen results: BZO-Benzodiazepines Inpatient Rehab Admission - Rehab Decision to Admit Inpatient rehab admission?: No
[2019-11-14] MEDS ORDERED: MENTHOL/PHENOL 1 EACH UD MM PRN (10:06)
[2019-11-14] MEDS ORDERED: MELATONIN 5 MG TABLETS PO PRN (10:06)
[2019-11-14] MEDS ORDERED: MAGNESIUM CITRATE 300 ML BOTTLE PO PRN (10:06)
[2019-11-14] MEDS ORDERED: BISMUTH SUBSALICYLATE 262 MG/15 ML BTL PO PRN (10:06)
[2019-11-14] MEDS ORDERED: hydrOXYzine PAMOATE 25 MG CAPSULE (FP) PO PRN (10:06)
[2019-11-14] MEDS ORDERED: IBUPROFEN 400 MG TABLET (FP) PO PRN (10:06)
[2019-11-14] MEDS ORDERED: METHOCARBAMOL 500 MG TABLET PO PRN (10:06)
[2019-11-14] MEDS ORDERED: ACETAMINOPHEN 325 MG TABLET (FP) PO PRN ×2 (10:06)
[2019-11-14] MEDS ORDERED: MAGNESIUM HYDROX 2400MG/30ML ORAL SUSPENSION 30 ML CUP PO PRN (10:06)
[2019-11-14] MEDS ORDERED: MAG HYDROX/AL HYDROX/SIMETH 30 ML UNIT-DOSE CUP PO PRN (10:06)
[2019-11-14] MEDS ORDERED: LORazepam 1 MG TABLET PO PRN (10:19)
[2019-11-14] MEDS ORDERED: PATIENT'S OWN MEDICATION (NON-FORMULARY) (Lisinopril [Prinivil -] 40 MG) PO SCH (10:30)
[2019-11-14] MEDS ORDERED: PNEUMOCOCCAL 23 VACCINE 0.5 ML VIAL IM ONE (12:15)
[2019-11-14] MEDS: LORazepam 2 MG TABLET PO SCH ×4 (12:21→22:27)
[2019-11-14] MEDS: levETIRAcetam 500 MG TABLET (FP) PO SCH ×2 (12:21→22:13)
[2019-11-14] MEDS: ASPIRIN 81 MG CHEWABLE TABLETS PO SCH (12:21)
[2019-11-14] MEDS: FOLIC ACID 1 MG TABLET (FP) PO SCH (12:21)
[2019-11-14] MEDS: ATENOLOL 50 MG TABLET (FP) PO SCH (12:21)
[2019-11-14] MEDS: GEMFIBROZIL 600 MG TABLET (FP) PO SCH ×2 (13:00→17:36)
[2019-11-14 16:49] LABS: HEMATOCRIT 29.7 % (35.4-49); HEMOGLOBIN 9.6 GM/dL (11.7-16.9); MCHC 32.5 g/dl (32.0-35.9); MEAN CELL VOLUME 95.6 fl (80-96); MEAN PLT VOLUME 6.6 fl (7.5-11.1); PLATELET COUNT 367 K/MM3 (134-434); RBC 3.11 M/mm3 (4.00-5.60); RDW 16.7 % (11.9-15.9); WHITE BLOOD COUNT 3.4 K/mm3 (4.0-10.0)
[2019-11-14 17:04] LABS: ALBUMIN 3.1 g/dl (3.4-5.0); BILIRUBIN,TOTAL 0.3 mg/dL (0.2-1); CREATININE 0.7 mg/dL (0.55-1.3); POTASSIUM 3.6 mmol/L (3.5-5.1); TOT PROT 6.9 g/dl (6.4-8.2)
[2019-11-14] MEDS: metFORMIN HCL 500 MG TABLET (FP) PO SCH (17:36)
[2019-11-14] MEDS: THIAMINE HCL 100 MG TABLET (FP) PO SCH (22:13)
[2019-11-15] MEDS: LORazepam 2 MG TABLET PO SCH ×4 (06:32→22:13)
[2019-11-15] MEDS: metFORMIN HCL 500 MG TABLET (FP) PO SCH ×2 (06:32→17:51)
[2019-11-15] MEDS: GEMFIBROZIL 600 MG TABLET (FP) PO SCH ×2 (06:32→17:51)
[2019-11-15] MEDS: FOLIC ACID 1 MG TABLET (FP) PO SCH (11:19)
[2019-11-15] MEDS: ATENOLOL 50 MG TABLET (FP) PO SCH (11:20)
[2019-11-15] MEDS: ASPIRIN 81 MG CHEWABLE TABLETS PO SCH (11:21)
[2019-11-15] MEDS: levETIRAcetam 500 MG TABLET (FP) PO SCH ×2 (11:21→22:13)
[2019-11-15] MEDS: PRENATAL VITAMINS W/ FOLIC ACID TABLET (FP) PO SCH (11:22)
--- NOTE | 2019-11-15 13:35 | PN ---
S CIWA - CIWA Score Nausea/Vomitin-No Nausea/No Vomiting Muscle Tremors: 2 Anxiety: 3 Agitation: 2 Paroxysmal Sweats: 1-Minimal Palms Moist Orientation: 0-Oriented Tacttile Disturbances: 0-None Auditory Disturbances: 0-None Visual Disturbances: 0-None Headache: 0-None Present CIWA-Ar Total Score: 8 BHS Progress Note (SOAP) Subjective: Reports decreased w/s-slight anxiety, slight tremors. Objective: 11/15/19 13:37 Vital Signs - 24 hr 11/14/19 11/14/19 11/14/19 14:02 17:40 21:36 Temperature 97.5 F L 98.4 F 98.2 F Pulse Rate 102 H 91 H 87 Respiratory 18 18 18 Rate Blood Pressure 160/94 155/94 156/99 11/15/19 11/15/19 11/15/19 00:30 07:06 11:28 Temperature 98.1 F 98.4 F Pulse Rate 74 85 Respiratory 18 18 18 Rate Blood Pressure 142/79 169/94 Laboratory Tests 11/14/19 11/14/19 11/14/19 10:30 10:30 10:30 WBC 3.4 L RBC 3.11 L Hgb 9.6 L Hct 29.7 L D MCV 95.6 MCH 31.0 MCHC 32.5 RDW 16.7 H Plt Count 367 MPV 6.6 L Sodium 143 Potassium 3.6 Chloride 109 H Carbon Dioxide 26 Anion Gap 8 BUN 12.0 Creatinine 0.7 Est GFR (CKD-EPI)AfAm 123.13 Est GFR (CKD-EPI)NonAf 106.24 POC Glucometer Random Glucose 91 Calcium 8.0 L Total Bilirubin 0.3 AST 108 H ALT 76 H Alkaline Phosphatase 111 Total Protein 6.9 Albumin 3.1 L RPR Titer Nonreactive 11/14/19 11/15/19 16:32 06:31 WBC RBC Hgb Hct MCV MCH MCHC RDW Plt Count MPV Sodium Potassium Chloride Carbon Dioxide Anion Gap BUN Creatinine Est GFR (CKD-EPI)AfAm Est GFR (CKD-EPI)NonAf POC Glucometer 108 105 Random Glucose Calcium Total Bilirubin AST ALT Alkaline Phosphatase Total Protein Albumin RPR Titer Alert o x 3 nad oob ambulating with steady gait to nursing station and around the unit. Assessment: 11/15/19 13:38 WOOD mild w/s Plan: cont detox maintain safety encourage po fluids
[2019-11-15] MEDS: THIAMINE HCL 100 MG TABLET (FP) PO SCH (22:13)
[2019-11-16] MEDS: LORazepam 1 MG TABLET PO SCH ×4 (05:56→22:13)
[2019-11-16] MEDS: metFORMIN HCL 500 MG TABLET (FP) PO SCH ×2 (06:13→18:01)
[2019-11-16] MEDS: GEMFIBROZIL 600 MG TABLET (FP) PO SCH ×2 (06:37→18:00)
[2019-11-16] MEDS: levETIRAcetam 500 MG TABLET (FP) PO SCH ×2 (10:14→22:13)
[2019-11-16] MEDS: FOLIC ACID 1 MG TABLET (FP) PO SCH (10:14)
[2019-11-16] MEDS: PRENATAL VITAMINS W/ FOLIC ACID TABLET (FP) PO SCH (10:14)
[2019-11-16] MEDS: ASPIRIN 81 MG CHEWABLE TABLETS PO SCH (10:14)
[2019-11-16] MEDS: ATENOLOL 50 MG TABLET (FP) PO SCH (10:14)
[2019-11-16] MEDS ORDERED: cloNIDine HCL 0.1 MG TABLET PO ONE (13:09)
--- NOTE | 2019-11-16 15:04 | PN ---
[facility] CIWA - CIWA Score Nausea/Vomitin-No Nausea/No Vomiting Muscle Tremors: 1-None Visible, but [place] Anxiety: 4-Mod. Anxious/Guarded Agitation: 2 Paroxysmal Sweats: 1-Minimal Palms Moist Orientation: 0-Oriented Tacttile Disturbances: 2-Mild Itch/Numbness/Burn Auditory Disturbances: 0-None Visual Disturbances: 0-None Headache: 0-None Present CIWA-Ar Total Score: 10 S Progress Note (SOAP) Subjective: Patient admitted for alcohol withdrawal symptoms. He c/o feeling irritable, anxious, has mild shakes, and headache. Objective: 11/16/19 14:59 Vital Signs Temperature 98.2 F 11/16/19 14:30 Pulse Rate 80 11/16/19 14:30 Respiratory Rate 18 11/16/19 14:30 Blood Pressure 164/85 11/16/19 14:30 O2 Sat by Pulse Oximetry (%) Laboratory Tests 11/14/19 11/14/19 11/14/19 10:30 10:30 10:30 WBC 3.4 L RBC 3.11 L Hgb 9.6 L Hct 29.7 L D MCV 95.6 MCH 31.0 MCHC 32.5 RDW 16.7 H Plt Count 367 MPV 6.6 L Sodium 143 Potassium 3.6 Chloride 109 H Carbon Dioxide 26 Anion Gap 8 BUN 12.0 Creatinine 0.7 Est GFR (CKD-EPI)AfAm 123.13 Est GFR (CKD-EPI)NonAf 106.24 POC Glucometer Random Glucose 91 Calcium 8.0 L Total Bilirubin 0.3 AST 108 H ALT 76 H Alkaline Phosphatase 111 Total Protein 6.9 Albumin 3.1 L RPR Titer Nonreactive 11/14/19 11/15/19 11/15/19 16:32 06:31 16:44 WBC RBC Hgb Hct MCV MCH MCHC RDW Plt Count MPV Sodium Potassium Chloride Carbon Dioxide Anion Gap BUN Creatinine Est GFR (CKD-EPI)AfAm Est GFR (CKD-EPI)NonAf POC Glucometer 108 105 176 Random Glucose Calcium Total Bilirubin AST ALT Alkaline Phosphatase Total Protein Albumin RPR Titer 11/16/19 05:54 WBC RBC Hgb Hct MCV MCH MCHC RDW Plt Count MPV Sodium Potassium Chloride Carbon Dioxide Anion Gap BUN Creatinine Est GFR (CKD-EPI)AfAm Est GFR (CKD-EPI)NonAf POC Glucometer 102 Random Glucose Calcium Total Bilirubin AST ALT Alkaline Phosphatase Total Protein Albumin RPR Titer alert and oriented x 3 skin warm and dry +perrla, eoms intact bl gi nd, nt ext mild tremors felt irritable, sleepy Assessment: 11/16/19 15:01 etoh withdrawal symptoms Plan: continue detox encourage oral fluids will order clonidine 0.1mg po x one dose for elevated bp continue to monitor
[2019-11-16] MEDS: THIAMINE HCL 100 MG TABLET (FP) PO SCH (22:13)
[2019-11-17] MEDS ORDERED: LORazepam 0.5 MG TABLET PO PRN
[2019-11-17] MEDS: LORazepam 0.5 MG TABLET PO SCH ×4 (05:27→22:16)
[2019-11-17] MEDS: metFORMIN HCL 500 MG TABLET (FP) PO SCH ×2 (07:32→17:29)
[2019-11-17] MEDS: GEMFIBROZIL 600 MG TABLET (FP) PO SCH ×2 (07:32→17:30)
[2019-11-17] MEDS: ASPIRIN 81 MG CHEWABLE TABLETS PO SCH (10:31)
[2019-11-17] MEDS: FOLIC ACID 1 MG TABLET (FP) PO SCH (10:32)
[2019-11-17] MEDS: levETIRAcetam 500 MG TABLET (FP) PO SCH ×2 (10:32→22:16)
[2019-11-17] MEDS: ATENOLOL 50 MG TABLET (FP) PO SCH (10:32)
[2019-11-17] MEDS: PRENATAL VITAMINS W/ FOLIC ACID TABLET (FP) PO SCH (10:32)
--- NOTE | 2019-11-17 11:25 | PN ---
S CIWA - CIWA Score Nausea/Vomitin-No Nausea/No Vomiting Muscle Tremors: 2 Anxiety: 1-Mildly Anxious Agitation: 1-Slight > Activity Paroxysmal Sweats: No Perspiration Orientation: 0-Oriented Tacttile Disturbances: 0-None Auditory Disturbances: 0-None Visual Disturbances: 0-None Headache: 0-None Present CIWA-Ar Total Score: 4 BHS Progress Note (SOAP) Subjective: sweats Objective: 11/17/19 11:25 Vital Signs Temperature 98.2 F 11/17/19 09:17 Pulse Rate 87 11/17/19 09:17 Respiratory Rate 16 11/17/19 09:17 Blood Pressure 142/87 11/17/19 09:17 O2 Sat by Pulse Oximetry (%) aaox3 ambulating no acute distress Assessment: 11/17/19 11:25 mild withdrawals Plan: continue detox d/c in am
--- NOTE | 2019-11-17 12:56 | PN ---
[facility] Progress Note Note: RN called that pt BP is 154/95 HR 72 and his BP is not normalizing. Pt states he was on norvasc in the past last taken 1 month ago. pt will be placed on norvasc 10mg daily and HCTZ 12.5 bid. pt encouraged to see his PCP after detox for follow up treatment. pt in agreement
[2019-11-17] MEDS ORDERED: amLODIPine BESYLATE 10 MG TABLET (FP) PO ONE (13:30)
[2019-11-17] MEDS: HYDROCHLOROTHIAZIDE 12.5 MG CAPSULE (FP) PO SCH ×2 (13:34→22:15)
[2019-11-17] MEDS: THIAMINE HCL 100 MG TABLET (FP) PO SCH (22:16)
[2019-11-18] MEDS ORDERED: LORazepam 0.5 MG TABLET PO ONE (05:00)
[2019-11-18] MEDS: metFORMIN HCL 500 MG TABLET (FP) PO SCH (06:13)
[2019-11-18] MEDS: GEMFIBROZIL 600 MG TABLET (FP) PO SCH (07:03)
--- NOTE | 2019-11-18 08:28 | DS ---
[facility] Detox Discharge Summary Admission Date: 11/14/19 Discharge Date: 11/18/19 - History Present History: Alcohol Dependence - Physical Exam Results Vital Signs: Vital Signs Temperature 98.6 F 11/18/19 06:35 Pulse Rate 68 11/18/19 06:35 Respiratory Rate 18 11/18/19 06:35 Blood Pressure 139/72 11/18/19 06:35 O2 Sat by Pulse Oximetry (%) - Treatment Hospital Course: Detox Protocol Followed, Detoxed Safely, Responded well, Discharged Condition Good, Rehab Referral Accepted Patient has Accepted a Rehab Referral to: [facility] inpatient rehab - Medication Discharge Medications: Ambulatory Orders Gemfibrozil 600 mg PO BID 05/27/19 Folic Acid 1 tab PO DAILY 07/13/19 Gabapentin [Neurontin] 300 mg PO TID 07/13/19 Aspirin [ASA -] 81 mg PO DAILY #30 tab.chew 07/19/19 Atenolol [Tenormin -] 100 mg PO DAILY 14 Days #14 tablet 07/19/19 levETIRAcetam [Keppra -] 500 mg PO BID #60 tablet 07/19/19 metFORMIN HCL [Glucophage -] 1,000 mg PO BID@0700,1630 #60 tablet 07/19/19 - Diagnosis (1) Frequent falls Current Visit: Yes Status: Chronic (2) Insomnia Current Visit: No Status: Acute (3) Syncope Current Visit: No Status: Acute Qualifiers: Syncope type: unspecified Qualified Code(s): R55 - Syncope and collapse (4) Alcohol dependence with uncomplicated withdrawal Current Visit: Yes Status: Chronic (5) DM2 (diabetes mellitus, type 2) Current Visit: Yes Status: Chronic Qualifiers: 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 Diabetes mellitus complication status: without complication Qualified Code(s): E11.9 - Type 2 diabetes mellitus without complications (6) Depressive disorder Current Visit: No Status: Chronic (7) Elevated aspartate aminotransferase level Current Visit: No Status: Chronic (8) Essential (primary) hypertension Current Visit: No Status: Chronic (9) Hx of coronary artery disease Current Visit: No Status: Chronic (10) Hyperglycemia Current Visit: No Status: Chronic (11) Hyperlipemia Current Visit: Yes Status: Chronic Qualifiers: Hyperlipidemia type: unspecified (12) Hypertension Current Visit: Yes Status: Chronic Qualifiers: Hypertension type: essential hypertension Qualified Code(s): I10 - Essential (primary) hypertension (13) MDD (major depressive disorder) Current Visit: No Status: Chronic (14) Obesity (BMI 30-39.9) Current Visit: No Status: Chronic (15) Seizure disorder Current Visit: No Status: Chronic (16) Depressed Current Visit: No Status: Suspected Qualifiers: Depression Type: dysthymia Qualified Code(s): F34.1 - Dysthymic disorder (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
[2019-11-18 09:36] VITALS: BP 153/88; PULSE 81; TEMP 97
[2019-11-18] MEDS: ATENOLOL 50 MG TABLET (FP) PO SCH (10:24)
[2019-11-18] MEDS: levETIRAcetam 500 MG TABLET (FP) PO SCH (10:24)
[2019-11-18] MEDS: HYDROCHLOROTHIAZIDE 12.5 MG CAPSULE (FP) PO SCH (10:24)
[2019-11-18] MEDS: PRENATAL VITAMINS W/ FOLIC ACID TABLET (FP) PO SCH (10:24)
[2019-11-18] MEDS: ASPIRIN 81 MG CHEWABLE TABLETS PO SCH (10:24)
== END 2019-11-18 12:10 | disposition other institution (70) | DRG 775 ==
LOC: YASAS 08:05 → Y6N 10:41
PROVIDERS: ADMIT Allergy & Immunology; ATTEND Allergy & Immunology
PROC: HZ2ZZZZ Detoxification Services for Substance Abuse Treatment (ICD-10-PCS; principal; 2019-11-14)
DX: F10.230 Alcohol dependence with withdrawal, uncomplicated (principal); F19.24 Other psychoactive substance dependence with psychoactive substance-induced mood disorder; F21 Schizotypal disorder; I25.10 Atherosclerotic heart disease of native coronary artery without angina pectoris; I10 Essential (primary) hypertension; E78.5 Hyperlipidemia, unspecified; E11.9 Type 2 diabetes mellitus without complications; Z79.84 Long term (current) use of oral hypoglycemic drugs; G47.00 Insomnia, unspecified; G40.909 Epilepsy, unspecified, not intractable, without status epilepticus; R74.8 Abnormal levels of other serum enzymes; R29.6 Repeated falls; E66.9 Obesity, unspecified; Z68.32 Body mass index [BMI] 32.0-32.9, adult; Z88.8 Allergy status to other drugs, medicaments and biological substances; Z87.442 Personal history of urinary calculi; Z59.0 Homelessness
CPT/HCPCS: 36415; 80053; 82962; 85027; 86593; J0735

== ENCOUNTER 2019-11-18 12:32 | Inpatient (IN) | payer OTHER ==
[2019-11-18] MEDS ORDERED: ACETAMINOPHEN 325 MG TABLET (FP) PO PRN (13:09)
[2019-11-18] MEDS ORDERED: MAGNESIUM CITRATE 300 ML BOTTLE PO PRN (13:09)
[2019-11-18] MEDS ORDERED: MAGNESIUM HYDROX 2400MG/30ML ORAL SUSPENSION 30 ML CUP PO PRN (13:09)
[2019-11-18] MEDS ORDERED: LOPERAMIDE HCL 2 MG CAPSULE PO PRN (13:09)
[2019-11-18] MEDS ORDERED: MENTHOL/PHENOL 1 EACH UD MM PRN (13:09)
[2019-11-18] MEDS ORDERED: P-EPHED 60MG/TRIPROLIDI 2.5MG TABLET PO PRN (13:09)
[2019-11-18] MEDS ORDERED: hydrOXYzine PAMOATE 50 MG CAPSULE (FP) PO PRN (13:09)
[2019-11-18] MEDS ORDERED: IBUPROFEN 400 MG TABLET (FP) PO PRN (13:09)
[2019-11-18] MEDS ORDERED: guaiFENesin 200 MG/10 ML 10 ML UNIT-DOSE CUPS PO PRN (13:09)
[2019-11-18] MEDS ORDERED: MAG HYDROX/AL HYDROX/SIMETH 30 ML UNIT-DOSE CUP PO PRN (13:09)
--- NOTE | 2019-11-18 13:19 | HP ---
[facility] Rehab Assess/Revision - Admission History Admitted to Rehab from: [facility] Date of Admission to Rehab: 11/18/2019 - Vital signs Vital Signs: Vital Signs Period Temp Pulse Resp BP Sys/Torrez Pulse Ox Last 24 Hr 98.7 F 85 18 116/70 - Findings Detox History & Physical reviewed: Yes Concur with findings: Yes Comments/Additional Findings: General: no apparent distress. HEENTM: normocephalic. Neck: supple. Lungs:clear. Heart: s1 s2. MSK: full weight bearing, steady gait. Neuro: Cn 2-12intact. Keppra level ordered. Inpatient Rehab Admission - Rehab Decision to Admit Inpatient rehab admission?: Yes - Initial Determination Are CD services needed?: Yes Free of communicable disease: Yes Not in need of hospitalization: Yes - Rehab Admission Criteria Previous failed treatment: Yes Poor recovery environment: No Comorbidities: No Lacks judgement: No Patient is meeting Inpatient Rehab admission criteria:: Yes
[2019-11-18] MEDS: GEMFIBROZIL 600 MG TABLET (FP) PO SCH (16:40)
[2019-11-18] MEDS: THIAMINE HCL 100 MG TABLET (FP) PO SCH (21:35)
[2019-11-18] MEDS: levETIRAcetam 500 MG TABLET (FP) PO SCH (21:35)
[2019-11-19] MEDS: metFORMIN HCL 500 MG TABLET (FP) PO SCH ×2 (06:27→16:30)
[2019-11-19] MEDS: GEMFIBROZIL 600 MG TABLET (FP) PO SCH ×2 (06:27→16:30)
[2019-11-19] MEDS: levETIRAcetam 500 MG TABLET (FP) PO SCH ×2 (10:59→21:12)
[2019-11-19] MEDS: ATENOLOL 50 MG TABLET (FP) PO SCH (10:59)
[2019-11-19] MEDS: PRENATAL VITAMINS W/ FOLIC ACID TABLET (FP) PO SCH (10:59)
[2019-11-19] MEDS: ASPIRIN 81 MG CHEWABLE TABLETS PO SCH (10:59)
[2019-11-19] MEDS: MELATONIN 5 MG TABLETS PO PRN (21:12)
[2019-11-19] MEDS: THIAMINE HCL 100 MG TABLET (FP) PO SCH (21:12)
[2019-11-20] MEDS: GEMFIBROZIL 600 MG TABLET (FP) PO SCH ×2 (07:04→16:43)
[2019-11-20] MEDS: metFORMIN HCL 500 MG TABLET (FP) PO SCH ×2 (07:04→16:43)
[2019-11-20] MEDS: ASPIRIN 81 MG CHEWABLE TABLETS PO SCH (09:57)
[2019-11-20] MEDS: levETIRAcetam 500 MG TABLET (FP) PO SCH ×2 (09:57→21:08)
[2019-11-20] MEDS: ATENOLOL 50 MG TABLET (FP) PO SCH (09:57)
[2019-11-20] MEDS: PRENATAL VITAMINS W/ FOLIC ACID TABLET (FP) PO SCH (09:57)
[2019-11-20] MEDS ORDERED: INSULIN (NOVOLOG) ASPART 100 UNITS/ML 10ML VIAL ONE (16:37)
[2019-11-20] MEDS: MELATONIN 5 MG TABLETS PO PRN (21:08)
[2019-11-20] MEDS: THIAMINE HCL 100 MG TABLET (FP) PO SCH (21:08)
[2019-11-21] MEDS: metFORMIN HCL 500 MG TABLET (FP) PO SCH ×2 (07:25→16:38)
[2019-11-21] MEDS: GEMFIBROZIL 600 MG TABLET (FP) PO SCH ×2 (07:26→16:38)
[2019-11-21] MEDS: PRENATAL VITAMINS W/ FOLIC ACID TABLET (FP) PO SCH (09:54)
[2019-11-21] MEDS: ASPIRIN 81 MG CHEWABLE TABLETS PO SCH (09:54)
[2019-11-21] MEDS: levETIRAcetam 500 MG TABLET (FP) PO SCH ×2 (09:54→21:25)
[2019-11-21] MEDS: ATENOLOL 50 MG TABLET (FP) PO SCH (09:54)
[2019-11-21] MEDS: THIAMINE HCL 100 MG TABLET (FP) PO SCH (21:25)
[2019-11-22] MEDS: metFORMIN HCL 500 MG TABLET (FP) PO SCH ×2 (06:13→16:39)
[2019-11-22] MEDS: GEMFIBROZIL 600 MG TABLET (FP) PO SCH ×2 (06:13→16:39)
[2019-11-22] MEDS: ATENOLOL 50 MG TABLET (FP) PO SCH (09:54)
[2019-11-22] MEDS: ASPIRIN 81 MG CHEWABLE TABLETS PO SCH (09:54)
[2019-11-22] MEDS: PRENATAL VITAMINS W/ FOLIC ACID TABLET (FP) PO SCH (09:55)
[2019-11-22] MEDS: levETIRAcetam 500 MG TABLET (FP) PO SCH ×2 (09:55→21:20)
[2019-11-22] MEDS: THIAMINE HCL 100 MG TABLET (FP) PO SCH (21:20)
[2019-11-22] MEDS: MELATONIN 5 MG TABLETS PO PRN (23:19)
[2019-11-23] MEDS: GEMFIBROZIL 600 MG TABLET (FP) PO SCH ×2 (06:08→16:33)
[2019-11-23] MEDS: metFORMIN HCL 500 MG TABLET (FP) PO SCH ×2 (06:09→16:33)
[2019-11-23] MEDS: PRENATAL VITAMINS W/ FOLIC ACID TABLET (FP) PO SCH (09:44)
[2019-11-23] MEDS: ASPIRIN 81 MG CHEWABLE TABLETS PO SCH (09:44)
[2019-11-23] MEDS: ATENOLOL 50 MG TABLET (FP) PO SCH (09:44)
[2019-11-23] MEDS: levETIRAcetam 500 MG TABLET (FP) PO SCH ×2 (09:44→21:21)
[2019-11-23] MEDS: THIAMINE HCL 100 MG TABLET (FP) PO SCH (21:21)
[2019-11-23] MEDS: MELATONIN 5 MG TABLETS PO PRN (22:45)
[2019-11-24] MEDS: GEMFIBROZIL 600 MG TABLET (FP) PO SCH ×2 (07:02→17:49)
[2019-11-24] MEDS: metFORMIN HCL 500 MG TABLET (FP) PO SCH ×2 (07:02→17:49)
[2019-11-24] MEDS: ATENOLOL 50 MG TABLET (FP) PO SCH (10:46)
[2019-11-24] MEDS: ASPIRIN 81 MG CHEWABLE TABLETS PO SCH (10:46)
[2019-11-24] MEDS: levETIRAcetam 500 MG TABLET (FP) PO SCH ×2 (10:46→21:33)
[2019-11-24] MEDS: PRENATAL VITAMINS W/ FOLIC ACID TABLET (FP) PO SCH (10:46)
--- NOTE | 2019-11-24 15:41 | PN ---
[facility] Progress Note Note: Laboratory Tests 11/18/19 11/19/19 11/20/19 11:05 05:57 06:05 POC Glucometer 112 107 Levetiracetam <1.0 L 11/20/19 11/21/19 11/22/19 16:44 05:56 06:11 POC Glucometer 153 112 108 Levetiracetam 11/22/19 11/23/19 11/24/19 16:37 16:31 06:11 POC Glucometer 179 160 99 Levetiracetam Keppra level on 11/18/19, subtherapeutic. Has been on Keppra for one week now, will repeat level in am. Patient asymptomatic.
[2019-11-24] MEDS: THIAMINE HCL 100 MG TABLET (FP) PO SCH (21:33)
[2019-11-25] MEDS: GEMFIBROZIL 600 MG TABLET (FP) PO SCH ×2 (06:22→16:26)
[2019-11-25] MEDS: metFORMIN HCL 500 MG TABLET (FP) PO SCH ×2 (06:22→16:26)
[2019-11-25] MEDS: ATENOLOL 50 MG TABLET (FP) PO SCH (10:34)
[2019-11-25] MEDS: ASPIRIN 81 MG CHEWABLE TABLETS PO SCH (10:34)
[2019-11-25] MEDS: PRENATAL VITAMINS W/ FOLIC ACID TABLET (FP) PO SCH (10:34)
[2019-11-25] MEDS: levETIRAcetam 500 MG TABLET (FP) PO SCH ×2 (10:34→21:16)
[2019-11-25] MEDS: THIAMINE HCL 100 MG TABLET (FP) PO SCH (21:16)
[2019-11-26] MEDS: GEMFIBROZIL 600 MG TABLET (FP) PO SCH ×2 (06:53→16:46)
[2019-11-26] MEDS: metFORMIN HCL 500 MG TABLET (FP) PO SCH ×2 (06:53→16:46)
[2019-11-26] MEDS: ATENOLOL 50 MG TABLET (FP) PO SCH (10:08)
[2019-11-26] MEDS: ASPIRIN 81 MG CHEWABLE TABLETS PO SCH (10:08)
[2019-11-26] MEDS: levETIRAcetam 500 MG TABLET (FP) PO SCH ×2 (10:09→21:20)
[2019-11-26] MEDS: PRENATAL VITAMINS W/ FOLIC ACID TABLET (FP) PO SCH (10:09)
[2019-11-26] MEDS: THIAMINE HCL 100 MG TABLET (FP) PO SCH (21:20)
[2019-11-27] MEDS: GEMFIBROZIL 600 MG TABLET (FP) PO SCH ×2 (06:16→16:26)
[2019-11-27] MEDS: metFORMIN HCL 500 MG TABLET (FP) PO SCH ×2 (06:16→16:26)
[2019-11-27] MEDS: ASPIRIN 81 MG CHEWABLE TABLETS PO SCH (09:41)
[2019-11-27] MEDS: PRENATAL VITAMINS W/ FOLIC ACID TABLET (FP) PO SCH (09:41)
[2019-11-27] MEDS: levETIRAcetam 500 MG TABLET (FP) PO SCH ×2 (09:41→21:24)
[2019-11-27] MEDS: ATENOLOL 50 MG TABLET (FP) PO SCH (09:41)
[2019-11-27] MEDS: THIAMINE HCL 100 MG TABLET (FP) PO SCH (21:24)
[2019-11-28] MEDS: metFORMIN HCL 500 MG TABLET (FP) PO SCH ×2 (06:15→16:26)
[2019-11-28] MEDS: GEMFIBROZIL 600 MG TABLET (FP) PO SCH ×2 (06:19→16:26)
[2019-11-28] MEDS: PRENATAL VITAMINS W/ FOLIC ACID TABLET (FP) PO SCH (09:56)
[2019-11-28] MEDS: levETIRAcetam 500 MG TABLET (FP) PO SCH ×2 (09:56→21:21)
[2019-11-28] MEDS: ASPIRIN 81 MG CHEWABLE TABLETS PO SCH (09:56)
[2019-11-28] MEDS: ATENOLOL 50 MG TABLET (FP) PO SCH (09:56)
--- NOTE | 2019-11-28 10:08 | PN ---
[facility] Progress Note Note: Patient requested to review labs. He denies any medical complaints at this time. Laboratory Tests 11/18/19 11/19/19 11/20/19 11:05 05:57 06:05 POC Glucometer 112 107 Levetiracetam <1.0 L 11/20/19 11/21/19 11/22/19 16:44 05:56 06:11 POC Glucometer 153 112 108 Levetiracetam 11/22/19 11/23/19 11/24/19 16:37 16:31 06:11 POC Glucometer 179 160 99 Levetiracetam 11/25/19 11/25/19 11/25/19 05:53 08:10 16:25 POC Glucometer 154 150 Levetiracetam 9.9 L 11/26/19 11/27/19 11/28/19 05:59 06:15 06:18 POC Glucometer 137 121 193 Levetiracetam Vital Signs Temperature 97.9 F 11/28/19 07:41 Pulse Rate 73 11/28/19 08:25 Respiratory Rate 18 11/28/19 08:25 Blood Pressure 136/82 11/28/19 08:25 O2 Sat by Pulse Oximetry (%) PE alert and oriented x 3 skin warm and dry +perrla, eoms intact bl cn 1-x11 grossly intact ext full rom, no tremors amb ad gini AIC 8.0 11/19/2019 a/p: DM: stable on treatment, labs reviewed and results given to patient. SZD: stable, last Keppra level 9.9 alcohol dependence: Vivitrol and Revia treatment risk vs benefits discussed, patient refused at this time Requested HCV test, last screeing negative in 2016, will order HCV testing in am.
[2019-11-28] MEDS: THIAMINE HCL 100 MG TABLET (FP) PO SCH (21:21)
[2019-11-29] MEDS: metFORMIN HCL 500 MG TABLET (FP) PO SCH ×2 (06:54→17:06)
[2019-11-29] MEDS: GEMFIBROZIL 600 MG TABLET (FP) PO SCH ×2 (06:54→17:06)
[2019-11-29] MEDS: ASPIRIN 81 MG CHEWABLE TABLETS PO SCH (10:19)
[2019-11-29] MEDS: levETIRAcetam 500 MG TABLET (FP) PO SCH ×2 (10:19→21:29)
[2019-11-29] MEDS: ATENOLOL 50 MG TABLET (FP) PO SCH (10:19)
[2019-11-29] MEDS: PRENATAL VITAMINS W/ FOLIC ACID TABLET (FP) PO SCH (10:19)
[2019-11-29] MEDS: THIAMINE HCL 100 MG TABLET (FP) PO SCH (21:29)
[2019-11-29] MEDS: MELATONIN 5 MG TABLETS PO PRN (23:33)
[2019-11-30] MEDS: GEMFIBROZIL 600 MG TABLET (FP) PO SCH ×2 (06:18→16:53)
[2019-11-30] MEDS: metFORMIN HCL 500 MG TABLET (FP) PO SCH ×2 (06:18→16:53)
[2019-11-30] MEDS: levETIRAcetam 500 MG TABLET (FP) PO SCH ×2 (10:13→21:33)
[2019-11-30] MEDS: ATENOLOL 50 MG TABLET (FP) PO SCH (10:13)
[2019-11-30] MEDS: ASPIRIN 81 MG CHEWABLE TABLETS PO SCH (10:13)
[2019-11-30] MEDS: PRENATAL VITAMINS W/ FOLIC ACID TABLET (FP) PO SCH (10:13)
[2019-11-30] MEDS: MELATONIN 5 MG TABLETS PO PRN (21:33)
[2019-11-30] MEDS: THIAMINE HCL 100 MG TABLET (FP) PO SCH (21:33)
[2019-12-01] MEDS: GEMFIBROZIL 600 MG TABLET (FP) PO SCH ×2 (06:07→16:24)
[2019-12-01] MEDS: metFORMIN HCL 500 MG TABLET (FP) PO SCH ×2 (06:07→16:24)
--- NOTE | 2019-12-01 09:41 | PN ---
[facility] Progress Note Note: Pt wants copy of labs- printed and given to pt
[2019-12-01] MEDS: ATENOLOL 50 MG TABLET (FP) PO SCH (09:52)
[2019-12-01] MEDS: PRENATAL VITAMINS W/ FOLIC ACID TABLET (FP) PO SCH (09:52)
[2019-12-01] MEDS: levETIRAcetam 500 MG TABLET (FP) PO SCH ×2 (09:52→21:10)
[2019-12-01] MEDS: ASPIRIN 81 MG CHEWABLE TABLETS PO SCH (09:52)
[2019-12-01] MEDS: THIAMINE HCL 100 MG TABLET (FP) PO SCH (21:10)
[2019-12-02] MEDS: metFORMIN HCL 500 MG TABLET (FP) PO SCH ×2 (06:08→16:45)
[2019-12-02] MEDS: GEMFIBROZIL 600 MG TABLET (FP) PO SCH ×2 (06:08→16:45)
[2019-12-02] MEDS: levETIRAcetam 500 MG TABLET (FP) PO SCH ×2 (09:34→21:19)
[2019-12-02] MEDS: ATENOLOL 50 MG TABLET (FP) PO SCH (09:34)
[2019-12-02] MEDS: ASPIRIN 81 MG CHEWABLE TABLETS PO SCH (09:34)
[2019-12-02] MEDS: PRENATAL VITAMINS W/ FOLIC ACID TABLET (FP) PO SCH (09:34)
--- NOTE | 2019-12-02 13:05 | DS ---
[facility] Rehab Discharge Summary - [facility] Rehab Discharge Summary Admission Date: 11/18/19 Discharge Date: 12/02/19 - History Present History: Alcohol dependence Pertinent Past History: Mr. Machado is a 54 yo gentleman with a PMH of NIDDM, [place], seizures and hyperlipidemia who presents for alcohol use disorder. He drinks one pint of Vodka daily in addition to 3 x 24 ounces of beer daily. He began drinking at the age of 18 y. He has had seizures in the past, the most recent in July of 2019. He states that he has had blackouts while drinking , perhaps 5 years ago. Tobacco: snuff Cocaine: last use in 2006 - Discharge Physical Exam Vital Signs: Vital Signs Temperature 97.7 F 12/02/19 06:48 Pulse Rate 85 12/02/19 09:17 Respiratory Rate 18 12/02/19 09:17 Blood Pressure 134/76 12/02/19 09:17 O2 Sat by Pulse Oximetry (%) Pertinent Admission Physical Exam Findings: hysical General Appearance: No apparent distress HEENTM: Normocephalic Respiratory: Lungs Clear, Neck: Supple Cardiology: S1, S2 Abdominal: +Bowel Sounds Neurological: leather carver II-XII NML intact, - Treatment Discharge Condition: Outpatient referral accepted (Medically stable for discharge. patient will go to [place] for aftercare) Hospital Course: Patient attended groups, had 1:1 with his counselor, was adherent to his medication and treatment regimen. - Medication Discharge Medications: Ambulatory Orders Gemfibrozil 600 mg PO BID 05/27/19 Folic Acid 1 tab PO DAILY 07/13/19 Aspirin [ASA -] 81 mg PO DAILY #30 tab.chew 07/19/19 Atenolol [Tenormin -] 100 mg PO DAILY 14 Days #14 tablet 07/19/19 levETIRAcetam [Keppra -] 500 mg PO BID #60 tablet 07/19/19 metFORMIN HCL [Glucophage -] 500 mg PO BID@0700,1630 11/18/19 - Medication-Assisted Treatment (MAT) Medication-Assisted Treatment (MAT): No - Discharge Instructions Diet, activity, other medical instructions: Diet: as tolerated Activity: as tolerated Other medical instructions: Please follow up with aftercare referral - Diagnosis (1) Alcohol dependence with uncomplicated withdrawal Current Visit: No Status: Chronic - AMA Did Patient Leave Against Medical Advice: No Additional Comments: Patient states he does not need prescriptions transmitted to his pharmacy.
[2019-12-02] MEDS: MELATONIN 5 MG TABLETS PO PRN (21:19)
[2019-12-02] MEDS: THIAMINE HCL 100 MG TABLET (FP) PO SCH (21:19)
[2019-12-03] MEDS: metFORMIN HCL 500 MG TABLET (FP) PO SCH (06:18)
[2019-12-03] MEDS: GEMFIBROZIL 600 MG TABLET (FP) PO SCH (06:18)
[2019-12-03 07:11] VITALS: BP 140/82; PULSE 80; TEMP 97.8
== END 2019-12-03 09:07 | disposition home or self-care (01) | DRG 772 ==
LOC: YASAS 12:32 → Y3W 12:34
PROVIDERS: ADMIT Allergy & Immunology; ATTEND Allergy & Immunology
PROC: HZ42ZZZ Group Counseling for Substance Abuse Treatment, Cognitive-Behavioral (ICD-10-PCS; principal; 2019-11-18)
DX: F10.20 Alcohol dependence, uncomplicated (principal); I25.10 Atherosclerotic heart disease of native coronary artery without angina pectoris; I10 Essential (primary) hypertension; I25.2 Old myocardial infarction; E11.9 Type 2 diabetes mellitus without complications; Z79.84 Long term (current) use of oral hypoglycemic drugs; G40.909 Epilepsy, unspecified, not intractable, without status epilepticus; E78.5 Hyperlipidemia, unspecified; Z88.8 Allergy status to other drugs, medicaments and biological substances; Z59.0 Homelessness
CPT/HCPCS: 36415; 80177; 82962; 86803

== ENCOUNTER 2020-07-28 14:41 | Emergency (ER) | payer OTHER ==
--- OUTSIDE RECORDS SUMMARY | 2020-07-28 15:11 | XMS ---
:1965 Author Organization [facility] Care Team Providers Name Role Phone VERONICA Daily Unavailable Unavailable ED STAFF PHYSICIAN, STAFF Unavailable Unavailable BENNIE BARONE Unavailable Unavailable Re-disclosure Warning The records that you are about to access may contain information from federally- assisted alcohol or drug abuse programs. If such information is present, then the following federally mandated warning applies: This information has been disclosed to you from records protected by federal confidentiality rules (42 CFR part 2). The federal rules prohibit you from making any further disclosure of this information unless further disclosure is expressly permitted by the written consent of the person to whom it pertains or as otherwise permitted by 42 CFR part 2. A general authorization for the release of medical or other information is NOT sufficient for this purpose. The Federal rules restrict any use of the information to criminally investigate or prosecute any alcohol or drug abuse patient.The records that you are about to access may contain highly sensitive health information, the redisclosure of which is protected by Article 27-F of the [facility] Public Health law. If you continue you may haveaccess to information: Regarding HIV / AIDS; Provided by facilities licensed or operated by the [facility] Office of Mental Health; or Provided by the [facility] Office for People With Developmental Disabilities. If such information is present, then the following [facility] mandated warning applies: This information has been disclosed to you from confidential records which are protected by state law. State law prohibits you from making any further disclosure of this information without the specific written consent of the person to whom it pertains, or as otherwise permitted by law. Any unauthorized further disclosure in violation of state law may result in a fine or retirement sentence or both. A general authorization for the release of medical or other information is NOT sufficient authorization for further disclosure. Encounters Encounter Providers Location Date Indications Data Source(s ) Emergency Attender: VERONICA Lara 11/13/2019 [facility] [place] WAttender: 09:39:00 PM EST [facility] STAFF ED STAFF - 11/14/2019 PHYSICIANAdmitter: 03:09:00 AM EST VERONICA Daily Patient discharged. Emergency Attender: BENNIE AVERY H 09/07/2019 03:24 :00 PM [facility]: STAFF ED STAFF EST - 09/07/2019 [facility] PHYSICIANAdmitter: BENNIE 07:07:00 PM EST [facility] Patient discharged. Insurance Providers Payer name Policy type Policy ID Covered Covered republican's Policy P man / Coverage republican ID relationship to [place] [employer] ormation type collins [employer] PLUS [id number] SP [id number] HEALTH PLAN [place] [id number] SP [id number] METROPLUS MEDICAID [id number] SP [id number] HEALTH FIRST [id number] SP [id number] BEACON [id number] SP [id number] METROPLUS METROPLUS W [id number] 01 [id number] BEACON [id number] SP [id number] METROPLUS O [id number] 01 [id number] METRO PLUS [id number] SP [id number] HEALTH PLAN UNHC MEDICAID [id number] SP [id number] COMM PLAN MEDICAID [id number] SP [id number] HEALTH FIRST [id number] SP [id number] H W [id number] 01 [id number] HMO DEL O [id number] 01 [id number] [employer] Problems, Conditions, and Diagnoses Code Display Name Description Problem Type Effective Data Dates Source(s) I10 Essential ESSENTIAL Diagnosis 11/13/2019 [facility] (primary) (PRIMARY) 09:39:00 PM Medical hypertension HYPERTENSION EST Center E11.9 Type 2 diabetes TYPE 2 DIABETES Diagnosis 11/13/2019 [facility] mellitus without MELLITUS WITHOUT 09:39:00 PM M edical complications COMPLICATIONS EST Center F10.129 Alcohol abuse with ALCOHOL ABUSE WITH Diagnosis 0 [facility] intoxication, INTOXICATION, 09:39:00 PM Medical unspecified UNSPECIFIED EST Center T65.91XA Toxic effect of TOXIC EFFECT OF Diagnosis 11/13/2019 [facility] unspecified UNSP SUBSTANCE, 09:39:00 PM Medical substance, ACCIDENTAL, INIT EST Center accidental (unintentional), initial encounter Z72.0 Tobacco use TOBACCO USE Diagnosis 09/07/2019 [facility] short 03:24:00 PM Medical EST Center E78.5 Hyperlipidemia, HYPERLIPIDEMIA, Diagnosis 09/07/2019 [facility] unspecified UNSPECIFIED 03:24:00 PM Medical [facility] Center Results ID Date Data Source [id number] 07/14/2020 03:00:00 AM EDT [facility] Name Value Range Interpretation Description Data Sup porting Code Source(s) Document(s ) SARS-CoV-2 [facility] Reportable This lab was ordered by [facility] and reported by [facility]. ID Date Data Source [id number] 07/10/2020 08:03:00 AM EDT [facility] Name Value Range Interpretation Code Description Data Yolette rce(s) Supporting Document(s ) SARS-CoV-2 [facility] Ql MAYKEL+probe This lab was ordered by [facility] nd reported by [facility]. ID Date Data Source [id number] 06/08/2020 10:45:00 PM EDT [facility] Name Value Range Interpretation Description Data Sup porting Code Source(s) Document(s ) SARS [facility] coronavirus 2 RNA This lab was ordered by [facility] Serge Javier and reported by [facility]. ID Date Data Source [id number] 04/05/2020 02:28:00 AM EDT [facility] Name Value Range Interpretation Code Description Data Yolette rce(s) Supporting Document(s ) SARS-COV-2 [facility] PCR This lab was ordered by JOE PADRON and reported by [facility]. ID Date Data Source [id number] 03/22/2020 05:43:00 AM EDT [facility] Name Value Range Interpretation Description Data Sup porting Code Source(s) Document(s ) SARS [facility] CORONAVIRUS 2 RNA This lab was ordered by [facility] and reported by [facility]. ID Date Data Source [id number] 03/07/2020 12:00:00 AM EDT [facility] Name Value Range Interpretation Code Description Data Yolette rce(s) Supporting Document(s ) SARS-CoV-2 [facility] RNA Resp Ql MAYKEL+probe This lab was ordered by [facility] and reported by [facility]. ID Date Data Source [id number] 02/04/2020 10:44:00 AM EDT [facility] Name Value Range Interpretation Description Data Sup porting Code Source(s) Document(s ) SARS-CoV-2 [facility] Reportable This lab was ordered by Alejandro moran and reported by [facility]. ID Date Data Source [id number] 02/02/2020 03:32:00 PM EDT [facility] Name Value Range Interpretation Description Data Sup porting Code Source(s) Document(s ) SARS-CoV-2 [facility] Reportable This lab was ordered by Alejandro moran and reported by [facility]. ID Date Data Source [id number] 01/31/2020 06:00:00 AM EDT [facility] Name Value Range Interpretation Description Data Sup porting Code Source(s) Document(s ) SARS-CoV-2 [facility] Reportable This lab was ordered by Alejandro moran and reported by [facility]. ID Date Data Source [id number] 01/15/2020 12:00:00 AM EDT [facility] Name Value Range Interpretation Code Description Data Yolette rce(s) Supporting Document(s ) 2019-nCoV [facility] RNA XXX MAYKEL+probe- Imp [facility] and reported by [employer] ID Date Data Source [id number] 01/10/2020 12:00:00 AM EDT [facility] Name Value Range Interpretation Code Description Data Yolette rce(s) Supporting Document(s ) 2018-nCoV [facility] RNA XXX MAYKEL+probe- Imp This lab was [facility] and reported by [employer] Procedure Social History Code Duration Value Status Description Data Source(s ) Smoking 11/13/2019 Occasional Smoker completed Occasional Smoker [facility] 10:42:00 PM EST Medical C enter Smoking 11/13/2019 Occasional Smoker completed Occasional Smoker [facility] 09:53:00 PM EST Medical C enter Smoking 11/13/2019 Occasional Smoker completed Occasional Smoker [facility] 09:44:00 PM EST Medical C enter Smoking 09/07/2019 Occasional Smoker completed Occasional Smoker [facility] 03:36:00 PM EST Medical C enter Smoking 09/07/2019 Occasional Smoker completed Occasional Smoker [facility] 03:32:00 PM EST Medical C enter Vital Signs ID Date Data Source UNK Name Value Range Interpretation Code Description Data Source(s) Body temperature 36.255072 36.701136 [facility] Respiratory rate 18 /min 18 /min [facility] Oxygen saturation 99 % 99 % [facility] blood [facility] by Pulse oximetry Heart rate 86 /min 86 /min [facility] Diastolic blood 72 mm[Hg] 72 mm[Hg] [facility] Systolic blood 124 mm[Hg] 124 mm[Hg] [facility] Body temperature 36.299691 36.223794 [facility] Respiratory rate 18 /min 18 /min [facility] Oxygen saturation 96 % 96 % [facility] blood [facility] by Pulse oximetry Heart rate 96 /min 96 /min [facility] Diastolic blood 66 mm[Hg] 66 mm[Hg] [facility] Systolic blood 121 mm[Hg] 121 mm[Hg] [facility] Body temperature 36.533651 36.375239 [facility] Respiratory rate 18 /min 18 /min [facility] Oxygen saturation 99 % 99 % [facility] blood [facility] by Pulse oximetry Heart rate 100 /min 100 /min [facility] Diastolic blood 70 mm[Hg] 70 mm[Hg] [facility] Systolic blood 111 mm[Hg] 111 mm[Hg] [facility] Body weight 99.641128 kg 99.946802 kg [facility] Body temperature 36.408260 36.340947 [facility] Respiratory rate 18 /min 18 /min [facility] Oxygen saturation 99 % 99 % [facility] by Pulse oximetry Heart rate 102 /min 102 /min [facility] Body height 172.184354 172.946164 cm [facility] Diastolic blood 77 mm[Hg] 77 mm[Hg] [facility] Systolic blood 141 mm[Hg] 141 mm[Hg] [facility] Body mass index 33.4 kg/m2 33.4 kg/m2 [facility] (BMI) [Ratio] Medical Maryjane ter
--- NOTE | 2020-07-28 15:19 | PDOC ---
Rapid Medical Evaluation Time Seen by Provider: 07/28/20 15:01 Medical Evaluation: Allergies Allergy/AdvReac Type Severity Reaction Status Date / Time RASHAD Inhibitors Allergy Severe Swelling Verified 11/18/19 12:41 lisinopril Allergy Severe Swelling Verified 11/18/19 12:41 07/28/20 15:17 I performed a brief in-person evaluation of this patient. Pt is a 55 y/o male, undomiciled, dropped off at [facility] for detox but was too intoxicated for detox. Pt sleeping but arousable. Pertinent physical exam findings:sleeping but arousable, responds when spoken to I have ordered the following: none Patient to proceed to ED for further evaluation. Discharge Disposition - Diagnosis Alcohol intoxication - Discharge Dispostion Last Admission D/C Date: 06/12/20 - Referrals - Patient Instructions - Post Discharge Activity
[2020-07-28 15:27] VITALS: BP 126/78; PULSE 87; BMI 32.1
[2020-07-28] MEDS ORDERED: levETIRAcetam 500 MG TABLET (FP) PO ONE ×2 (17:03→17:05)
--- NOTE | 2020-07-28 17:09 | PDOC ---
History of Present Illness - General Chief Complaint: Alcohol intoxication Stated Complaint: INTOX Time Seen by Provider: 07/28/20 15:01 - History of Present Illness Initial Comments: 07/28/20 17:03 55yo undomiciled M w/ hx of seizure disorder, DM, and ETOH use disorder sent here by [facility] due to heavy intoxication, with EtOH >.400. Pt, currently intoxicated, expresses desire to stop drinking via detox at [facility]. He states his last seizure was 1+ week ago. He also states he has not been compliant with any of his medication. Past History - Medical History Allergies/Adverse Reactions: Allergies Allergy/AdvReac Type Severity Reaction Status Date / Time RASHAD Inhibitors Allergy Severe Swelling Verified 07/29/20 00:14 lisinopril Allergy Severe Swelling Verified 07/29/20 00:14 Home Medications: Ambulatory Orders Gemfibrozil 600 mg PO BID 05/27/19 Aspirin [ASA -] 81 mg PO DAILY #30 tab.chew 07/19/19 Atenolol [Tenormin -] 100 mg PO DAILY 14 Days #14 tablet 07/19/19 levETIRAcetam [Keppra -] 500 mg PO BID #60 tablet 07/19/19 metFORMIN HCL [Glucophage -] 500 mg PO BID@0700,1630 11/18/19 Anemia: No Asthma: No Cancer: No Cardiac Disorders: No CVA: No COPD: No CHF: No Dementia: No Diabetes: Yes GI Disorders: No Disorders: No HTN: Yes Hypercholesterolemia: Yes (Gemfibra) Kidney Stones: No Liver Disease: No Psychiatric Problems: Yes (etoh/) Seizures: Yes (pt on Keppra, last episode of seizure was 5 mos ago) Thyroid Disease: No - Surgical History Abdominal Surgery: No Appendectomy: No Cardiac Surgery: No Cholecystectomy: No Lung Surgery: No Neurologic Surgery: No Orthopedic Surgery: No - Reproductive History Testicular Surgery: No - Immunization History Immunization Up to Date: No - Psycho-Social/Smoking History Smoking History: Unknown if ever smoked Have you smoked in the past 12 months: No Number of Cigarettes Smoked Daily: 0 If you are a former smoker, when did you quit?: at age 19 Cigars Per Day: 0 'Breaking Loose' booklet given: 01/31/19 Review of Systems - Review of Systems Able to Perform ROS?: Yes Is the patient limited Vietnamese proficient: No *Physical Exam - Vital Signs Last Vital Signs Temp Pulse Resp BP Pulse Ox 87 18 126/78 99 07/28/20 15:23 07/28/20 15:23 07/28/20 15:23 07/28/20 15:23 - Physical Exam General Appearance: Yes: Disheveled, Obese. No: Appropriately Dressed HEENT: positive: Lesions (R tongue - swollen from reported biting during seizure). negative: Normal Voice (slurring), Scleral Icterus (R), Scleral Icterus (L) Neck: positive: Trachea midline, Supple Respiratory/Chest: positive: Lungs Clear. negative: Accessory Muscle Use Cardiovascular: positive: Regular Rate. negative: JVD Gastrointestinal/Abdominal: positive: Normal Bowel Sounds, Protuberent, Distended Musculoskeletal: positive: Normal Inspection, Other (ambulatory while intoxicated). negative: CVA Tenderness Extremity: positive: Normal Capillary Refill, Normal Inspection Integumentary: positive: Dry, Warm. negative: Clammy, Diaphoresis, Bruising Neurologic: positive: Alert. negative: Fully Oriented (intoxicated ), Normal Response ED Treatment Course - RADIOLOGY Radiology Studies Ordered: Category Date Time Status HEAD CT WITHOUT CONTRAST [CT] Stat CT Scan 07/28/20 17:02 Ordered Medical Decision Making - Medical Decision Making 07/28/20 17:09 55yo M w/ hx of seizure disorder presents intoxicated - seeking medical clearance for detox. head trauma - reports hx falls and seizures -> will obtain noncon head CT Diabetic complications -> will obtain BG hx of seizure disorder reporting noncompliance w/ Rx -> will give normal (documented) dose of keppra 07/28/20 18:04 BG 92 - normal. will await CT and then call [facility] 07/28/20 18:15 [facility] has a bed available for Detox. - will await CT read and if negative then will send pt. CT negative -> DC 08/01/20 12:05 Discharge - Discharge Information Problems reviewed: Yes Clinical Impression/Diagnosis: Alcohol intoxication Qualifiers: Complication of substance-induced condition: uncomplicated Qualified Code(s): F10.920 - Alcohol use, unspecified with intoxication, uncomplicated Condition: Stable Disposition: HOME - Admission No - Follow up/Referral Referrals: [facility] [place] [Provider Group] - Patient Discharge Instructions Patient Printed Discharge Instructions: DI for Alcohol Use Disorder Additional Instructions: You were seen in the ED for alcohol intoxication. We performed a CT of your head, due to your reports of falling multiple times. We also tested your blood sugar and gave you your normal dose of keppra (500mg). We deemed you safe for discharge, and you got a bed at [facility]. We hope you are successful in detoxing. We are always here, so please come back with any new or worsening symptoms. - Post Discharge Activity
--- NOTE | 2020-07-28 17:18 | PDOC ---
Attending Attestation - Resident Resident Name: Nitesh Velazquez - ED Attending Attestation I have performed the following: I have examined & evaluated the patient, The case was reviewed & discussed with the resident, I agree w/resident's findings & plan, Exceptions are as noted - HPI HPI: 07/28/20 17:02 55yo male with pmhx of htn, dm, epilepsy presents for eval of etoh intoxication. Pt is undomiciled and was dropped off at [facility] for detox, but had a BRAC of >.4 so was sent to the ER for further eval. Pt states he wants to go to detox. Pt states he lost his dm and seizure meds - takes metformin and keppra. States he had a seizure about a week ago. Pt states he has also fallen recently. Pt denies cp/sob. No abd pain. No other complaints. Pt is currently intoxicated. - Physicial Exam PE: 07/28/20 17:20 Gen: aaox2 - person, place heent: MMM, old tongue bite to R side of the tongue neck: supple, no midline ttp heart: +s1s2 reg lungs: cta b/l abd: soft, nt/nd +bs ext: no c/c/e, ambulatory with a steady gait - Medical Decision Making 07/28/20 17:21 a/p: 55yo male with alcohol intox -given a seizure last week and etoh use, will send for head ct -will dose keppra in the ER -will also check glu -will call [facility] after imaging results -pt is neuro intact 07/28/20 18:[address] without acute findings pt stable for dc to [facility] Resident called [facility] and there is a bed available pt will go with security to [facility] Discharge - Discharge Information Problems reviewed: Yes Clinical Impression/Diagnosis: Alcohol intoxication Qualifiers: Complication of substance-induced condition: uncomplicated Qualified Code(s): F10.920 - Alcohol use, unspecified with intoxication, uncomplicated Condition: Stable Disposition: HOME - Admission No - Follow up/Referral Referrals: [facility] [place] [Provider Group] - Patient Discharge Instructions Patient Printed Discharge Instructions: DI for Alcohol Use Disorder Additional Instructions: You were seen in the ED for alcohol intoxication. We performed a CT of your head, due to your reports of falling multiple times. We also tested your blood sugar and gave you your normal dose of keppra (500mg). We deemed you safe for discharge, and you got a bed at [facility]. We hope you are successful in detoxing. We are always here, so please come back with any new or worsening symptoms. - Post Discharge Activity
== END 2020-07-28 20:00 | disposition home or self-care (01) ==
LOC: JER 14:41
DX: F10.920 Alcohol use, unspecified with intoxication, uncomplicated (principal)
CPT/HCPCS: 70450-TC; 82962; 99284-25

== ENCOUNTER 2020-07-29 00:11 | Emergency (ER) | payer OTHER ==
[2020-07-29 00:14] VITALS: BMI 22.9
--- NOTE | 2020-07-29 00:25 | PDOC ---
History of Present Illness - General Chief Complaint: Alcohol intoxication Stated Complaint: INTOX Time Seen by Provider: 07/29/20 00:25 Past History - Medical History Allergies/Adverse Reactions: Allergies Allergy/AdvReac Type Severity Reaction Status Date / Time RASHAD Inhibitors Allergy Severe Swelling Verified 07/29/20 00:14 lisinopril Allergy Severe Swelling Verified 07/29/20 00:14 Home Medications: Ambulatory Orders Gemfibrozil 600 mg PO BID 05/27/19 Aspirin [ASA -] 81 mg PO DAILY #30 tab.chew 07/19/19 Atenolol [Tenormin -] 100 mg PO DAILY 14 Days #14 tablet 07/19/19 levETIRAcetam [Keppra -] 500 mg PO BID #60 tablet 07/19/19 metFORMIN HCL [Glucophage -] 500 mg PO BID@0700,1630 11/18/19 Anemia: No Asthma: No Cancer: No Cardiac Disorders: No CVA: No COPD: No CHF: No Dementia: No Diabetes: Yes GI Disorders: No Disorders: No HTN: Yes Hypercholesterolemia: Yes (Gemfibra) Kidney Stones: No Liver Disease: No Psychiatric Problems: Yes (etoh/) Seizures: Yes (pt on Keppra, last episode of seizure was 5 mos ago) Thyroid Disease: No - Surgical History Abdominal Surgery: No Appendectomy: No Cardiac Surgery: No Cholecystectomy: No Lung Surgery: No Neurologic Surgery: No Orthopedic Surgery: No - Reproductive History Testicular Surgery: No - Immunization History Immunization Up to Date: No - Psycho-Social/Smoking History Smoking History: Unknown if ever smoked Have you smoked in the past 12 months: No Number of Cigarettes Smoked Daily: 0 If you are a former smoker, when did you quit?: at age 19 Cigars Per Day: 0 Information on smoking cessation initiated: No 'Breaking Loose' booklet given: 01/31/19 - Substance Abuse Hx (Audit-C & DAST Scrn) How often the patient has a drink containing alcohol: Never Score: In Men: 4 or > Positive; In Women: 3 or > Positive: 0 Screen Result (Pos requires Nsg. Audit-10AR): Negative In the last yr the pt used illegal drug/Rx for NonMed reason: No Score: Yes response is considered Positive: 0 Screen Result (Positive result requires Nsg. DAST-10): Negative *Physical Exam - Vital Signs Last Vital Signs Temp Pulse Resp BP Pulse Ox 98.6 F 72 16 143/92 98 07/29/20 00:12 07/29/20 00:12 07/29/20 00:12 07/29/20 00:12 07/29/20 00:12 ED Treatment Course - RADIOLOGY Radiology Studies Ordered: Category Date Time Status CERVICAL SPINE CT W/O CONTR [CT] Stat CT Scan 07/29/20 00:[address] WITHOUT CONTRAST [CT] Stat CT Scan 07/29/20 00:19 Ordered
--- NOTE | 2020-07-29 00:40 | PDOC ---
History of Present Illness - General Chief Complaint: Alcohol intoxication Stated Complaint: INTOX Time Seen by Provider: 07/29/20 00:25 - History of Present Illness Initial Comments: 07/29/20 00:40 55M with PMH of etoh abuse, seizure disorder, DM sent here by [facility] due to heavy intoxication. He was recently discharged late yesterday after negative CT scans. Pt sent back from [facility] for continued intoxication. On initial eval, pt was sleeping, and would not cooperate with assessment. Meds: In chart Allergies: RASHAD inhibitors ROS: pt would not cooperate PE: GENERAL: sleeping; minimally responsive to voice HEAD: NC/AT NECK: Normal ROM, supple, no LAD, JVD, or masses CARDIO: RRR, normal S1/S2, no murmurs, rubs, or gallops. LUNGS: No distress, speaks full sentences, CTA bilaterally EXTREMITIES: Normal inspection, Normal range of motion, no edema. Assessment and Plan 1. r/o intracranial pathology Margarito Gaitan, PGY1 Emergency Medicine Past History - Medical History Allergies/Adverse Reactions: Allergies Allergy/AdvReac Type Severity Reaction Status Date / Time RASHAD Inhibitors Allergy Severe Swelling Verified 07/29/20 00:14 lisinopril Allergy Severe Swelling Verified 07/29/20 00:14 Home Medications: Ambulatory Orders Gemfibrozil 600 mg PO BID 05/27/19 Aspirin [ASA -] 81 mg PO DAILY #30 tab.chew 07/19/19 Atenolol [Tenormin -] 100 mg PO DAILY 14 Days #14 tablet 07/19/19 levETIRAcetam [Keppra -] 500 mg PO BID #60 tablet 07/19/19 metFORMIN HCL [Glucophage -] 500 mg PO BID@0700,1630 11/18/19 Anemia: No Asthma: No Cancer: No Cardiac Disorders: No CVA: No COPD: No CHF: No Dementia: No Diabetes: Yes GI Disorders: No Disorders: No HTN: Yes Hypercholesterolemia: Yes (Gemfibra) Kidney Stones: No Liver Disease: No Psychiatric Problems: Yes (etoh/) Seizures: Yes (pt on Keppra, last episode of seizure was 5 mos ago) Thyroid Disease: No - Surgical History Abdominal Surgery: No Appendectomy: No Cardiac Surgery: No Cholecystectomy: No Lung Surgery: No Neurologic Surgery: No Orthopedic Surgery: No - Reproductive History Testicular Surgery: No - Immunization History Immunization Up to Date: No - Psycho-Social/Smoking History Smoking History: Unknown if ever smoked Have you smoked in the past 12 months: No Number of Cigarettes Smoked Daily: 0 If you are a former smoker, when did you quit?: at age 19 Cigars Per Day: 0 Information on smoking cessation initiated: No 'Breaking Loose' booklet given: 01/31/19 - Substance Abuse Hx (Audit-C & DAST Scrn) How often the patient has a drink containing alcohol: Never Score: In Men: 4 or > Positive; In Women: 3 or > Positive: 0 Screen Result (Pos requires Nsg. Audit-10AR): Negative In the last yr the pt used illegal drug/Rx for NonMed reason: No Score: Yes response is considered Positive: 0 Screen Result (Positive result requires Nsg. DAST-10): Negative *Physical Exam - Vital Signs Last Vital Signs Temp Pulse Resp BP Pulse Ox 98.6 F 72 16 143/92 98 07/29/20 00:12 07/29/20 00:12 07/29/20 00:12 07/29/20 00:12 07/29/20 00:12 Medical Decision Making - Medical Decision Making 07/29/20 01:16 55M with PMH of etoh abuse, seizure disorder, DM sent back here by [facility]. Recently discharged. -> will repeat head and c-spine CT 07/29/20 01:41 CT c-spine neg for fracture. CT head neg for intracranial 07/29/20 01:54 Pt still would not cooperate with exam. 07/29/20 06:34 Patient responsive to voice, follows commands. Pt was able to demonstrate ambulation to bathroom. Discharge - Discharge Information Problems reviewed: Yes Clinical Impression/Diagnosis: Alcohol abuse Condition: Improved - Admission No - Follow up/Referral - Patient Discharge Instructions Patient Printed Discharge Instructions: DI for Alcohol Use Disorder Additional Instructions: You were seen in the emergency department for alcohol intoxication. Your CT scans were normal. Please follow up with your primary care physician aregarding your visit to the emergency department. If you experience profound tremors, seizures, or passing out please return to the emergency department or call 911. - Post Discharge Activity
--- OUTSIDE RECORDS SUMMARY | 2020-07-29 00:48 | XMS ---
:1965 Author Organization [facility] Care Team Providers Name Role Phone ED STAFF PHYSICIAN, STAFF Unavailable Unavailable BENNIE BARONE Unavailable Unavailable ED STAFF PHYSICIAN Unavailable Unavailable Re-disclosure Warning The records that [...] is protected by Article 27-F of the [facility] Public Health law. If you continue you may haveaccess to information: Regarding HIV / AIDS; Provided by facilities licensed or operated by the [facility] Office of Mental Health; or Provided by the [facility] Office for People With Developmental Disabilities. If such information is present, then the following [facility] mandated warning applies: This information has [...] law may result in a fine or longterm sentence or both. A general authorization for the release of medical or other information is NOT sufficient authorization for further disclosure. Encounters Encounter Providers Location Date Indications Data Source(s ) Emergency Attender: ED STAFF H 11/13/2019 [facility] PHYSICIANAttender: 09:39:00 PM EST [facility] STAFF ED STAFF - 11/14/2019 PHYSICIANAdmitter: 03:09:00 AM EST ED STAFF PHYSICIAN Patient discharged. Emergency Attender: BENNIE Lara 09/07/2019 03:24 :00 PM [facility] CAttender: STAFF ED STAFF EST - 09/07/2019 [facility] PHYSICIANAdmitter: BENNIE 07:07:00 PM EST [facility] Patient discharged. Insurance Providers Payer name Policy type Policy ID Covered Covered democrat's Policy P man / Coverage democrat ID relationship to Cash Inf ormation type cash BEACON [id number] SP [id number] [employer] MET[place] PLUS [id number] SP [id number] HEALTH PLAN BEACON [id number] SP [id number] [employer] MEDICAID [id number] SP [id number] HEALTH FIRST [id number] SP [id number] H BEACON [id number] SP [id number] METROPLUS METROPLUS W [id number] 01 [id number] BEACON [id number] SP [id number] METROP[employer]US O [id number] 01 [id number] METRO PLUS [id number] SP [id number] HEALTH PLAN UNHC MEDICAID [id number] SP [id number] COMM PLAN MEDICAID [id number] SP [id number] HEALTH FIRST [id number] SP [id number] H W [id number] 01 [id number] HMO DEL O [id number] 01 [id number] [employer] Problems, Conditions, and Diagnoses Code Display Name Description Problem Type Effective Data Dates Source(s) I10 Essential ESSENTIAL Diagnosis 11/13/2019 [facility] (primary) (PRIMARY) 09:39:00 PM Medical hypertension HYPERTENSION EST Center E11.9 Type 2 diabetes TYPE 2 DIABETES Diagnosis 11/13/2019 [facility] mellitus without MELLITUS WITHOUT 09:39:00 PM M edical complications COMPLICATIONS EST Center F10.129 Alcohol abuse with ALCOHOL ABUSE WITH Diagnosis 0 [facility] intoxication, INTOXICATION, 09:39:00 PM Medical unspecified UNSPECIFIED EST Center T65.91XA Toxic effect of TOXIC EFFECT OF Diagnosis 11/13/2019 [facility] unspecified UNSP SUBSTANCE, 09:39:00 PM Medical substance, ACCIDENTAL, INIT EST Center accidental (unintentional), initial encounter Z72.0 Tobacco use TOBACCO USE Diagnosis 09/07/2019 [facility] short 03:24:00 PM Medical EST Center E78.5 Hyperlipidemia, HYPERLIPIDEMIA, Diagnosis 09/07/2019 [facility] unspecified UNSPECIFIED 03:24:00 PM Medical [facility] Center Results ID Date Data Source [id number] 07/14/2020 03:00:00 AM EDT [facility] Name Value Range Interpretation Description Data Sup porting Code Source(s) Document(s ) SARS-CoV-2 [facility] Reportable This lab was ordered by [facility] and reported by [facility]. ID Date Data Source [id number] 07/10/2020 08:03:00 AM EDT [facility] Name Value Range Interpretation Code Description Data Yolette rce(s) Supporting Document(s ) SARS-CoV-2 [facility] RNA [facility] Ql MAYKEL+probe This lab was ordered by [facility] nd reported by [facility]. ID Date Data Source [id number] 06/08/2020 10:45:00 PM EDT [facility] Name Value Range Interpretation Description Data Sup porting Code Source(s) Document(s ) SARS [facility] coronavirus 2 RNA This lab was ordered by [facility] and reported by [facility]. ID Date Data Source [id number] 04/05/2020 02:28:00 AM EDT [facility] Name Value Range Interpretation Code Description Data Yolette rce(s) Supporting Document(s ) SARS-COV-2 [facility] PCR This lab was ordered by [facility] and reported by [facility]. ID Date Data Source [id number] 03/22/2020 05:43:00 AM EDT [facility] Name Value Range Interpretation Description Data Sup porting Code Source(s) Document(s ) SARS [facility] CORONAVIRUS 2 RNA This lab was ordered by [facility] and reported by [facility]. ID Date Data Source [id number] 03/07/2020 12:00:00 AM EDT [facility] Name Value Range Interpretation Code Description Data Yolette rce(s) Supporting Document(s ) SARS-CoV-2 [facility] RNA Resp Ql MAYKEL+probe This lab was ordered by [facility] and reported by [facility]. ID Date Data Source [id number] 02/04/2020 10:44:00 AM EDT [facility] Name Value Range Interpretation Description Data Sup porting Code Source(s) Document(s ) SARS-CoV-2 [facility] Reportable This lab was ordered by [facility] and reported by [facility]. ID Date Data Source [id number] 02/02/2020 03:32:00 PM EDT [facility] Name Value Range Interpretation Description Data Sup porting Code Source(s) Document(s ) SARS-CoV-2 [facility] Reportable This lab was ordered by [facility] and reported by [facility]. ID Date Data Source [id number] 01/31/2020 06:00:00 AM EDT [facility] Name Value Range Interpretation Description Data Sup porting Code Source(s) Document(s ) SARS-CoV-2 [facility] Reportable This lab was ordered by [facility] and reported by [facility]. ID Date Data Source [id number] 01/15/2020 12:00:00 AM EDT [facility] Name Value Range Interpretation Code Description Data Yolette rce(s) Supporting Document(s ) 2019-nCoV [facility] RNA XXX MAYKEL+probe- Imp [facility] lab [facility] and reported by [employer]. ID Date Data Source [id number] 01/10/2020 12:00:00 AM EDT [facility] Name Value Range Interpretation Code Description Data Yolette rce(s) Supporting Document(s ) 2018-nCoV [facility] RNA XXX MAYKEL+probe- Imp [facility] and reported by [employer] Procedure Social History Code Duration Value Status Description Data Source(s ) Smoking 11/13/2019 Occasional Smoker completed Occasional Smoker [facility] 10:42:00 PM EST Medical C enter Smoking 11/13/2019 Occasional Smoker completed Occasional Smoker [facility] 09:53:00 PM EST Medical C enter Smoking 11/13/2019 Occasional Smoker completed Occasional Smoker [facility] 09:44:00 PM EST Medical C enter Smoking 09/07/2019 Occasional Smoker completed Occasional Smoker [facility] 03:36:00 PM EST Medical C enter Smoking 09/07/2019 Occasional Smoker completed Occasional Smoker [facility] 03:32:00 PM EST Medical C enter Vital Signs ID Date Data Source UNK Name Value Range Interpretation Code Description Data Source(s) Body temperature 36.725999 36.603306 [facility] Respiratory rate 18 /min 18 /min [facility] Oxygen saturation 99 % 99 % [facility] blood [facility] by Pulse oximetry Heart rate 86 /min 86 /min [facility] Diastolic blood 72 mm[Hg] 72 mm[Hg] [facility] Systolic blood 124 mm[Hg] 124 mm[Hg] [facility] Body temperature 36.906457 36.326408 [facility] Respiratory rate 18 /min 18 /min [facility] Oxygen saturation 96 % 96 % [facility] by Pulse oximetry Heart rate 96 /min 96 /min [facility] Diastolic blood 66 mm[Hg] 66 mm[Hg] [facility] Systolic blood 121 mm[Hg] 121 mm[Hg] [facility] Body temperature 36.422784 36.442220 [facility] Respiratory rate 18 /min 18 /min [facility] Oxygen saturation 99 % 99 % [facility] by Pulse oximetry Heart rate 100 /min 100 /min [facility] Diastolic blood 70 mm[Hg] 70 mm[Hg] [facility] Systolic blood 111 mm[Hg] 111 mm[Hg] [facility] Body weight 99.974929 kg 99.412044 kg [facility] Body temperature 36.017893 36.610087 [facility] Respiratory rate 18 /min 18 /min [facility] Oxygen saturation 99 % 99 % [facility] by Pulse oximetry Heart rate 102 /min 102 /min [facility] Body height 172.652159 172.464232 [facility] Diastolic blood 77 mm[Hg] 77 mm[Hg] [facility] Systolic blood 141 mm[Hg] 141 mm[Hg] [facility] pressure [facility] Body mass index 33.4 kg/m2 33.4 kg/m2 [facility] (BMI) [Ratio] Medical [facility]
--- NOTE | 2020-07-29 00:56 | PDOC ---
Attending Attestation - Resident Resident Name: Margarito Gaitan - ED Attending Attestation I have performed the following: I have examined & evaluated the patient, The case was reviewed & discussed with the resident, I agree w/resident's findings & plan - HPI HPI: 07/29/20 01:29 see resident hpi - Physicial Exam PE: 07/29/20 01:30 see resident exam - Medical Decision Making 07/29/20 01:30 55-year-old male sent back from detox after consuming more alcohol and arriving intoxicated to the intake center Plan for CT scan head and and cervical spine Will observe in the emergency department with plans for DC back to detox when clinically sober Discharge - Discharge Information Problems reviewed: Yes Clinical Impression/Diagnosis: Alcohol abuse - Follow up/Referral - Patient Discharge Instructions - Post Discharge Activity
[2020-07-29 03:56] VITALS: TEMP 97.9
[2020-07-29 06:47] VITALS: BP 150/84; PULSE 85
== END 2020-07-29 06:51 ==
LOC: JER 00:11
DX: F10.10 Alcohol abuse, uncomplicated (principal)
CPT/HCPCS: 70450-TC; 72125-TC; 82962; 99284-25

== ENCOUNTER 2020-07-29 08:43 | Inpatient (IN) | payer OTHER ==
--- OUTSIDE RECORDS SUMMARY | 2020-07-29 08:47 | XMS ---
[...] is protected by Article 27-F of the [facility] Public Health law. If you continue you may haveaccess to information: Regarding HIV / AIDS; Provided by facilities licensed or operated by the [facility] Office of Mental Health; or Provided by the [facility] Office for People With Developmental Disabilities. If such information is present, then the following [facility] mandated warning applies: This information has [...] law may result in a fine or fdc sentence or both. A general authorization for [...] to Cash Inf ormation type cash BEACON [id number] SP [id number] [employer] MET[place] PLUS [id number] SP [id number] HEALTH PLAN METRO PLUS [id number] SP [id number] HEALTH PLAN BEACON [id number] SP [id number] [employer] MEDICAID [id number] SP [id number] HEALTH FIRST [id number] SP [id number] BEACON [id number] SP [id number] [employer] METROPLUS W [id number] 01 [id number] BEACON [id number] SP [id number] MET[employer]OP[place]US O [id number] 01 [id number] METRO PLUS [id number] SP [id number] HEALTH PLAN UNHC MEDICAID [id number] SP [id number] [facility] PLAN MEDICAID [id number] SP [id number] HEALTH FIRST [id number] SP [id number] H W [id number] 01 [id number] HMO DEL O [id number] 01 [id number] [facility] Problems, Conditions, and Diagnoses Code Display Name Description Problem Type Effective Data Dates Source(s) I10 Essential ESSENTIAL Diagnosis 11/13/2019 [facility] (primary) (PRIMARY) 09:39:00 PM Medical hypertension HYPERTENSION EST Center E11.9 Type 2 diabetes TYPE 2 DIABETES Diagnosis 11/13/2019 Ash yancy Costello mellitus without MELLITUS WITHOUT 09:39:00 PM [...] 09/07/2019 [facility] Costello unspecified UNSPECIFIED 03:24:00 PM [facility] Center Results ID Date Data Source [id number] 07/14/2020 03:00:00 AM EDT [facility] Name Value Range Interpretation Description Data Sup porting Code Source(s) Document(s ) SARS-CoV-2 [facility] Reportable This lab was ordered by [facility] and reported by [facility]. ID Date Data Source [id number] 07/10/2020 08:03:00 AM EDT [facility] Name Value Range Interpretation Code Description Data Yolette rce(s) Supporting Document(s ) SARS-CoV-2 [facility] RNA [facility] Ql MAYKEL+probe This lab was ordered by [facility] nd reported by [facility]. ID Date Data Source [id number] 06/08/2020 10:45:00 PM EDT [facility] Name Value Range Interpretation Description Data Sup porting Code Source(s) Document(s ) SARS [facility] coronavirus 2 RNA This lab was ordered by [facility] trevon Javier and reported by [facility]. ID Date Data Source [id number] 04/05/2020 02:28:00 AM EDT [facility] Name Value Range Interpretation Code Description Data Yolette rce(s) Supporting Document(s ) SARS-COV-2 [facility] PCR This lab was ordered by JOE BRINK and reported by [facility]. ID Date Data Source [id number] 03/22/2020 05:43:00 AM EDT [facility] Name Value Range Interpretation Description Data Sup porting Code Source(s) Document(s ) SARS [facility] CORONAVIRUS 2 RNA This lab was ordered by [facility] and reported by [facility]. ID Date Data Source [id number] 03/07/2020 12:00:00 AM EDT [facility] Name Value Range Interpretation Code Description Data Yolette rce(s) Supporting Document(s ) SARS-CoV-2 [facility] RNA Resp Ql MAYKEL+probe This lab was ordered by [facility] and reported by [facility]. ID Date Data Source [id number] 02/04/2020 10:44:00 AM EDT [facility] Name Value Range Interpretation Description Data Sup porting Code Source(s) Document(s ) SARS-CoV-2 [facility] Reportable This lab was ordered by Osmani Carrera al and reported by [facility]. ID Date Data Source [id number] 02/02/2020 03:32:00 PM EDT [facility] Name Value Range Interpretation Description Data Sup porting Code Source(s) Document(s ) SARS-CoV-2 [facility] Reportable This lab was ordered by Osmani Carrera al and reported by [facility]. ID Date Data Source [id number] 01/31/2020 06:00:00 AM EDT [facility] Name Value Range Interpretation Description Data Sup porting Code Source(s) Document(s ) SARS-CoV-2 [facility] Reportable This lab was ordered by Osmani Carrera al and reported by [facility]. ID Date Data Source [id number] 01/15/2020 12:00:00 AM EDT [facility] Name Value Range Interpretation Code Description Data Yolette rce(s) Supporting Document(s ) 2018-nCoV [facility] RNA XXX MAYKEL+probe- Imp [facility] and reported by [employer] ID Date Data Source [id number] 01/10/2020 12:00:00 AM EDT [facility] Name Value Range Interpretation Code Description Data Yolette rce(s) Supporting Document(s ) 2018-nCoV [facility] RNA XXX MAYKEL+probe- Imp [facility] and reported by [employer] Procedure Social History Code Duration Value Status Description Data Source(s ) Smoking 11/13/2019 Occasional Smoker completed Occasional Smoker [facility] 10:42:00 PM EST Medical C enter Smoking 11/13/2019 Occasional Smoker completed Occasional Smoker [facility] 09:53:00 PM EST Medical C enter Smoking 11/13/2019 Occasional Smoker completed Occasional Smoker [facility] 09:44:00 PM EST Medical C enter Smoking 09/07/2019 Occasional Smoker completed Occasional Smoker [facility] 03:36:00 PM EST Medical C enter Smoking 09/07/2019 Occasional Smoker completed Occasional Smoker [facility] 03:32:00 PM EST Medical C enter Vital Signs ID Date Data Source UNK Name Value Range Interpretation Code Description Data Source(s) Body temperature 36.915394 36.844099 [facility] Respiratory rate 18 /min 18 /min [facility] Oxygen saturation 99 % 99 % [facility] blood [facility] by Pulse oximetry Heart rate 86 /min 86 /min [facility] Diastolic blood 72 mm[Hg] 72 mm[Hg] [facility] Systolic blood 124 mm[Hg] 124 mm[Hg] [facility] Body temperature 36.496850 36.105343 [facility] Respiratory rate 18 /min 18 /min [facility] Oxygen saturation 96 % 96 % [facility] by Pulse oximetry Heart rate 96 /min 96 /min [facility] Diastolic blood 66 mm[Hg] 66 mm[Hg] [facility] Systolic blood 121 mm[Hg] 121 mm[Hg] [facility] Body temperature 36.217919 36.261241 [facility] Respiratory rate 18 /min 18 /min [facility] Oxygen saturation 99 % 99 % [facility] blood [facility] by Pulse oximetry Heart rate 100 /min 100 /min [facility] Diastolic blood 70 mm[Hg] 70 mm[Hg] [facility] Systolic blood 111 mm[Hg] 111 mm[Hg] [facility] Body weight 99.209236 kg 99.604076 kg [facility] Body temperature 36.418511 36.201884 [facility] Respiratory rate 18 /min 18 /min [facility] Oxygen saturation 99 % 99 % [facility] by Pulse oximetry Heart rate 102 /min 102 /min [facility] Body height 172.238906 172.997662 cm [facility] cm Medical Center Diastolic blood 77 mm[Hg] 77 mm[Hg] [facility] pressure [facility] Center Systolic blood 141 mm[Hg] 141 mm[Hg] [facility] pressure Medical Center Body mass index 33.4 kg/m2 33.4 kg/m2 [facility] (BMI) [Ratio] Medical [facility] ter
--- NOTE | 2020-07-29 09:42 | BHS.RME ---
2019 N Coronavirus Screen - COVID-19 Screening Questions Dx of COVID-19 or had a positive test in the last 4 weeks?: No Contact with known/suspected COVID patient in last 14 days?: No Any of these symptoms or contact with someone who has?: None Traveled domestically/internationally in the last 14 days?: No Screen score: 0 Screen result: Further Evaluation Substance Use & Tx History - Substance Use History Alcohol Substance amount: 1 pint vodka _3 beers Frequency of use: Daily Substance route: Oral Date of Last Use: 07/28/20 (started age 45) Physical/Psych/Mental Status - Behavior General Behavior: Decreased activity Eye Contact: Normal - Cooperativeness Cooperativeness: Cooperative - Thinking Thought Processes: Tight, Logical, Goal Directed - Physical Health Problems Is patient presently having any pain?: No Does patient presently have any injuries (include location): No Does patient currently have a fever: No Is patient : No CIWA Nausea/Vomitin-Mild Nausea/No Vomiting Muscle Tremors: 2 Anxiety: 1-Mildly Anxious Agitation: 1-Slight > Activity Paroxysmal Sweats: 1-Minimal Palms Moist Orientation: 3-Disoriented Date>2 days Tacttile Disturbances: 0-None Auditory Disturbances: 0-None Visual Disturbances: 0-None (patient still intoxicated and not yet in full withdrawals) Headache: 2-Mild CIWA-Ar Total Score: 11
[2020-07-29 10:07] VITALS: BMI 30.9
--- OUTSIDE RECORDS SUMMARY | 2020-07-29 10:40 | XMS ---
[...] is protected by Article 27-F of the [facility] Public Health law. If you continue you may haveaccess to information: Regarding HIV / AIDS; Provided by facilities licensed or operated by the [facility] Office of Mental Health; or Provided by the [facility] Office for People With Developmental Disabilities. If such information is present, then the following [facility] mandated warning applies: This information has been [...] law may result in a fine or shelter sentence or both. A general authorization for [...] name Policy type Policy ID Covered Covered alliance party's Policy P man / Coverage alliance party ID relationship to Cash Inf ormation type cash BEACON [id number] SP [id number] [employer] PLUS [id number] SP [id number] HEALTH PLAN METRO PLUS [id number] SP [id number] HEALTH PLAN BEACON [id number] SP [id number] [employer] MEDICAID [id number] SP [id number] HEALTH FIRST [id number] SP [id number] BEACON [id number] SP [id number] [employer] METROPLUS W [id number] 01 [id number] BEACON [id number] SP [id number] MET[employer]US O [id number] 01 [id number] METRO PLUS [id number] SP [id number] HEALTH PLAN UNHC MEDICAID [id number] SP [id number] [facility] PLAN MEDICAID [id number] SP [id number] HEALTH FIRST [id number] SP [id number] H W [id number] 01 [id number] HMO DEL O [id number] 01 [id number] [facility] Problems, Conditions, and Diagnoses Code Display [...] 09/07/2019 Ash Costello unspecified UNSPECIFIED 03:24:00 PM [facility] Results ID Date Data Source [id number] 07/14/2020 03:00:00 AM EDT [facility] Name Value Range Interpretation Description Data Sup porting Code Source(s) Document(s ) SARS-CoV-2 [facility] Reportable This lab was ordered by [facility] and reported by [facility]. ID Date Data Source [id number] 07/10/2020 08:03:00 AM EDT [facility] Name Value Range Interpretation Code Description Data Yolette rce(s) Supporting Document(s ) SARS-CoV-2 [facility] RNA [facility] Ql MAYKEL+probe This lab was ordered by [facility] nd reported by [facility]. ID Date Data Source [id number] 06/08/2020 10:45:00 PM EDT [facility] Name Value Range Interpretation Description Data Sup porting Code Source(s) Document(s ) SARS [facility] coronavirus 2 RNA This lab was ordered by [facility] trevon Javier and reported by [facility]. ID Date Data Source [id number] 04/05/2020 02:28:00 AM EDT [facility] Name Value Range Interpretation Code Description Data Yolette rce(s) Supporting Document(s ) SARS-COV-2 [facility] PCR This lab was ordered by JOE BRINK and reported by [facility]. ID Date Data Source [id number] 03/22/2020 05:43:00 AM EDT [facility] Name Value Range Interpretation Description Data Sup porting Code Source(s) Document(s ) SARS [facility] CORONAVIRUS 2 RNA This lab was ordered by [facility] and reported by [facility]. ID Date Data Source [id number] 03/07/2020 12:00:00 AM EDT [facility] Name Value Range Interpretation Code Description Data Yolette rce(s) Supporting Document(s ) SARS-CoV-2 [facility] RNA Resp Ql MAYKEL+probe This lab was ordered by [facility] and reported by [facility]. ID Date Data Source [id number] 02/04/2020 10:44:00 AM EDT [facility] Name Value Range Interpretation Description Data Sup porting Code Source(s) Document(s ) SARS-CoV-2 [facility] Reportable This lab was ordered by Osmani Carrera al and reported by [facility]. ID Date Data Source [id number] 02/02/2020 03:32:00 PM EDT [facility] Name Value Range Interpretation Description Data Sup porting Code Source(s) Document(s ) SARS-CoV-2 [facility] Reportable This lab was ordered by Osmani Carrera al and reported by [facility]. ID Date Data Source [id number] 01/31/2020 06:00:00 AM EDT [facility] Name Value Range Interpretation Description Data Sup porting Code Source(s) Document(s ) SARS-CoV-2 [facility] Reportable This lab was ordered by Osmani Carrera al and reported by [facility]. ID Date Data Source [id number] 01/15/2020 12:00:00 AM EDT [facility] Name Value Range Interpretation Code Description Data Yolette rce(s) Supporting Document(s ) 2018-nCoV [facility] RNA XXX MAYKEL+probe- Imp This lab was ordered by [facility] and reported by [employer] ID Date Data Source [id number] 01/10/2020 12:00:00 AM EDT [facility] Name Value Range Interpretation Code Description Data Yolette rce(s) Supporting Document(s ) 2018-nCoV [facility] RNA XXX MAYKEL+probe- Imp This lab was [facility] and reported by [employer] Procedure Social History Code Duration Value Status Description Data Source(s ) Smoking 11/13/2019 Occasional Smoker completed Occasional Smoker [facility] 10:42:00 PM EST Medical C enter Smoking 11/13/2019 Occasional Smoker completed Occasional Smoker [facility] 09:53:00 PM EST Medical C enter Smoking 11/13/2019 Occasional Smoker completed Occasional Smoker [facility] 09:44:00 PM EST Medical C enter Smoking 09/07/2019 Occasional Smoker completed Occasional Smoker [facility] 03:36:00 PM EST Medical C enter Smoking 09/07/2019 Occasional Smoker completed Occasional Smoker [facility] 03:32:00 PM EST Medical C enter Vital Signs ID Date Data Source UNK Name Value Range Interpretation Code Description Data Source(s) Body temperature 36.104411 36.919398 [facility] Respiratory rate 18 /min 18 /min [facility] Oxygen saturation 99 % 99 % [facility] blood [facility] by Pulse oximetry Heart rate 86 /min 86 /min [facility] Diastolic blood 72 mm[Hg] 72 mm[Hg] [facility] Systolic blood 124 mm[Hg] 124 mm[Hg] [facility] Body temperature 36.682259 36.052949 [facility] Respiratory rate 18 /min 18 /min [facility] Oxygen saturation 96 % 96 % [facility] by Pulse oximetry Heart rate 96 /min 96 /min [facility] Diastolic blood 66 mm[Hg] 66 mm[Hg] [facility] Systolic blood 121 mm[Hg] 121 mm[Hg] [facility] Body temperature 36.026965 36.074618 [facility] Respiratory rate 18 /min 18 /min [facility] Oxygen saturation 99 % 99 % [facility] blood [facility] by Pulse oximetry Heart rate 100 /min 100 /min [facility] Diastolic blood 70 mm[Hg] 70 mm[Hg] [facility] Systolic blood 111 mm[Hg] 111 mm[Hg] [facility] Body weight 99.755564 kg 99.920100 kg [facility] Body temperature 36.547579 36.452485 [facility] Respiratory rate 18 /min 18 /min [facility] Oxygen saturation 99 % 99 % [facility] by Pulse oximetry Heart rate 102 /min 102 /min [facility] Body height 172.054047 172.525487 cm [facility] cm [facility] Center Diastolic blood 77 mm[Hg] 77 mm[Hg] [facility] pressure Medical Center Systolic blood 141 mm[Hg] 141 mm[Hg] [facility] pressure Medical Center Body mass index 33.4 kg/m2 33.4 kg/m2 [facility] (BMI) [Ratio] Medical [facility] ter
--- NOTE | 2020-07-29 10:47 | HP ---
CIWA Score Nausea/Vomitin-Mild Nausea/No Vomiting Muscle Tremors: 2 Anxiety: 1-Mildly Anxious Agitation: 1-Slight > Activity Paroxysmal Sweats: 1-Minimal Palms Moist Orientation: 3-Disoriented Date>2 days Tacttile Disturbances: 0-None Auditory Disturbances: 0-None Visual Disturbances: 0-None (patient still intoxicated and not yet in full wit hdrawals) Headache: 2-Mild CIWA-Ar Total Score: 11 - Admission Criteria [facility]ASAS Guidelines: Admission for Medically Managed Detox: Requires at least one of the followin. CIWA greater than 12 2. Seizures within the past 24 hours 3. Delirium tremens within the past 24 hours 4. Hallucinations within the past 24 hours 5. Acute intervention needed for co occurring medical disorder 6. Acute intervention needed for co occurring psychiatric disorder 7. Severe withdrawal that cannot be handled at a lower level of care (continued vomiting, continued diarrhea, abnormal vital signs) requiring intravenous medication and/or fluids 8. Admitting History and Physical - Admission Chief Complaint: Mr. Jade is a 55 yo man who presents to [facility] requesting admission to detox for alcohol use disorder. History of Present Illness: Mr. Jade is a 55 yo man who presents to [facility] requesting admission to detox for alcohol use disorder. He was here twice yesterday, intoxicated and sent to the ED at [facility]. Review of the ED record 07/[address] of your head, due to your reports of falling multiple times. We also tested your blood sugar and gave you your normal dose of keppra (500mg). CT head 07/28: no acute pathology, chronic microvascular ischemic changes. Review of outside records, multiple visits to detox/ED facilities. PMH: HLD, DM, seizure disorder PSH: none Psych: none SOC: homeless/streets Legal: none Substance Use History Alcohol Substance amount: 1 pint vodka _3 beers Frequency of use: Daily Substance route: Oral Date of Last Use: 07/28/20 (started age 45) Alcohol withdrawal seizures Blackouts: yesterday Admits to eye bale opener Nicotine: quit in the 80s Benzo: suspect that the UDS benzo reflects a recent hospital visit/tx History Source: Patient Limitations to Obtaining History: Intoxication - Past Medical History Cardiovascular: Yes: PR Hepatobiliary: Yes: Other (Pt states elevated LFTs) Psych: Yes: Anxiety, Panic Musculoskeletal: Yes: Chronic low back pain, Other (states he fell a few months ago and, since, has had low back pain) Endocrine: Yes: Diabetes Mellitus - Smoking History Smoking history: Unknown if ever smoked Have you smoked in the past 12 months: No Aproximately how many cigarettes per day: 0 If you are a former smoker, when did you quit?: at age 19 - Alcohol/Substance Use Hx Alcohol Use: Yes Number of Drinks Daily: 16 (hard liquor, beer) History of Substance Use: reports: Cocaine (last used in 2006) Date of Last Use: 07/14/19 - Social History ADL: Independent 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, 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 History of Recent Travel: No Admission [facility] Allergies/Adverse Reactions: Allergies Allergy/AdvReac Type Severity Reaction Status Date / Time RASHAD Inhibitors Allergy Severe Swelling Verified 07/29/20 00:14 lisinopril Allergy Severe Swelling Verified 07/29/20 00:14 Exam Limitations: Intoxication - Ebola screening Have you traveled outside of the country in the last 21 days: No Have you been sick,other than usual withdrawal symptoms: No Do you have a fever: No - Review of Systems Constitutional: No Symptoms Reported EENT: reports: No Symptoms Reported Respiratory: reports: No Symptoms reported Cardiac: reports: No Symptoms Reported GI: reports: No Symptoms Reported : reports: No Symptoms Reported Musculoskeletal: reports: No Symptoms Reported Integumentary: reports: Other (fell, right knee, details unknown) Neuro: reports: No Symptoms reported Endocrine: reports: No Symptoms Reported Hematology: reports: No Symptoms Reported Psychiatric: reports: No Sypmtoms Reported Patient History - Patient Medical History Hx Anemia: No Hx Asthma: No Hx Chronic Obstructive Pulmonary Disease (COPD): No Hx Cancer: No Hx Cardiac Disorders: No Hx Congestive Heart Failure: No Hx Hypertension: Yes Hx Hypercholesterolemia: Yes (Gemfibra) Hx Pacemaker: No HX Cerebrovascular Accident: No Hx Seizures: Yes (pt on Keppra, last episode of seizure was 5 mos ago) Hx Dementia: No Hx Diabetes: Yes Hx Gastrointestinal Disorders: No Hx Liver Disease: No Hx Genitourinary Disorders: No Hx Sexually Transmitted Disorders: No Hx Renal Disease (ESRD): No Hx Thyroid Disease: No Hx Human Immunodeficiency Virus (HIV): No (Negative 2018 in 09/01) Hx Hepatitis C: No Hx Depression: No Hx Suicide Attempt: No Hx Bipolar Disorder: No Hx Schizophrenia: No - Patient Surgical History Past Surgical History: Yes Hx Neurologic Surgery: No Hx Cataract Extraction: No Hx Cardiac Surgery: No Hx Lung Surgery: No Hx Breast Surgery: No Hx Breast Biopsy: No Hx Abdominal Surgery: No Hx Appendectomy: No Hx Cholecystectomy: No Hx Genitourinary Surgery: Yes (L kidney stone removed 2015) Hx Section: No Hx Orthopedic Surgery: No Other Surgical History: left nephrectomy 2015 Anesthesia Reaction: No - PPD History Results: cxray(-)07/14/19 - Smoking Cessation Smoking history: Unknown if ever smoked Have you smoked in the past 12 months: No Aproximately how many cigarettes per day: 0 If you are a former smoker, when did you quit?: at age 19 Cigars Per Day: 0 Hx Chewing Tobacco Use: No Initiated information on smoking cessation: No Admission Physical Exam [facility] - Physical General Appearance: Yes: Nourished, Appropriately Dressed, Disheveled, Intoxicated HEENTM: Yes: EOMI, Hearing grossly Normal, Normocephalic, Normal Voice Respiratory: Yes: Lungs Clear, No Respiratory Distress, No Accessory Muscle Use Neck: Yes: Within Normal Limits, Supple Breast: Yes: Breast Exam Deferred Cardiology: Yes: Regular Rhythm, Regular Rate Abdominal: Yes: Normal Bowel Sounds, Non Tender, Soft, Protuberent Back: Yes: Normal Inspection Musculoskeletal: Yes: full range of Motion Extremities: Yes: Non-Tender, Other (superficial abrasion right knee, old scars bilateral knees) Neurological: Yes: Other (follows commands, no UE drift, normal figner to nose, postural tremor) Integumentary: Yes: Other (intact except as noted above) - Diagnostic (1) Alcohol dependence with uncomplicated withdrawal Current Visit: No Status: Acute (2) DM2 (diabetes mellitus, type 2) Current Visit: Yes Status: Acute Qualifiers: (3) Frequent falls Current Visit: Yes Status: Chronic (4) Hyperlipemia Current Visit: No Status: Chronic Qualifiers: (5) Seizure disorder Current Visit: Yes Status: Chronic Cleared for Admission [facility] - Detox or Rehab [facility] Level of Care: Medically Managed Detox Regimen/Protocol: Ativan Breathalyzer - Breathalyzer Breathalyzer: 0.201 Urine Drug Screen - Test Device Lot number: [id number] Expiration date: 01/20/22 - Control Is test valid?: Yes - Results Drug screen NEGATIVE: No Urine drug screen results: BZO-Benzodiazepines Inpatient Rehab Admission - Rehab Decision to Admit Inpatient rehab admission?: No
[2020-07-29] MEDS ORDERED: BISMUTH SUBSALICYLATE 262 MG/15 ML BTL PO PRN (10:56)
[2020-07-29] MEDS ORDERED: NICOTINE POLACRILEX 2 MG GUM BUC PRN (10:56)
[2020-07-29] MEDS ORDERED: ACETAMINOPHEN 325 MG TABLET (FP) PO PRN ×2 (10:56)
[2020-07-29] MEDS ORDERED: ONDANSETRON *ODT* 4 MG TABLET SL PRN (10:56)
[2020-07-29] MEDS ORDERED: MAGNESIUM HYDROX 2400MG/30ML ORAL SUSPENSION 30 ML CUP PO PRN (10:56)
[2020-07-29] MEDS ORDERED: METHOCARBAMOL 500 MG TABLET PO PRN (10:56)
[2020-07-29] MEDS ORDERED: MAG HYDROX/AL HYDROX/SIMETH 30 ML UNIT-DOSE CUP PO PRN (10:56)
[2020-07-29] MEDS ORDERED: LORazepam 1 MG TABLET PO PRN (10:56)
[2020-07-29] MEDS ORDERED: IBUPROFEN 400 MG TABLET (FP) PO PRN (10:56)
[2020-07-29] MEDS ORDERED: MENTHOL/PHENOL 1 EACH UD MM PRN (10:56)
[2020-07-29] MEDS ORDERED: MAGNESIUM CITRATE 300 ML BOTTLE PO PRN (10:56)
[2020-07-29] MEDS: LORazepam 2 MG TABLET PO SCH ×3 (11:30→22:17)
[2020-07-29] MEDS: levETIRAcetam 500 MG TABLET (FP) PO SCH ×2 (11:30→22:17)
[2020-07-29] MEDS: ASPIRIN 81 MG CHEWABLE TABLETS PO SCH (11:30)
[2020-07-29] MEDS: GEMFIBROZIL 600 MG TABLET (FP) PO SCH ×2 (12:33→17:53)
[2020-07-29] MEDS: ATENOLOL 50 MG TABLET (FP) PO SCH ×2 (12:34→22:17)
[2020-07-29 12:43] LABS: HEMATOCRIT 33.7 % (35.4-49); HEMOGLOBIN 11.4 GM/dL (11.7-16.9); MCH 31.3 pg (25.7-33.7); MCHC 33.8 g/dl (32.0-35.9); MEAN CELL VOLUME 92.5 fl (80-96); MEAN PLT VOLUME 6.1 fl (7.5-11.1); PLATELET COUNT 387 K/MM3 (134-434); RBC 3.64 M/mm3 (4.00-5.60); RDW 14.8 % (11.9-15.9); WHITE BLOOD COUNT 3.2 K/mm3 (4.0-10.0)
[2020-07-29 13:22] LABS: ALBUMIN 3.5 g/dl (3.4-5.0); BILIRUBIN,TOTAL 0.7 mg/dL (0.2-1); BLOOD UREA NITROGEN 13.7 mg/dL (7-18); CALCIUM 8.1 mg/dL (8.5-10.1); CREATININE 0.8 mg/dL (0.55-1.3); POTASSIUM 3.5 mmol/L (3.5-5.1)
[2020-07-29] MEDS: hydrOXYzine PAMOATE 25 MG CAPSULE (FP) PO SCH ×3 (14:35→22:17)
[2020-07-29] MEDS: metFORMIN HCL 500 MG TABLET (FP) PO SCH (17:53)
[2020-07-29] MEDS: MELATONIN 5 MG TABLETS PO SCH (22:17)
[2020-07-29] MEDS: THIAMINE HCL 100 MG TABLET (FP) PO SCH (22:17)
[2020-07-30] MEDS: hydrOXYzine PAMOATE 25 MG CAPSULE (FP) PO SCH ×5 (05:31→22:34)
[2020-07-30] MEDS: LORazepam 2 MG TABLET PO SCH ×4 (05:31→22:34)
[2020-07-30] MEDS: metFORMIN HCL 500 MG TABLET (FP) PO SCH ×2 (07:00→18:11)
[2020-07-30] MEDS: GEMFIBROZIL 600 MG TABLET (FP) PO SCH ×2 (07:01→18:11)
[2020-07-30] MEDS ORDERED: PRENATAL VITAMINS W/ FOLIC ACID TABLET (FP) PO SCH (10:00)
[2020-07-30] MEDS ORDERED: NICOTINE 7 MG/24 HOURS TOPICAL PATCH TD SCH (10:00)
[2020-07-30] MEDS: ATENOLOL 50 MG TABLET (FP) PO SCH ×2 (10:32→22:37)
[2020-07-30] MEDS: ASPIRIN 81 MG CHEWABLE TABLETS PO SCH (10:32)
[2020-07-30] MEDS: levETIRAcetam 500 MG TABLET (FP) PO SCH ×2 (10:32→22:33)
--- NOTE | 2020-07-30 10:38 | PN ---
[facility] CIWA - CIWA Score Nausea/Vomitin-Mild Nausea/No Vomiting Muscle Tremors: 2 Anxiety: 2 Agitation: 2 Paroxysmal Sweats: No Perspiration Orientation: 0-Oriented Tacttile Disturbances: 1-Very Mild Itch/Numbness Auditory Disturbances: 0-None Visual Disturbances: 0-None Headache: 2-Mild CIWA-Ar Total Score: 10 S Progress Note (SOAP) Subjective: alert,irritable,anxious,interrupted sleep,aching pain,nausea Objective: 07/30/20 12:46 Vital Signs Temperature 99.1 F 07/30/20 08:46 Pulse Rate 83 07/30/20 08:46 Respiratory Rate 20 07/30/20 08:46 Blood Pressure 126/81 07/30/20 08:46 O2 Sat by Pulse Oximetry (%) 95 07/29/20 20:22 07/30/20 12:47 Laboratory Last Values WBC 3.2 K/mm3 (4.0-10.0) L 07/29/20 11:00 RBC 3.64 M/mm3 (4.00-5.60) L 07/29/20 11:00 Hgb 11.4 GM/dL (11.7-16.9) L 07/29/20 11:00 Hct 33.7 % (35.4-49) L 07/29/20 11:00 MCV 92.5 fl (80-96) 07/29/20 11:00 MCH 31.3 pg (25.7-33.7) 07/29/20 11:00 MCHC 33.8 g/dl (32.0-35.9) 07/29/20 11:00 RDW 14.8 % (11.9-15.9) 07/29/20 11:00 Plt Count 387 K/MM3 (134-434) D 07/29/20 11:00 MPV 6.1 fl (7.5-11.1) L D 07/29/20 11:00 Sodium 142 mmol/L (136-145) 07/29/20 11:00 Potassium 3.5 mmol/L (3.5-5.1) 07/29/20 11:00 Chloride 105 mmol/L (98-107) 07/29/20 11:00 Carbon Dioxide 27 mmol/L (21-32) 07/29/20 11:00 Anion Gap 10 MMOL/L (8-16) 07/29/20 11:00 BUN 13.7 mg/dL (7-18) 07/29/20 11:00 Creatinine 0.8 mg/dL (0.55-1.3) 07/29/20 11:00 Est GFR (CKD-EPI)AfAm 115.74 07/29/20 11:00 Est GFR (CKD-EPI)NonAf 99.86 07/29/20 11:00 POC Glucometer 99 UNITS (80-120) 07/30/20 05:30 Random Glucose 193 mg/dL (74-106) H 07/29/20 11:00 Calcium 8.1 mg/dL (8.5-10.1) L 07/29/20 11:00 Total Bilirubin 0.7 mg/dL (0.2-1) 07/29/20 11:00 AST 91 U/L (15-37) H 07/29/20 11:00 ALT 47 U/L (13-61) 07/29/20 11:00 Alkaline Phosphatase 98 U/L (45-117) 07/29/20 11:00 Total Protein 8.0 g/dl (6.4-8.2) 07/29/20 11:00 Albumin 3.5 g/dl (3.4-5.0) 07/29/20 11:00 Syphilis Serology Reactive (NONREACTIVE) A* 07/29/20 11:00 RPR Titer Reactive 1:1 (NONREACTIVE) H 07/29/20 11:00 07/30/20 12:48 patient was treated for syphilis before Assessment: 07/30/20 12:48 withdrawal symptom Plan: continue detox ativan regimen
[2020-07-30] MEDS: MELATONIN 5 MG TABLETS PO SCH (22:33)
[2020-07-30] MEDS: THIAMINE HCL 100 MG TABLET (FP) PO SCH (22:34)
[2020-07-31] MEDS ORDERED: LORazepam 1 MG TABLET PO SCH (05:00)
[2020-07-31] MEDS: hydrOXYzine PAMOATE 25 MG CAPSULE (FP) PO SCH (05:12)
[2020-07-31] MEDS: metFORMIN HCL 500 MG TABLET (FP) PO SCH (07:08)
[2020-07-31] MEDS: GEMFIBROZIL 600 MG TABLET (FP) PO SCH (07:09)
[2020-07-31 09:58] VITALS: BP 144/76; PULSE 86; TEMP 99.3
--- NOTE | 2020-07-31 10:13 | DS ---
[facility] Detox Discharge Summary Admission Date: 07/29/20 Discharge Date: 07/31/20 (Pt left AMA) - History Present History: Alcohol Dependence Additional Comments: As per H&P: "Mr. Jade is a 55 yo man who presents to [facility] requesting admission to detox for alcohol use disorder. He was here twice yesterday, intoxicated and sent to the ED at [facility]. Review of the ED record 07/[address] of your head, due to your reports of falling multiple times. We also tested your blood sugar and gave you your normal dose of keppra (500mg). CT head 07/28: no acute pathology, chronic microvascular ischemic changes. Review of outside records, multiple visits to detox/ED facilities. PMH: HLD, DM, seizure disorder PSH: none Psych: none SOC: homeless/streets Legal: none". Pt left AMA. Pt did not complete the detox protocol. Pt states, I'm leaving, my money is missing". An attempt to let pt stay and complete the detox protocol failed. Pt is encouraged to follow-up with an outpatient CD program and also to follow-up with his pmd which he verbalized understanding. Pt is AOX3, in no acute respiratory distress, full ROM, and ambulatory. Pertinent Past History: h/o alcohol use disorder. - Physical Exam Results Vital Signs: Vital Signs Temperature 99.3 F 07/31/20 08:53 Pulse Rate 86 07/31/20 08:53 Respiratory Rate 18 07/31/20 08:53 Blood Pressure 144/76 07/31/20 08:53 O2 Sat by Pulse Oximetry (%) 97 07/31/20 06:23 Vital Signs 07/31/20 07/31/20 06:23 08:53 Temperature 96.7 F L 99.3 F Pulse Rate 64 86 Respiratory 18 18 Rate Blood Pressure 158/88 144/76 O2 Sat by Pulse 97 Oximetry (%) Laboratory Last Values WBC 3.2 K/mm3 (4.0-10.0) L 07/29/20 11:00 RBC 3.64 M/mm3 (4.00-5.60) L 07/29/20 11:00 Hgb 11.4 GM/dL (11.7-16.9) L 07/29/20 11:00 Hct 33.7 % (35.4-49) L 07/29/20 11:00 MCV 92.5 fl (80-96) 07/29/20 11:00 MCH 31.3 pg (25.7-33.7) 07/29/20 11:00 MCHC 33.8 g/dl (32.0-35.9) 07/29/20 11:00 RDW 14.8 % (11.9-15.9) 07/29/20 11:00 Plt Count 387 K/MM3 (134-434) D 07/29/20 11:00 MPV 6.1 fl (7.5-11.1) L D 07/29/20 11:00 Sodium 142 mmol/L (136-145) 07/29/20 11:00 Potassium 3.5 mmol/L (3.5-5.1) 07/29/20 11:00 Chloride 105 mmol/L (98-107) 07/29/20 11:00 Carbon Dioxide 27 mmol/L (21-32) 07/29/20 11:00 Anion Gap 10 MMOL/L (8-16) 07/29/20 11:00 BUN 13.7 mg/dL (7-18) 07/29/20 11:00 Creatinine 0.8 mg/dL (0.55-1.3) 07/29/20 11:00 Est GFR (CKD-EPI)AfAm 115.74 07/29/20 11:00 Est GFR (CKD-EPI)NonAf 99.86 07/29/20 11:00 POC Glucometer 107 UNITS (80-120) 07/31/20 05:11 Random Glucose 193 mg/dL (74-106) H 07/29/20 11:00 Calcium 8.1 mg/dL (8.5-10.1) L 07/29/20 11:00 Total Bilirubin 0.7 mg/dL (0.2-1) 07/29/20 11:00 AST 91 U/L (15-37) H 07/29/20 11:00 ALT 47 U/L (13-61) 07/29/20 11:00 Alkaline Phosphatase 98 U/L (45-117) 07/29/20 11:00 Total Protein 8.0 g/dl (6.4-8.2) 07/29/20 11:00 Albumin 3.5 g/dl (3.4-5.0) 07/29/20 11:00 Syphilis Serology Reactive (NONREACTIVE) A* 07/29/20 11:00 RPR Titer Reactive 1:1 (NONREACTIVE) H 07/29/20 11:00 COVID-19 (MAYKEL) Not detected (Not Detected) 07/29/20 11:00 Labs noted. Patient was treated for syphilis before. Pertinent Admission Physical Exam Findings: withdrawal symptoms. - Treatment Hospital Course: Detox Protocol Followed - Medication Discharge Medications: Ambulatory Orders Gemfibrozil 600 mg PO BID 05/27/19 Aspirin [ASA -] 81 mg PO DAILY #30 tab.chew 07/19/19 Atenolol [Tenormin -] 100 mg PO DAILY 14 Days #14 tablet 07/19/19 levETIRAcetam [Keppra -] 500 mg PO BID #60 tablet 07/19/19 metFORMIN HCL [Glucophage -] 500 mg PO BID@0700,1630 11/18/19 - Diagnosis (1) DM2 (diabetes mellitus, type 2) Current Visit: Yes Status: Chronic Qualifiers: (2) Seizure disorder Current Visit: Yes Status: Chronic (3) Alcohol abuse Current Visit: No Status: Acute (4) Alcohol dependence with uncomplicated withdrawal Current Visit: No Status: Acute (5) Hyperlipemia Current Visit: No Status: Chronic Qualifiers: (6) Hypertension Current Visit: No Status: Chronic Qualifiers: Hypertension type: essential hypertension Qualified Code(s): I10 - Essential (primary) hypertension - AMA Did Patient Leave Against Medical Advice: Yes
[2020-08-01] MEDS ORDERED: LORazepam 0.5 MG TABLET PO PRN
[2020-08-01] MEDS ORDERED: LORazepam 0.5 MG TABLET PO SCH (05:00)
[2020-08-02] MEDS ORDERED: LORazepam 0.5 MG TABLET PO ONE (05:00)
== END 2020-07-31 09:55 | disposition left against medical advice (07) | DRG 770 ==
LOC: YASAS 08:43 → Y3N 10:32
PROVIDERS: ADMIT Allergy & Immunology; ATTEND Allergy & Immunology
PROC: HZ2ZZZZ Detoxification Services for Substance Abuse Treatment (ICD-10-PCS; principal; 2020-07-29)
DX: F10.230 Alcohol dependence with withdrawal, uncomplicated (principal); F10.220 Alcohol dependence with intoxication, uncomplicated; F41.9 Anxiety disorder, unspecified; G40.909 Epilepsy, unspecified, not intractable, without status epilepticus; E78.5 Hyperlipidemia, unspecified; E11.9 Type 2 diabetes mellitus without complications; Z79.84 Long term (current) use of oral hypoglycemic drugs; I10 Essential (primary) hypertension; I25.2 Old myocardial infarction; M54.5 Low back pain; G89.29 Other chronic pain; R29.6 Repeated falls; Z88.8 Allergy status to other drugs, medicaments and biological substances; Z56.0 Unemployment, unspecified; Z59.0 Homelessness
CPT/HCPCS: 36415; 71046-TC-FY; 80053; 82962; 85027; 86593; 86780; C9803; U0003

== ENCOUNTER 2020-09-16 20:14 | Emergency (ER) | payer OTHER ==
[2020-09-16 20:36] VITALS: TEMP 98.9; BMI 22.9
[2020-09-17 03:23] VITALS: BP 142/89; PULSE 90
== END 2020-09-17 05:04 | disposition home or self-care (01) ==
LOC: JER 20:14
DX: F10.920 Alcohol use, unspecified with intoxication, uncomplicated (principal)
CPT/HCPCS: 70450-TC; 82962; 99284-25

== ENCOUNTER 2020-09-17 05:23 | Inpatient (IN) | payer OTHER ==
[~2020-09-17 05:23] MED LIST: chlordiazePOXIDE HCL 25 MG CAPSULE PO SCH
[2020-09-17 05:42] VITALS: BMI 31.7
[2020-09-17] MEDS ORDERED: ACETAMINOPHEN 325 MG TABLET (FP) PO PRN ×2 (05:57)
[2020-09-17] MEDS ORDERED: MAGNESIUM CITRATE 300 ML BOTTLE PO PRN (05:57)
[2020-09-17] MEDS ORDERED: DICYCLOMINE HCL 10 MG CAPSULE PO PRN (05:57)
[2020-09-17] MEDS ORDERED: ONDANSETRON *ODT* 4 MG TABLET SL PRN (05:57)
[2020-09-17] MEDS ORDERED: MENTHOL/PHENOL 1 EACH UD MM PRN (05:57)
[2020-09-17] MEDS ORDERED: P-EPHED 60MG/TRIPROLIDI 2.5MG TABLET PO PRN (05:57)
[2020-09-17] MEDS ORDERED: guaiFENesin 200 MG/10 ML 10 ML UNIT-DOSE CUPS PO PRN (05:57)
[2020-09-17] MEDS ORDERED: IBUPROFEN 400 MG TABLET (FP) PO PRN (05:57)
[2020-09-17] MEDS ORDERED: NICOTINE POLACRILEX 2 MG GUM BUC PRN (05:57)
[2020-09-17] MEDS ORDERED: BISMUTH SUBSALICYLATE 524 MG/30 ML UD PO PRN (05:57)
[2020-09-17] MEDS ORDERED: MAG HYDROX/AL HYDROX/SIMETH 30 ML UNIT-DOSE CUP PO PRN (05:57)
[2020-09-17] MEDS ORDERED: MAGNESIUM HYDROX 2400MG/30ML ORAL SUSPENSION 30 ML CUP PO PRN (05:57)
[2020-09-17] MEDS ORDERED: chlordiazePOXIDE HCL 25 MG CAPSULE PO PRN (05:57)
[2020-09-17] MEDS: metFORMIN HCL 500 MG TABLET (FP) PO SCH ×2 (08:00→17:36)
[2020-09-17] MEDS ORDERED: PATIENT'S OWN MEDICATION (NON-FORMULARY) (Atenolol [Tenormin -] 100 MG Tablet) PO SCH (10:00)
[2020-09-17 10:34] LABS: HEMATOCRIT 33.3 % (35.4-49); HEMOGLOBIN 11.2 GM/dL (11.7-16.9); MCH 31.6 pg (25.7-33.7); MCHC 33.7 g/dl (32.0-35.9); MEAN CELL VOLUME 93.7 fl (80-96); MEAN PLT VOLUME 6.5 fl (7.5-11.1); PLATELET COUNT 307 K/MM3 (134-434); RBC 3.55 M/mm3 (4.00-5.60); RDW 16.9 % (11.9-15.9); WHITE BLOOD COUNT 5.2 K/mm3 (4.0-10.0)
[2020-09-17 10:36] LABS: POTASSIUM 3.6 mmol/L (3.5-5.1)
[2020-09-17 10:41] LABS: ALBUMIN 3.2 g/dl (3.4-5.0)
[2020-09-17 10:42] LABS: BLOOD UREA NITROGEN 24.6 mg/dL (7-18)
[2020-09-17 10:45] LABS: CREATININE 0.9 mg/dL (0.55-1.3)
[2020-09-17 10:46] LABS: BILIRUBIN,TOTAL 0.7 mg/dL (0.2-1)
[2020-09-17] MEDS: levETIRAcetam 500 MG TABLET (FP) PO SCH ×2 (11:05→22:18)
[2020-09-17] MEDS: ATENOLOL 50 MG TABLET (FP) PO SCH (11:05)
[2020-09-17] MEDS: ASPIRIN 81 MG CHEWABLE TABLETS PO SCH (11:05)
[2020-09-17] MEDS: PRENATAL VITAMINS W/ FOLIC ACID TABLET (FP) PO SCH (11:05)
[2020-09-17] MEDS: LORazepam 2 MG TABLET PO SCH ×3 (11:05→22:20)
[2020-09-17] MEDS: BACITRACIN 0.9 GM PACKET TP SCH (11:05)
[2020-09-17] MEDS: THIAMINE HCL 100 MG TABLET (FP) PO SCH (22:18)
[2020-09-17] MEDS: MELATONIN 5 MG TABLETS PO SCH (22:19)
[2020-09-17] MEDS: METHOCARBAMOL 500 MG TABLET PO PRN (23:06)
[2020-09-18] MEDS ORDERED: chlordiazePOXIDE HCL 25 MG CAPSULE PO SCH (05:00)
[2020-09-18] MEDS: metFORMIN HCL 500 MG TABLET (FP) PO SCH ×2 (06:28→17:30)
[2020-09-18] MEDS: LORazepam 2 MG TABLET PO SCH ×4 (06:35→22:05)
[2020-09-18] MEDS: levETIRAcetam 500 MG TABLET (FP) PO SCH ×2 (10:09→22:05)
[2020-09-18] MEDS: BACITRACIN 0.9 GM PACKET TP SCH (10:09)
[2020-09-18] MEDS: ASPIRIN 81 MG CHEWABLE TABLETS PO SCH (10:09)
[2020-09-18] MEDS: PRENATAL VITAMINS W/ FOLIC ACID TABLET (FP) PO SCH (10:09)
[2020-09-18] MEDS: ATENOLOL 50 MG TABLET (FP) PO SCH (10:10)
[2020-09-18] MEDS: LORazepam 1 MG TABLET PO PRN (13:22)
[2020-09-18] MEDS: THIAMINE HCL 100 MG TABLET (FP) PO SCH (22:04)
[2020-09-18] MEDS: MELATONIN 5 MG TABLETS PO SCH (22:05)
[2020-09-19] MEDS ORDERED: chlordiazePOXIDE HCL 10 MG CAPSULE PO PRN
[2020-09-19] MEDS: hydrOXYzine PAMOATE 25 MG CAPSULE (FP) PO PRN ×2 (01:05→12:51)
[2020-09-19] MEDS: METHOCARBAMOL 500 MG TABLET PO PRN (01:05)
[2020-09-19] MEDS ORDERED: chlordiazePOXIDE HCL 10 MG CAPSULE PO SCH (05:00)
[2020-09-19] MEDS: LORazepam 1 MG TABLET PO SCH ×4 (06:24→23:06)
[2020-09-19] MEDS: metFORMIN HCL 500 MG TABLET (FP) PO SCH ×2 (06:25→16:52)
[2020-09-19] MEDS: ATENOLOL 50 MG TABLET (FP) PO SCH (10:12)
[2020-09-19] MEDS: BACITRACIN 0.9 GM PACKET TP SCH (10:12)
[2020-09-19] MEDS: levETIRAcetam 500 MG TABLET (FP) PO SCH ×2 (10:12→23:06)
[2020-09-19] MEDS: PRENATAL VITAMINS W/ FOLIC ACID TABLET (FP) PO SCH (10:12)
[2020-09-19] MEDS: ASPIRIN 81 MG CHEWABLE TABLETS PO SCH (10:12)
[2020-09-19 11:19] LABS: EPI CELLS 7 /uL (0-25.1); HYALINE CASTS 1 /uL (0-3.1); PH,URINE 5.5 (5.0-8.0); URINE APPEARANCE CLEAR; URINE BACTERIA 11 /uL (0-1359); URINE BILIRUBIN NEGATIVE (NEGATIVE); URINE COLOR YELLOW; URINE GLUCOSE (UA) NEGATIVE (NEGATIVE); URINE KETONE NEGATIVE (NEGATIVE); URINE LEUK ESTERASE NEGATIVE (NEGATIVE); URINE NITRITE NEGATIVE (NEGATIVE); URINE PROTEIN 2+ (NEGATIVE); URINE RBC 3 /uL (0-23.9); URINE UROBILINOGEN 0.2 mg/dL (0.2-1.0); URINE WBC 5 /uL (0-25.8)
[2020-09-19] MEDS: LORazepam 1 MG TABLET PO PRN (12:51)
[2020-09-19] MEDS: amLODIPine BESYLATE 5 MG TABLET (FP) PO SCH (16:54)
[2020-09-19] MEDS: THIAMINE HCL 100 MG TABLET (FP) PO SCH (23:06)
[2020-09-19] MEDS: MELATONIN 5 MG TABLETS PO SCH (23:07)
[2020-09-20] MEDS ORDERED: LORazepam 0.5 MG TABLET PO PRN
[2020-09-20] MEDS: METHOCARBAMOL 500 MG TABLET PO PRN (02:09)
[2020-09-20] MEDS: hydrOXYzine PAMOATE 25 MG CAPSULE (FP) PO PRN (02:09)
[2020-09-20] MEDS ORDERED: chlordiazePOXIDE HCL 10 MG CAPSULE PO SCH (05:00)
[2020-09-20] MEDS: LORazepam 0.5 MG TABLET PO SCH ×4 (06:07→22:24)
[2020-09-20] MEDS: metFORMIN HCL 500 MG TABLET (FP) PO SCH ×2 (06:07→18:25)
[2020-09-20] MEDS: levETIRAcetam 500 MG TABLET (FP) PO SCH ×2 (10:16→22:24)
[2020-09-20] MEDS: BACITRACIN 0.9 GM PACKET TP SCH (10:16)
[2020-09-20] MEDS: ASPIRIN 81 MG CHEWABLE TABLETS PO SCH (10:16)
[2020-09-20] MEDS: ATENOLOL 50 MG TABLET (FP) PO SCH (10:16)
[2020-09-20] MEDS: amLODIPine BESYLATE 5 MG TABLET (FP) PO SCH (10:16)
[2020-09-20] MEDS: PRENATAL VITAMINS W/ FOLIC ACID TABLET (FP) PO SCH (10:17)
[2020-09-20] MEDS ORDERED: amLODIPine BESYLATE 10 MG TABLET (FP) PO ONE (13:20)
[2020-09-20] MEDS: MELATONIN 5 MG TABLETS PO SCH (22:24)
[2020-09-20] MEDS: THIAMINE HCL 100 MG TABLET (FP) PO SCH (22:24)
[2020-09-21] MEDS ORDERED: chlordiazePOXIDE HCL 10 MG CAPSULE PO ONE (05:00)
[2020-09-21] MEDS ORDERED: LORazepam 0.5 MG TABLET PO ONE (05:00)
[2020-09-21] MEDS: metFORMIN HCL 500 MG TABLET (FP) PO SCH (06:28)
[2020-09-21] MEDS: PRENATAL VITAMINS W/ FOLIC ACID TABLET (FP) PO SCH (10:31)
[2020-09-21] MEDS: levETIRAcetam 500 MG TABLET (FP) PO SCH (10:31)
[2020-09-21] MEDS: ASPIRIN 81 MG CHEWABLE TABLETS PO SCH (10:31)
[2020-09-21] MEDS: amLODIPine BESYLATE 5 MG TABLET (FP) PO SCH (10:31)
[2020-09-21] MEDS: ATENOLOL 50 MG TABLET (FP) PO SCH (10:32)
[2020-09-21] MEDS: BACITRACIN 0.9 GM PACKET TP SCH (10:33)
[2020-09-21 13:56] VITALS: BP 152/93; PULSE 94; TEMP 97.5
== END 2020-09-21 12:32 | disposition other institution (70) | DRG 775 ==
LOC: YASAS 05:23 → Y3N 05:53
PROVIDERS: ADMIT Allergy & Immunology; ATTEND Allergy & Immunology
PROC: HZ2ZZZZ Detoxification Services for Substance Abuse Treatment (ICD-10-PCS; principal; 2020-09-17)
DX: F10.230 Alcohol dependence with withdrawal, uncomplicated (principal); F10.24 Alcohol dependence with alcohol-induced mood disorder; F19.24 Other psychoactive substance dependence with psychoactive substance-induced mood disorder; F32.9 Major depressive disorder, single episode, unspecified; I10 Essential (primary) hypertension; I25.2 Old myocardial infarction; E11.9 Type 2 diabetes mellitus without complications; E78.5 Hyperlipidemia, unspecified; G40.909 Epilepsy, unspecified, not intractable, without status epilepticus; R63.8 Other symptoms and signs concerning food and fluid intake; R74.9 Abnormal serum enzyme level, unspecified; E66.9 Obesity, unspecified; Z68.31 Body mass index [BMI] 31.0-31.9, adult; Z88.8 Allergy status to other drugs, medicaments and biological substances; Z79.84 Long term (current) use of oral hypoglycemic drugs; Z86.19 Personal history of other infectious and parasitic diseases; Z86.11 Personal history of tuberculosis; Z87.891 Personal history of nicotine dependence; Z56.0 Unemployment, unspecified; Z59.0 Homelessness
CPT/HCPCS: 36415; 80053; 80177; 81003; 82962; 85027; 86593; 86780; 93005; 93010; C9803; U0003

== ENCOUNTER 2020-09-21 12:40 | Inpatient (IN) | payer OTHER ==
[2020-09-21] MEDS ORDERED: NICOTINE POLACRILEX 2 MG GUM BUC PRN (14:55)
[2020-09-21] MEDS ORDERED: MAGNESIUM CITRATE 300 ML BOTTLE PO PRN (14:55)
[2020-09-21] MEDS ORDERED: IBUPROFEN 400 MG TABLET (FP) PO PRN (14:55)
[2020-09-21] MEDS ORDERED: MENTHOL/PHENOL 1 EACH UD MM PRN (14:55)
[2020-09-21] MEDS ORDERED: P-EPHED 60MG/TRIPROLIDI 2.5MG TABLET PO PRN (14:55)
[2020-09-21] MEDS ORDERED: MAGNESIUM HYDROX 2400MG/30ML ORAL SUSPENSION 30 ML CUP PO PRN (14:55)
[2020-09-21] MEDS ORDERED: LOPERAMIDE HCL 2 MG CAPSULE PO PRN (14:55)
[2020-09-21] MEDS ORDERED: MAG HYDROX/AL HYDROX/SIMETH 30 ML UNIT-DOSE CUP PO PRN (14:55)
[2020-09-21] MEDS ORDERED: guaiFENesin 200 MG/10 ML 10 ML UNIT-DOSE CUPS PO PRN (14:55)
[2020-09-21] MEDS: metFORMIN HCL 500 MG TABLET (FP) PO SCH (16:35)
[2020-09-21] MEDS: levETIRAcetam 500 MG TABLET (FP) PO SCH (21:27)
[2020-09-21] MEDS: THIAMINE HCL 100 MG TABLET (FP) PO SCH (21:27)
[2020-09-21] MEDS: MELATONIN 5 MG TABLETS PO SCH (21:27)
[2020-09-22] MEDS: ACETAMINOPHEN 325 MG TABLET (FP) PO PRN (05:53)
[2020-09-22] MEDS: metFORMIN HCL 500 MG TABLET (FP) PO SCH ×2 (07:27→17:51)
[2020-09-22] MEDS ORDERED: PT OWN MED DRAWER 7, Y5N ONE (08:33)
[2020-09-22] MEDS: levETIRAcetam 500 MG TABLET (FP) PO SCH ×2 (10:02→21:16)
[2020-09-22] MEDS: hydrOXYzine PAMOATE 25 MG CAPSULE (FP) PO PRN (10:02)
[2020-09-22] MEDS: ASPIRIN 81 MG CHEWABLE TABLETS PO SCH (10:02)
[2020-09-22] MEDS: PRENATAL VITAMINS W/ FOLIC ACID TABLET (FP) PO SCH (10:02)
[2020-09-22] MEDS: ATENOLOL 50 MG TABLET (FP) PO SCH (12:08)
[2020-09-22] MEDS: MELATONIN 5 MG TABLETS PO SCH (21:16)
[2020-09-22] MEDS: THIAMINE HCL 100 MG TABLET (FP) PO SCH (21:17)
[2020-09-23] MEDS: ACETAMINOPHEN 325 MG TABLET (FP) PO PRN ×2 (02:47→09:38)
[2020-09-23] MEDS: metFORMIN HCL 500 MG TABLET (FP) PO SCH ×2 (06:09→17:11)
[2020-09-23] MEDS: PRENATAL VITAMINS W/ FOLIC ACID TABLET (FP) PO SCH (09:35)
[2020-09-23] MEDS: ATENOLOL 50 MG TABLET (FP) PO SCH (09:35)
[2020-09-23] MEDS: hydrOXYzine PAMOATE 25 MG CAPSULE (FP) PO PRN ×2 (09:35→22:05)
[2020-09-23] MEDS: ASPIRIN 81 MG CHEWABLE TABLETS PO SCH (09:35)
[2020-09-23] MEDS: levETIRAcetam 500 MG TABLET (FP) PO SCH ×2 (09:35→22:05)
[2020-09-23] MEDS: THIAMINE HCL 100 MG TABLET (FP) PO SCH (22:05)
[2020-09-23] MEDS: MELATONIN 5 MG TABLETS PO SCH (22:05)
[2020-09-24] MEDS: metFORMIN HCL 500 MG TABLET (FP) PO SCH ×2 (06:53→16:52)
[2020-09-24] MEDS ORDERED: PT OWN MED DRAWER 7, Y5N ONE (08:30)
[2020-09-24] MEDS: ASPIRIN 81 MG CHEWABLE TABLETS PO SCH (11:05)
[2020-09-24] MEDS: levETIRAcetam 500 MG TABLET (FP) PO SCH ×2 (11:05→21:10)
[2020-09-24] MEDS: ATENOLOL 50 MG TABLET (FP) PO SCH (11:05)
[2020-09-24] MEDS: PRENATAL VITAMINS W/ FOLIC ACID TABLET (FP) PO SCH (11:06)
[2020-09-24] MEDS: MELATONIN 5 MG TABLETS PO SCH (21:10)
[2020-09-24] MEDS: THIAMINE HCL 100 MG TABLET (FP) PO SCH (21:10)
[2020-09-25] MEDS: metFORMIN HCL 500 MG TABLET (FP) PO SCH ×2 (06:54→16:12)
[2020-09-25] MEDS ORDERED: PT OWN MED DRAWER 7, Y5N ONE (08:24)
[2020-09-25] MEDS: levETIRAcetam 500 MG TABLET (FP) PO SCH ×2 (09:57→21:12)
[2020-09-25] MEDS: ASPIRIN 81 MG CHEWABLE TABLETS PO SCH (09:58)
[2020-09-25] MEDS: PRENATAL VITAMINS W/ FOLIC ACID TABLET (FP) PO SCH (09:58)
[2020-09-25] MEDS: ATENOLOL 50 MG TABLET (FP) PO SCH (09:58)
[2020-09-25] MEDS: THIAMINE HCL 100 MG TABLET (FP) PO SCH (21:12)
[2020-09-25] MEDS: MELATONIN 5 MG TABLETS PO SCH (21:12)
[2020-09-26] MEDS: metFORMIN HCL 500 MG TABLET (FP) PO SCH ×2 (06:21→16:25)
[2020-09-26] MEDS: ASPIRIN 81 MG CHEWABLE TABLETS PO SCH (09:56)
[2020-09-26] MEDS: levETIRAcetam 500 MG TABLET (FP) PO SCH ×2 (09:56→21:09)
[2020-09-26] MEDS: PRENATAL VITAMINS W/ FOLIC ACID TABLET (FP) PO SCH (09:56)
[2020-09-26] MEDS: ATENOLOL 50 MG TABLET (FP) PO SCH (09:56)
[2020-09-26] MEDS: MELATONIN 5 MG TABLETS PO SCH (21:09)
[2020-09-26] MEDS: THIAMINE HCL 100 MG TABLET (FP) PO SCH (21:09)
[2020-09-27] MEDS: metFORMIN HCL 500 MG TABLET (FP) PO SCH ×2 (06:46→17:15)
[2020-09-27] MEDS ORDERED: PT OWN MED DRAWER 7, Y5N ONE (08:48)
[2020-09-27] MEDS: levETIRAcetam 500 MG TABLET (FP) PO SCH ×2 (09:55→21:10)
[2020-09-27] MEDS: ASPIRIN 81 MG CHEWABLE TABLETS PO SCH (09:55)
[2020-09-27] MEDS: ATENOLOL 50 MG TABLET (FP) PO SCH (09:55)
[2020-09-27] MEDS: PRENATAL VITAMINS W/ FOLIC ACID TABLET (FP) PO SCH (09:55)
[2020-09-27] MEDS: MELATONIN 5 MG TABLETS PO SCH (21:10)
[2020-09-27] MEDS: THIAMINE HCL 100 MG TABLET (FP) PO SCH (21:10)
[2020-09-28] MEDS: metFORMIN HCL 500 MG TABLET (FP) PO SCH ×2 (07:36→16:57)
[2020-09-28] MEDS ORDERED: PT OWN MED DRAWER 7, Y5N ONE ×2 (08:45→10:02)
[2020-09-28] MEDS: ATENOLOL 50 MG TABLET (FP) PO SCH (10:00)
[2020-09-28] MEDS: PRENATAL VITAMINS W/ FOLIC ACID TABLET (FP) PO SCH (10:01)
[2020-09-28] MEDS: ASPIRIN 81 MG CHEWABLE TABLETS PO SCH (10:01)
[2020-09-28] MEDS: levETIRAcetam 500 MG TABLET (FP) PO SCH ×2 (10:01→21:04)
[2020-09-28] MEDS: MELATONIN 5 MG TABLETS PO SCH (21:03)
[2020-09-28] MEDS: THIAMINE HCL 100 MG TABLET (FP) PO SCH (21:03)
[2020-09-29] MEDS: metFORMIN HCL 500 MG TABLET (FP) PO SCH (07:00)
[2020-09-29] MEDS ORDERED: PT OWN MED DRAWER 7, Y5N ONE (08:31)
[2020-09-29 10:03] VITALS: BP 151/80; PULSE 87; TEMP 97.3
[2020-09-29] MEDS: levETIRAcetam 500 MG TABLET (FP) PO SCH (10:52)
[2020-09-29] MEDS: ASPIRIN 81 MG CHEWABLE TABLETS PO SCH (10:52)
[2020-09-29] MEDS: ATENOLOL 50 MG TABLET (FP) PO SCH (10:53)
[2020-09-29] MEDS: PRENATAL VITAMINS W/ FOLIC ACID TABLET (FP) PO SCH (10:53)
== END 2020-09-29 10:54 | disposition home or self-care (01) | DRG 772 ==
LOC: YASAS 12:40 → Y3W 12:42
PROVIDERS: ADMIT Allergy & Immunology; ATTEND Allergy & Immunology
PROC: HZ42ZZZ Group Counseling for Substance Abuse Treatment, Cognitive-Behavioral (ICD-10-PCS; principal; 2020-09-21)
DX: F10.20 Alcohol dependence, uncomplicated (principal); I10 Essential (primary) hypertension; I25.2 Old myocardial infarction; E11.9 Type 2 diabetes mellitus without complications; G40.909 Epilepsy, unspecified, not intractable, without status epilepticus; Z87.891 Personal history of nicotine dependence; Z79.84 Long term (current) use of oral hypoglycemic drugs; Z86.11 Personal history of tuberculosis; Z59.0 Homelessness
CPT/HCPCS: 36415; 80177; 82962

== ENCOUNTER 2022-06-14 13:34 | Inpatient (IN) | payer OTHER ==
[2022-06-14 15:01] VITALS: BMI 28.7
[2022-06-14] MEDS ORDERED: NICOTINE 10 MG CARTRIDGE (INHALER) IH PRN (15:34)
[2022-06-14] MEDS ORDERED: METHOCARBAMOL 500 MG TABLET PO PRN (15:34)
[2022-06-14] MEDS ORDERED: ONDANSETRON *ODT* 4 MG TABLET SL PRN (15:34)
[2022-06-14] MEDS ORDERED: IBUPROFEN 400 MG TABLET (FP) PO PRN (15:34)
[2022-06-14] MEDS ORDERED: LOPERAMIDE HCL 2 MG CAPSULE PO PRN (15:34)
[2022-06-14] MEDS ORDERED: IBUPROFEN 600 MG TABLET (FP) PO PRN (15:34)
[2022-06-14] MEDS ORDERED: ACETAMINOPHEN 325 MG TABLET (FP) PO PRN ×2 (15:34)
[2022-06-14] MEDS ORDERED: MAG HYDROX/AL HYDROX/SIMETH 30 ML UNIT-DOSE CUP PO PRN (15:34)
[2022-06-14] MEDS ORDERED: MAGNESIUM CITRATE 300 ML BOTTLE PO PRN (15:34)
[2022-06-14] MEDS ORDERED: DICYCLOMINE HCL 10 MG CAPSULE PO PRN (15:34)
[2022-06-14] MEDS ORDERED: LORazepam 1 MG TABLET PO PRN (15:34)
[2022-06-14] MEDS ORDERED: MAGNESIUM HYDROX 2400MG/30ML ORAL SUSPENSION 30 ML CUP PO PRN (15:34)
[2022-06-14] MEDS ORDERED: BENZOCAINE/MENTHOL (CHLORASEPTIC ) LOZENGE MM PRN (15:34)
[2022-06-14] MEDS ORDERED: BISMUTH SUBSALICYLATE 524 MG/30 ML PO PRN (15:34)
[2022-06-14] MEDS: LORazepam 2 MG TABLET PO SCH ×2 (17:25→23:08)
[2022-06-14] MEDS: hydrOXYzine PAMOATE 25 MG CAPSULE (FP) PO SCH ×2 (17:25→23:08)
[2022-06-14] MEDS: PRENATAL VITAMINS W/ FOLIC ACID TABLET (FP) PO SCH (17:25)
[2022-06-14] MEDS ORDERED: ATENOLOL 50 MG TABLET (FP) PO ONE (18:48)
[2022-06-14] MEDS: GEMFIBROZIL 600 MG TABLET (FP) PO SCH (20:15)
[2022-06-14] MEDS: levETIRAcetam 500 MG TABLET (FP) PO SCH (23:08)
[2022-06-14] MEDS: THIAMINE HCL 100 MG TABLET (FP) PO SCH (23:08)
[2022-06-14] MEDS: MELATONIN 5 MG TABLETS PO SCH (23:08)
[2022-06-15] MEDS: GEMFIBROZIL 600 MG TABLET (FP) PO SCH ×2 (06:14→18:22)
[2022-06-15] MEDS: hydrOXYzine PAMOATE 25 MG CAPSULE (FP) PO SCH ×5 (06:14→23:32)
[2022-06-15] MEDS: LORazepam 2 MG TABLET PO SCH ×4 (06:14→23:32)
[2022-06-15] MEDS: metFORMIN HCL 500 MG TABLET (FP) PO SCH ×2 (06:14→17:35)
[2022-06-15] MEDS: ASPIRIN 81 MG CHEWABLE TABLETS PO SCH (11:09)
[2022-06-15] MEDS: ATENOLOL 50 MG TABLET (FP) PO SCH (11:09)
[2022-06-15] MEDS: levETIRAcetam 500 MG TABLET (FP) PO SCH ×2 (11:09→23:32)
[2022-06-15] MEDS: PRENATAL VITAMINS W/ FOLIC ACID TABLET (FP) PO SCH (11:11)
[2022-06-15] MEDS ORDERED: METOPROLOL TARTRATE 50 MG TABLET (FP) PO ONE (22:52)
[2022-06-15] MEDS: MELATONIN 5 MG TABLETS PO SCH (23:32)
[2022-06-15] MEDS: THIAMINE HCL 100 MG TABLET (FP) PO SCH (23:32)
[2022-06-16] MEDS: hydrOXYzine PAMOATE 25 MG CAPSULE (FP) PO SCH ×3 (06:20→13:21)
[2022-06-16] MEDS: LORazepam 1 MG TABLET PO SCH ×2 (06:20→10:32)
[2022-06-16 06:30] VITALS: BP 179/94; PULSE 84; RESP 17; TEMP 97.1
[2022-06-16] MEDS ORDERED: ATENOLOL 50 MG TABLET (FP) PO ONE (06:56)
[2022-06-16] MEDS: metFORMIN HCL 500 MG TABLET (FP) PO SCH (07:31)
[2022-06-16] MEDS: GEMFIBROZIL 600 MG TABLET (FP) PO SCH (07:31)
[2022-06-16] MEDS: levETIRAcetam 500 MG TABLET (FP) PO SCH (10:31)
[2022-06-16] MEDS: ATENOLOL 50 MG TABLET (FP) PO SCH (10:31)
[2022-06-16] MEDS: PRENATAL VITAMINS W/ FOLIC ACID TABLET (FP) PO SCH (10:31)
[2022-06-16] MEDS: ASPIRIN 81 MG CHEWABLE TABLETS PO SCH (10:31)
[2022-06-17] MEDS ORDERED: LORazepam 0.5 MG TABLET PO PRN
[2022-06-17] MEDS ORDERED: LORazepam 0.5 MG TABLET PO SCH (05:00)
[2022-06-18] MEDS ORDERED: LORazepam 0.5 MG TABLET PO ONE (05:00)
== END 2022-06-16 15:57 | disposition short-term general hospital (02) | DRG 775 ==
LOC: YASAS 13:34 → Y3N 16:45
PROVIDERS: ADMIT Allergy & Immunology; ATTEND Surgery
PROC: HZ2ZZZZ Detoxification Services for Substance Abuse Treatment (ICD-10-PCS; principal; 2022-06-14)
DX: F10.230 Alcohol dependence with withdrawal, uncomplicated (principal); F41.9 Anxiety disorder, unspecified; I10 Essential (primary) hypertension; I25.10 Atherosclerotic heart disease of native coronary artery without angina pectoris; I25.2 Old myocardial infarction; M54.59 Other low back pain; G89.29 Other chronic pain; G40.909 Epilepsy, unspecified, not intractable, without status epilepticus; E11.9 Type 2 diabetes mellitus without complications; R26.2 Difficulty in walking, not elsewhere classified; Z99.89 Dependence on other enabling machines and devices; Z85.51 Personal history of malignant neoplasm of bladder; Z86.11 Personal history of tuberculosis; Z91.19 Patient's noncompliance with other medical treatment and regimen; Z88.8 Allergy status to other drugs, medicaments and biological substances; Z87.891 Personal history of nicotine dependence; Z79.84 Long term (current) use of oral hypoglycemic drugs; Z59.00 Homelessness unspecified
CPT/HCPCS: 82962; C9803-CS; U0003; U0005

== ENCOUNTER 2022-06-16 07:58 | Emergency (ER) | payer OTHER ==
[2022-06-16 08:29] VITALS: BMI 26.5
[2022-06-16] MEDS ORDERED: HALOPERIDOL LACTATE 5 MG/ML IM ONE (10:08)
[2022-06-16] MEDS ORDERED: LORazepam 2 MG/ML SDV VIAL IM ONE (10:09)
[2022-06-16] MEDS ORDERED: HALOPERIDOL LACTATE 5 MG/ML ONE (10:32)
[2022-06-16 11:47] LABS: HEMATOCRIT 21.6 % (35.4-49); HEMOGLOBIN 7.3 GM/dL (11.7-16.9); MCH 31.9 pg (25.7-33.7); MCHC 33.6 g/dl (32.0-35.9); MEAN CELL VOLUME 94.8 fl (80-96); MEAN PLT VOLUME 6.4 fl (7.5-11.1); PLATELET COUNT 283 10^3/uL (134-434); RBC 2.28 M/mm3 (4.00-5.60); RDW 18.4 % (11.9-15.9); WHITE BLOOD COUNT 5.1 K/mm3 (4.0-10.0)
[2022-06-16 11:57] LABS: ACTIVATED PTT 32.6 SECONDS (25.2-36.5); INR 0.98 (0.83-1.09); PROTHROMBIN TIME (PATIENT) 11.3 SEC (9.7-13.0)
[2022-06-16 12:02] LABS: ALBUMIN 2.3 g/dl (3.4-5.0)
[2022-06-16 12:03] LABS: BLOOD UREA NITROGEN 43.4 mg/dL (7-18)
[2022-06-16 12:06] LABS: CREATININE 3.5 mg/dL (0.55-1.3)
[2022-06-16 12:07] LABS: BILIRUBIN,TOTAL 0.2 mg/dL (0.2-1); TOT PROT 6.5 g/dl (6.4-8.2)
[2022-06-16] MEDS ORDERED: KETAMINE HCL 200 MG/20 ML VIAL IVPUSH ONE ×2 (12:26→13:09)
[2022-06-16] MEDS ORDERED: KETAMINE HCL 200 MG/20 ML VIAL ONE (12:27)
[2022-06-16 13:11] LABS: ANISOCYTOSIS 2+; MACROCYTOSIS 2+
[2022-06-16 14:38] VITALS: BP 163/100; PULSE 77; RESP 20; TEMP 98
== END 2022-06-16 14:56 | disposition short-term general hospital (02) ==
LOC: JER 07:58
PROC: 3E033GC Introduction of Other Therapeutic Substance into Peripheral Vein, Percutaneous Approach (ICD-10-PCS; principal; 2022-06-16)
PROC: 3E023NZ Introduction of Analgesics, Hypnotics, Sedatives into Muscle, Percutaneous Approach (ICD-10-PCS; 2022-06-16)
PROC: 3E023NZ Introduction of Analgesics, Hypnotics, Sedatives into Muscle, Percutaneous Approach (ICD-10-PCS; 2022-06-16)
DX: S06.5X0A Traumatic subdural hemorrhage without loss of consciousness, initial encounter (principal); W01.0XXA Fall on same level from slipping, tripping and stumbling without subsequent striking against object, initial encounter
CPT/HCPCS: 36415; 70450-TC; 71045-TC-FY; 72125-TC; 72170-TC-FY; 80053; 84484; 85025; 85610; 85730; 86850; 86900; 86901; 93005; 93010; 99285-25; C9803-CS; U0003; U0005

== ENCOUNTER 2022-07-09 11:28 | Inpatient (IN) | payer OTHER ==
[2022-07-09 12:38] VITALS: BMI 30.7
[2022-07-09] MEDS ORDERED: ACETAMINOPHEN 325 MG TABLET (FP) PO PRN ×2 (13:32)
[2022-07-09] MEDS ORDERED: ONDANSETRON *ODT* 4 MG TABLET SL PRN (13:32)
[2022-07-09] MEDS ORDERED: IBUPROFEN 600 MG TABLET (FP) PO PRN (13:32)
[2022-07-09] MEDS ORDERED: NALOXONE HCL (KLOXXADO) 8 MG SPRAY NS PRN (13:32)
[2022-07-09] MEDS ORDERED: MAGNESIUM HYDROX 2400MG/30ML ORAL SUSPENSION 30 ML CUP PO PRN (13:32)
[2022-07-09] MEDS ORDERED: LOPERAMIDE HCL 2 MG CAPSULE PO PRN (13:32)
[2022-07-09] MEDS ORDERED: BISMUTH SUBSALICYLATE 524 MG/30 ML PO PRN (13:32)
[2022-07-09] MEDS ORDERED: IBUPROFEN 400 MG TABLET (FP) PO PRN (13:32)
[2022-07-09] MEDS ORDERED: MAGNESIUM CITRATE 300 ML BOTTLE PO PRN (13:32)
[2022-07-09] MEDS ORDERED: NICOTINE 10 MG CARTRIDGE (INHALER) IH PRN (13:32)
[2022-07-09] MEDS ORDERED: chlordiazePOXIDE HCL 25 MG CAPSULE PO PRN (13:32)
[2022-07-09] MEDS ORDERED: DICYCLOMINE HCL 10 MG CAPSULE PO PRN (13:32)
[2022-07-09] MEDS ORDERED: MAG HYDROX/AL HYDROX/SIMETH 30 ML UNIT-DOSE CUP PO PRN (13:32)
[2022-07-09] MEDS ORDERED: BENZOCAINE/MENTHOL (CHLORASEPTIC ) LOZENGE MM PRN (13:32)
[2022-07-09] MEDS: hydrOXYzine PAMOATE 25 MG CAPSULE (FP) PO SCH ×3 (15:22→23:06)
[2022-07-09] MEDS: ATENOLOL 50 MG TABLET (FP) PO SCH (17:55)
[2022-07-09] MEDS: chlordiazePOXIDE HCL 25 MG CAPSULE PO SCH ×2 (17:59→22:59)
[2022-07-09] MEDS: metFORMIN HCL 500 MG TABLET (FP) PO SCH (18:17)
[2022-07-09] MEDS: THIAMINE HCL 100 MG TABLET (FP) PO SCH (22:59)
[2022-07-09] MEDS: levETIRAcetam 500 MG TABLET (FP) PO SCH (22:59)
[2022-07-09] MEDS: MELATONIN 5 MG TABLETS PO SCH (23:05)
[2022-07-10] MEDS: chlordiazePOXIDE HCL 25 MG CAPSULE PO SCH ×4 (06:29→22:11)
[2022-07-10] MEDS: hydrOXYzine PAMOATE 25 MG CAPSULE (FP) PO SCH ×5 (06:30→22:14)
[2022-07-10] MEDS: metFORMIN HCL 500 MG TABLET (FP) PO SCH ×2 (08:25→17:45)
[2022-07-10] MEDS ORDERED: cloNIDine HCL 0.1 MG TABLET PO ONE (09:01)
[2022-07-10] MEDS: ASPIRIN 81 MG CHEWABLE TABLETS PO SCH (10:00)
[2022-07-10] MEDS: levETIRAcetam 500 MG TABLET (FP) PO SCH ×2 (10:00→22:11)
[2022-07-10] MEDS ORDERED: PATIENT'S OWN MEDICATION (NON-FORMULARY) (Atenolol [Tenormin -] 100 MG Tablet) PO SCH (10:00)
[2022-07-10] MEDS: PRENATAL VITAMINS W/ FOLIC ACID TABLET (FP) PO SCH (10:01)
[2022-07-10] MEDS: ATENOLOL 50 MG TABLET (FP) PO SCH (10:08)
[2022-07-10 11:18] LABS: HEMATOCRIT 23.7 % (35.4-49); HEMOGLOBIN 7.7 GM/dL (11.7-16.9); MCH 30.1 pg (25.7-33.7); MCHC 32.5 g/dl (32.0-35.9); MEAN CELL VOLUME 92.4 fl (80-96); MEAN PLT VOLUME 6.8 fl (7.5-11.1); PLATELET COUNT 217 10^3/uL (134-434); RBC 2.56 M/mm3 (4.00-5.60); RDW 19.5 % (11.9-15.9); WHITE BLOOD COUNT 5.8 K/mm3 (4.0-10.0)
[2022-07-10 11:20] LABS: CALCIUM 7.9 mg/dL (8.5-10.1)
[2022-07-10 11:21] LABS: ALBUMIN 2.7 g/dl (3.4-5.0); BLOOD UREA NITROGEN 52.3 mg/dL (7-18)
[2022-07-10 11:24] LABS: CREATININE 2.4 mg/dL (0.55-1.3)
[2022-07-10 11:26] LABS: BILIRUBIN,TOTAL 0.6 mg/dL (0.2-1); TOT PROT 7.1 g/dl (6.4-8.2)
[2022-07-10] MEDS ORDERED: FLU VACC QS2022-23(6MOS UP)/PF 60 MCG/0.5 ML SYRINGE IM ONE (12:00)
[2022-07-10] MEDS: THIAMINE HCL 100 MG TABLET (FP) PO SCH (22:11)
[2022-07-10] MEDS: MELATONIN 5 MG TABLETS PO SCH (22:12)
[2022-07-11] MEDS: METHOCARBAMOL 500 MG TABLET PO PRN (05:14)
[2022-07-11] MEDS: hydrOXYzine PAMOATE 25 MG CAPSULE (FP) PO SCH ×5 (05:14→22:17)
[2022-07-11] MEDS: chlordiazePOXIDE HCL 25 MG CAPSULE PO SCH ×4 (05:14→22:18)
[2022-07-11] MEDS: metFORMIN HCL 500 MG TABLET (FP) PO SCH ×2 (06:17→17:48)
[2022-07-11] MEDS ORDERED: cloNIDine HCL 0.1 MG TABLET PO ONE (06:52)
[2022-07-11] MEDS: amLODIPine BESYLATE 10 MG TABLET (FP) PO SCH (10:33)
[2022-07-11] MEDS: ASPIRIN 81 MG CHEWABLE TABLETS PO SCH (10:33)
[2022-07-11] MEDS: levETIRAcetam 500 MG TABLET (FP) PO SCH ×2 (10:33→22:17)
[2022-07-11] MEDS: PRENATAL VITAMINS W/ FOLIC ACID TABLET (FP) PO SCH (10:33)
[2022-07-11] MEDS: ATENOLOL 50 MG TABLET (FP) PO SCH (10:34)
[2022-07-11 12:30] LABS: HEMATOCRIT 22.7 % (35.4-49); HEMOGLOBIN 7.5 GM/dL (11.7-16.9); MCH 30.3 pg (25.7-33.7); MEAN CELL VOLUME 91.9 fl (80-96); MEAN PLT VOLUME 6.8 fl (7.5-11.1); PLATELET COUNT 193 10^3/uL (134-434); RBC 2.47 M/mm3 (4.00-5.60); RDW 19.1 % (11.9-15.9); RETICULOCYTES 0.78 % (0.5-1.5); WHITE BLOOD COUNT 4.4 K/mm3 (4.0-10.0)
[2022-07-11 12:45] LABS: ALBUMIN 2.5 g/dl (3.4-5.0)
[2022-07-11 12:47] LABS: BILIRUBIN,TOTAL 0.2 mg/dL (0.2-1); TOT PROT 6.5 g/dl (6.4-8.2)
[2022-07-11 12:48] LABS: BLOOD UREA NITROGEN 47.7 mg/dL (7-18); CALCIUM 7.9 mg/dL (8.5-10.1); CREATININE 2.4 mg/dL (0.55-1.3)
[2022-07-11] MEDS: FERROUS SO4 325 MG TABLET (FP) PO SCH (17:48)
[2022-07-11] MEDS: THIAMINE HCL 100 MG TABLET (FP) PO SCH (22:17)
[2022-07-11] MEDS: MELATONIN 5 MG TABLETS PO SCH (22:17)
[2022-07-12] MEDS ORDERED: chlordiazePOXIDE HCL 10 MG CAPSULE PO PRN
[2022-07-12] MEDS: chlordiazePOXIDE HCL 10 MG CAPSULE PO SCH ×4 (05:13→22:09)
[2022-07-12] MEDS: hydrOXYzine PAMOATE 25 MG CAPSULE (FP) PO SCH ×5 (05:13→22:09)
[2022-07-12] MEDS: metFORMIN HCL 500 MG TABLET (FP) PO SCH ×2 (06:50→17:44)
[2022-07-12] MEDS: FERROUS SO4 325 MG TABLET (FP) PO SCH ×3 (07:27→17:44)
[2022-07-12] MEDS: PRENATAL VITAMINS W/ FOLIC ACID TABLET (FP) PO SCH (11:03)
[2022-07-12] MEDS: ASPIRIN 81 MG CHEWABLE TABLETS PO SCH (11:04)
[2022-07-12] MEDS: ATENOLOL 50 MG TABLET (FP) PO SCH (11:04)
[2022-07-12] MEDS: levETIRAcetam 500 MG TABLET (FP) PO SCH ×2 (11:04→22:09)
[2022-07-12] MEDS: amLODIPine BESYLATE 10 MG TABLET (FP) PO SCH (11:04)
[2022-07-12] MEDS: MELATONIN 5 MG TABLETS PO SCH (22:09)
[2022-07-12] MEDS: THIAMINE HCL 100 MG TABLET (FP) PO SCH (22:09)
[2022-07-13] MEDS: chlordiazePOXIDE HCL 10 MG CAPSULE PO SCH ×2 (05:21→17:36)
[2022-07-13] MEDS: hydrOXYzine PAMOATE 25 MG CAPSULE (FP) PO SCH ×5 (05:21→22:47)
[2022-07-13] MEDS: metFORMIN HCL 500 MG TABLET (FP) PO SCH ×2 (06:15→17:36)
[2022-07-13] MEDS: FERROUS SO4 325 MG TABLET (FP) PO SCH ×3 (07:02→17:37)
[2022-07-13] MEDS: ATENOLOL 50 MG TABLET (FP) PO SCH (10:21)
[2022-07-13] MEDS: METHOCARBAMOL 500 MG TABLET PO PRN (10:22)
[2022-07-13] MEDS: PRENATAL VITAMINS W/ FOLIC ACID TABLET (FP) PO SCH (10:22)
[2022-07-13] MEDS: ASPIRIN 81 MG CHEWABLE TABLETS PO SCH (10:22)
[2022-07-13] MEDS: levETIRAcetam 500 MG TABLET (FP) PO SCH ×2 (10:22→22:47)
[2022-07-13] MEDS: amLODIPine BESYLATE 10 MG TABLET (FP) PO SCH (10:22)
[2022-07-13 14:11] VITALS: RESP 18
[2022-07-13] MEDS: MELATONIN 5 MG TABLETS PO SCH (22:47)
[2022-07-13] MEDS: THIAMINE HCL 100 MG TABLET (FP) PO SCH (22:47)
[2022-07-14] MEDS ORDERED: chlordiazePOXIDE HCL 10 MG CAPSULE PO ONE (05:00)
[2022-07-14] MEDS: hydrOXYzine PAMOATE 25 MG CAPSULE (FP) PO SCH ×2 (05:28→11:12)
[2022-07-14] MEDS: FERROUS SO4 325 MG TABLET (FP) PO SCH ×2 (07:17→11:12)
[2022-07-14] MEDS: metFORMIN HCL 500 MG TABLET (FP) PO SCH (07:17)
[2022-07-14 09:33] VITALS: BP 140/77; PULSE 84; TEMP 97.7
[2022-07-14] MEDS: levETIRAcetam 500 MG TABLET (FP) PO SCH (11:11)
[2022-07-14] MEDS: ATENOLOL 50 MG TABLET (FP) PO SCH (11:11)
[2022-07-14] MEDS: ASPIRIN 81 MG CHEWABLE TABLETS PO SCH (11:12)
[2022-07-14] MEDS: amLODIPine BESYLATE 10 MG TABLET (FP) PO SCH (11:12)
[2022-07-14] MEDS: PRENATAL VITAMINS W/ FOLIC ACID TABLET (FP) PO SCH (11:12)
== END 2022-07-14 12:31 | disposition home or self-care (01) | DRG 775 ==
LOC: YASAS 11:28 → Y6N 13:39
PROVIDERS: ADMIT Allergy & Immunology; ATTEND Surgery
PROC: HZ2ZZZZ Detoxification Services for Substance Abuse Treatment (ICD-10-PCS; principal; 2022-07-09)
DX: F10.230 Alcohol dependence with withdrawal, uncomplicated (principal); D64.9 Anemia, unspecified; E78.5 Hyperlipidemia, unspecified; I25.10 Atherosclerotic heart disease of native coronary artery without angina pectoris; I10 Essential (primary) hypertension; I25.2 Old myocardial infarction; E11.9 Type 2 diabetes mellitus without complications; Z79.84 Long term (current) use of oral hypoglycemic drugs; R56.9 Unspecified convulsions; R76.8 Other specified abnormal immunological findings in serum; Z86.11 Personal history of tuberculosis; Z91.81 History of falling; Z99.89 Dependence on other enabling machines and devices; Z88.8 Allergy status to other drugs, medicaments and biological substances
CPT/HCPCS: 36415; 71046-TC-FY; 80053; 82607; 82746; 82962; 83540; 83550; 85027; 85045; 86593; 86780; 87811; 93005; 93010; C9803-CS; G0008; Q2036; U0003; U0005

== ENCOUNTER 2022-07-30 09:52 | Inpatient (IN) | payer OTHER ==
[2022-07-30 10:51] VITALS: BMI 28.7
[2022-07-30] MEDS ORDERED: BENZOCAINE/MENTHOL (CHLORASEPTIC ) LOZENGE MM PRN (11:10)
[2022-07-30] MEDS ORDERED: MAG HYDROX/AL HYDROX/SIMETH 30 ML UNIT-DOSE CUP PO PRN (11:10)
[2022-07-30] MEDS ORDERED: BISMUTH SUBSALICYLATE 524 MG/30 ML PO PRN (11:10)
[2022-07-30] MEDS ORDERED: MAGNESIUM CITRATE 300 ML BOTTLE PO PRN (11:10)
[2022-07-30] MEDS ORDERED: ONDANSETRON *ODT* 4 MG TABLET SL PRN (11:10)
[2022-07-30] MEDS ORDERED: MAGNESIUM HYDROX 2400MG/30ML ORAL SUSPENSION 30 ML CUP PO PRN (11:10)
[2022-07-30] MEDS ORDERED: LOPERAMIDE HCL 2 MG CAPSULE PO PRN (11:10)
[2022-07-30] MEDS ORDERED: METHOCARBAMOL 500 MG TABLET PO PRN (11:10)
[2022-07-30] MEDS ORDERED: IBUPROFEN 400 MG TABLET (FP) PO PRN (11:10)
[2022-07-30] MEDS ORDERED: DICYCLOMINE HCL 10 MG CAPSULE PO PRN (11:10)
[2022-07-30] MEDS ORDERED: IBUPROFEN 600 MG TABLET (FP) PO PRN (11:10)
[2022-07-30] MEDS ORDERED: ACETAMINOPHEN 325 MG TABLET (FP) PO PRN ×2 (11:10)
[2022-07-30] MEDS ORDERED: ATENOLOL 50 MG TABLET (FP) PO SCH (12:45)
[2022-07-30] MEDS ORDERED: amLODIPine BESYLATE 5 MG TABLET (FP) ONE (13:53)
[2022-07-30] MEDS ORDERED: ASPIRIN 81 MG CHEWABLE TABLETS ONE (13:53)
[2022-07-30] MEDS: amLODIPine BESYLATE 10 MG TABLET (FP) PO SCH (13:54)
[2022-07-30] MEDS: ASPIRIN 81 MG CHEWABLE TABLETS PO SCH (13:54)
[2022-07-30] MEDS ORDERED: ATENOLOL 25 MG TABLET (FP) PO SCH (15:00)
[2022-07-30] MEDS: metFORMIN HCL 500 MG TABLET (FP) PO SCH (18:00)
[2022-07-30] MEDS: hydrOXYzine PAMOATE 25 MG CAPSULE (FP) PO PRN (18:00)
[2022-07-30] MEDS: FERROUS SO4 325 MG TABLET (FP) PO SCH (18:00)
[2022-07-30] MEDS: ATENOLOL 25 MG TABLET (FP) PO SCH (18:01)
[2022-07-30] MEDS ORDERED: GEMFIBROZIL 600 MG TABLET (FP) PO SCH (22:00)
[2022-07-30] MEDS: THIAMINE HCL 100 MG TABLET (FP) PO SCH (22:32)
[2022-07-30] MEDS: levETIRAcetam 500 MG TABLET (FP) PO SCH (22:32)
[2022-07-30] MEDS: MELATONIN 5 MG TABLETS PO SCH (22:32)
[2022-07-30] MEDS: GEMFIBROZIL 600 MG TABLET (FP) PO SCH (23:02)
[2022-07-31] MEDS: GEMFIBROZIL 600 MG TABLET (FP) PO SCH ×2 (06:49→17:49)
[2022-07-31] MEDS: metFORMIN HCL 500 MG TABLET (FP) PO SCH ×2 (06:49→17:49)
[2022-07-31] MEDS: FERROUS SO4 325 MG TABLET (FP) PO SCH ×3 (07:26→17:49)
[2022-07-31] MEDS ORDERED: chlordiazePOXIDE HCL 25 MG CAPSULE PO PRN (10:15)
[2022-07-31] MEDS: levETIRAcetam 500 MG TABLET (FP) PO SCH ×2 (10:19→23:05)
[2022-07-31] MEDS: ASPIRIN 81 MG CHEWABLE TABLETS PO SCH (10:19)
[2022-07-31] MEDS: PRENATAL VITAMINS W/ FOLIC ACID TABLET (FP) PO SCH (10:19)
[2022-07-31] MEDS: amLODIPine BESYLATE 10 MG TABLET (FP) PO SCH (10:19)
[2022-07-31] MEDS: ATENOLOL 25 MG TABLET (FP) PO SCH (10:20)
[2022-07-31] MEDS: chlordiazePOXIDE HCL 25 MG CAPSULE PO SCH ×3 (11:25→23:06)
[2022-07-31 13:26] LABS: ALBUMIN 2.9 g/dl (3.4-5.0); BLOOD UREA NITROGEN 67.4 mg/dL (7-18); CALCIUM 8.1 mg/dL (8.5-10.1)
[2022-07-31 13:29] LABS: CREATININE 3.2 mg/dL (0.55-1.3)
[2022-07-31 13:31] LABS: BILIRUBIN,TOTAL 0.2 mg/dL (0.2-1); TOT PROT 7.1 g/dl (6.4-8.2)
[2022-07-31 13:37] LABS: HEMATOCRIT 23.7 % (35.4-49); HEMOGLOBIN 7.8 GM/dL (11.7-16.9); MCH 29.2 pg (25.7-33.7); MEAN CELL VOLUME 88.5 fl (80-96); MEAN PLT VOLUME 6.6 fl (7.5-11.1); PLATELET COUNT 315 10^3/uL (134-434); RBC 2.68 M/mm3 (4.00-5.60); RDW 17.5 % (11.9-15.9); WHITE BLOOD COUNT 5.6 K/mm3 (4.0-10.0)
[2022-07-31] MEDS: THIAMINE HCL 100 MG TABLET (FP) PO SCH (23:05)
[2022-07-31] MEDS: MELATONIN 5 MG TABLETS PO SCH (23:05)
[2022-08-01] MEDS: chlordiazePOXIDE HCL 25 MG CAPSULE PO SCH ×4 (05:09→22:18)
[2022-08-01] MEDS: GEMFIBROZIL 600 MG TABLET (FP) PO SCH ×2 (06:17→17:24)
[2022-08-01] MEDS: metFORMIN HCL 500 MG TABLET (FP) PO SCH ×2 (06:18→17:24)
[2022-08-01] MEDS: FERROUS SO4 325 MG TABLET (FP) PO SCH ×3 (07:32→17:24)
[2022-08-01] MEDS: TAMSULOSIN HCL 0.4 MG CAP PO SCH (09:01)
[2022-08-01] MEDS: PRENATAL VITAMINS W/ FOLIC ACID TABLET (FP) PO SCH (10:24)
[2022-08-01] MEDS: levETIRAcetam 500 MG TABLET (FP) PO SCH ×2 (10:24→22:18)
[2022-08-01] MEDS: amLODIPine BESYLATE 10 MG TABLET (FP) PO SCH (10:24)
[2022-08-01] MEDS: ASPIRIN 81 MG CHEWABLE TABLETS PO SCH (10:25)
[2022-08-01] MEDS: ATENOLOL 25 MG TABLET (FP) PO SCH (11:14)
[2022-08-01 15:26] LABS: HEMATOCRIT 26.4 % (35.4-49); HEMOGLOBIN 8.5 GM/dL (11.7-16.9); MCH 29.4 pg (25.7-33.7); MCHC 32.2 g/dl (32.0-35.9); MEAN CELL VOLUME 91.2 fl (80-96); MEAN PLT VOLUME 6.9 fl (7.5-11.1); PLATELET COUNT 331 10^3/uL (134-434); RBC 2.89 M/mm3 (4.00-5.60); RDW 18.2 % (11.9-15.9); WHITE BLOOD COUNT 5.7 K/mm3 (4.0-10.0)
[2022-08-01 17:42] LABS: BLOOD UREA NITROGEN 60.7 mg/dL (7-18); CALCIUM 8.1 mg/dL (8.5-10.1)
[2022-08-01 17:45] LABS: CREATININE 3.1 mg/dL (0.55-1.3)
[2022-08-01] MEDS: MELATONIN 5 MG TABLETS PO SCH (22:18)
[2022-08-01] MEDS: THIAMINE HCL 100 MG TABLET (FP) PO SCH (22:18)
[2022-08-02] MEDS: chlordiazePOXIDE HCL 25 MG CAPSULE PO SCH ×4 (05:32→22:54)
[2022-08-02] MEDS: GEMFIBROZIL 600 MG TABLET (FP) PO SCH ×2 (07:05→18:49)
[2022-08-02] MEDS: FERROUS SO4 325 MG TABLET (FP) PO SCH ×3 (07:05→18:49)
[2022-08-02] MEDS: metFORMIN HCL 500 MG TABLET (FP) PO SCH ×2 (07:05→18:50)
[2022-08-02] MEDS: TAMSULOSIN HCL 0.4 MG CAP PO SCH (09:07)
[2022-08-02] MEDS: ATENOLOL 50 MG TABLET (FP) PO SCH (09:14)
[2022-08-02] MEDS: amLODIPine BESYLATE 10 MG TABLET (FP) PO SCH (09:14)
[2022-08-02] MEDS: ASPIRIN 81 MG CHEWABLE TABLETS PO SCH (09:15)
[2022-08-02] MEDS: PRENATAL VITAMINS W/ FOLIC ACID TABLET (FP) PO SCH (09:15)
[2022-08-02] MEDS: levETIRAcetam 500 MG TABLET (FP) PO SCH ×2 (09:15→22:53)
[2022-08-02] MEDS: hydrOXYzine PAMOATE 25 MG CAPSULE (FP) PO PRN (13:18)
[2022-08-02] MEDS: ATORVASTATIN CA 20 MG TABLET (FP) PO SCH (22:53)
[2022-08-02] MEDS: MELATONIN 5 MG TABLETS PO SCH (22:53)
[2022-08-02] MEDS: THIAMINE HCL 100 MG TABLET (FP) PO SCH (22:54)
[2022-08-03] MEDS ORDERED: chlordiazePOXIDE HCL 10 MG CAPSULE PO PRN
[2022-08-03] MEDS: metFORMIN HCL 500 MG TABLET (FP) PO SCH ×2 (06:05→17:04)
[2022-08-03] MEDS: chlordiazePOXIDE HCL 10 MG CAPSULE PO SCH ×4 (06:05→22:01)
[2022-08-03] MEDS: GEMFIBROZIL 600 MG TABLET (FP) PO SCH ×2 (06:06→17:09)
[2022-08-03] MEDS: FERROUS SO4 325 MG TABLET (FP) PO SCH ×3 (07:10→17:09)
[2022-08-03] MEDS: levETIRAcetam 500 MG TABLET (FP) PO SCH ×2 (11:05→22:01)
[2022-08-03] MEDS: ATENOLOL 50 MG TABLET (FP) PO SCH (11:05)
[2022-08-03] MEDS: PRENATAL VITAMINS W/ FOLIC ACID TABLET (FP) PO SCH (11:05)
[2022-08-03] MEDS: TAMSULOSIN HCL 0.4 MG CAP PO SCH (11:05)
[2022-08-03] MEDS: ASPIRIN 81 MG CHEWABLE TABLETS PO SCH (11:05)
[2022-08-03] MEDS: amLODIPine BESYLATE 10 MG TABLET (FP) PO SCH (11:05)
[2022-08-03] MEDS: THIAMINE HCL 100 MG TABLET (FP) PO SCH (22:01)
[2022-08-03] MEDS: ATORVASTATIN CA 20 MG TABLET (FP) PO SCH (22:01)
[2022-08-03] MEDS: MELATONIN 5 MG TABLETS PO SCH (22:02)
[2022-08-04] MEDS ORDERED: INSULIN SLIDING SCALE (NOVOLOG) 1 VIAL SQ ONE (05:02)
[2022-08-04] MEDS: chlordiazePOXIDE HCL 10 MG CAPSULE PO SCH ×2 (06:16→17:52)
[2022-08-04] MEDS: metFORMIN HCL 500 MG TABLET (FP) PO SCH ×2 (06:16→17:45)
[2022-08-04] MEDS: GEMFIBROZIL 600 MG TABLET (FP) PO SCH ×2 (06:16→17:00)
[2022-08-04] MEDS: TAMSULOSIN HCL 0.4 MG CAP PO SCH (08:26)
[2022-08-04] MEDS: FERROUS SO4 325 MG TABLET (FP) PO SCH ×3 (08:26→17:53)
[2022-08-04] MEDS: ATENOLOL 50 MG TABLET (FP) PO SCH (10:20)
[2022-08-04] MEDS: PRENATAL VITAMINS W/ FOLIC ACID TABLET (FP) PO SCH (10:20)
[2022-08-04] MEDS: amLODIPine BESYLATE 10 MG TABLET (FP) PO SCH (10:20)
[2022-08-04] MEDS: ASPIRIN 81 MG CHEWABLE TABLETS PO SCH (10:20)
[2022-08-04] MEDS: levETIRAcetam 500 MG TABLET (FP) PO SCH ×2 (10:20→21:40)
[2022-08-04 13:03] VITALS: RESP 18
[2022-08-04] MEDS ORDERED: ATENOLOL 50 MG TABLET (FP) PO ONE (17:29)
[2022-08-04] MEDS: ATORVASTATIN CA 20 MG TABLET (FP) PO SCH (21:40)
[2022-08-04] MEDS: MELATONIN 5 MG TABLETS PO SCH (21:41)
[2022-08-04] MEDS: THIAMINE HCL 100 MG TABLET (FP) PO SCH (21:41)
[2022-08-04 23:04] VITALS: BP 163/101; PULSE 90; TEMP 98.8
[2022-08-05] MEDS ORDERED: chlordiazePOXIDE HCL 10 MG CAPSULE PO ONE (05:00)
[2022-08-05] MEDS: metFORMIN HCL 500 MG TABLET (FP) PO SCH (06:56)
[2022-08-05] MEDS: GEMFIBROZIL 600 MG TABLET (FP) PO SCH (06:56)
== END 2022-08-05 02:00 | disposition short-term general hospital (02) | DRG 775 ==
LOC: YASAS 09:52 → Y3N 12:56 → UNDOADMIN 12:56
PROVIDERS: ADMIT Allergy & Immunology; ATTEND Surgery
PROC: HZ2ZZZZ Detoxification Services for Substance Abuse Treatment (ICD-10-PCS; principal; 2022-07-30)
DX: F10.230 Alcohol dependence with withdrawal, uncomplicated (principal); F41.9 Anxiety disorder, unspecified; E78.1 Pure hyperglyceridemia; E11.9 Type 2 diabetes mellitus without complications; Z79.84 Long term (current) use of oral hypoglycemic drugs; I25.10 Atherosclerotic heart disease of native coronary artery without angina pectoris; I10 Essential (primary) hypertension; R06.09 Other forms of dyspnea; R41.82 Altered mental status, unspecified; Z91.81 History of falling; Z99.89 Dependence on other enabling machines and devices; Z88.8 Allergy status to other drugs, medicaments and biological substances; Z86.11 Personal history of tuberculosis; Z86.19 Personal history of other infectious and parasitic diseases; Z59.00 Homelessness unspecified
CPT/HCPCS: 36415; 80048; 80053; 82962; 85027; 86593; 86780; 87811; C9803-CS; U0003; U0005

== ENCOUNTER 2022-08-05 02:17 | Inpatient (IN) | payer OTHER ==
[2022-08-05 02:55] VITALS: BMI 45.9
[2022-08-05 03:46] LABS: BASO % 0.2 % (0-2.0); HEMATOCRIT 22.4 % (35.4-49); HEMOGLOBIN 7.5 GM/dL (11.7-16.9); LYMPH % 28.2 % (8-40); MCH 29.4 pg (25.7-33.7); MCHC 33.3 g/dl (32.0-35.9); MEAN CELL VOLUME 88.2 fl (80-96); MEAN PLT VOLUME 5.9 fl (7.5-11.1); MONO % 9.1 % (3.8-10.2); NEUT % 58.5 % (42.8-82.8); PLATELET COUNT 263 10^3/uL (134-434); RBC 2.54 M/mm3 (4.00-5.60); RDW 17.5 % (11.9-15.9); WHITE BLOOD COUNT 7.1 K/mm3 (4.0-10.0)
[2022-08-05 04:10] LABS: EPI CELLS 11 /uL (0-25.1); HYALINE CASTS 1 /uL (0-3.1); PH,URINE 5.5 (5.0-8.0); URINE APPEARANCE CLEAR; URINE BACTERIA 9 /uL (0-1359); URINE BILIRUBIN NEGATIVE (NEGATIVE); URINE COLOR YELLOW; URINE GLUCOSE (UA) NEGATIVE (NEGATIVE); URINE KETONE NEGATIVE (NEGATIVE); URINE LEUK ESTERASE NEGATIVE (NEGATIVE); URINE NITRITE NEGATIVE (NEGATIVE); URINE PROTEIN 3+ (NEGATIVE); URINE RBC 618 /uL (0-23.9); URINE UROBILINOGEN 0.2 mg/dL (0.2-1.0); URINE WBC 25 /uL (0-25.8)
[2022-08-05 04:16] LABS: ALBUMIN 2.7 g/dl (3.4-5.0); BLOOD UREA NITROGEN 55.3 mg/dL (7-18); MAGNESIUM 1.2 mg/dL (1.8-2.4)
[2022-08-05 04:20] LABS: BILIRUBIN,TOTAL 0.2 mg/dL (0.2-1); TOT PROT 6.9 g/dl (6.4-8.2)
[2022-08-05] MEDS ORDERED: LACTATED RINGERS SOLUTION 1000 ML INFUS.BAG IV ONE (04:44)
[2022-08-05] MEDS ORDERED: THIAMINE HCL 200 MG/2 ML VIAL IVPB ONE (06:45)
[2022-08-05] MEDS ORDERED: FOLIC ACID 5 MG/1 ML SQ ONE (06:45)
[2022-08-05] MEDS ORDERED: FOLIC ACID INJECTION - 1 MG, THIAMINE HCL 100 MG, MULTIVIT INJECTION ADULT 10 ML in SOD... IVPB ONE (06:54)
[2022-08-05] MEDS ORDERED: amLODIPine BESYLATE 10 MG TABLET (FP) PO ONE (07:40)
[2022-08-05] MEDS ORDERED: amLODIPine BESYLATE 10 MG TABLET (FP) ONE (08:01)
[2022-08-05] MEDS ORDERED: MAGNESIUM SULF 50% (8.12 MEQ/2 ML-1 GM VIAL) IVPB ONE ×2 (18:41→22:00)
[2022-08-05] MEDS ORDERED: MAGNESIUM SULFATE IN WATER 2 GM/50 ML IVPB IVPB ONE ×2 (18:55→22:10)
[2022-08-05] MEDS ORDERED: HEPARIN NA (PORCINE) 5,000 UNITS/ML 1ML VIAL ONE (22:10)
[2022-08-05] MEDS ORDERED: hydrALAZINE HCL 10 MG TABLET ONE (22:10)
[2022-08-05] MEDS ORDERED: CARVEDILOL 12.5 MG TABLET (FP) ONE (22:10)
[2022-08-05] MEDS: hydrALAZINE HCL 10 MG TABLET PO SCH (22:22)
[2022-08-05] MEDS: CARVEDILOL 12.5 MG TABLET (FP) PO SCH (22:22)
[2022-08-05] MEDS: HEPARIN NA (PORCINE) 5,000 UNITS/ML 1ML VIAL SQ SCH (22:22)
[2022-08-06] MEDS: HEPARIN NA (PORCINE) 5,000 UNITS/ML 1ML VIAL SQ SCH ×3 (05:39→21:08)
[2022-08-06 08:34] LABS: BASO % 1.3 % (0-2.0); HEMOGLOBIN 7.4 GM/dL (11.7-16.9); LYMPH % 20.9 % (8-40); MCH 29.3 pg (25.7-33.7); MCHC 33.4 g/dl (32.0-35.9); MEAN CELL VOLUME 87.9 fl (80-96); MEAN PLT VOLUME 6.1 fl (7.5-11.1); MONO % 10.3 % (3.8-10.2); NEUT % 63.5 % (42.8-82.8); PLATELET COUNT 241 10^3/uL (134-434); RBC 2.51 M/mm3 (4.00-5.60); RDW 17.4 % (11.9-15.9); WHITE BLOOD COUNT 6.8 K/mm3 (4.0-10.0)
[2022-08-06 08:59] LABS: ALBUMIN 2.6 g/dl (3.4-5.0); BLOOD UREA NITROGEN 53.7 mg/dL (7-18); CALCIUM 7.7 mg/dL (8.5-10.1)
[2022-08-06 09:03] LABS: BILIRUBIN,TOTAL 0.2 mg/dL (0.2-1); CREATININE 3.1 mg/dL (0.55-1.3); PHOSPHOROUS 4.4 mg/dL (2.5-4.9); TOT PROT 6.5 g/dl (6.4-8.2)
[2022-08-06] MEDS: hydrALAZINE HCL 10 MG TABLET PO SCH (09:03)
[2022-08-06] MEDS: CARVEDILOL 12.5 MG TABLET (FP) PO SCH (09:03)
[2022-08-06] MEDS: CEFTRIAXONE 1 GM in DEXTROSE 5%-WATER - 50 ML IVPB SCH (10:23)
[2022-08-06] MEDS ORDERED: hydrALAZINE HCL 10 MG TABLET PO SCH (11:16)
[2022-08-06] MEDS: hydrALAZINE HCL 25 MG TABLET (FP) PO SCH ×2 (18:18→21:08)
[2022-08-06] MEDS: CARVEDILOL 25 MG TABLET (FP) PO SCH (21:08)
[2022-08-07] MEDS: hydrALAZINE HCL 25 MG TABLET (FP) PO SCH ×3 (05:36→21:32)
[2022-08-07] MEDS ORDERED: TAMSULOSIN HCL 0.4 MG CAP PO SCH (08:30)
[2022-08-07 08:39] LABS: HEMATOCRIT 21.3 % (35.4-49); HEMOGLOBIN 7.3 GM/dL (11.7-16.9); LYMPH % 27.7 % (8-40); MCHC 34.1 g/dl (32.0-35.9); MEAN PLT VOLUME 6.3 fl (7.5-11.1); MONO % 10.6 % (3.8-10.2); NEUT % 56.7 % (42.8-82.8); PLATELET COUNT 228 10^3/uL (134-434); RBC 2.42 M/mm3 (4.00-5.60); RDW 17.5 % (11.9-15.9); WHITE BLOOD COUNT 5.7 K/mm3 (4.0-10.0)
[2022-08-07 08:54] LABS: CALCIUM 8.3 mg/dL (8.5-10.1)
[2022-08-07 08:55] LABS: ALBUMIN 2.6 g/dl (3.4-5.0); BLOOD UREA NITROGEN 58.2 mg/dL (7-18)
[2022-08-07 08:58] LABS: CREATININE 3.2 mg/dL (0.55-1.3)
[2022-08-07 08:59] LABS: TOT PROT 6.4 g/dl (6.4-8.2)
[2022-08-07 09:00] LABS: BILIRUBIN,TOTAL 0.2 mg/dL (0.2-1)
[2022-08-07] MEDS: CARVEDILOL 25 MG TABLET (FP) PO SCH ×2 (09:21→21:32)
[2022-08-07] MEDS: CEFTRIAXONE 1 GM in DEXTROSE 5%-WATER - 50 ML IVPB SCH (09:22)
[2022-08-07] MEDS ORDERED: FOLIC ACID 1 MG TABLET (FP) PO SCH (13:30)
[2022-08-07] MEDS ORDERED: LIDOCAINE 5% TOPICAL PATCH TP SCH (16:15)
[2022-08-07] MEDS ORDERED: LIDOCAINE PATCH REMOVAL MC SCH (22:00)
[2022-08-08] MEDS: hydrALAZINE HCL 25 MG TABLET (FP) PO SCH ×3 (06:13→21:02)
[2022-08-08] MEDS: FOLIC ACID 1 MG TABLET (FP) PO SCH (09:46)
[2022-08-08] MEDS: TAMSULOSIN HCL 0.4 MG CAP PO SCH (09:46)
[2022-08-08] MEDS: CARVEDILOL 25 MG TABLET (FP) PO SCH ×2 (09:46→21:02)
[2022-08-08] MEDS: LIDOCAINE 5% TOPICAL PATCH TP SCH (15:38)
[2022-08-08] MEDS ORDERED: LORazepam 2 MG/ML SDV VIAL IM ONE ×2 (18:06→18:17)
[2022-08-08] MEDS ORDERED: LORazepam 2 MG/ML SDV VIAL IVPB ONE (18:06)
[2022-08-08 21:11] LABS: ATYPICAL pANCA <1:20 titer (Neg:<1:20); C-ANCA <1:20 titer (Neg:<1:20)
[2022-08-08] MEDS: LORazepam 2 MG/ML SDV VIAL IM PRN (23:10)
[2022-08-08] MEDS: LIDOCAINE PATCH REMOVAL MC SCH (23:18)
[2022-08-09] MEDS: hydrALAZINE HCL 25 MG TABLET (FP) PO SCH ×4 (00:05→22:02)
[2022-08-09] MEDS: CARVEDILOL 25 MG TABLET (FP) PO SCH ×3 (00:05→22:02)
[2022-08-09] MEDS: TAMSULOSIN HCL 0.4 MG CAP PO SCH (08:24)
[2022-08-09 10:27] LABS: EOS % 4.6 % (0-4.5); HEMATOCRIT 26.5 % (35.4-49); HEMOGLOBIN 8.7 GM/dL (11.7-16.9); MCH 29.1 pg (25.7-33.7); MCHC 32.9 g/dl (32.0-35.9); MEAN CELL VOLUME 88.5 fl (80-96); MEAN PLT VOLUME 6.9 fl (7.5-11.1); MONO % 9.6 % (3.8-10.2); NEUT % 62.8 % (42.8-82.8); PLATELET COUNT 313 10^3/uL (134-434); RDW 17.5 % (11.9-15.9)
[2022-08-09 10:29] LABS: INR 1.03 (0.83-1.09); PROTHROMBIN TIME (PATIENT) 11.9 SEC (9.7-13.0)
[2022-08-09 10:32] LABS: ACTIVATED PTT 37.4 SECONDS (25.2-36.5)
[2022-08-09 10:56] LABS: CALCIUM 8.7 mg/dL (8.5-10.1)
[2022-08-09 10:57] LABS: BLOOD UREA NITROGEN 51.5 mg/dL (7-18)
[2022-08-09] MEDS: FOLIC ACID 1 MG TABLET (FP) PO SCH (10:59)
[2022-08-09] MEDS: LIDOCAINE 5% TOPICAL PATCH TP SCH (10:59)
[2022-08-09 11:00] LABS: CREATININE 3.2 mg/dL (0.55-1.3)
[2022-08-09 11:01] LABS: BILIRUBIN,TOTAL 0.2 mg/dL (0.2-1); TOT PROT 7.7 g/dl (6.4-8.2)
[2022-08-09 11:16] LABS: ALBUMIN 3.2 g/dl (3.4-5.0)
[2022-08-09] MEDS ORDERED: HALOPERIDOL LACTATE 5 MG/ML IM ONE ×2 (14:14→14:25)
[2022-08-09] MEDS: LORazepam 2 MG/ML SDV VIAL IM PRN (14:30)
[2022-08-09] MEDS: levETIRAcetam 500 MG TABLET (FP) PO SCH ×2 (14:34→22:02)
[2022-08-09] MEDS: OLANZapine 10 MG TABLET PO SCH (22:02)
[2022-08-09] MEDS: LIDOCAINE PATCH REMOVAL MC SCH (22:02)
[2022-08-10] MEDS: hydrALAZINE HCL 25 MG TABLET (FP) PO SCH ×3 (06:08→21:36)
[2022-08-10] MEDS: TAMSULOSIN HCL 0.4 MG CAP PO SCH (09:12)
[2022-08-10] MEDS: FOLIC ACID 1 MG TABLET (FP) PO SCH (09:12)
[2022-08-10] MEDS: levETIRAcetam 500 MG TABLET (FP) PO SCH ×2 (09:12→21:36)
[2022-08-10] MEDS: CARVEDILOL 25 MG TABLET (FP) PO SCH ×2 (09:12→21:36)
[2022-08-10] MEDS: LIDOCAINE 5% TOPICAL PATCH TP SCH (09:12)
[2022-08-10 11:26] LABS: BASO % 1.2 % (0-2.0); EOS % 4.7 % (0-4.5); HEMATOCRIT 23.9 % (35.4-49); HEMOGLOBIN 7.8 GM/dL (11.7-16.9); LYMPH % 26.2 % (8-40); MCH 28.9 pg (25.7-33.7); MCHC 32.7 g/dl (32.0-35.9); MEAN CELL VOLUME 88.2 fl (80-96); MONO % 11.7 % (3.8-10.2); NEUT % 56.2 % (42.8-82.8); PLATELET COUNT 267 10^3/uL (134-434); RBC 2.71 M/mm3 (4.00-5.60); RDW 17.3 % (11.9-15.9); WHITE BLOOD COUNT 5.4 K/mm3 (4.0-10.0)
[2022-08-10 11:51] LABS: CALCIUM 8.5 mg/dL (8.5-10.1)
[2022-08-10 11:52] LABS: ALBUMIN 2.9 g/dl (3.4-5.0); BLOOD UREA NITROGEN 51.1 mg/dL (7-18)
[2022-08-10 11:55] LABS: CREATININE 3.3 mg/dL (0.55-1.3)
[2022-08-10 11:57] LABS: BILIRUBIN,TOTAL 0.2 mg/dL (0.2-1); TOT PROT 6.7 g/dl (6.4-8.2)
[2022-08-10 15:07] LABS: TOTAL PROTEIN, URINE 172.3 mg/dL (Not Estab.)
[2022-08-10] MEDS: HALOPERIDOL LACTATE 5 MG/ML IM PRN (16:37)
[2022-08-10] MEDS: LORazepam 2 MG/ML SDV VIAL IM PRN (17:07)
[2022-08-10] MEDS: OLANZapine 10 MG TABLET PO SCH (21:36)
[2022-08-10] MEDS: LIDOCAINE PATCH REMOVAL MC SCH (21:37)
[2022-08-11] MEDS: hydrALAZINE HCL 25 MG TABLET (FP) PO SCH ×3 (06:22→23:44)
[2022-08-11] MEDS: levETIRAcetam 500 MG TABLET (FP) PO SCH ×2 (11:42→23:44)
[2022-08-11] MEDS: CARVEDILOL 25 MG TABLET (FP) PO SCH ×2 (11:42→23:44)
[2022-08-11] MEDS: TAMSULOSIN HCL 0.4 MG CAP PO SCH (11:42)
[2022-08-11] MEDS: FOLIC ACID 1 MG TABLET (FP) PO SCH (11:42)
[2022-08-11] MEDS: LIDOCAINE 5% TOPICAL PATCH TP SCH (11:44)
[2022-08-11] MEDS: OLANZapine 10 MG TABLET PO SCH (23:44)
[2022-08-11] MEDS: LIDOCAINE PATCH REMOVAL MC SCH (23:49)
[2022-08-12] MEDS: hydrALAZINE HCL 25 MG TABLET (FP) PO SCH ×3 (05:42→21:46)
[2022-08-12] MEDS: levETIRAcetam 500 MG TABLET (FP) PO SCH ×2 (09:43→21:46)
[2022-08-12] MEDS: TAMSULOSIN HCL 0.4 MG CAP PO SCH (09:43)
[2022-08-12] MEDS: CARVEDILOL 25 MG TABLET (FP) PO SCH ×2 (09:43→21:46)
[2022-08-12] MEDS: FOLIC ACID 1 MG TABLET (FP) PO SCH (09:43)
[2022-08-12] MEDS: LIDOCAINE 5% TOPICAL PATCH TP SCH ×2 (09:48→10:29)
[2022-08-12 10:32] LABS: BASO % 1.1 % (0-2.0); EOS % 4.8 % (0-4.5); HEMATOCRIT 25.4 % (35.4-49); HEMOGLOBIN 8.7 GM/dL (11.7-16.9); LYMPH % 21.8 % (8-40); MCH 30.4 pg (25.7-33.7); MCHC 34.1 g/dl (32.0-35.9); MEAN CELL VOLUME 89.3 fl (80-96); MEAN PLT VOLUME 6.8 fl (7.5-11.1); MONO % 9.7 % (3.8-10.2); NEUT % 62.6 % (42.8-82.8); RBC 2.84 M/mm3 (4.00-5.60); RDW 17.5 % (11.9-15.9); WHITE BLOOD COUNT 8.3 K/mm3 (4.0-10.0)
[2022-08-12 10:51] LABS: BLOOD UREA NITROGEN 59.7 mg/dL (7-18); CALCIUM 8.7 mg/dL (8.5-10.1); MAGNESIUM 1.6 mg/dL (1.8-2.4)
[2022-08-12 10:55] LABS: BILIRUBIN,TOTAL 0.2 mg/dL (0.2-1); CREATININE 3.5 mg/dL (0.55-1.3)
[2022-08-12 11:36] LABS: PLATELET COUNT 192 10^3/uL (134-434)
[2022-08-12] MEDS ORDERED: MAGNESIUM OXIDE 400 MG TABLET (FP) PO ONE ×2 (12:12→13:45)
[2022-08-12] MEDS: OLANZapine 10 MG TABLET PO SCH (21:46)
[2022-08-12] MEDS: LIDOCAINE PATCH REMOVAL MC SCH (22:06)
[2022-08-13] MEDS: hydrALAZINE HCL 25 MG TABLET (FP) PO SCH ×4 (06:12→21:18)
[2022-08-13] MEDS: TAMSULOSIN HCL 0.4 MG CAP PO SCH (09:02)
[2022-08-13] MEDS: CARVEDILOL 25 MG TABLET (FP) PO SCH ×3 (09:02→21:18)
[2022-08-13] MEDS: FOLIC ACID 1 MG TABLET (FP) PO SCH (09:02)
[2022-08-13] MEDS: LIDOCAINE 5% TOPICAL PATCH TP SCH ×2 (09:02→09:06)
[2022-08-13] MEDS: levETIRAcetam 500 MG TABLET (FP) PO SCH ×3 (09:02→21:18)
[2022-08-13 11:59] LABS: EOS % 5.4 % (0-4.5); HEMATOCRIT 22.1 % (35.4-49); HEMOGLOBIN 7.5 GM/dL (11.7-16.9); LYMPH % 22.8 % (8-40); MCH 29.9 pg (25.7-33.7); MCHC 33.9 g/dl (32.0-35.9); MEAN CELL VOLUME 88.3 fl (80-96); NEUT % 59.8 % (42.8-82.8); PLATELET COUNT 281 10^3/uL (134-434); RDW 17.5 % (11.9-15.9); WHITE BLOOD COUNT 8.1 K/mm3 (4.0-10.0)
[2022-08-13 12:18] LABS: ALBUMIN 2.7 g/dl (3.4-5.0); BLOOD UREA NITROGEN 63.2 mg/dL (7-18); CALCIUM 8.1 mg/dL (8.5-10.1); MAGNESIUM 1.7 mg/dL (1.8-2.4)
[2022-08-13 12:22] LABS: CREATININE 3.6 mg/dL (0.55-1.3)
[2022-08-13 12:24] LABS: BILIRUBIN,TOTAL 0.2 mg/dL (0.2-1); TOT PROT 6.8 g/dl (6.4-8.2)
[2022-08-13] MEDS ORDERED: MAGNESIUM OXIDE 400 MG TABLET (FP) PO ONE (12:28)
[2022-08-13] MEDS: LORazepam 2 MG/ML SDV VIAL IM PRN (20:57)
[2022-08-13] MEDS: LIDOCAINE PATCH REMOVAL MC SCH (20:59)
[2022-08-13] MEDS: OLANZapine 10 MG TABLET PO SCH ×2 (20:59→21:18)
[2022-08-14] MEDS: levETIRAcetam 500 MG TABLET (FP) PO SCH ×3 (01:00→22:23)
[2022-08-14] MEDS: OLANZapine 10 MG TABLET PO SCH ×2 (01:00→22:23)
[2022-08-14] MEDS: hydrALAZINE HCL 25 MG TABLET (FP) PO SCH ×3 (01:00→15:37)
[2022-08-14] MEDS: CARVEDILOL 25 MG TABLET (FP) PO SCH ×3 (01:00→22:23)
[2022-08-14] MEDS: TAMSULOSIN HCL 0.4 MG CAP PO SCH (09:21)
[2022-08-14] MEDS: FOLIC ACID 1 MG TABLET (FP) PO SCH (10:44)
[2022-08-14] MEDS: LIDOCAINE 5% TOPICAL PATCH TP SCH (10:46)
[2022-08-14] MEDS: hydrALAZINE HCL 50 MG TABLET (FP) PO SCH ×2 (15:37→22:24)
[2022-08-14] MEDS: LIDOCAINE PATCH REMOVAL MC SCH (22:36)
[2022-08-15] MEDS: hydrALAZINE HCL 50 MG TABLET (FP) PO SCH ×3 (06:49→23:59)
[2022-08-15] MEDS: FOLIC ACID 1 MG TABLET (FP) PO SCH (09:31)
[2022-08-15] MEDS: TAMSULOSIN HCL 0.4 MG CAP PO SCH (09:31)
[2022-08-15] MEDS: levETIRAcetam 500 MG TABLET (FP) PO SCH ×2 (09:31→23:59)
[2022-08-15] MEDS: CARVEDILOL 25 MG TABLET (FP) PO SCH ×2 (09:31→23:59)
[2022-08-15] MEDS: LIDOCAINE 5% TOPICAL PATCH TP SCH (09:32)
[2022-08-15 10:25] LABS: EOS % 5.3 % (0-4.5); HEMOGLOBIN 7.6 GM/dL (11.7-16.9); LYMPH % 25.9 % (8-40); MCH 29.2 pg (25.7-33.7); MCHC 33.2 g/dl (32.0-35.9); MEAN PLT VOLUME 6.7 fl (7.5-11.1); MONO % 10.1 % (3.8-10.2); NEUT % 57.7 % (42.8-82.8); PLATELET COUNT 279 10^3/uL (134-434); RBC 2.62 M/mm3 (4.00-5.60); RDW 17.2 % (11.9-15.9); WHITE BLOOD COUNT 6.2 K/mm3 (4.0-10.0)
[2022-08-15 10:57] LABS: ALBUMIN 2.7 g/dl (3.4-5.0); BLOOD UREA NITROGEN 70.3 mg/dL (7-18); CALCIUM 8.7 mg/dL (8.5-10.1); MAGNESIUM 1.7 mg/dL (1.8-2.4)
[2022-08-15 11:00] LABS: CREATININE 3.5 mg/dL (0.55-1.3)
[2022-08-15 11:01] LABS: BILIRUBIN,TOTAL 0.2 mg/dL (0.2-1); TOT PROT 6.5 g/dl (6.4-8.2)
[2022-08-15 12:09] LABS: HIV INTERPRETATION NEGATIVE (NEGATIVE)
[2022-08-15] MEDS: amLODIPine BESYLATE 10 MG TABLET (FP) PO SCH (17:54)
[2022-08-15] MEDS: OLANZapine 10 MG TABLET PO SCH (23:59)
[2022-08-15] MEDS: ATORVASTATIN CA 20 MG TABLET (FP) PO SCH (23:59)
[2022-08-16] MEDS: hydrALAZINE HCL 50 MG TABLET (FP) PO SCH ×4 (06:47→23:30)
[2022-08-16] MEDS: HALOPERIDOL LACTATE 5 MG/ML IM PRN (09:06)
[2022-08-16] MEDS: FOLIC ACID 1 MG TABLET (FP) PO SCH (09:38)
[2022-08-16] MEDS: CARVEDILOL 25 MG TABLET (FP) PO SCH ×2 (09:38→23:29)
[2022-08-16] MEDS: TAMSULOSIN HCL 0.4 MG CAP PO SCH (09:38)
[2022-08-16] MEDS: amLODIPine BESYLATE 10 MG TABLET (FP) PO SCH (09:39)
[2022-08-16] MEDS: levETIRAcetam 500 MG TABLET (FP) PO SCH ×2 (09:39→23:29)
[2022-08-16] MEDS: FERROUS SO4 325 MG TABLET (FP) PO SCH ×3 (09:39→17:12)
[2022-08-16] MEDS: LIDOCAINE 5% TOPICAL PATCH TP SCH (09:39)
[2022-08-16] MEDS: OLANZapine 10 MG TABLET PO SCH ×2 (09:43→23:30)
[2022-08-16] MEDS ORDERED: LORazepam 2 MG/ML SDV VIAL IM SCH (11:00)
[2022-08-16] MEDS ORDERED: LORazepam 2 MG/ML SDV VIAL IM PRN (11:07)
[2022-08-16] MEDS ORDERED: hydrALAZINE HCL 50 MG TABLET (FP) PO SCH (11:30)
[2022-08-16] MEDS: DOXYCYCLINE HYCLATE 100 MG CAPSULE PO SCH ×2 (12:45→17:12)
[2022-08-16] MEDS: LORazepam 1 MG TABLET PO SCH ×2 (13:31→22:16)
[2022-08-16] MEDS: LIDOCAINE PATCH REMOVAL MC SCH ×2 (23:30)
[2022-08-16] MEDS: ATORVASTATIN CA 20 MG TABLET (FP) PO SCH (23:30)
[2022-08-17] MEDS: ACETAMINOPHEN 500 MG TABLET (FP) PO PRN (03:01)
[2022-08-17] MEDS: LORazepam 1 MG TABLET PO SCH ×3 (06:43→21:41)
[2022-08-17] MEDS: hydrALAZINE HCL 50 MG TABLET (FP) PO SCH ×3 (06:43→18:09)
[2022-08-17] MEDS: levETIRAcetam 500 MG TABLET (FP) PO SCH ×2 (09:01→21:41)
[2022-08-17] MEDS: amLODIPine BESYLATE 10 MG TABLET (FP) PO SCH (09:01)
[2022-08-17] MEDS: CARVEDILOL 25 MG TABLET (FP) PO SCH ×2 (09:01→21:41)
[2022-08-17] MEDS: TAMSULOSIN HCL 0.4 MG CAP PO SCH (09:01)
[2022-08-17] MEDS: FERROUS SO4 325 MG TABLET (FP) PO SCH ×3 (09:01→18:09)
[2022-08-17] MEDS: FOLIC ACID 1 MG TABLET (FP) PO SCH (09:02)
[2022-08-17] MEDS: OLANZapine 10 MG TABLET PO SCH ×2 (09:03→21:41)
[2022-08-17] MEDS: DOXYCYCLINE HYCLATE 100 MG CAPSULE PO SCH ×2 (09:15→18:09)
[2022-08-17] MEDS: LIDOCAINE 5% TOPICAL PATCH TP SCH (09:17)
[2022-08-17] MEDS: HALOPERIDOL LACTATE 5 MG/ML IM PRN (10:26)
[2022-08-17 11:55] LABS: BASO % 0.9 % (0-2.0); EOS % 4.9 % (0-4.5); HEMATOCRIT 23.7 % (35.4-49); HEMOGLOBIN 7.8 GM/dL (11.7-16.9); LYMPH % 21.7 % (8-40); MCH 28.9 pg (25.7-33.7); MCHC 33.1 g/dl (32.0-35.9); MEAN CELL VOLUME 87.1 fl (80-96); MEAN PLT VOLUME 7.1 fl (7.5-11.1); MONO % 9.1 % (3.8-10.2); NEUT % 63.4 % (42.8-82.8); PLATELET COUNT 292 10^3/uL (134-434); RBC 2.72 M/mm3 (4.00-5.60); RDW 16.7 % (11.9-15.9); WHITE BLOOD COUNT 6.9 K/mm3 (4.0-10.0)
[2022-08-17 12:12] LABS: ALBUMIN 2.8 g/dl (3.4-5.0); BLOOD UREA NITROGEN 70.6 mg/dL (7-18); CALCIUM 8.8 mg/dL (8.5-10.1)
[2022-08-17 12:13] LABS: MAGNESIUM 1.5 mg/dL (1.8-2.4)
[2022-08-17 12:14] LABS: CREATININE 3.2 mg/dL (0.55-1.3)
[2022-08-17 12:16] LABS: BILIRUBIN,TOTAL 0.3 mg/dL (0.2-1); TOT PROT 6.7 g/dl (6.4-8.2)
[2022-08-17] MEDS: MAGNESIUM OXIDE 400 MG TABLET (FP) PO SCH (12:43)
[2022-08-17] MEDS: ATORVASTATIN CA 20 MG TABLET (FP) PO SCH (21:41)
[2022-08-17] MEDS: LIDOCAINE PATCH REMOVAL MC SCH (21:42)
[2022-08-18] MEDS: hydrALAZINE HCL 50 MG TABLET (FP) PO SCH ×5 (00:38→22:45)
[2022-08-18] MEDS: MAGNESIUM OXIDE 400 MG TABLET (FP) PO SCH ×3 (00:39→13:17)
[2022-08-18] MEDS: HALOPERIDOL LACTATE 5 MG/ML IM PRN (03:22)
[2022-08-18] MEDS: LORazepam 1 MG TABLET PO SCH ×3 (06:37→22:25)
[2022-08-18] MEDS: levETIRAcetam 500 MG TABLET (FP) PO SCH ×2 (09:41→22:25)
[2022-08-18] MEDS: TAMSULOSIN HCL 0.4 MG CAP PO SCH (09:41)
[2022-08-18] MEDS: CARVEDILOL 25 MG TABLET (FP) PO SCH ×2 (09:41→22:25)
[2022-08-18] MEDS: DOXYCYCLINE HYCLATE 100 MG CAPSULE PO SCH ×3 (09:41→18:42)
[2022-08-18] MEDS: FOLIC ACID 1 MG TABLET (FP) PO SCH (09:41)
[2022-08-18] MEDS: amLODIPine BESYLATE 10 MG TABLET (FP) PO SCH (09:41)
[2022-08-18] MEDS: FERROUS SO4 325 MG TABLET (FP) PO SCH ×3 (09:42→18:35)
[2022-08-18] MEDS: LIDOCAINE 5% TOPICAL PATCH TP SCH (09:42)
[2022-08-18] MEDS: OLANZapine 10 MG TABLET PO SCH ×2 (09:42→22:25)
[2022-08-18 11:37] LABS: EOS % 4.9 % (0-4.5); HEMATOCRIT 23.9 % (35.4-49); HEMOGLOBIN 7.9 GM/dL (11.7-16.9); LYMPH % 22.9 % (8-40); MCH 28.8 pg (25.7-33.7); MCHC 33.1 g/dl (32.0-35.9); MEAN CELL VOLUME 86.9 fl (80-96); MONO % 7.6 % (3.8-10.2); NEUT % 63.6 % (42.8-82.8); PLATELET COUNT 322 10^3/uL (134-434); RBC 2.75 M/mm3 (4.00-5.60); RDW 16.8 % (11.9-15.9)
[2022-08-18 11:59] LABS: BLOOD UREA NITROGEN 76.1 mg/dL (7-18); CALCIUM 8.8 mg/dL (8.5-10.1)
[2022-08-18 12:00] LABS: ALBUMIN 2.9 g/dl (3.4-5.0); MAGNESIUM 1.8 mg/dL (1.8-2.4)
[2022-08-18 12:03] LABS: BILIRUBIN,TOTAL 0.2 mg/dL (0.2-1); CREATININE 3.5 mg/dL (0.55-1.3); PHOSPHOROUS 5.4 mg/dL (2.5-4.9); TOT PROT 7.1 g/dl (6.4-8.2)
[2022-08-18] MEDS: ATORVASTATIN CA 20 MG TABLET (FP) PO SCH (22:25)
[2022-08-18] MEDS: LIDOCAINE PATCH REMOVAL MC SCH (22:28)
[2022-08-19] MEDS: LORazepam 1 MG TABLET PO SCH ×3 (05:44→23:22)
[2022-08-19] MEDS: hydrALAZINE HCL 50 MG TABLET (FP) PO SCH ×4 (05:44→23:24)
[2022-08-19] MEDS: FERROUS SO4 325 MG TABLET (FP) PO SCH ×3 (09:30→17:36)
[2022-08-19] MEDS: levETIRAcetam 500 MG TABLET (FP) PO SCH ×2 (09:30→23:24)
[2022-08-19] MEDS: CARVEDILOL 25 MG TABLET (FP) PO SCH ×2 (09:30→23:24)
[2022-08-19] MEDS: DOXYCYCLINE HYCLATE 100 MG CAPSULE PO SCH ×2 (09:30→17:36)
[2022-08-19] MEDS: amLODIPine BESYLATE 10 MG TABLET (FP) PO SCH (09:31)
[2022-08-19] MEDS: TAMSULOSIN HCL 0.4 MG CAP PO SCH (09:31)
[2022-08-19] MEDS: OLANZapine 10 MG TABLET PO SCH ×2 (09:31→23:24)
[2022-08-19] MEDS: FOLIC ACID 1 MG TABLET (FP) PO SCH (09:31)
[2022-08-19] MEDS: LIDOCAINE 5% TOPICAL PATCH TP SCH (09:32)
[2022-08-19 10:37] LABS: BASO % 1.1 % (0-2.0); EOS % 4.9 % (0-4.5); HEMATOCRIT 23.8 % (35.4-49); LYMPH % 22.5 % (8-40); MCH 29.2 pg (25.7-33.7); MCHC 33.7 g/dl (32.0-35.9); MEAN CELL VOLUME 86.5 fl (80-96); MEAN PLT VOLUME 6.5 fl (7.5-11.1); MONO % 9.6 % (3.8-10.2); NEUT % 61.9 % (42.8-82.8); PLATELET COUNT 303 10^3/uL (134-434); RBC 2.75 M/mm3 (4.00-5.60); RDW 16.5 % (11.9-15.9); WHITE BLOOD COUNT 6.7 K/mm3 (4.0-10.0)
[2022-08-19 11:06] LABS: CALCIUM 8.7 mg/dL (8.5-10.1)
[2022-08-19 11:07] LABS: ALBUMIN 2.9 g/dl (3.4-5.0); BLOOD UREA NITROGEN 85.6 mg/dL (7-18); MAGNESIUM 1.8 mg/dL (1.8-2.4)
[2022-08-19 11:11] LABS: BILIRUBIN,TOTAL 0.4 mg/dL (0.2-1); CREATININE 3.6 mg/dL (0.55-1.3); TOT PROT 7.1 g/dl (6.4-8.2)
[2022-08-19] MEDS: ATORVASTATIN CA 20 MG TABLET (FP) PO SCH (23:23)
[2022-08-19] MEDS: LIDOCAINE PATCH REMOVAL MC SCH (23:44)
[2022-08-20] MEDS: hydrALAZINE HCL 50 MG TABLET (FP) PO SCH ×4 (06:51→23:06)
[2022-08-20] MEDS: LORazepam 1 MG TABLET PO SCH ×3 (07:10→23:07)
[2022-08-20] MEDS: FOLIC ACID 1 MG TABLET (FP) PO SCH (09:00)
[2022-08-20] MEDS: LIDOCAINE 5% TOPICAL PATCH TP SCH (09:01)
[2022-08-20] MEDS: TAMSULOSIN HCL 0.4 MG CAP PO SCH (09:01)
[2022-08-20] MEDS: OLANZapine 10 MG TABLET PO SCH ×2 (09:01→23:07)
[2022-08-20] MEDS: levETIRAcetam 500 MG TABLET (FP) PO SCH ×2 (09:01→23:06)
[2022-08-20] MEDS: amLODIPine BESYLATE 10 MG TABLET (FP) PO SCH (09:01)
[2022-08-20] MEDS: CARVEDILOL 25 MG TABLET (FP) PO SCH ×2 (09:01→23:07)
[2022-08-20] MEDS: FERROUS SO4 325 MG TABLET (FP) PO SCH ×3 (09:01→18:39)
[2022-08-20] MEDS: DOXYCYCLINE HYCLATE 100 MG CAPSULE PO SCH ×2 (09:01→18:38)
[2022-08-20 09:17] LABS: BASO % 0.9 % (0-2.0); EOS % 4.2 % (0-4.5); HEMOGLOBIN 7.9 GM/dL (11.7-16.9); LYMPH % 20.9 % (8-40); MCH 29.6 pg (25.7-33.7); MCHC 34.4 g/dl (32.0-35.9); MEAN CELL VOLUME 86.2 fl (80-96); MEAN PLT VOLUME 6.7 fl (7.5-11.1); MONO % 7.9 % (3.8-10.2); NEUT % 66.1 % (42.8-82.8); PLATELET COUNT 292 10^3/uL (134-434); RBC 2.67 M/mm3 (4.00-5.60); RDW 16.6 % (11.9-15.9); WHITE BLOOD COUNT 7.9 K/mm3 (4.0-10.0)
[2022-08-20 09:33] LABS: CALCIUM 8.7 mg/dL (8.5-10.1)
[2022-08-20 09:34] LABS: BLOOD UREA NITROGEN 97.8 mg/dL (7-18)
[2022-08-20 09:36] LABS: CREATININE 3.8 mg/dL (0.55-1.3); MAGNESIUM 1.8 mg/dL (1.8-2.4)
[2022-08-20 09:38] LABS: BILIRUBIN,TOTAL 0.2 mg/dL (0.2-1); TOT PROT 7.1 g/dl (6.4-8.2)
[2022-08-20] MEDS: MAGNESIUM OXIDE 400 MG TABLET (FP) PO SCH ×2 (14:37→23:05)
[2022-08-20] MEDS: ATORVASTATIN CA 20 MG TABLET (FP) PO SCH (23:07)
[2022-08-20] MEDS: LIDOCAINE PATCH REMOVAL MC SCH (23:11)
[2022-08-21] MEDS: LORazepam 1 MG TABLET PO SCH ×3 (06:30→22:20)
[2022-08-21] MEDS: hydrALAZINE HCL 50 MG TABLET (FP) PO SCH ×4 (06:31→23:25)
[2022-08-21] MEDS: levETIRAcetam 500 MG TABLET (FP) PO SCH ×2 (09:11→22:21)
[2022-08-21] MEDS: amLODIPine BESYLATE 10 MG TABLET (FP) PO SCH (09:11)
[2022-08-21] MEDS: TAMSULOSIN HCL 0.4 MG CAP PO SCH (09:11)
[2022-08-21] MEDS: CARVEDILOL 25 MG TABLET (FP) PO SCH ×2 (09:11→22:21)
[2022-08-21] MEDS: DOXYCYCLINE HYCLATE 100 MG CAPSULE PO SCH ×2 (09:11→17:48)
[2022-08-21] MEDS: OLANZapine 10 MG TABLET PO SCH ×2 (09:12→22:21)
[2022-08-21] MEDS: FOLIC ACID 1 MG TABLET (FP) PO SCH (09:12)
[2022-08-21] MEDS: FERROUS SO4 325 MG TABLET (FP) PO SCH ×3 (10:11→17:48)
[2022-08-21] MEDS: LIDOCAINE 5% TOPICAL PATCH TP SCH (10:11)
[2022-08-21 11:18] LABS: BASO % 1.3 % (0-2.0); EOS % 5.8 % (0-4.5); HEMOGLOBIN 7.5 GM/dL (11.7-16.9); LYMPH % 27.1 % (8-40); MCH 28.4 pg (25.7-33.7); MCHC 32.4 g/dl (32.0-35.9); MEAN CELL VOLUME 87.6 fl (80-96); MEAN PLT VOLUME 7.2 fl (7.5-11.1); MONO % 10.5 % (3.8-10.2); NEUT % 55.3 % (42.8-82.8); PLATELET COUNT 283 10^3/uL (134-434); RBC 2.63 M/mm3 (4.00-5.60); RDW 16.3 % (11.9-15.9); WHITE BLOOD COUNT 6.1 K/mm3 (4.0-10.0)
[2022-08-21 11:42] LABS: SODIUM 140 mmol/L (136-145)
[2022-08-21 12:05] LABS: ALBUMIN 2.8 g/dl (3.4-5.0); CALCIUM 8.6 mg/dL (8.5-10.1); CO2 20 mmol/L (21-32); GLUCOSE,RANDOM 161 mg/dL (74-106); MAGNESIUM 1.9 mg/dL (1.8-2.4)
[2022-08-21 12:08] LABS: CREATININE 4.2 mg/dL (0.55-1.3); SGOT/AST 17 U/L (15-37); SGPT/ALT 15 U/L (13-61)
[2022-08-21 12:10] LABS: BILIRUBIN,TOTAL 0.3 mg/dL (0.2-1); TOT PROT 6.8 g/dl (6.4-8.2)
[2022-08-21 12:11] LABS: ALK PHOS 75 U/L (45-117); ANION GAP 11 MMOL/L (8-16); BLOOD UREA NITROGEN 111.8 mg/dL (7-18); CHLORIDE 109 mmol/L (98-107)
[2022-08-21] MEDS: HALOPERIDOL LACTATE 5 MG/ML IM PRN (16:31)
[2022-08-21] MEDS: ATORVASTATIN CA 20 MG TABLET (FP) PO SCH (22:21)
[2022-08-21] MEDS: LIDOCAINE PATCH REMOVAL MC SCH (23:25)
[2022-08-22] MEDS: hydrALAZINE HCL 50 MG TABLET (FP) PO SCH ×4 (05:51→23:41)
[2022-08-22] MEDS: LORazepam 1 MG TABLET PO SCH ×3 (05:52→21:31)
[2022-08-22] MEDS: HALOPERIDOL LACTATE 5 MG/ML IM PRN ×2 (07:47→17:11)
[2022-08-22] MEDS: DOXYCYCLINE HYCLATE 100 MG CAPSULE PO SCH ×2 (09:51→17:41)
[2022-08-22] MEDS: FOLIC ACID 1 MG TABLET (FP) PO SCH (09:51)
[2022-08-22] MEDS: FERROUS SO4 325 MG TABLET (FP) PO SCH ×3 (09:51→17:42)
[2022-08-22] MEDS: OLANZapine 10 MG TABLET PO SCH ×2 (09:51→21:35)
[2022-08-22] MEDS: LIDOCAINE 5% TOPICAL PATCH TP SCH (09:51)
[2022-08-22] MEDS: amLODIPine BESYLATE 10 MG TABLET (FP) PO SCH (09:51)
[2022-08-22] MEDS: TAMSULOSIN HCL 0.4 MG CAP PO SCH (09:51)
[2022-08-22] MEDS: levETIRAcetam 500 MG TABLET (FP) PO SCH ×2 (09:51→21:34)
[2022-08-22] MEDS: CARVEDILOL 25 MG TABLET (FP) PO SCH ×2 (09:51→21:34)
[2022-08-22] MEDS: ATORVASTATIN CA 20 MG TABLET (FP) PO SCH (21:35)
[2022-08-22] MEDS: LIDOCAINE PATCH REMOVAL MC SCH (21:36)
[2022-08-23] MEDS: HALOPERIDOL LACTATE 5 MG/ML IM PRN (00:14)
[2022-08-23] MEDS: ACETAMINOPHEN 500 MG TABLET (FP) PO PRN (00:15)
[2022-08-23] MEDS: LORazepam 1 MG TABLET PO SCH ×3 (05:32→22:36)
[2022-08-23] MEDS: hydrALAZINE HCL 50 MG TABLET (FP) PO SCH ×4 (05:32→22:43)
[2022-08-23] MEDS: DOXYCYCLINE HYCLATE 100 MG CAPSULE PO SCH ×2 (09:37→18:21)
[2022-08-23] MEDS: LIDOCAINE 5% TOPICAL PATCH TP SCH (09:37)
[2022-08-23] MEDS: CARVEDILOL 25 MG TABLET (FP) PO SCH ×2 (09:38→22:36)
[2022-08-23] MEDS: amLODIPine BESYLATE 10 MG TABLET (FP) PO SCH (09:38)
[2022-08-23] MEDS: OLANZapine 10 MG TABLET PO SCH ×2 (09:38→22:36)
[2022-08-23] MEDS: levETIRAcetam 500 MG TABLET (FP) PO SCH ×2 (09:38→22:36)
[2022-08-23] MEDS: TAMSULOSIN HCL 0.4 MG CAP PO SCH (09:38)
[2022-08-23] MEDS: FERROUS SO4 325 MG TABLET (FP) PO SCH ×3 (09:38→18:21)
[2022-08-23] MEDS: FOLIC ACID 1 MG TABLET (FP) PO SCH (09:38)
[2022-08-23 10:10] LABS: EOS % 4.2 % (0-4.5); HEMATOCRIT 25.7 % (35.4-49); HEMOGLOBIN 8.5 GM/dL (11.7-16.9); LYMPH % 20.6 % (8-40); MCH 28.7 pg (25.7-33.7); MEAN PLT VOLUME 7.2 fl (7.5-11.1); MONO % 9.4 % (3.8-10.2); NEUT % 64.8 % (42.8-82.8); PLATELET COUNT 337 10^3/uL (134-434); RBC 2.95 M/mm3 (4.00-5.60); WHITE BLOOD COUNT 6.7 K/mm3 (4.0-10.0)
[2022-08-23 10:18] LABS: CHLORIDE 110 mmol/L (98-107); SODIUM 140 mmol/L (136-145)
[2022-08-23 10:31] LABS: ALBUMIN 3.3 g/dl (3.4-5.0); GLUCOSE,RANDOM 116 mg/dL (74-106)
[2022-08-23 10:32] LABS: ANION GAP 9 MMOL/L (8-16); CALCIUM 9.1 mg/dL (8.5-10.1); CO2 21 mmol/L (21-32)
[2022-08-23 10:34] LABS: CREATININE 3.6 mg/dL (0.55-1.3); SGOT/AST 33 U/L (15-37)
[2022-08-23 10:35] LABS: SGPT/ALT 17 U/L (13-61)
[2022-08-23 10:36] LABS: BILIRUBIN,TOTAL 0.2 mg/dL (0.2-1); TOT PROT 7.8 g/dl (6.4-8.2)
[2022-08-23 10:37] LABS: ALK PHOS 92 U/L (45-117)
[2022-08-23 10:43] LABS: BLOOD UREA NITROGEN 108.6 mg/dL (7-18)
[2022-08-23] MEDS: ATORVASTATIN CA 20 MG TABLET (FP) PO SCH (22:36)
[2022-08-23] MEDS: LIDOCAINE PATCH REMOVAL MC SCH (22:36)
[2022-08-24] MEDS ORDERED: SENNOSIDES 8.6MG TABLET (FP) PO PRN (00:57)
[2022-08-24] MEDS: hydrALAZINE HCL 50 MG TABLET (FP) PO SCH ×3 (06:32→17:40)
[2022-08-24] MEDS: LORazepam 1 MG TABLET PO SCH ×3 (06:32→21:06)
[2022-08-24 09:21] LABS: CHLORIDE 113 mmol/L (98-107); SODIUM 142 mmol/L (136-145)
[2022-08-24 09:25] LABS: ALBUMIN 3.2 g/dl (3.4-5.0); ANION GAP 10 MMOL/L (8-16); CALCIUM 9.3 mg/dL (8.5-10.1); CO2 19 mmol/L (21-32); GLUCOSE,RANDOM 97 mg/dL (74-106); MAGNESIUM 1.9 mg/dL (1.8-2.4)
[2022-08-24 09:29] LABS: SGOT/AST 36 U/L (15-37); SGPT/ALT 16 U/L (13-61)
[2022-08-24 09:30] LABS: BILIRUBIN,TOTAL 0.3 mg/dL (0.2-1); TOT PROT 7.4 g/dl (6.4-8.2)
[2022-08-24 09:32] LABS: ALK PHOS 87 U/L (45-117)
[2022-08-24 09:33] LABS: BASO % 1.1 % (0-2.0); EOS % 4.8 % (0-4.5); HEMOGLOBIN 8.1 GM/dL (11.7-16.9); LYMPH % 26.5 % (8-40); MCH 28.4 pg (25.7-33.7); MCHC 32.6 g/dl (32.0-35.9); MEAN CELL VOLUME 87.3 fl (80-96); MEAN PLT VOLUME 7.4 fl (7.5-11.1); MONO % 11.3 % (3.8-10.2); NEUT % 56.3 % (42.8-82.8); PLATELET COUNT 324 10^3/uL (134-434); RBC 2.87 M/mm3 (4.00-5.60)
[2022-08-24 09:37] LABS: BLOOD UREA NITROGEN 115.7 mg/dL (7-18)
[2022-08-24] MEDS: CARVEDILOL 25 MG TABLET (FP) PO SCH ×2 (10:25→21:07)
[2022-08-24] MEDS: FERROUS SO4 325 MG TABLET (FP) PO SCH ×3 (10:25→17:39)
[2022-08-24] MEDS: levETIRAcetam 500 MG TABLET (FP) PO SCH ×2 (10:25→21:08)
[2022-08-24] MEDS: DOXYCYCLINE HYCLATE 100 MG CAPSULE PO SCH ×2 (10:25→17:41)
[2022-08-24] MEDS: FOLIC ACID 1 MG TABLET (FP) PO SCH (10:26)
[2022-08-24] MEDS: TAMSULOSIN HCL 0.4 MG CAP PO SCH (10:26)
[2022-08-24] MEDS: LIDOCAINE 5% TOPICAL PATCH TP SCH (10:27)
[2022-08-24] MEDS: OLANZapine 10 MG TABLET PO SCH ×2 (10:27→21:09)
[2022-08-24] MEDS: amLODIPine BESYLATE 10 MG TABLET (FP) PO SCH (10:28)
[2022-08-24] MEDS: ATORVASTATIN CA 20 MG TABLET (FP) PO SCH (21:09)
[2022-08-24] MEDS: LIDOCAINE PATCH REMOVAL MC SCH (21:10)
[2022-08-25] MEDS: hydrALAZINE HCL 50 MG TABLET (FP) PO SCH ×5 (00:07→23:02)
[2022-08-25] MEDS: LORazepam 1 MG TABLET PO SCH ×3 (06:01→21:55)
[2022-08-25] MEDS: FERROUS SO4 325 MG TABLET (FP) PO SCH ×3 (09:22→17:58)
[2022-08-25] MEDS: levETIRAcetam 500 MG TABLET (FP) PO SCH ×2 (09:22→21:56)
[2022-08-25] MEDS: LIDOCAINE 5% TOPICAL PATCH TP SCH (09:22)
[2022-08-25] MEDS: amLODIPine BESYLATE 10 MG TABLET (FP) PO SCH (09:22)
[2022-08-25] MEDS: CARVEDILOL 25 MG TABLET (FP) PO SCH ×2 (09:22→21:56)
[2022-08-25] MEDS: DOXYCYCLINE HYCLATE 100 MG CAPSULE PO SCH ×2 (09:22→17:59)
[2022-08-25] MEDS: TAMSULOSIN HCL 0.4 MG CAP PO SCH (09:22)
[2022-08-25] MEDS: FOLIC ACID 1 MG TABLET (FP) PO SCH (09:22)
[2022-08-25] MEDS: OLANZapine 10 MG TABLET PO SCH ×2 (09:23→21:56)
[2022-08-25 09:54] LABS: BASO % 1.1 % (0-2.0); EOS % 5.2 % (0-4.5); HEMATOCRIT 24.4 % (35.4-49); HEMOGLOBIN 8.1 GM/dL (11.7-16.9); MEAN CELL VOLUME 87.7 fl (80-96); MEAN PLT VOLUME 6.9 fl (7.5-11.1); MONO % 8.6 % (3.8-10.2); NEUT % 58.1 % (42.8-82.8); PLATELET COUNT 299 10^3/uL (134-434); RBC 2.78 M/mm3 (4.00-5.60); RDW 16.6 % (11.9-15.9); WHITE BLOOD COUNT 6.6 K/mm3 (4.0-10.0)
[2022-08-25 10:20] LABS: CHLORIDE 113 mmol/L (98-107); SODIUM 142 mmol/L (136-145)
[2022-08-25 10:27] LABS: ALBUMIN 3.1 g/dl (3.4-5.0); ANION GAP 12 MMOL/L (8-16); CO2 17 mmol/L (21-32); CREATININE 4.3 mg/dL (0.55-1.3); GLUCOSE,RANDOM 182 mg/dL (74-106); SGOT/AST 37 U/L (15-37)
[2022-08-25 10:29] LABS: ALK PHOS 85 U/L (45-117); BILIRUBIN,TOTAL 0.2 mg/dL (0.2-1); TOT PROT 7.4 g/dl (6.4-8.2)
[2022-08-25 10:31] LABS: CALCIUM 9.1 mg/dL (8.5-10.1)
[2022-08-25 10:33] LABS: BLOOD UREA NITROGEN 121.8 mg/dL (7-18); SGPT/ALT 19 U/L (13-61)
[2022-08-25] MEDS: ATORVASTATIN CA 20 MG TABLET (FP) PO SCH (21:56)
[2022-08-25] MEDS: LIDOCAINE PATCH REMOVAL MC SCH (21:56)
[2022-08-26] MEDS: hydrALAZINE HCL 50 MG TABLET (FP) PO SCH ×4 (05:20→23:08)
[2022-08-26] MEDS: LORazepam 1 MG TABLET PO SCH ×3 (05:20→23:07)
[2022-08-26] MEDS: TAMSULOSIN HCL 0.4 MG CAP PO SCH (08:45)
[2022-08-26] MEDS: FERROUS SO4 325 MG TABLET (FP) PO SCH ×3 (08:45→17:30)
[2022-08-26] MEDS: FOLIC ACID 1 MG TABLET (FP) PO SCH (10:11)
[2022-08-26] MEDS: amLODIPine BESYLATE 10 MG TABLET (FP) PO SCH (10:11)
[2022-08-26] MEDS: LIDOCAINE 5% TOPICAL PATCH TP SCH (10:11)
[2022-08-26] MEDS: levETIRAcetam 500 MG TABLET (FP) PO SCH ×2 (10:11→23:09)
[2022-08-26] MEDS: DOXYCYCLINE HYCLATE 100 MG CAPSULE PO SCH ×2 (10:11→17:30)
[2022-08-26] MEDS: CARVEDILOL 25 MG TABLET (FP) PO SCH ×2 (10:11→23:08)
[2022-08-26] MEDS: OLANZapine 10 MG TABLET PO SCH ×2 (10:11→23:08)
[2022-08-26] MEDS: ATORVASTATIN CA 20 MG TABLET (FP) PO SCH (23:09)
[2022-08-26] MEDS: LIDOCAINE PATCH REMOVAL MC SCH (23:09)
[2022-08-27] MEDS: hydrALAZINE HCL 50 MG TABLET (FP) PO SCH ×4 (05:04→22:43)
[2022-08-27] MEDS: LORazepam 1 MG TABLET PO SCH ×3 (05:05→21:34)
[2022-08-27] MEDS: TAMSULOSIN HCL 0.4 MG CAP PO SCH (08:43)
[2022-08-27] MEDS: FERROUS SO4 325 MG TABLET (FP) PO SCH ×3 (08:43→16:58)
[2022-08-27] MEDS: MULTIVITAMINS (DAILY MVI) TABLET (FP) PO SCH (10:17)
[2022-08-27] MEDS: amLODIPine BESYLATE 10 MG TABLET (FP) PO SCH (10:17)
[2022-08-27] MEDS: DOXYCYCLINE HYCLATE 100 MG CAPSULE PO SCH ×2 (10:17→19:35)
[2022-08-27] MEDS: FOLIC ACID 1 MG TABLET (FP) PO SCH (10:17)
[2022-08-27] MEDS: levETIRAcetam 500 MG TABLET (FP) PO SCH ×2 (10:17→21:36)
[2022-08-27] MEDS: CARVEDILOL 25 MG TABLET (FP) PO SCH ×2 (10:17→21:36)
[2022-08-27] MEDS: OLANZapine 10 MG TABLET PO SCH ×2 (10:18→21:37)
[2022-08-27] MEDS: LIDOCAINE 5% TOPICAL PATCH TP SCH (10:18)
[2022-08-27] MEDS: HALOPERIDOL LACTATE 5 MG/ML IM PRN (10:19)
[2022-08-27] MEDS: LIDOCAINE PATCH REMOVAL MC SCH (21:37)
[2022-08-27] MEDS: ATORVASTATIN CA 20 MG TABLET (FP) PO SCH (21:37)
[2022-08-28] MEDS: hydrALAZINE HCL 50 MG TABLET (FP) PO SCH ×4 (05:47→23:59)
[2022-08-28] MEDS: LORazepam 1 MG TABLET PO SCH ×2 (05:48→15:45)
[2022-08-28 09:11] LABS: BASO % 0.7 % (0-2.0); EOS % 4.1 % (0-4.5); HEMATOCRIT 25.1 % (35.4-49); HEMOGLOBIN 8.2 GM/dL (11.7-16.9); LYMPH % 20.4 % (8-40); MCH 28.4 pg (25.7-33.7); MCHC 32.8 g/dl (32.0-35.9); MEAN CELL VOLUME 86.5 fl (80-96); MEAN PLT VOLUME 7.4 fl (7.5-11.1); NEUT % 66.8 % (42.8-82.8); PLATELET COUNT 323 10^3/uL (134-434); RDW 16.6 % (11.9-15.9); WHITE BLOOD COUNT 7.5 K/mm3 (4.0-10.0)
[2022-08-28 09:28] LABS: CHLORIDE 114 mmol/L (98-107); SODIUM 143 mmol/L (136-145)
[2022-08-28 09:34] LABS: CALCIUM 9.3 mg/dL (8.5-10.1)
[2022-08-28 09:35] LABS: ALBUMIN 3.4 g/dl (3.4-5.0); ANION GAP 11 MMOL/L (8-16); CO2 17 mmol/L (21-32); GLUCOSE,RANDOM 118 mg/dL (74-106); SGOT/AST 33 U/L (15-37)
[2022-08-28 09:36] LABS: SGPT/ALT 20 U/L (13-61)
[2022-08-28 09:37] LABS: CREATININE 4.1 mg/dL (0.55-1.3)
[2022-08-28 09:38] LABS: BILIRUBIN,TOTAL 0.2 mg/dL (0.2-1); TOT PROT 7.9 g/dl (6.4-8.2)
[2022-08-28 09:39] LABS: ALK PHOS 86 U/L (45-117)
[2022-08-28 10:32] LABS: BLOOD UREA NITROGEN 125.8 mg/dL (7-18)
[2022-08-28] MEDS: amLODIPine BESYLATE 10 MG TABLET (FP) PO SCH (11:19)
[2022-08-28] MEDS: FOLIC ACID 1 MG TABLET (FP) PO SCH (11:19)
[2022-08-28] MEDS: MULTIVITAMINS (DAILY MVI) TABLET (FP) PO SCH (11:19)
[2022-08-28] MEDS: FERROUS SO4 325 MG TABLET (FP) PO SCH ×3 (11:22→17:38)
[2022-08-28] MEDS: TAMSULOSIN HCL 0.4 MG CAP PO SCH (11:23)
[2022-08-28] MEDS: CARVEDILOL 25 MG TABLET (FP) PO SCH ×2 (11:24→23:59)
[2022-08-28] MEDS: levETIRAcetam 500 MG TABLET (FP) PO SCH ×2 (11:24→23:59)
[2022-08-28] MEDS: LIDOCAINE 5% TOPICAL PATCH TP SCH (11:24)
[2022-08-28] MEDS: DOXYCYCLINE HYCLATE 100 MG CAPSULE PO SCH ×2 (11:25→17:41)
[2022-08-28] MEDS: OLANZapine 10 MG TABLET PO SCH (11:26)
[2022-08-28] MEDS: DOCUSATE SODIUM 100 MG CAPSULE (FP) PO SCH ×2 (15:43→23:59)
[2022-08-28] MEDS: POLYETHYLENE GLYCOL (HEALTHYLAX) 3350 17 GM PACKET PO SCH (15:43)
[2022-08-28] MEDS: LORazepam 1 MG TABLET PO PRN (15:43)
[2022-08-28] MEDS: ACETAMINOPHEN 500 MG TABLET (FP) PO PRN (17:38)
[2022-08-28] MEDS: ATORVASTATIN CA 20 MG TABLET (FP) PO SCH (23:59)
[2022-08-29] MEDS: LIDOCAINE PATCH REMOVAL MC SCH ×2 (00:05→21:59)
[2022-08-29] MEDS: hydrALAZINE HCL 50 MG TABLET (FP) PO SCH ×4 (06:56→23:43)
[2022-08-29] MEDS: DOCUSATE SODIUM 100 MG CAPSULE (FP) PO SCH ×3 (06:56→21:54)
[2022-08-29] MEDS: HALOPERIDOL LACTATE 5 MG/ML IM PRN (08:50)
[2022-08-29] MEDS: LORazepam 1 MG TABLET PO PRN (08:53)
[2022-08-29] MEDS: TAMSULOSIN HCL 0.4 MG CAP PO SCH (08:54)
[2022-08-29] MEDS: LIDOCAINE 5% TOPICAL PATCH TP SCH (09:03)
[2022-08-29] MEDS: FOLIC ACID 1 MG TABLET (FP) PO SCH (09:03)
[2022-08-29] MEDS: CARVEDILOL 25 MG TABLET (FP) PO SCH ×2 (09:04→21:53)
[2022-08-29] MEDS: levETIRAcetam 500 MG TABLET (FP) PO SCH ×2 (09:04→21:53)
[2022-08-29] MEDS: POLYETHYLENE GLYCOL (HEALTHYLAX) 3350 17 GM PACKET PO SCH (09:06)
[2022-08-29] MEDS: amLODIPine BESYLATE 10 MG TABLET (FP) PO SCH (09:06)
[2022-08-29] MEDS: FERROUS SO4 325 MG TABLET (FP) PO SCH ×3 (09:06→17:43)
[2022-08-29] MEDS: MULTIVITAMINS (DAILY MVI) TABLET (FP) PO SCH (09:07)
[2022-08-29] MEDS: OLANZapine 10 MG TABLET PO SCH ×3 (09:07→21:54)
[2022-08-29] MEDS: DOXYCYCLINE HYCLATE 100 MG CAPSULE PO SCH ×2 (09:07→17:43)
[2022-08-29] MEDS ORDERED: LORazepam 1 MG TABLET PO PRN (09:46)
[2022-08-29] MEDS: LORazepam 1 MG TABLET PO SCH ×3 (13:00→23:42)
[2022-08-29] MEDS: ATORVASTATIN CA 20 MG TABLET (FP) PO SCH (21:54)
[2022-08-30] MEDS: DOCUSATE SODIUM 100 MG CAPSULE (FP) PO SCH ×3 (06:46→21:48)
[2022-08-30] MEDS: LORazepam 1 MG TABLET PO SCH ×3 (06:47→18:32)
[2022-08-30] MEDS: hydrALAZINE HCL 50 MG TABLET (FP) PO SCH ×4 (06:47→23:00)
[2022-08-30] MEDS: OLANZapine 10 MG TABLET PO SCH (10:10)
[2022-08-30] MEDS: CARVEDILOL 25 MG TABLET (FP) PO SCH ×2 (10:10→21:49)
[2022-08-30] MEDS: FOLIC ACID 1 MG TABLET (FP) PO SCH (10:10)
[2022-08-30] MEDS: POLYETHYLENE GLYCOL (HEALTHYLAX) 3350 17 GM PACKET PO SCH (10:11)
[2022-08-30] MEDS: FERROUS SO4 325 MG TABLET (FP) PO SCH ×3 (10:11→18:32)
[2022-08-30] MEDS: TAMSULOSIN HCL 0.4 MG CAP PO SCH (10:11)
[2022-08-30] MEDS: amLODIPine BESYLATE 10 MG TABLET (FP) PO SCH (10:11)
[2022-08-30] MEDS: levETIRAcetam 500 MG TABLET (FP) PO SCH ×2 (10:11→21:49)
[2022-08-30] MEDS: LIDOCAINE 5% TOPICAL PATCH TP SCH (10:12)
[2022-08-30] MEDS: MULTIVITAMINS (DAILY MVI) TABLET (FP) PO SCH (10:12)
[2022-08-30] MEDS: HALOPERIDOL LACTATE 5 MG/ML IM PRN ×2 (10:12→21:49)
[2022-08-30] MEDS: DOXYCYCLINE HYCLATE 100 MG CAPSULE PO SCH ×2 (10:12→18:32)
[2022-08-30] MEDS: ACETAMINOPHEN 500 MG TABLET (FP) PO PRN (10:12)
[2022-08-30] MEDS: OLANZapine 5 MG TABLET PO SCH (21:48)
[2022-08-30] MEDS: ATORVASTATIN CA 20 MG TABLET (FP) PO SCH (21:49)
[2022-08-30] MEDS: LIDOCAINE PATCH REMOVAL MC SCH (21:50)
[2022-08-31] MEDS: LORazepam 1 MG TABLET PO SCH ×4 (01:00→18:26)
[2022-08-31] MEDS: DOCUSATE SODIUM 100 MG CAPSULE (FP) PO SCH ×3 (05:49→21:01)
[2022-08-31] MEDS: hydrALAZINE HCL 50 MG TABLET (FP) PO SCH ×4 (05:49→22:50)
[2022-08-31] MEDS: FERROUS SO4 325 MG TABLET (FP) PO SCH ×3 (08:10→18:27)
[2022-08-31] MEDS: TAMSULOSIN HCL 0.4 MG CAP PO SCH (08:10)
[2022-08-31] MEDS: levETIRAcetam 500 MG TABLET (FP) PO SCH ×2 (09:23→21:01)
[2022-08-31] MEDS: HALOPERIDOL LACTATE 5 MG/ML IM PRN ×3 (09:23→21:02)
[2022-08-31] MEDS: ACETAMINOPHEN 500 MG TABLET (FP) PO PRN (09:24)
[2022-08-31] MEDS: OLANZapine 5 MG TABLET PO SCH ×2 (09:25→21:01)
[2022-08-31] MEDS: FOLIC ACID 1 MG TABLET (FP) PO SCH (09:25)
[2022-08-31] MEDS: CARVEDILOL 25 MG TABLET (FP) PO SCH ×2 (09:25→21:02)
[2022-08-31] MEDS: MULTIVITAMINS (DAILY MVI) TABLET (FP) PO SCH (09:32)
[2022-08-31] MEDS: DOXYCYCLINE HYCLATE 100 MG CAPSULE PO SCH ×2 (09:32→18:27)
[2022-08-31] MEDS: LIDOCAINE 5% TOPICAL PATCH TP SCH (09:33)
[2022-08-31] MEDS: amLODIPine BESYLATE 10 MG TABLET (FP) PO SCH (09:33)
[2022-08-31] MEDS: POLYETHYLENE GLYCOL (HEALTHYLAX) 3350 17 GM PACKET PO SCH (09:33)
[2022-08-31 09:51] LABS: BASO % 0.9 % (0-2.0); EOS % 5.6 % (0-4.5); HEMATOCRIT 25.1 % (35.4-49); HEMOGLOBIN 8.1 GM/dL (11.7-16.9); LYMPH % 22.1 % (8-40); MCH 28.2 pg (25.7-33.7); MCHC 32.2 g/dl (32.0-35.9); MEAN CELL VOLUME 87.7 fl (80-96); MEAN PLT VOLUME 7.6 fl (7.5-11.1); MONO % 7.7 % (3.8-10.2); NEUT % 63.7 % (42.8-82.8); PLATELET COUNT 313 10^3/uL (134-434); RBC 2.86 M/mm3 (4.00-5.60); RDW 16.4 % (11.9-15.9); WHITE BLOOD COUNT 7.5 K/mm3 (4.0-10.0)
[2022-08-31 10:03] LABS: CHLORIDE 118 mmol/L (98-107); SODIUM 146 mmol/L (136-145)
[2022-08-31 10:06] LABS: CALCIUM 9.4 mg/dL (8.5-10.1)
[2022-08-31 10:07] LABS: ALBUMIN 3.3 g/dl (3.4-5.0); ANION GAP 10 MMOL/L (8-16); CO2 18 mmol/L (21-32); GLUCOSE,RANDOM 101 mg/dL (74-106); MAGNESIUM 2.1 mg/dL (1.8-2.4)
[2022-08-31 10:10] LABS: CREATININE 3.9 mg/dL (0.55-1.3); SGOT/AST 34 U/L (15-37)
[2022-08-31 10:11] LABS: TOT PROT 7.7 g/dl (6.4-8.2)
[2022-08-31 10:13] LABS: ALK PHOS 88 U/L (45-117)
[2022-08-31 10:14] LABS: BILIRUBIN,TOTAL 0.2 mg/dL (0.2-1)
[2022-08-31 10:15] LABS: BLOOD UREA NITROGEN 125.7 mg/dL (7-18); SGPT/ALT 20 U/L (13-61)
[2022-08-31] MEDS: SODIUM ZIRCONIUM CYCLOSILICATE (LOKELMA) 5 GM PACKET PO SCH (16:43)
[2022-08-31] MEDS: ATORVASTATIN CA 20 MG TABLET (FP) PO SCH (21:01)
[2022-08-31] MEDS: SODIUM BICARBONATE 650 MG TABLET PO SCH (21:01)
[2022-08-31] MEDS: LIDOCAINE PATCH REMOVAL MC SCH (21:01)
[2022-09-01] MEDS: LORazepam 1 MG TABLET PO SCH ×4 (01:30→18:36)
[2022-09-01] MEDS: DOCUSATE SODIUM 100 MG CAPSULE (FP) PO SCH ×3 (05:22→21:35)
[2022-09-01] MEDS: hydrALAZINE HCL 50 MG TABLET (FP) PO SCH ×3 (05:22→18:37)
[2022-09-01] MEDS: OLANZapine 5 MG TABLET PO SCH ×2 (09:33→21:36)
[2022-09-01] MEDS: FERROUS SO4 325 MG TABLET (FP) PO SCH ×3 (09:34→18:37)
[2022-09-01] MEDS: levETIRAcetam 500 MG TABLET (FP) PO SCH ×2 (09:34→21:35)
[2022-09-01] MEDS: CARVEDILOL 25 MG TABLET (FP) PO SCH ×2 (09:35→21:35)
[2022-09-01] MEDS: SODIUM BICARBONATE 650 MG TABLET PO SCH ×2 (09:35→21:35)
[2022-09-01] MEDS: amLODIPine BESYLATE 10 MG TABLET (FP) PO SCH (09:35)
[2022-09-01] MEDS: MULTIVITAMINS (DAILY MVI) TABLET (FP) PO SCH (09:36)
[2022-09-01] MEDS: LIDOCAINE 5% TOPICAL PATCH TP SCH (09:36)
[2022-09-01] MEDS: FOLIC ACID 1 MG TABLET (FP) PO SCH (09:36)
[2022-09-01] MEDS: SODIUM ZIRCONIUM CYCLOSILICATE (LOKELMA) 5 GM PACKET PO SCH (09:36)
[2022-09-01] MEDS: POLYETHYLENE GLYCOL (HEALTHYLAX) 3350 17 GM PACKET PO SCH (09:36)
[2022-09-01] MEDS: TAMSULOSIN HCL 0.4 MG CAP PO SCH (09:36)
[2022-09-01] MEDS: DOXYCYCLINE HYCLATE 100 MG CAPSULE PO SCH ×2 (09:58→18:38)
[2022-09-01 10:14] LABS: CHLORIDE 118 mmol/L (98-107); SODIUM 146 mmol/L (136-145)
[2022-09-01 10:33] LABS: CALCIUM 9.3 mg/dL (8.5-10.1)
[2022-09-01 10:35] LABS: ANION GAP 11 MMOL/L (8-16); CO2 17 mmol/L (21-32); GLUCOSE,RANDOM 91 mg/dL (74-106)
[2022-09-01 10:36] LABS: CREATININE 4.1 mg/dL (0.55-1.3)
[2022-09-01 10:40] LABS: BLOOD UREA NITROGEN 129.7 mg/dL (7-18)
[2022-09-01] MEDS: ATORVASTATIN CA 20 MG TABLET (FP) PO SCH (21:35)
[2022-09-01] MEDS: LIDOCAINE PATCH REMOVAL MC SCH (21:36)
[2022-09-01] MEDS: HALOPERIDOL LACTATE 5 MG/ML IM PRN (21:36)
[2022-09-02] MEDS: hydrALAZINE HCL 50 MG TABLET (FP) PO SCH ×4 (01:01→18:59)
[2022-09-02] MEDS: LORazepam 1 MG TABLET PO SCH ×4 (01:02→18:59)
[2022-09-02] MEDS: DOCUSATE SODIUM 100 MG CAPSULE (FP) PO SCH ×3 (06:14→21:52)
[2022-09-02] MEDS: POLYETHYLENE GLYCOL (HEALTHYLAX) 3350 17 GM PACKET PO SCH (09:41)
[2022-09-02] MEDS: CARVEDILOL 25 MG TABLET (FP) PO SCH ×2 (09:42→21:52)
[2022-09-02] MEDS: levETIRAcetam 500 MG TABLET (FP) PO SCH ×2 (09:42→21:52)
[2022-09-02] MEDS: LIDOCAINE 5% TOPICAL PATCH TP SCH (09:42)
[2022-09-02] MEDS: MULTIVITAMINS (DAILY MVI) TABLET (FP) PO SCH (09:42)
[2022-09-02] MEDS: OLANZapine 5 MG TABLET PO SCH ×2 (09:42→21:53)
[2022-09-02] MEDS: SODIUM ZIRCONIUM CYCLOSILICATE (LOKELMA) 5 GM PACKET PO SCH (09:42)
[2022-09-02] MEDS: SODIUM BICARBONATE 650 MG TABLET PO SCH ×2 (09:43→21:53)
[2022-09-02] MEDS: amLODIPine BESYLATE 10 MG TABLET (FP) PO SCH (09:43)
[2022-09-02] MEDS: FOLIC ACID 1 MG TABLET (FP) PO SCH (09:43)
[2022-09-02] MEDS: FERROUS SO4 325 MG TABLET (FP) PO SCH ×3 (09:43→18:47)
[2022-09-02] MEDS: TAMSULOSIN HCL 0.4 MG CAP PO SCH (09:43)
[2022-09-02] MEDS: DOXYCYCLINE HYCLATE 100 MG CAPSULE PO SCH ×2 (09:44→18:59)
[2022-09-02] MEDS: HALOPERIDOL LACTATE 5 MG/ML IM PRN ×2 (14:24→21:54)
[2022-09-02] MEDS: ATORVASTATIN CA 20 MG TABLET (FP) PO SCH (21:53)
[2022-09-02] MEDS: LIDOCAINE PATCH REMOVAL MC SCH (21:53)
[2022-09-03] MEDS: hydrALAZINE HCL 50 MG TABLET (FP) PO SCH ×4 (01:06→17:36)
[2022-09-03] MEDS: LORazepam 1 MG TABLET PO SCH ×4 (01:06→17:36)
[2022-09-03] MEDS: DOCUSATE SODIUM 100 MG CAPSULE (FP) PO SCH ×3 (06:44→22:00)
[2022-09-03] MEDS: HALOPERIDOL LACTATE 5 MG/ML IM PRN ×3 (06:45→22:01)
[2022-09-03 10:01] LABS: CHLORIDE 117 mmol/L (98-107); SODIUM 144 mmol/L (136-145)
[2022-09-03 10:04] LABS: ANION GAP 7 MMOL/L (8-16); CO2 19 mmol/L (21-32); GLUCOSE,RANDOM 141 mg/dL (74-106)
[2022-09-03 10:08] LABS: CREATININE 4.2 mg/dL (0.55-1.3)
[2022-09-03 10:15] LABS: BLOOD UREA NITROGEN 117.6 mg/dL (7-18)
[2022-09-03] MEDS: SODIUM ZIRCONIUM CYCLOSILICATE (LOKELMA) 5 GM PACKET PO SCH (10:21)
[2022-09-03] MEDS: POLYETHYLENE GLYCOL (HEALTHYLAX) 3350 17 GM PACKET PO SCH (10:21)
[2022-09-03] MEDS: LIDOCAINE 5% TOPICAL PATCH TP SCH (10:22)
[2022-09-03] MEDS: CARVEDILOL 25 MG TABLET (FP) PO SCH ×2 (10:24→22:00)
[2022-09-03] MEDS: amLODIPine BESYLATE 10 MG TABLET (FP) PO SCH (10:24)
[2022-09-03] MEDS: OLANZapine 5 MG TABLET PO SCH ×2 (10:24→22:00)
[2022-09-03] MEDS: levETIRAcetam 500 MG TABLET (FP) PO SCH ×2 (10:24→22:00)
[2022-09-03] MEDS: SODIUM BICARBONATE 650 MG TABLET PO SCH ×2 (10:24→22:00)
[2022-09-03] MEDS: TAMSULOSIN HCL 0.4 MG CAP PO SCH (10:24)
[2022-09-03] MEDS: MULTIVITAMINS (DAILY MVI) TABLET (FP) PO SCH (10:25)
[2022-09-03] MEDS: FERROUS SO4 325 MG TABLET (FP) PO SCH ×3 (10:25→17:36)
[2022-09-03] MEDS: FOLIC ACID 1 MG TABLET (FP) PO SCH (10:25)
[2022-09-03] MEDS: DOXYCYCLINE HYCLATE 100 MG CAPSULE PO SCH ×2 (10:26→17:36)
[2022-09-03] MEDS: ATORVASTATIN CA 20 MG TABLET (FP) PO SCH (22:00)
[2022-09-03] MEDS: LIDOCAINE PATCH REMOVAL MC SCH (22:02)
[2022-09-04] MEDS: hydrALAZINE HCL 50 MG TABLET (FP) PO SCH ×4 (00:55→18:11)
[2022-09-04] MEDS: LORazepam 1 MG TABLET PO SCH ×4 (00:55→18:11)
[2022-09-04] MEDS: DOCUSATE SODIUM 100 MG CAPSULE (FP) PO SCH ×3 (06:15→21:44)
[2022-09-04] MEDS: TAMSULOSIN HCL 0.4 MG CAP PO SCH (08:39)
[2022-09-04] MEDS: FERROUS SO4 325 MG TABLET (FP) PO SCH ×3 (08:39→18:11)
[2022-09-04] MEDS: FOLIC ACID 1 MG TABLET (FP) PO SCH (09:05)
[2022-09-04] MEDS: CARVEDILOL 25 MG TABLET (FP) PO SCH ×2 (09:05→21:44)
[2022-09-04] MEDS: OLANZapine 5 MG TABLET PO SCH ×2 (09:05→21:43)
[2022-09-04] MEDS: MULTIVITAMINS (DAILY MVI) TABLET (FP) PO SCH (09:05)
[2022-09-04] MEDS: levETIRAcetam 500 MG TABLET (FP) PO SCH ×2 (09:05→21:44)
[2022-09-04] MEDS: SODIUM BICARBONATE 650 MG TABLET PO SCH ×2 (09:05→21:44)
[2022-09-04] MEDS: amLODIPine BESYLATE 10 MG TABLET (FP) PO SCH (09:05)
[2022-09-04] MEDS: DOXYCYCLINE HYCLATE 100 MG CAPSULE PO SCH ×2 (09:06→18:13)
[2022-09-04] MEDS: SODIUM ZIRCONIUM CYCLOSILICATE (LOKELMA) 5 GM PACKET PO SCH (09:06)
[2022-09-04] MEDS: POLYETHYLENE GLYCOL (HEALTHYLAX) 3350 17 GM PACKET PO SCH (09:06)
[2022-09-04] MEDS: LIDOCAINE 5% TOPICAL PATCH TP SCH (09:06)
[2022-09-04] MEDS: HALOPERIDOL LACTATE 5 MG/ML IM PRN ×2 (09:12→21:47)
[2022-09-04] MEDS ORDERED: LORazepam 1 MG TABLET PO SCH (09:38)
[2022-09-04] MEDS ORDERED: QUEtiapine FUMARATE 50 MG TABLET PO ONE (11:00)
[2022-09-04] MEDS: QUEtiapine FUMARATE 50 MG TABLET PO SCH (21:43)
[2022-09-04] MEDS: ATORVASTATIN CA 20 MG TABLET (FP) PO SCH (21:44)
[2022-09-04] MEDS: LIDOCAINE PATCH REMOVAL MC SCH (21:44)
[2022-09-05] MEDS: LORazepam 1 MG TABLET PO SCH ×4 (05:45→17:37)
[2022-09-05] MEDS: hydrALAZINE HCL 50 MG TABLET (FP) PO SCH ×4 (05:45→17:37)
[2022-09-05] MEDS: DOCUSATE SODIUM 100 MG CAPSULE (FP) PO SCH ×3 (05:45→21:50)
[2022-09-05] MEDS: FERROUS SO4 325 MG TABLET (FP) PO SCH ×3 (09:24→17:37)
[2022-09-05] MEDS: SODIUM ZIRCONIUM CYCLOSILICATE (LOKELMA) 5 GM PACKET PO SCH (09:25)
[2022-09-05] MEDS: FOLIC ACID 1 MG TABLET (FP) PO SCH (09:25)
[2022-09-05] MEDS: LIDOCAINE 5% TOPICAL PATCH TP SCH (09:25)
[2022-09-05] MEDS: amLODIPine BESYLATE 10 MG TABLET (FP) PO SCH (09:25)
[2022-09-05] MEDS: OLANZapine 5 MG TABLET PO SCH ×2 (09:25→21:50)
[2022-09-05] MEDS: levETIRAcetam 500 MG TABLET (FP) PO SCH ×2 (09:25→21:50)
[2022-09-05] MEDS: CARVEDILOL 25 MG TABLET (FP) PO SCH ×2 (09:25→21:50)
[2022-09-05] MEDS: MULTIVITAMINS (DAILY MVI) TABLET (FP) PO SCH (09:25)
[2022-09-05] MEDS: TAMSULOSIN HCL 0.4 MG CAP PO SCH (09:25)
[2022-09-05] MEDS: SODIUM BICARBONATE 650 MG TABLET PO SCH ×2 (09:25→21:50)
[2022-09-05] MEDS: DOXYCYCLINE HYCLATE 100 MG CAPSULE PO SCH ×2 (09:26→17:37)
[2022-09-05] MEDS: POLYETHYLENE GLYCOL (HEALTHYLAX) 3350 17 GM PACKET PO SCH (09:26)
[2022-09-05 11:21] LABS: CHLORIDE 117 mmol/L (98-107); SODIUM 147 mmol/L (136-145)
[2022-09-05 11:31] LABS: ANION GAP 11 MMOL/L (8-16); CO2 19 mmol/L (21-32); GLUCOSE,RANDOM 89 mg/dL (74-106)
[2022-09-05 11:35] LABS: CREATININE 3.9 mg/dL (0.55-1.3)
[2022-09-05] MEDS: QUEtiapine FUMARATE 50 MG TABLET PO SCH (21:49)
[2022-09-05] MEDS: ATORVASTATIN CA 20 MG TABLET (FP) PO SCH (21:50)
[2022-09-05] MEDS: LIDOCAINE PATCH REMOVAL MC SCH (21:51)
[2022-09-06] MEDS: LORazepam 1 MG TABLET PO SCH ×4 (01:22→18:03)
[2022-09-06] MEDS: hydrALAZINE HCL 50 MG TABLET (FP) PO SCH ×4 (01:23→18:03)
[2022-09-06] MEDS: DOCUSATE SODIUM 100 MG CAPSULE (FP) PO SCH ×3 (06:10→22:12)
[2022-09-06] MEDS: OLANZapine 5 MG TABLET PO SCH ×2 (09:46→22:11)
[2022-09-06] MEDS: MULTIVITAMINS (DAILY MVI) TABLET (FP) PO SCH (09:47)
[2022-09-06] MEDS: levETIRAcetam 500 MG TABLET (FP) PO SCH ×2 (09:47→22:12)
[2022-09-06] MEDS: FOLIC ACID 1 MG TABLET (FP) PO SCH (09:47)
[2022-09-06] MEDS: TAMSULOSIN HCL 0.4 MG CAP PO SCH (09:47)
[2022-09-06] MEDS: SODIUM ZIRCONIUM CYCLOSILICATE (LOKELMA) 5 GM PACKET PO SCH (09:47)
[2022-09-06] MEDS: amLODIPine BESYLATE 10 MG TABLET (FP) PO SCH (09:47)
[2022-09-06] MEDS: FERROUS SO4 325 MG TABLET (FP) PO SCH ×3 (09:47→18:03)
[2022-09-06] MEDS: CARVEDILOL 25 MG TABLET (FP) PO SCH ×2 (09:47→22:12)
[2022-09-06] MEDS: SODIUM BICARBONATE 650 MG TABLET PO SCH ×2 (09:47→22:11)
[2022-09-06] MEDS: POLYETHYLENE GLYCOL (HEALTHYLAX) 3350 17 GM PACKET PO SCH (09:47)
[2022-09-06] MEDS: LIDOCAINE 5% TOPICAL PATCH TP SCH (09:48)
[2022-09-06] MEDS: DOXYCYCLINE HYCLATE 100 MG CAPSULE PO SCH ×2 (09:48→18:03)
[2022-09-06] MEDS: QUEtiapine FUMARATE 50 MG TABLET PO SCH (22:11)
[2022-09-06] MEDS: LIDOCAINE PATCH REMOVAL MC SCH (22:12)
[2022-09-06] MEDS: ATORVASTATIN CA 20 MG TABLET (FP) PO SCH (22:12)
[2022-09-07] MEDS: LORazepam 1 MG TABLET PO SCH ×4 (00:19→17:31)
[2022-09-07] MEDS: hydrALAZINE HCL 50 MG TABLET (FP) PO SCH ×4 (00:19→17:32)
[2022-09-07] MEDS: HALOPERIDOL LACTATE 5 MG/ML IM PRN ×2 (03:56→16:58)
[2022-09-07] MEDS: DOCUSATE SODIUM 100 MG CAPSULE (FP) PO SCH ×3 (06:33→21:24)
[2022-09-07] MEDS: SODIUM ZIRCONIUM CYCLOSILICATE (LOKELMA) 5 GM PACKET PO SCH (10:05)
[2022-09-07] MEDS: LIDOCAINE 5% TOPICAL PATCH TP SCH (10:05)
[2022-09-07] MEDS: POLYETHYLENE GLYCOL (HEALTHYLAX) 3350 17 GM PACKET PO SCH (10:06)
[2022-09-07] MEDS: TAMSULOSIN HCL 0.4 MG CAP PO SCH (10:06)
[2022-09-07] MEDS: levETIRAcetam 500 MG TABLET (FP) PO SCH ×2 (10:06→21:24)
[2022-09-07] MEDS: amLODIPine BESYLATE 10 MG TABLET (FP) PO SCH (10:06)
[2022-09-07] MEDS: FOLIC ACID 1 MG TABLET (FP) PO SCH (10:06)
[2022-09-07] MEDS: OLANZapine 5 MG TABLET PO SCH ×2 (10:06→21:25)
[2022-09-07] MEDS: SODIUM BICARBONATE 650 MG TABLET PO SCH ×2 (10:06→21:25)
[2022-09-07] MEDS: MULTIVITAMINS (DAILY MVI) TABLET (FP) PO SCH (10:06)
[2022-09-07] MEDS: DOXYCYCLINE HYCLATE 100 MG CAPSULE PO SCH ×2 (10:07→17:32)
[2022-09-07] MEDS: CARVEDILOL 25 MG TABLET (FP) PO SCH ×2 (10:07→21:24)
[2022-09-07] MEDS: FERROUS SO4 325 MG TABLET (FP) PO SCH ×3 (10:07→17:32)
[2022-09-07 10:16] LABS: CHLORIDE 116 mmol/L (98-107); SODIUM 147 mmol/L (136-145)
[2022-09-07 10:25] LABS: CALCIUM 9.5 mg/dL (8.5-10.1)
[2022-09-07 10:26] LABS: ANION GAP 10 MMOL/L (8-16); CO2 20 mmol/L (21-32); GLUCOSE,RANDOM 111 mg/dL (74-106)
[2022-09-07 10:29] LABS: CREATININE 3.8 mg/dL (0.55-1.3)
[2022-09-07 11:23] LABS: BLOOD UREA NITROGEN 109.1 mg/dL (7-18)
[2022-09-07] MEDS: QUEtiapine FUMARATE 50 MG TABLET PO SCH (21:24)
[2022-09-07] MEDS: LIDOCAINE PATCH REMOVAL MC SCH (21:25)
[2022-09-07] MEDS: ATORVASTATIN CA 20 MG TABLET (FP) PO SCH (21:25)
[2022-09-08] MEDS: hydrALAZINE HCL 50 MG TABLET (FP) PO SCH ×4 (00:32→17:31)
[2022-09-08] MEDS: LORazepam 1 MG TABLET PO SCH ×4 (00:33→19:31)
[2022-09-08] MEDS: DOCUSATE SODIUM 100 MG CAPSULE (FP) PO SCH ×3 (05:35→22:20)
[2022-09-08] MEDS: FOLIC ACID 1 MG TABLET (FP) PO SCH (10:28)
[2022-09-08] MEDS: amLODIPine BESYLATE 10 MG TABLET (FP) PO SCH (10:28)
[2022-09-08] MEDS: CARVEDILOL 25 MG TABLET (FP) PO SCH ×2 (10:28→22:21)
[2022-09-08] MEDS: SODIUM BICARBONATE 650 MG TABLET PO SCH ×2 (10:28→22:20)
[2022-09-08] MEDS: levETIRAcetam 500 MG TABLET (FP) PO SCH ×2 (10:28→22:20)
[2022-09-08] MEDS: MULTIVITAMINS (DAILY MVI) TABLET (FP) PO SCH (10:28)
[2022-09-08] MEDS: FERROUS SO4 325 MG TABLET (FP) PO SCH ×3 (10:28→17:31)
[2022-09-08] MEDS: OLANZapine 5 MG TABLET PO SCH ×2 (10:28→22:20)
[2022-09-08] MEDS: TAMSULOSIN HCL 0.4 MG CAP PO SCH (10:29)
[2022-09-08] MEDS: POLYETHYLENE GLYCOL (HEALTHYLAX) 3350 17 GM PACKET PO SCH (10:29)
[2022-09-08] MEDS: LIDOCAINE 5% TOPICAL PATCH TP SCH (10:29)
[2022-09-08] MEDS: SODIUM ZIRCONIUM CYCLOSILICATE (LOKELMA) 5 GM PACKET PO SCH (10:29)
[2022-09-08] MEDS: DOXYCYCLINE HYCLATE 100 MG CAPSULE PO SCH ×2 (10:30→17:32)
[2022-09-08] MEDS: QUEtiapine FUMARATE 50 MG TABLET PO SCH (22:20)
[2022-09-08] MEDS: LIDOCAINE PATCH REMOVAL MC SCH (22:21)
[2022-09-08] MEDS: ATORVASTATIN CA 20 MG TABLET (FP) PO SCH (22:21)
[2022-09-09] MEDS: LORazepam 1 MG TABLET PO SCH ×4 (01:32→17:02)
[2022-09-09] MEDS: hydrALAZINE HCL 50 MG TABLET (FP) PO SCH ×4 (01:33→17:02)
[2022-09-09] MEDS: DOCUSATE SODIUM 100 MG CAPSULE (FP) PO SCH ×3 (06:59→21:39)
[2022-09-09] MEDS: TAMSULOSIN HCL 0.4 MG CAP PO SCH (09:48)
[2022-09-09] MEDS: FERROUS SO4 325 MG TABLET (FP) PO SCH ×3 (09:48→16:57)
[2022-09-09] MEDS: FOLIC ACID 1 MG TABLET (FP) PO SCH (09:48)
[2022-09-09] MEDS: OLANZapine 5 MG TABLET PO SCH ×2 (09:48→21:39)
[2022-09-09] MEDS: SODIUM BICARBONATE 650 MG TABLET PO SCH ×2 (09:48→21:39)
[2022-09-09] MEDS: levETIRAcetam 500 MG TABLET (FP) PO SCH ×2 (09:48→21:39)
[2022-09-09] MEDS: MULTIVITAMINS (DAILY MVI) TABLET (FP) PO SCH (09:48)
[2022-09-09] MEDS: amLODIPine BESYLATE 10 MG TABLET (FP) PO SCH (09:48)
[2022-09-09] MEDS: SODIUM ZIRCONIUM CYCLOSILICATE (LOKELMA) 5 GM PACKET PO SCH (09:49)
[2022-09-09] MEDS: POLYETHYLENE GLYCOL (HEALTHYLAX) 3350 17 GM PACKET PO SCH (09:49)
[2022-09-09] MEDS: LIDOCAINE 5% TOPICAL PATCH TP SCH (09:49)
[2022-09-09] MEDS: CARVEDILOL 25 MG TABLET (FP) PO SCH ×2 (09:50→21:39)
[2022-09-09] MEDS: DOXYCYCLINE HYCLATE 100 MG CAPSULE PO SCH ×2 (09:50→17:03)
[2022-09-09 10:21] LABS: CHLORIDE 116 mmol/L (98-107); SODIUM 147 mmol/L (136-145)
[2022-09-09 10:28] LABS: CALCIUM 9.4 mg/dL (8.5-10.1)
[2022-09-09 10:29] LABS: ANION GAP 12 MMOL/L (8-16); CO2 19 mmol/L (21-32); GLUCOSE,RANDOM 104 mg/dL (74-106)
[2022-09-09 10:32] LABS: CREATININE 4.1 mg/dL (0.55-1.3)
[2022-09-09 10:35] LABS: BLOOD UREA NITROGEN 110.9 mg/dL (7-18)
[2022-09-09] MEDS: ATORVASTATIN CA 20 MG TABLET (FP) PO SCH (21:39)
[2022-09-09] MEDS: QUEtiapine FUMARATE 50 MG TABLET PO SCH (21:40)
[2022-09-09] MEDS: HALOPERIDOL LACTATE 5 MG/ML IM PRN (21:44)
[2022-09-09] MEDS: LIDOCAINE PATCH REMOVAL MC SCH (21:51)
[2022-09-10] MEDS: LORazepam 1 MG TABLET PO SCH ×5 (00:16→23:47)
[2022-09-10] MEDS: hydrALAZINE HCL 50 MG TABLET (FP) PO SCH ×5 (00:17→23:47)
[2022-09-10] MEDS: DOCUSATE SODIUM 100 MG CAPSULE (FP) PO SCH ×3 (06:10→21:37)
[2022-09-10] MEDS: FERROUS SO4 325 MG TABLET (FP) PO SCH ×3 (08:22→17:11)
[2022-09-10] MEDS: HALOPERIDOL LACTATE 5 MG/ML IM PRN (08:22)
[2022-09-10] MEDS: TAMSULOSIN HCL 0.4 MG CAP PO SCH (08:22)
[2022-09-10] MEDS: CARVEDILOL 25 MG TABLET (FP) PO SCH ×2 (10:11→21:38)
[2022-09-10] MEDS: levETIRAcetam 500 MG TABLET (FP) PO SCH ×2 (10:11→21:37)
[2022-09-10] MEDS: OLANZapine 5 MG TABLET PO SCH ×2 (10:11→21:37)
[2022-09-10] MEDS: SODIUM BICARBONATE 650 MG TABLET PO SCH ×2 (10:12→21:38)
[2022-09-10] MEDS: POLYETHYLENE GLYCOL (HEALTHYLAX) 3350 17 GM PACKET PO SCH (10:12)
[2022-09-10] MEDS: FOLIC ACID 1 MG TABLET (FP) PO SCH (10:12)
[2022-09-10] MEDS: SODIUM ZIRCONIUM CYCLOSILICATE (LOKELMA) 5 GM PACKET PO SCH (10:12)
[2022-09-10] MEDS: LIDOCAINE 5% TOPICAL PATCH TP SCH (10:12)
[2022-09-10] MEDS: MULTIVITAMINS (DAILY MVI) TABLET (FP) PO SCH (10:12)
[2022-09-10] MEDS: amLODIPine BESYLATE 10 MG TABLET (FP) PO SCH (10:12)
[2022-09-10] MEDS: DOXYCYCLINE HYCLATE 100 MG CAPSULE PO SCH ×2 (10:13→17:11)
[2022-09-10] MEDS: HEPARIN NA (PORCINE) 5,000 UNITS/ML 1ML VIAL SQ SCH ×2 (13:45→21:37)
[2022-09-10 14:15] LABS: BASO % 0.6 % (0-2.0); EOS % 5.2 % (0-4.5); HEMATOCRIT 25.4 % (35.4-49); HEMOGLOBIN 8.1 GM/dL (11.7-16.9); LYMPH % 17.1 % (8-40); MCH 27.8 pg (25.7-33.7); MCHC 31.7 g/dl (32.0-35.9); MEAN CELL VOLUME 87.5 fl (80-96); MONO % 8.1 % (3.8-10.2); PLATELET COUNT 221 10^3/uL (134-434); RBC 2.91 M/mm3 (4.00-5.60); RDW 15.4 % (11.9-15.9)
[2022-09-10] MEDS: ACETAMINOPHEN 500 MG TABLET (FP) PO PRN (17:10)
[2022-09-10] MEDS: ATORVASTATIN CA 20 MG TABLET (FP) PO SCH (21:37)
[2022-09-10] MEDS: QUEtiapine FUMARATE 50 MG TABLET PO SCH (21:37)
[2022-09-10] MEDS: LIDOCAINE PATCH REMOVAL MC SCH (21:38)
[2022-09-11] MEDS: hydrALAZINE HCL 50 MG TABLET (FP) PO SCH ×4 (06:05→23:00)
[2022-09-11] MEDS: DOCUSATE SODIUM 100 MG CAPSULE (FP) PO SCH ×3 (06:05→22:50)
[2022-09-11] MEDS: LORazepam 1 MG TABLET PO SCH ×4 (06:05→23:00)
[2022-09-11] MEDS: ACETAMINOPHEN 500 MG TABLET (FP) PO PRN ×2 (06:06→23:00)
[2022-09-11 08:40] LABS: EPI CELLS 25 /uL (0-25.1); HYALINE CASTS 55 /uL (0-3.1); PH,URINE 5.5 (5.0-8.0); URINE APPEARANCE TURBID; URINE BACTERIA 4141 /uL (0-1359); URINE BILIRUBIN NEGATIVE (NEGATIVE); URINE COLOR ORANGE; URINE GLUCOSE (UA) NEGATIVE (NEGATIVE); URINE KETONE NEGATIVE (NEGATIVE); URINE LEUK ESTERASE 3+ (NEGATIVE); URINE NITRITE POSITIVE (NEGATIVE); URINE PROTEIN 3+ (NEGATIVE); URINE WBC 30539 /uL (0-25.8)
[2022-09-11 09:24] LABS: URINE RBC 4385 /uL (0-23.9)
[2022-09-11] MEDS ORDERED: SODIUM CHLORIDE 0.45% 1,000 ML IV SCH (09:45)
[2022-09-11] MEDS: FOLIC ACID 1 MG TABLET (FP) PO SCH (09:56)
[2022-09-11] MEDS: OLANZapine 5 MG TABLET PO SCH ×2 (09:56→22:49)
[2022-09-11] MEDS: CARVEDILOL 25 MG TABLET (FP) PO SCH ×2 (09:56→22:49)
[2022-09-11] MEDS: HEPARIN NA (PORCINE) 5,000 UNITS/ML 1ML VIAL SQ SCH ×2 (09:56→22:49)
[2022-09-11] MEDS: MULTIVITAMINS (DAILY MVI) TABLET (FP) PO SCH (09:56)
[2022-09-11] MEDS: levETIRAcetam 500 MG TABLET (FP) PO SCH ×2 (09:56→22:49)
[2022-09-11] MEDS: amLODIPine BESYLATE 10 MG TABLET (FP) PO SCH (09:56)
[2022-09-11] MEDS: FERROUS SO4 325 MG TABLET (FP) PO SCH ×3 (09:57→17:40)
[2022-09-11] MEDS: DOXYCYCLINE HYCLATE 100 MG CAPSULE PO SCH ×2 (09:57→17:40)
[2022-09-11] MEDS: TAMSULOSIN HCL 0.4 MG CAP PO SCH (09:57)
[2022-09-11] MEDS: LIDOCAINE 5% TOPICAL PATCH TP SCH (09:57)
[2022-09-11] MEDS: POLYETHYLENE GLYCOL (HEALTHYLAX) 3350 17 GM PACKET PO SCH (09:57)
[2022-09-11] MEDS: SODIUM ZIRCONIUM CYCLOSILICATE (LOKELMA) 5 GM PACKET PO SCH (09:57)
[2022-09-11] MEDS: SODIUM BICARBONATE 650 MG TABLET PO SCH ×2 (09:57→22:49)
[2022-09-11] MEDS ORDERED: CEFTRIAXONE 1 GM in DEXTROSE 5%-WATER - 50 ML IVPB SCH (10:00)
[2022-09-11 11:58] LABS: BASO % 0.4 % (0-2.0); EOS % 0.3 % (0-4.5); HEMATOCRIT 26.6 % (35.4-49); HEMOGLOBIN 8.7 GM/dL (11.7-16.9); LYMPH % 7.6 % (8-40); MCH 28.5 pg (25.7-33.7); MCHC 32.7 g/dl (32.0-35.9); MEAN CELL VOLUME 87.1 fl (80-96); MEAN PLT VOLUME 8.2 fl (7.5-11.1); NEUT % 83.7 % (42.8-82.8); PLATELET COUNT 205 10^3/uL (134-434); RBC 3.05 M/mm3 (4.00-5.60); RDW 15.6 % (11.9-15.9); WHITE BLOOD COUNT 9.4 K/mm3 (4.0-10.0)
[2022-09-11 12:22] LABS: CHLORIDE 115 mmol/L (98-107); SODIUM 147 mmol/L (136-145)
[2022-09-11 12:38] LABS: ANION GAP 15 MMOL/L (8-16); CALCIUM 8.7 mg/dL (8.5-10.1); CO2 17 mmol/L (21-32); GLUCOSE,RANDOM 135 mg/dL (74-106); MAGNESIUM 1.9 mg/dL (1.8-2.4)
[2022-09-11] MEDS: SODIUM CHLORIDE 0.45% 1,000 ML IV SCH ×2 (12:40→22:50)
[2022-09-11 12:41] LABS: CREATININE 5.1 mg/dL (0.55-1.3)
[2022-09-11 12:42] LABS: BLOOD UREA NITROGEN 116.5 mg/dL (7-18)
[2022-09-11] MEDS: HALOPERIDOL LACTATE 5 MG/ML IM PRN (15:35)
[2022-09-11] MEDS: PIPERACILLIN/TAZOB 2.25 GM 2.25 GM in DEXTROSE 5%-WATER - 50 ML IVPB SCH (19:05)
[2022-09-11] MEDS: ATORVASTATIN CA 20 MG TABLET (FP) PO SCH (22:49)
[2022-09-11] MEDS: QUEtiapine FUMARATE 50 MG TABLET PO SCH (22:49)
[2022-09-11] MEDS: LIDOCAINE PATCH REMOVAL MC SCH (22:50)
[2022-09-12] MEDS: PIPERACILLIN/TAZOB 2.25 GM 2.25 GM in DEXTROSE 5%-WATER - 50 ML IVPB SCH ×3 (01:58→17:18)
[2022-09-12] MEDS: hydrALAZINE HCL 50 MG TABLET (FP) PO SCH ×3 (05:55→17:18)
[2022-09-12] MEDS: LORazepam 1 MG TABLET PO SCH ×3 (05:55→17:18)
[2022-09-12] MEDS: DOCUSATE SODIUM 100 MG CAPSULE (FP) PO SCH ×3 (05:55→22:13)
[2022-09-12] MEDS: LIDOCAINE 5% TOPICAL PATCH TP SCH (09:34)
[2022-09-12] MEDS: OLANZapine 5 MG TABLET PO SCH ×2 (09:35→22:14)
[2022-09-12] MEDS: levETIRAcetam 500 MG TABLET (FP) PO SCH ×2 (09:35→22:13)
[2022-09-12] MEDS: TAMSULOSIN HCL 0.4 MG CAP PO SCH (09:35)
[2022-09-12] MEDS: FERROUS SO4 325 MG TABLET (FP) PO SCH ×3 (09:36→17:18)
[2022-09-12] MEDS: amLODIPine BESYLATE 10 MG TABLET (FP) PO SCH (09:36)
[2022-09-12] MEDS: SODIUM ZIRCONIUM CYCLOSILICATE (LOKELMA) 5 GM PACKET PO SCH (09:36)
[2022-09-12] MEDS: HEPARIN NA (PORCINE) 5,000 UNITS/ML 1ML VIAL SQ SCH ×2 (09:36→22:13)
[2022-09-12] MEDS: DOXYCYCLINE HYCLATE 100 MG CAPSULE PO SCH ×2 (09:36→17:18)
[2022-09-12] MEDS: MULTIVITAMINS (DAILY MVI) TABLET (FP) PO SCH (09:36)
[2022-09-12] MEDS: CARVEDILOL 25 MG TABLET (FP) PO SCH ×2 (09:36→22:13)
[2022-09-12] MEDS: SODIUM BICARBONATE 650 MG TABLET PO SCH ×2 (09:36→22:13)
[2022-09-12] MEDS: POLYETHYLENE GLYCOL (HEALTHYLAX) 3350 17 GM PACKET PO SCH (09:36)
[2022-09-12] MEDS: FOLIC ACID 1 MG TABLET (FP) PO SCH (09:36)
[2022-09-12] MEDS: SODIUM CHLORIDE 0.45% 1,000 ML IV SCH ×2 (09:38→18:44)
[2022-09-12 09:59] LABS: BASO % 0.4 % (0-2.0); EOS % 2.6 % (0-4.5); HEMATOCRIT 26.1 % (35.4-49); HEMOGLOBIN 8.5 GM/dL (11.7-16.9); LYMPH % 11.2 % (8-40); MCHC 32.5 g/dl (32.0-35.9); MEAN PLT VOLUME 8.1 fl (7.5-11.1); MONO % 10.1 % (3.8-10.2); NEUT % 75.7 % (42.8-82.8); PLATELET COUNT 183 10^3/uL (134-434); RBC 3.04 M/mm3 (4.00-5.60); RDW 15.9 % (11.9-15.9); WHITE BLOOD COUNT 7.8 K/mm3 (4.0-10.0)
[2022-09-12] MEDS: ATORVASTATIN CA 20 MG TABLET (FP) PO SCH (22:13)
[2022-09-12] MEDS: LIDOCAINE PATCH REMOVAL MC SCH (22:14)
[2022-09-12] MEDS: QUEtiapine FUMARATE 50 MG TABLET PO SCH (22:14)
[2022-09-13] MEDS: hydrALAZINE HCL 50 MG TABLET (FP) PO SCH ×4 (00:16→18:04)
[2022-09-13] MEDS: LORazepam 1 MG TABLET PO SCH ×4 (00:16→18:04)
[2022-09-13] MEDS: PIPERACILLIN/TAZOB 2.25 GM 2.25 GM in DEXTROSE 5%-WATER - 50 ML IVPB SCH ×2 (02:12→09:33)
[2022-09-13] MEDS: DOCUSATE SODIUM 100 MG CAPSULE (FP) PO SCH ×3 (06:19→23:17)
[2022-09-13] MEDS: FOLIC ACID 1 MG TABLET (FP) PO SCH (09:32)
[2022-09-13] MEDS: CARVEDILOL 25 MG TABLET (FP) PO SCH ×2 (09:32→23:14)
[2022-09-13] MEDS: levETIRAcetam 500 MG TABLET (FP) PO SCH ×2 (09:32→23:14)
[2022-09-13] MEDS: amLODIPine BESYLATE 10 MG TABLET (FP) PO SCH (09:33)
[2022-09-13] MEDS: TAMSULOSIN HCL 0.4 MG CAP PO SCH (09:33)
[2022-09-13] MEDS: FERROUS SO4 325 MG TABLET (FP) PO SCH ×3 (09:33→18:04)
[2022-09-13] MEDS: SODIUM BICARBONATE 650 MG TABLET PO SCH ×3 (09:33→23:14)
[2022-09-13] MEDS: OLANZapine 5 MG TABLET PO SCH ×2 (09:33→23:13)
[2022-09-13] MEDS: POLYETHYLENE GLYCOL (HEALTHYLAX) 3350 17 GM PACKET PO SCH (09:35)
[2022-09-13] MEDS: HEPARIN NA (PORCINE) 5,000 UNITS/ML 1ML VIAL SQ SCH ×2 (09:44→23:14)
[2022-09-13] MEDS: LIDOCAINE 5% TOPICAL PATCH TP SCH (09:48)
[2022-09-13] MEDS: MULTIVITAMINS (DAILY MVI) TABLET (FP) PO SCH (09:50)
[2022-09-13] MEDS: DOXYCYCLINE HYCLATE 100 MG CAPSULE PO SCH (09:50)
[2022-09-13] MEDS ORDERED: SODIUM ZIRCONIUM CYCLOSILICATE (LOKELMA) 10 GM PACKET PO SCH (10:14)
[2022-09-13 10:23] LABS: BASO % 0.5 % (0-2.0); EOS % 5.3 % (0-4.5); HEMATOCRIT 24.7 % (35.4-49); LYMPH % 17.8 % (8-40); MCH 27.9 pg (25.7-33.7); MCHC 32.6 g/dl (32.0-35.9); MEAN CELL VOLUME 85.6 fl (80-96); MEAN PLT VOLUME 8.3 fl (7.5-11.1); MONO % 13.8 % (3.8-10.2); NEUT % 62.6 % (42.8-82.8); PLATELET COUNT 198 10^3/uL (134-434); RBC 2.88 M/mm3 (4.00-5.60); RDW 15.7 % (11.9-15.9); WHITE BLOOD COUNT 6.5 K/mm3 (4.0-10.0)
[2022-09-13 10:40] LABS: CHLORIDE 112 mmol/L (98-107); SODIUM 144 mmol/L (136-145)
[2022-09-13 10:44] LABS: ALBUMIN 2.8 g/dl (3.4-5.0); ANION GAP 13 MMOL/L (8-16); CALCIUM 8.6 mg/dL (8.5-10.1); CO2 18 mmol/L (21-32); GLUCOSE,RANDOM 123 mg/dL (74-106); MAGNESIUM 1.8 mg/dL (1.8-2.4)
[2022-09-13 10:47] LABS: CREATININE 4.9 mg/dL (0.55-1.3); SGOT/AST 28 U/L (15-37); SGPT/ALT 25 U/L (13-61)
[2022-09-13 10:49] LABS: BILIRUBIN,TOTAL 0.4 mg/dL (0.2-1); TOT PROT 7.1 g/dl (6.4-8.2)
[2022-09-13 10:50] LABS: ALK PHOS 76 U/L (45-117)
[2022-09-13 10:54] LABS: BLOOD UREA NITROGEN 105.1 mg/dL (7-18)
[2022-09-13] MEDS: SODIUM ZIRCONIUM CYCLOSILICATE (LOKELMA) 5 GM PACKET PO SCH (11:31)
[2022-09-13] MEDS: SODIUM ZIRCONIUM CYCLOSILICATE (LOKELMA) 10 GM PACKET PO SCH (11:32)
[2022-09-13] MEDS: ERTAPENEM SODIUM 0.5 GM in SODIUM CHLORIDE 50 ML IVPB SCH (11:32)
[2022-09-13] MEDS: SODIUM CHLORIDE 0.45% 1,000 ML IV SCH (12:24)
[2022-09-13] MEDS: QUEtiapine FUMARATE 50 MG TABLET PO SCH (23:13)
[2022-09-13] MEDS: LIDOCAINE PATCH REMOVAL MC SCH (23:15)
[2022-09-13] MEDS: ATORVASTATIN CA 20 MG TABLET (FP) PO SCH (23:15)
[2022-09-14] MEDS: hydrALAZINE HCL 50 MG TABLET (FP) PO SCH ×5 (01:00→23:38)
[2022-09-14] MEDS: LORazepam 1 MG TABLET PO SCH ×5 (01:00→23:37)
[2022-09-14] MEDS: SODIUM BICARBONATE 650 MG TABLET PO SCH ×3 (06:40→21:21)
[2022-09-14] MEDS: DOCUSATE SODIUM 100 MG CAPSULE (FP) PO SCH ×3 (06:40→21:21)
[2022-09-14] MEDS: SODIUM CHLORIDE 0.45% 1,000 ML IV SCH ×2 (06:46→18:28)
[2022-09-14] MEDS: FOLIC ACID 1 MG TABLET (FP) PO SCH (09:54)
[2022-09-14] MEDS: FERROUS SO4 325 MG TABLET (FP) PO SCH ×3 (09:54→18:28)
[2022-09-14] MEDS: CARVEDILOL 25 MG TABLET (FP) PO SCH ×2 (09:55→21:21)
[2022-09-14] MEDS: HEPARIN NA (PORCINE) 5,000 UNITS/ML 1ML VIAL SQ SCH ×2 (09:55→21:21)
[2022-09-14] MEDS: POLYETHYLENE GLYCOL (HEALTHYLAX) 3350 17 GM PACKET PO SCH (09:55)
[2022-09-14] MEDS: TAMSULOSIN HCL 0.4 MG CAP PO SCH (09:55)
[2022-09-14] MEDS: OLANZapine 5 MG TABLET PO SCH ×2 (09:55→21:21)
[2022-09-14] MEDS: amLODIPine BESYLATE 10 MG TABLET (FP) PO SCH (09:55)
[2022-09-14] MEDS: levETIRAcetam 500 MG TABLET (FP) PO SCH ×2 (09:55→21:21)
[2022-09-14] MEDS: LIDOCAINE 5% TOPICAL PATCH TP SCH (09:56)
[2022-09-14] MEDS: SODIUM ZIRCONIUM CYCLOSILICATE (LOKELMA) 10 GM PACKET PO SCH (09:56)
[2022-09-14] MEDS: MULTIVITAMINS (DAILY MVI) TABLET (FP) PO SCH (09:56)
[2022-09-14 10:39] LABS: BASO % 0.6 % (0-2.0); EOS % 5.9 % (0-4.5); HEMATOCRIT 24.6 % (35.4-49); HEMOGLOBIN 8.1 GM/dL (11.7-16.9); LYMPH % 25.9 % (8-40); MCH 28.5 pg (25.7-33.7); MEAN CELL VOLUME 86.4 fl (80-96); MEAN PLT VOLUME 7.5 fl (7.5-11.1); MONO % 12.5 % (3.8-10.2); NEUT % 55.1 % (42.8-82.8); PLATELET COUNT 195 10^3/uL (134-434); RBC 2.85 M/mm3 (4.00-5.60); RDW 15.3 % (11.9-15.9); WHITE BLOOD COUNT 6.2 K/mm3 (4.0-10.0)
[2022-09-14] MEDS: ERTAPENEM SODIUM 0.5 GM in SODIUM CHLORIDE 50 ML IVPB SCH (10:47)
[2022-09-14 11:01] LABS: CALCIUM 8.8 mg/dL (8.5-10.1)
[2022-09-14 11:02] LABS: BLOOD UREA NITROGEN 94.8 mg/dL (7-18)
[2022-09-14 11:04] LABS: CREATININE 4.4 mg/dL (0.55-1.3)
[2022-09-14] MEDS: HALOPERIDOL LACTATE 5 MG/ML IM PRN ×2 (12:59→23:37)
[2022-09-14] MEDS: LIDOCAINE PATCH REMOVAL MC SCH (21:22)
[2022-09-14] MEDS: ATORVASTATIN CA 20 MG TABLET (FP) PO SCH (21:22)
[2022-09-14] MEDS: QUEtiapine FUMARATE 50 MG TABLET PO SCH (22:21)
[2022-09-15] MEDS: DOCUSATE SODIUM 100 MG CAPSULE (FP) PO SCH ×3 (05:13→22:08)
[2022-09-15] MEDS: SODIUM BICARBONATE 650 MG TABLET PO SCH ×3 (05:13→22:07)
[2022-09-15] MEDS: hydrALAZINE HCL 50 MG TABLET (FP) PO SCH ×3 (05:13→17:07)
[2022-09-15] MEDS: LORazepam 1 MG TABLET PO SCH ×3 (05:13→17:07)
[2022-09-15] MEDS: POLYETHYLENE GLYCOL (HEALTHYLAX) 3350 17 GM PACKET PO SCH (09:44)
[2022-09-15] MEDS: CARVEDILOL 25 MG TABLET (FP) PO SCH ×2 (09:44→22:07)
[2022-09-15] MEDS: HEPARIN NA (PORCINE) 5,000 UNITS/ML 1ML VIAL SQ SCH ×2 (09:44→22:08)
[2022-09-15] MEDS: amLODIPine BESYLATE 10 MG TABLET (FP) PO SCH (09:44)
[2022-09-15] MEDS: OLANZapine 5 MG TABLET PO SCH ×2 (09:44→22:07)
[2022-09-15] MEDS: FOLIC ACID 1 MG TABLET (FP) PO SCH (09:44)
[2022-09-15] MEDS: FERROUS SO4 325 MG TABLET (FP) PO SCH ×3 (09:44→17:07)
[2022-09-15] MEDS: levETIRAcetam 500 MG TABLET (FP) PO SCH ×2 (09:44→22:07)
[2022-09-15] MEDS: TAMSULOSIN HCL 0.4 MG CAP PO SCH (09:44)
[2022-09-15] MEDS: SODIUM ZIRCONIUM CYCLOSILICATE (LOKELMA) 10 GM PACKET PO SCH (09:44)
[2022-09-15] MEDS: LIDOCAINE 5% TOPICAL PATCH TP SCH (09:44)
[2022-09-15] MEDS: MULTIVITAMINS (DAILY MVI) TABLET (FP) PO SCH (09:44)
[2022-09-15] MEDS: ERTAPENEM SODIUM 0.5 GM in SODIUM CHLORIDE 50 ML IVPB SCH (10:21)
[2022-09-15 10:23] LABS: EOS % 4.8 % (0-4.5); HEMOGLOBIN 7.7 GM/dL (11.7-16.9); LYMPH % 24.7 % (8-40); MCH 28.7 pg (25.7-33.7); MCHC 33.5 g/dl (32.0-35.9); MEAN CELL VOLUME 85.6 fl (80-96); MEAN PLT VOLUME 7.6 fl (7.5-11.1); MONO % 8.6 % (3.8-10.2); NEUT % 60.9 % (42.8-82.8); PLATELET COUNT 193 10^3/uL (134-434); RBC 2.69 M/mm3 (4.00-5.60); RDW 15.2 % (11.9-15.9); WHITE BLOOD COUNT 6.7 K/mm3 (4.0-10.0)
[2022-09-15 10:48] LABS: BLOOD UREA NITROGEN 84.4 mg/dL (7-18)
[2022-09-15 10:50] LABS: CALCIUM 8.7 mg/dL (8.5-10.1)
[2022-09-15 10:51] LABS: CREATININE 3.7 mg/dL (0.55-1.3)
[2022-09-15 10:52] LABS: MAGNESIUM 1.7 mg/dL (1.8-2.4)
[2022-09-15] MEDS: HALOPERIDOL LACTATE 5 MG/ML IM PRN (14:02)
[2022-09-15] MEDS ORDERED: MAGNESIUM OXIDE 400 MG TABLET (FP) PO ONE (15:34)
[2022-09-15] MEDS: SODIUM CHLORIDE 0.45% 1,000 ML IV SCH (16:19)
[2022-09-15] MEDS: ATORVASTATIN CA 20 MG TABLET (FP) PO SCH (22:07)
[2022-09-15] MEDS: QUEtiapine FUMARATE 50 MG TABLET PO SCH (22:08)
[2022-09-15] MEDS: LIDOCAINE PATCH REMOVAL MC SCH (22:08)
[2022-09-16] MEDS: hydrALAZINE HCL 50 MG TABLET (FP) PO SCH ×4 (01:06→17:30)
[2022-09-16] MEDS: LORazepam 1 MG TABLET PO SCH ×5 (01:06→18:16)
[2022-09-16] MEDS: SODIUM BICARBONATE 650 MG TABLET PO SCH ×3 (06:24→22:59)
[2022-09-16] MEDS: DOCUSATE SODIUM 100 MG CAPSULE (FP) PO SCH ×3 (06:24→22:59)
[2022-09-16 09:57] LABS: BLOOD UREA NITROGEN 77.9 mg/dL (7-18); CALCIUM 8.8 mg/dL (8.5-10.1)
[2022-09-16] MEDS: LIDOCAINE 5% TOPICAL PATCH TP SCH (10:00)
[2022-09-16 10:01] LABS: CREATININE 3.2 mg/dL (0.55-1.3)
[2022-09-16] MEDS: MULTIVITAMINS (DAILY MVI) TABLET (FP) PO SCH (10:01)
[2022-09-16] MEDS: HEPARIN NA (PORCINE) 5,000 UNITS/ML 1ML VIAL SQ SCH ×2 (10:01→23:00)
[2022-09-16] MEDS: amLODIPine BESYLATE 10 MG TABLET (FP) PO SCH (10:01)
[2022-09-16] MEDS: FERROUS SO4 325 MG TABLET (FP) PO SCH ×3 (10:01→17:30)
[2022-09-16] MEDS: SODIUM ZIRCONIUM CYCLOSILICATE (LOKELMA) 10 GM PACKET PO SCH (10:01)
[2022-09-16] MEDS: FOLIC ACID 1 MG TABLET (FP) PO SCH (10:01)
[2022-09-16] MEDS: OLANZapine 5 MG TABLET PO SCH ×2 (10:01→23:02)
[2022-09-16] MEDS: levETIRAcetam 500 MG TABLET (FP) PO SCH ×2 (10:02→22:59)
[2022-09-16] MEDS: POLYETHYLENE GLYCOL (HEALTHYLAX) 3350 17 GM PACKET PO SCH (10:02)
[2022-09-16] MEDS: CARVEDILOL 25 MG TABLET (FP) PO SCH ×2 (10:02→22:59)
[2022-09-16] MEDS: TAMSULOSIN HCL 0.4 MG CAP PO SCH (10:02)
[2022-09-16] MEDS: ERTAPENEM SODIUM 0.5 GM in SODIUM CHLORIDE 50 ML IVPB SCH (10:15)
[2022-09-16] MEDS: SODIUM CHLORIDE 0.45% 1,000 ML IV SCH (14:59)
[2022-09-16] MEDS: QUEtiapine FUMARATE 50 MG TABLET PO SCH (22:00)
[2022-09-16] MEDS: ATORVASTATIN CA 20 MG TABLET (FP) PO SCH (22:59)
[2022-09-16] MEDS: LIDOCAINE PATCH REMOVAL MC SCH (23:00)
[2022-09-17] MEDS: hydrALAZINE HCL 50 MG TABLET (FP) PO SCH ×4 (00:51→17:39)
[2022-09-17] MEDS: LORazepam 1 MG TABLET PO SCH ×4 (00:52→18:13)
[2022-09-17] MEDS: DOCUSATE SODIUM 100 MG CAPSULE (FP) PO SCH ×3 (06:40→21:43)
[2022-09-17] MEDS: SODIUM BICARBONATE 650 MG TABLET PO SCH ×3 (06:40→21:43)
[2022-09-17] MEDS: POLYETHYLENE GLYCOL (HEALTHYLAX) 3350 17 GM PACKET PO SCH (09:51)
[2022-09-17] MEDS: MULTIVITAMINS (DAILY MVI) TABLET (FP) PO SCH (09:51)
[2022-09-17] MEDS: FERROUS SO4 325 MG TABLET (FP) PO SCH ×3 (09:51→17:39)
[2022-09-17] MEDS: LIDOCAINE 5% TOPICAL PATCH TP SCH (09:51)
[2022-09-17] MEDS: OLANZapine 5 MG TABLET PO SCH ×2 (09:51→21:42)
[2022-09-17] MEDS: SODIUM ZIRCONIUM CYCLOSILICATE (LOKELMA) 10 GM PACKET PO SCH (09:51)
[2022-09-17] MEDS: levETIRAcetam 500 MG TABLET (FP) PO SCH ×2 (09:51→21:43)
[2022-09-17] MEDS: amLODIPine BESYLATE 10 MG TABLET (FP) PO SCH (09:52)
[2022-09-17] MEDS: CARVEDILOL 25 MG TABLET (FP) PO SCH ×2 (09:52→21:43)
[2022-09-17] MEDS: TAMSULOSIN HCL 0.4 MG CAP PO SCH ×2 (09:52→21:42)
[2022-09-17] MEDS: FOLIC ACID 1 MG TABLET (FP) PO SCH (09:53)
[2022-09-17] MEDS: ERTAPENEM SODIUM 0.5 GM in SODIUM CHLORIDE 50 ML IVPB SCH (09:53)
[2022-09-17] MEDS: HEPARIN NA (PORCINE) 5,000 UNITS/ML 1ML VIAL SQ SCH (09:53)
[2022-09-17] MEDS: SODIUM CHLORIDE 0.45% 1,000 ML IV SCH ×2 (12:22→23:11)
[2022-09-17] MEDS: ATORVASTATIN CA 20 MG TABLET (FP) PO SCH (21:37)
[2022-09-17] MEDS: QUEtiapine FUMARATE 50 MG TABLET PO SCH (21:37)
[2022-09-17] MEDS: LIDOCAINE PATCH REMOVAL MC SCH (21:43)
[2022-09-18] MEDS: hydrALAZINE HCL 50 MG TABLET (FP) PO SCH ×4 (00:54→18:14)
[2022-09-18] MEDS: LORazepam 1 MG TABLET PO SCH ×3 (00:54→12:43)
[2022-09-18] MEDS: HALOPERIDOL LACTATE 5 MG/ML IM PRN ×2 (04:32→21:22)
[2022-09-18] MEDS: SODIUM BICARBONATE 650 MG TABLET PO SCH ×3 (06:15→21:21)
[2022-09-18] MEDS: DOCUSATE SODIUM 100 MG CAPSULE (FP) PO SCH ×3 (06:16→21:21)
[2022-09-18] MEDS: OLANZapine 5 MG TABLET PO SCH ×2 (09:38→21:21)
[2022-09-18] MEDS: FOLIC ACID 1 MG TABLET (FP) PO SCH (09:38)
[2022-09-18] MEDS: amLODIPine BESYLATE 10 MG TABLET (FP) PO SCH (09:38)
[2022-09-18] MEDS: POLYETHYLENE GLYCOL (HEALTHYLAX) 3350 17 GM PACKET PO SCH (09:39)
[2022-09-18] MEDS: CARVEDILOL 25 MG TABLET (FP) PO SCH ×2 (09:39→21:21)
[2022-09-18] MEDS: TAMSULOSIN HCL 0.4 MG CAP PO SCH ×2 (09:39→21:20)
[2022-09-18] MEDS: MULTIVITAMINS (DAILY MVI) TABLET (FP) PO SCH (09:39)
[2022-09-18] MEDS: SODIUM ZIRCONIUM CYCLOSILICATE (LOKELMA) 10 GM PACKET PO SCH (09:39)
[2022-09-18] MEDS: LIDOCAINE 5% TOPICAL PATCH TP SCH (09:39)
[2022-09-18] MEDS: ERTAPENEM SODIUM 0.5 GM in SODIUM CHLORIDE 50 ML IVPB SCH (09:40)
[2022-09-18] MEDS: levETIRAcetam 500 MG TABLET (FP) PO SCH ×2 (09:40→21:22)
[2022-09-18] MEDS: FERROUS SO4 325 MG TABLET (FP) PO SCH ×3 (09:47→18:14)
[2022-09-18 10:22] LABS: BASO % 0.6 % (0-2.0); EOS % 4.6 % (0-4.5); HEMATOCRIT 22.4 % (35.4-49); HEMOGLOBIN 7.4 GM/dL (11.7-16.9); LYMPH % 26.3 % (8-40); MCH 27.9 pg (25.7-33.7); MCHC 32.8 g/dl (32.0-35.9); MEAN CELL VOLUME 84.9 fl (80-96); MEAN PLT VOLUME 7.6 fl (7.5-11.1); MONO % 7.8 % (3.8-10.2); NEUT % 60.7 % (42.8-82.8); PLATELET COUNT 223 10^3/uL (134-434); RBC 2.64 M/mm3 (4.00-5.60); RDW 15.5 % (11.9-15.9); WHITE BLOOD COUNT 6.4 K/mm3 (4.0-10.0)
[2022-09-18 11:31] LABS: BLOOD UREA NITROGEN 61.3 mg/dL (7-18)
[2022-09-18 11:33] LABS: CALCIUM 8.8 mg/dL (8.5-10.1)
[2022-09-18 11:34] LABS: CREATININE 2.9 mg/dL (0.55-1.3)
[2022-09-18] MEDS: SODIUM CHLORIDE 0.45% 1,000 ML IV SCH (12:46)
[2022-09-18] MEDS: QUEtiapine FUMARATE 50 MG TABLET PO SCH (21:21)
[2022-09-18] MEDS: LORazepam 1 MG TABLET PO PRN (21:21)
[2022-09-18] MEDS: ATORVASTATIN CA 20 MG TABLET (FP) PO SCH (21:21)
[2022-09-18] MEDS: LIDOCAINE PATCH REMOVAL MC SCH (21:22)
[2022-09-19] MEDS: hydrALAZINE HCL 50 MG TABLET (FP) PO SCH ×5 (01:01→17:30)
[2022-09-19] MEDS: DOCUSATE SODIUM 100 MG CAPSULE (FP) PO SCH ×3 (05:04→21:51)
[2022-09-19] MEDS: SODIUM BICARBONATE 650 MG TABLET PO SCH ×3 (05:04→21:50)
[2022-09-19] MEDS: TAMSULOSIN HCL 0.4 MG CAP PO SCH ×2 (09:01→21:51)
[2022-09-19] MEDS: CARVEDILOL 25 MG TABLET (FP) PO SCH ×2 (10:01→21:50)
[2022-09-19] MEDS: FERROUS SO4 325 MG TABLET (FP) PO SCH ×3 (10:01→17:29)
[2022-09-19] MEDS: OLANZapine 5 MG TABLET PO SCH ×2 (10:01→21:50)
[2022-09-19] MEDS: amLODIPine BESYLATE 10 MG TABLET (FP) PO SCH (10:01)
[2022-09-19] MEDS: MULTIVITAMINS (DAILY MVI) TABLET (FP) PO SCH (10:02)
[2022-09-19] MEDS: levETIRAcetam 500 MG TABLET (FP) PO SCH ×2 (10:02→21:51)
[2022-09-19] MEDS: FOLIC ACID 1 MG TABLET (FP) PO SCH (10:02)
[2022-09-19] MEDS: LIDOCAINE 5% TOPICAL PATCH TP SCH (10:02)
[2022-09-19] MEDS: SODIUM ZIRCONIUM CYCLOSILICATE (LOKELMA) 10 GM PACKET PO SCH (10:02)
[2022-09-19] MEDS: ERTAPENEM SODIUM 0.5 GM in SODIUM CHLORIDE 50 ML IVPB SCH (10:05)
[2022-09-19] MEDS: POLYETHYLENE GLYCOL (HEALTHYLAX) 3350 17 GM PACKET PO SCH (10:05)
[2022-09-19] MEDS: LORazepam 1 MG TABLET PO PRN (12:48)
[2022-09-19] MEDS: HALOPERIDOL LACTATE 5 MG/ML IM PRN (16:13)
[2022-09-19] MEDS: QUEtiapine FUMARATE 50 MG TABLET PO SCH (21:50)
[2022-09-19] MEDS: LIDOCAINE PATCH REMOVAL MC SCH (21:51)
[2022-09-19] MEDS: ATORVASTATIN CA 20 MG TABLET (FP) PO SCH (21:56)
[2022-09-20] MEDS: hydrALAZINE HCL 50 MG TABLET (FP) PO SCH ×4 (00:42→18:00)
[2022-09-20] MEDS: SODIUM BICARBONATE 650 MG TABLET PO SCH ×3 (05:35→21:36)
[2022-09-20] MEDS: DOCUSATE SODIUM 100 MG CAPSULE (FP) PO SCH ×3 (05:35→21:36)
[2022-09-20] MEDS: FOLIC ACID 1 MG TABLET (FP) PO SCH (09:45)
[2022-09-20] MEDS: MULTIVITAMINS (DAILY MVI) TABLET (FP) PO SCH (09:45)
[2022-09-20] MEDS: CARVEDILOL 25 MG TABLET (FP) PO SCH ×2 (09:45→21:36)
[2022-09-20] MEDS: amLODIPine BESYLATE 10 MG TABLET (FP) PO SCH (09:45)
[2022-09-20] MEDS: OLANZapine 5 MG TABLET PO SCH ×2 (09:45→21:37)
[2022-09-20] MEDS: SODIUM ZIRCONIUM CYCLOSILICATE (LOKELMA) 10 GM PACKET PO SCH (09:46)
[2022-09-20] MEDS: POLYETHYLENE GLYCOL (HEALTHYLAX) 3350 17 GM PACKET PO SCH (09:46)
[2022-09-20] MEDS: TAMSULOSIN HCL 0.4 MG CAP PO SCH ×2 (09:48→21:36)
[2022-09-20] MEDS: levETIRAcetam 500 MG TABLET (FP) PO SCH ×2 (09:49→21:36)
[2022-09-20] MEDS: LIDOCAINE 5% TOPICAL PATCH TP SCH (09:49)
[2022-09-20] MEDS: FERROUS SO4 325 MG TABLET (FP) PO SCH ×3 (09:49→18:00)
[2022-09-20 10:34] LABS: BLOOD UREA NITROGEN 55.5 mg/dL (7-18); CALCIUM 9.3 mg/dL (8.5-10.1)
[2022-09-20 10:38] LABS: CREATININE 2.9 mg/dL (0.55-1.3)
[2022-09-20] MEDS: LORazepam 1 MG TABLET PO PRN (15:22)
[2022-09-20] MEDS: QUEtiapine FUMARATE 50 MG TABLET PO SCH (21:36)
[2022-09-20] MEDS: ATORVASTATIN CA 20 MG TABLET (FP) PO SCH (21:37)
[2022-09-20] MEDS: LIDOCAINE PATCH REMOVAL MC SCH (21:37)
[2022-09-21] MEDS: hydrALAZINE HCL 50 MG TABLET (FP) PO SCH ×4 (00:18→17:22)
[2022-09-21] MEDS: SODIUM BICARBONATE 650 MG TABLET PO SCH ×3 (05:56→22:17)
[2022-09-21] MEDS: DOCUSATE SODIUM 100 MG CAPSULE (FP) PO SCH ×3 (05:57→22:17)
[2022-09-21] MEDS: POLYETHYLENE GLYCOL (HEALTHYLAX) 3350 17 GM PACKET PO SCH (10:26)
[2022-09-21] MEDS: FOLIC ACID 1 MG TABLET (FP) PO SCH (10:26)
[2022-09-21] MEDS: TAMSULOSIN HCL 0.4 MG CAP PO SCH ×2 (10:26→22:17)
[2022-09-21] MEDS: levETIRAcetam 500 MG TABLET (FP) PO SCH ×2 (10:26→22:17)
[2022-09-21] MEDS: MULTIVITAMINS (DAILY MVI) TABLET (FP) PO SCH (10:26)
[2022-09-21] MEDS: FERROUS SO4 325 MG TABLET (FP) PO SCH ×3 (10:26→17:22)
[2022-09-21] MEDS: CARVEDILOL 25 MG TABLET (FP) PO SCH ×2 (10:26→22:17)
[2022-09-21] MEDS: OLANZapine 5 MG TABLET PO SCH ×2 (10:26→22:17)
[2022-09-21] MEDS: amLODIPine BESYLATE 10 MG TABLET (FP) PO SCH (10:26)
[2022-09-21] MEDS: LIDOCAINE 5% TOPICAL PATCH TP SCH (10:27)
[2022-09-21] MEDS: SODIUM ZIRCONIUM CYCLOSILICATE (LOKELMA) 10 GM PACKET PO SCH (10:27)
[2022-09-21 11:11] LABS: EOS % 3.7 % (0-4.5); HEMATOCRIT 24.4 % (35.4-49); LYMPH % 24.3 % (8-40); MCH 27.7 pg (25.7-33.7); MCHC 32.8 g/dl (32.0-35.9); MEAN CELL VOLUME 84.7 fl (80-96); MEAN PLT VOLUME 7.3 fl (7.5-11.1); MONO % 7.2 % (3.8-10.2); NEUT % 63.8 % (42.8-82.8); PLATELET COUNT 334 10^3/uL (134-434); RBC 2.88 M/mm3 (4.00-5.60); RDW 15.4 % (11.9-15.9); WHITE BLOOD COUNT 7.5 K/mm3 (4.0-10.0)
[2022-09-21 11:18] LABS: CALCIUM 8.9 mg/dL (8.5-10.1)
[2022-09-21 11:19] LABS: BLOOD UREA NITROGEN 55.1 mg/dL (7-18)
[2022-09-21 11:22] LABS: CREATININE 2.9 mg/dL (0.55-1.3)
[2022-09-21] MEDS: QUEtiapine FUMARATE 50 MG TABLET PO SCH (22:17)
[2022-09-21] MEDS: ATORVASTATIN CA 20 MG TABLET (FP) PO SCH (22:17)
[2022-09-21] MEDS: LIDOCAINE PATCH REMOVAL MC SCH (22:20)
[2022-09-22] MEDS: hydrALAZINE HCL 50 MG TABLET (FP) PO SCH ×5 (00:11→23:00)
[2022-09-22] MEDS: DOCUSATE SODIUM 100 MG CAPSULE (FP) PO SCH ×3 (06:30→22:50)
[2022-09-22] MEDS: SODIUM BICARBONATE 650 MG TABLET PO SCH ×3 (06:30→22:53)
[2022-09-22] MEDS: OLANZapine 5 MG TABLET PO SCH ×2 (09:42→22:51)
[2022-09-22] MEDS: amLODIPine BESYLATE 10 MG TABLET (FP) PO SCH (09:43)
[2022-09-22] MEDS: FERROUS SO4 325 MG TABLET (FP) PO SCH ×3 (09:43→17:32)
[2022-09-22] MEDS: FOLIC ACID 1 MG TABLET (FP) PO SCH (09:43)
[2022-09-22] MEDS: levETIRAcetam 500 MG TABLET (FP) PO SCH ×2 (09:43→22:53)
[2022-09-22] MEDS: SODIUM ZIRCONIUM CYCLOSILICATE (LOKELMA) 10 GM PACKET PO SCH (09:44)
[2022-09-22] MEDS: TAMSULOSIN HCL 0.4 MG CAP PO SCH ×2 (09:44→22:54)
[2022-09-22] MEDS: MULTIVITAMINS (DAILY MVI) TABLET (FP) PO SCH (09:44)
[2022-09-22] MEDS: POLYETHYLENE GLYCOL (HEALTHYLAX) 3350 17 GM PACKET PO SCH (09:45)
[2022-09-22] MEDS: LIDOCAINE 5% TOPICAL PATCH TP SCH (09:45)
[2022-09-22] MEDS: HALOPERIDOL LACTATE 5 MG/ML IM PRN (09:46)
[2022-09-22] MEDS: CARVEDILOL 25 MG TABLET (FP) PO SCH ×2 (09:57→22:53)
[2022-09-22 10:11] LABS: BASO % 0.6 % (0-2.0); EOS % 3.5 % (0-4.5); HEMATOCRIT 23.2 % (35.4-49); HEMOGLOBIN 7.8 GM/dL (11.7-16.9); LYMPH % 20.7 % (8-40); MCH 28.6 pg (25.7-33.7); MCHC 33.7 g/dl (32.0-35.9); MEAN CELL VOLUME 84.8 fl (80-96); MEAN PLT VOLUME 6.4 fl (7.5-11.1); MONO % 7.2 % (3.8-10.2); PLATELET COUNT 336 10^3/uL (134-434); RBC 2.73 M/mm3 (4.00-5.60); RDW 14.8 % (11.9-15.9); WHITE BLOOD COUNT 7.6 K/mm3 (4.0-10.0)
[2022-09-22 11:13] LABS: BLOOD UREA NITROGEN 54.5 mg/dL (7-18); CALCIUM 9.1 mg/dL (8.5-10.1)
[2022-09-22 11:16] LABS: CREATININE 2.8 mg/dL (0.55-1.3)
[2022-09-22] MEDS ORDERED: LORazepam 1 MG TABLET PO PRN (12:16)
[2022-09-22] MEDS: QUEtiapine FUMARATE 50 MG TABLET PO SCH (22:52)
[2022-09-22] MEDS: ATORVASTATIN CA 20 MG TABLET (FP) PO SCH (22:53)
[2022-09-22] MEDS: LIDOCAINE PATCH REMOVAL MC SCH (23:02)
[2022-09-23] MEDS: SODIUM BICARBONATE 650 MG TABLET PO SCH ×3 (07:09→22:56)
[2022-09-23] MEDS: hydrALAZINE HCL 50 MG TABLET (FP) PO SCH ×3 (07:10→17:18)
[2022-09-23] MEDS: DOCUSATE SODIUM 100 MG CAPSULE (FP) PO SCH ×4 (07:10→22:56)
[2022-09-23] MEDS: FERROUS SO4 325 MG TABLET (FP) PO SCH ×3 (10:06→17:18)
[2022-09-23] MEDS: FOLIC ACID 1 MG TABLET (FP) PO SCH (10:06)
[2022-09-23] MEDS: MULTIVITAMINS (DAILY MVI) TABLET (FP) PO SCH (10:06)
[2022-09-23] MEDS: OLANZapine 5 MG TABLET PO SCH ×2 (10:06→22:56)
[2022-09-23] MEDS: levETIRAcetam 500 MG TABLET (FP) PO SCH ×2 (10:06→22:56)
[2022-09-23] MEDS: amLODIPine BESYLATE 10 MG TABLET (FP) PO SCH (10:06)
[2022-09-23] MEDS: CARVEDILOL 25 MG TABLET (FP) PO SCH ×2 (10:06→22:57)
[2022-09-23] MEDS: TAMSULOSIN HCL 0.4 MG CAP PO SCH ×2 (10:07→22:56)
[2022-09-23] MEDS: POLYETHYLENE GLYCOL (HEALTHYLAX) 3350 17 GM PACKET PO SCH (10:07)
[2022-09-23] MEDS: SODIUM ZIRCONIUM CYCLOSILICATE (LOKELMA) 10 GM PACKET PO SCH (10:07)
[2022-09-23] MEDS: LIDOCAINE 5% TOPICAL PATCH TP SCH (10:07)
[2022-09-23 10:29] LABS: BASO % 0.8 % (0-2.0); EOS % 3.6 % (0-4.5); HEMATOCRIT 23.7 % (35.4-49); HEMOGLOBIN 7.7 GM/dL (11.7-16.9); LYMPH % 22.2 % (8-40); MCH 27.7 pg (25.7-33.7); MCHC 32.6 g/dl (32.0-35.9); MEAN CELL VOLUME 84.8 fl (80-96); MEAN PLT VOLUME 6.8 fl (7.5-11.1); MONO % 7.7 % (3.8-10.2); NEUT % 65.7 % (42.8-82.8); PLATELET COUNT 348 10^3/uL (134-434); RBC 2.79 M/mm3 (4.00-5.60); RDW 15.3 % (11.9-15.9); WHITE BLOOD COUNT 7.2 K/mm3 (4.0-10.0)
[2022-09-23] MEDS ORDERED: LORazepam 1 MG TABLET PO PRN (12:32)
[2022-09-23] MEDS: ATORVASTATIN CA 20 MG TABLET (FP) PO SCH (22:55)
[2022-09-23] MEDS: QUEtiapine FUMARATE 50 MG TABLET PO SCH (22:56)
[2022-09-23] MEDS: LIDOCAINE PATCH REMOVAL MC SCH (22:57)
[2022-09-24] MEDS: hydrALAZINE HCL 50 MG TABLET (FP) PO SCH ×5 (01:10→17:09)
[2022-09-24] MEDS: SODIUM BICARBONATE 650 MG TABLET PO SCH ×3 (07:04→22:19)
[2022-09-24] MEDS: DOCUSATE SODIUM 100 MG CAPSULE (FP) PO SCH ×3 (07:04→22:19)
[2022-09-24] MEDS: TAMSULOSIN HCL 0.4 MG CAP PO SCH ×2 (09:23→22:19)
[2022-09-24] MEDS: amLODIPine BESYLATE 10 MG TABLET (FP) PO SCH (09:23)
[2022-09-24] MEDS: OLANZapine 5 MG TABLET PO SCH ×2 (09:23→22:18)
[2022-09-24] MEDS: CARVEDILOL 25 MG TABLET (FP) PO SCH ×2 (09:23→22:18)
[2022-09-24] MEDS: levETIRAcetam 500 MG TABLET (FP) PO SCH ×2 (09:23→22:19)
[2022-09-24] MEDS: FERROUS SO4 325 MG TABLET (FP) PO SCH ×3 (09:23→17:09)
[2022-09-24] MEDS: MULTIVITAMINS (DAILY MVI) TABLET (FP) PO SCH (09:23)
[2022-09-24] MEDS: FOLIC ACID 1 MG TABLET (FP) PO SCH (09:24)
[2022-09-24] MEDS: POLYETHYLENE GLYCOL (HEALTHYLAX) 3350 17 GM PACKET PO SCH (09:24)
[2022-09-24] MEDS: SODIUM ZIRCONIUM CYCLOSILICATE (LOKELMA) 10 GM PACKET PO SCH ×2 (09:24→13:27)
[2022-09-24] MEDS: LIDOCAINE 5% TOPICAL PATCH TP SCH (09:24)
[2022-09-24 10:30] LABS: CALCIUM 9.1 mg/dL (8.5-10.1)
[2022-09-24 10:31] LABS: ALBUMIN 2.9 g/dl (3.4-5.0); BLOOD UREA NITROGEN 58.7 mg/dL (7-18)
[2022-09-24 10:34] LABS: CREATININE 3.1 mg/dL (0.55-1.3)
[2022-09-24 10:36] LABS: BILIRUBIN,TOTAL 0.2 mg/dL (0.2-1); TOT PROT 7.1 g/dl (6.4-8.2)
[2022-09-24] MEDS: QUEtiapine FUMARATE 50 MG TABLET PO SCH (22:18)
[2022-09-24] MEDS: ATORVASTATIN CA 20 MG TABLET (FP) PO SCH (22:19)
[2022-09-24] MEDS: LIDOCAINE PATCH REMOVAL MC SCH (22:19)
[2022-09-25] MEDS: hydrALAZINE HCL 50 MG TABLET (FP) PO SCH ×4 (01:18→17:53)
[2022-09-25] MEDS: SODIUM BICARBONATE 650 MG TABLET PO SCH ×3 (05:58→21:20)
[2022-09-25] MEDS: DOCUSATE SODIUM 100 MG CAPSULE (FP) PO SCH ×3 (05:58→21:20)
[2022-09-25] MEDS: LIDOCAINE 5% TOPICAL PATCH TP SCH (09:54)
[2022-09-25] MEDS: SODIUM ZIRCONIUM CYCLOSILICATE (LOKELMA) 10 GM PACKET PO SCH (09:54)
[2022-09-25] MEDS: levETIRAcetam 500 MG TABLET (FP) PO SCH ×2 (09:55→21:19)
[2022-09-25] MEDS: POLYETHYLENE GLYCOL (HEALTHYLAX) 3350 17 GM PACKET PO SCH (09:55)
[2022-09-25] MEDS: MULTIVITAMINS (DAILY MVI) TABLET (FP) PO SCH (09:55)
[2022-09-25] MEDS: OLANZapine 5 MG TABLET PO SCH ×2 (09:55→21:22)
[2022-09-25] MEDS: FERROUS SO4 325 MG TABLET (FP) PO SCH ×3 (09:55→17:53)
[2022-09-25] MEDS: FOLIC ACID 1 MG TABLET (FP) PO SCH (09:55)
[2022-09-25] MEDS: amLODIPine BESYLATE 10 MG TABLET (FP) PO SCH (09:55)
[2022-09-25] MEDS: TAMSULOSIN HCL 0.4 MG CAP PO SCH ×2 (09:55→21:19)
[2022-09-25] MEDS: CARVEDILOL 25 MG TABLET (FP) PO SCH ×2 (09:55→21:20)
[2022-09-25 11:06] LABS: CALCIUM 8.9 mg/dL (8.5-10.1)
[2022-09-25 11:08] LABS: ALBUMIN 2.9 g/dl (3.4-5.0); BLOOD UREA NITROGEN 60.9 mg/dL (7-18)
[2022-09-25 11:09] LABS: BILIRUBIN,TOTAL 0.2 mg/dL (0.2-1)
[2022-09-25 11:10] LABS: TOT PROT 7.1 g/dl (6.4-8.2)
[2022-09-25] MEDS: ATORVASTATIN CA 20 MG TABLET (FP) PO SCH (21:19)
[2022-09-25] MEDS: QUEtiapine FUMARATE 50 MG TABLET PO SCH (21:21)
[2022-09-25] MEDS: LIDOCAINE PATCH REMOVAL MC SCH (21:50)
[2022-09-26] MEDS: hydrALAZINE HCL 50 MG TABLET (FP) PO SCH ×5 (00:59→23:48)
[2022-09-26] MEDS: SODIUM BICARBONATE 650 MG TABLET PO SCH ×3 (06:43→22:26)
[2022-09-26] MEDS: DOCUSATE SODIUM 100 MG CAPSULE (FP) PO SCH ×3 (06:43→22:27)
[2022-09-26] MEDS: SODIUM ZIRCONIUM CYCLOSILICATE (LOKELMA) 10 GM PACKET PO SCH (10:17)
[2022-09-26] MEDS: POLYETHYLENE GLYCOL (HEALTHYLAX) 3350 17 GM PACKET PO SCH (10:17)
[2022-09-26] MEDS: LIDOCAINE 5% TOPICAL PATCH TP SCH (10:17)
[2022-09-26] MEDS: OLANZapine 5 MG TABLET PO SCH ×2 (10:18→22:28)
[2022-09-26] MEDS: levETIRAcetam 500 MG TABLET (FP) PO SCH ×2 (10:18→22:26)
[2022-09-26] MEDS: CARVEDILOL 25 MG TABLET (FP) PO SCH ×2 (10:18→22:26)
[2022-09-26] MEDS: TAMSULOSIN HCL 0.4 MG CAP PO SCH ×2 (10:18→22:27)
[2022-09-26] MEDS: FERROUS SO4 325 MG TABLET (FP) PO SCH ×3 (10:18→17:59)
[2022-09-26] MEDS: amLODIPine BESYLATE 10 MG TABLET (FP) PO SCH (10:18)
[2022-09-26] MEDS: MULTIVITAMINS (DAILY MVI) TABLET (FP) PO SCH (10:18)
[2022-09-26] MEDS: FOLIC ACID 1 MG TABLET (FP) PO SCH (10:18)
[2022-09-26 12:59] LABS: ALBUMIN 2.8 g/dl (3.4-5.0); BLOOD UREA NITROGEN 64.4 mg/dL (7-18); CALCIUM 8.6 mg/dL (8.5-10.1)
[2022-09-26 13:02] LABS: CREATININE 2.9 mg/dL (0.55-1.3)
[2022-09-26 13:04] LABS: BILIRUBIN,TOTAL 0.1 mg/dL (0.2-1)
[2022-09-26] MEDS: ATORVASTATIN CA 20 MG TABLET (FP) PO SCH (22:26)
[2022-09-26] MEDS: QUEtiapine FUMARATE 50 MG TABLET PO SCH (22:27)
[2022-09-26] MEDS: LIDOCAINE PATCH REMOVAL MC SCH (22:32)
[2022-09-27] MEDS: DOCUSATE SODIUM 100 MG CAPSULE (FP) PO SCH ×3 (07:15→22:01)
[2022-09-27] MEDS: hydrALAZINE HCL 50 MG TABLET (FP) PO SCH ×4 (07:15→23:58)
[2022-09-27] MEDS: SODIUM BICARBONATE 650 MG TABLET PO SCH ×3 (07:15→22:01)
[2022-09-27] MEDS ORDERED: INSULIN (NOVOLOG) ASPART 100 UNITS/ML 10ML VIAL ONE (07:40)
[2022-09-27] MEDS: OLANZapine 5 MG TABLET PO SCH ×2 (10:03→22:01)
[2022-09-27] MEDS: CARVEDILOL 25 MG TABLET (FP) PO SCH ×2 (10:07→22:01)
[2022-09-27] MEDS: levETIRAcetam 500 MG TABLET (FP) PO SCH ×2 (10:07→22:01)
[2022-09-27] MEDS: MULTIVITAMINS (DAILY MVI) TABLET (FP) PO SCH (10:07)
[2022-09-27] MEDS: FOLIC ACID 1 MG TABLET (FP) PO SCH (10:07)
[2022-09-27] MEDS: FERROUS SO4 325 MG TABLET (FP) PO SCH ×3 (10:07→18:22)
[2022-09-27] MEDS: LIDOCAINE 5% TOPICAL PATCH TP SCH (10:08)
[2022-09-27] MEDS: SODIUM ZIRCONIUM CYCLOSILICATE (LOKELMA) 10 GM PACKET PO SCH (10:08)
[2022-09-27] MEDS: TAMSULOSIN HCL 0.4 MG CAP PO SCH ×2 (10:08→22:01)
[2022-09-27] MEDS: amLODIPine BESYLATE 10 MG TABLET (FP) PO SCH (10:08)
[2022-09-27] MEDS: POLYETHYLENE GLYCOL (HEALTHYLAX) 3350 17 GM PACKET PO SCH (10:08)
[2022-09-27] MEDS: ACETAMINOPHEN 325 MG TABLET (FP) PO PRN (22:00)
[2022-09-27] MEDS: ATORVASTATIN CA 20 MG TABLET (FP) PO SCH (22:01)
[2022-09-27] MEDS: QUEtiapine FUMARATE 50 MG TABLET PO SCH (22:01)
[2022-09-27] MEDS: LIDOCAINE PATCH REMOVAL MC SCH (22:01)
[2022-09-27 23:10] LABS: HEMATOCRIT 20.7 % (35.4-49); MCH 27.4 pg (25.7-33.7); MCHC 32.5 g/dl (32.0-35.9); MEAN CELL VOLUME 84.4 fl (80-96); MEAN PLT VOLUME 6.7 fl (7.5-11.1); PLATELET COUNT 262 10^3/uL (134-434); RBC 2.45 M/mm3 (4.00-5.60); RDW 15.5 % (11.9-15.9); WHITE BLOOD COUNT 6.1 K/mm3 (4.0-10.0)
[2022-09-27 23:12] LABS: HEMOGLOBIN 6.7 GM/dL (11.7-16.9)
[2022-09-27 23:16] LABS: EPI CELLS 7 /uL (0-25.1); HYALINE CASTS 0 /uL (0-3.1); PH,URINE 5.5 (5.0-8.0); URINE APPEARANCE CLEAR; URINE BACTERIA 2002 /uL (0-1359); URINE BILIRUBIN NEGATIVE (NEGATIVE); URINE COLOR YELLOW; URINE GLUCOSE (UA) NEGATIVE (NEGATIVE); URINE KETONE NEGATIVE (NEGATIVE); URINE LEUK ESTERASE TRACE (NEGATIVE); URINE NITRITE NEGATIVE (NEGATIVE); URINE PROTEIN 3+ (NEGATIVE); URINE RBC 1301 /uL (0-23.9); URINE UROBILINOGEN 0.2 mg/dL (0.2-1.0); URINE WBC 260 /uL (0-25.8)
[2022-09-27 23:30] LABS: ALBUMIN 2.6 g/dl (3.4-5.0); BLOOD UREA NITROGEN 60.3 mg/dL (7-18); CALCIUM 8.4 mg/dL (8.5-10.1)
[2022-09-27 23:35] LABS: BILIRUBIN,TOTAL 0.1 mg/dL (0.2-1); TOT PROT 6.7 g/dl (6.4-8.2)
[2022-09-28] MEDS: SODIUM BICARBONATE 650 MG TABLET PO SCH ×3 (05:45→21:57)
[2022-09-28] MEDS: hydrALAZINE HCL 50 MG TABLET (FP) PO SCH ×3 (05:45→17:36)
[2022-09-28] MEDS: DOCUSATE SODIUM 100 MG CAPSULE (FP) PO SCH ×3 (05:45→21:58)
[2022-09-28] MEDS: ACETAMINOPHEN 325 MG TABLET (FP) PO PRN (06:00)
[2022-09-28] MEDS: TAMSULOSIN HCL 0.4 MG CAP PO SCH ×2 (08:11→21:57)
[2022-09-28] MEDS: FERROUS SO4 325 MG TABLET (FP) PO SCH ×3 (08:11→17:35)
[2022-09-28] MEDS: SODIUM ZIRCONIUM CYCLOSILICATE (LOKELMA) 10 GM PACKET PO SCH (09:20)
[2022-09-28] MEDS: OLANZapine 5 MG TABLET PO SCH ×2 (09:20→21:57)
[2022-09-28] MEDS: LIDOCAINE 5% TOPICAL PATCH TP SCH (09:21)
[2022-09-28] MEDS: MULTIVITAMINS (DAILY MVI) TABLET (FP) PO SCH (09:21)
[2022-09-28] MEDS: amLODIPine BESYLATE 10 MG TABLET (FP) PO SCH (09:21)
[2022-09-28] MEDS: CARVEDILOL 25 MG TABLET (FP) PO SCH ×2 (09:21→21:58)
[2022-09-28] MEDS: levETIRAcetam 500 MG TABLET (FP) PO SCH ×2 (09:21→21:58)
[2022-09-28] MEDS: POLYETHYLENE GLYCOL (HEALTHYLAX) 3350 17 GM PACKET PO SCH (09:21)
[2022-09-28] MEDS: FOLIC ACID 1 MG TABLET (FP) PO SCH (09:21)
[2022-09-28] MEDS: HALOPERIDOL LACTATE 5 MG/ML IM PRN (11:38)
[2022-09-28] MEDS ORDERED: EPOETIN ALFA-EPBX 10,000 UNIT/ML VIAL SQ ONE (16:58)
[2022-09-28] MEDS: ERTAPENEM SODIUM 1 GM in SODIUM CHLORIDE 50 ML IVPB SCH (17:20)
[2022-09-28] MEDS: ACETAMINOPHEN 500 MG TABLET (FP) PO PRN (20:19)
[2022-09-28] MEDS: QUEtiapine FUMARATE 50 MG TABLET PO SCH (21:57)
[2022-09-28] MEDS: ATORVASTATIN CA 20 MG TABLET (FP) PO SCH (21:58)
[2022-09-28] MEDS: LIDOCAINE PATCH REMOVAL MC SCH (22:03)
[2022-09-29] MEDS: hydrALAZINE HCL 50 MG TABLET (FP) PO SCH ×4 (00:13→17:14)
[2022-09-29] MEDS: ACETAMINOPHEN 500 MG TABLET (FP) PO PRN (02:59)
[2022-09-29] MEDS: SODIUM BICARBONATE 650 MG TABLET PO SCH ×3 (06:43→22:08)
[2022-09-29] MEDS: DOCUSATE SODIUM 100 MG CAPSULE (FP) PO SCH ×3 (06:43→22:08)
[2022-09-29] MEDS: LIDOCAINE 5% TOPICAL PATCH TP SCH (11:21)
[2022-09-29] MEDS: TAMSULOSIN HCL 0.4 MG CAP PO SCH ×2 (11:22→22:08)
[2022-09-29] MEDS: OLANZapine 5 MG TABLET PO SCH ×2 (11:22→22:08)
[2022-09-29] MEDS: FOLIC ACID 1 MG TABLET (FP) PO SCH (11:22)
[2022-09-29] MEDS: levETIRAcetam 500 MG TABLET (FP) PO SCH ×2 (11:22→22:08)
[2022-09-29] MEDS: POLYETHYLENE GLYCOL (HEALTHYLAX) 3350 17 GM PACKET PO SCH (11:22)
[2022-09-29] MEDS: CARVEDILOL 25 MG TABLET (FP) PO SCH ×2 (11:23→22:08)
[2022-09-29] MEDS: FERROUS SO4 325 MG TABLET (FP) PO SCH ×3 (11:23→17:14)
[2022-09-29] MEDS: ERTAPENEM SODIUM 1 GM in SODIUM CHLORIDE 50 ML IVPB SCH (11:23)
[2022-09-29] MEDS: amLODIPine BESYLATE 10 MG TABLET (FP) PO SCH (11:23)
[2022-09-29] MEDS: MULTIVITAMINS (DAILY MVI) TABLET (FP) PO SCH (11:23)
[2022-09-29] MEDS: SODIUM ZIRCONIUM CYCLOSILICATE (LOKELMA) 10 GM PACKET PO SCH (11:24)
[2022-09-29 11:34] LABS: ALBUMIN 2.8 g/dl (3.4-5.0); BLOOD UREA NITROGEN 68.7 mg/dL (7-18); CALCIUM 8.6 mg/dL (8.5-10.1)
[2022-09-29 11:37] LABS: CREATININE 3.6 mg/dL (0.55-1.3)
[2022-09-29 11:40] LABS: BILIRUBIN,TOTAL 0.4 mg/dL (0.2-1)
[2022-09-29] MEDS ORDERED: REMDESIVIR 200 MG in SODIUM CHLORIDE 250 ML IVPB ONE (13:00)
[2022-09-29 13:32] LABS: BASO % 1.2 % (0-2.0); EOS % 0.9 % (0-4.5); HEMATOCRIT 24.9 % (35.4-49); LYMPH % 19.8 % (8-40); MCH 27.5 pg (25.7-33.7); MCHC 32.4 g/dl (32.0-35.9); MEAN CELL VOLUME 84.8 fl (80-96); MEAN PLT VOLUME 7.5 fl (7.5-11.1); MONO % 11.6 % (3.8-10.2); NEUT % 66.5 % (42.8-82.8); PLATELET COUNT 248 10^3/uL (134-434); RBC 2.93 M/mm3 (4.00-5.60); RDW 15.2 % (11.9-15.9); WHITE BLOOD COUNT 9.4 K/mm3 (4.0-10.0)
[2022-09-29] MEDS: SODIUM CHLORIDE 0.45% 1,000 ML IV SCH (15:44)
[2022-09-29] MEDS: QUEtiapine FUMARATE 50 MG TABLET PO SCH (22:08)
[2022-09-29] MEDS: LIDOCAINE PATCH REMOVAL MC SCH (22:08)
[2022-09-29] MEDS: ATORVASTATIN CA 20 MG TABLET (FP) PO SCH (22:08)
[2022-09-30] MEDS: hydrALAZINE HCL 50 MG TABLET (FP) PO SCH ×4 (00:24→18:07)
[2022-09-30] MEDS: SODIUM BICARBONATE 650 MG TABLET PO SCH ×3 (06:40→22:42)
[2022-09-30] MEDS: DOCUSATE SODIUM 100 MG CAPSULE (FP) PO SCH ×3 (06:40→22:41)
[2022-09-30 08:42] LABS: BASO % 0.9 % (0-2.0); EOS % 1.4 % (0-4.5); HEMOGLOBIN 7.3 GM/dL (11.7-16.9); LYMPH % 20.6 % (8-40); MCH 28.2 pg (25.7-33.7); MCHC 33.4 g/dl (32.0-35.9); MEAN CELL VOLUME 84.6 fl (80-96); MEAN PLT VOLUME 7.4 fl (7.5-11.1); NEUT % 66.1 % (42.8-82.8); PLATELET COUNT 211 10^3/uL (134-434); RDW 15.7 % (11.9-15.9); WHITE BLOOD COUNT 7.4 K/mm3 (4.0-10.0)
[2022-09-30 09:05] LABS: ALBUMIN 2.7 g/dl (3.4-5.0); CALCIUM 8.4 mg/dL (8.5-10.1)
[2022-09-30 09:06] LABS: BLOOD UREA NITROGEN 67.5 mg/dL (7-18)
[2022-09-30 09:08] LABS: CREATININE 3.3 mg/dL (0.55-1.3)
[2022-09-30 09:10] LABS: BILIRUBIN,TOTAL 0.1 mg/dL (0.2-1)
[2022-09-30] MEDS: amLODIPine BESYLATE 10 MG TABLET (FP) PO SCH (09:46)
[2022-09-30] MEDS: levETIRAcetam 500 MG TABLET (FP) PO SCH ×2 (09:46→22:44)
[2022-09-30] MEDS: CARVEDILOL 25 MG TABLET (FP) PO SCH ×2 (09:46→22:42)
[2022-09-30] MEDS: TAMSULOSIN HCL 0.4 MG CAP PO SCH ×2 (09:46→22:43)
[2022-09-30] MEDS: POLYETHYLENE GLYCOL (HEALTHYLAX) 3350 17 GM PACKET PO SCH (09:47)
[2022-09-30] MEDS: MULTIVITAMINS (DAILY MVI) TABLET (FP) PO SCH (09:47)
[2022-09-30] MEDS: SODIUM ZIRCONIUM CYCLOSILICATE (LOKELMA) 10 GM PACKET PO SCH (09:47)
[2022-09-30] MEDS: FERROUS SO4 325 MG TABLET (FP) PO SCH ×3 (09:47→18:07)
[2022-09-30] MEDS: FOLIC ACID 1 MG TABLET (FP) PO SCH (09:47)
[2022-09-30] MEDS: OLANZapine 5 MG TABLET PO SCH (09:47)
[2022-09-30] MEDS: ERTAPENEM SODIUM 0.5 GM in SODIUM CHLORIDE 50 ML IVPB SCH (09:47)
[2022-09-30] MEDS: LIDOCAINE 5% TOPICAL PATCH TP SCH (09:47)
[2022-09-30] MEDS: REMDESIVIR 100 MG in SODIUM CHLORIDE 250 ML IVPB SCH (12:19)
[2022-09-30] MEDS: SODIUM CHLORIDE 0.45% 1,000 ML IV SCH (18:07)
[2022-09-30] MEDS: ATORVASTATIN CA 20 MG TABLET (FP) PO SCH (22:43)
[2022-09-30] MEDS: LIDOCAINE PATCH REMOVAL MC SCH (22:47)
[2022-10-01] MEDS: hydrALAZINE HCL 50 MG TABLET (FP) PO SCH ×5 (00:25→23:14)
[2022-10-01] MEDS: QUEtiapine FUMARATE 50 MG TABLET PO SCH ×2 (00:33→21:58)
[2022-10-01] MEDS: OLANZapine 5 MG TABLET PO SCH ×3 (00:34→21:58)
[2022-10-01] MEDS ORDERED: COLLOIDAL OATMEAL 1 BAR EACH TP PRN (01:58)
[2022-10-01] MEDS: DOCUSATE SODIUM 100 MG CAPSULE (FP) PO SCH ×3 (06:11→21:57)
[2022-10-01] MEDS: SODIUM BICARBONATE 650 MG TABLET PO SCH ×3 (06:11→21:57)
[2022-10-01] MEDS: MINERAL OIL/PET HY-PHL TOPICAL OINTMENT 454 GM JAR TP SCH ×3 (06:11→21:58)
[2022-10-01 08:48] LABS: BASO % 0.7 % (0-2.0); EOS % 2.8 % (0-4.5); HEMATOCRIT 22.3 % (35.4-49); HEMOGLOBIN 7.3 GM/dL (11.7-16.9); LYMPH % 19.3 % (8-40); MCH 27.6 pg (25.7-33.7); MCHC 32.7 g/dl (32.0-35.9); MEAN CELL VOLUME 84.6 fl (80-96); MEAN PLT VOLUME 7.6 fl (7.5-11.1); MONO % 7.7 % (3.8-10.2); NEUT % 69.5 % (42.8-82.8); PLATELET COUNT 232 10^3/uL (134-434); RBC 2.64 M/mm3 (4.00-5.60); RDW 15.6 % (11.9-15.9); WHITE BLOOD COUNT 6.6 K/mm3 (4.0-10.0)
[2022-10-01] MEDS: levETIRAcetam 500 MG TABLET (FP) PO SCH ×2 (09:04→21:58)
[2022-10-01] MEDS: TAMSULOSIN HCL 0.4 MG CAP PO SCH ×2 (09:04→21:58)
[2022-10-01] MEDS: CARVEDILOL 25 MG TABLET (FP) PO SCH ×2 (09:04→21:57)
[2022-10-01] MEDS: amLODIPine BESYLATE 10 MG TABLET (FP) PO SCH (09:04)
[2022-10-01] MEDS: FERROUS SO4 325 MG TABLET (FP) PO SCH ×3 (09:04→17:23)
[2022-10-01] MEDS: FOLIC ACID 1 MG TABLET (FP) PO SCH (09:04)
[2022-10-01] MEDS: MULTIVITAMINS (DAILY MVI) TABLET (FP) PO SCH (09:04)
[2022-10-01] MEDS: POLYETHYLENE GLYCOL (HEALTHYLAX) 3350 17 GM PACKET PO SCH (09:05)
[2022-10-01] MEDS: SODIUM ZIRCONIUM CYCLOSILICATE (LOKELMA) 10 GM PACKET PO SCH (09:06)
[2022-10-01 09:14] LABS: CALCIUM 8.4 mg/dL (8.5-10.1)
[2022-10-01 09:15] LABS: ALBUMIN 2.6 g/dl (3.4-5.0); BLOOD UREA NITROGEN 71.4 mg/dL (7-18)
[2022-10-01 09:18] LABS: CREATININE 3.4 mg/dL (0.55-1.3)
[2022-10-01 09:20] LABS: BILIRUBIN,TOTAL 0.7 mg/dL (0.2-1); TOT PROT 6.9 g/dl (6.4-8.2)
[2022-10-01] MEDS: ERTAPENEM SODIUM 0.5 GM in SODIUM CHLORIDE 50 ML IVPB SCH (10:39)
[2022-10-01] MEDS: LIDOCAINE 5% TOPICAL PATCH TP SCH (10:54)
[2022-10-01] MEDS: REMDESIVIR 100 MG in SODIUM CHLORIDE 250 ML IVPB SCH (13:35)
[2022-10-01] MEDS: ATORVASTATIN CA 20 MG TABLET (FP) PO SCH (21:57)
[2022-10-01] MEDS: ACETAMINOPHEN 500 MG TABLET (FP) PO PRN (22:08)
[2022-10-01] MEDS: LIDOCAINE PATCH REMOVAL MC SCH (22:12)
[2022-10-02] MEDS: DOCUSATE SODIUM 100 MG CAPSULE (FP) PO SCH ×3 (06:41→21:15)
[2022-10-02] MEDS: hydrALAZINE HCL 50 MG TABLET (FP) PO SCH ×3 (06:41→18:52)
[2022-10-02] MEDS: SODIUM BICARBONATE 650 MG TABLET PO SCH ×3 (06:41→21:18)
[2022-10-02] MEDS: LIDOCAINE 5% TOPICAL PATCH TP SCH (09:36)
[2022-10-02] MEDS: OLANZapine 5 MG TABLET PO SCH ×2 (09:36→21:18)
[2022-10-02] MEDS: POLYETHYLENE GLYCOL (HEALTHYLAX) 3350 17 GM PACKET PO SCH (09:36)
[2022-10-02] MEDS: SODIUM ZIRCONIUM CYCLOSILICATE (LOKELMA) 10 GM PACKET PO SCH (09:36)
[2022-10-02] MEDS: FOLIC ACID 1 MG TABLET (FP) PO SCH (09:37)
[2022-10-02] MEDS: TAMSULOSIN HCL 0.4 MG CAP PO SCH ×2 (09:37→21:16)
[2022-10-02] MEDS: FERROUS SO4 325 MG TABLET (FP) PO SCH ×3 (09:37→18:52)
[2022-10-02] MEDS: amLODIPine BESYLATE 10 MG TABLET (FP) PO SCH (09:37)
[2022-10-02] MEDS: MINERAL OIL/PET HY-PHL TOPICAL OINTMENT 454 GM JAR TP SCH ×2 (09:37→21:26)
[2022-10-02] MEDS: ERTAPENEM SODIUM 0.5 GM in SODIUM CHLORIDE 50 ML IVPB SCH (09:37)
[2022-10-02] MEDS: CARVEDILOL 25 MG TABLET (FP) PO SCH ×2 (09:37→21:15)
[2022-10-02] MEDS: MULTIVITAMINS (DAILY MVI) TABLET (FP) PO SCH (09:37)
[2022-10-02] MEDS: levETIRAcetam 500 MG TABLET (FP) PO SCH ×2 (09:37→21:16)
[2022-10-02] MEDS: REMDESIVIR 100 MG in SODIUM CHLORIDE 250 ML IVPB SCH (12:59)
[2022-10-02] MEDS ORDERED: EPOETIN ALFA-EPBX 10,000 UNIT/ML VIAL IVPUSH ONE (13:18)
[2022-10-02] MEDS ORDERED: SODIUM CHLORIDE 0.45% 1,000 ML IV SCH (13:30)
[2022-10-02] MEDS ORDERED: EPOETIN ALFA-EPBX 10,000 UNIT/ML VIAL SQ ONE (13:45)
[2022-10-02] MEDS: ATORVASTATIN CA 20 MG TABLET (FP) PO SCH (21:16)
[2022-10-02] MEDS: QUEtiapine FUMARATE 50 MG TABLET PO SCH (21:17)
[2022-10-02] MEDS: LIDOCAINE PATCH REMOVAL MC SCH (21:28)
[2022-10-03] MEDS: hydrALAZINE HCL 50 MG TABLET (FP) PO SCH ×4 (01:27→17:44)
[2022-10-03] MEDS: DOCUSATE SODIUM 100 MG CAPSULE (FP) PO SCH ×3 (05:40→23:02)
[2022-10-03] MEDS: SODIUM BICARBONATE 650 MG TABLET PO SCH ×3 (05:40→23:02)
[2022-10-03] MEDS: FOLIC ACID 1 MG TABLET (FP) PO SCH (10:22)
[2022-10-03] MEDS: CARVEDILOL 25 MG TABLET (FP) PO SCH ×2 (10:22→23:02)
[2022-10-03] MEDS: MULTIVITAMINS (DAILY MVI) TABLET (FP) PO SCH (10:22)
[2022-10-03] MEDS: TAMSULOSIN HCL 0.4 MG CAP PO SCH ×2 (10:22→23:02)
[2022-10-03] MEDS: amLODIPine BESYLATE 10 MG TABLET (FP) PO SCH (10:22)
[2022-10-03] MEDS: SODIUM ZIRCONIUM CYCLOSILICATE (LOKELMA) 10 GM PACKET PO SCH (10:23)
[2022-10-03] MEDS: LIDOCAINE 5% TOPICAL PATCH TP SCH (10:23)
[2022-10-03] MEDS: FERROUS SO4 325 MG TABLET (FP) PO SCH ×3 (10:23→17:44)
[2022-10-03] MEDS: levETIRAcetam 500 MG TABLET (FP) PO SCH ×2 (10:23→23:02)
[2022-10-03] MEDS: OLANZapine 5 MG TABLET PO SCH ×2 (10:23→23:00)
[2022-10-03] MEDS: MINERAL OIL/PET HY-PHL TOPICAL OINTMENT 454 GM JAR TP SCH ×2 (10:24→23:52)
[2022-10-03] MEDS: POLYETHYLENE GLYCOL (HEALTHYLAX) 3350 17 GM PACKET PO SCH (11:10)
[2022-10-03] MEDS: ERTAPENEM SODIUM 0.5 GM in SODIUM CHLORIDE 50 ML IVPB SCH (15:35)
[2022-10-03] MEDS: REMDESIVIR 100 MG in SODIUM CHLORIDE 250 ML IVPB SCH (16:08)
[2022-10-03] MEDS: PANTOPRAZOLE 40 MG TABLET PO SCH (16:08)
[2022-10-03] MEDS: QUEtiapine FUMARATE 50 MG TABLET PO SCH (23:01)
[2022-10-03] MEDS: ATORVASTATIN CA 20 MG TABLET (FP) PO SCH (23:01)
[2022-10-03] MEDS: LIDOCAINE PATCH REMOVAL MC SCH (23:10)
[2022-10-04] MEDS: hydrALAZINE HCL 50 MG TABLET (FP) PO SCH ×5 (00:47→23:55)
[2022-10-04] MEDS: DOCUSATE SODIUM 100 MG CAPSULE (FP) PO SCH ×3 (05:08→23:55)
[2022-10-04] MEDS: SODIUM BICARBONATE 650 MG TABLET PO SCH ×3 (05:09→23:55)
[2022-10-04] MEDS: PANTOPRAZOLE 40 MG TABLET PO SCH (10:05)
[2022-10-04] MEDS: levETIRAcetam 500 MG TABLET (FP) PO SCH ×2 (10:05→23:54)
[2022-10-04] MEDS: FERROUS SO4 325 MG TABLET (FP) PO SCH ×3 (10:05→17:22)
[2022-10-04] MEDS: OLANZapine 5 MG TABLET PO SCH ×2 (10:05→23:54)
[2022-10-04] MEDS: CARVEDILOL 25 MG TABLET (FP) PO SCH ×2 (10:06→23:55)
[2022-10-04] MEDS: amLODIPine BESYLATE 10 MG TABLET (FP) PO SCH (10:06)
[2022-10-04] MEDS: MINERAL OIL/PET HY-PHL TOPICAL OINTMENT 454 GM JAR TP SCH ×2 (10:06→23:55)
[2022-10-04] MEDS: ERTAPENEM SODIUM 0.5 GM in SODIUM CHLORIDE 50 ML IVPB SCH (10:06)
[2022-10-04] MEDS: SODIUM ZIRCONIUM CYCLOSILICATE (LOKELMA) 10 GM PACKET PO SCH (10:06)
[2022-10-04] MEDS: FOLIC ACID 1 MG TABLET (FP) PO SCH (10:06)
[2022-10-04] MEDS: LIDOCAINE 5% TOPICAL PATCH TP SCH (10:06)
[2022-10-04] MEDS: MULTIVITAMINS (DAILY MVI) TABLET (FP) PO SCH (10:06)
[2022-10-04] MEDS: TAMSULOSIN HCL 0.4 MG CAP PO SCH ×2 (10:06→23:55)
[2022-10-04] MEDS: POLYETHYLENE GLYCOL (HEALTHYLAX) 3350 17 GM PACKET PO SCH (10:06)
[2022-10-04 13:04] LABS: BASO % 0.6 % (0-2.0); EOS % 3.4 % (0-4.5); HEMATOCRIT 22.2 % (35.4-49); HEMOGLOBIN 7.1 GM/dL (11.7-16.9); LYMPH % 21.1 % (8-40); MCH 26.9 pg (25.7-33.7); MCHC 32.2 g/dl (32.0-35.9); MEAN CELL VOLUME 83.6 fl (80-96); MEAN PLT VOLUME 7.1 fl (7.5-11.1); MONO % 9.5 % (3.8-10.2); NEUT % 65.4 % (42.8-82.8); PLATELET COUNT 267 10^3/uL (134-434); RBC 2.65 M/mm3 (4.00-5.60); RDW 15.2 % (11.9-15.9); WHITE BLOOD COUNT 6.1 K/mm3 (4.0-10.0)
[2022-10-04 13:29] LABS: BLOOD UREA NITROGEN 67.4 mg/dL (7-18); CALCIUM 8.1 mg/dL (8.5-10.1)
[2022-10-04 13:30] LABS: ALBUMIN 2.4 g/dl (3.4-5.0)
[2022-10-04 13:32] LABS: MAGNESIUM 1.9 mg/dL (1.8-2.4)
[2022-10-04 13:35] LABS: BILIRUBIN,TOTAL 0.2 mg/dL (0.2-1); TOT PROT 6.9 g/dl (6.4-8.2)
[2022-10-04 13:36] LABS: CREATININE 2.9 mg/dL (0.55-1.3)
[2022-10-04] MEDS ORDERED: IRON SUCROSE INJECTION 100 MG in SODIUM CHLORIDE 95 ML IVPB ONE (15:30)
[2022-10-04] MEDS: ATORVASTATIN CA 20 MG TABLET (FP) PO SCH (23:54)
[2022-10-04] MEDS: QUEtiapine FUMARATE 50 MG TABLET PO SCH (23:54)
[2022-10-04] MEDS: LIDOCAINE PATCH REMOVAL MC SCH (23:55)
[2022-10-05] MEDS: hydrALAZINE HCL 50 MG TABLET (FP) PO SCH ×4 (05:59→23:43)
[2022-10-05] MEDS: SODIUM BICARBONATE 650 MG TABLET PO SCH ×3 (05:59→22:06)
[2022-10-05] MEDS: DOCUSATE SODIUM 100 MG CAPSULE (FP) PO SCH ×3 (05:59→22:06)
[2022-10-05] MEDS: TAMSULOSIN HCL 0.4 MG CAP PO SCH ×2 (08:41→22:05)
[2022-10-05] MEDS: FERROUS SO4 325 MG TABLET (FP) PO SCH ×3 (08:41→18:09)
[2022-10-05] MEDS: amLODIPine BESYLATE 10 MG TABLET (FP) PO SCH (10:38)
[2022-10-05] MEDS: OLANZapine 5 MG TABLET PO SCH ×2 (10:38→22:05)
[2022-10-05] MEDS: PANTOPRAZOLE 40 MG TABLET PO SCH (10:38)
[2022-10-05] MEDS: levETIRAcetam 500 MG TABLET (FP) PO SCH ×2 (10:38→22:05)
[2022-10-05] MEDS: MULTIVITAMINS (DAILY MVI) TABLET (FP) PO SCH (10:38)
[2022-10-05] MEDS: MINERAL OIL/PET HY-PHL TOPICAL OINTMENT 454 GM JAR TP SCH ×2 (10:39→22:06)
[2022-10-05] MEDS: FOLIC ACID 1 MG TABLET (FP) PO SCH (10:39)
[2022-10-05] MEDS: CARVEDILOL 25 MG TABLET (FP) PO SCH ×2 (10:39→22:05)
[2022-10-05] MEDS: SODIUM ZIRCONIUM CYCLOSILICATE (LOKELMA) 10 GM PACKET PO SCH (10:39)
[2022-10-05] MEDS: LIDOCAINE 5% TOPICAL PATCH TP SCH (10:39)
[2022-10-05] MEDS: POLYETHYLENE GLYCOL (HEALTHYLAX) 3350 17 GM PACKET PO SCH (10:39)
[2022-10-05 10:52] LABS: BASO % 0.6 % (0-2.0); EOS % 4.5 % (0-4.5); HEMATOCRIT 24.6 % (35.4-49); HEMOGLOBIN 7.7 GM/dL (11.7-16.9); LYMPH % 22.9 % (8-40); MCH 26.5 pg (25.7-33.7); MCHC 31.4 g/dl (32.0-35.9); MEAN CELL VOLUME 84.5 fl (80-96); MEAN PLT VOLUME 7.2 fl (7.5-11.1); MONO % 7.6 % (3.8-10.2); NEUT % 64.4 % (42.8-82.8); PLATELET COUNT 275 10^3/uL (134-434); RBC 2.91 M/mm3 (4.00-5.60); RDW 15.2 % (11.9-15.9); WHITE BLOOD COUNT 5.1 K/mm3 (4.0-10.0)
[2022-10-05] MEDS ORDERED: IRON SUCROSE INJECTION 100 MG in SODIUM CHLORIDE 95 ML IVPB ONE (11:00)
[2022-10-05 11:15] LABS: ALBUMIN 2.5 g/dl (3.4-5.0); CALCIUM 8.3 mg/dL (8.5-10.1)
[2022-10-05 11:16] LABS: BLOOD UREA NITROGEN 68.5 mg/dL (7-18); MAGNESIUM 1.9 mg/dL (1.8-2.4)
[2022-10-05 11:18] LABS: CREATININE 3.2 mg/dL (0.55-1.3)
[2022-10-05 11:20] LABS: BILIRUBIN,TOTAL 0.2 mg/dL (0.2-1); TOT PROT 6.7 g/dl (6.4-8.2)
[2022-10-05] MEDS: QUEtiapine FUMARATE 50 MG TABLET PO SCH (22:05)
[2022-10-05] MEDS: ATORVASTATIN CA 20 MG TABLET (FP) PO SCH (22:05)
[2022-10-05] MEDS: LIDOCAINE PATCH REMOVAL MC SCH (22:06)
[2022-10-06] MEDS: DOCUSATE SODIUM 100 MG CAPSULE (FP) PO SCH ×3 (05:36→22:52)
[2022-10-06] MEDS: hydrALAZINE HCL 50 MG TABLET (FP) PO SCH ×3 (05:36→17:34)
[2022-10-06] MEDS: SODIUM BICARBONATE 650 MG TABLET PO SCH ×3 (05:36→22:52)
[2022-10-06] MEDS: PANTOPRAZOLE 40 MG TABLET PO SCH (09:30)
[2022-10-06] MEDS: amLODIPine BESYLATE 10 MG TABLET (FP) PO SCH (09:31)
[2022-10-06] MEDS: FERROUS SO4 325 MG TABLET (FP) PO SCH ×3 (09:31→17:34)
[2022-10-06] MEDS: FOLIC ACID 1 MG TABLET (FP) PO SCH (09:31)
[2022-10-06] MEDS: OLANZapine 5 MG TABLET PO SCH ×2 (09:31→22:53)
[2022-10-06] MEDS: levETIRAcetam 500 MG TABLET (FP) PO SCH ×2 (09:32→22:53)
[2022-10-06] MEDS: CARVEDILOL 25 MG TABLET (FP) PO SCH ×2 (09:32→22:53)
[2022-10-06] MEDS: SODIUM ZIRCONIUM CYCLOSILICATE (LOKELMA) 10 GM PACKET PO SCH (09:32)
[2022-10-06] MEDS: TAMSULOSIN HCL 0.4 MG CAP PO SCH ×2 (09:32→22:53)
[2022-10-06] MEDS: LIDOCAINE 5% TOPICAL PATCH TP SCH (09:32)
[2022-10-06] MEDS: POLYETHYLENE GLYCOL (HEALTHYLAX) 3350 17 GM PACKET PO SCH (09:32)
[2022-10-06] MEDS: MINERAL OIL/PET HY-PHL TOPICAL OINTMENT 454 GM JAR TP SCH ×2 (09:32→22:53)
[2022-10-06] MEDS: MULTIVITAMINS (DAILY MVI) TABLET (FP) PO SCH (09:32)
[2022-10-06] MEDS ORDERED: IRON SUCROSE INJECTION 100 MG in SODIUM CHLORIDE 95 ML IVPB ONE (10:05)
[2022-10-06 10:24] LABS: BASO % 0.5 % (0-2.0); EOS % 6.1 % (0-4.5); HEMATOCRIT 22.3 % (35.4-49); HEMOGLOBIN 7.2 GM/dL (11.7-16.9); LYMPH % 22.2 % (8-40); MCH 26.9 pg (25.7-33.7); MCHC 32.2 g/dl (32.0-35.9); MEAN CELL VOLUME 83.5 fl (80-96); MEAN PLT VOLUME 6.8 fl (7.5-11.1); MONO % 9.5 % (3.8-10.2); NEUT % 61.7 % (42.8-82.8); PLATELET COUNT 315 10^3/uL (134-434); RBC 2.67 M/mm3 (4.00-5.60); RDW 15.4 % (11.9-15.9); WHITE BLOOD COUNT 5.8 K/mm3 (4.0-10.0)
[2022-10-06 10:44] LABS: CALCIUM 8.6 mg/dL (8.5-10.1)
[2022-10-06 10:45] LABS: ALBUMIN 2.5 g/dl (3.4-5.0); BLOOD UREA NITROGEN 66.6 mg/dL (7-18)
[2022-10-06 10:48] LABS: CREATININE 3.1 mg/dL (0.55-1.3)
[2022-10-06 10:49] LABS: TOT PROT 6.8 g/dl (6.4-8.2)
[2022-10-06 10:50] LABS: BILIRUBIN,TOTAL 0.2 mg/dL (0.2-1)
[2022-10-06] MEDS ORDERED: EPOETIN ALFA-EPBX 10,000 UNIT/ML VIAL SQ ONE (16:11)
[2022-10-06] MEDS: ATORVASTATIN CA 20 MG TABLET (FP) PO SCH (22:52)
[2022-10-06] MEDS: QUEtiapine FUMARATE 50 MG TABLET PO SCH (22:52)
[2022-10-06] MEDS: LIDOCAINE PATCH REMOVAL MC SCH (22:53)
[2022-10-07] MEDS: hydrALAZINE HCL 50 MG TABLET (FP) PO SCH ×5 (00:56→23:20)
[2022-10-07] MEDS: DOCUSATE SODIUM 100 MG CAPSULE (FP) PO SCH ×3 (06:37→22:57)
[2022-10-07] MEDS: SODIUM BICARBONATE 650 MG TABLET PO SCH ×3 (06:37→22:56)
[2022-10-07] MEDS: amLODIPine BESYLATE 10 MG TABLET (FP) PO SCH (09:27)
[2022-10-07] MEDS: POLYETHYLENE GLYCOL (HEALTHYLAX) 3350 17 GM PACKET PO SCH (09:27)
[2022-10-07] MEDS: TAMSULOSIN HCL 0.4 MG CAP PO SCH ×2 (09:27→22:56)
[2022-10-07] MEDS: PANTOPRAZOLE 40 MG TABLET PO SCH (09:27)
[2022-10-07] MEDS: OLANZapine 5 MG TABLET PO SCH ×2 (09:27→22:56)
[2022-10-07] MEDS: MULTIVITAMINS (DAILY MVI) TABLET (FP) PO SCH (09:27)
[2022-10-07] MEDS: MINERAL OIL/PET HY-PHL TOPICAL OINTMENT 454 GM JAR TP SCH ×2 (09:27→22:57)
[2022-10-07] MEDS: SODIUM ZIRCONIUM CYCLOSILICATE (LOKELMA) 10 GM PACKET PO SCH (09:27)
[2022-10-07] MEDS: levETIRAcetam 500 MG TABLET (FP) PO SCH ×2 (09:27→22:56)
[2022-10-07] MEDS: CARVEDILOL 25 MG TABLET (FP) PO SCH ×2 (09:27→22:56)
[2022-10-07] MEDS: FERROUS SO4 325 MG TABLET (FP) PO SCH ×3 (09:27→17:21)
[2022-10-07] MEDS: FOLIC ACID 1 MG TABLET (FP) PO SCH (09:27)
[2022-10-07] MEDS: LIDOCAINE 5% TOPICAL PATCH TP SCH (09:28)
[2022-10-07] MEDS: ATORVASTATIN CA 20 MG TABLET (FP) PO SCH (22:57)
[2022-10-07] MEDS: LIDOCAINE PATCH REMOVAL MC SCH (22:57)
[2022-10-07] MEDS: QUEtiapine FUMARATE 50 MG TABLET PO SCH (22:57)
[2022-10-08] MEDS: SODIUM BICARBONATE 650 MG TABLET PO SCH ×3 (06:25→21:56)
[2022-10-08] MEDS: DOCUSATE SODIUM 100 MG CAPSULE (FP) PO SCH ×3 (06:25→21:57)
[2022-10-08] MEDS: hydrALAZINE HCL 50 MG TABLET (FP) PO SCH ×4 (06:25→23:59)
[2022-10-08] MEDS: FERROUS SO4 325 MG TABLET (FP) PO SCH (08:52)
[2022-10-08 09:29] LABS: BASO % 0.5 % (0-2.0); EOS % 5.1 % (0-4.5); HEMATOCRIT 24.8 % (35.4-49); HEMOGLOBIN 7.9 GM/dL (11.7-16.9); LYMPH % 23.6 % (8-40); MCH 26.8 pg (25.7-33.7); MCHC 31.9 g/dl (32.0-35.9); MEAN CELL VOLUME 83.9 fl (80-96); MEAN PLT VOLUME 6.6 fl (7.5-11.1); MONO % 10.5 % (3.8-10.2); NEUT % 60.3 % (42.8-82.8); PLATELET COUNT 364 10^3/uL (134-434); RBC 2.95 M/mm3 (4.00-5.60); RDW 15.4 % (11.9-15.9)
[2022-10-08 09:56] LABS: CALCIUM 8.8 mg/dL (8.5-10.1)
[2022-10-08 09:57] LABS: ALBUMIN 2.6 g/dl (3.4-5.0)
[2022-10-08 10:00] LABS: CREATININE 3.2 mg/dL (0.55-1.3)
[2022-10-08 10:01] LABS: BILIRUBIN,TOTAL 0.3 mg/dL (0.2-1); TOT PROT 6.9 g/dl (6.4-8.2)
[2022-10-08] MEDS: OLANZapine 5 MG TABLET PO SCH ×2 (10:17→21:54)
[2022-10-08] MEDS: amLODIPine BESYLATE 10 MG TABLET (FP) PO SCH (10:17)
[2022-10-08] MEDS: LIDOCAINE 5% TOPICAL PATCH TP SCH (10:17)
[2022-10-08] MEDS: POLYETHYLENE GLYCOL (HEALTHYLAX) 3350 17 GM PACKET PO SCH (10:18)
[2022-10-08] MEDS: PANTOPRAZOLE 40 MG TABLET PO SCH (10:18)
[2022-10-08] MEDS: TAMSULOSIN HCL 0.4 MG CAP PO SCH ×2 (10:18→21:56)
[2022-10-08] MEDS: MULTIVITAMINS (DAILY MVI) TABLET (FP) PO SCH (10:18)
[2022-10-08] MEDS: levETIRAcetam 500 MG TABLET (FP) PO SCH ×2 (10:18→21:54)
[2022-10-08] MEDS: CARVEDILOL 25 MG TABLET (FP) PO SCH ×2 (10:18→21:57)
[2022-10-08] MEDS: FOLIC ACID 1 MG TABLET (FP) PO SCH (10:18)
[2022-10-08] MEDS: MINERAL OIL/PET HY-PHL TOPICAL OINTMENT 454 GM JAR TP SCH ×2 (10:18→21:57)
[2022-10-08] MEDS: SODIUM ZIRCONIUM CYCLOSILICATE (LOKELMA) 10 GM PACKET PO SCH (10:18)
[2022-10-08] MEDS ORDERED: EPOETIN ALFA-EPBX 10,000 UNIT/ML VIAL SQ ONE (11:56)
[2022-10-08] MEDS: QUEtiapine FUMARATE 50 MG TABLET PO SCH (21:55)
[2022-10-08] MEDS: ATORVASTATIN CA 20 MG TABLET (FP) PO SCH (21:56)
[2022-10-08] MEDS: LIDOCAINE PATCH REMOVAL MC SCH (21:57)
[2022-10-09] MEDS: SODIUM BICARBONATE 650 MG TABLET PO SCH ×3 (06:28→22:57)
[2022-10-09] MEDS: DOCUSATE SODIUM 100 MG CAPSULE (FP) PO SCH ×3 (06:28→22:57)
[2022-10-09] MEDS: hydrALAZINE HCL 50 MG TABLET (FP) PO SCH ×3 (06:28→17:52)
[2022-10-09] MEDS: TAMSULOSIN HCL 0.4 MG CAP PO SCH ×2 (12:00→22:59)
[2022-10-09] MEDS: levETIRAcetam 500 MG TABLET (FP) PO SCH ×2 (12:00→22:57)
[2022-10-09] MEDS: SODIUM ZIRCONIUM CYCLOSILICATE (LOKELMA) 10 GM PACKET PO SCH (12:00)
[2022-10-09] MEDS: POLYETHYLENE GLYCOL (HEALTHYLAX) 3350 17 GM PACKET PO SCH (12:00)
[2022-10-09] MEDS: OLANZapine 5 MG TABLET PO SCH ×2 (12:00→22:58)
[2022-10-09] MEDS: PANTOPRAZOLE 40 MG TABLET PO SCH (12:01)
[2022-10-09] MEDS: MULTIVITAMINS (DAILY MVI) TABLET (FP) PO SCH (12:01)
[2022-10-09] MEDS: amLODIPine BESYLATE 10 MG TABLET (FP) PO SCH (12:01)
[2022-10-09] MEDS: FOLIC ACID 1 MG TABLET (FP) PO SCH (12:01)
[2022-10-09] MEDS: CARVEDILOL 25 MG TABLET (FP) PO SCH ×2 (12:01→22:59)
[2022-10-09] MEDS: MINERAL OIL/PET HY-PHL TOPICAL OINTMENT 454 GM JAR TP SCH ×2 (12:11→23:03)
[2022-10-09] MEDS: LIDOCAINE 5% TOPICAL PATCH TP SCH (12:11)
[2022-10-09] MEDS: ATORVASTATIN CA 20 MG TABLET (FP) PO SCH (22:57)
[2022-10-09] MEDS: QUEtiapine FUMARATE 50 MG TABLET PO SCH (22:58)
[2022-10-10] MEDS: LIDOCAINE PATCH REMOVAL MC SCH ×2 (00:17→23:19)
[2022-10-10] MEDS: hydrALAZINE HCL 50 MG TABLET (FP) PO SCH ×4 (00:32→18:11)
[2022-10-10] MEDS: SODIUM BICARBONATE 650 MG TABLET PO SCH ×3 (07:04→22:57)
[2022-10-10] MEDS: DOCUSATE SODIUM 100 MG CAPSULE (FP) PO SCH ×3 (07:05→22:57)
[2022-10-10] MEDS: SODIUM ZIRCONIUM CYCLOSILICATE (LOKELMA) 10 GM PACKET PO SCH (11:33)
[2022-10-10] MEDS: OLANZapine 5 MG TABLET PO SCH ×2 (11:34→22:56)
[2022-10-10] MEDS: POLYETHYLENE GLYCOL (HEALTHYLAX) 3350 17 GM PACKET PO SCH (11:34)
[2022-10-10] MEDS: levETIRAcetam 500 MG TABLET (FP) PO SCH ×2 (11:34→22:58)
[2022-10-10] MEDS: MULTIVITAMINS (DAILY MVI) TABLET (FP) PO SCH (11:34)
[2022-10-10] MEDS: FOLIC ACID 1 MG TABLET (FP) PO SCH (11:35)
[2022-10-10] MEDS: MINERAL OIL/PET HY-PHL TOPICAL OINTMENT 454 GM JAR TP SCH ×2 (11:35→23:19)
[2022-10-10] MEDS: TAMSULOSIN HCL 0.4 MG CAP PO SCH ×2 (11:35→22:57)
[2022-10-10] MEDS: amLODIPine BESYLATE 10 MG TABLET (FP) PO SCH (11:35)
[2022-10-10] MEDS: PANTOPRAZOLE 40 MG TABLET PO SCH (11:35)
[2022-10-10] MEDS: CARVEDILOL 25 MG TABLET (FP) PO SCH ×2 (11:35→22:58)
[2022-10-10] MEDS: LIDOCAINE 5% TOPICAL PATCH TP SCH ×2 (11:36→11:42)
[2022-10-10 14:19] LABS: BLOOD UREA NITROGEN 62.8 mg/dL (7-18); CALCIUM 8.6 mg/dL (8.5-10.1); MAGNESIUM 1.9 mg/dL (1.8-2.4)
[2022-10-10 14:20] LABS: ALBUMIN 2.8 g/dl (3.4-5.0)
[2022-10-10 14:22] LABS: CREATININE 2.9 mg/dL (0.55-1.3)
[2022-10-10 14:24] LABS: TOT PROT 7.4 g/dl (6.4-8.2)
[2022-10-10 14:26] LABS: BILIRUBIN,TOTAL 0.2 mg/dL (0.2-1)
[2022-10-10] MEDS: ATORVASTATIN CA 20 MG TABLET (FP) PO SCH (22:57)
[2022-10-10] MEDS: QUEtiapine FUMARATE 50 MG TABLET PO SCH (22:58)
[2022-10-11] MEDS: hydrALAZINE HCL 50 MG TABLET (FP) PO SCH ×4 (00:17→17:06)
[2022-10-11] MEDS: SODIUM BICARBONATE 650 MG TABLET PO SCH ×3 (07:09→21:36)
[2022-10-11] MEDS: DOCUSATE SODIUM 100 MG CAPSULE (FP) PO SCH ×3 (07:09→21:36)
[2022-10-11] MEDS: SODIUM ZIRCONIUM CYCLOSILICATE (LOKELMA) 10 GM PACKET PO SCH (10:35)
[2022-10-11] MEDS: FOLIC ACID 1 MG TABLET (FP) PO SCH (10:36)
[2022-10-11] MEDS: CARVEDILOL 25 MG TABLET (FP) PO SCH ×2 (10:36→21:37)
[2022-10-11] MEDS: OLANZapine 5 MG TABLET PO SCH ×2 (10:36→21:36)
[2022-10-11] MEDS: levETIRAcetam 500 MG TABLET (FP) PO SCH ×2 (10:36→21:36)
[2022-10-11] MEDS: POLYETHYLENE GLYCOL (HEALTHYLAX) 3350 17 GM PACKET PO SCH (10:36)
[2022-10-11] MEDS: TAMSULOSIN HCL 0.4 MG CAP PO SCH ×2 (10:36→21:37)
[2022-10-11] MEDS: amLODIPine BESYLATE 10 MG TABLET (FP) PO SCH (10:36)
[2022-10-11] MEDS: MULTIVITAMINS (DAILY MVI) TABLET (FP) PO SCH (10:36)
[2022-10-11] MEDS: PANTOPRAZOLE 40 MG TABLET PO SCH (10:36)
[2022-10-11] MEDS: MINERAL OIL/PET HY-PHL TOPICAL OINTMENT 454 GM JAR TP SCH ×2 (10:37→21:37)
[2022-10-11] MEDS: LIDOCAINE 5% TOPICAL PATCH TP SCH (10:43)
[2022-10-11] MEDS: ATORVASTATIN CA 20 MG TABLET (FP) PO SCH (21:37)
[2022-10-11] MEDS: QUEtiapine FUMARATE 50 MG TABLET PO SCH (21:37)
[2022-10-11] MEDS: LIDOCAINE PATCH REMOVAL MC SCH (21:37)
[2022-10-12] MEDS: hydrALAZINE HCL 50 MG TABLET (FP) PO SCH ×4 (00:30→17:32)
[2022-10-12] MEDS: SODIUM BICARBONATE 650 MG TABLET PO SCH ×3 (06:41→23:36)
[2022-10-12] MEDS: DOCUSATE SODIUM 100 MG CAPSULE (FP) PO SCH ×3 (06:41→23:36)
[2022-10-12] MEDS: FOLIC ACID 1 MG TABLET (FP) PO SCH (09:45)
[2022-10-12] MEDS: amLODIPine BESYLATE 10 MG TABLET (FP) PO SCH (09:45)
[2022-10-12] MEDS: PANTOPRAZOLE 40 MG TABLET PO SCH (09:45)
[2022-10-12] MEDS: TAMSULOSIN HCL 0.4 MG CAP PO SCH ×2 (09:45→23:37)
[2022-10-12] MEDS: OLANZapine 5 MG TABLET PO SCH ×2 (09:45→23:37)
[2022-10-12] MEDS: CARVEDILOL 25 MG TABLET (FP) PO SCH ×2 (09:45→23:36)
[2022-10-12] MEDS: levETIRAcetam 500 MG TABLET (FP) PO SCH ×2 (09:45→23:36)
[2022-10-12] MEDS: MULTIVITAMINS (DAILY MVI) TABLET (FP) PO SCH (09:45)
[2022-10-12] MEDS: SODIUM ZIRCONIUM CYCLOSILICATE (LOKELMA) 10 GM PACKET PO SCH (09:46)
[2022-10-12] MEDS: LIDOCAINE 5% TOPICAL PATCH TP SCH (09:46)
[2022-10-12] MEDS: POLYETHYLENE GLYCOL (HEALTHYLAX) 3350 17 GM PACKET PO SCH (09:46)
[2022-10-12] MEDS: MINERAL OIL/PET HY-PHL TOPICAL OINTMENT 454 GM JAR TP SCH ×2 (09:55→23:37)
[2022-10-12 10:44] LABS: BASO % 0.5 % (0-2.0); EOS % 2.1 % (0-4.5); HEMOGLOBIN 8.3 GM/dL (11.7-16.9); LYMPH % 13.1 % (8-40); MCHC 31.9 g/dl (32.0-35.9); MEAN CELL VOLUME 84.8 fl (80-96); MEAN PLT VOLUME 6.4 fl (7.5-11.1); MONO % 7.4 % (3.8-10.2); NEUT % 76.9 % (42.8-82.8); PLATELET COUNT 328 10^3/uL (134-434); RBC 3.06 M/mm3 (4.00-5.60); RDW 16.3 % (11.9-15.9); WHITE BLOOD COUNT 8.4 K/mm3 (4.0-10.0)
[2022-10-12 11:16] LABS: CALCIUM 8.8 mg/dL (8.5-10.1)
[2022-10-12 11:17] LABS: ALBUMIN 2.7 g/dl (3.4-5.0); BLOOD UREA NITROGEN 57.6 mg/dL (7-18); CREATININE 2.9 mg/dL (0.55-1.3); MAGNESIUM 1.7 mg/dL (1.8-2.4)
[2022-10-12 11:20] LABS: BILIRUBIN,TOTAL 0.3 mg/dL (0.2-1); TOT PROT 7.1 g/dl (6.4-8.2)
[2022-10-12] MEDS: ATORVASTATIN CA 20 MG TABLET (FP) PO SCH (23:36)
[2022-10-12] MEDS: QUEtiapine FUMARATE 50 MG TABLET PO SCH (23:36)
[2022-10-12] MEDS: LIDOCAINE PATCH REMOVAL MC SCH (23:37)
[2022-10-13] MEDS: hydrALAZINE HCL 50 MG TABLET (FP) PO SCH ×4 (00:32→18:06)
[2022-10-13] MEDS: SODIUM BICARBONATE 650 MG TABLET PO SCH ×3 (06:35→22:40)
[2022-10-13] MEDS: DOCUSATE SODIUM 100 MG CAPSULE (FP) PO SCH ×3 (06:35→22:38)
[2022-10-13] MEDS: levETIRAcetam 500 MG TABLET (FP) PO SCH ×2 (10:25→22:39)
[2022-10-13] MEDS: MULTIVITAMINS (DAILY MVI) TABLET (FP) PO SCH (10:25)
[2022-10-13] MEDS: PANTOPRAZOLE 40 MG TABLET PO SCH (10:25)
[2022-10-13] MEDS: OLANZapine 5 MG TABLET PO SCH ×2 (10:25→22:40)
[2022-10-13] MEDS: TAMSULOSIN HCL 0.4 MG CAP PO SCH ×2 (10:25→22:40)
[2022-10-13] MEDS: amLODIPine BESYLATE 10 MG TABLET (FP) PO SCH (10:25)
[2022-10-13] MEDS: CARVEDILOL 25 MG TABLET (FP) PO SCH ×2 (10:25→22:39)
[2022-10-13] MEDS: LIDOCAINE 5% TOPICAL PATCH TP SCH (10:26)
[2022-10-13] MEDS: FOLIC ACID 1 MG TABLET (FP) PO SCH (10:26)
[2022-10-13] MEDS: MINERAL OIL/PET HY-PHL TOPICAL OINTMENT 454 GM JAR TP SCH ×2 (10:26→22:42)
[2022-10-13] MEDS: POLYETHYLENE GLYCOL (HEALTHYLAX) 3350 17 GM PACKET PO SCH (10:38)
[2022-10-13] MEDS: SODIUM ZIRCONIUM CYCLOSILICATE (LOKELMA) 10 GM PACKET PO SCH (10:38)
[2022-10-13] MEDS ORDERED: EPOETIN ALFA-EPBX 10,000 UNIT/ML VIAL SQ ONE (15:45)
[2022-10-13] MEDS ORDERED: IRON SUCROSE INJECTION 100 MG in SODIUM CHLORIDE 95 ML IVPB ONE (16:00)
[2022-10-13] MEDS: ATORVASTATIN CA 20 MG TABLET (FP) PO SCH (22:38)
[2022-10-13] MEDS: QUEtiapine FUMARATE 50 MG TABLET PO SCH (22:39)
[2022-10-13] MEDS: FERROUS SO4 325 MG TABLET (FP) PO SCH (22:39)
[2022-10-13] MEDS: LIDOCAINE PATCH REMOVAL MC SCH (22:40)
[2022-10-14] MEDS: hydrALAZINE HCL 50 MG TABLET (FP) PO SCH ×4 (01:29→17:37)
[2022-10-14] MEDS: SODIUM BICARBONATE 650 MG TABLET PO SCH ×3 (08:07→22:50)
[2022-10-14] MEDS: DOCUSATE SODIUM 100 MG CAPSULE (FP) PO SCH ×3 (08:07→22:50)
[2022-10-14 09:37] LABS: HEMATOCRIT 24.3 % (35.4-49); HEMOGLOBIN 7.7 GM/dL (11.7-16.9); MCH 26.6 pg (25.7-33.7); MCHC 31.6 g/dl (32.0-35.9); MEAN CELL VOLUME 84.4 fl (80-96); MEAN PLT VOLUME 7.5 fl (7.5-11.1); PLATELET COUNT 311 10^3/uL (134-434); RBC 2.88 M/mm3 (4.00-5.60); RDW 17.3 % (11.9-15.9)
[2022-10-14 09:38] LABS: WHITE BLOOD COUNT 13.6 K/mm3 (4.0-10.0)
[2022-10-14 09:43] LABS: BLOOD UREA NITROGEN 62.9 mg/dL (7-18); MAGNESIUM 1.8 mg/dL (1.8-2.4)
[2022-10-14] MEDS: amLODIPine BESYLATE 10 MG TABLET (FP) PO SCH (09:43)
[2022-10-14] MEDS: CARVEDILOL 25 MG TABLET (FP) PO SCH ×2 (09:43→22:52)
[2022-10-14] MEDS: TAMSULOSIN HCL 0.4 MG CAP PO SCH ×2 (09:43→22:51)
[2022-10-14] MEDS: PANTOPRAZOLE 40 MG TABLET PO SCH (09:43)
[2022-10-14] MEDS: FERROUS SO4 325 MG TABLET (FP) PO SCH ×2 (09:43→22:50)
[2022-10-14] MEDS: MULTIVITAMINS (DAILY MVI) TABLET (FP) PO SCH (09:43)
[2022-10-14] MEDS: OLANZapine 5 MG TABLET PO SCH ×2 (09:43→22:49)
[2022-10-14] MEDS: levETIRAcetam 500 MG TABLET (FP) PO SCH ×2 (09:43→22:49)
[2022-10-14] MEDS: FOLIC ACID 1 MG TABLET (FP) PO SCH (09:43)
[2022-10-14 09:44] LABS: CALCIUM 8.7 mg/dL (8.5-10.1)
[2022-10-14] MEDS: MINERAL OIL/PET HY-PHL TOPICAL OINTMENT 454 GM JAR TP SCH ×2 (09:44→22:53)
[2022-10-14] MEDS: LIDOCAINE 5% TOPICAL PATCH TP SCH (09:44)
[2022-10-14] MEDS: POLYETHYLENE GLYCOL (HEALTHYLAX) 3350 17 GM PACKET PO SCH (09:44)
[2022-10-14 09:46] LABS: ALBUMIN 2.6 g/dl (3.4-5.0)
[2022-10-14 09:49] LABS: CREATININE 3.5 mg/dL (0.55-1.3)
[2022-10-14 09:52] LABS: TOT PROT 6.7 g/dl (6.4-8.2)
[2022-10-14 09:53] LABS: BILIRUBIN,TOTAL 0.2 mg/dL (0.2-1)
[2022-10-14 10:19] LABS: ANISOCYTOSIS 2+; MACROCYTOSIS 1+
[2022-10-14] MEDS: ATORVASTATIN CA 20 MG TABLET (FP) PO SCH (22:48)
[2022-10-14] MEDS: QUEtiapine FUMARATE 50 MG TABLET PO SCH (22:50)
[2022-10-15] MEDS: hydrALAZINE HCL 50 MG TABLET (FP) PO SCH ×5 (07:08→23:41)
[2022-10-15] MEDS: DOCUSATE SODIUM 100 MG CAPSULE (FP) PO SCH ×3 (07:08→22:34)
[2022-10-15] MEDS: SODIUM BICARBONATE 650 MG TABLET PO SCH ×3 (07:09→22:34)
[2022-10-15] MEDS: CARVEDILOL 25 MG TABLET (FP) PO SCH ×2 (10:24→22:34)
[2022-10-15] MEDS: FERROUS SO4 325 MG TABLET (FP) PO SCH ×2 (10:24→22:34)
[2022-10-15] MEDS: levETIRAcetam 500 MG TABLET (FP) PO SCH ×2 (10:24→22:35)
[2022-10-15] MEDS: TAMSULOSIN HCL 0.4 MG CAP PO SCH ×2 (10:24→22:33)
[2022-10-15] MEDS: amLODIPine BESYLATE 10 MG TABLET (FP) PO SCH (10:24)
[2022-10-15] MEDS: FOLIC ACID 1 MG TABLET (FP) PO SCH (10:24)
[2022-10-15] MEDS: OLANZapine 5 MG TABLET PO SCH ×2 (10:24→22:32)
[2022-10-15] MEDS: MULTIVITAMINS (DAILY MVI) TABLET (FP) PO SCH (10:25)
[2022-10-15] MEDS: POLYETHYLENE GLYCOL (HEALTHYLAX) 3350 17 GM PACKET PO SCH (10:27)
[2022-10-15] MEDS: PANTOPRAZOLE 40 MG TABLET PO SCH (10:27)
[2022-10-15] MEDS: MINERAL OIL/PET HY-PHL TOPICAL OINTMENT 454 GM JAR TP SCH ×2 (10:29→22:37)
[2022-10-15] MEDS: LIDOCAINE 5% TOPICAL PATCH TP SCH (10:32)
[2022-10-15] MEDS: QUEtiapine FUMARATE 50 MG TABLET PO SCH (22:32)
[2022-10-15] MEDS: ATORVASTATIN CA 20 MG TABLET (FP) PO SCH (22:34)
[2022-10-15] MEDS: LIDOCAINE PATCH REMOVAL MC SCH ×2 (23:41)
[2022-10-16] MEDS: DOCUSATE SODIUM 100 MG CAPSULE (FP) PO SCH ×3 (06:57→22:32)
[2022-10-16] MEDS: SODIUM BICARBONATE 650 MG TABLET PO SCH ×3 (06:57→22:35)
[2022-10-16] MEDS: hydrALAZINE HCL 50 MG TABLET (FP) PO SCH (06:57)
[2022-10-16] MEDS: FOLIC ACID 1 MG TABLET (FP) PO SCH (10:09)
[2022-10-16] MEDS: OLANZapine 5 MG TABLET PO SCH ×2 (10:09→22:35)
[2022-10-16] MEDS: amLODIPine BESYLATE 10 MG TABLET (FP) PO SCH (10:09)
[2022-10-16] MEDS: FERROUS SO4 325 MG TABLET (FP) PO SCH ×2 (10:09→22:33)
[2022-10-16] MEDS: PANTOPRAZOLE 40 MG TABLET PO SCH (10:09)
[2022-10-16] MEDS: POLYETHYLENE GLYCOL (HEALTHYLAX) 3350 17 GM PACKET PO SCH (10:09)
[2022-10-16] MEDS: MULTIVITAMINS (DAILY MVI) TABLET (FP) PO SCH (10:09)
[2022-10-16] MEDS: TAMSULOSIN HCL 0.4 MG CAP PO SCH ×2 (10:09→22:33)
[2022-10-16] MEDS: LIDOCAINE 5% TOPICAL PATCH TP SCH (10:09)
[2022-10-16] MEDS: levETIRAcetam 500 MG TABLET (FP) PO SCH ×2 (10:09→22:33)
[2022-10-16] MEDS: CARVEDILOL 25 MG TABLET (FP) PO SCH ×2 (10:10→22:32)
[2022-10-16] MEDS: MINERAL OIL/PET HY-PHL TOPICAL OINTMENT 454 GM JAR TP SCH ×2 (10:10→22:32)
[2022-10-16 11:14] LABS: BASO % 0.3 % (0-2.0); EOS % 1.1 % (0-4.5); HEMATOCRIT 23.6 % (35.4-49); HEMOGLOBIN 7.5 GM/dL (11.7-16.9); LYMPH % 11.4 % (8-40); MCH 26.7 pg (25.7-33.7); MCHC 31.9 g/dl (32.0-35.9); MEAN CELL VOLUME 83.6 fl (80-96); MEAN PLT VOLUME 6.9 fl (7.5-11.1); MONO % 8.4 % (3.8-10.2); NEUT % 78.8 % (42.8-82.8); PLATELET COUNT 263 10^3/uL (134-434); RBC 2.82 M/mm3 (4.00-5.60); RDW 16.1 % (11.9-15.9); WHITE BLOOD COUNT 10.4 K/mm3 (4.0-10.0)
[2022-10-16 11:35] LABS: BLOOD UREA NITROGEN 62.1 mg/dL (7-18); CALCIUM 8.7 mg/dL (8.5-10.1); MAGNESIUM 1.8 mg/dL (1.8-2.4)
[2022-10-16 11:36] LABS: ALBUMIN 2.5 g/dl (3.4-5.0)
[2022-10-16 11:39] LABS: CREATININE 3.4 mg/dL (0.55-1.3)
[2022-10-16 11:40] LABS: BILIRUBIN,TOTAL 0.5 mg/dL (0.2-1); TOT PROT 6.8 g/dl (6.4-8.2)
[2022-10-16] MEDS ORDERED: EPOETIN ALFA-EPBX 20,000 UNIT/ML VIAL SQ ONE (15:00)
[2022-10-16] MEDS ORDERED: IRON SUCROSE INJECTION 100 MG in SODIUM CHLORIDE 95 ML IVPB ONE (16:00)
[2022-10-16] MEDS: QUEtiapine FUMARATE 50 MG TABLET PO SCH (22:34)
[2022-10-16] MEDS: LIDOCAINE PATCH REMOVAL MC SCH (22:34)
[2022-10-16] MEDS: ATORVASTATIN CA 20 MG TABLET (FP) PO SCH (22:34)
[2022-10-17] MEDS: SODIUM BICARBONATE 650 MG TABLET PO SCH ×3 (06:21→21:33)
[2022-10-17] MEDS: DOCUSATE SODIUM 100 MG CAPSULE (FP) PO SCH ×3 (06:21→21:30)
[2022-10-17] MEDS: POLYETHYLENE GLYCOL (HEALTHYLAX) 3350 17 GM PACKET PO SCH (09:57)
[2022-10-17] MEDS: amLODIPine BESYLATE 10 MG TABLET (FP) PO SCH (09:57)
[2022-10-17] MEDS: MULTIVITAMINS (DAILY MVI) TABLET (FP) PO SCH (09:57)
[2022-10-17] MEDS: PANTOPRAZOLE 40 MG TABLET PO SCH (09:57)
[2022-10-17] MEDS: FOLIC ACID 1 MG TABLET (FP) PO SCH (09:57)
[2022-10-17] MEDS: TAMSULOSIN HCL 0.4 MG CAP PO SCH ×2 (09:57→21:31)
[2022-10-17] MEDS: levETIRAcetam 500 MG TABLET (FP) PO SCH ×2 (09:57→21:31)
[2022-10-17] MEDS: OLANZapine 5 MG TABLET PO SCH ×2 (09:57→21:33)
[2022-10-17] MEDS: CARVEDILOL 25 MG TABLET (FP) PO SCH ×2 (09:57→21:30)
[2022-10-17] MEDS: FERROUS SO4 325 MG TABLET (FP) PO SCH ×2 (09:57→21:31)
[2022-10-17 09:58] LABS: BASO % 0.5 % (0-2.0); EOS % 1.2 % (0-4.5); HEMATOCRIT 25.8 % (35.4-49); HEMOGLOBIN 8.4 GM/dL (11.7-16.9); LYMPH % 12.3 % (8-40); MCH 27.4 pg (25.7-33.7); MCHC 32.7 g/dl (32.0-35.9); MEAN CELL VOLUME 83.9 fl (80-96); MEAN PLT VOLUME 6.9 fl (7.5-11.1); MONO % 10.9 % (3.8-10.2); NEUT % 75.1 % (42.8-82.8); PLATELET COUNT 282 10^3/uL (134-434); RBC 3.08 M/mm3 (4.00-5.60); RDW 16.6 % (11.9-15.9); WHITE BLOOD COUNT 9.5 K/mm3 (4.0-10.0)
[2022-10-17] MEDS: LIDOCAINE 5% TOPICAL PATCH TP SCH (09:58)
[2022-10-17] MEDS: MINERAL OIL/PET HY-PHL TOPICAL OINTMENT 454 GM JAR TP SCH ×2 (09:58→21:30)
[2022-10-17 10:21] LABS: ALBUMIN 2.6 g/dl (3.4-5.0); BLOOD UREA NITROGEN 61.2 mg/dL (7-18); CALCIUM 8.8 mg/dL (8.5-10.1); MAGNESIUM 1.8 mg/dL (1.8-2.4)
[2022-10-17 10:22] LABS: CREATININE 3.4 mg/dL (0.55-1.3)
[2022-10-17 10:24] LABS: BILIRUBIN,TOTAL 0.3 mg/dL (0.2-1); TOT PROT 7.3 g/dl (6.4-8.2)
[2022-10-17] MEDS: LIDOCAINE PATCH REMOVAL MC SCH (21:31)
[2022-10-17] MEDS: QUEtiapine FUMARATE 50 MG TABLET PO SCH (21:32)
[2022-10-17] MEDS: ATORVASTATIN CA 20 MG TABLET (FP) PO SCH (21:32)
[2022-10-18] MEDS: SODIUM BICARBONATE 650 MG TABLET PO SCH ×3 (05:37→21:47)
[2022-10-18] MEDS: DOCUSATE SODIUM 100 MG CAPSULE (FP) PO SCH ×3 (05:37→21:47)
[2022-10-18 09:29] LABS: BASO % 0.8 % (0-2.0); EOS % 3.5 % (0-4.5); HEMATOCRIT 26.6 % (35.4-49); HEMOGLOBIN 8.4 GM/dL (11.7-16.9); MCH 26.4 pg (25.7-33.7); MCHC 31.6 g/dl (32.0-35.9); MEAN CELL VOLUME 83.7 fl (80-96); MEAN PLT VOLUME 6.9 fl (7.5-11.1); MONO % 11.1 % (3.8-10.2); NEUT % 67.6 % (42.8-82.8); PLATELET COUNT 264 10^3/uL (134-434); RBC 3.17 M/mm3 (4.00-5.60); RDW 16.5 % (11.9-15.9); WHITE BLOOD COUNT 6.5 K/mm3 (4.0-10.0)
[2022-10-18] MEDS: MULTIVITAMINS (DAILY MVI) TABLET (FP) PO SCH (09:47)
[2022-10-18] MEDS: TAMSULOSIN HCL 0.4 MG CAP PO SCH ×2 (09:47→21:48)
[2022-10-18] MEDS: OLANZapine 5 MG TABLET PO SCH ×2 (09:48→21:45)
[2022-10-18] MEDS: FERROUS SO4 325 MG TABLET (FP) PO SCH ×2 (09:48→21:47)
[2022-10-18] MEDS: CARVEDILOL 25 MG TABLET (FP) PO SCH ×2 (09:48→21:46)
[2022-10-18] MEDS: PANTOPRAZOLE 40 MG TABLET PO SCH (09:48)
[2022-10-18] MEDS: amLODIPine BESYLATE 10 MG TABLET (FP) PO SCH (09:48)
[2022-10-18] MEDS: FOLIC ACID 1 MG TABLET (FP) PO SCH (09:48)
[2022-10-18] MEDS: LIDOCAINE 5% TOPICAL PATCH TP SCH (09:48)
[2022-10-18] MEDS: levETIRAcetam 500 MG TABLET (FP) PO SCH ×2 (09:48→21:47)
[2022-10-18] MEDS: POLYETHYLENE GLYCOL (HEALTHYLAX) 3350 17 GM PACKET PO SCH (09:48)
[2022-10-18 09:52] LABS: ALBUMIN 2.6 g/dl (3.4-5.0); BLOOD UREA NITROGEN 61.6 mg/dL (7-18); CALCIUM 8.9 mg/dL (8.5-10.1); MAGNESIUM 1.9 mg/dL (1.8-2.4)
[2022-10-18 09:55] LABS: CREATININE 3.4 mg/dL (0.55-1.3)
[2022-10-18 09:56] LABS: BILIRUBIN,TOTAL 0.5 mg/dL (0.2-1)
[2022-10-18 09:57] LABS: TOT PROT 7.1 g/dl (6.4-8.2)
[2022-10-18] MEDS: MINERAL OIL/PET HY-PHL TOPICAL OINTMENT 454 GM JAR TP SCH ×2 (10:17→21:51)
[2022-10-18] MEDS: ATORVASTATIN CA 20 MG TABLET (FP) PO SCH (21:46)
[2022-10-18] MEDS: QUEtiapine FUMARATE 50 MG TABLET PO SCH (21:46)
[2022-10-18] MEDS: LIDOCAINE PATCH REMOVAL MC SCH (23:38)
[2022-10-19] MEDS: DOCUSATE SODIUM 100 MG CAPSULE (FP) PO SCH ×3 (06:36→22:05)
[2022-10-19] MEDS: SODIUM BICARBONATE 650 MG TABLET PO SCH ×3 (06:36→22:08)
[2022-10-19] MEDS: TAMSULOSIN HCL 0.4 MG CAP PO SCH ×2 (08:55→22:07)
[2022-10-19] MEDS: levETIRAcetam 500 MG TABLET (FP) PO SCH ×2 (09:39→22:07)
[2022-10-19] MEDS: FERROUS SO4 325 MG TABLET (FP) PO SCH ×2 (09:39→22:07)
[2022-10-19] MEDS: OLANZapine 5 MG TABLET PO SCH ×2 (09:39→22:09)
[2022-10-19] MEDS: PANTOPRAZOLE 40 MG TABLET PO SCH (09:39)
[2022-10-19] MEDS: amLODIPine BESYLATE 10 MG TABLET (FP) PO SCH (09:39)
[2022-10-19] MEDS: CARVEDILOL 25 MG TABLET (FP) PO SCH ×2 (09:39→22:06)
[2022-10-19] MEDS: FOLIC ACID 1 MG TABLET (FP) PO SCH (09:39)
[2022-10-19] MEDS: MULTIVITAMINS (DAILY MVI) TABLET (FP) PO SCH (09:39)
[2022-10-19] MEDS: MINERAL OIL/PET HY-PHL TOPICAL OINTMENT 454 GM JAR TP SCH ×2 (09:45→22:05)
[2022-10-19] MEDS: POLYETHYLENE GLYCOL (HEALTHYLAX) 3350 17 GM PACKET PO SCH (11:26)
[2022-10-19] MEDS: LIDOCAINE 5% TOPICAL PATCH TP SCH (11:26)
[2022-10-19] MEDS: LIDOCAINE PATCH REMOVAL MC SCH (22:07)
[2022-10-19] MEDS: ATORVASTATIN CA 20 MG TABLET (FP) PO SCH (22:08)
[2022-10-19] MEDS: QUEtiapine FUMARATE 50 MG TABLET PO SCH (22:08)
[2022-10-20] MEDS: DOCUSATE SODIUM 100 MG CAPSULE (FP) PO SCH ×3 (05:21→22:38)
[2022-10-20] MEDS: SODIUM BICARBONATE 650 MG TABLET PO SCH ×3 (05:21→22:38)
[2022-10-20] MEDS: levETIRAcetam 500 MG TABLET (FP) PO SCH ×2 (09:26→22:37)
[2022-10-20] MEDS: TAMSULOSIN HCL 0.4 MG CAP PO SCH ×2 (09:26→22:38)
[2022-10-20] MEDS: FOLIC ACID 1 MG TABLET (FP) PO SCH (09:26)
[2022-10-20] MEDS: FERROUS SO4 325 MG TABLET (FP) PO SCH ×2 (09:26→22:35)
[2022-10-20] MEDS: PANTOPRAZOLE 40 MG TABLET PO SCH (09:26)
[2022-10-20] MEDS: POLYETHYLENE GLYCOL (HEALTHYLAX) 3350 17 GM PACKET PO SCH (09:26)
[2022-10-20] MEDS: CARVEDILOL 25 MG TABLET (FP) PO SCH ×2 (09:26→22:35)
[2022-10-20] MEDS: OLANZapine 5 MG TABLET PO SCH ×2 (09:26→22:35)
[2022-10-20] MEDS: MULTIVITAMINS (DAILY MVI) TABLET (FP) PO SCH (09:26)
[2022-10-20] MEDS: amLODIPine BESYLATE 10 MG TABLET (FP) PO SCH (09:26)
[2022-10-20] MEDS: LIDOCAINE 5% TOPICAL PATCH TP SCH (09:27)
[2022-10-20] MEDS: MINERAL OIL/PET HY-PHL TOPICAL OINTMENT 454 GM JAR TP SCH ×2 (09:27→22:48)
[2022-10-20 10:13] LABS: BASO % 0.9 % (0-2.0); EOS % 3.5 % (0-4.5); HEMATOCRIT 27.7 % (35.4-49); MCH 27.2 pg (25.7-33.7); MCHC 32.5 g/dl (32.0-35.9); MEAN CELL VOLUME 83.6 fl (80-96); MEAN PLT VOLUME 6.8 fl (7.5-11.1); MONO % 8.6 % (3.8-10.2); PLATELET COUNT 320 10^3/uL (134-434); RBC 3.32 M/mm3 (4.00-5.60); RDW 16.4 % (11.9-15.9); WHITE BLOOD COUNT 5.3 K/mm3 (4.0-10.0)
[2022-10-20 10:40] LABS: BLOOD UREA NITROGEN 66.9 mg/dL (7-18)
[2022-10-20 10:41] LABS: ALBUMIN 2.9 g/dl (3.4-5.0); MAGNESIUM 1.9 mg/dL (1.8-2.4)
[2022-10-20 10:42] LABS: BILIRUBIN,TOTAL 0.2 mg/dL (0.2-1); TOT PROT 7.6 g/dl (6.4-8.2)
[2022-10-20 10:44] LABS: CREATININE 3.7 mg/dL (0.55-1.3)
[2022-10-20] MEDS: ATORVASTATIN CA 20 MG TABLET (FP) PO SCH (22:37)
[2022-10-20] MEDS: QUEtiapine FUMARATE 50 MG TABLET PO SCH (22:37)
[2022-10-20] MEDS: LIDOCAINE PATCH REMOVAL MC SCH (22:48)
[2022-10-21] MEDS: DOCUSATE SODIUM 100 MG CAPSULE (FP) PO SCH ×3 (07:42→23:28)
[2022-10-21] MEDS: SODIUM BICARBONATE 650 MG TABLET PO SCH ×3 (07:43→23:27)
[2022-10-21] MEDS: OLANZapine 5 MG TABLET PO SCH ×2 (09:35→23:27)
[2022-10-21] MEDS: PANTOPRAZOLE 40 MG TABLET PO SCH (09:35)
[2022-10-21] MEDS: POLYETHYLENE GLYCOL (HEALTHYLAX) 3350 17 GM PACKET PO SCH (09:35)
[2022-10-21] MEDS: FOLIC ACID 1 MG TABLET (FP) PO SCH (09:35)
[2022-10-21] MEDS: TAMSULOSIN HCL 0.4 MG CAP PO SCH ×2 (09:35→23:28)
[2022-10-21] MEDS: levETIRAcetam 500 MG TABLET (FP) PO SCH ×2 (09:35→23:27)
[2022-10-21] MEDS: MULTIVITAMINS (DAILY MVI) TABLET (FP) PO SCH (09:35)
[2022-10-21] MEDS: LIDOCAINE 5% TOPICAL PATCH TP SCH (09:35)
[2022-10-21] MEDS: MINERAL OIL/PET HY-PHL TOPICAL OINTMENT 454 GM JAR TP SCH ×2 (09:35→23:34)
[2022-10-21] MEDS: FERROUS SO4 325 MG TABLET (FP) PO SCH ×2 (09:35→23:29)
[2022-10-21] MEDS: CARVEDILOL 25 MG TABLET (FP) PO SCH ×2 (09:35→23:28)
[2022-10-21] MEDS: amLODIPine BESYLATE 10 MG TABLET (FP) PO SCH (09:36)
[2022-10-21 10:08] LABS: BASO % 0.8 % (0-2.0); EOS % 3.7 % (0-4.5); HEMATOCRIT 26.2 % (35.4-49); HEMOGLOBIN 8.4 GM/dL (11.7-16.9); LYMPH % 24.8 % (8-40); MCH 26.8 pg (25.7-33.7); MEAN CELL VOLUME 83.7 fl (80-96); MEAN PLT VOLUME 6.7 fl (7.5-11.1); NEUT % 60.7 % (42.8-82.8); PLATELET COUNT 282 10^3/uL (134-434); RBC 3.13 M/mm3 (4.00-5.60); RDW 16.5 % (11.9-15.9); WHITE BLOOD COUNT 5.5 K/mm3 (4.0-10.0)
[2022-10-21 10:32] LABS: CALCIUM 8.5 mg/dL (8.5-10.1)
[2022-10-21 10:33] LABS: ALBUMIN 2.5 g/dl (3.4-5.0); BLOOD UREA NITROGEN 73.7 mg/dL (7-18)
[2022-10-21 10:36] LABS: CREATININE 3.6 mg/dL (0.55-1.3)
[2022-10-21 10:37] LABS: TOT PROT 6.9 g/dl (6.4-8.2)
[2022-10-21 10:38] LABS: BILIRUBIN,TOTAL 0.3 mg/dL (0.2-1)
[2022-10-21] MEDS: ATORVASTATIN CA 20 MG TABLET (FP) PO SCH (23:28)
[2022-10-21] MEDS: LIDOCAINE PATCH REMOVAL MC SCH (23:29)
[2022-10-21] MEDS: QUEtiapine FUMARATE 50 MG TABLET PO SCH (23:29)
[2022-10-22] MEDS: SODIUM BICARBONATE 650 MG TABLET PO SCH ×3 (05:36→21:17)
[2022-10-22] MEDS: DOCUSATE SODIUM 100 MG CAPSULE (FP) PO SCH ×3 (05:37→21:17)
[2022-10-22] MEDS: CARVEDILOL 25 MG TABLET (FP) PO SCH ×2 (09:49→21:18)
[2022-10-22] MEDS: FERROUS SO4 325 MG TABLET (FP) PO SCH ×2 (09:49→21:18)
[2022-10-22] MEDS: MULTIVITAMINS (DAILY MVI) TABLET (FP) PO SCH (09:49)
[2022-10-22] MEDS: amLODIPine BESYLATE 10 MG TABLET (FP) PO SCH (09:49)
[2022-10-22] MEDS: levETIRAcetam 500 MG TABLET (FP) PO SCH ×2 (09:49→21:18)
[2022-10-22] MEDS: FOLIC ACID 1 MG TABLET (FP) PO SCH (09:49)
[2022-10-22] MEDS: POLYETHYLENE GLYCOL (HEALTHYLAX) 3350 17 GM PACKET PO SCH (09:49)
[2022-10-22] MEDS: OLANZapine 5 MG TABLET PO SCH ×2 (09:49→21:17)
[2022-10-22] MEDS: LIDOCAINE 5% TOPICAL PATCH TP SCH (09:49)
[2022-10-22] MEDS: PANTOPRAZOLE 40 MG TABLET PO SCH (09:50)
[2022-10-22] MEDS: MINERAL OIL/PET HY-PHL TOPICAL OINTMENT 454 GM JAR TP SCH ×2 (09:50→21:22)
[2022-10-22] MEDS: TAMSULOSIN HCL 0.4 MG CAP PO SCH ×2 (09:50→21:17)
[2022-10-22] MEDS: ATORVASTATIN CA 20 MG TABLET (FP) PO SCH (21:17)
[2022-10-22] MEDS: QUEtiapine FUMARATE 50 MG TABLET PO SCH (21:17)
[2022-10-22] MEDS: LIDOCAINE PATCH REMOVAL MC SCH (21:20)
[2022-10-23] MEDS: DOCUSATE SODIUM 100 MG CAPSULE (FP) PO SCH ×3 (06:04→23:01)
[2022-10-23] MEDS: SODIUM BICARBONATE 650 MG TABLET PO SCH ×3 (06:05→23:01)
[2022-10-23] MEDS: PANTOPRAZOLE 40 MG TABLET PO SCH (10:23)
[2022-10-23] MEDS: CARVEDILOL 25 MG TABLET (FP) PO SCH ×2 (10:23→23:00)
[2022-10-23] MEDS: TAMSULOSIN HCL 0.4 MG CAP PO SCH ×2 (10:23→23:00)
[2022-10-23] MEDS: levETIRAcetam 500 MG TABLET (FP) PO SCH ×2 (10:23→23:01)
[2022-10-23] MEDS: FOLIC ACID 1 MG TABLET (FP) PO SCH (10:23)
[2022-10-23] MEDS: OLANZapine 5 MG TABLET PO SCH ×2 (10:23→23:00)
[2022-10-23] MEDS: amLODIPine BESYLATE 10 MG TABLET (FP) PO SCH (10:23)
[2022-10-23] MEDS: FERROUS SO4 325 MG TABLET (FP) PO SCH ×2 (10:23→23:00)
[2022-10-23] MEDS: MINERAL OIL/PET HY-PHL TOPICAL OINTMENT 454 GM JAR TP SCH ×2 (10:24→23:01)
[2022-10-23] MEDS: POLYETHYLENE GLYCOL (HEALTHYLAX) 3350 17 GM PACKET PO SCH (10:24)
[2022-10-23] MEDS: LIDOCAINE 5% TOPICAL PATCH TP SCH (10:24)
[2022-10-23] MEDS: MULTIVITAMINS (DAILY MVI) TABLET (FP) PO SCH (10:25)
[2022-10-23 11:10] LABS: BASO % 0.6 % (0-2.0); EOS % 2.6 % (0-4.5); HEMATOCRIT 25.6 % (35.4-49); HEMOGLOBIN 8.4 GM/dL (11.7-16.9); LYMPH % 15.2 % (8-40); MCH 27.1 pg (25.7-33.7); MCHC 32.9 g/dl (32.0-35.9); MEAN CELL VOLUME 82.6 fl (80-96); MEAN PLT VOLUME 6.7 fl (7.5-11.1); MONO % 8.2 % (3.8-10.2); NEUT % 73.4 % (42.8-82.8); PLATELET COUNT 341 10^3/uL (134-434); RDW 17.3 % (11.9-15.9); WHITE BLOOD COUNT 8.3 K/mm3 (4.0-10.0)
[2022-10-23 11:44] LABS: ALBUMIN 2.6 g/dl (3.4-5.0); CALCIUM 8.7 mg/dL (8.5-10.1)
[2022-10-23 11:45] LABS: BLOOD UREA NITROGEN 77.5 mg/dL (7-18); MAGNESIUM 1.9 mg/dL (1.8-2.4)
[2022-10-23 11:48] LABS: CREATININE 3.4 mg/dL (0.55-1.3)
[2022-10-23 11:49] LABS: BILIRUBIN,TOTAL 0.2 mg/dL (0.2-1); TOT PROT 6.7 g/dl (6.4-8.2)
[2022-10-23] MEDS: QUEtiapine FUMARATE 50 MG TABLET PO SCH (22:59)
[2022-10-23] MEDS: LIDOCAINE PATCH REMOVAL MC SCH (23:01)
[2022-10-23] MEDS: ATORVASTATIN CA 20 MG TABLET (FP) PO SCH (23:01)
[2022-10-24] MEDS: SODIUM BICARBONATE 650 MG TABLET PO SCH ×3 (05:50→23:04)
[2022-10-24] MEDS: DOCUSATE SODIUM 100 MG CAPSULE (FP) PO SCH ×3 (05:50→23:03)
[2022-10-24] MEDS: CARVEDILOL 25 MG TABLET (FP) PO SCH ×2 (09:17→23:03)
[2022-10-24] MEDS: amLODIPine BESYLATE 10 MG TABLET (FP) PO SCH (09:17)
[2022-10-24] MEDS: MULTIVITAMINS (DAILY MVI) TABLET (FP) PO SCH (09:17)
[2022-10-24] MEDS: ACETAMINOPHEN 500 MG TABLET (FP) PO PRN (09:17)
[2022-10-24] MEDS: levETIRAcetam 500 MG TABLET (FP) PO SCH ×2 (09:18→23:04)
[2022-10-24] MEDS: TAMSULOSIN HCL 0.4 MG CAP PO SCH ×2 (09:18→23:01)
[2022-10-24] MEDS: OLANZapine 5 MG TABLET PO SCH ×2 (09:18→23:03)
[2022-10-24] MEDS: FERROUS SO4 325 MG TABLET (FP) PO SCH ×2 (09:18→23:03)
[2022-10-24] MEDS: FOLIC ACID 1 MG TABLET (FP) PO SCH (09:18)
[2022-10-24] MEDS: LIDOCAINE 5% TOPICAL PATCH TP SCH (09:21)
[2022-10-24] MEDS: PANTOPRAZOLE 40 MG TABLET PO SCH (09:21)
[2022-10-24] MEDS: POLYETHYLENE GLYCOL (HEALTHYLAX) 3350 17 GM PACKET PO SCH (09:21)
[2022-10-24] MEDS: MINERAL OIL/PET HY-PHL TOPICAL OINTMENT 454 GM JAR TP SCH ×2 (09:21→23:02)
[2022-10-24 19:51] LABS: ALBUMIN 2.8 g/dl (3.4-5.0); CALCIUM 8.5 mg/dL (8.5-10.1)
[2022-10-24 19:52] LABS: BLOOD UREA NITROGEN 76.4 mg/dL (7-18); MAGNESIUM 1.9 mg/dL (1.8-2.4)
[2022-10-24 19:54] LABS: CREATININE 3.3 mg/dL (0.55-1.3)
[2022-10-24 19:55] LABS: BILIRUBIN,TOTAL 0.2 mg/dL (0.2-1); TOT PROT 7.4 g/dl (6.4-8.2)
[2022-10-24 21:58] LABS: BASO % 0.9 % (0-2.0); EOS % 5.4 % (0-4.5); HEMATOCRIT 25.8 % (35.4-49); HEMOGLOBIN 8.3 GM/dL (11.7-16.9); MCH 26.9 pg (25.7-33.7); MCHC 32.1 g/dl (32.0-35.9); MEAN CELL VOLUME 83.7 fl (80-96); MEAN PLT VOLUME 7.1 fl (7.5-11.1); MONO % 9.3 % (3.8-10.2); NEUT % 55.4 % (42.8-82.8); PLATELET COUNT 319 10^3/uL (134-434); RBC 3.08 M/mm3 (4.00-5.60); RDW 17.3 % (11.9-15.9); WHITE BLOOD COUNT 5.5 K/mm3 (4.0-10.0)
[2022-10-24] MEDS: ATORVASTATIN CA 20 MG TABLET (FP) PO SCH (23:01)
[2022-10-24] MEDS: QUEtiapine FUMARATE 50 MG TABLET PO SCH (23:02)
[2022-10-24] MEDS: LIDOCAINE PATCH REMOVAL MC SCH (23:04)
[2022-10-25] MEDS: DOCUSATE SODIUM 100 MG CAPSULE (FP) PO SCH ×3 (07:11→22:01)
[2022-10-25] MEDS: SODIUM BICARBONATE 650 MG TABLET PO SCH ×3 (07:11→22:00)
[2022-10-25] MEDS: LIDOCAINE 5% TOPICAL PATCH TP SCH (10:16)
[2022-10-25] MEDS: POLYETHYLENE GLYCOL (HEALTHYLAX) 3350 17 GM PACKET PO SCH (10:16)
[2022-10-25] MEDS: OLANZapine 5 MG TABLET PO SCH ×2 (10:16→22:03)
[2022-10-25] MEDS: PANTOPRAZOLE 40 MG TABLET PO SCH (10:16)
[2022-10-25] MEDS: TAMSULOSIN HCL 0.4 MG CAP PO SCH ×2 (10:16→22:03)
[2022-10-25] MEDS: MULTIVITAMINS (DAILY MVI) TABLET (FP) PO SCH (10:16)
[2022-10-25] MEDS: levETIRAcetam 500 MG TABLET (FP) PO SCH ×2 (10:16→22:03)
[2022-10-25] MEDS: FERROUS SO4 325 MG TABLET (FP) PO SCH ×2 (10:16→22:01)
[2022-10-25] MEDS: CARVEDILOL 25 MG TABLET (FP) PO SCH ×2 (10:16→22:03)
[2022-10-25] MEDS: FOLIC ACID 1 MG TABLET (FP) PO SCH (10:16)
[2022-10-25] MEDS: MINERAL OIL/PET HY-PHL TOPICAL OINTMENT 454 GM JAR TP SCH ×2 (10:16→22:03)
[2022-10-25] MEDS: amLODIPine BESYLATE 10 MG TABLET (FP) PO SCH (10:17)
[2022-10-25 10:24] LABS: BASO % 1.2 % (0-2.0); EOS % 4.9 % (0-4.5); HEMATOCRIT 25.8 % (35.4-49); HEMOGLOBIN 8.4 GM/dL (11.7-16.9); LYMPH % 20.6 % (8-40); MCH 26.9 pg (25.7-33.7); MCHC 32.4 g/dl (32.0-35.9); MEAN CELL VOLUME 83.2 fl (80-96); MONO % 6.1 % (3.8-10.2); NEUT % 67.2 % (42.8-82.8); PLATELET COUNT 366 10^3/uL (134-434); RBC 3.11 M/mm3 (4.00-5.60); RDW 17.1 % (11.9-15.9); WHITE BLOOD COUNT 6.5 K/mm3 (4.0-10.0)
[2022-10-25 11:09] LABS: CHLORIDE 105 mmol/L (98-107); SODIUM 136 mmol/L (136-145)
[2022-10-25 11:12] LABS: CALCIUM 8.6 mg/dL (8.5-10.1)
[2022-10-25 11:13] LABS: ALBUMIN 2.7 g/dl (3.4-5.0); BLOOD UREA NITROGEN 74.2 mg/dL (7-18); CO2 23 mmol/L (21-32); GLUCOSE,RANDOM 75 mg/dL (74-106); MAGNESIUM 1.9 mg/dL (1.8-2.4)
[2022-10-25 11:16] LABS: CREATININE 3.1 mg/dL (0.55-1.3); SGOT/AST 73 U/L (15-37); SGPT/ALT 61 U/L (13-61)
[2022-10-25 11:18] LABS: BILIRUBIN,TOTAL 0.4 mg/dL (0.2-1); TOT PROT 7.3 g/dl (6.4-8.2)
[2022-10-25 11:19] LABS: ALK PHOS 68 U/L (45-117)
[2022-10-25 11:22] LABS: ANION GAP 8 MMOL/L (8-16)
[2022-10-25] MEDS ORDERED: SODIUM ZIRCONIUM CYCLOSILICATE (LOKELMA) 5 GM PACKET PO ONE (13:00)
[2022-10-25] MEDS ORDERED: SODIUM ZIRCONIUM CYCLOSILICATE (LOKELMA) 10 GM PACKET PO ONE (13:45)
[2022-10-25 18:08] LABS: FREE KAPPA,SERUM 229.8 mg/L (3.3-19.4)
[2022-10-25] MEDS: QUEtiapine FUMARATE 50 MG TABLET PO SCH (22:00)
[2022-10-25] MEDS: ATORVASTATIN CA 20 MG TABLET (FP) PO SCH (22:03)
[2022-10-25] MEDS: LIDOCAINE PATCH REMOVAL MC SCH (22:04)
[2022-10-26] MEDS: DOCUSATE SODIUM 100 MG CAPSULE (FP) PO SCH ×3 (06:33→21:14)
[2022-10-26] MEDS: SODIUM BICARBONATE 650 MG TABLET PO SCH ×3 (06:33→21:14)
[2022-10-26] MEDS: OLANZapine 5 MG TABLET PO SCH ×2 (09:07→21:14)
[2022-10-26] MEDS: FERROUS SO4 325 MG TABLET (FP) PO SCH ×2 (09:08→21:14)
[2022-10-26] MEDS: CARVEDILOL 25 MG TABLET (FP) PO SCH ×2 (09:08→21:14)
[2022-10-26] MEDS: POLYETHYLENE GLYCOL (HEALTHYLAX) 3350 17 GM PACKET PO SCH (09:08)
[2022-10-26] MEDS: levETIRAcetam 500 MG TABLET (FP) PO SCH ×2 (09:08→21:14)
[2022-10-26] MEDS: TAMSULOSIN HCL 0.4 MG CAP PO SCH ×2 (09:08→21:14)
[2022-10-26] MEDS: amLODIPine BESYLATE 10 MG TABLET (FP) PO SCH (09:08)
[2022-10-26] MEDS: FOLIC ACID 1 MG TABLET (FP) PO SCH (09:08)
[2022-10-26] MEDS: LIDOCAINE 5% TOPICAL PATCH TP SCH (09:08)
[2022-10-26] MEDS: PANTOPRAZOLE 40 MG TABLET PO SCH (09:08)
[2022-10-26] MEDS: MULTIVITAMINS (DAILY MVI) TABLET (FP) PO SCH (09:09)
[2022-10-26] MEDS: MINERAL OIL/PET HY-PHL TOPICAL OINTMENT 454 GM JAR TP SCH ×2 (09:12→21:14)
[2022-10-26] MEDS: SODIUM ZIRCONIUM CYCLOSILICATE (LOKELMA) 10 GM PACKET PO SCH (09:12)
[2022-10-26 11:13] LABS: BASO % 0.8 % (0-2.0); EOS % 4.6 % (0-4.5); HEMATOCRIT 26.2 % (35.4-49); HEMOGLOBIN 8.6 GM/dL (11.7-16.9); MCH 27.4 pg (25.7-33.7); MEAN PLT VOLUME 6.5 fl (7.5-11.1); MONO % 8.7 % (3.8-10.2); NEUT % 65.9 % (42.8-82.8); PLATELET COUNT 311 10^3/uL (134-434); RBC 3.16 M/mm3 (4.00-5.60); RDW 16.9 % (11.9-15.9); WHITE BLOOD COUNT 5.3 K/mm3 (4.0-10.0)
[2022-10-26 11:44] LABS: ALBUMIN 2.6 g/dl (3.4-5.0); BLOOD UREA NITROGEN 80.4 mg/dL (7-18); CALCIUM 8.5 mg/dL (8.5-10.1); MAGNESIUM 1.7 mg/dL (1.8-2.4)
[2022-10-26 11:46] LABS: CREATININE 3.4 mg/dL (0.55-1.3)
[2022-10-26 11:47] LABS: BILIRUBIN,TOTAL 0.2 mg/dL (0.2-1); TOT PROT 6.8 g/dl (6.4-8.2)
[2022-10-26] MEDS: QUEtiapine FUMARATE 50 MG TABLET PO SCH (21:13)
[2022-10-26] MEDS: ATORVASTATIN CA 20 MG TABLET (FP) PO SCH (21:14)
[2022-10-26] MEDS: LIDOCAINE PATCH REMOVAL MC SCH (21:14)
[2022-10-27] MEDS: SODIUM BICARBONATE 650 MG TABLET PO SCH ×3 (07:13→23:32)
[2022-10-27] MEDS: DOCUSATE SODIUM 100 MG CAPSULE (FP) PO SCH ×3 (07:14→23:32)
[2022-10-27] MEDS: FOLIC ACID 1 MG TABLET (FP) PO SCH (09:51)
[2022-10-27] MEDS: levETIRAcetam 500 MG TABLET (FP) PO SCH ×2 (09:51→23:32)
[2022-10-27] MEDS: CARVEDILOL 25 MG TABLET (FP) PO SCH ×2 (09:51→23:32)
[2022-10-27] MEDS: FERROUS SO4 325 MG TABLET (FP) PO SCH ×2 (09:51→23:32)
[2022-10-27] MEDS: MULTIVITAMINS (DAILY MVI) TABLET (FP) PO SCH (09:51)
[2022-10-27] MEDS: LIDOCAINE 5% TOPICAL PATCH TP SCH (09:52)
[2022-10-27] MEDS: TAMSULOSIN HCL 0.4 MG CAP PO SCH ×2 (09:52→23:31)
[2022-10-27] MEDS: amLODIPine BESYLATE 10 MG TABLET (FP) PO SCH (09:52)
[2022-10-27] MEDS: MINERAL OIL/PET HY-PHL TOPICAL OINTMENT 454 GM JAR TP SCH ×2 (09:52→23:32)
[2022-10-27] MEDS: OLANZapine 5 MG TABLET PO SCH ×2 (09:52→23:31)
[2022-10-27] MEDS: POLYETHYLENE GLYCOL (HEALTHYLAX) 3350 17 GM PACKET PO SCH (09:52)
[2022-10-27] MEDS: SODIUM ZIRCONIUM CYCLOSILICATE (LOKELMA) 10 GM PACKET PO SCH (09:52)
[2022-10-27] MEDS: PANTOPRAZOLE 40 MG TABLET PO SCH (09:52)
[2022-10-27] MEDS: QUEtiapine FUMARATE 50 MG TABLET PO SCH (23:31)
[2022-10-27] MEDS: LIDOCAINE PATCH REMOVAL MC SCH (23:33)
[2022-10-27] MEDS: ATORVASTATIN CA 20 MG TABLET (FP) PO SCH (23:33)
[2022-10-28] MEDS: SODIUM BICARBONATE 650 MG TABLET PO SCH ×3 (05:54→22:37)
[2022-10-28] MEDS: DOCUSATE SODIUM 100 MG CAPSULE (FP) PO SCH ×3 (05:54→22:36)
[2022-10-28] MEDS: TAMSULOSIN HCL 0.4 MG CAP PO SCH ×2 (08:24→22:37)
[2022-10-28] MEDS: CARVEDILOL 25 MG TABLET (FP) PO SCH ×2 (09:24→22:37)
[2022-10-28] MEDS: amLODIPine BESYLATE 10 MG TABLET (FP) PO SCH (09:24)
[2022-10-28] MEDS: POLYETHYLENE GLYCOL (HEALTHYLAX) 3350 17 GM PACKET PO SCH (09:24)
[2022-10-28] MEDS: FERROUS SO4 325 MG TABLET (FP) PO SCH ×2 (09:24→22:36)
[2022-10-28] MEDS: levETIRAcetam 500 MG TABLET (FP) PO SCH ×2 (09:24→22:37)
[2022-10-28] MEDS: PANTOPRAZOLE 40 MG TABLET PO SCH (09:24)
[2022-10-28] MEDS: SODIUM ZIRCONIUM CYCLOSILICATE (LOKELMA) 10 GM PACKET PO SCH (09:24)
[2022-10-28] MEDS: MULTIVITAMINS (DAILY MVI) TABLET (FP) PO SCH (09:24)
[2022-10-28] MEDS: OLANZapine 5 MG TABLET PO SCH ×2 (09:24→22:36)
[2022-10-28] MEDS: MINERAL OIL/PET HY-PHL TOPICAL OINTMENT 454 GM JAR TP SCH ×2 (09:24→22:35)
[2022-10-28] MEDS: FOLIC ACID 1 MG TABLET (FP) PO SCH (09:24)
[2022-10-28] MEDS: LIDOCAINE 5% TOPICAL PATCH TP SCH (09:25)
[2022-10-28] MEDS: ATORVASTATIN CA 20 MG TABLET (FP) PO SCH (22:36)
[2022-10-28] MEDS: LIDOCAINE PATCH REMOVAL MC SCH (22:37)
[2022-10-28] MEDS: QUEtiapine FUMARATE 50 MG TABLET PO SCH (22:37)
[2022-10-29] MEDS: DOCUSATE SODIUM 100 MG CAPSULE (FP) PO SCH ×3 (06:17→22:31)
[2022-10-29] MEDS: SODIUM BICARBONATE 650 MG TABLET PO SCH ×3 (06:17→22:31)
[2022-10-29] MEDS: MULTIVITAMINS (DAILY MVI) TABLET (FP) PO SCH (09:06)
[2022-10-29] MEDS: TAMSULOSIN HCL 0.4 MG CAP PO SCH ×2 (09:06→22:31)
[2022-10-29] MEDS: OLANZapine 5 MG TABLET PO SCH ×2 (09:06→22:32)
[2022-10-29] MEDS: POLYETHYLENE GLYCOL (HEALTHYLAX) 3350 17 GM PACKET PO SCH (09:06)
[2022-10-29] MEDS: CARVEDILOL 25 MG TABLET (FP) PO SCH ×2 (09:06→22:31)
[2022-10-29] MEDS: FERROUS SO4 325 MG TABLET (FP) PO SCH ×2 (09:07→22:31)
[2022-10-29] MEDS: levETIRAcetam 500 MG TABLET (FP) PO SCH ×2 (09:07→22:31)
[2022-10-29] MEDS: FOLIC ACID 1 MG TABLET (FP) PO SCH (09:07)
[2022-10-29] MEDS: PANTOPRAZOLE 40 MG TABLET PO SCH (09:07)
[2022-10-29] MEDS: amLODIPine BESYLATE 10 MG TABLET (FP) PO SCH (09:07)
[2022-10-29] MEDS: LIDOCAINE 5% TOPICAL PATCH TP SCH (09:07)
[2022-10-29] MEDS: SODIUM ZIRCONIUM CYCLOSILICATE (LOKELMA) 10 GM PACKET PO SCH (09:07)
[2022-10-29] MEDS: MINERAL OIL/PET HY-PHL TOPICAL OINTMENT 454 GM JAR TP SCH ×2 (09:08→22:33)
[2022-10-29] MEDS: ATORVASTATIN CA 20 MG TABLET (FP) PO SCH (22:31)
[2022-10-29] MEDS: QUEtiapine FUMARATE 50 MG TABLET PO SCH (22:32)
[2022-10-29] MEDS: LIDOCAINE PATCH REMOVAL MC SCH (22:33)
[2022-10-30] MEDS: SODIUM BICARBONATE 650 MG TABLET PO SCH ×3 (06:31→21:41)
[2022-10-30] MEDS: DOCUSATE SODIUM 100 MG CAPSULE (FP) PO SCH ×3 (06:31→21:38)
[2022-10-30] MEDS: TAMSULOSIN HCL 0.4 MG CAP PO SCH ×2 (08:30→21:41)
[2022-10-30 09:43] LABS: BASO % 1.2 % (0-2.0); EOS % 4.8 % (0-4.5); HEMATOCRIT 28.2 % (35.4-49); HEMOGLOBIN 9.2 GM/dL (11.7-16.9); LYMPH % 29.4 % (8-40); MCH 27.2 pg (25.7-33.7); MCHC 32.7 g/dl (32.0-35.9); MEAN CELL VOLUME 83.1 fl (80-96); MONO % 8.8 % (3.8-10.2); NEUT % 55.8 % (42.8-82.8); PLATELET COUNT 309 10^3/uL (134-434); RBC 3.39 M/mm3 (4.00-5.60); RDW 17.4 % (11.9-15.9); WHITE BLOOD COUNT 5.1 K/mm3 (4.0-10.0)
[2022-10-30] MEDS: PANTOPRAZOLE 40 MG TABLET PO SCH (09:44)
[2022-10-30] MEDS: amLODIPine BESYLATE 10 MG TABLET (FP) PO SCH (09:44)
[2022-10-30] MEDS: FERROUS SO4 325 MG TABLET (FP) PO SCH ×2 (09:44→21:39)
[2022-10-30] MEDS: FOLIC ACID 1 MG TABLET (FP) PO SCH (09:44)
[2022-10-30] MEDS: OLANZapine 5 MG TABLET PO SCH ×2 (09:44→21:39)
[2022-10-30] MEDS: levETIRAcetam 500 MG TABLET (FP) PO SCH ×2 (09:44→21:38)
[2022-10-30] MEDS: CARVEDILOL 25 MG TABLET (FP) PO SCH ×2 (09:44→21:37)
[2022-10-30] MEDS: MINERAL OIL/PET HY-PHL TOPICAL OINTMENT 454 GM JAR TP SCH ×2 (09:45→21:42)
[2022-10-30] MEDS: MULTIVITAMINS (DAILY MVI) TABLET (FP) PO SCH (09:45)
[2022-10-30] MEDS: LIDOCAINE 5% TOPICAL PATCH TP SCH (09:46)
[2022-10-30] MEDS: POLYETHYLENE GLYCOL (HEALTHYLAX) 3350 17 GM PACKET PO SCH (09:46)
[2022-10-30] MEDS: SODIUM ZIRCONIUM CYCLOSILICATE (LOKELMA) 10 GM PACKET PO SCH (09:46)
[2022-10-30 10:18] LABS: BILIRUBIN,TOTAL 0.4 mg/dL (0.2-1); BLOOD UREA NITROGEN 98.7 mg/dL (7-18); CALCIUM 8.9 mg/dL (8.5-10.1); CREATININE 3.4 mg/dL (0.55-1.3); MAGNESIUM 1.8 mg/dL (1.8-2.4); TOT PROT 7.4 g/dl (6.4-8.2)
[2022-10-30] MEDS ORDERED: EPOETIN ALFA-EPBX 10,000 UNIT/ML VIAL SQ ONE (14:00)
[2022-10-30] MEDS: ATORVASTATIN CA 20 MG TABLET (FP) PO SCH (21:37)
[2022-10-30] MEDS: QUEtiapine FUMARATE 50 MG TABLET PO SCH (21:40)
[2022-10-30] MEDS: LIDOCAINE PATCH REMOVAL MC SCH (21:41)
[2022-10-31] MEDS: DOCUSATE SODIUM 100 MG CAPSULE (FP) PO SCH ×3 (05:45→21:52)
[2022-10-31] MEDS: SODIUM BICARBONATE 650 MG TABLET PO SCH ×3 (05:45→21:52)
[2022-10-31] MEDS: TAMSULOSIN HCL 0.4 MG CAP PO SCH ×2 (08:52→21:50)
[2022-10-31] MEDS: FERROUS SO4 325 MG TABLET (FP) PO SCH ×2 (09:08→21:51)
[2022-10-31] MEDS: MULTIVITAMINS (DAILY MVI) TABLET (FP) PO SCH (09:08)
[2022-10-31] MEDS: MINERAL OIL/PET HY-PHL TOPICAL OINTMENT 454 GM JAR TP SCH ×2 (09:08→21:52)
[2022-10-31] MEDS: levETIRAcetam 500 MG TABLET (FP) PO SCH ×2 (09:08→21:50)
[2022-10-31] MEDS: OLANZapine 5 MG TABLET PO SCH ×2 (09:08→21:51)
[2022-10-31] MEDS: CARVEDILOL 25 MG TABLET (FP) PO SCH ×2 (09:08→21:51)
[2022-10-31] MEDS: amLODIPine BESYLATE 10 MG TABLET (FP) PO SCH (09:08)
[2022-10-31] MEDS: FOLIC ACID 1 MG TABLET (FP) PO SCH (09:08)
[2022-10-31] MEDS: PANTOPRAZOLE 40 MG TABLET PO SCH (09:08)
[2022-10-31] MEDS: POLYETHYLENE GLYCOL (HEALTHYLAX) 3350 17 GM PACKET PO SCH (09:09)
[2022-10-31] MEDS: SODIUM ZIRCONIUM CYCLOSILICATE (LOKELMA) 10 GM PACKET PO SCH (09:09)
[2022-10-31] MEDS: LIDOCAINE 5% TOPICAL PATCH TP SCH (09:43)
[2022-10-31] MEDS: QUEtiapine FUMARATE 50 MG TABLET PO SCH (21:51)
[2022-10-31] MEDS: ATORVASTATIN CA 20 MG TABLET (FP) PO SCH (21:52)
[2022-10-31] MEDS: LIDOCAINE PATCH REMOVAL MC SCH (21:52)
[2022-11-01] MEDS: DOCUSATE SODIUM 100 MG CAPSULE (FP) PO SCH ×3 (06:00→21:42)
[2022-11-01] MEDS: SODIUM BICARBONATE 650 MG TABLET PO SCH ×3 (06:00→21:42)
[2022-11-01] MEDS: TAMSULOSIN HCL 0.4 MG CAP PO SCH ×2 (08:25→21:43)
[2022-11-01] MEDS: FERROUS SO4 325 MG TABLET (FP) PO SCH ×2 (09:45→21:42)
[2022-11-01] MEDS: PANTOPRAZOLE 40 MG TABLET PO SCH (09:45)
[2022-11-01] MEDS: FOLIC ACID 1 MG TABLET (FP) PO SCH (09:45)
[2022-11-01] MEDS: POLYETHYLENE GLYCOL (HEALTHYLAX) 3350 17 GM PACKET PO SCH (09:45)
[2022-11-01] MEDS: OLANZapine 5 MG TABLET PO SCH ×2 (09:45→22:16)
[2022-11-01] MEDS: levETIRAcetam 500 MG TABLET (FP) PO SCH ×2 (09:45→21:42)
[2022-11-01] MEDS: MULTIVITAMINS (DAILY MVI) TABLET (FP) PO SCH (09:45)
[2022-11-01] MEDS: amLODIPine BESYLATE 10 MG TABLET (FP) PO SCH (09:45)
[2022-11-01] MEDS: CARVEDILOL 25 MG TABLET (FP) PO SCH ×2 (09:45→21:41)
[2022-11-01] MEDS: LIDOCAINE 5% TOPICAL PATCH TP SCH (09:46)
[2022-11-01] MEDS: SODIUM ZIRCONIUM CYCLOSILICATE (LOKELMA) 10 GM PACKET PO SCH (09:46)
[2022-11-01] MEDS: MINERAL OIL/PET HY-PHL TOPICAL OINTMENT 454 GM JAR TP SCH ×2 (09:47→21:45)
[2022-11-01 10:23] LABS: EOS % 3.2 % (0-4.5); LYMPH % 22.8 % (8-40); MCH 26.8 pg (25.7-33.7); MCHC 32.3 g/dl (32.0-35.9); MEAN CELL VOLUME 82.9 fl (80-96); MEAN PLT VOLUME 7.1 fl (7.5-11.1); MONO % 8.7 % (3.8-10.2); NEUT % 64.3 % (42.8-82.8); PLATELET COUNT 309 10^3/uL (134-434); RBC 3.37 M/mm3 (4.00-5.60); WHITE BLOOD COUNT 5.4 K/mm3 (4.0-10.0)
[2022-11-01 11:18] LABS: ALBUMIN 2.8 g/dl (3.4-5.0); BLOOD UREA NITROGEN 93.9 mg/dL (7-18); CALCIUM 9.1 mg/dL (8.5-10.1); MAGNESIUM 1.7 mg/dL (1.8-2.4)
[2022-11-01 11:21] LABS: CREATININE 3.1 mg/dL (0.55-1.3)
[2022-11-01 11:23] LABS: BILIRUBIN,TOTAL 0.2 mg/dL (0.2-1); TOT PROT 7.1 g/dl (6.4-8.2)
[2022-11-01] MEDS ORDERED: MAGNESIUM OXIDE 400 MG TABLET (FP) PO ONE (11:30)
[2022-11-01 12:27] LABS: INR 1.12 (0.83-1.09); PROTHROMBIN TIME (PATIENT) 12.9 SEC (9.7-13.0)
[2022-11-01 12:29] LABS: ACTIVATED PTT 32.1 SECONDS (25.2-36.5)
[2022-11-01] MEDS: ATORVASTATIN CA 20 MG TABLET (FP) PO SCH (21:42)
[2022-11-01] MEDS: LIDOCAINE PATCH REMOVAL MC SCH (21:45)
[2022-11-01] MEDS: QUEtiapine FUMARATE 50 MG TABLET PO SCH (22:16)
[2022-11-02] MEDS: DOCUSATE SODIUM 100 MG CAPSULE (FP) PO SCH ×3 (06:40→23:35)
[2022-11-02] MEDS: SODIUM BICARBONATE 650 MG TABLET PO SCH ×3 (06:40→23:36)
[2022-11-02] MEDS: TAMSULOSIN HCL 0.4 MG CAP PO SCH ×2 (09:01→23:36)
[2022-11-02] MEDS: levETIRAcetam 500 MG TABLET (FP) PO SCH ×2 (10:07→23:36)
[2022-11-02] MEDS: FERROUS SO4 325 MG TABLET (FP) PO SCH ×2 (10:07→23:35)
[2022-11-02] MEDS: amLODIPine BESYLATE 10 MG TABLET (FP) PO SCH (10:07)
[2022-11-02] MEDS: FOLIC ACID 1 MG TABLET (FP) PO SCH (10:07)
[2022-11-02] MEDS: PANTOPRAZOLE 40 MG TABLET PO SCH (10:08)
[2022-11-02] MEDS: LIDOCAINE 5% TOPICAL PATCH TP SCH (10:08)
[2022-11-02] MEDS: CARVEDILOL 25 MG TABLET (FP) PO SCH ×2 (10:08→23:36)
[2022-11-02] MEDS: POLYETHYLENE GLYCOL (HEALTHYLAX) 3350 17 GM PACKET PO SCH (10:09)
[2022-11-02] MEDS: MINERAL OIL/PET HY-PHL TOPICAL OINTMENT 454 GM JAR TP SCH ×2 (10:09→23:37)
[2022-11-02] MEDS: SODIUM ZIRCONIUM CYCLOSILICATE (LOKELMA) 10 GM PACKET PO SCH (10:09)
[2022-11-02] MEDS: MULTIVITAMINS (DAILY MVI) TABLET (FP) PO SCH (10:10)
[2022-11-02] MEDS: OLANZapine 5 MG TABLET PO SCH ×2 (10:14→23:35)
[2022-11-02] MEDS ORDERED: SODIUM ZIRCONIUM CYCLOSILICATE (LOKELMA) 10 GM PACKET PO SCH (16:40)
[2022-11-02] MEDS: ATORVASTATIN CA 20 MG TABLET (FP) PO SCH (23:36)
[2022-11-02] MEDS: QUEtiapine FUMARATE 50 MG TABLET PO SCH (23:36)
[2022-11-02] MEDS: LIDOCAINE PATCH REMOVAL MC SCH (23:37)
[2022-11-03] MEDS: DOCUSATE SODIUM 100 MG CAPSULE (FP) PO SCH ×3 (07:22→21:25)
[2022-11-03] MEDS: SODIUM BICARBONATE 650 MG TABLET PO SCH ×3 (07:22→21:27)
[2022-11-03] MEDS: TAMSULOSIN HCL 0.4 MG CAP PO SCH ×2 (08:26→21:26)
[2022-11-03] MEDS: POLYETHYLENE GLYCOL (HEALTHYLAX) 3350 17 GM PACKET PO SCH (09:17)
[2022-11-03] MEDS: amLODIPine BESYLATE 10 MG TABLET (FP) PO SCH (09:17)
[2022-11-03] MEDS: CARVEDILOL 25 MG TABLET (FP) PO SCH ×2 (09:17→21:27)
[2022-11-03] MEDS: levETIRAcetam 500 MG TABLET (FP) PO SCH ×2 (09:17→21:27)
[2022-11-03] MEDS: LIDOCAINE 5% TOPICAL PATCH TP SCH (09:17)
[2022-11-03] MEDS: FOLIC ACID 1 MG TABLET (FP) PO SCH (09:17)
[2022-11-03] MEDS: SODIUM ZIRCONIUM CYCLOSILICATE (LOKELMA) 5 GM PACKET PO SCH (09:17)
[2022-11-03] MEDS: FERROUS SO4 325 MG TABLET (FP) PO SCH ×2 (09:17→21:26)
[2022-11-03] MEDS: OLANZapine 5 MG TABLET PO SCH ×2 (09:17→21:29)
[2022-11-03] MEDS: PANTOPRAZOLE 40 MG TABLET PO SCH (09:17)
[2022-11-03] MEDS: MULTIVITAMINS (DAILY MVI) TABLET (FP) PO SCH (09:17)
[2022-11-03] MEDS: MINERAL OIL/PET HY-PHL TOPICAL OINTMENT 454 GM JAR TP SCH ×2 (09:18→21:33)
[2022-11-03] MEDS: ATORVASTATIN CA 20 MG TABLET (FP) PO SCH (21:27)
[2022-11-03] MEDS: QUEtiapine FUMARATE 50 MG TABLET PO SCH (21:28)
[2022-11-03] MEDS: LIDOCAINE PATCH REMOVAL MC SCH (21:34)
[2022-11-04 06:28] VITALS: RESP 20
[2022-11-04] MEDS: DOCUSATE SODIUM 100 MG CAPSULE (FP) PO SCH ×3 (06:33→21:40)
[2022-11-04] MEDS: SODIUM BICARBONATE 650 MG TABLET PO SCH ×3 (06:34→21:39)
[2022-11-04] MEDS: TAMSULOSIN HCL 0.4 MG CAP PO SCH ×2 (08:45→21:42)
[2022-11-04] MEDS: POLYETHYLENE GLYCOL (HEALTHYLAX) 3350 17 GM PACKET PO SCH (09:17)
[2022-11-04] MEDS: OLANZapine 5 MG TABLET PO SCH ×2 (09:17→21:42)
[2022-11-04] MEDS: SODIUM ZIRCONIUM CYCLOSILICATE (LOKELMA) 5 GM PACKET PO SCH (09:17)
[2022-11-04] MEDS: FERROUS SO4 325 MG TABLET (FP) PO SCH ×2 (09:17→21:39)
[2022-11-04] MEDS: PANTOPRAZOLE 40 MG TABLET PO SCH (09:17)
[2022-11-04] MEDS: amLODIPine BESYLATE 10 MG TABLET (FP) PO SCH (09:17)
[2022-11-04] MEDS: MULTIVITAMINS (DAILY MVI) TABLET (FP) PO SCH (09:18)
[2022-11-04] MEDS: LIDOCAINE 5% TOPICAL PATCH TP SCH (09:18)
[2022-11-04] MEDS: levETIRAcetam 500 MG TABLET (FP) PO SCH ×2 (09:18→21:37)
[2022-11-04] MEDS: FOLIC ACID 1 MG TABLET (FP) PO SCH (09:18)
[2022-11-04] MEDS: MINERAL OIL/PET HY-PHL TOPICAL OINTMENT 454 GM JAR TP SCH ×2 (09:18→21:47)
[2022-11-04] MEDS: CARVEDILOL 25 MG TABLET (FP) PO SCH ×2 (09:18→21:39)
[2022-11-04] MEDS: ATORVASTATIN CA 20 MG TABLET (FP) PO SCH (21:39)
[2022-11-04] MEDS: QUEtiapine FUMARATE 50 MG TABLET PO SCH (21:41)
[2022-11-04] MEDS: LIDOCAINE PATCH REMOVAL MC SCH (21:47)
[2022-11-05] MEDS: DOCUSATE SODIUM 100 MG CAPSULE (FP) PO SCH ×3 (06:02→22:37)
[2022-11-05] MEDS: SODIUM BICARBONATE 650 MG TABLET PO SCH ×3 (06:03→22:39)
[2022-11-05] MEDS: TAMSULOSIN HCL 0.4 MG CAP PO SCH ×2 (08:46→22:39)
[2022-11-05] MEDS: PANTOPRAZOLE 40 MG TABLET PO SCH (09:37)
[2022-11-05] MEDS: OLANZapine 5 MG TABLET PO SCH ×2 (09:37→22:40)
[2022-11-05] MEDS: CARVEDILOL 25 MG TABLET (FP) PO SCH ×2 (09:37→22:39)
[2022-11-05] MEDS: levETIRAcetam 500 MG TABLET (FP) PO SCH ×2 (09:37→22:38)
[2022-11-05] MEDS: amLODIPine BESYLATE 10 MG TABLET (FP) PO SCH (09:37)
[2022-11-05] MEDS: FERROUS SO4 325 MG TABLET (FP) PO SCH ×2 (09:37→22:38)
[2022-11-05] MEDS: FOLIC ACID 1 MG TABLET (FP) PO SCH (09:37)
[2022-11-05] MEDS: SODIUM ZIRCONIUM CYCLOSILICATE (LOKELMA) 5 GM PACKET PO SCH (09:38)
[2022-11-05] MEDS: LIDOCAINE 5% TOPICAL PATCH TP SCH (09:38)
[2022-11-05] MEDS: MINERAL OIL/PET HY-PHL TOPICAL OINTMENT 454 GM JAR TP SCH ×2 (09:38→22:48)
[2022-11-05] MEDS: MULTIVITAMINS (DAILY MVI) TABLET (FP) PO SCH (09:38)
[2022-11-05] MEDS: POLYETHYLENE GLYCOL (HEALTHYLAX) 3350 17 GM PACKET PO SCH (09:38)
[2022-11-05 10:31] LABS: EOS % 2.8 % (0-4.5); HEMATOCRIT 29.4 % (35.4-49); HEMOGLOBIN 9.5 GM/dL (11.7-16.9); LYMPH % 19.8 % (8-40); MCH 26.8 pg (25.7-33.7); MCHC 32.4 g/dl (32.0-35.9); MEAN CELL VOLUME 82.7 fl (80-96); MEAN PLT VOLUME 7.3 fl (7.5-11.1); MONO % 7.1 % (3.8-10.2); NEUT % 69.3 % (42.8-82.8); PLATELET COUNT 330 10^3/uL (134-434); RBC 3.56 M/mm3 (4.00-5.60); RDW 17.3 % (11.9-15.9); WHITE BLOOD COUNT 6.9 K/mm3 (4.0-10.0)
[2022-11-05 11:06] LABS: BILIRUBIN,TOTAL 0.4 mg/dL (0.2-1)
[2022-11-05 11:07] LABS: CREATININE 3.7 mg/dL (0.55-1.3)
[2022-11-05 11:08] LABS: ALBUMIN 2.9 g/dl (3.4-5.0)
[2022-11-05 11:09] LABS: BLOOD UREA NITROGEN 99.8 mg/dL (7-18); MAGNESIUM 1.9 mg/dL (1.8-2.4); TOT PROT 7.4 g/dl (6.4-8.2)
[2022-11-05] MEDS: ATORVASTATIN CA 20 MG TABLET (FP) PO SCH (22:38)
[2022-11-05] MEDS: QUEtiapine FUMARATE 50 MG TABLET PO SCH (22:40)
[2022-11-05] MEDS: LIDOCAINE PATCH REMOVAL MC SCH (22:48)
[2022-11-06] MEDS: DOCUSATE SODIUM 100 MG CAPSULE (FP) PO SCH ×2 (06:31→14:00)
[2022-11-06] MEDS: SODIUM BICARBONATE 650 MG TABLET PO SCH ×2 (06:31→13:58)
[2022-11-06] MEDS: TAMSULOSIN HCL 0.4 MG CAP PO SCH (09:00)
[2022-11-06] MEDS: SODIUM ZIRCONIUM CYCLOSILICATE (LOKELMA) 5 GM PACKET PO SCH (10:14)
[2022-11-06] MEDS: POLYETHYLENE GLYCOL (HEALTHYLAX) 3350 17 GM PACKET PO SCH (10:14)
[2022-11-06] MEDS: FOLIC ACID 1 MG TABLET (FP) PO SCH (10:15)
[2022-11-06] MEDS: CARVEDILOL 25 MG TABLET (FP) PO SCH (10:15)
[2022-11-06] MEDS: FERROUS SO4 325 MG TABLET (FP) PO SCH (10:15)
[2022-11-06] MEDS: levETIRAcetam 500 MG TABLET (FP) PO SCH (10:15)
[2022-11-06] MEDS: LIDOCAINE 5% TOPICAL PATCH TP SCH (10:15)
[2022-11-06] MEDS: PANTOPRAZOLE 40 MG TABLET PO SCH (10:15)
[2022-11-06] MEDS: MULTIVITAMINS (DAILY MVI) TABLET (FP) PO SCH (10:15)
[2022-11-06] MEDS: OLANZapine 5 MG TABLET PO SCH (10:16)
[2022-11-06] MEDS: amLODIPine BESYLATE 10 MG TABLET (FP) PO SCH (10:39)
[2022-11-06] MEDS: MINERAL OIL/PET HY-PHL TOPICAL OINTMENT 454 GM JAR TP SCH (11:54)
[2022-11-06] MEDS ORDERED: SODIUM ZIRCONIUM CYCLOSILICATE (LOKELMA) 5 GM PACKET PO SCH (14:22)
[2022-11-06] MEDS ORDERED: EPOETIN ALFA 10,000 UNIT/1 ML VIAL SQ ONE (15:30)
[2022-11-06 15:38] VITALS: BP 153/87; PULSE 88; TEMP 97.8
== END 2022-11-06 18:40 | DRG 42 ==
LOC: JER 02:17 → JERBED 06:51 → J4S 22:49 → J5S 08-08 03:08 → J8W 08-20 15:57
PROVIDERS: ADMIT Internal Medicine; ATTEND Nurse Practitioner Family
DX: A52.3 Neurosyphilis, unspecified (principal); G93.41 Metabolic encephalopathy; N17.9 Acute kidney failure, unspecified; N39.0 Urinary tract infection, site not specified; Z68.42 Body mass index [BMI] 45.0-49.9, adult; N18.9 Chronic kidney disease, unspecified; I13.10 Hypertensive heart and chronic kidney disease without heart failure, with stage 1 through stage 4 chronic kidney disease, or unspecified chronic kidney disease; F20.9 Schizophrenia, unspecified; R31.0 Gross hematuria; D64.9 Anemia, unspecified; N40.0 Benign prostatic hyperplasia without lower urinary tract symptoms; F10.20 Alcohol dependence, uncomplicated; E66.01 Morbid (severe) obesity due to excess calories; I16.0 Hypertensive urgency; E78.5 Hyperlipidemia, unspecified; E11.9 Type 2 diabetes mellitus without complications; E87.5 Hyperkalemia; M25.562 Pain in left knee
CPT/HCPCS: 0241U-QW; 36415; 70450-TC; 71045-TC-FY; 71046-TC-FY; 73562-TC-LT-FY; 73610-TC-RT-FY; 73630-TC-RT-FY; 74176-TC; 76775-TC; 76856-TC; 80048; 80053; 81003; 82140; 82272; 82570; 82607; 82728; 82746; 82962; 83010; 83036; 83520; 83540; 83550; 83605; 83615; 83735; 83883; 84100; 84155; 84156; 84157; 84165; 84484; 85025; 85027; 85045; 85610; 85730; 86038; 86160; 86225; 86256; 86803; 86850; 86900; 86901; 87040; 87086; 87186; 87340; 87389; 93005; 93010; 97116-GP; 97162-GP; 99285-25; C9399; C9803-CS; J0885; J1644; J1756; Q5106; U0003; U0005

== ENCOUNTER 2023-02-05 11:42 | Inpatient (IN) | payer OTHER ==
[2023-02-05 12:33] VITALS: TEMP 97.7; BMI 27.9
[2023-02-05] MEDS ORDERED: LOPERAMIDE HCL 2 MG CAPSULE PO PRN (14:15)
[2023-02-05] MEDS ORDERED: LORazepam 1 MG TABLET PO PRN (14:15)
[2023-02-05] MEDS ORDERED: MAGNESIUM HYDROX 2400MG/30ML ORAL SUSPENSION 30 ML CUP PO PRN (14:15)
[2023-02-05] MEDS ORDERED: IBUPROFEN 400 MG TABLET (FP) PO PRN (14:15)
[2023-02-05] MEDS ORDERED: BENZOCAINE/MENTHOL (CHLORASEPTIC ) LOZENGE MM PRN (14:15)
[2023-02-05] MEDS ORDERED: METHOCARBAMOL 500 MG TABLET PO PRN (14:15)
[2023-02-05] MEDS ORDERED: BENZONATATE 200 MG CAPSULE PO PRN (14:15)
[2023-02-05] MEDS ORDERED: BISMUTH SUBSALICYLATE 524 MG/30 ML PO PRN (14:15)
[2023-02-05] MEDS ORDERED: ONDANSETRON *ODT* 4 MG TABLET SL PRN (14:15)
[2023-02-05] MEDS ORDERED: IBUPROFEN 600 MG TABLET (FP) PO PRN (14:15)
[2023-02-05] MEDS ORDERED: MAG HYDROX/AL HYDROX/SIMETH 30 ML UNIT-DOSE CUP PO PRN (14:15)
[2023-02-05] MEDS ORDERED: ACETAMINOPHEN 325 MG TABLET (FP) PO PRN (14:15)
[2023-02-05] MEDS ORDERED: POLYETHYLENE GLYCOL (HEALTHYLAX) 3350 17 GM PACKET PO PRN (14:15)
[2023-02-05] MEDS ORDERED: DICYCLOMINE HCL 10 MG CAPSULE PO PRN (14:15)
[2023-02-05] MEDS ORDERED: hydrOXYzine PAMOATE 25 MG CAPSULE (FP) PO PRN (14:15)
[2023-02-05] MEDS ORDERED: guaiFENesin 600 MG TABLET.ER (FP) PO PRN (14:15)
[2023-02-05] MEDS ORDERED: levETIRAcetam 500 MG TABLET (FP) PO ONE ×2 (15:15)
[2023-02-05] MEDS ORDERED: amLODIPine BESYLATE 10 MG TABLET (FP) PO ONE (15:15)
[2023-02-05] MEDS ORDERED: amLODIPine BESYLATE 5 MG TABLET (FP) ONE (15:16)
[2023-02-05] MEDS ORDERED: LORazepam 1 MG TABLET ONE (15:16)
[2023-02-05 15:52] VITALS: BP 189/89; PULSE 108; RESP 18
[2023-02-05 17:30] LABS: HEMATOCRIT 22.8 % (35.4-49); HEMOGLOBIN 7.7 GM/dL (11.7-16.9); MCH 27.1 pg (25.7-33.7); MCHC 33.7 g/dl (32.0-35.9); MEAN CELL VOLUME 80.2 fl (80-96); MEAN PLT VOLUME 6.4 fl (7.5-11.1); PLATELET COUNT 302 10^3/uL (134-434); RBC 2.85 M/mm3 (4.00-5.60)
[2023-02-05] MEDS: LORazepam 2 MG TABLET PO SCH ×2 (17:41→23:57)
[2023-02-05 17:54] LABS: CALCIUM 8.4 mg/dL (8.5-10.1)
[2023-02-05 17:55] LABS: ALBUMIN 3.1 g/dl (3.4-5.0); BLOOD UREA NITROGEN 86.1 mg/dL (7-18)
[2023-02-05 17:58] LABS: CREATININE 3.9 mg/dL (0.55-1.3)
[2023-02-05 18:00] LABS: BILIRUBIN,TOTAL 0.2 mg/dL (0.2-1); TOT PROT 7.6 g/dl (6.4-8.2)
[2023-02-05] MEDS ORDERED: MELATONIN 5 MG TABLETS PO SCH (22:00)
[2023-02-05] MEDS ORDERED: levETIRAcetam 500 MG TABLET (FP) PO SCH (22:00)
[2023-02-05] MEDS ORDERED: THIAMINE HCL 100 MG TABLET (FP) PO SCH (22:00)
[2023-02-06] MEDS ORDERED: PRENATAL VITAMINS W/ FOLIC ACID TABLET (FP) PO SCH (10:00)
[2023-02-06] MEDS ORDERED: amLODIPine BESYLATE 10 MG TABLET (FP) PO SCH (10:00)
[2023-02-06] MEDS ORDERED: FAMOTIDINE 10 MG TABLET PO SCH (10:00)
[2023-02-07] MEDS ORDERED: LORazepam 1 MG TABLET PO SCH (05:00)
[2023-02-08] MEDS ORDERED: LORazepam 0.5 MG TABLET PO PRN
[2023-02-09] MEDS ORDERED: LORazepam 0.5 MG TABLET PO ONE (05:00)
== END 2023-02-06 04:25 | disposition short-term general hospital (02) | DRG 774 ==
LOC: YASAS 11:42 → Y6N 15:08
PROVIDERS: ADMIT Allergy & Immunology; ATTEND Surgery
PROC: HZ2ZZZZ Detoxification Services for Substance Abuse Treatment (ICD-10-PCS; principal; 2023-02-05)
DX: F10.230 Alcohol dependence with withdrawal, uncomplicated (principal); F14.20 Cocaine dependence, uncomplicated; F41.9 Anxiety disorder, unspecified; G40.909 Epilepsy, unspecified, not intractable, without status epilepticus; I25.10 Atherosclerotic heart disease of native coronary artery without angina pectoris; I10 Essential (primary) hypertension; I25.2 Old myocardial infarction; K21.9 Gastro-esophageal reflux disease without esophagitis; Z87.891 Personal history of nicotine dependence; Z86.11 Personal history of tuberculosis; Z85.51 Personal history of malignant neoplasm of bladder; Z99.89 Dependence on other enabling machines and devices; Z88.8 Allergy status to other drugs, medicaments and biological substances
CPT/HCPCS: 36415; 80053; 82962; 85027; 86593; 86780; C9803-CS; U0003; U0005

== ENCOUNTER 2023-02-05 16:52 | Inpatient (IN) | payer OTHER ==
[2023-02-05 17:19] VITALS: BMI 28.7
[2023-02-05 18:39] LABS: COCAINE, UR NEGATIVE (NEGATIVE); OPIATES, URI NEGATIVE (NEGATIVE)
[2023-02-05 18:40] LABS: PHENCYCLIDINE,URINE NEGATIVE (NEGATIVE); URINE BENZODIAZEPINES NEGATIVE (NEGATIVE)
[2023-02-05 18:45] LABS: METHADONE, UR NEGATIVE (NEGATIVE); URINE AMPHETAMINES NEGATIVE (NEGATIVE); URINE BARBITURATES NEGATIVE (NEGATIVE)
[2023-02-05 19:16] LABS: BASO % 1.2 % (0-2.0); EOS % 0.9 % (0-4.5); HEMATOCRIT 21.8 % (35.4-49); HEMOGLOBIN 7.4 GM/dL (11.7-16.9); LYMPH % 14.2 % (8-40); MCHC 34.1 g/dl (32.0-35.9); MEAN CELL VOLUME 79.3 fl (80-96); NEUT % 78.7 % (42.8-82.8); PLATELET COUNT 332 10^3/uL (134-434); RBC 2.75 M/mm3 (4.00-5.60); RDW 19.5 % (11.9-15.9); WHITE BLOOD COUNT 7.9 K/mm3 (4.0-10.0)
[2023-02-05 19:28] LABS: ALBUMIN 3.1 g/dl (3.4-5.0); CALCIUM 8.4 mg/dL (8.5-10.1)
[2023-02-05 19:29] LABS: BLOOD UREA NITROGEN 85.3 mg/dL (7-18)
[2023-02-05 19:31] LABS: CREATININE 3.7 mg/dL (0.55-1.3)
[2023-02-05 19:33] LABS: BILIRUBIN,TOTAL 0.2 mg/dL (0.2-1); TOT PROT 7.8 g/dl (6.4-8.2)
[2023-02-05 20:22] LABS: INR 0.98 (0.83-1.09); PROTHROMBIN TIME (PATIENT) 11.4 SEC (9.7-13.0)
[2023-02-05] MEDS ORDERED: SODIUM CHLORIDE 0.9% 500 ML INFUS.BAG IV ONE (20:43)
[2023-02-05] MEDS ORDERED: ACETAMINOPHEN 1000 MG/100 ML BAG IVPB ONE (21:25)
[2023-02-05] MEDS ORDERED: PANTOPRAZOLE SODIUM 40 MG VIAL IVPUSH ONE (21:59)
[2023-02-05] MEDS ORDERED: ACETAMINOPHEN INJECTION 100 ML IVPB ONE (23:09)
[2023-02-05] MEDS ORDERED: PANTOPRAZOLE SODIUM 40 MG VIAL ONE (23:34)
[2023-02-05] MEDS ORDERED: LORazepam 1 MG TABLET ONE (23:38)
[2023-02-05] MEDS ORDERED: HEPARIN NA (PORCINE) 5,000 UNITS/ML 1ML VIAL ONE (23:38)
[2023-02-05] MEDS: HEPARIN NA (PORCINE) 5,000 UNITS/ML 1ML VIAL SQ SCH (23:45)
[2023-02-05] MEDS ORDERED: LACTATED RINGERS SOLUTION 1,000 ML/1,000 ML INFUS.BAG IV SCH (23:45)
[2023-02-05] MEDS: LORazepam 1 MG TABLET PO SCH (23:47)
[2023-02-05 23:48] LABS: RETICULOCYTES 1.36 % (0.5-1.5)
[2023-02-06 00:07] LABS: EPI CELLS 10 /uL (0-25.1); HYALINE CASTS 0 /uL (0-3.1); PH,URINE 6.5 (5.0-8.0); URINE APPEARANCE CLEAR; URINE BACTERIA 71 /uL (0-1359); URINE BILIRUBIN NEGATIVE (NEGATIVE); URINE COLOR YELLOW; URINE GLUCOSE (UA) NEGATIVE (NEGATIVE); URINE KETONE NEGATIVE (NEGATIVE); URINE LEUK ESTERASE NEGATIVE (NEGATIVE); URINE NITRITE NEGATIVE (NEGATIVE); URINE PROTEIN 3+ (NEGATIVE); URINE UROBILINOGEN 0.2 mg/dL (0.2-1.0); URINE WBC 34 /uL (0-25.8)
[2023-02-06] MEDS ORDERED: LORazepam 1 MG TABLET ONE ×2 (05:23→10:41)
[2023-02-06] MEDS: LORazepam 1 MG TABLET PO SCH ×4 (05:28→22:41)
[2023-02-06 06:26] LABS: HEMATOCRIT 22.2 % (35.4-49); HEMOGLOBIN 7.6 GM/dL (11.7-16.9); MCH 27.5 pg (25.7-33.7); MCHC 34.3 g/dl (32.0-35.9); MEAN CELL VOLUME 80.3 fl (80-96); MEAN PLT VOLUME 6.8 fl (7.5-11.1); PLATELET COUNT 268 10^3/uL (134-434); RBC 2.76 M/mm3 (4.00-5.60); RDW 19.4 % (11.9-15.9); WHITE BLOOD COUNT 7.9 K/mm3 (4.0-10.0)
[2023-02-06 06:48] LABS: CALCIUM 8.4 mg/dL (8.5-10.1)
[2023-02-06 06:49] LABS: BLOOD UREA NITROGEN 80.6 mg/dL (7-18); MAGNESIUM 1.9 mg/dL (1.8-2.4)
[2023-02-06 06:52] LABS: CREATININE 3.6 mg/dL (0.55-1.3); PHOSPHOROUS 4.2 mg/dL (2.5-4.9)
[2023-02-06 06:53] LABS: BILIRUBIN,TOTAL 0.4 mg/dL (0.2-1); TOT PROT 7.4 g/dl (6.4-8.2)
[2023-02-06 07:15] LABS: URINE RBC 172.7 /uL (0-23.9); YEAST FEW (NEGATIVE)
[2023-02-06] MEDS ORDERED: PANTOPRAZOLE SODIUM 40 MG VIAL IVPUSH SCH (10:00)
[2023-02-06] MEDS ORDERED: THIAMINE HCL 200 MG/2 ML VIAL ONE (10:41)
[2023-02-06] MEDS ORDERED: SODIUM ZIRCONIUM CYCLOSILICATE (LOKELMA) 5 GM PACKET ONE (10:41)
[2023-02-06] MEDS ORDERED: HEPARIN NA (PORCINE) 5,000 UNITS/ML 1ML VIAL ONE (10:42)
[2023-02-06] MEDS ORDERED: levETIRAcetam 500 MG/5 ML INJECTION VIAL IVPB ONE (10:42)
[2023-02-06] MEDS ORDERED: PANTOPRAZOLE SODIUM 40 MG VIAL ONE (10:42)
[2023-02-06] MEDS: FOLIC ACID 5 MG/1 ML SQ SCH (11:05)
[2023-02-06] MEDS: THIAMINE HCL 200 MG/2 ML VIAL IVPB SCH (11:06)
[2023-02-06] MEDS: levETIRAcetam 500 MG/5 ML INJECTION VIAL IVPB SCH ×2 (11:06→22:42)
[2023-02-06] MEDS: HEPARIN NA (PORCINE) 5,000 UNITS/ML 1ML VIAL SQ SCH ×3 (11:06→22:42)
[2023-02-06] MEDS: SODIUM ZIRCONIUM CYCLOSILICATE (LOKELMA) 5 GM PACKET PO SCH (11:06)
[2023-02-06] MEDS ORDERED: LACTATED RINGERS SOLUTION 1,000 ML/1,000 ML INFUS.BAG IV SCH (16:33)
[2023-02-06] MEDS: INSULIN SLIDING SCALE (NOVOLOG) 1 VIAL SQ SCH (16:45)
[2023-02-06] MEDS: amLODIPine BESYLATE 10 MG TABLET (FP) PO SCH (16:47)
[2023-02-06] MEDS ORDERED: QUEtiapine FUMARATE 25 MG TABLET PO SCH (22:00)
[2023-02-07] MEDS ORDERED: LORazepam 1 MG TABLET PO SCH (05:00)
[2023-02-07] MEDS: HEPARIN NA (PORCINE) 5,000 UNITS/ML 1ML VIAL SQ SCH ×3 (06:24→22:14)
[2023-02-07] MEDS: INSULIN SLIDING SCALE (NOVOLOG) 1 VIAL SQ SCH ×2 (06:42→10:50)
[2023-02-07 07:36] LABS: BASO % 1.3 % (0-2.0); EOS % 3.7 % (0-4.5); HEMATOCRIT 18.9 % (35.4-49); LYMPH % 36.2 % (8-40); MCH 27.5 pg (25.7-33.7); MCHC 34.8 g/dl (32.0-35.9); MEAN CELL VOLUME 79.1 fl (80-96); MEAN PLT VOLUME 7.1 fl (7.5-11.1); MONO % 7.5 % (3.8-10.2); NEUT % 51.3 % (42.8-82.8); PLATELET COUNT 210 10^3/uL (134-434); RBC 2.39 M/mm3 (4.00-5.60); RDW 19.1 % (11.9-15.9); WHITE BLOOD COUNT 5.7 K/mm3 (4.0-10.0)
[2023-02-07 07:46] LABS: HEMOGLOBIN 6.6 GM/dL (11.7-16.9)
[2023-02-07 08:01] LABS: BLOOD UREA NITROGEN 77.2 mg/dL (7-18)
[2023-02-07 08:03] LABS: BILIRUBIN,DIRECT 0.1 mg/dL (0.0-0.2)
[2023-02-07 08:04] LABS: CALCIUM 7.7 mg/dL (8.5-10.1)
[2023-02-07 08:05] LABS: ALBUMIN 2.4 g/dl (3.4-5.0); BILIRUBIN,TOTAL 0.4 mg/dL (0.2-1); TOT PROT 6.2 g/dl (6.4-8.2)
[2023-02-07 08:08] LABS: CREATININE 3.6 mg/dL (0.55-1.3)
[2023-02-07 08:10] LABS: BILIRUBIN,TOTAL 0.3 mg/dL (0.2-1); TOT PROT 6.3 g/dl (6.4-8.2)
[2023-02-07] MEDS ORDERED: hydrALAZINE HCL 50 MG TABLET (FP) PO SCH (08:23)
[2023-02-07] MEDS: CARVEDILOL 25 MG TABLET (FP) PO SCH ×2 (09:07→22:12)
[2023-02-07] MEDS: levETIRAcetam 500 MG/5 ML INJECTION VIAL IVPB SCH (09:07)
[2023-02-07] MEDS: amLODIPine BESYLATE 10 MG TABLET (FP) PO SCH ×2 (09:07→10:38)
[2023-02-07] MEDS: THIAMINE HCL 200 MG/2 ML VIAL IVPB SCH (09:53)
[2023-02-07] MEDS: PANTOPRAZOLE 40 MG TABLET PO SCH (09:54)
[2023-02-07] MEDS ORDERED: PATIENT'S OWN MEDICATION (NON-FORMULARY) (Olanzapine [Olanzapine] 10 MG Tablet) PO SCH (10:00)
[2023-02-07] MEDS ORDERED: amLODIPine BESYLATE 10 MG TABLET (FP) PO SCH (10:00)
[2023-02-07] MEDS ORDERED: OLANZAPINE 20 MG PO SCH (10:00)
[2023-02-07] MEDS: levETIRAcetam 500 MG TABLET (FP) PO SCH ×2 (10:37→22:12)
[2023-02-07] MEDS ORDERED: LORazepam 1 MG TABLET PO PRN (10:48)
[2023-02-07] MEDS: FOLIC ACID 5 MG/1 ML SQ SCH (10:51)
[2023-02-07] MEDS: SODIUM ZIRCONIUM CYCLOSILICATE (LOKELMA) 5 GM PACKET PO SCH (11:01)
[2023-02-07] MEDS ORDERED: EPOETIN ALFA-EPBX 20,000 UNIT/ML VIAL SQ ONE (11:43)
[2023-02-07] MEDS: LORazepam 1 MG TABLET PO SCH ×3 (12:11→22:13)
[2023-02-07] MEDS ORDERED: ATORVASTATIN CA 20 MG TABLET (FP) PO SCH (22:00)
[2023-02-07] MEDS: QUEtiapine FUMARATE 25 MG TABLET PO SCH (22:13)
[2023-02-08] MEDS ORDERED: LORazepam 0.5 MG TABLET PO SCH (05:00)
[2023-02-08] MEDS: LORazepam 1 MG TABLET PO SCH ×4 (06:14→22:01)
[2023-02-08] MEDS: HEPARIN NA (PORCINE) 5,000 UNITS/ML 1ML VIAL SQ SCH ×3 (06:14→21:36)
[2023-02-08 06:53] LABS: BASO % 0.5 % (0-2.0); HEMATOCRIT 20.1 % (35.4-49); HEMOGLOBIN 7.1 GM/dL (11.7-16.9); LYMPH % 36.8 % (8-40); MCH 28.4 pg (25.7-33.7); MCHC 35.3 g/dl (32.0-35.9); MEAN CELL VOLUME 80.5 fl (80-96); MEAN PLT VOLUME 6.8 fl (7.5-11.1); MONO % 6.6 % (3.8-10.2); NEUT % 51.1 % (42.8-82.8); PLATELET COUNT 190 10^3/uL (134-434); RBC 2.49 M/mm3 (4.00-5.60); RDW 17.9 % (11.9-15.9); WHITE BLOOD COUNT 5.8 K/mm3 (4.0-10.0)
[2023-02-08 07:10] LABS: CHLORIDE 112 mmol/L (98-107); SODIUM 141 mmol/L (136-145)
[2023-02-08 07:12] LABS: ANION GAP 6 MMOL/L (8-16); BLOOD UREA NITROGEN 70.2 mg/dL (7-18); CALCIUM 7.4 mg/dL (8.5-10.1); CO2 22 mmol/L (21-32)
[2023-02-08 07:13] LABS: ALBUMIN 2.4 g/dl (3.4-5.0); GLUCOSE,RANDOM 89 mg/dL (74-106); MAGNESIUM 1.4 mg/dL (1.8-2.4)
[2023-02-08 07:15] LABS: BILIRUBIN,DIRECT < 0.1 mg/dL (0.0-0.2); CREATININE 3.8 mg/dL (0.55-1.3); PHOSPHOROUS 4.1 mg/dL (2.5-4.9); SGOT/AST 14 U/L (15-37); SGPT/ALT 15 U/L (13-61)
[2023-02-08 07:17] LABS: BILIRUBIN,TOTAL 0.2 mg/dL (0.2-1)
[2023-02-08 07:18] LABS: ALK PHOS 72 U/L (45-117)
[2023-02-08] MEDS ORDERED: LOPERAMIDE HCL 1 MG/5 ML UNIT DOSE CUP PO PRN (07:19)
[2023-02-08] MEDS ORDERED: LOPERAMIDE HCL 1 MG/7.5 ML LIQUID PO PRN (08:30)
[2023-02-08] MEDS ORDERED: ACETAMINOPHEN 325 MG TABLET (FP) PO PRN (08:46)
[2023-02-08] MEDS: levETIRAcetam 500 MG TABLET (FP) PO SCH ×2 (09:09→21:35)
[2023-02-08] MEDS: PANTOPRAZOLE 40 MG TABLET PO SCH (09:09)
[2023-02-08] MEDS: FOLIC ACID 1 MG TABLET (FP) PO SCH (09:09)
[2023-02-08] MEDS: THIAMINE HCL 100 MG TABLET (FP) PO SCH ×2 (09:09→21:36)
[2023-02-08] MEDS: CARVEDILOL 25 MG TABLET (FP) PO SCH ×2 (09:09→21:35)
[2023-02-08] MEDS: amLODIPine BESYLATE 10 MG TABLET (FP) PO SCH (09:09)
[2023-02-08] MEDS ORDERED: IRON SUCROSE INJECTION 200 MG in SODIUM CHLORIDE 90 ML IVPB ONE (09:35)
[2023-02-08] MEDS: FERROUS SO4 325 MG TABLET (FP) PO SCH (11:35)
[2023-02-08] MEDS ORDERED: LORazepam 1 MG TABLET PO PRN (12:44)
[2023-02-08] MEDS ORDERED: MAGNESIUM OXIDE 400 MG TABLET (FP) PO ONE (14:57)
[2023-02-08 19:12] LABS: GLIADIN ANTIBODY IGA 10 units (0-19); GLIADIN ANTIBODY IGG 11 units (0-19); TRANSGLUTAMINASE IGG 4 U/mL (0-5)
[2023-02-08] MEDS: ATORVASTATIN CA 20 MG TABLET (FP) PO SCH (21:35)
[2023-02-08] MEDS: QUEtiapine FUMARATE 25 MG TABLET PO SCH (21:35)
[2023-02-09] MEDS ORDERED: LORazepam 1 MG TABLET PO SCH (05:00)
[2023-02-09] MEDS ORDERED: LORazepam 0.5 MG TABLET PO ONE ×2 (05:00)
[2023-02-09] MEDS: LORazepam 0.5 MG TABLET PO SCH ×4 (05:39→22:58)
[2023-02-09] MEDS: HEPARIN NA (PORCINE) 5,000 UNITS/ML 1ML VIAL SQ SCH ×3 (05:39→22:59)
[2023-02-09 08:39] LABS: BASO % 0.6 % (0-2.0); EOS % 4.9 % (0-4.5); HEMOGLOBIN 7.2 GM/dL (11.7-16.9); LYMPH % 34.4 % (8-40); MCHC 34.1 g/dl (32.0-35.9); MEAN CELL VOLUME 82.2 fl (80-96); MEAN PLT VOLUME 6.9 fl (7.5-11.1); MONO % 7.1 % (3.8-10.2); PLATELET COUNT 187 10^3/uL (134-434); RBC 2.55 M/mm3 (4.00-5.60); RDW 17.8 % (11.9-15.9)
[2023-02-09 09:03] LABS: CALCIUM 7.4 mg/dL (8.5-10.1)
[2023-02-09 09:04] LABS: ALBUMIN 2.3 g/dl (3.4-5.0); BLOOD UREA NITROGEN 68.1 mg/dL (7-18); MAGNESIUM 1.5 mg/dL (1.8-2.4)
[2023-02-09 09:06] LABS: BILIRUBIN,DIRECT 0.1 mg/dL (0.0-0.2)
[2023-02-09 09:07] LABS: PHOSPHOROUS 4.1 mg/dL (2.5-4.9)
[2023-02-09 09:08] LABS: BILIRUBIN,TOTAL 0.2 mg/dL (0.2-1); TOT PROT 5.9 g/dl (6.4-8.2)
[2023-02-09] MEDS: FERROUS SO4 325 MG TABLET (FP) PO SCH (10:53)
[2023-02-09] MEDS: CARVEDILOL 25 MG TABLET (FP) PO SCH ×2 (10:53→22:57)
[2023-02-09] MEDS: THIAMINE HCL 100 MG TABLET (FP) PO SCH ×2 (10:54→22:57)
[2023-02-09] MEDS: amLODIPine BESYLATE 10 MG TABLET (FP) PO SCH (10:54)
[2023-02-09] MEDS: PANTOPRAZOLE 40 MG TABLET PO SCH (10:54)
[2023-02-09] MEDS: FOLIC ACID 1 MG TABLET (FP) PO SCH (10:55)
[2023-02-09] MEDS: levETIRAcetam 500 MG TABLET (FP) PO SCH ×2 (10:55→22:57)
[2023-02-09] MEDS: ATORVASTATIN CA 20 MG TABLET (FP) PO SCH (22:56)
[2023-02-09] MEDS: QUEtiapine FUMARATE 25 MG TABLET PO SCH (22:59)
[2023-02-10] MEDS ORDERED: LORazepam 0.5 MG TABLET PO PRN ×2
[2023-02-10] MEDS ORDERED: LORazepam 0.5 MG TABLET PO ONE (05:00)
[2023-02-10] MEDS ORDERED: LORazepam 0.5 MG TABLET PO SCH (05:00)
[2023-02-10] MEDS: HEPARIN NA (PORCINE) 5,000 UNITS/ML 1ML VIAL SQ SCH ×3 (06:31→21:52)
[2023-02-10 09:44] LABS: BASO % 0.6 % (0-2.0); EOS % 4.9 % (0-4.5); LYMPH % 30.4 % (8-40); MCH 28.5 pg (25.7-33.7); MCHC 34.6 g/dl (32.0-35.9); MEAN CELL VOLUME 82.4 fl (80-96); MEAN PLT VOLUME 6.7 fl (7.5-11.1); MONO % 7.6 % (3.8-10.2); NEUT % 56.5 % (42.8-82.8); PLATELET COUNT 196 10^3/uL (134-434); RBC 2.79 M/mm3 (4.00-5.60); RDW 18.5 % (11.9-15.9); WHITE BLOOD COUNT 6.2 K/mm3 (4.0-10.0)
[2023-02-10 10:02] LABS: CALCIUM 7.8 mg/dL (8.5-10.1)
[2023-02-10 10:03] LABS: ALBUMIN 2.4 g/dl (3.4-5.0); BLOOD UREA NITROGEN 75.6 mg/dL (7-18); MAGNESIUM 1.3 mg/dL (1.8-2.4)
[2023-02-10 10:06] LABS: CREATININE 4.4 mg/dL (0.55-1.3); PHOSPHOROUS 4.3 mg/dL (2.5-4.9)
[2023-02-10 10:07] LABS: BILIRUBIN,TOTAL 0.3 mg/dL (0.2-1)
[2023-02-10 10:08] LABS: TOT PROT 6.3 g/dl (6.4-8.2)
[2023-02-10] MEDS: FERROUS SO4 325 MG TABLET (FP) PO SCH (10:26)
[2023-02-10] MEDS: THIAMINE HCL 100 MG TABLET (FP) PO SCH ×2 (10:26→21:52)
[2023-02-10] MEDS: levETIRAcetam 500 MG TABLET (FP) PO SCH ×2 (10:26→21:52)
[2023-02-10] MEDS: CARVEDILOL 25 MG TABLET (FP) PO SCH ×2 (10:26→21:53)
[2023-02-10] MEDS: FOLIC ACID 1 MG TABLET (FP) PO SCH (10:26)
[2023-02-10] MEDS: PANTOPRAZOLE 40 MG TABLET PO SCH (10:26)
[2023-02-10] MEDS: amLODIPine BESYLATE 10 MG TABLET (FP) PO SCH (10:26)
[2023-02-10] MEDS: ATORVASTATIN CA 20 MG TABLET (FP) PO SCH (21:52)
[2023-02-10] MEDS: QUEtiapine FUMARATE 25 MG TABLET PO SCH (21:53)
[2023-02-11] MEDS ORDERED: LORazepam 0.5 MG TABLET PO ONE (05:00)
[2023-02-11] MEDS: HEPARIN NA (PORCINE) 5,000 UNITS/ML 1ML VIAL SQ SCH ×3 (06:13→21:47)
[2023-02-11] MEDS: PANTOPRAZOLE 40 MG TABLET PO SCH (10:00)
[2023-02-11] MEDS: THIAMINE HCL 100 MG TABLET (FP) PO SCH ×2 (10:00→21:47)
[2023-02-11] MEDS: FOLIC ACID 1 MG TABLET (FP) PO SCH (10:00)
[2023-02-11] MEDS: amLODIPine BESYLATE 10 MG TABLET (FP) PO SCH (10:00)
[2023-02-11] MEDS: FERROUS SO4 325 MG TABLET (FP) PO SCH (10:00)
[2023-02-11] MEDS: CARVEDILOL 25 MG TABLET (FP) PO SCH ×2 (10:00→21:47)
[2023-02-11] MEDS: levETIRAcetam 500 MG TABLET (FP) PO SCH ×2 (10:00→21:47)
[2023-02-11 10:11] LABS: BASO % 0.5 % (0-2.0); EOS % 1.6 % (0-4.5); HEMATOCRIT 22.9 % (35.4-49); HEMOGLOBIN 7.5 GM/dL (11.7-16.9); LYMPH % 32.3 % (8-40); MCH 27.9 pg (25.7-33.7); MEAN CELL VOLUME 84.6 fl (80-96); MEAN PLT VOLUME 6.6 fl (7.5-11.1); NEUT % 57.6 % (42.8-82.8); PLATELET COUNT 200 10^3/uL (134-434); RDW 18.8 % (11.9-15.9)
[2023-02-11 10:22] LABS: BLOOD UREA NITROGEN 72.3 mg/dL (7-18); CALCIUM 7.9 mg/dL (8.5-10.1)
[2023-02-11 10:26] LABS: CREATININE 4.4 mg/dL (0.55-1.3)
[2023-02-11] MEDS ORDERED: EPOETIN ALFA-EPBX 20,000 UNIT/ML VIAL SQ ONE (13:00)
[2023-02-11] MEDS: ATORVASTATIN CA 20 MG TABLET (FP) PO SCH (21:47)
[2023-02-11] MEDS: QUEtiapine FUMARATE 25 MG TABLET PO SCH (21:47)
[2023-02-12] MEDS: HEPARIN NA (PORCINE) 5,000 UNITS/ML 1ML VIAL SQ SCH ×2 (05:41→14:34)
[2023-02-12 09:40] LABS: BASO % 0.6 % (0-2.0); EOS % 3.9 % (0-4.5); HEMATOCRIT 22.8 % (35.4-49); HEMOGLOBIN 7.6 GM/dL (11.7-16.9); LYMPH % 29.8 % (8-40); MCHC 33.5 g/dl (32.0-35.9); MEAN CELL VOLUME 83.5 fl (80-96); MEAN PLT VOLUME 6.6 fl (7.5-11.1); MONO % 9.9 % (3.8-10.2); NEUT % 55.8 % (42.8-82.8); PLATELET COUNT 208 10^3/uL (134-434); RBC 2.73 M/mm3 (4.00-5.60); RDW 19.3 % (11.9-15.9); WHITE BLOOD COUNT 5.5 K/mm3 (4.0-10.0)
[2023-02-12] MEDS: amLODIPine BESYLATE 10 MG TABLET (FP) PO SCH (09:50)
[2023-02-12] MEDS: levETIRAcetam 500 MG TABLET (FP) PO SCH (09:50)
[2023-02-12] MEDS: PANTOPRAZOLE 40 MG TABLET PO SCH (09:50)
[2023-02-12] MEDS: THIAMINE HCL 100 MG TABLET (FP) PO SCH (09:50)
[2023-02-12] MEDS: CARVEDILOL 25 MG TABLET (FP) PO SCH (09:50)
[2023-02-12] MEDS: FERROUS SO4 325 MG TABLET (FP) PO SCH (09:50)
[2023-02-12] MEDS: FOLIC ACID 1 MG TABLET (FP) PO SCH (09:50)
[2023-02-12 09:55] VITALS: RESP 16
[2023-02-12 11:39] LABS: CALCIUM 7.9 mg/dL (8.5-10.1)
[2023-02-12 11:40] LABS: ALBUMIN 2.5 g/dl (3.4-5.0); BLOOD UREA NITROGEN 70.5 mg/dL (7-18)
[2023-02-12 11:44] LABS: BILIRUBIN,TOTAL 0.2 mg/dL (0.2-1); TOT PROT 6.4 g/dl (6.4-8.2)
[2023-02-12 13:59] VITALS: BP 149/73; PULSE 71; TEMP 97.5
== END 2023-02-12 16:22 | disposition other institution (70) | DRG 53 ==
LOC: JER 16:52 → JERBED 21:45 → J4S 02-06 15:19 → J8W 02-08 12:10
PROVIDERS: ADMIT Internal Medicine
PROC: 30233N1 Transfusion of Nonautologous Red Blood Cells into Peripheral Vein, Percutaneous Approach (ICD-10-PCS; principal; 2023-02-07)
DX: R56.9 Unspecified convulsions (principal); G92.8 Other toxic encephalopathy; K62.5 Hemorrhage of anus and rectum; F10.239 Alcohol dependence with withdrawal, unspecified; I69.354 Hemiplegia and hemiparesis following cerebral infarction affecting left non-dominant side; N17.9 Acute kidney failure, unspecified; I13.10 Hypertensive heart and chronic kidney disease without heart failure, with stage 1 through stage 4 chronic kidney disease, or unspecified chronic kidney disease; E11.9 Type 2 diabetes mellitus without complications; E78.5 Hyperlipidemia, unspecified; F20.9 Schizophrenia, unspecified; D64.9 Anemia, unspecified; R19.5 Other fecal abnormalities; E87.5 Hyperkalemia; R31.0 Gross hematuria; N40.0 Benign prostatic hyperplasia without lower urinary tract symptoms; N18.9 Chronic kidney disease, unspecified; Z91.148 Patient's other noncompliance with medication regimen for other reason
CPT/HCPCS: 36415; 36430; 70450-TC; 74176-TC; 80048; 80053; 80076; 80307; 81003; 82105; 82272; 82728; 82784; 82962; 83036; 83516; 83540; 83550; 83615; 83735; 84100; 85025; 85027; 85045; 85610; 86038; 86850; 86900; 86901; 86922; 87086; 93005; 93010; 95816; 97116-GP; 97161-GP; 99285-25; C9803-CS; J1644; P9058; Q9967; U0003; U0005

== ENCOUNTER 2023-02-12 16:59 | Inpatient (IN) | payer OTHER ==
[2023-02-12] MEDS ORDERED: P-EPHED 60MG/TRIPROLIDI 2.5MG TABLET PO PRN (17:50)
[2023-02-12] MEDS ORDERED: guaiFENesin 600 MG TABLET.ER (FP) PO PRN (17:50)
[2023-02-12] MEDS ORDERED: AMMONIUM LACTATE 12% LOTION 225 GM BOTTLE TP PRN (17:50)
[2023-02-12] MEDS ORDERED: COLLOIDAL OATMEAL 1 BAR EACH TP PRN (17:50)
[2023-02-12] MEDS ORDERED: ACETAMINOPHEN 325 MG TABLET (FP) PO PRN (17:50)
[2023-02-12] MEDS ORDERED: MAGNESIUM HYDROX 2400MG/30ML ORAL SUSPENSION 30 ML CUP PO PRN (17:50)
[2023-02-12] MEDS ORDERED: IBUPROFEN 600 MG TABLET (FP) PO PRN (17:50)
[2023-02-12] MEDS ORDERED: IBUPROFEN 400 MG TABLET (FP) PO PRN (17:50)
[2023-02-12] MEDS ORDERED: MAG HYDROX/AL HYDROX/SIMETH 30 ML UNIT-DOSE CUP PO PRN (17:50)
[2023-02-12] MEDS ORDERED: LOPERAMIDE HCL 2 MG CAPSULE PO PRN (17:50)
[2023-02-12] MEDS ORDERED: BENZONATATE 200 MG CAPSULE PO PRN (17:50)
[2023-02-12] MEDS ORDERED: POLYETHYLENE GLYCOL (HEALTHYLAX) 3350 17 GM PACKET PO PRN (17:50)
[2023-02-12] MEDS ORDERED: BENZOCAINE/MENTHOL (CHLORASEPTIC ) LOZENGE MM PRN (17:50)
[2023-02-12] MEDS: MELATONIN 5 MG TABLETS PO PRN (22:04)
[2023-02-12] MEDS: THIAMINE HCL 100 MG TABLET (FP) PO SCH (22:04)
[2023-02-12] MEDS: levETIRAcetam 500 MG TABLET (FP) PO SCH (22:04)
[2023-02-12] MEDS: ATORVASTATIN CA 20 MG TABLET (FP) PO SCH (22:04)
[2023-02-12] MEDS: QUEtiapine FUMARATE 25 MG TABLET PO SCH (22:04)
[2023-02-12] MEDS: CARVEDILOL 25 MG TABLET (FP) PO SCH (22:05)
[2023-02-13] MEDS: FERROUS SO4 325 MG TABLET (FP) PO SCH (09:35)
[2023-02-13] MEDS: THIAMINE HCL 100 MG TABLET (FP) PO SCH ×2 (09:36→21:26)
[2023-02-13] MEDS: levETIRAcetam 500 MG TABLET (FP) PO SCH ×2 (09:36→21:26)
[2023-02-13] MEDS: PANTOPRAZOLE 40 MG TABLET PO SCH (09:36)
[2023-02-13] MEDS: PRENATAL VITAMINS W/ FOLIC ACID TABLET (FP) PO SCH (09:36)
[2023-02-13] MEDS: amLODIPine BESYLATE 10 MG TABLET (FP) PO SCH (09:36)
[2023-02-13] MEDS: FOLIC ACID 1 MG TABLET (FP) PO SCH (09:36)
[2023-02-13] MEDS: CARVEDILOL 25 MG TABLET (FP) PO SCH ×2 (09:55→21:27)
[2023-02-13] MEDS: QUEtiapine FUMARATE 25 MG TABLET PO SCH (21:26)
[2023-02-13] MEDS: ATORVASTATIN CA 20 MG TABLET (FP) PO SCH (21:27)
[2023-02-13] MEDS: MELATONIN 5 MG TABLETS PO PRN (21:27)
[2023-02-14] MEDS: PANTOPRAZOLE 40 MG TABLET PO SCH (09:37)
[2023-02-14] MEDS: CARVEDILOL 25 MG TABLET (FP) PO SCH ×2 (09:37→21:42)
[2023-02-14] MEDS: FERROUS SO4 325 MG TABLET (FP) PO SCH (09:38)
[2023-02-14] MEDS: levETIRAcetam 500 MG TABLET (FP) PO SCH ×2 (09:38→21:42)
[2023-02-14] MEDS: THIAMINE HCL 100 MG TABLET (FP) PO SCH (09:38)
[2023-02-14] MEDS: FOLIC ACID 1 MG TABLET (FP) PO SCH (09:38)
[2023-02-14] MEDS: amLODIPine BESYLATE 10 MG TABLET (FP) PO SCH (09:38)
[2023-02-14] MEDS: PRENATAL VITAMINS W/ FOLIC ACID TABLET (FP) PO SCH (09:38)
[2023-02-14 14:43] LABS: BASO % 0.5 % (0-2.0); EOS % 2.7 % (0-4.5); HEMATOCRIT 23.6 % (35.4-49); HEMOGLOBIN 7.9 GM/dL (11.7-16.9); LYMPH % 22.1 % (8-40); MCHC 33.3 g/dl (32.0-35.9); MEAN CELL VOLUME 84.1 fl (80-96); MEAN PLT VOLUME 6.9 fl (7.5-11.1); MONO % 11.1 % (3.8-10.2); NEUT % 63.6 % (42.8-82.8); PLATELET COUNT 208 10^3/uL (134-434); RDW 19.5 % (11.9-15.9); WHITE BLOOD COUNT 4.4 K/mm3 (4.0-10.0)
[2023-02-14 14:48] LABS: POTASSIUM 4.1 mmol/L (3.5-5.1)
[2023-02-14 14:50] LABS: ALBUMIN 2.7 g/dl (3.4-5.0); BLOOD UREA NITROGEN 63.1 mg/dL (7-18); CALCIUM 7.8 mg/dL (8.5-10.1)
[2023-02-14 14:54] LABS: CREATININE 4.1 mg/dL (0.55-1.3)
[2023-02-14 14:55] LABS: BILIRUBIN,TOTAL 0.3 mg/dL (0.2-1); TOT PROT 6.5 g/dl (6.4-8.2)
[2023-02-14] MEDS: ATORVASTATIN CA 20 MG TABLET (FP) PO SCH (21:42)
[2023-02-14] MEDS: QUEtiapine FUMARATE 25 MG TABLET PO SCH (21:42)
[2023-02-15] MEDS: THIAMINE HCL 100 MG TABLET (FP) PO SCH (09:47)
[2023-02-15] MEDS: levETIRAcetam 500 MG TABLET (FP) PO SCH ×2 (09:47→21:28)
[2023-02-15] MEDS: FOLIC ACID 1 MG TABLET (FP) PO SCH (09:47)
[2023-02-15] MEDS: amLODIPine BESYLATE 10 MG TABLET (FP) PO SCH (09:47)
[2023-02-15] MEDS: PANTOPRAZOLE 40 MG TABLET PO SCH (09:48)
[2023-02-15] MEDS: FERROUS SO4 325 MG TABLET (FP) PO SCH (09:48)
[2023-02-15] MEDS: CARVEDILOL 25 MG TABLET (FP) PO SCH ×2 (09:48→21:28)
[2023-02-15] MEDS: ATORVASTATIN CA 20 MG TABLET (FP) PO SCH (21:28)
[2023-02-15] MEDS: QUEtiapine FUMARATE 25 MG TABLET PO SCH (21:28)
[2023-02-16] MEDS: levETIRAcetam 500 MG TABLET (FP) PO SCH ×2 (10:15→21:19)
[2023-02-16] MEDS: PANTOPRAZOLE 40 MG TABLET PO SCH (10:15)
[2023-02-16] MEDS: CARVEDILOL 25 MG TABLET (FP) PO SCH ×2 (10:15→21:19)
[2023-02-16] MEDS: FOLIC ACID 1 MG TABLET (FP) PO SCH (10:15)
[2023-02-16] MEDS: amLODIPine BESYLATE 10 MG TABLET (FP) PO SCH (10:15)
[2023-02-16] MEDS: THIAMINE HCL 100 MG TABLET (FP) PO SCH (10:16)
[2023-02-16] MEDS: FERROUS SO4 325 MG TABLET (FP) PO SCH (10:16)
[2023-02-16] MEDS: ATORVASTATIN CA 20 MG TABLET (FP) PO SCH (21:19)
[2023-02-16] MEDS: QUEtiapine FUMARATE 25 MG TABLET PO SCH (21:20)
[2023-02-17] MEDS: levETIRAcetam 500 MG TABLET (FP) PO SCH ×2 (09:42→21:37)
[2023-02-17] MEDS: FERROUS SO4 325 MG TABLET (FP) PO SCH (09:43)
[2023-02-17] MEDS: FOLIC ACID 1 MG TABLET (FP) PO SCH (09:43)
[2023-02-17] MEDS: amLODIPine BESYLATE 10 MG TABLET (FP) PO SCH (09:43)
[2023-02-17] MEDS: PANTOPRAZOLE 40 MG TABLET PO SCH (09:43)
[2023-02-17] MEDS: THIAMINE HCL 100 MG TABLET (FP) PO SCH (09:43)
[2023-02-17] MEDS: CARVEDILOL 25 MG TABLET (FP) PO SCH ×2 (09:44→21:37)
[2023-02-17] MEDS: cloNIDine HCL 0.1 MG TABLET PO PRN (21:37)
[2023-02-17] MEDS: MELATONIN 5 MG TABLETS PO PRN (21:37)
[2023-02-17] MEDS: ATORVASTATIN CA 20 MG TABLET (FP) PO SCH (21:37)
[2023-02-17] MEDS: QUEtiapine FUMARATE 25 MG TABLET PO SCH (21:38)
[2023-02-18] MEDS: CARVEDILOL 25 MG TABLET (FP) PO SCH ×2 (09:50→21:17)
[2023-02-18] MEDS: FOLIC ACID 1 MG TABLET (FP) PO SCH (09:50)
[2023-02-18] MEDS: amLODIPine BESYLATE 10 MG TABLET (FP) PO SCH (09:51)
[2023-02-18] MEDS: PANTOPRAZOLE 40 MG TABLET PO SCH (09:51)
[2023-02-18] MEDS: levETIRAcetam 500 MG TABLET (FP) PO SCH ×2 (09:51→21:17)
[2023-02-18] MEDS: THIAMINE HCL 100 MG TABLET (FP) PO SCH (09:51)
[2023-02-18] MEDS: FERROUS SO4 325 MG TABLET (FP) PO SCH (09:51)
[2023-02-18] MEDS: ATORVASTATIN CA 20 MG TABLET (FP) PO SCH (21:17)
[2023-02-18] MEDS: cloNIDine HCL 0.1 MG TABLET PO PRN (21:17)
[2023-02-18] MEDS: MELATONIN 5 MG TABLETS PO PRN (21:18)
[2023-02-18] MEDS: QUEtiapine FUMARATE 25 MG TABLET PO SCH (21:18)
[2023-02-19] MEDS: FOLIC ACID 1 MG TABLET (FP) PO SCH (10:00)
[2023-02-19] MEDS: THIAMINE HCL 100 MG TABLET (FP) PO SCH (10:00)
[2023-02-19] MEDS: amLODIPine BESYLATE 10 MG TABLET (FP) PO SCH (10:00)
[2023-02-19] MEDS: levETIRAcetam 500 MG TABLET (FP) PO SCH ×2 (10:00→21:34)
[2023-02-19] MEDS: CARVEDILOL 25 MG TABLET (FP) PO SCH ×2 (10:00→21:34)
[2023-02-19] MEDS: FERROUS SO4 325 MG TABLET (FP) PO SCH (10:00)
[2023-02-19] MEDS: PANTOPRAZOLE 40 MG TABLET PO SCH (10:00)
[2023-02-19] MEDS: cloNIDine HCL 0.1 MG TABLET PO PRN (21:34)
[2023-02-19] MEDS: MELATONIN 5 MG TABLETS PO PRN (21:35)
[2023-02-19] MEDS: ATORVASTATIN CA 20 MG TABLET (FP) PO SCH (21:35)
[2023-02-19] MEDS: QUEtiapine FUMARATE 25 MG TABLET PO SCH (21:35)
[2023-02-20] MEDS: FOLIC ACID 1 MG TABLET (FP) PO SCH (10:18)
[2023-02-20] MEDS: CARVEDILOL 25 MG TABLET (FP) PO SCH ×2 (10:18→21:19)
[2023-02-20] MEDS: levETIRAcetam 500 MG TABLET (FP) PO SCH ×2 (10:18→21:19)
[2023-02-20] MEDS: amLODIPine BESYLATE 10 MG TABLET (FP) PO SCH (10:18)
[2023-02-20] MEDS: THIAMINE HCL 100 MG TABLET (FP) PO SCH (10:18)
[2023-02-20] MEDS: PANTOPRAZOLE 40 MG TABLET PO SCH (10:18)
[2023-02-20] MEDS: FERROUS SO4 325 MG TABLET (FP) PO SCH (10:19)
[2023-02-20] MEDS: ATORVASTATIN CA 20 MG TABLET (FP) PO SCH (21:19)
[2023-02-20] MEDS: QUEtiapine FUMARATE 25 MG TABLET PO SCH (21:19)
[2023-02-21] MEDS: FOLIC ACID 1 MG TABLET (FP) PO SCH (09:57)
[2023-02-21] MEDS: FERROUS SO4 325 MG TABLET (FP) PO SCH (09:57)
[2023-02-21] MEDS: PANTOPRAZOLE 40 MG TABLET PO SCH (09:57)
[2023-02-21] MEDS: amLODIPine BESYLATE 10 MG TABLET (FP) PO SCH (09:57)
[2023-02-21] MEDS: THIAMINE HCL 100 MG TABLET (FP) PO SCH (09:57)
[2023-02-21] MEDS: levETIRAcetam 500 MG TABLET (FP) PO SCH ×2 (09:57→21:21)
[2023-02-21] MEDS: CARVEDILOL 25 MG TABLET (FP) PO SCH ×2 (09:57→21:21)
[2023-02-21] MEDS: MELATONIN 5 MG TABLETS PO PRN (21:21)
[2023-02-21] MEDS: ATORVASTATIN CA 20 MG TABLET (FP) PO SCH (21:21)
[2023-02-21] MEDS: QUEtiapine FUMARATE 25 MG TABLET PO SCH (21:22)
[2023-02-22] MEDS: PANTOPRAZOLE 40 MG TABLET PO SCH (09:57)
[2023-02-22] MEDS: FOLIC ACID 1 MG TABLET (FP) PO SCH (09:57)
[2023-02-22] MEDS: levETIRAcetam 500 MG TABLET (FP) PO SCH ×2 (09:57→21:11)
[2023-02-22] MEDS: amLODIPine BESYLATE 10 MG TABLET (FP) PO SCH (09:57)
[2023-02-22] MEDS: CARVEDILOL 25 MG TABLET (FP) PO SCH ×2 (09:57→21:11)
[2023-02-22] MEDS: FERROUS SO4 325 MG TABLET (FP) PO SCH (09:58)
[2023-02-22] MEDS: THIAMINE HCL 100 MG TABLET (FP) PO SCH (09:58)
[2023-02-22 12:05] LABS: ALBUMIN 2.7 g/dl (3.4-5.0); BILIRUBIN,TOTAL 0.4 mg/dL (0.2-1); CALCIUM 7.3 mg/dL (8.5-10.1); CREATININE 3.6 mg/dL (0.55-1.3); TOT PROT 6.5 g/dl (6.4-8.2)
[2023-02-22] MEDS: MELATONIN 5 MG TABLETS PO PRN (21:10)
[2023-02-22] MEDS: QUEtiapine FUMARATE 25 MG TABLET PO SCH (21:11)
[2023-02-22] MEDS: ATORVASTATIN CA 20 MG TABLET (FP) PO SCH (21:11)
[2023-02-23] MEDS: FERROUS SO4 325 MG TABLET (FP) PO SCH (09:34)
[2023-02-23] MEDS: FOLIC ACID 1 MG TABLET (FP) PO SCH (09:34)
[2023-02-23] MEDS: CARVEDILOL 25 MG TABLET (FP) PO SCH ×2 (09:34→21:14)
[2023-02-23] MEDS: amLODIPine BESYLATE 10 MG TABLET (FP) PO SCH (09:34)
[2023-02-23] MEDS: levETIRAcetam 500 MG TABLET (FP) PO SCH ×2 (09:34→21:14)
[2023-02-23] MEDS: PANTOPRAZOLE 40 MG TABLET PO SCH (09:34)
[2023-02-23] MEDS: THIAMINE HCL 100 MG TABLET (FP) PO SCH (09:39)
[2023-02-23] MEDS: INSULIN SLIDING SCALE (NOVOLOG) 1 VIAL SQ SCH (16:54)
[2023-02-23] MEDS: cloNIDine HCL 0.1 MG TABLET PO PRN (21:14)
[2023-02-23] MEDS: ATORVASTATIN CA 20 MG TABLET (FP) PO SCH (21:14)
[2023-02-23] MEDS: MELATONIN 5 MG TABLETS PO PRN (21:14)
[2023-02-23] MEDS: QUEtiapine FUMARATE 25 MG TABLET PO SCH (22:20)
[2023-02-24] MEDS: INSULIN SLIDING SCALE (NOVOLOG) 1 VIAL SQ SCH ×2 (07:25→16:55)
[2023-02-24] MEDS: CARVEDILOL 25 MG TABLET (FP) PO SCH ×2 (09:44→21:29)
[2023-02-24] MEDS: FERROUS SO4 325 MG TABLET (FP) PO SCH (09:44)
[2023-02-24] MEDS: amLODIPine BESYLATE 10 MG TABLET (FP) PO SCH (09:45)
[2023-02-24] MEDS: FOLIC ACID 1 MG TABLET (FP) PO SCH (09:45)
[2023-02-24] MEDS: levETIRAcetam 500 MG TABLET (FP) PO SCH ×2 (09:45→21:29)
[2023-02-24] MEDS: PANTOPRAZOLE 40 MG TABLET PO SCH (09:45)
[2023-02-24] MEDS: THIAMINE HCL 100 MG TABLET (FP) PO SCH (09:45)
[2023-02-24] MEDS: MELATONIN 5 MG TABLETS PO PRN (21:29)
[2023-02-24] MEDS: ATORVASTATIN CA 20 MG TABLET (FP) PO SCH (21:29)
[2023-02-24] MEDS: QUEtiapine FUMARATE 25 MG TABLET PO SCH (21:29)
[2023-02-25] MEDS: INSULIN SLIDING SCALE (NOVOLOG) 1 VIAL SQ SCH ×2 (07:49→16:30)
[2023-02-25] MEDS: CARVEDILOL 25 MG TABLET (FP) PO SCH ×2 (09:51→21:14)
[2023-02-25] MEDS: FERROUS SO4 325 MG TABLET (FP) PO SCH (09:52)
[2023-02-25] MEDS: THIAMINE HCL 100 MG TABLET (FP) PO SCH (09:52)
[2023-02-25] MEDS: PANTOPRAZOLE 40 MG TABLET PO SCH (09:52)
[2023-02-25] MEDS: amLODIPine BESYLATE 10 MG TABLET (FP) PO SCH (09:52)
[2023-02-25] MEDS: levETIRAcetam 500 MG TABLET (FP) PO SCH ×2 (09:52→21:15)
[2023-02-25] MEDS: FOLIC ACID 1 MG TABLET (FP) PO SCH (09:52)
[2023-02-25] MEDS: ATORVASTATIN CA 20 MG TABLET (FP) PO SCH (21:14)
[2023-02-25] MEDS: MELATONIN 5 MG TABLETS PO PRN (21:14)
[2023-02-25] MEDS: QUEtiapine FUMARATE 25 MG TABLET PO SCH (21:15)
[2023-02-26] MEDS: INSULIN SLIDING SCALE (NOVOLOG) 1 VIAL SQ SCH ×2 (07:00→17:49)
[2023-02-26] MEDS: FOLIC ACID 1 MG TABLET (FP) PO SCH (10:11)
[2023-02-26] MEDS: PANTOPRAZOLE 40 MG TABLET PO SCH (10:11)
[2023-02-26] MEDS: CARVEDILOL 25 MG TABLET (FP) PO SCH ×2 (10:11→21:27)
[2023-02-26] MEDS: levETIRAcetam 500 MG TABLET (FP) PO SCH ×2 (10:11→21:27)
[2023-02-26] MEDS: amLODIPine BESYLATE 10 MG TABLET (FP) PO SCH (10:11)
[2023-02-26] MEDS: THIAMINE HCL 100 MG TABLET (FP) PO SCH (10:12)
[2023-02-26] MEDS: FERROUS SO4 325 MG TABLET (FP) PO SCH (10:12)
[2023-02-26] MEDS: MELATONIN 5 MG TABLETS PO PRN (21:27)
[2023-02-26] MEDS: ATORVASTATIN CA 20 MG TABLET (FP) PO SCH (21:27)
[2023-02-26] MEDS: QUEtiapine FUMARATE 25 MG TABLET PO SCH (21:28)
[2023-02-27] MEDS: INSULIN SLIDING SCALE (NOVOLOG) 1 VIAL SQ SCH ×2 (07:27→16:23)
[2023-02-27] MEDS: FERROUS SO4 325 MG TABLET (FP) PO SCH (09:32)
[2023-02-27] MEDS: CARVEDILOL 25 MG TABLET (FP) PO SCH ×2 (09:32→21:07)
[2023-02-27] MEDS: FOLIC ACID 1 MG TABLET (FP) PO SCH (09:32)
[2023-02-27] MEDS: levETIRAcetam 500 MG TABLET (FP) PO SCH ×2 (09:32→21:07)
[2023-02-27] MEDS: amLODIPine BESYLATE 10 MG TABLET (FP) PO SCH (09:32)
[2023-02-27] MEDS: THIAMINE HCL 100 MG TABLET (FP) PO SCH (09:32)
[2023-02-27] MEDS: PANTOPRAZOLE 40 MG TABLET PO SCH (09:33)
[2023-02-27] MEDS: ATORVASTATIN CA 20 MG TABLET (FP) PO SCH (21:07)
[2023-02-27] MEDS: MELATONIN 5 MG TABLETS PO PRN (21:07)
[2023-02-27] MEDS: QUEtiapine FUMARATE 25 MG TABLET PO SCH (21:07)
[2023-02-28] MEDS: INSULIN SLIDING SCALE (NOVOLOG) 1 VIAL SQ SCH ×2 (07:07→16:47)
[2023-02-28] MEDS: levETIRAcetam 500 MG TABLET (FP) PO SCH ×2 (09:46→21:09)
[2023-02-28] MEDS: PANTOPRAZOLE 40 MG TABLET PO SCH (09:46)
[2023-02-28] MEDS: amLODIPine BESYLATE 10 MG TABLET (FP) PO SCH (09:46)
[2023-02-28] MEDS: FERROUS SO4 325 MG TABLET (FP) PO SCH (09:46)
[2023-02-28] MEDS: CARVEDILOL 25 MG TABLET (FP) PO SCH ×2 (09:46→21:10)
[2023-02-28] MEDS: THIAMINE HCL 100 MG TABLET (FP) PO SCH (09:46)
[2023-02-28] MEDS: FOLIC ACID 1 MG TABLET (FP) PO SCH (09:46)
[2023-02-28] MEDS: MELATONIN 5 MG TABLETS PO PRN (21:09)
[2023-02-28] MEDS: ATORVASTATIN CA 20 MG TABLET (FP) PO SCH (21:09)
[2023-02-28] MEDS: QUEtiapine FUMARATE 25 MG TABLET PO SCH (21:10)
[2023-03-01] MEDS: INSULIN SLIDING SCALE (NOVOLOG) 1 VIAL SQ SCH ×2 (07:09→16:59)
[2023-03-01] MEDS: FERROUS SO4 325 MG TABLET (FP) PO SCH (10:19)
[2023-03-01] MEDS: THIAMINE HCL 100 MG TABLET (FP) PO SCH (10:19)
[2023-03-01] MEDS: CARVEDILOL 25 MG TABLET (FP) PO SCH ×2 (10:19→21:11)
[2023-03-01] MEDS: PANTOPRAZOLE 40 MG TABLET PO SCH (10:19)
[2023-03-01] MEDS: levETIRAcetam 500 MG TABLET (FP) PO SCH ×2 (10:19→21:11)
[2023-03-01] MEDS: amLODIPine BESYLATE 10 MG TABLET (FP) PO SCH (10:20)
[2023-03-01] MEDS: FOLIC ACID 1 MG TABLET (FP) PO SCH (10:20)
[2023-03-01] MEDS: ATORVASTATIN CA 20 MG TABLET (FP) PO SCH (21:11)
[2023-03-01] MEDS: QUEtiapine FUMARATE 25 MG TABLET PO SCH (21:12)
[2023-03-01] MEDS: MELATONIN 5 MG TABLETS PO PRN (21:12)
[2023-03-02] MEDS: INSULIN SLIDING SCALE (NOVOLOG) 1 VIAL SQ SCH ×2 (07:01→16:54)
[2023-03-02] MEDS: PANTOPRAZOLE 40 MG TABLET PO SCH (10:27)
[2023-03-02] MEDS: THIAMINE HCL 100 MG TABLET (FP) PO SCH (10:27)
[2023-03-02] MEDS: levETIRAcetam 500 MG TABLET (FP) PO SCH ×2 (10:27→21:31)
[2023-03-02] MEDS: FOLIC ACID 1 MG TABLET (FP) PO SCH (10:27)
[2023-03-02] MEDS: CARVEDILOL 25 MG TABLET (FP) PO SCH ×2 (10:27→21:31)
[2023-03-02] MEDS: amLODIPine BESYLATE 10 MG TABLET (FP) PO SCH (10:27)
[2023-03-02] MEDS: FERROUS SO4 325 MG TABLET (FP) PO SCH (10:28)
[2023-03-02] MEDS: ATORVASTATIN CA 20 MG TABLET (FP) PO SCH (21:31)
[2023-03-02] MEDS: MELATONIN 5 MG TABLETS PO PRN (21:32)
[2023-03-02] MEDS: QUEtiapine FUMARATE 25 MG TABLET PO SCH (21:32)
[2023-03-02 22:05] VITALS: BMI 32.0
[2023-03-03] MEDS: INSULIN SLIDING SCALE (NOVOLOG) 1 VIAL SQ SCH ×2 (06:48→17:06)
[2023-03-03] MEDS: CARVEDILOL 25 MG TABLET (FP) PO SCH ×2 (09:51→21:29)
[2023-03-03] MEDS: amLODIPine BESYLATE 10 MG TABLET (FP) PO SCH (09:52)
[2023-03-03] MEDS: levETIRAcetam 500 MG TABLET (FP) PO SCH ×2 (09:52→21:29)
[2023-03-03] MEDS: FOLIC ACID 1 MG TABLET (FP) PO SCH (09:52)
[2023-03-03] MEDS: FERROUS SO4 325 MG TABLET (FP) PO SCH (09:52)
[2023-03-03] MEDS: THIAMINE HCL 100 MG TABLET (FP) PO SCH (09:52)
[2023-03-03] MEDS: PANTOPRAZOLE 40 MG TABLET PO SCH (09:52)
[2023-03-03] MEDS: QUEtiapine FUMARATE 25 MG TABLET PO SCH (21:29)
[2023-03-03] MEDS: ATORVASTATIN CA 20 MG TABLET (FP) PO SCH (21:29)
[2023-03-03] MEDS: MELATONIN 5 MG TABLETS PO PRN (21:30)
[2023-03-04] MEDS: INSULIN SLIDING SCALE (NOVOLOG) 1 VIAL SQ SCH ×2 (07:48→18:05)
[2023-03-04] MEDS: CARVEDILOL 25 MG TABLET (FP) PO SCH ×2 (09:58→21:33)
[2023-03-04] MEDS: FERROUS SO4 325 MG TABLET (FP) PO SCH (09:59)
[2023-03-04] MEDS: levETIRAcetam 500 MG TABLET (FP) PO SCH ×2 (09:59→21:33)
[2023-03-04] MEDS: PANTOPRAZOLE 40 MG TABLET PO SCH (09:59)
[2023-03-04] MEDS: THIAMINE HCL 100 MG TABLET (FP) PO SCH (09:59)
[2023-03-04] MEDS: FOLIC ACID 1 MG TABLET (FP) PO SCH (09:59)
[2023-03-04] MEDS: amLODIPine BESYLATE 10 MG TABLET (FP) PO SCH (09:59)
[2023-03-04] MEDS: QUEtiapine FUMARATE 25 MG TABLET PO SCH ×2 (21:33→22:43)
[2023-03-04] MEDS: MELATONIN 5 MG TABLETS PO PRN (21:33)
[2023-03-04] MEDS: ATORVASTATIN CA 20 MG TABLET (FP) PO SCH (21:35)
[2023-03-05] MEDS: INSULIN SLIDING SCALE (NOVOLOG) 1 VIAL SQ SCH ×2 (08:00→17:37)
[2023-03-05] MEDS: cloNIDine HCL 0.1 MG TABLET PO PRN ×2 (09:58→21:06)
[2023-03-05] MEDS: levETIRAcetam 500 MG TABLET (FP) PO SCH ×2 (09:58→21:06)
[2023-03-05] MEDS: amLODIPine BESYLATE 10 MG TABLET (FP) PO SCH (09:58)
[2023-03-05] MEDS: PANTOPRAZOLE 40 MG TABLET PO SCH (09:58)
[2023-03-05] MEDS: FERROUS SO4 325 MG TABLET (FP) PO SCH (09:58)
[2023-03-05] MEDS: THIAMINE HCL 100 MG TABLET (FP) PO SCH (09:58)
[2023-03-05] MEDS: CARVEDILOL 25 MG TABLET (FP) PO SCH ×2 (09:59→21:06)
[2023-03-05] MEDS: FOLIC ACID 1 MG TABLET (FP) PO SCH (11:01)
[2023-03-05] MEDS: ATORVASTATIN CA 20 MG TABLET (FP) PO SCH (21:06)
[2023-03-05] MEDS: QUEtiapine FUMARATE 25 MG TABLET PO SCH (21:06)
[2023-03-05] MEDS: MELATONIN 5 MG TABLETS PO PRN (21:07)
[2023-03-06] MEDS: INSULIN SLIDING SCALE (NOVOLOG) 1 VIAL SQ SCH ×2 (06:54→16:44)
[2023-03-06] MEDS: FOLIC ACID 1 MG TABLET (FP) PO SCH (10:07)
[2023-03-06] MEDS: PANTOPRAZOLE 40 MG TABLET PO SCH (10:07)
[2023-03-06] MEDS: FERROUS SO4 325 MG TABLET (FP) PO SCH (10:07)
[2023-03-06] MEDS: THIAMINE HCL 100 MG TABLET (FP) PO SCH (10:07)
[2023-03-06] MEDS: levETIRAcetam 500 MG TABLET (FP) PO SCH ×2 (10:07→21:16)
[2023-03-06] MEDS: amLODIPine BESYLATE 10 MG TABLET (FP) PO SCH (10:07)
[2023-03-06] MEDS: CARVEDILOL 25 MG TABLET (FP) PO SCH ×2 (10:07→21:16)
[2023-03-06] MEDS: ATORVASTATIN CA 20 MG TABLET (FP) PO SCH (21:16)
[2023-03-06] MEDS: MELATONIN 5 MG TABLETS PO PRN (21:16)
[2023-03-06] MEDS: QUEtiapine FUMARATE 25 MG TABLET PO SCH (21:16)
[2023-03-07] MEDS: INSULIN SLIDING SCALE (NOVOLOG) 1 VIAL SQ SCH ×2 (06:42→17:05)
[2023-03-07] MEDS: CARVEDILOL 25 MG TABLET (FP) PO SCH ×2 (09:48→21:27)
[2023-03-07] MEDS: FOLIC ACID 1 MG TABLET (FP) PO SCH (09:49)
[2023-03-07] MEDS: FERROUS SO4 325 MG TABLET (FP) PO SCH (09:49)
[2023-03-07] MEDS: levETIRAcetam 500 MG TABLET (FP) PO SCH ×2 (09:49→21:27)
[2023-03-07] MEDS: THIAMINE HCL 100 MG TABLET (FP) PO SCH (09:49)
[2023-03-07] MEDS: amLODIPine BESYLATE 10 MG TABLET (FP) PO SCH (09:49)
[2023-03-07] MEDS: PANTOPRAZOLE 40 MG TABLET PO SCH (09:49)
[2023-03-07] MEDS: ATORVASTATIN CA 20 MG TABLET (FP) PO SCH (21:27)
[2023-03-07] MEDS: MELATONIN 5 MG TABLETS PO PRN (21:28)
[2023-03-07] MEDS: QUEtiapine FUMARATE 25 MG TABLET PO SCH (21:28)
[2023-03-08] MEDS: INSULIN SLIDING SCALE (NOVOLOG) 1 VIAL SQ SCH (07:19)
[2023-03-08] MEDS: levETIRAcetam 500 MG TABLET (FP) PO SCH ×2 (10:01→21:05)
[2023-03-08] MEDS: PANTOPRAZOLE 40 MG TABLET PO SCH (10:01)
[2023-03-08] MEDS: FOLIC ACID 1 MG TABLET (FP) PO SCH (10:01)
[2023-03-08] MEDS: amLODIPine BESYLATE 10 MG TABLET (FP) PO SCH (10:01)
[2023-03-08] MEDS: CARVEDILOL 25 MG TABLET (FP) PO SCH ×2 (10:01→21:05)
[2023-03-08] MEDS: FERROUS SO4 325 MG TABLET (FP) PO SCH (10:01)
[2023-03-08] MEDS: THIAMINE HCL 100 MG TABLET (FP) PO SCH (10:01)
[2023-03-08] MEDS: MELATONIN 5 MG TABLETS PO PRN (21:05)
[2023-03-08] MEDS: QUEtiapine FUMARATE 25 MG TABLET PO SCH (21:05)
[2023-03-08] MEDS: ATORVASTATIN CA 20 MG TABLET (FP) PO SCH (21:05)
[2023-03-09] MEDS: levETIRAcetam 500 MG TABLET (FP) PO SCH ×2 (09:51→21:14)
[2023-03-09] MEDS: amLODIPine BESYLATE 10 MG TABLET (FP) PO SCH (09:51)
[2023-03-09] MEDS: PANTOPRAZOLE 40 MG TABLET PO SCH (09:51)
[2023-03-09] MEDS: FOLIC ACID 1 MG TABLET (FP) PO SCH (09:51)
[2023-03-09] MEDS: THIAMINE HCL 100 MG TABLET (FP) PO SCH (09:51)
[2023-03-09] MEDS: FERROUS SO4 325 MG TABLET (FP) PO SCH (09:51)
[2023-03-09] MEDS: CARVEDILOL 25 MG TABLET (FP) PO SCH ×2 (09:52→21:14)
[2023-03-09] MEDS: ATORVASTATIN CA 20 MG TABLET (FP) PO SCH (21:14)
[2023-03-09] MEDS: QUEtiapine FUMARATE 25 MG TABLET PO SCH (21:15)
[2023-03-10 08:57] VITALS: TEMP 97.1
[2023-03-10] MEDS: CARVEDILOL 25 MG TABLET (FP) PO SCH (09:37)
[2023-03-10] MEDS: FERROUS SO4 325 MG TABLET (FP) PO SCH (09:37)
[2023-03-10] MEDS: amLODIPine BESYLATE 10 MG TABLET (FP) PO SCH (09:38)
[2023-03-10] MEDS: levETIRAcetam 500 MG TABLET (FP) PO SCH (09:38)
[2023-03-10] MEDS: THIAMINE HCL 100 MG TABLET (FP) PO SCH (09:38)
[2023-03-10] MEDS: PANTOPRAZOLE 40 MG TABLET PO SCH (09:38)
[2023-03-10] MEDS: FOLIC ACID 1 MG TABLET (FP) PO SCH (09:38)
[2023-03-10 10:42] VITALS: BP 137/73; PULSE 80; RESP 17
== END 2023-03-03 14:48 | disposition home or self-care (01) | DRG 772 ==
LOC: YASAS 16:59 → Y3E 19:51
PROVIDERS: ADMIT Allergy & Immunology; ATTEND Psychiatry & Neurology Pain Medicine
PROC: HZ42ZZZ Group Counseling for Substance Abuse Treatment, Cognitive-Behavioral (ICD-10-PCS; principal; 2023-02-12)
DX: F10.20 Alcohol dependence, uncomplicated (principal); F20.9 Schizophrenia, unspecified; F32.A Depression, unspecified; E78.5 Hyperlipidemia, unspecified; I25.10 Atherosclerotic heart disease of native coronary artery without angina pectoris; I12.9 Hypertensive chronic kidney disease with stage 1 through stage 4 chronic kidney disease, or unspecified chronic kidney disease; N18.9 Chronic kidney disease, unspecified; E11.9 Type 2 diabetes mellitus without complications; G40.909 Epilepsy, unspecified, not intractable, without status epilepticus; Z85.51 Personal history of malignant neoplasm of bladder; Z86.19 Personal history of other infectious and parasitic diseases; Z59.00 Homelessness unspecified; Z88.8 Allergy status to other drugs, medicaments and biological substances
CPT/HCPCS: 36415; 80053; 80177; 82962; 85025

== ENCOUNTER 2023-05-23 13:24 | Inpatient (IN) | payer OTHER ==
[2023-05-23 15:14] LABS: EPI CELLS 14 /uL (0-25.1); HYALINE CASTS 1 /uL (0-3.1); PH,URINE 5.5 (5.0-8.0); URINE APPEARANCE CLEAR; URINE BACTERIA 31 /uL (0-1359); URINE BILIRUBIN NEGATIVE (NEGATIVE); URINE COLOR YELLOW; URINE GLUCOSE (UA) TRACE (NEGATIVE); URINE KETONE NEGATIVE (NEGATIVE); URINE LEUK ESTERASE NEGATIVE (NEGATIVE); URINE NITRITE NEGATIVE (NEGATIVE); URINE PROTEIN 4+ (NEGATIVE); URINE RBC 495 /uL (0-23.9); URINE UROBILINOGEN 0.2 mg/dL (0.2-1.0); URINE WBC 20 /uL (0-25.8)
[2023-05-23 15:39] LABS: BASO % 0.8 % (0-2.0); EOS % 2.1 % (0-4.5); HEMATOCRIT 21.7 % (35.4-49); HEMOGLOBIN 7.1 GM/dL (11.7-16.9); LYMPH % 17.5 % (8-40); MCH 27.3 pg (25.7-33.7); MCHC 32.6 g/dl (32.0-35.9); MEAN CELL VOLUME 83.8 fl (80-96); MEAN PLT VOLUME 6.5 fl (7.5-11.1); MONO % 7.8 % (3.8-10.2); NEUT % 71.8 % (42.8-82.8); PLATELET COUNT 229 10^3/uL (134-434); RBC 2.59 M/mm3 (4.00-5.60); RDW 16.3 % (11.9-15.9); WHITE BLOOD COUNT 6.2 K/mm3 (4.0-10.0)
[2023-05-23 16:14] LABS: CHLORIDE 108 mmol/L (98-107); POTASSIUM 4.4 mmol/L (3.5-5.1); SODIUM 139 mmol/L (136-145)
[2023-05-23 16:16] LABS: ALBUMIN 2.7 g/dl (3.4-5.0); ANION GAP 10 MMOL/L (8-16); CALCIUM 7.7 mg/dL (8.5-10.1); CO2 22 mmol/L (21-32); GLUCOSE,RANDOM 175 mg/dL (74-106); LIPASE 306 U/L (73-393)
[2023-05-23 16:19] LABS: CREATININE 5.4 mg/dL (0.55-1.3); SGOT/AST 25 U/L (15-37); SGPT/ALT 19 U/L (13-61)
[2023-05-23 16:21] LABS: BILIRUBIN,TOTAL < 0.1 mg/dL (0.2-1); TOT PROT 6.8 g/dl (6.4-8.2)
[2023-05-23 16:22] LABS: ALK PHOS 77 U/L (45-117)
[2023-05-23] MEDS ORDERED: hydrALAZINE HCL 20 MG/ML VIAL IVPUSH ONE (17:48)
[2023-05-23] MEDS ORDERED: LORazepam 2 MG TABLET PO PRN (17:49)
[2023-05-23] MEDS ORDERED: FOLIC ACID 1 MG TABLET (FP) ONE (19:28)
[2023-05-23] MEDS ORDERED: hydrALAZINE HCL 20 MG/ML VIAL ONE (19:28)
[2023-05-23] MEDS ORDERED: THIAMINE HCL 200 MG/2 ML VIAL ONE (19:28)
[2023-05-23] MEDS: FOLIC ACID 1 MG TABLET (FP) PO SCH (19:35)
[2023-05-23] MEDS ORDERED: hydrALAZINE HCL 25 MG TABLET (FP) ONE (22:37)
[2023-05-23] MEDS ORDERED: ATORVASTATIN CA 20 MG TABLET (FP) ONE (22:37)
[2023-05-23] MEDS ORDERED: QUEtiapine FUMARATE 25 MG TABLET ONE (22:37)
[2023-05-23] MEDS ORDERED: levETIRAcetam 500 MG TABLET (FP) PO ONE (22:37)
[2023-05-23] MEDS: hydrALAZINE HCL 25 MG TABLET (FP) PO SCH (22:56)
[2023-05-23] MEDS: levETIRAcetam 500 MG TABLET (FP) PO SCH (22:56)
[2023-05-23] MEDS: QUEtiapine FUMARATE 25 MG TABLET PO SCH (22:56)
[2023-05-23] MEDS: ATORVASTATIN CA 20 MG TABLET (FP) PO SCH (22:56)
[2023-05-23] MEDS: HEPARIN NA (PORCINE) 5,000 UNITS/ML 1ML VIAL SQ SCH (22:56)
[2023-05-23] MEDS: INSULIN SLIDING SCALE (NOVOLOG) 1 VIAL SQ SCH (23:00)
[2023-05-23] MEDS: THIAMINE HCL 200 MG/2 ML VIAL IVPB SCH (23:55)
[2023-05-24] MEDS: INSULIN SLIDING SCALE (NOVOLOG) 1 VIAL SQ SCH ×4 (08:39→21:55)
[2023-05-24 09:09] LABS: BASO % 0.8 % (0-2.0); EOS % 4.5 % (0-4.5); HEMATOCRIT 22.7 % (35.4-49); HEMOGLOBIN 7.5 GM/dL (11.7-16.9); LYMPH % 21.3 % (8-40); MCH 28.1 pg (25.7-33.7); MCHC 33.1 g/dl (32.0-35.9); MEAN CELL VOLUME 84.8 fl (80-96); MEAN PLT VOLUME 6.4 fl (7.5-11.1); MONO % 8.7 % (3.8-10.2); NEUT % 64.7 % (42.8-82.8); PLATELET COUNT 245 10^3/uL (134-434); RBC 2.68 M/mm3 (4.00-5.60); RDW 16.5 % (11.9-15.9); WHITE BLOOD COUNT 5.9 K/mm3 (4.0-10.0)
[2023-05-24 09:55] LABS: POTASSIUM 4.2 mmol/L (3.5-5.1)
[2023-05-24 09:57] LABS: CALCIUM 7.8 mg/dL (8.5-10.1)
[2023-05-24 09:58] LABS: ALBUMIN 2.6 g/dl (3.4-5.0); BLOOD UREA NITROGEN 77.4 mg/dL (7-18); MAGNESIUM 1.7 mg/dL (1.8-2.4)
[2023-05-24 10:01] LABS: CREATININE 5.3 mg/dL (0.55-1.3); PHOSPHOROUS 5.1 mg/dL (2.5-4.9)
[2023-05-24 10:02] LABS: BILIRUBIN,TOTAL 0.2 mg/dL (0.2-1); TOT PROT 6.6 g/dl (6.4-8.2)
[2023-05-24] MEDS: levETIRAcetam 500 MG TABLET (FP) PO SCH ×2 (10:21→21:51)
[2023-05-24] MEDS: HEPARIN NA (PORCINE) 5,000 UNITS/ML 1ML VIAL SQ SCH ×2 (10:21→21:51)
[2023-05-24] MEDS: FOLIC ACID 1 MG TABLET (FP) PO SCH (10:21)
[2023-05-24] MEDS: hydrALAZINE HCL 25 MG TABLET (FP) PO SCH ×2 (10:21→21:51)
[2023-05-24] MEDS: PANTOPRAZOLE 40 MG TABLET PO SCH (10:22)
[2023-05-24] MEDS: THIAMINE HCL 200 MG/2 ML VIAL IVPB SCH (10:58)
[2023-05-24] MEDS ORDERED: THIAMINE HCL 100 MG TABLET (FP) ONE (10:59)
[2023-05-24] MEDS: THIAMINE HCL 100 MG TABLET (FP) PO SCH (11:00)
[2023-05-24 15:09] LABS: IRON SERUM 69 ug/dL (50-175); TOTAL IRON BINDING CAPACITY 228 ug/dL (250-450)
[2023-05-24] MEDS ORDERED: INSULIN (NOVOLOG) ASPART 100 UNITS/ML 10ML VIAL ONE ×2 (21:12→21:14)
[2023-05-24] MEDS: ATORVASTATIN CA 20 MG TABLET (FP) PO SCH (21:52)
[2023-05-24] MEDS: QUEtiapine FUMARATE 25 MG TABLET PO SCH (21:52)
[2023-05-25] MEDS: INSULIN SLIDING SCALE (NOVOLOG) 1 VIAL SQ SCH ×4 (06:54→22:24)
[2023-05-25 07:08] LABS: BASO % 0.8 % (0-2.0); EOS % 5.1 % (0-4.5); HEMATOCRIT 18.9 % (35.4-49); LYMPH % 34.3 % (8-40); MCH 27.4 pg (25.7-33.7); MCHC 32.5 g/dl (32.0-35.9); MEAN CELL VOLUME 84.5 fl (80-96); MEAN PLT VOLUME 6.9 fl (7.5-11.1); MONO % 7.7 % (3.8-10.2); NEUT % 52.1 % (42.8-82.8); PLATELET COUNT 183 10^3/uL (134-434); RBC 2.24 M/mm3 (4.00-5.60); RDW 16.6 % (11.9-15.9); WHITE BLOOD COUNT 4.8 K/mm3 (4.0-10.0)
[2023-05-25 07:10] LABS: HEMOGLOBIN 6.1 GM/dL (11.7-16.9)
[2023-05-25 07:29] LABS: ALBUMIN 2.3 g/dl (3.4-5.0); BLOOD UREA NITROGEN 79.4 mg/dL (7-18)
[2023-05-25 07:32] LABS: CREATININE 5.6 mg/dL (0.55-1.3)
[2023-05-25 07:34] LABS: BILIRUBIN,TOTAL 0.2 mg/dL (0.2-1); TOT PROT 5.8 g/dl (6.4-8.2)
[2023-05-25] MEDS: HEPARIN NA (PORCINE) 5,000 UNITS/ML 1ML VIAL SQ SCH ×2 (09:57→22:15)
[2023-05-25] MEDS: THIAMINE HCL 100 MG TABLET (FP) PO SCH (09:57)
[2023-05-25] MEDS: PANTOPRAZOLE 40 MG TABLET PO SCH (09:57)
[2023-05-25] MEDS: levETIRAcetam 500 MG TABLET (FP) PO SCH ×2 (09:57→22:15)
[2023-05-25] MEDS: FOLIC ACID 1 MG TABLET (FP) PO SCH (09:57)
[2023-05-25] MEDS: hydrALAZINE HCL 25 MG TABLET (FP) PO SCH ×2 (09:57→22:15)
[2023-05-25] MEDS: SEVELAMER CARBONATE 800 MG TAB (FP) PO SCH (16:41)
[2023-05-25] MEDS ORDERED: EPOETIN ALFA-EPBX 10,000 UNIT/ML VIAL SQ ONE (17:00)
[2023-05-25] MEDS ORDERED: IRON SUCROSE INJECTION 100 MG in SODIUM CHLORIDE 95 ML IVPB ONE (17:00)
[2023-05-25] MEDS: ATORVASTATIN CA 20 MG TABLET (FP) PO SCH (22:15)
[2023-05-25] MEDS: QUEtiapine FUMARATE 25 MG TABLET PO SCH (22:15)
[2023-05-26] MEDS: INSULIN SLIDING SCALE (NOVOLOG) 1 VIAL SQ SCH ×4 (06:54→21:53)
[2023-05-26] MEDS: SEVELAMER CARBONATE 800 MG TAB (FP) PO SCH ×3 (08:35→17:12)
[2023-05-26] MEDS: HEPARIN NA (PORCINE) 5,000 UNITS/ML 1ML VIAL SQ SCH ×2 (09:12→21:52)
[2023-05-26] MEDS: PANTOPRAZOLE 40 MG TABLET PO SCH (09:13)
[2023-05-26] MEDS: THIAMINE HCL 100 MG TABLET (FP) PO SCH (09:13)
[2023-05-26] MEDS: levETIRAcetam 500 MG TABLET (FP) PO SCH ×2 (09:13→21:53)
[2023-05-26] MEDS: hydrALAZINE HCL 25 MG TABLET (FP) PO SCH ×2 (09:13→21:53)
[2023-05-26] MEDS: FOLIC ACID 1 MG TABLET (FP) PO SCH (09:13)
[2023-05-26 12:54] LABS: BASO % 0.5 % (0-2.0); EOS % 4.5 % (0-4.5); HEMATOCRIT 23.1 % (35.4-49); HEMOGLOBIN 7.6 GM/dL (11.7-16.9); MCH 28.1 pg (25.7-33.7); MCHC 32.7 g/dl (32.0-35.9); MEAN CELL VOLUME 85.9 fl (80-96); MEAN PLT VOLUME 7.1 fl (7.5-11.1); MONO % 6.7 % (3.8-10.2); NEUT % 64.3 % (42.8-82.8); PLATELET COUNT 215 10^3/uL (134-434); RBC 2.69 M/mm3 (4.00-5.60); RDW 15.8 % (11.9-15.9); WHITE BLOOD COUNT 5.5 K/mm3 (4.0-10.0)
[2023-05-26 13:15] LABS: ALBUMIN 2.4 g/dl (3.4-5.0); BLOOD UREA NITROGEN 76.2 mg/dL (7-18)
[2023-05-26 13:18] LABS: CREATININE 5.8 mg/dL (0.55-1.3)
[2023-05-26 13:20] LABS: BILIRUBIN,TOTAL 0.3 mg/dL (0.2-1); TOT PROT 5.9 g/dl (6.4-8.2)
[2023-05-26] MEDS: ATORVASTATIN CA 20 MG TABLET (FP) PO SCH (21:53)
[2023-05-26] MEDS: QUEtiapine FUMARATE 25 MG TABLET PO SCH (21:53)
[2023-05-26] MEDS ORDERED: amLODIPine BESYLATE 10 MG TABLET (FP) PO ONE (23:12)
[2023-05-27] MEDS: INSULIN SLIDING SCALE (NOVOLOG) 1 VIAL SQ SCH ×4 (07:12→21:43)
[2023-05-27] MEDS: SEVELAMER CARBONATE 800 MG TAB (FP) PO SCH ×3 (09:52→17:15)
[2023-05-27] MEDS: HEPARIN NA (PORCINE) 5,000 UNITS/ML 1ML VIAL SQ SCH ×2 (09:52→21:32)
[2023-05-27] MEDS: THIAMINE HCL 100 MG TABLET (FP) PO SCH (09:53)
[2023-05-27] MEDS: hydrALAZINE HCL 50 MG TABLET (FP) PO SCH ×2 (09:53→21:32)
[2023-05-27] MEDS: FOLIC ACID 1 MG TABLET (FP) PO SCH (09:53)
[2023-05-27] MEDS: levETIRAcetam 500 MG TABLET (FP) PO SCH ×2 (09:53→21:32)
[2023-05-27] MEDS: PANTOPRAZOLE 40 MG TABLET PO SCH (09:53)
[2023-05-27 12:52] LABS: BASO % 0.5 % (0-2.0); EOS % 4.6 % (0-4.5); HEMATOCRIT 24.1 % (35.4-49); LYMPH % 24.5 % (8-40); MCH 28.3 pg (25.7-33.7); MCHC 33.2 g/dl (32.0-35.9); MEAN CELL VOLUME 85.3 fl (80-96); MEAN PLT VOLUME 6.9 fl (7.5-11.1); MONO % 5.3 % (3.8-10.2); NEUT % 65.1 % (42.8-82.8); PLATELET COUNT 221 10^3/uL (134-434); RBC 2.83 M/mm3 (4.00-5.60); RDW 16.2 % (11.9-15.9); WHITE BLOOD COUNT 6.2 K/mm3 (4.0-10.0)
[2023-05-27 13:26] LABS: ALBUMIN 2.5 g/dl (3.4-5.0); BLOOD UREA NITROGEN 81.1 mg/dL (7-18); CALCIUM 7.2 mg/dL (8.5-10.1)
[2023-05-27 13:29] LABS: CREATININE 5.9 mg/dL (0.55-1.3)
[2023-05-27 13:31] LABS: BILIRUBIN,TOTAL 0.2 mg/dL (0.2-1); TOT PROT 6.5 g/dl (6.4-8.2)
[2023-05-27] MEDS: ATORVASTATIN CA 20 MG TABLET (FP) PO SCH (21:32)
[2023-05-27] MEDS: QUEtiapine FUMARATE 25 MG TABLET PO SCH (21:32)
[2023-05-28] MEDS: INSULIN SLIDING SCALE (NOVOLOG) 1 VIAL SQ SCH ×4 (06:03→22:53)
[2023-05-28] MEDS: SEVELAMER CARBONATE 800 MG TAB (FP) PO SCH ×3 (08:58→16:58)
[2023-05-28] MEDS: hydrALAZINE HCL 50 MG TABLET (FP) PO SCH ×2 (10:24→22:56)
[2023-05-28] MEDS: FOLIC ACID 1 MG TABLET (FP) PO SCH (10:24)
[2023-05-28] MEDS: levETIRAcetam 500 MG TABLET (FP) PO SCH ×2 (10:24→22:56)
[2023-05-28] MEDS: THIAMINE HCL 100 MG TABLET (FP) PO SCH (10:24)
[2023-05-28] MEDS: PANTOPRAZOLE 40 MG TABLET PO SCH (10:24)
[2023-05-28] MEDS: HEPARIN NA (PORCINE) 5,000 UNITS/ML 1ML VIAL SQ SCH ×2 (10:25→22:56)
[2023-05-28] MEDS: QUEtiapine FUMARATE 25 MG TABLET PO SCH (22:56)
[2023-05-28] MEDS: ATORVASTATIN CA 20 MG TABLET (FP) PO SCH (22:56)
[2023-05-29] MEDS: INSULIN SLIDING SCALE (NOVOLOG) 1 VIAL SQ SCH ×3 (06:32→16:48)
[2023-05-29] MEDS: SEVELAMER CARBONATE 800 MG TAB (FP) PO SCH ×3 (11:36→16:53)
[2023-05-29] MEDS: PANTOPRAZOLE 40 MG TABLET PO SCH (11:36)
[2023-05-29] MEDS: FOLIC ACID 1 MG TABLET (FP) PO SCH (11:36)
[2023-05-29] MEDS: hydrALAZINE HCL 50 MG TABLET (FP) PO SCH ×2 (11:36→22:32)
[2023-05-29] MEDS: levETIRAcetam 500 MG TABLET (FP) PO SCH ×2 (11:36→22:27)
[2023-05-29] MEDS: THIAMINE HCL 100 MG TABLET (FP) PO SCH (11:37)
[2023-05-29] MEDS: HEPARIN NA (PORCINE) 5,000 UNITS/ML 1ML VIAL SQ SCH ×2 (11:37→22:26)
[2023-05-29] MEDS: QUEtiapine FUMARATE 25 MG TABLET PO SCH (22:27)
[2023-05-29] MEDS: ATORVASTATIN CA 20 MG TABLET (FP) PO SCH (22:27)
[2023-05-30] MEDS: INSULIN SLIDING SCALE (NOVOLOG) 1 VIAL SQ SCH ×5 (07:50→21:58)
[2023-05-30] MEDS: SEVELAMER CARBONATE 800 MG TAB (FP) PO SCH ×3 (08:56→17:07)
[2023-05-30] MEDS: PANTOPRAZOLE 40 MG TABLET PO SCH (09:00)
[2023-05-30] MEDS: THIAMINE HCL 100 MG TABLET (FP) PO SCH (09:00)
[2023-05-30] MEDS: hydrALAZINE HCL 50 MG TABLET (FP) PO SCH ×2 (09:00→21:55)
[2023-05-30] MEDS: HEPARIN NA (PORCINE) 5,000 UNITS/ML 1ML VIAL SQ SCH ×2 (09:00→21:55)
[2023-05-30] MEDS: FOLIC ACID 1 MG TABLET (FP) PO SCH (09:00)
[2023-05-30] MEDS: levETIRAcetam 500 MG TABLET (FP) PO SCH ×2 (09:01→21:55)
[2023-05-30] MEDS: ATORVASTATIN CA 20 MG TABLET (FP) PO SCH (21:55)
[2023-05-30] MEDS: QUEtiapine FUMARATE 25 MG TABLET PO SCH (21:58)
[2023-05-31] MEDS: INSULIN SLIDING SCALE (NOVOLOG) 1 VIAL SQ SCH ×4 (07:06→21:26)
[2023-05-31] MEDS: SEVELAMER CARBONATE 800 MG TAB (FP) PO SCH ×3 (08:14→18:11)
[2023-05-31] MEDS: PANTOPRAZOLE 40 MG TABLET PO SCH (10:46)
[2023-05-31] MEDS: THIAMINE HCL 100 MG TABLET (FP) PO SCH (10:46)
[2023-05-31] MEDS: levETIRAcetam 500 MG TABLET (FP) PO SCH ×2 (10:46→21:18)
[2023-05-31] MEDS: HEPARIN NA (PORCINE) 5,000 UNITS/ML 1ML VIAL SQ SCH ×3 (10:46→21:18)
[2023-05-31] MEDS: hydrALAZINE HCL 50 MG TABLET (FP) PO SCH ×2 (10:46→21:18)
[2023-05-31] MEDS: FOLIC ACID 1 MG TABLET (FP) PO SCH (10:46)
[2023-05-31] MEDS: IRON SUCROSE INJECTION 100 MG in SODIUM CHLORIDE 95 ML IVPB ONE ×3 (11:23→19:17)
[2023-05-31] MEDS ORDERED: EPOETIN ALFA-EPBX 10,000 UNIT/ML VIAL SQ ONE (16:49)
[2023-05-31] MEDS: QUEtiapine FUMARATE 25 MG TABLET PO SCH ×2 (21:18→21:23)
[2023-05-31] MEDS: ATORVASTATIN CA 20 MG TABLET (FP) PO SCH (21:18)
[2023-06-01] MEDS: INSULIN SLIDING SCALE (NOVOLOG) 1 VIAL SQ SCH ×3 (07:09→23:26)
[2023-06-01] MEDS: THIAMINE HCL 100 MG TABLET (FP) PO SCH (11:09)
[2023-06-01] MEDS: hydrALAZINE HCL 50 MG TABLET (FP) PO SCH ×2 (11:10→23:27)
[2023-06-01] MEDS: SEVELAMER CARBONATE 800 MG TAB (FP) PO SCH ×3 (11:10→19:11)
[2023-06-01] MEDS: PANTOPRAZOLE 40 MG TABLET PO SCH (11:10)
[2023-06-01] MEDS: FOLIC ACID 1 MG TABLET (FP) PO SCH (11:10)
[2023-06-01] MEDS: HEPARIN NA (PORCINE) 5,000 UNITS/ML 1ML VIAL SQ SCH ×2 (11:10→23:28)
[2023-06-01] MEDS: levETIRAcetam 500 MG TABLET (FP) PO SCH ×2 (11:16→23:28)
[2023-06-01] MEDS: ATORVASTATIN CA 20 MG TABLET (FP) PO SCH (23:27)
[2023-06-01] MEDS: QUEtiapine FUMARATE 25 MG TABLET PO SCH (23:28)
[2023-06-02] MEDS: INSULIN SLIDING SCALE (NOVOLOG) 1 VIAL SQ SCH ×4 (06:50→22:04)
[2023-06-02] MEDS: SEVELAMER CARBONATE 800 MG TAB (FP) PO SCH ×3 (08:28→17:09)
[2023-06-02] MEDS: THIAMINE HCL 100 MG TABLET (FP) PO SCH (10:22)
[2023-06-02] MEDS: FOLIC ACID 1 MG TABLET (FP) PO SCH (10:22)
[2023-06-02] MEDS: hydrALAZINE HCL 50 MG TABLET (FP) PO SCH ×2 (10:22→21:57)
[2023-06-02] MEDS: PANTOPRAZOLE 40 MG TABLET PO SCH (10:22)
[2023-06-02] MEDS: HEPARIN NA (PORCINE) 5,000 UNITS/ML 1ML VIAL SQ SCH ×2 (10:22→21:57)
[2023-06-02] MEDS: levETIRAcetam 500 MG TABLET (FP) PO SCH ×2 (10:22→21:57)
[2023-06-02] MEDS: QUEtiapine FUMARATE 25 MG TABLET PO SCH (21:57)
[2023-06-02] MEDS: ATORVASTATIN CA 20 MG TABLET (FP) PO SCH (21:57)
[2023-06-03] MEDS: INSULIN SLIDING SCALE (NOVOLOG) 1 VIAL SQ SCH ×4 (08:18→22:33)
[2023-06-03] MEDS: SEVELAMER CARBONATE 800 MG TAB (FP) PO SCH ×3 (08:18→17:27)
[2023-06-03] MEDS: PANTOPRAZOLE 40 MG TABLET PO SCH (09:42)
[2023-06-03] MEDS: FOLIC ACID 1 MG TABLET (FP) PO SCH (09:42)
[2023-06-03] MEDS: hydrALAZINE HCL 50 MG TABLET (FP) PO SCH ×2 (09:42→17:27)
[2023-06-03] MEDS: THIAMINE HCL 100 MG TABLET (FP) PO SCH (09:42)
[2023-06-03] MEDS: levETIRAcetam 500 MG TABLET (FP) PO SCH ×2 (09:42→22:34)
[2023-06-03] MEDS: HEPARIN NA (PORCINE) 5,000 UNITS/ML 1ML VIAL SQ SCH ×2 (09:42→22:35)
[2023-06-03] MEDS ORDERED: hydrALAZINE HCL 50 MG TABLET (FP) PO SCH (14:00)
[2023-06-03] MEDS ORDERED: amLODIPine BESYLATE 5 MG TABLET (FP) PO SCH (22:00)
[2023-06-03] MEDS: amLODIPine BESYLATE 10 MG TABLET (FP) PO SCH (22:33)
[2023-06-03] MEDS: QUEtiapine FUMARATE 25 MG TABLET PO SCH (22:33)
[2023-06-03] MEDS: ATORVASTATIN CA 20 MG TABLET (FP) PO SCH (22:34)
[2023-06-04] MEDS: INSULIN SLIDING SCALE (NOVOLOG) 1 VIAL SQ SCH ×3 (07:40→16:45)
[2023-06-04] MEDS: SEVELAMER CARBONATE 800 MG TAB (FP) PO SCH ×3 (08:44→17:41)
[2023-06-04] MEDS: FOLIC ACID 1 MG TABLET (FP) PO SCH (11:22)
[2023-06-04] MEDS: levETIRAcetam 500 MG TABLET (FP) PO SCH ×2 (11:22→22:22)
[2023-06-04] MEDS: HEPARIN NA (PORCINE) 5,000 UNITS/ML 1ML VIAL SQ SCH ×2 (11:22→22:21)
[2023-06-04] MEDS: THIAMINE HCL 100 MG TABLET (FP) PO SCH (11:22)
[2023-06-04] MEDS: hydrALAZINE HCL 50 MG TABLET (FP) PO SCH ×2 (11:22→17:42)
[2023-06-04] MEDS: PANTOPRAZOLE 40 MG TABLET PO SCH (11:22)
[2023-06-04] MEDS: QUEtiapine FUMARATE 25 MG TABLET PO SCH (22:00)
[2023-06-04] MEDS: ATORVASTATIN CA 20 MG TABLET (FP) PO SCH (22:21)
[2023-06-04] MEDS: amLODIPine BESYLATE 10 MG TABLET (FP) PO SCH (22:22)
[2023-06-05] MEDS: SEVELAMER CARBONATE 800 MG TAB (FP) PO SCH ×3 (08:28→18:03)
[2023-06-05] MEDS: THIAMINE HCL 100 MG TABLET (FP) PO SCH (11:02)
[2023-06-05] MEDS: PANTOPRAZOLE 40 MG TABLET PO SCH (11:03)
[2023-06-05] MEDS: HEPARIN NA (PORCINE) 5,000 UNITS/ML 1ML VIAL SQ SCH ×2 (11:03→21:37)
[2023-06-05] MEDS: levETIRAcetam 500 MG TABLET (FP) PO SCH ×2 (11:03→21:37)
[2023-06-05] MEDS: hydrALAZINE HCL 50 MG TABLET (FP) PO SCH ×2 (11:03→18:03)
[2023-06-05] MEDS: FOLIC ACID 1 MG TABLET (FP) PO SCH (11:03)
[2023-06-05] MEDS: INSULIN SLIDING SCALE (NOVOLOG) 1 VIAL SQ SCH ×5 (11:48→21:53)
[2023-06-05] MEDS: amLODIPine BESYLATE 10 MG TABLET (FP) PO SCH (21:37)
[2023-06-05] MEDS: ATORVASTATIN CA 20 MG TABLET (FP) PO SCH (21:37)
[2023-06-05] MEDS: QUEtiapine FUMARATE 25 MG TABLET PO SCH ×2 (21:37→21:46)
[2023-06-06] MEDS: INSULIN SLIDING SCALE (NOVOLOG) 1 VIAL SQ SCH ×3 (06:32→21:52)
[2023-06-06] MEDS: SEVELAMER CARBONATE 800 MG TAB (FP) PO SCH ×3 (07:51→17:07)
[2023-06-06] MEDS: FOLIC ACID 1 MG TABLET (FP) PO SCH (10:40)
[2023-06-06] MEDS: levETIRAcetam 500 MG TABLET (FP) PO SCH ×2 (10:40→21:46)
[2023-06-06] MEDS: hydrALAZINE HCL 50 MG TABLET (FP) PO SCH ×2 (10:40→17:07)
[2023-06-06] MEDS: THIAMINE HCL 100 MG TABLET (FP) PO SCH (10:41)
[2023-06-06] MEDS: HEPARIN NA (PORCINE) 5,000 UNITS/ML 1ML VIAL SQ SCH (10:41)
[2023-06-06] MEDS: PANTOPRAZOLE 40 MG TABLET PO SCH (10:41)
[2023-06-06] MEDS ORDERED: INSULIN (NOVOLOG) ASPART 100 UNITS/ML 10ML VIAL ONE (10:58)
[2023-06-06 15:47] VITALS: BMI 38.9
[2023-06-06] MEDS: ATORVASTATIN CA 20 MG TABLET (FP) PO SCH (21:47)
[2023-06-06] MEDS: QUEtiapine FUMARATE 25 MG TABLET PO SCH (21:47)
[2023-06-06] MEDS: amLODIPine BESYLATE 10 MG TABLET (FP) PO SCH (21:47)
[2023-06-07] MEDS: INSULIN SLIDING SCALE (NOVOLOG) 1 VIAL SQ SCH ×4 (07:10→21:38)
[2023-06-07] MEDS: SEVELAMER CARBONATE 800 MG TAB (FP) PO SCH ×3 (08:38→17:43)
[2023-06-07] MEDS: FOLIC ACID 1 MG TABLET (FP) PO SCH (09:49)
[2023-06-07] MEDS: hydrALAZINE HCL 50 MG TABLET (FP) PO SCH ×2 (09:49→17:44)
[2023-06-07] MEDS: THIAMINE HCL 100 MG TABLET (FP) PO SCH (09:50)
[2023-06-07] MEDS: levETIRAcetam 500 MG TABLET (FP) PO SCH ×2 (09:50→21:37)
[2023-06-07] MEDS: PANTOPRAZOLE 40 MG TABLET PO SCH (09:50)
[2023-06-07] MEDS: amLODIPine BESYLATE 10 MG TABLET (FP) PO SCH (21:37)
[2023-06-07] MEDS: ATORVASTATIN CA 20 MG TABLET (FP) PO SCH (21:37)
[2023-06-07] MEDS: QUEtiapine FUMARATE 25 MG TABLET PO SCH (21:38)
[2023-06-07 22:15] VITALS: RESP 18
[2023-06-08 06:18] VITALS: BP 152/88; PULSE 85; TEMP 98.7
[2023-06-08] MEDS: INSULIN SLIDING SCALE (NOVOLOG) 1 VIAL SQ SCH (06:29)
[2023-06-08 08:34] LABS: HEMOGLOBIN 8.5 GM/dL (11.7-16.9); MCH 28.5 pg (25.7-33.7); MCHC 32.7 g/dl (32.0-35.9); MEAN CELL VOLUME 87.2 fl (80-96); PLATELET COUNT 305 10^3/uL (134-434); RBC 2.98 M/mm3 (4.00-5.60); RDW 17.4 % (11.9-15.9); WHITE BLOOD COUNT 5.5 K/mm3 (4.0-10.0)
[2023-06-08] MEDS: SEVELAMER CARBONATE 800 MG TAB (FP) PO SCH (08:50)
[2023-06-08 08:52] LABS: POTASSIUM 4.1 mmol/L (3.5-5.1)
[2023-06-08 08:55] LABS: BLOOD UREA NITROGEN 75.3 mg/dL (7-18); CALCIUM 7.6 mg/dL (8.5-10.1)
[2023-06-08 08:56] LABS: ALBUMIN 2.9 g/dl (3.4-5.0)
[2023-06-08 08:59] LABS: CREATININE 6.4 mg/dL (0.55-1.3)
[2023-06-08 09:00] LABS: BILIRUBIN,TOTAL 0.4 mg/dL (0.2-1); TOT PROT 6.8 g/dl (6.4-8.2)
[2023-06-08] MEDS: hydrALAZINE HCL 50 MG TABLET (FP) PO SCH (10:53)
[2023-06-08] MEDS: PANTOPRAZOLE 40 MG TABLET PO SCH (10:53)
[2023-06-08] MEDS: levETIRAcetam 500 MG TABLET (FP) PO SCH (10:53)
[2023-06-08] MEDS: THIAMINE HCL 100 MG TABLET (FP) PO SCH (10:53)
[2023-06-08] MEDS: FOLIC ACID 1 MG TABLET (FP) PO SCH (10:54)
== END 2023-06-08 11:55 | DRG 194 ==
LOC: JER 13:24 → JERBED 17:05 → J7W 05-24 13:08
PROVIDERS: ADMIT Internal Medicine; ATTEND Internal Medicine
DX: I13.2 Hypertensive heart and chronic kidney disease with heart failure and with stage 5 chronic kidney disease, or end stage renal disease (principal); I50.33 Acute on chronic diastolic (congestive) heart failure; N18.5 Chronic kidney disease, stage 5; E11.22 Type 2 diabetes mellitus with diabetic chronic kidney disease; C67.9 Malignant neoplasm of bladder, unspecified; I25.10 Atherosclerotic heart disease of native coronary artery without angina pectoris; E78.5 Hyperlipidemia, unspecified; F20.9 Schizophrenia, unspecified; N40.0 Benign prostatic hyperplasia without lower urinary tract symptoms; G40.909 Epilepsy, unspecified, not intractable, without status epilepticus; I25.2 Old myocardial infarction; D18.09 Hemangioma of other sites; D63.1 Anemia in chronic kidney disease; F10.129 Alcohol abuse with intoxication, unspecified
CPT/HCPCS: 36415; 36430; 70450-TC; 71045-TC-FY; 73502-TC-LT-FY; 80048; 80053; 81003; 82728; 82962; 83540; 83550; 83690; 83735; 83880; 84100; 84484; 85025; 85027; 86850; 86900; 86901; 86922; 87086; 87186; 87635; 93005; 93010; 93306-TC; 93970-TC; 93971; 97116-GP; 97161-GP; 99285-25; J1644; J1756; P9058; Q5106

== ENCOUNTER 2023-06-09 14:15 | Inpatient (IN) | payer OTHER ==
[2023-06-09 16:19] LABS: HEMATOCRIT 26.2 % (35.4-49); HEMOGLOBIN 8.7 GM/dL (11.7-16.9); MCH 28.3 pg (25.7-33.7); MCHC 33.1 g/dl (32.0-35.9); MEAN CELL VOLUME 85.7 fl (80-96); MEAN PLT VOLUME 6.2 fl (7.5-11.1); PLATELET COUNT 297 10^3/uL (134-434); RBC 3.06 M/mm3 (4.00-5.60); RDW 18.4 % (11.9-15.9); WHITE BLOOD COUNT 5.1 K/mm3 (4.0-10.0)
[2023-06-09 16:36] LABS: POTASSIUM 4.1 mmol/L (3.5-5.1)
[2023-06-09 16:39] LABS: CALCIUM 7.3 mg/dL (8.5-10.1)
[2023-06-09 16:40] LABS: ALBUMIN 3.1 g/dl (3.4-5.0); BLOOD UREA NITROGEN 74.9 mg/dL (7-18)
[2023-06-09 16:42] LABS: CREATININE 6.3 mg/dL (0.55-1.3)
[2023-06-09 16:44] LABS: BILIRUBIN,TOTAL 0.2 mg/dL (0.2-1); TOT PROT 7.3 g/dl (6.4-8.2)
[2023-06-09] MEDS: INSULIN SLIDING SCALE (NOVOLOG) 1 VIAL SQ SCH (21:38)
[2023-06-09] MEDS ORDERED: levETIRAcetam 500 MG TABLET (FP) PO ONE (21:45)
[2023-06-09] MEDS ORDERED: hydrALAZINE HCL 50 MG TABLET (FP) ONE (21:45)
[2023-06-09] MEDS ORDERED: ATORVASTATIN CA 20 MG TABLET (FP) ONE (21:45)
[2023-06-09] MEDS ORDERED: QUEtiapine FUMARATE 25 MG TABLET ONE (21:45)
[2023-06-09] MEDS ORDERED: FERROUS SO4 325 MG TABLET (FP) ONE (21:45)
[2023-06-09] MEDS ORDERED: HEPARIN NA (PORCINE) 5,000 UNITS/ML 1ML VIAL ONE (21:46)
[2023-06-09] MEDS: QUEtiapine FUMARATE 25 MG TABLET PO SCH (21:56)
[2023-06-09] MEDS: HEPARIN NA (PORCINE) 5,000 UNITS/ML 1ML VIAL SQ SCH (21:57)
[2023-06-09] MEDS: ATORVASTATIN CA 20 MG TABLET (FP) PO SCH (21:57)
[2023-06-09] MEDS: levETIRAcetam 500 MG TABLET (FP) PO SCH (21:57)
[2023-06-09] MEDS: FERROUS SO4 325 MG TABLET (FP) PO SCH (21:57)
[2023-06-09] MEDS: hydrALAZINE HCL 50 MG TABLET (FP) PO SCH (21:57)
[2023-06-09] MEDS ORDERED: CARVEDILOL 25 MG TABLET (FP) PO SCH (22:00)
[2023-06-09 23:26] LABS: MAGNESIUM 1.4 mg/dL (1.8-2.4)
[2023-06-10] MEDS: HEPARIN NA (PORCINE) 5,000 UNITS/ML 1ML VIAL SQ SCH ×3 (06:28→22:48)
[2023-06-10] MEDS: INSULIN SLIDING SCALE (NOVOLOG) 1 VIAL SQ SCH ×4 (06:29→22:47)
[2023-06-10 08:03] VITALS: BMI 30.7
[2023-06-10] MEDS: SEVELAMER CARBONATE 800 MG TAB (FP) PO SCH ×3 (09:51→16:50)
[2023-06-10] MEDS: levETIRAcetam 500 MG TABLET (FP) PO SCH ×2 (10:25→22:47)
[2023-06-10] MEDS: THIAMINE HCL 100 MG TABLET (FP) PO SCH (10:25)
[2023-06-10] MEDS: hydrALAZINE HCL 50 MG TABLET (FP) PO SCH ×2 (10:25→22:47)
[2023-06-10] MEDS: FERROUS SO4 325 MG TABLET (FP) PO SCH (10:25)
[2023-06-10] MEDS: FOLIC ACID 1 MG TABLET (FP) PO SCH (10:25)
[2023-06-10] MEDS: PANTOPRAZOLE 40 MG TABLET PO SCH (10:25)
[2023-06-10] MEDS: QUEtiapine FUMARATE 25 MG TABLET PO SCH (22:47)
[2023-06-10] MEDS: ATORVASTATIN CA 20 MG TABLET (FP) PO SCH (22:47)
[2023-06-11] MEDS: HEPARIN NA (PORCINE) 5,000 UNITS/ML 1ML VIAL SQ SCH ×3 (06:39→22:44)
[2023-06-11] MEDS: INSULIN SLIDING SCALE (NOVOLOG) 1 VIAL SQ SCH ×4 (06:43→22:49)
[2023-06-11 08:24] LABS: BASO % 1.2 % (0-2.0); EOS % 3.9 % (0-4.5); HEMATOCRIT 24.8 % (35.4-49); HEMOGLOBIN 8.1 GM/dL (11.7-16.9); LYMPH % 32.3 % (8-40); MCHC 32.7 g/dl (32.0-35.9); MEAN CELL VOLUME 85.6 fl (80-96); MEAN PLT VOLUME 6.7 fl (7.5-11.1); MONO % 8.6 % (3.8-10.2); PLATELET COUNT 234 10^3/uL (134-434); RDW 17.9 % (11.9-15.9); WHITE BLOOD COUNT 4.5 K/mm3 (4.0-10.0)
[2023-06-11 08:50] LABS: CHLORIDE 117 mmol/L (98-107); POTASSIUM 4.1 mmol/L (3.5-5.1); SODIUM 145 mmol/L (136-145)
[2023-06-11] MEDS ORDERED: INSULIN (NOVOLOG) ASPART 100 UNITS/ML 10ML VIAL ONE (08:50)
[2023-06-11 08:52] LABS: ANION GAP 10 MMOL/L (8-16); BLOOD UREA NITROGEN 74.2 mg/dL (7-18); CO2 18 mmol/L (21-32); GLUCOSE,RANDOM 78 mg/dL (74-106)
[2023-06-11] MEDS: SEVELAMER CARBONATE 800 MG TAB (FP) PO SCH ×3 (08:54→17:18)
[2023-06-11 08:55] LABS: CALCIUM 6.9 mg/dL (8.5-10.1); CREATININE 6.4 mg/dL (0.55-1.3)
[2023-06-11] MEDS: FERROUS SO4 325 MG TABLET (FP) PO SCH (10:24)
[2023-06-11] MEDS: PANTOPRAZOLE 40 MG TABLET PO SCH (10:25)
[2023-06-11] MEDS: hydrALAZINE HCL 50 MG TABLET (FP) PO SCH ×2 (10:25→22:44)
[2023-06-11] MEDS: THIAMINE HCL 100 MG TABLET (FP) PO SCH (10:25)
[2023-06-11] MEDS: FOLIC ACID 1 MG TABLET (FP) PO SCH (10:26)
[2023-06-11] MEDS: levETIRAcetam 500 MG TABLET (FP) PO SCH ×2 (10:26→22:44)
[2023-06-11] MEDS ORDERED: CALCIUM GLUCONATE 10% - 1,000 MG/10 ML VIAL IVPB ONE (13:42)
[2023-06-11] MEDS: QUEtiapine FUMARATE 25 MG TABLET PO SCH (22:44)
[2023-06-11] MEDS: ATORVASTATIN CA 20 MG TABLET (FP) PO SCH (22:44)
[2023-06-12] MEDS: HEPARIN NA (PORCINE) 5,000 UNITS/ML 1ML VIAL SQ SCH (05:37)
[2023-06-12 05:41] VITALS: RESP 18
[2023-06-12] MEDS: INSULIN SLIDING SCALE (NOVOLOG) 1 VIAL SQ SCH (07:04)
[2023-06-12] MEDS: SEVELAMER CARBONATE 800 MG TAB (FP) PO SCH (08:19)
[2023-06-12] MEDS: levETIRAcetam 500 MG TABLET (FP) PO SCH (10:47)
[2023-06-12] MEDS: hydrALAZINE HCL 50 MG TABLET (FP) PO SCH (10:51)
[2023-06-12] MEDS: PANTOPRAZOLE 40 MG TABLET PO SCH (11:01)
[2023-06-12] MEDS: FERROUS SO4 325 MG TABLET (FP) PO SCH (11:01)
[2023-06-12] MEDS: THIAMINE HCL 100 MG TABLET (FP) PO SCH (11:01)
[2023-06-12] MEDS: FOLIC ACID 1 MG TABLET (FP) PO SCH (11:01)
[2023-06-12 11:47] VITALS: BP 153/72; PULSE 75; TEMP 98.1
== END 2023-06-12 10:58 | disposition left against medical advice (07) | DRG 351 ==
LOC: JER 14:15 → JERBED 18:02 → J7W 23:02
PROVIDERS: ADMIT Internal Medicine; ATTEND Internal Medicine
DX: R26.2 Difficulty in walking, not elsewhere classified (principal); I13.2 Hypertensive heart and chronic kidney disease with heart failure and with stage 5 chronic kidney disease, or end stage renal disease; E11.22 Type 2 diabetes mellitus with diabetic chronic kidney disease; N18.5 Chronic kidney disease, stage 5; I50.32 Chronic diastolic (congestive) heart failure; F20.9 Schizophrenia, unspecified; F10.10 Alcohol abuse, uncomplicated; I25.10 Atherosclerotic heart disease of native coronary artery without angina pectoris; E78.5 Hyperlipidemia, unspecified; G40.909 Epilepsy, unspecified, not intractable, without status epilepticus; Z85.51 Personal history of malignant neoplasm of bladder
CPT/HCPCS: 36415; 80048; 80053; 82962; 83735; 85025; 85027; 93005; 93010; 97116-GP; 99285-25; J1644